=== PATIENT | female | born 1960 | race Caucasian/White ===

== ENCOUNTER 2018-06-27 22:47 | Emergency (ER) | payer MEDICAID, SELFPAY ==
[2018-06-27 22:48] VITALS: BP 151/90; PULSE 85; RESP 16; TEMP 36.3; O2SAT 98; BMI 17.4
--- NOTE | 2018-06-27 23:02 | ED.VISSUMM ---
- ER Visit Summary Date of Service: 06/27/18 Chief Complaint: [] Foot injury History of Present Illness: The patient is a 57 F patient stated she injured her left foot just prior to arrival tonight when she accidentally kicked a Bookholder in the dark. She is having tenderness in her second and third toes. No home treatment. Want to make sure she did not fracture it. She alee tape the toes together. Hurts to walk on it. 4 days ago she kicked the same object with her right oleary while walking in the dark. She just has a mild scabbed area with slight soreness. Physical Examination: [] Vital signs reviewed General: Well-nourished well-developed Head: Normocephalic atraumatic Eyes: Pupils equal round and reactive to light extraocular movements intact ENT: TMs clear no hemotympanum no trauma Neck: Nontender full range of motion Cardiovascular: Regular rate rhythm no murmurs normal S1-S2 Respiratory: No distress clear to auscultation bilaterally chest nontender Abdomen: Soft nontender nondistended normal bowel sounds no masses Back: Nontender no CVA tenderness Extremities: Right oleary exam has a 3 x 3 cm scab to her right anterior oleary over the lateral portion of the anterior tibialis muscle mid shaft. No bony tenderness. No swelling deformity or contusion. Left foot has tenderness in the second and third toes. Very small contusion at the base of these toes. No significant swelling Neuro alert oriented cranial nerves II through XII intact normal strength sensation reflexes Test Results: [] Emergency Department Course and Treatment: [] At this time I do not feel the patient fractured her right tibia. She has bruised it. It happened 4 days ago. I do not think she needs x-rays of this area. She is in agreement. I offered them to her if she would want them to ease her thoughts but she does not think she needs them as well. She mainly came in for her left foot. She does not want anything for discomfort. X-ray was obtained of her left foot where there is a fracture to her third toe proximal phalanx. She is placed in a postop shoe. She will alee tape. She declined crutches. She will follow-up with orthopedics Treatment Plan: [] Disposition: [] Impression: [] Left third toe fracture This note was generated with [employer] dictation software. It may contain incorrect words, spelling, and punctuation that were not noted in review of the chart prior to signing ED Disposition - Plan for ED Patient: Chief Complaint: Lower Extremity Injury Referrals: Jocelynn Shaw MD [Primary Care Provider] -
--- NOTE | 2018-06-27 23:06 | RAD_ITS ---
STUDY: X-RAY - LEFT FOOT CLINICAL: Female, 57 years old. Trauma TECHNIQUE: 3 view(s) of the foot. COMPARISON: None. FINDINGS: Normal talus, calcaneus, and tarsal bones. Normal visualized subtalar, talonavicular, calcaneocuboid, tarsal and tarsometatarsal articulations. Normal metatarsi. Normal metatarsophalangeal joint of the great toe. Normal tibial and fibular sesamoid bones. Normal interphalangeal joint of the great toe. Normal phalanges of the great toe. Normal second through fifth metatarsophalangeal joints. Normal interphalangeal joints. There is an acute spiral fracture through the midshaft of the proximal phalanx of the third toe without significant separation or angulation of fracture fragments The soft tissue structures are unremarkable. RAD/Foot min 3 Views IMPRESSION: Acute fracture of the proximal phalanx of the third toe Electronically Signed: Margarito Ruiz MD at 23:44 EST , Service support ,
--- NOTE | 2018-06-27 23:59 | ED.DEP ---
ED Disposition - Plan for ED Patient: Disposition: Home or Assisted Living Chief Complaint: Lower Extremity Injury Instructions: ED Fx Toe Closed Referrals: Jocelynn Shaw MD [Primary Care Provider] - David Ventura MD [STAFF PHYSICIAN] -
[2018-06-28 00:29] VITALS: RESP 16
--- NOTE | 2018-06-28 00:29 | ED.RN ---
REVIEWED D/C INSTRUCTIONS, FOLLOW UP CARE, AND S/S THAT WOULD WARRANT A RETURN TO THE ED WITH PT. PT VERBALIZED AN UNDERSTANDING AND DENIES FURTHER QUESTIONS FOR THIS RN. PT SKIN P/W/D, RESP EVEN AND UNLABORED, PT A&O X 3, NO DISTRESS NOTED. PT AMBULATED OUT OF ED, GAIT STEADY.
--- OUTSIDE RECORDS SUMMARY | 2018-08-13 15:51 | XMS RPT_ITS ---
:1960 Author Organization [facility] Care Team Providers Name Role Phone GRACIE MARIE (PT) Attending Unavailable STARDONNA Referring Unavailable GRACIE MARIE (PT) Attending Unavailable STAR, DNONA Referring Unavailable GRACIE MARIE (PT) Attending Unavailable STAR, DONNA Referring Unavailable GRACIE MARIE (PT) Attending Unavailable STAR, DONNA Referring Unavailable GRACIE MARIE (PT) Attending Unavailable STAR, DONNA Referring Unavailable DANIEL KEENE Attending Unavailable NIKO HERSIMREN Referring Unavailable GRACIE MARIE (PT) Attending Unavailable STAR, DONNA Referring Unavailable OLGA ANDERSON (DAMAGE INSIDE ADJUSTER) Referring Unavailable GANTA, JOCELYNN Attending Unavailable GANTA, JOCELYNN Referring Unavailable GANTA, JOCELYNN Referring Unavailable ROBYN HEMPHILL (PA) Referring Unavailable ROBYN HEMPHILL (PA) Attending Unavailable GANTA, JOCELYNN Referring Unavailable ALYCIA HEMPHILLHLEEN (PA) Referring Unavailable JOBY, ROBYN (PA) Attending Unavailable GANTA, JOCELYNN Referring Unavailable Primay Care Physicia, No Primary Care Unavailable Charan Cohen Attending Unavailable PROBLEMS PROBLEMS DATE TYPE CONDITION / CODE ATTENDING STATUS SOURCE 07/18/2018 Active Nondisplaced NA Active [facility] fracture of Main Fine proximal phalanx Repository of left lesser toe(s), initial encounter for closed fracture / S92.515A(ICD-10) 07/02/2018 Active Pain in left foot NA Active [facility] / M79.672(ICD-10) Main Fine Repository 06/19/2018 Active Encounter for NA Active [facility] other screening Main Fine for malignant Repository neoplasm of breast / Z12.39(ICD-10) 06/12/2018 Active Elevated NA Active [facility] blood-pressure Main Fine reading, without Repository diagnosis of hypertension / R03.0(ICD-10) 06/12/2018 Active Vitamin D NA Active [facility] deficiency, Main Fine unspecified / Repository E55.9(ICD-10) 08/08/2017 Active Unknown / CYNTHIA GRACIE Active [facility] UNK(Unknown) (PT) Main Fine Repository PROCEDURES PROCEDURES No Procedure Records FoundRESULTS RESULTS PROGRESS Observed: 07/23/2018 Status: COMPLETED Source: [place] 12:02 PM [facility] REPOSITORY HNO ID: [id number] Author: Robyn Hemphill (Pa) Service: (none) Author Type: Physician Claim Professional Type: Progress Notes Filed: 07/23/2018 2:12 PM Note Text: JOCELYNN SALDIVAR MD [address] [facility] [id number] Specialty Problems Ortho Problems Myalgia and myositis, unspecified Shoulder stiffness Radiculopathy, cervical region Primary osteoarthritis of first carpometacarpal joint of left hand Cubital tunnel syndrome on left Lateral epicondylitis of left elbow Chronic left shoulder pain Pain in left wrist Numbness and tingling in left upper extremity Pain in left elbow CC: Left toe fracture ? Injury/Surgery Date:06/27/2018 Procedure: N/A ? HPI: This is a 57 year old female who is here for evaluation of left 3rd toe injury when she hit it on the coffee table. She went to ED later that day and she had a 3rd prox phalanx fracture. She is here for 3 weeks f/u and xrays. She is doing well. She still wearing a postop shoe. She has had improvement but still complains of swelling in the toe. PAIN EVALUATION 07/23/2018 Pain Score: 3 Pain Location: Toe Description: Aching Duration Units: Weeks Frequency: Continuous Intervention: Medication;Reposition ASSESSMENT: (S92.515D) Closed nondisplaced fracture of proximal phalanx of lesser toe of left foot with routine healing, subsequent encounter (primary encounter diagnosis) PLAN: 1) Discussed options with the patient and recommended continuing with alee tape and postop shoe for the next 3 weeks. I'll see her back at that time for repeat clinical evaluation and radiographs, anytime sooner she has any problems. PHYSICAL FINDINGS: [facility] 02/11/2006 General appearance: healthy, alert, well hydrated, pleasant, no distress. Cardiovascular: no signs of upper or lower extremity edema Respiratory: no respiratory distress, no audible wheezing, no labored breathing Psychiatric: mood and affect are appropriate The Pt walks with antalgic gait favoring the left foot Musculoskeletal: Inspection: Mild soft tissue swelling of the left third digit Palpation: Tenderness to palpation left third digit and forefoot ROM: FROM Bilateral Lower Extremities Strength: 5/5 Bilateral Lower Extremities Special Tests: Calves supple and nontender Skin: no abrasions or open wounds. Neurologic: Alert and oriented x 3 and Normal speech. NVI distally. 2+ DP pulses RADIOGRAPHS:I personally reviewed multiple views of the left foot and results show no change in Alignment and positioning of fx. Robyn Hemphill PA-C CNOV Observed: 07/23/2018 Status: COMPLETED Source: [place] 11:50 AM [facility] REPOSITORY Office Visit (ORFTMN) DAVID NATION ([id number]) 1960 F Date Time Provider Department 07/23/18 11:50 AM ROBYN HEMPHILL) ORFTMN During your visit today, we recorded the following information about you: Robyn Hemphill PA-C 07/23/2018 2:12 PM Signed JOCELYNN SALDIVAR MD [id number] [facility] [address] Specialty Problems Ortho Problems Myalgia and myositis, unspecified Shoulder stiffness Radiculopathy, cervical region Primary osteoarthritis of first carpometacarpal joint of left hand Cubital tunnel syndrome on left Lateral epicondylitis of left elbow Chronic left shoulder pain Pain in left wrist Numbness and tingling in left upper extremity Pain in left elbow CC: Left toe fracture ? Injury/Surgery Date:06/27/2018 Procedure: N/A ? HPI: This is a 57 year old female who is here for evaluation of left 3rd toe injury when she hit it on the coffee table. She went to ED later that day and she had a 3rd prox phalanx fracture. She is here for 3 weeks f/u and xrays. She is doing well. She still wearing a postop shoe. She has had improvement but still complains of swelling in the toe. PAIN EVALUATION 07/23/2018 Pain Score: 3 Pain Location: Toe Description: Aching Duration Units: Weeks Frequency: Continuous Intervention: Medication;Reposition ASSESSMENT: (S96.515D) Closed nondisplaced fracture of proximal phalanx of lesser toe of left foot with routine healing, subsequent encounter (primary encounter diagnosis) PLAN: 1) Discussed options with the patient and recommended continuing with alee tape and postop shoe for the next 3 weeks. I'll see her back at that time for repeat clinical evaluation and radiographs, anytime sooner she has any problems. PHYSICAL FINDINGS: LMP 02/11/2006 General appearance: healthy, alert, well hydrated, pleasant, no distress. Cardiovascular: no signs of upper or lower extremity edema Respiratory: no respiratory distress, no audible wheezing, no labored breathing Psychiatric: mood and affect are appropriate The Pt walks with antalgic gait favoring the left foot Musculoskeletal: Inspection: Mild soft tissue swelling of the left third digit Palpation: Tenderness to palpation left third digit and forefoot ROM: FROM Bilateral Lower Extremities Strength: 5/5 Bilateral Lower Extremities Special Tests: Calves supple and nontender Skin: no abrasions or open wounds. Neurologic: Alert and oriented x 3 and Normal speech. NVI distally. 2+ DP pulses RADIOGRAPHS:I personally reviewed multiple views of the left foot and results show no change in Alignment and positioning of fx. Robyn Hemphill PA-C Referring Provider: JOCELYNN SALDIVAR [[id number]] Allergies As of Date: 07/23/2018 Noted Allergy Reaction PENICILLINS 09/21/2005 2 - Rash PREDNISONE 09/21/2005 1 - Mental Status Change Comments: Depression Date Reviewed: 07/23/2018 Reviewed by: Robyn Hempihll (Pa) - Fully Assessed Reason for Visit: Follow Up [171] Primary Visit Diagnosis:Closed nondisplaced fracture of proximal phalanx of lesser toe of left foot with routine healing, subsequent encounter [S92.515D] Order(s):XR FOOT GENERAL 3V AP/LAT/OBL LT [[id number]] Order #: [id number] FUTURE Prescriptions as of 07/23/2018 Sig: ERGOCALCIFEROL (VITAMIN D2) 5* Take 1 capsule by mouth twice* ALBUTEROL SULFATE HFA 90 MCG/* Inhale 2 Puffs as instructed * CHOLECALCIFEROL (VITAMIN D3) * Take 1 capsule by mouth twice* ALBUTEROL SULFATE HFA 90 MCG/* Inhale 2 Puffs as instructed * ATOMOXETINE 60 MG CAPSULE Take 60 mg by mouth once juan luis* Problem List As Of Date 07/23/2018 Noted Resolved MYALGIA AND MYOSITIS NOS [[id number]] Tobacco use [Z72.0] INVALID FOR* Depression with anxiety [F41.8] INVALID FOR* More... Closed fracture of distal end of left radius [S*INVALID FOR*07/02/2018 Shoulder stiffness [M25.619] INVALID FOR* Radiculopathy, cervical region [M54.12] INVALID FOR* Reflex sympathetic dystrophy of left upper extr*INVALID FOR* Primary osteoarthritis of first carpometacarpal*INVALID FOR* Lateral epicondylitis of left elbow [M77.12] INVALID FOR* Cubital tunnel syndrome on left [G56.22] INVALID FOR* Pain in left wrist [M25.532] INVALID FOR* Chronic left shoulder pain [M25.512, G89.29] INVALID FOR* Pain in left elbow [M25.522] INVALID FOR* Numbness and tingling in left upper extremity [*INVALID FOR* Disposition: Return in about 3 weeks (around 08/13/2018). Follow-up and Disposition History Recorded Encounter Status:Closed by ROBYN HEMPHILL PA-C on 07/23/18 XR FOOT 3V AP/LAT/OBL Observed: 07/18/2018 Status: F Source: [facility] 1:01 PM [facility] REPOSITORY * * *Final Report* * * DATE OF EXAM: Jul 18 2018 1:01PM [id number] [id number] - XR FOOT 3V AP/LAT/OBL LT / PROCEDURE REASON: Closed nondisplaced fracture of proximal phalanx of lesser toe of left foot, ini * * * * Physician Interpretation * * * * HISTORY: 57-YEAR-OLD FEMALE WITH Closed nondisplaced fracture of proximal phalanx of lesser toe of left foot, initial encounter . pt states 3 week follow up for left 3rd toe fx TECHNIQUE: XR FOOT 3V AP/LAT/OBL LT Laterality: LEFT Number of different views (projections): 3 COMPARISON: 07/02/2018 RESULT: Fracture of the proximal phalanx of third digit without callus formation and slight medial displacement distal fracture fragment. Foot is otherwise unchanged. IMPRESSION: THIRD PROXIMAL PHALANGEAL FRACTURE UNCHANGED FROM PREVIOUS EXAM. Route Delivery Supervisor: ROSA Transcribe Date/Time: Jul 18 2018 4:41P Dictated by : ARMANDO US MD This examination was interpreted and the report reviewed and electronically signed by: ARMANDO US MD on Jul 18 2018 4:44PM EST [id number] PROGRESS Observed: 07/18/2018 Status: COMPLETED Source: [place] 12:53 PM [facility] REPOSITORY HNO ID: [id number] Author: Kimmy TierneyRtGarima Bass Service: (none) Author Type: Livestock Rancher Type: Progress Notes Filed: 07/18/2018 1:01 PM Note Text: Radiology Service Progress Note PATIENT NAME: David Nation DATE OF SERVICE: July 18, 2018 TIME: 12:53 PM PATIENT IDENTITY VERIFICATION COMPLETED USING TWO (2) METHODS: Patient confirmed name verbally and Date of . PATIENT GENDER DATA: Female. status: : No status: NO. PATIENT RELEVANT IMPLANT DATA REVIEWED: Not Applicable RADIOLOGY DEPARTMENT: General X-ray: Exam(s) Completed: Lower Extremity X-Ray(s): Foot, Left: PERIPHERAL IV DATA: Not applicable SIGNED BY: RT Evgeny July 18, 2018 12:53 PM PROGRESS Observed: 07/02/2018 Status: COMPLETED Source: [place] 1:15 PM [facility] REPOSITORY HNO ID: [id number] Author: oRbyn Hemphill (Pa) Service: (none) Author Type: Physician Claim Professional Type: Progress Notes Filed: 07/02/2018 3:00 PM Note Text: PROVIDER: Robyn Hemphill PA-C CC: Left toe fracture Injury/Surgery Date:06/27/2018 Procedure: N/A HPI: This is a 57 year old female who is here for evaluation of left 3rd toe injury when she hit it on the coffee table. She went to ED later that day and she had a 3rd prox phalanx fracture. She is wearing p/o shoe. PAIN EVALUATION 07/02/2018 Pain Score: 3 Pain Location: Toe Description: Aching Duration Units: Days Frequency: Intermittent Intervention: Medication;Relaxation;Reposition ASSESSMENT: (M79.672) Pain in left foot (primary encounter diagnosis) (S92.515A) Closed nondisplaced fracture of proximal phalanx of lesser toe of left foot, initial encounter PLAN: 1) Discussed options with the patient and recommended alee Taping and postop shoe x 2 weeks 2) return in 2 weeks for xrays and follow up to check alignment PHYSICAL FINDINGS: LMP 02/11/2006 General appearance: healthy, alert, well hydrated, pleasant, no distress. Cardiovascular: no signs of upper or lower extremity edema Respiratory: no respiratory distress, no audible wheezing, no labored breathing Psychiatric: mood and affect are appropriate The Pt walks with antalgic gait favoring the left foot Musculoskeletal: Inspection: Mild soft tissue swelling of the left forefoot. No rotational deformity of the third digit Palpation: Tenderness to palpation left third toe proximal phalanx ROM: FROM Bilateral Lower Extremities Strength: 5/5 Bilateral Lower Extremities Special Tests: Calves supple and nontender Skin: no abrasions or open wounds. Neurologic: Alert and oriented x 3 and Normal speech. NVI distally. 2+ DP pulses RADIOGRAPHS: I personally reviewed multiple views of the left foot and results show an oblique fracture through the third proximal phalanx, nondisplaced. ROS: the following ROS are reviewed and are negative except for mentioned above: general, skin, ent, pulmonary, cardiac, gastrointestional, gu, endo, neurologic. 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 Primary Osteoarthritis of First Carpometacarpal Joint of Left Hand Lateral Epicondylitis of Left Elbow Cubital Tunnel Syndrome On Left Pain in Left Wrist Chronic Left Shoulder Pain Pain in Left Elbow Numbness and Tingling in Left Upper Extremity PSH: PAST SURGICAL HISTORY Procedure Laterality Date - APPENDECTOMY - LIGATE FALLOPIAN TUBE Tubal ligation FAMILY HX: FAMILY HISTORY Problem Relation Age of Onset - Cancer Mother - Cancer Other Niece (sister's daughter) - Psychiatry Sister suicide - Psychiatry Son Opoid dependency - Ischemic Heart Disease Brother 60 [place], heavy smoker, Etoh SOCIAL: Social History Marital status: Spouse name: Hayder Years of education: Number of children: 1 Occupational History 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 albuterol HFA (PROVENTIL HFA, VENTOLIN HFA) 90 mcg/actuation inhaler Inhale 2 Puffs as instructed every 4 hours as needed. atomoxetine (STRATTERA) 60 mg capsule Take 60 mg by mouth once daily. cholecalciferol, Vitamin D3, (VITAMIN D3) 50,000 unit cap capsule Take 1 capsule by mouth twice a week. ergocalciferol, vitamin D2, (DRISDOL) 50,000 unit capsule Take 1 capsule by mouth twice a week. No current facility-administered medications for this visit. Robyn Hemphill PA-C CNOV Observed: 07/02/2018 Status: COMPLETED Source: [place] 1:00 PM [facility] REPOSITORY Office Visit (ORFTMN) DAVID NATION ([id number]) 1960 F Date Time Provider Department 07/02/18 1:00 PM ROBYN HEMPHILL) OR[facility]MN During your visit today, we recorded the following information about you: Robyn Hemphill PA-C 07/02/2018 3:00 PM Signed PROVIDER: Robyn Hemphill PA-C CC: Left toe fracture Injury/Surgery Date:06/27/2018 Procedure: N/A HPI: This is a 57 year old female who is here for evaluation of left 3rd toe injury when she hit it on the coffee table. She went to ED later that day and she had a 3rd prox phalanx fracture. She is wearing p/o shoe. PAIN EVALUATION 07/02/2018 Pain Score: 3 Pain Location: Toe Description: Aching Duration Units: Days Frequency: Intermittent Intervention: Medication;Relaxation;Reposition ASSESSMENT: (M79.672) Pain in left foot (primary encounter diagnosis) (S92.515A) Closed nondisplaced fracture of proximal phalanx of lesser toe of left foot, initial encounter PLAN: 1) Discussed options with the patient and recommended alee Taping and postop shoe x 2 weeks 2) return in 2 weeks for xrays and follow up to check alignment PHYSICAL FINDINGS: LMP 02/11/2006 General appearance: healthy, alert, well hydrated, pleasant, no distress. Cardiovascular: no signs of upper or lower extremity edema Respiratory: no respiratory distress, no audible wheezing, no labored breathing Psychiatric: mood and affect are appropriate The Pt walks with antalgic gait favoring the left foot Musculoskeletal: Inspection: Mild soft tissue swelling of the left forefoot. No rotational deformity of the third digit Palpation: Tenderness to palpation left third toe proximal phalanx ROM: FROM Bilateral Lower Extremities Strength: 5/5 Bilateral Lower Extremities Special Tests: Calves supple and nontender Skin: no abrasions or open wounds. Neurologic: Alert and oriented x 3 and Normal speech. NVI distally. 2+ DP pulses RADIOGRAPHS: I personally reviewed multiple views of the left foot and results show an oblique fracture through the third proximal phalanx, nondisplaced. ROS: the following ROS are reviewed and are negative except for mentioned above: general, skin, ent, pulmonary, cardiac, gastrointestional, gu, endo, neurologic. 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 Primary Osteoarthritis of First Carpometacarpal Joint of Left Hand Lateral Epicondylitis of Left Elbow Cubital Tunnel Syndrome On Left Pain in Left Wrist Chronic Left Shoulder Pain Pain in Left Elbow Numbness and Tingling in Left Upper Extremity PSH: PAST SURGICAL HISTORY Procedure Laterality Date - APPENDECTOMY - LIGATE FALLOPIAN TUBE Tubal ligation FAMILY HX: FAMILY HISTORY Problem Relation Age of Onset - Cancer Mother - Cancer Other Niece (sister's daughter) - Psychiatry Sister suicide - Psychiatry Son Opoid dependency - Ischemic Heart Disease Brother 60 [place], heavy smoker, Etoh SOCIAL: Social History Marital status: Spouse name: Hayder Years of education: Number of children: 1 Occupational History 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 albuterol HFA (PROVENTIL HFA, VENTOLIN HFA) 90 mcg/actuation inhaler Inhale 2 Puffs as instructed every 4 hours as needed. atomoxetine (STRATTERA) 60 mg capsule Take 60 mg by mouth once daily. cholecalciferol, Vitamin D3, (VITAMIN D3) 50,000 unit cap capsule Take 1 capsule by mouth twice a week. ergocalciferol, vitamin D2, (DRISDOL) 50,000 unit capsule Take 1 capsule by mouth twice a week. No current facility-administered medications for this visit. Robyn Hemphill PA-C Referring Provider: JOCELYNN SALDIVAR [[id number]] Allergies As of Date: 07/02/2018 Noted Allergy Reaction PENICILLINS 09/21/2005 2 - Rash PREDNISONE 09/21/2005 1 - Mental Status Change Comments: Depression Date Reviewed: 07/02/2018 Reviewed by: Robyn Hemphill (Pa) - Fully Assessed Reason for Visit: Toe Fracture [1222] ER F/U [41] Primary Visit Diagnosis:Pain in left foot [M79.672] Other Visit Diagnosis:Closed nondisplaced fracture of proximal phalanx of lesser toe of left foot, initial encounter [S92.515A] Order(s):XR FOOT GENERAL 3V AP/LAT/OBL LT [[id number]] Order #: [id number] FUTURE XR FOOT GENERAL 3V AP/LAT/OBL LT [[id number]] Order #: [id number] FUTURE Prescriptions as of 07/02/2018 Sig: ALBUTEROL SULFATE HFA 90 MCG/* Inhale 2 Puffs as instructed * ALBUTEROL SULFATE HFA 90 MCG/* Inhale 2 Puffs as instructed * ATOMOXETINE 60 MG CAPSULE Take 60 mg by mouth once juan luis* CHOLECALCIFEROL (VITAMIN D3) * Take 1 capsule by mouth twice* ERGOCALCIFEROL (VITAMIN D2) 5* Take 1 capsule by mouth twice* Problem List As Of Date 07/02/2018 Noted Resolved MYALGIA AND MYOSITIS NOS [[id number]] Tobacco use [Z72.0] INVALID FOR* Depression with anxiety [F41.8] INVALID FOR* More... Closed fracture of distal end of left radius [S*INVALID FOR*07/02/2018 Shoulder stiffness [M25.619] INVALID FOR* Radiculopathy, cervical region [M54.12] INVALID FOR* Reflex sympathetic dystrophy of left upper extr*INVALID FOR* Primary osteoarthritis of first carpometacarpal*INVALID FOR* Lateral epicondylitis of left elbow [M77.12] INVALID FOR* Cubital tunnel syndrome on left [G56.22] INVALID FOR* Pain in left wrist [M25.532] INVALID FOR* Chronic left shoulder pain [M25.512, G89.29] INVALID FOR* Pain in left elbow [M25.522] INVALID FOR* Numbness and tingling in left upper extremity [*INVALID FOR* Medications Discontinued During This Encounter naproxen (NAPROSYN) 375 mg tablet 60 t* 5 04/17/2017 07/02/2018 Route: ORAL Sig: Take 1 tablet by mouth twice daily with meals. Patient not taking: Reported on 06/07/2018 Disc: Reason for discontinue is not on file. pregabalin (LYRICA) 25 mg capsule 90 c* 3 03/15/2017 07/02/2018 Class: Call Rx Route: ORAL Sig: Take 1 capsule by mouth three times daily. Patient not taking: Reported on 06/07/2018 Disc: Reason for discontinue is not on file. Disposition: Return in about 2 weeks (around 07/16/2018). Follow-up and Disposition History Recorded Encounter Status:Closed by ROBYN HEMPHILL PA-C on 07/02/18 XR FOOT 3V AP/LAT/OBL Observed: 07/02/2018 Status: F Source: [facility] 12:51 PM [facility] REPOSITORY * * *Final Report* * * DATE OF EXAM: Jul 02 2018 12:51PM [id number] [id number] - XR FOOT 3V AP/LAT/OBL LT / PROCEDURE REASON: Pain in left foot * * * * Physician Interpretation * * * * EXAMINATION: XR FOOT 3V AP/LAT/OBL LT HISTORY: left foot middle toe fx follow up; stubbed toe 06/27/18 Pain in left foot . TECHNIQUE: XR FOOT 3V AP/LAT/OBL LT Laterality: LEFT Number of different views (projections): 3 M: XB_1 COMPARISON: None. RESULT: There is an oblique nondisplaced fracture of the third proximal phalanx extending to the PIP joint. There is soft tissue swelling of the third digit. Joint spaces are otherwise maintained. IMPRESSION: Nondisplaced fracture of the third proximal phalanx. Route Delivery Supervisor: PSCShlomo Transcribe Date/Time: Jul 02 2018 1:36P Dictated by : JUAN HUERTAS MD This examination was interpreted and the report reviewed and electronically signed by: JUAN ANTONIO LOVE MD on Jul 02 2018 4:18PM EST [id number] PROGRESS Observed: 07/02/2018 Status: COMPLETED Source: [place] 12:49 PM [facility] REPOSITORY HNO ID: [id number] Author: Alie Schaefer Service: (none) Author Type: (none) Type: Progress Notes Filed: 07/02/2018 12:49 PM Note Text: Radiology Service Progress Note PATIENT NAME: David Nation DATE OF SERVICE: July 02, 2018 TIME: 12:49 PM PATIENT IDENTITY VERIFICATION COMPLETED USING TWO (2) METHODS: Patient confirmed name verbally and Date of . PATIENT GENDER DATA: Female. status: : No status: NO. PATIENT RELEVANT IMPLANT DATA REVIEWED: Yes RADIOLOGY DEPARTMENT: General X-ray: Exam(s) Completed: Lower Extremity X-Ray(s): Foot, Left and Wt. Bearing: PERIPHERAL IV DATA: Not applicable SIGNED BY: Alie Schaefer July 02, 2018 12:49 PM EMERGENCY DEPARTMENT Observed: 06/28/2018 Status: F Source: [facility] SUMMARY 7:15 AM [facility] REPOSITORY [facility] Medical Records Department [address] [place] [address] Emergency Department Summary 06/27/18 2302 MR#: [id number] Acct: [id number] Name: DAVID NATION Rep #: [id number] : 1960 57 From: Charan Cohen MD PCP: Jocelynn Saldivar MD Status: DEP ER - ER Visit Summary Date of Service: 06/27/18 Chief Complaint: [] Foot injury History of Present Illness: The patient is a 57 F patient stated she injured her left foot just prior to arrival tonight when she accidentally kicked a Bookholder in the dark. She is having tenderness in her second and third toes. No home treatment. Want to make sure she did not fracture it. She alee tape the toes together. Hurts to walk on it. 4 days ago she kicked the same object with her right oleary while walking in the dark. She just has a mild scabbed area with slight soreness. Physical Examination: [] Vital signs reviewed General: Well-nourished well-developed Head: Normocephalic atraumatic Eyes: Pupils equal round and reactive to light extraocular movements intact ENT: TMs clear no hemotympanum no trauma Neck: Nontender full range of motion Cardiovascular: Regular rate rhythm no murmurs normal S1-S2 Respiratory: No distress clear to auscultation bilaterally chest nontender Abdomen: Soft nontender nondistended normal bowel sounds no masses Back: Nontender no CVA tenderness Extremities: Right oleary exam has a 3 x 3 cm scab to her right anterior oleary over the lateral portion of the anterior tibialis muscle mid shaft. No bony tenderness. No swelling deformity or contusion. Left foot has tenderness in the second and third toes. Very small contusion at the base of these toes. No significant swelling Neuro alert oriented cranial nerves II through XII intact normal strength sensation reflexes Test Results: [] Emergency Department Course and Treatment: [] At this time I do not feel the patient fractured her right tibia. She has bruised it. It happened 4 days ago. I do not think she needs x-rays of this area. She is in agreement. I offered them to her if she would want them to ease her thoughts but she does not think she needs them as well. She mainly came in for her left foot. She does not want anything for discomfort. X-ray was obtained of her left foot where there is a fracture to her third toe proximal phalanx. She is placed in a postop shoe. She will alee tape. She declined crutches. She will follow-up with orthopedics Treatment Plan: [] Disposition: [] Impression: [] Left third toe fracture This note was generated with Virtualtwo dictation software. It may contain incorrect words, spelling, and punctuation that were not noted in review of the chart prior to signing ED Disposition - Plan for ED Patient: Chief Complaint: Lower Extremity Injury Referrals: Jocelynn Saldivar MD [Primary Care Provider] - What to do if you have Problems For any increased pain, shortness of breath, bleeding, nausea or vomiting, chest pain, or any unexpected problems, contact your Primary Care Provider. Call [facility] ([phone]) or report to the closest Emergency Room. Call 911 if necessary. 06/28/18 0715 <Electronically signed by Charan Coehn MD> Date Charan Cohen MD Cosigner Signature (If Indicated): Date CC: No Primary Care Physician; Jocelynn Saldivar MD DISCHARGE INSTRUCTION Observed: 06/28/2018 Status: F Source: [place] 7:15 AM [facility] REPOSITORY [facility] Medical Records Department [address] [place] [address] Discharge Instruction 06/27/18 2359 MR#: [id number] Acct: [id number] Name: RIOSDAVID Brandy Rep #: [id number] : 1960 57 From: Charan Cohen MD PCP: Jocelynn Saldivar MD Status: [facility] ER ED Disposition - Plan for ED Patient: Disposition: Home or Assisted Living Chief Complaint: Lower Extremity Injury Instructions: ED Fx Toe Closed Referrals: Jocelynn Saldivar MD [Primary Care Provider] - David Ventura MD [STAFF PHYSICIAN] - What to do if you have Problems For any increased pain, shortness of breath, bleeding, nausea or vomiting, chest pain, or any unexpected problems, contact your Primary Care Provider. Call [facility] ([phone]) or report to the closest Emergency Room. Call 911 if necessary. 06/28/18 0715 <Electronically signed by Charan Cohen MD> Date Charan Cohen MD Cosigner Signature (If Indicated): Date CC: No Primary Care Physician; Jocelynn Saldivar MD FOOT MIN 3 VIEWS Observed: 06/27/2018 Status: F Source: [place] 11:01 PM [facility] REPOSITORY [facility] Imaging Services [address] [place] [id number] Foot min 3 Views MR#: [id number] Acct: [id number] Name: DAVID NATION Rep #: [id number] : 1960 F 57 From: Margarito Ruiz MD PCP: Jocelynn Saldivar MD Status: REG ER Study: Foot min 3 Views Date of Exam: 06/27/18 Exam# [id number] Ordering Dr: Charan Cohen MD STUDY: X-RAY - LEFT FOOT CLINICAL: Female, 57 years old. Trauma TECHNIQUE: 3 view(s) of the foot. COMPARISON: None. FINDINGS: Normal talus, calcaneus, and tarsal bones. Normal visualized subtalar, talonavicular, calcaneocuboid, tarsal and tarsometatarsal articulations. Normal metatarsi. Normal metatarsophalangeal joint of the great toe. Normal tibial and fibular sesamoid bones. Normal interphalangeal joint of the great toe. Normal phalanges of the great toe. Normal second through fifth metatarsophalangeal joints. Normal interphalangeal joints. There is an acute spiral fracture through the midshaft of the proximal phalanx of the third toe without significant separation or angulation of fracture fragments The soft tissue structures are unremarkable. RAD/Foot min 3 Views IMPRESSION: Acute fracture of the proximal phalanx of the third toe Electronically Signed: Margarito Ruiz MD at 23:44 EST , Service support , CC: Jocelynn Saldivar MD; Charan Cohen MD Route Delivery Supervisor: Signed CNCO Observed: 06/19/2018 Status: COMPLETED Source: [place] 12:10 PM [facility] REPOSITORY HNO ID: [id number] Author: Mammography Coordinator Service: (none) Author Type: Physician Type: Letter Filed: 06/20/2018 11:32 PM Note Text: June 19, 2018 PID: [id number] David Nation [address] [place] [address] Dear Ms. Nation, We are pleased to inform you that the results of your recent breast imaging exam on 06/19/2018 are normal. Your mammogram demonstrates that you have dense breast tissue, which could hide abnormalities. Dense breast tissue, in and of itself, is a relatively common condition. Therefore, this information is not provided to cause undue concern; rather, it is to raise your awareness and promote discussion with your health care provider regarding the presence of dense breast tissue in addition to other risk factors. Early detection of cancer is very important. We also understand recommendations regarding breast cancer screening are controversial. Please discuss with your primary care provider which strategy is best for you and whether a mammogram is right for you. Your imaging studies and report will be kept on file at [facility] as part of your permanent medical record and are available for your continuing care. Thank you for allowing us to help in meeting your health care needs. Sincerely, Dr. Calixto Interpreting Radiologist [facility] (Normal over 40) PROCEDURE Observed: 06/19/2018 Status: COMPLETED Source: [place] 11:15 AM [facility] [place] REPOSITORY O ID: [id number] Author: Little (Garima Quinonez Service: (none) Author Type: Livestock Rancher Type: Procedures Filed: 06/19/2018 11:15 AM Note Text: Radiology Service Progress Note PATIENT NAME: David Nation DATE OF SERVICE: June 19, 2018 TIME: 11:15 AM PATIENT IDENTITY VERIFICATION COMPLETED USING TWO (2) METHODS: Patient confirmed name verbally and Date of . PATIENT GENDER DATA: Female. status: : No status: NO. PATIENT RELEVANT IMPLANT DATA REVIEWED: Not Applicable RADIOLOGY DEPARTMENT: [facility] IV DATA: Not applicable SIGNED BY: RT Lucien June 19, 2018 11:15 AM LACHELLE SCREENING Observed: 06/19/2018 Status: F Source: [place] 11:15 AM [facility] REPOSITORY * * *Final Report* * * DATE OF EXAM: Jun 19 2018 11:15AM [facility] 0581 - [facility] SCREENING / PROCEDURE REASON: Breast cancer screening other than mammogram * * * * Physician Interpretation * * * * RESULT: #[id number] - LACHELLE SCREENING BILATERAL DIGITAL SCREENING MAMMOGRAM WITH CAD: 06/19/2018 HISTORY: Breast Cancer Screening Other Than Mammogram /priors available for comparison. RESULT: TECHNIQUE: The study was acquired using full field digital technology and interpreted from soft copy. Current study was also evaluated with a Computer Aided Detection (CAD). Comparison is made to exams dated: 03/09/2017 mammogram and 05/04/2015 mammogram - [facility]. The tissue of both breasts is heterogeneously dense. This may lower the sensitivity of mammography. No significant masses, calcifications, or other findings are seen in either breast. There has been no significant interval change. IMPRESSION: There is no mammographic evidence of malignancy. A 1 year screening mammogram is recommended. Lorena Calixto M.D., mc/penrad:06/19/2018 12:10:06 Air Twist Operator(s): RT Lucien(R)(M), [facility] letter sent: Normal over 40 Mammogram BI-RADS: 1 Negative Multiple national specialty organizations have released breast cancer screening guidelines for women at average risk for developing breast cancer - guidelines that are based on both evidence and opinion, yet differ on when to start and how often to screen for breast cancer. With representation from Breast Imaging, Internal Medicine, Women's Health, Family Medicine, and Medical/Surgical Oncology, the [facility] has carefully reviewed the data and reached the following consensus: 1) All women should engage in shared decision-making with their providers to decide when to start and how often to screen; 2) All women should have the opportunity to start screening mammography at age 40; 3) For women ages 45-55, we recommend annual screening mammograms; 4) For women ages 55 and over, we support both the transition from an annual to a biennial interval if this aligns more with patient's values and preferences, or continuation with annual screening; 5) All women should discuss with their providers when to stop screening mammograms. Route Delivery Supervisor: Princess Transcribe Date/Time: Jun 19 2018 11:15A Dictated by: LORENA SNOWDEN MD This examination was interpreted and the report reviewed and electronically signed by: LORENA SNOWDEN MD on Jun 19 2018 12:10PM EST [id number] CBC AND DIFFERENTIAL Collected: 06/12/2018 Status: F Source: [place] 11:52 AM [facility] REPOSITORY TYPE CODE TESTS RESULT OUT OF REFERENCE UNITS RANGE LAB WBC 3.70-11.00 k/uL WBC 6.24 LAB RBC 3.90-5.20 m/uL RBC 4.25 LAB HGB 11.5-15.5 g/dL Hemoglobin 13.1 LAB HCT 36.0-46.0 % Hematocrit 41.0 LAB MCV 80.0-100.0 fL MCV 96.5 LAB MCH 26.0-34.0 pG MCH 30.8 LAB MCHC 30.5-36.0 g/dL MCHC 32.0 LAB RDWCV 11.5-15.0 % RDW-CV 11.8 LAB PLTCT 150-400 k/uL Platelet Count 328 LAB MPV 9.0-12.7 fL MPV 9.5 LAB ANEUT % Neut% 58.7 LAB AANEUT 1.45-7.50 k/uL Abs Neut 3.66 LAB ALYMP % Lymph% 30.1 LAB AALYMP 1.00-4.00 k/uL Abs Lymph 1.88 LAB AMONO % [place]% 7.1 LAB AAMONO <0.87 k/uL Abs [place] 0.44 LAB AEOS % Eosin% 3.0 LAB AAEOS <0.46 k/uL Abs Eosin 0.19 LAB ABASO % Baso% 1.1 LAB AABASO <0.11 k/uL Abs Baso 0.07 LAB AUNRBC 0 /100 WBC NRBCs 0.0 LAB ABNRBC <0.01 k/uL Absolute nRBC <0.01 LAB DTYP DTYPE Auto Diff Performed By: #### CBCDIF, CMP, LIPB, VITD #### [facility] [address] [place], [place] [address] COMP METABOLIC PANEL Collected: 06/12/2018 Status: F Source: [place] 11:52 AM [facility] REPOSITORY TYPE CODE TESTS RESULT OUT OF REFERENCE UNITS RANGE LAB TP 6.3-8.0 g/dL Protein, Total 6.6 LAB ALB 3.9-4.9 g/dL Albumin 4.1 LAB CA 8.5-10.2 mg/dL Calcium, Total 9.1 LAB TBIL 0.2-1.3 mg/dL Bilirubin, Total 0.4 LAB ALKP 34-123 U/L Alkaline Phosphatase 71 LAB AST 13-35 U/L AST 21 LAB GLU 74-99 mg/dL Glucose 83 Result Comment: The [place] Diabetes Association (ADA) provides guidance for cutoff values for fasting glucose and random glucose. The ADA defines fasting as no caloric intake for at least 8 hours. Fas ting plasma glucose results between 100 to 125 mg/dL indicate increased risk for diabetes (prediabetes). Fasting plasma glucose results greater than or equal to 126 mg/dL meet the criteria for diagnosis of diabetes. In the absence of unequivocal hyperglycemia, results should be confirmed by repeat testing. In a patient with classic symptoms of hyperglycemia or hyperglycemic crisis, random plasma glucose results greater than or equal to 200 mg/dL meet the criteria for diagnosis of diabetes. Reference: Standards of Medical Care in Diabetes 2016, [place] Diabetes Association. Diabetes Care. 2016.39(Suppl 1). LAB BUN 7-21 mg/dL BUN 10 LAB CRET 0.58-0.96 mg/dL Creatinine 0.67 LAB NA 136-144 mmol/L Sodium 141 LAB K 3.7-5.1 mmol/L Potassium 4.5 LAB CL 97-105 mmol/L Chloride 105 LAB CO2 22-30 mmol/L CO2 25 LAB AGAP 9-18 mmol/L Anion Gap 11 LAB ALT 7-38 U/L ALT 11 LAB GFRAA eGFR- Amer. >60 LAB GFRNAA . eGFR-All Other Races >60 Result Comment: eGFR (Estimated GFR) Units of measure: mL/min/1.73 meters squared eGFR is derived from the reexpressed MDRD Study equation using the following parameters: serum creatinine, age, gender and race. The creatinine assay has been calibrated to be traceable to IDMS. An eGFR <60 mL/min/1.73m2 for >3 months is consistent with chronic kidney disease. Refer to KDOQI guidelines for clinical interpretation. In patients with unstable renal function, e.g. those with acute kidney injury, the eGFR may not accurately reflect actual GFR. Performed By: #### CBCDIF, CMP, LIPB, VITD #### [facility] [address] [place], [place] [address] LIPID PANEL, BASIC Collected: 06/12/2018 Status: F Source: [place] 11:52 AM [facility] REPOSITORY TYPE CODE TESTS RESULT OUT OF REFERENCE UNITS RANGE LAB CHOL <200 mg/dL Cholesterol 185 Result Comment: <200 mg/dL, Desirable 200-239 mg/dL, Borderline high >239 mg/dL, High LAB TRIGLY <150 mg/dL Triglyceride 67 Result Comment: <150 mg/dL, Normal 150-199 mg/dL, Borderline high 200-499 mg/dL, High >499 mg/dL, Very high LAB HDL >39 mg/dL HDL-Cholesterol 52 Result Comment: 40-59 mg/dL, Acceptable >59 mg/dL, High: Negative risk factor for coronary heart disease <40 mg/dL, Low: Positive risk factor for coronary heart disease LAB LDL <100 mg/dL LDL-Cholesterol High 120 Result Comment: <100 mg/dL, Optimal 100-129 mg/dL, Near optimal/above optimal 130-159 mg/dL, Borderline high 160-189 mg/dL, High >189 mg/dL, Very high Secondary prevention optimal LDL Cholesterol levels are recommended to be < 70 mg/dL LAB NONHDL <130 mg/dL Non HDL High Cholesterol 133 Result Comment: <130 mg/dL, Optimal 130-159 mg/dL, Near optimal/above optimal 160-189 mg/dL, Borderline high 190-219 mg/dL, High >219 mg/dL, Very high Secondary prevention optimal non HDL Cholesterol levels are recommended to be < 100 mg/dL LAB FT hrs Fasting Time 14 LAB VLDL <30 mg/dL VLDL Cholesterol 13 LAB TCHDL <5.10 TC:HDL Ratio 3.56 LAB LDLHDL <2.54 LDL:HDL Ratio 2.31 Result Comment: Reference: 1. National Cholesterol Education Program ATP III Guideline At-A-Glance Quick Desk Reference: National Heart, Lung, and Blood [place]. National Institutes of Health. 2001: NIH Publication No. 01-3305. 2. An International Atherosclerosis Society position paper: global recommendations for the management of dyslipidemia: executive summary, Atherosclerosis. 2014: 232(2):410-413. Performed By: #### CBCDIF, CMP, LIPB, VITD #### [facility] [address] [place] [id number] VITAMIN D 25 HYDROXY Collected: 06/12/2018 Status: F Source: [place] 11:52 AM [facility] REPOSITORY TYPE CODE TESTS RESULT OUT OF REFERENCE UNITS RANGE LAB VITD 31.0-80.0 ng/mL Low Vitamin D 25 17.3 Hydroxy Result Comment: Classification of 25 [place] Vitamin D status: Insufficiency/Moderate Deficiency: < or = 30 ng/mL Sufficiency/Optimal Levels: 31 to 80 ng/mL Toxicity: > 100 ng/mL Test performed by chemiluminescent immunoassay. Performed By: #### CBCDIF, CMP, LIPB, VITD #### [facility] [address] [place] [id number] PROGRESS Observed: 06/12/2018 Status: COMPLETED Source: [place] 10:31 AM [facility] REPOSITORY HNO ID: [id number] Author: Jocelynn Saldivar Service: (none) Author Type: Physician Type: Progress Notes Filed: 06/12/2018 1:06 PM Note Text: Reason for Visit Patient presents with: Established Patient: preventative visit- worried about BP David Nation is a 57 year old female who presents here today for CPE. Health Maintenance DTAP,TDAP,TD(1 - Tdap) HEPATITIS C SCREENING COLORECTAL CANCER SCREENING,SEE MODIFIER MAMMOGRAM INFLUENZA(1) HPI Severe vit d def , she has not followed up with me in quite a while. 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 Patient needs to have some labs She is concerned about her bp today, she knows off and on when she gets her bp checked. She did quit smoking and and did not drink her morning coffee. She is willing to but down Going to Use nicorette gums. She has been through a lot recent past 8 years, lost sister to suicide, brother of [place], and last november she broke her wrist, and last year her brother had aortic dissection. Notes she takes strattera, rx by Dr Travis. She was having problems sleeping, she took it a couple of times. She has a son who is struggling with opiate addiction. Diet is well balanced , stress is more because if her mother and son. Sleep - she sleeps well. No problem-specific Assessment AND Plan notes found for this encounter. PAST MEDICAL HISTORY Diagnosis Date - Attention deficit disorder without mention of hyperactivity Adult - Excessive or frequent menstruation - Myalgia and myositis, unspecified PAST SURGICAL HISTORY Procedure Laterality Date - APPENDECTOMY - LIGATE FALLOPIAN TUBE Tubal ligation FAMILY HISTORY Problem Relation Age of Onset - Cancer Mother - Cancer Unknown Niece (sister's daughter) - Psychiatry Sister suicide - Psychiatry Son Opoid dependency - Ischemic Heart Disease Brother 60 [place], heavy smoker, Etoh Social History Substance Use Topics - Smoking status: Former Smoker Types: Cigarettes - Smokeless tobacco: Never Used - Alcohol use No Past medical history, appointments, medications, allergies reviewed. Pertinent Lab/Diagnostic Studies are reviewed and discussed today Current Outpatient Prescriptions: - albuterol HFA (PROVENTIL HFA, VENTOLIN HFA) 90 mcg/actuation inhaler - doxycycline monohydrate (MONODOX) 100 mg capsule - atomoxetine (STRATTERA) 60 mg capsule - albuterol HFA (PROAIR HFA) 90 mcg/actuation inhaler - naproxen (NAPROSYN) 375 mg tablet - pregabalin (LYRICA) 25 mg capsule Review of Systems CONSTITUTIONAL: No fevers, chills, nightsweats, unintended weight loss HEENT: Denies frequent or severe heaches, nasal congestion/sinus symptoms, problematic allergy problems. EYES: No diplopia or blurry vision. CARDIOVASCULAR: No chest pain, dyspnea, palpitations, orthopnea, PND, ankle edema. PULM: No dyspnea, unexplained cough. GI: No dysphagia/odynophagia, problematic reflux, constipation, diarrhea, changes in stool habits, hematochezia, melena. : No new urinary complaints, including dysuria, gross hematuria or pyuria. NEURO: No new balance problems, peripheral weakness/paresthesias or numbness of concern. MUSC-SKEL: No new joint pain, swelling, or erythema. PSY: No concerns regarding depression, anxiety or panic. INTEGUMENTARY: No new skin changes (rash, new or changing mole, new growth) Physical Exam BP 124/70 (BP Site: Right Arm, BP Position: Sitting, BP Cuff Size: Regular Adult) Pulse 78 Resp 12 Ht 162.6 cm (5' 4) Wt 44.9 kg (99 lb) LMP 02/11/2006 SpO2 100% BMI 16.99 kg/m? General appearance: Well appearing, alert, in no acute distress, well-hydrated, well nourished. Skin: Skin color, texture, turgor normal, no suspicious rashes or lesions Head: Normocephalic, no masses, lesions, tenderness or abnormalities Eyes: Anicteric sclera. Pupils are equally round and reactive to light. Extraocular movements are intact. Ears: External ears normal, canals clear Nose/Sinuses: Nares normal, septum midline, mucosa normal, no drainage or sinus tenderness Oropharynx: Lips, mucosa, and tongue normal, teeth and gums normal, oropharynx normal Neck: Supple, no adenopathy; thyroid symmetric, normal size, no bruits Back: Normal exam Lungs: Lungs clear to auscultation. No wheezing, rhonchi, rales Heart: RRR without murmur, gallop, or rubs. No ectopy Abdomen: Normal abdominal exam, Abdomen soft, non-tender. Bowel sounds normal. No masses, organomegaly Extremities: No deformities, edema, skin discoloration, clubbing or cyanosis. Good capillary refill. Musculoskeletal: No joint swelling, deformity, or tenderness Peripheral pulses: Normal Neuro: Gait normal. Reflexes normal and symmetric. Sensation grossly intact. ASSESSMENT/PLAN: 1. Annual physical exam - ICD9: V70.0, ICD10: Z00.00 (primary diagnosis) - Encouraged monthly Breast Self Exam - Follow up for annual exam in one year. 2. Sinobronchitis - ICD9: 473.9, 490, ICD10: J32.9, J40 - Will begin treatment with as per antibiotic as written, see orders - ALBUTEROL SULFATE HFA 90 MCG/ACTUATION AEROSOL INHALER 3. Tobacco use - ICD9: 305.1, ICD10: Z72.0 - Cessation encouraged. - Physiologic and physical aspects of tobacco addiction as well as strategies for quitting were discussed. - Counseling was given focusing on the harmful effects of this addiction especially given the patient's medical condition(s) which will be worsened because of the chemicals in tobacco. 4. Depression with anxiety - ICD9: 300.4, ICD10: F41.8 5. Breast cancer screening other than mammogram - ICD9: V76.10, ICD10: Z12.39 - Completed pelvic and breast exam - Encouraged monthly BSE - Follow up for annual exam in one year. - LACHELLE SCREENING 6. Elevated blood pressure reading - ICD9: 796.2, ICD10: R03.0 - Encouraged dietary sodium restriction/DASH diet - Recommended regular aerobic exercise. - Recommend home blood pressure monitoring, to bring results in on next visit - Goal of BP <130/80 - LIPID PANEL BASIC - CBC + DIFF - COMP METABOLIC PANEL 7. Vitamin D deficiency - ICD9: 268.9, ICD10: E55.9 - VITAMIN D 25 HYDROXY - CHOLECALCIFEROL (VITAMIN D3) 50,000 UNIT CAPSULE 8. Colon cancer screening - ICD9: V76.51, ICD10: Z12.11 - FECAL OCCULT BLOOD TEST JOCELYNN SALDIVAR MD CNOV Observed: 06/12/2018 Status: COMPLETED Source: [place] 10:00 AM [facility] REPOSITORY Office Visit (INTMWS) DAVID NATION ([id number]) 1960 F Date Time Provider Department 06/12/18 10:00 AM JOCELYNN SALDIVAR During your visit today, we recorded the following information about you: Pulse Respiration Blood pressure Weight 78/minute 12/minute 124/70 44.9 kg Height 1.626 m JOCELYNN SALDIVAR MD 06/12/2018 1:06 PM Signed Reason for Visit Patient presents with: Established Patient: preventative visit- worried about BP David Nation is a 57 year old female who presents here today for CPE. Health Maintenance DTAP,TDAP,TD(1 - Tdap) HEPATITIS C SCREENING COLORECTAL CANCER SCREENING,SEE MODIFIER MAMMOGRAM INFLUENZA(1) HPI Severe vit d def , she has not followed up with me in quite a while. 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 Patient needs to have some labs She is concerned about her bp today, she knows off and on when she gets her bp checked. She did quit smoking and and did not drink her morning coffee. She is willing to but down Going to Use nicorette gums. She has been through a lot recent past 8 years, lost sister to suicide, brother of [place], and last november she broke her wrist, and last year her brother had aortic dissection. Notes she takes strattera, rx by Dr Travis. She was having problems sleeping, she took it a couple of times. She has a son who is struggling with opiate addiction. Diet is well balanced , stress is more because if her mother and son. Sleep - she sleeps well. No problem-specific Assessment AND Plan notes found for this encounter. PAST MEDICAL HISTORY Diagnosis Date - Attention deficit disorder without mention of hyperactivity Adult - Excessive or frequent menstruation - Myalgia and myositis, unspecified PAST SURGICAL HISTORY Procedure Laterality Date - APPENDECTOMY - LIGATE FALLOPIAN TUBE Tubal ligation FAMILY HISTORY Problem Relation Age of Onset - Cancer Mother - Cancer Unknown Niece (sister's daughter) - Psychiatry Sister suicide - Psychiatry Son Opoid dependency - Ischemic Heart Disease Brother 60 [place], heavy smoker, Etoh Social History Substance Use Topics - Smoking status: Former Smoker Types: Cigarettes - Smokeless tobacco: Never Used - Alcohol use No Past medical history, appointments, medications, allergies reviewed. Pertinent Lab/Diagnostic Studies are reviewed and discussed today Current Outpatient Prescriptions: - albuterol HFA (PROVENTIL HFA, VENTOLIN HFA) 90 mcg/actuation inhaler - doxycycline monohydrate (MONODOX) 100 mg capsule - atomoxetine (STRATTERA) 60 mg capsule - albuterol HFA (PROAIR HFA) 90 mcg/actuation inhaler - naproxen (NAPROSYN) 375 mg tablet - pregabalin (LYRICA) 25 mg capsule Review of Systems CONSTITUTIONAL: No fevers, chills, nightsweats, unintended weight loss HEENT: Denies frequent or severe heaches, nasal congestion/sinus symptoms, problematic allergy problems. EYES: No diplopia or blurry vision. CARDIOVASCULAR: No chest pain, dyspnea, palpitations, orthopnea, PND, ankle edema. PULM: No dyspnea, unexplained cough. GI: No dysphagia/odynophagia, problematic reflux, constipation, diarrhea, changes in stool habits, hematochezia, melena. : No new urinary complaints, including dysuria, gross hematuria or pyuria. NEURO: No new balance problems, peripheral weakness/paresthesias or numbness of concern. MUSC-SKEL: No new joint pain, swelling, or erythema. PSY: No concerns regarding depression, anxiety or panic. INTEGUMENTARY: No new skin changes (rash, new or changing mole, new growth) Physical Exam BP 124/70 (BP Site: Right Arm, BP Position: Sitting, BP Cuff Size: Regular Adult) Pulse 78 Resp 12 Ht 162.6 cm (5' 4) Wt 44.9 kg (99 lb) LMP 02/11/2006 SpO2 100% BMI 16.99 kg/m? General appearance: Well appearing, alert, in no acute distress, well-hydrated, well nourished. Skin: Skin color, texture, turgor normal, no suspicious rashes or lesions Head: Normocephalic, no masses, lesions, tenderness or abnormalities Eyes: Anicteric sclera. Pupils are equally round and reactive to light. Extraocular movements are intact. Ears: External ears normal, canals clear Nose/Sinuses: Nares normal, septum midline, mucosa normal, no drainage or sinus tenderness Oropharynx: Lips, mucosa, and tongue normal, teeth and gums normal, oropharynx normal Neck: Supple, no adenopathy; thyroid symmetric, normal size, no bruits Back: Normal exam Lungs: Lungs clear to auscultation. No wheezing, rhonchi, rales Heart: RRR without murmur, gallop, or rubs. No ectopy Abdomen: Normal abdominal exam, Abdomen soft, non-tender. Bowel sounds normal. No masses, organomegaly Extremities: No deformities, edema, skin discoloration, clubbing or cyanosis. Good capillary refill. Musculoskeletal: No joint swelling, deformity, or tenderness Peripheral pulses: Normal Neuro: Gait normal. Reflexes normal and symmetric. Sensation grossly intact. ASSESSMENT/PLAN: 1. Annual physical exam - ICD9: V70.0, ICD10: Z00.00 (primary diagnosis) - Encouraged monthly Breast Self Exam - Follow up for annual exam in one year. 2. Sinobronchitis - ICD9: 473.9, 490, ICD10: J32.9, J40 - Will begin treatment with as per antibiotic as written, see orders - ALBUTEROL SULFATE HFA 90 MCG/ACTUATION AEROSOL INHALER 3. Tobacco use - ICD9: 305.1, ICD10: Z72.0 - Cessation encouraged. - Physiologic and physical aspects of tobacco addiction as well as strategies for quitting were discussed. - Counseling was given focusing on the harmful effects of this addiction especially given the patient's medical condition(s) which will be worsened because of the chemicals in tobacco. 4. Depression with anxiety - ICD9: 300.4, ICD10: F41.8 5. Breast cancer screening other than mammogram - ICD9: V76.10, ICD10: Z12.39 - Completed pelvic and breast exam - Encouraged monthly BSE - Follow up for annual exam in one year. - LACHELLE SCREENING 6. Elevated blood pressure reading - ICD9: 796.2, ICD10: R03.0 - Encouraged dietary sodium restriction/DASH diet - Recommended regular aerobic exercise. - Recommend home blood pressure monitoring, to bring results in on next visit - Goal of BP <130/80 - LIPID PANEL BASIC - CBC + DIFF - COMP METABOLIC PANEL 7. Vitamin D deficiency - ICD9: 268.9, ICD10: E55.9 - VITAMIN D 25 HYDROXY - CHOLECALCIFEROL (VITAMIN D3) 50,000 UNIT CAPSULE 8. Colon cancer screening - ICD9: V76.51, ICD10: Z12.11 - FECAL OCCULT BLOOD TEST MD JOCELYNN CHAVEZ MD 06/12/2018 10:59 AM Signed SMOKING CESSATION Stopping smoking is the most important thing you can do to protect your current and future health, as well as that of your family. It is the most potent risk factor for the future development of coronary artery disease and heart attacks. Smoking is both an addiction and a learned behavior. The nicotine withdrawal takes anywhere from 2-4 weeks and results in symptoms such as irritability, fatigue, insomnia, coughing, dizziness, poor concentration, hunger and cigarette cravings. After the nicotine withdrawal period, the learned linkage between certain acts or situations and cigarette use remain. Strategies to deal with these must be developed along with new behaviors to ensure successful smoking cessation. STRATEGIES TOWARD SMOKING CESSATION - Make a list of the reasons why you want to quit, plus the benefits to be gained, and compare them to the reasons why you should continue to smoke. - Pick a specific quit date. - If you are interested in using nicotine patches or gum to assist with the nicotine withdrawal, let the staff know. - Inform friends, family, and co-workers that you are quitting and when your quit date is. Ask for their understanding and support. - Prepare your environment by removing all cigarettes prior to your quit date. - Prior to your quit date, avoid smoking in places where you spend a lot of time (such as the house, work, car). - From previous quit attempts, identify what helped you to stop smoking. - From previous quit attempts, identify what triggered relapse. How can you avoid that again? - What things (situations, emotions) do you anticipate will be most challenging, especially in the first few weeks, to your quitting effort? - What can you do to address these challenges? - Avoid (or limit) alcohol consumption during the quitting process. - If your spouse or close coworker currently smoke, consider quitting together or at the very least, develop specific plans to maintain your cigarette abstinence while in the home or at work. - Take each day, each hour, each craving, one at a time. Every step or action you take toward smoking cessation is a success. The only failure is the failure to try. - The health of you and your family, is worth the effort. STOP SMOKING CHECK LIST Preparing to Quit: ___ Make a personal pact with yourself to quit. ___ Pick a date for quitting completely. (My date to quit is ____.) ___ Write down on a card the three most important reasons for quitting. Carry the card with you from now on. Look at it several times a day. ___ Prior to quitting, eliminate smoking completely in 2 or 3 of your high risk situations. ___ Reduce consumption to one pack per day or less. ___ Change to a less desirable brand of cigarettes. ___ Discard your deckhand tuna boat. Use matches. Carry your cigarettes in a different place. ___ Spend a little time each day picturing in your mind stressful events occurring in the future and you not smoking. Actual Quitting: The First Two Weeks ___ Get rid of all cigarettes. Put away all smoking related objects such as ashtrays. Ask the people you live with not to smoke in your presence for the first two weeks. ___ Spend as much time as possible with non-smoking people. ___ Keep busy, especially on evenings and weekends. ___ Avoid high risk situations (large parties, bars, etc.). ___ Spend lots of time in places that prohibit or discourage smoking (e.g., theaters, libraries.) ___ Drink plenty of fluids. ___ Don't substitute food or sugar based products for cigarettes. Use approved substitutions. (... ice water, high bulk/low calorie foods, sugarless gum, mouthwash, brushing teeth.) ___ Begin or increase regular exercise program. ___ When experiencing withdrawal effects: 1. Remind yourself why you are quitting (from your card). 2. Remind yourself that whatever discomfort you are experiencing is only a tiny fraction of the probable discomfort associated with continued smoking. 3. Practice deep breathing or other relaxation techniques - tapes. ___ Remind yourself that you can free yourself from this unhealthy, expensive, messy habit and become a non-smoker. Maintenance of Quitting: After two weeks ___ Remind yourself that the desire to smoke is linked to a great many situations, people and emotional stress. ___ When you do have a desire to smoke, remember that it only lasts a few seconds: distract yourself and leave the situation if necessary. ___ After each desire to smoke has passed, pat yourself on the back, you have just made progress in breaking the habit forever. ___ Save the money on wasted on cigarettes in a special fund and buy yourself something nice. Maintenance of Quitting: After Two Months ___ Be particularly vigilant when unusual life events occur. (.. weddings, holidays, vacations.) ___ Be particularly vigilant when stressful life events occur (e.g., relationship problems, financial or work problems.) ___ Remind yourself regularly that not smoking is completely within your personal control. ___ Never lull yourself into thinking you are out of danger and you can safely have a cigarette or two. -- you cannot!!!!! ___ If, by chance, you do slip and have one or more cigarettes, do not conclude that all is lost. Return to complete abstinence immediately and learn from your experience. ___ If you have gained significant weight since quitting, now is the time to do something about it. ___ Each time you see a cigarettes advertisement, remind yourself of why you quit. Also remember that a [employer] spends billions of dollars each year trying to get people like yourself re-hooked. SMOKING CESSATION: Please call the Cancer Answer Line at [facility] Sunday - Sunday 8 am - 4:30 pm for assistance: [phone]. Your doctor advises you to stop smoking because of the bad effects it has on your health. Tobacco smoke has over 200 known poisons and smoking increases the risk of many medical problems including: ? Pneumonia, bronchitis, and emphysema. ? Cancers of the lung, lip, mouth, voice box, pancreas, and bladder. There are over 30 chemicals in tobacco smoke that cause cancer. ? Heart attacks, angina, stroke, and peripheral blood vessel disease. ? Stomach ulcers and internal bleeding. ? Stillbirths and smaller babies. ? Facial wrinkles, blindness, and increased risk for fractures. ? Cancer, respiratory infections, and heart disease in your spouse and children from second-hand smoke exposure and genetic damage to sperm. Even smoking lightly shortens your life expectancy by several years; a 2-pack a-day smoker loses about 8 years of his or her life. You can greatly reduce the risk of medical problems by stopping now. Within days of quitting smoking your circulation returns to normal, you lessen the risk of having a heart attack, and your lung capacity improves. It may take months to clear up your lungs. Quitting for 10 years cuts your lung cancer risk to about that of nonsmokers. It is not easy to quit smoking. Nicotine is addicting, and longtime habits are hard to change. To start with you can write down all your reasons to quit and tell your family and friends you want to quit and ask for their help. Throw your cigarettes away, chew gum or cinnamon sticks, keep your hands busy, and drink extra water or juice. Go for walks and practice deep breathing to relax. Think of all the money you are saving, from $500-1,000 a year for the average pack-a-day smoker. Nicotine gum and patches have clearly been shown to improve success at efforts to stop smoking. Zyban is an anti-depressant drug that may be prescribed to reduce nicotine withdrawal symptoms and the urge to smoke. For more information and advice on programs to stop smoking, call your doctor, the lung or heart association, or your local cancer society. You may also try the [employer] Quit Line phone number or visit them on the internet [email or web address] Referring Provider: SELF [200] Allergies As of Date: 06/12/2018 Noted Allergy Reaction PENICILLINS 09/21/2005 2 - Rash PREDNISONE 09/21/2005 1 - Mental Status Change Comments: Depression Date Reviewed: 06/12/2018 Reviewed by: Komal Olivares LPN - Fully Assessed Reason for Visit: Established Patient [175] Cmt: preventative visit- worried about BP Primary Visit Diagnosis:Annual physical exam [Z00.00] Other Visit Diagnoses:Sinobronchitis [J32.9, J40] Tobacco use [Z72.0] Depression with anxiety [F41.8] Breast cancer screening other than mammogram [Z12.39] Elevated blood pressure reading [R03.0] Vitamin D deficiency [E55.9] Colon cancer screening [Z12.11] Order(s):LACHELLE SCREENING [[id number]] Order #: [id number] FUTURE albuterol HFA (PROVENTIL HFA, VENTOLIN HFA) 90 mcg/actuation inhalerInhale 2 Puffs as instructed every 4 hours as needed.Disp: 1 InhalerRfl: 0 LIPID PANEL BASIC [SQLIPB] Order #: [id number] FUTURE CBC + DIFF [SQCBCDIF] Order #: [id number] FUTURE COMP METABOLIC PANEL [SQCMP] Order #: [id number] FUTURE VITAMIN D 25 HYDROXY [SQVITD] Order #: [id number] FUTURE cholecalciferol, Vitamin D3, (VITAMIN D3) 50,000 unit cap capsuleTake 1 capsule by mouth twice a week.Disp: 24 capsuleRfl: 2 FECAL OCCULT BLOOD TEST [SQIFOBT] Order #: [id number] FUTURE Prescriptions as of 06/12/2018 Sig: ALBUTEROL SULFATE HFA 90 MCG/* Inhale 2 Puffs as instructed * DOXYCYCLINE MONOHYDRATE 100 M* Take 1 capsule by mouth twice* ATOMOXETINE 60 MG CAPSULE Take 60 mg by mouth once juan luis* CHOLECALCIFEROL (VITAMIN D3) * Take 1 capsule by mouth twice* ALBUTEROL SULFATE HFA 90 MCG/* Inhale 2 Puffs as instructed * NAPROXEN 375 MG TABLET Take 1 tablet by mouth twice * Patient not taking: Reported on 06/07/2018 PREGABALIN 25 MG CAPSULE Take 1 capsule by mouth three* Patient not taking: Reported on 06/07/2018 Medication notes this encounter NAPROXEN 375 MG TABLET >> Komal Olivares LPN 06/12/2018 10:10 AM >> [facility]OM[facility] OLIVAR[facility] SunJun 12, 2018 10:10 AM not taking PREGABALIN 25 MG CAPSULE >> Komal Olivares BREAKER UP 06/12/2018 10:10 AM >> KOMAL OLIVARES [facility] SunJun 12, 2018 10:10 AM not taking Problem List As Of Date 06/12/2018 Noted Resolved MYALGIA AND MYOSITIS NOS [[id number]] Tobacco use [Z72.0] INVALID FOR* Depression with anxiety [F41.8] INVALID FOR* More... Closed fracture of distal end of left radius [S*INVALID FOR* Shoulder stiffness [M25.619] INVALID FOR* Radiculopathy, cervical region [M54.12] INVALID FOR* Reflex sympathetic dystrophy of left upper extr*INVALID FOR* Primary osteoarthritis of first carpometacarpal*INVALID FOR* Lateral epicondylitis of left elbow [M77.12] INVALID FOR* Cubital tunnel syndrome on left [G56.22] INVALID FOR* Pain in left wrist [M25.532] INVALID FOR* Chronic left shoulder pain [M25.512, G89.29] INVALID FOR* Pain in left elbow [M25.522] INVALID FOR* Numbness and tingling in left upper extremity [*INVALID FOR* Other instructions from your clinician: SMOKING CESSATION Stopping smoking is the most important thing you can do to protect your current and future health, as well as that of your family. It is the most potent risk factor for the future development of coronary artery disease and heart attacks. Smoking is both an addiction and a learned behavior. The nicotine withdrawal takes anywhere from 2-4 weeks and results in symptoms such as irritability, fatigue, insomnia, coughing, dizziness, poor concentration, hunger and cigarette cravings. After the nicotine withdrawal period, the learned linkage between certain acts or situations and cigarette use remain. Strategies to deal with these must be developed along with new behaviors to ensure successful smoking cessation. STRATEGIES TOWARD SMOKING CESSATION - Make a list of the reasons why you want to quit, plus the benefits to be gained, and compare them to the reasons why you should continue to smoke. - Pick a specific quit date. - If you are interested in using nicotine patches or gum to assist with the nicotine withdrawal, let the staff know. - Inform friends, family, and co-workers that you are quitting and when your quit date is. Ask for their understanding and support. - Prepare your environment by removing all cigarettes prior to your quit date. - Prior to your quit date, avoid smoking in places where you spend a lot of time (such as the house, work, car). - From previous quit attempts, identify what helped you to stop smoking. - From previous quit attempts, identify what triggered relapse. How can you avoid that again? - What things (situations, emotions) do you anticipate will be most challenging, especially in the first few weeks, to your quitting effort? - What can you do to address these challenges? - Avoid (or limit) alcohol consumption during the quitting process. - If your spouse or close coworker currently smoke, consider quitting together or at the very least, develop specific plans to maintain your cigarette abstinence while in the home or at work. - Take each day, each hour, each craving, one at a time. Every step or action you take toward smoking cessation is a success. The only failure is the failure to try. - The health of you and your family, is worth the effort. STOP SMOKING CHECK LIST Preparing to Quit: ___ Make a personal pact with yourself to quit. ___ Pick a date for quitting completely. (My date to quit is ____.) ___ Write down on a card the three most important reasons for quitting. Carry the card with you from now on. Look at it several times a day. ___ Prior to quitting, eliminate smoking completely in 2 or 3 of your high risk situations. ___ Reduce consumption to one pack per day or less. ___ Change to a less desirable brand of cigarettes. ___ Discard your deckhand tuna boat. Use matches. Carry your cigarettes in a different place. ___ Spend a little time each day picturing in your mind stressful events occurring in the future and you not smoking. Actual Quitting: The First Two Weeks ___ Get rid of all cigarettes. Put away all smoking related objects such as ashtrays. Ask the people you live with not to smoke in your presence for the first two weeks. ___ Spend as much time as possible with non-smoking people. ___ Keep busy, especially on evenings and weekends. ___ Avoid high risk situations (large parties, bars, etc.). ___ Spend lots of time in places that prohibit or discourage smoking (e.g., theaters, libraries.) ___ Drink plenty of fluids. ___ Don't substitute food or sugar based products for cigarettes. Use approved substitutions. (... ice water, high bulk/low calorie foods, sugarless gum, mouthwash, brushing teeth.) ___ Begin or increase regular exercise program. ___ When experiencing withdrawal effects: 1. Remind yourself why you are quitting (from your card). 2. Remind yourself that whatever discomfort you are experiencing is only a tiny fraction of the probable discomfort associated with continued smoking. 3. Practice deep breathing or other relaxation techniques - tapes. ___ Remind yourself that you can free yourself from this unhealthy, expensive, messy habit and become a non-smoker. Maintenance of Quitting: After two weeks ___ Remind yourself that the desire to smoke is linked to a great many situations, people and emotional stress. ___ When you do have a desire to smoke, remember that it only lasts a few seconds: distract yourself and leave the situation if necessary. ___ After each desire to smoke has passed, pat yourself on the back, you have just made progress in breaking the habit forever. ___ Save the money on wasted on cigarettes in a special fund and buy yourself something nice. Maintenance of Quitting: After Two Months ___ Be particularly vigilant when unusual life events occur. (.. weddings, holidays, vacations.) ___ Be particularly vigilant when stressful life events occur (e.g., relationship problems, financial or work problems.) ___ Remind yourself regularly that not smoking is completely within your personal control. ___ Never lull yourself into thinking you are out of danger and you can safely have a cigarette or two. -- you cannot!!!!! ___ If, by chance, you do slip and have one or more cigarettes, do not conclude that all is lost. Return to complete abstinence immediately and learn from your experience. ___ If you have gained significant weight since quitting, now is the time to do something about it. ___ Each time you see a cigarettes advertisement, remind yourself of why you quit. Also remember that a [employer] spends billions of dollars each year trying to get people like yourself re-hooked. SMOKING CESSATION: Please call the Cancer Answer Line at [facility] [place] Sunday - Sunday 8 am - 4:30 pm for assistance: [phone]. Your doctor advises you to stop smoking because of the bad effects it has on your health. Tobacco smoke has over 200 known poisons and smoking increases the risk of many medical problems including: ? Pneumonia, bronchitis, and emphysema. ? Cancers of the lung, lip, mouth, voice box, pancreas, and bladder. There are over 30 chemicals in tobacco smoke that cause cancer. ? Heart attacks, angina, stroke, and peripheral blood vessel disease. ? Stomach ulcers and internal bleeding. ? Stillbirths and smaller babies. ? Facial wrinkles, blindness, and increased risk for fractures. ? Cancer, respiratory infections, and heart disease in your spouse and children from second-hand smoke exposure and genetic damage to sperm. Even smoking lightly shortens your life expectancy by several years; a 2-pack a-day smoker loses about 8 years of his or her life. You can greatly reduce the risk of medical problems by stopping now. Within days of quitting smoking your circulation returns to normal, you lessen the risk of having a heart attack, and your lung capacity improves. It may take months to clear up your lungs. Quitting for 10 years cuts your lung cancer risk to about that of nonsmokers. It is not easy to quit smoking. Nicotine is addicting, and longtime habits are hard to change. To start with you can write down all your reasons to quit and tell your family and friends you want to quit and ask for their help. Throw your cigarettes away, chew gum or cinnamon sticks, keep your hands busy, and drink extra water or juice. Go for walks and practice deep breathing to relax. Think of all the money you are saving, from $500-1,000 a year for the average pack-a-day smoker. Nicotine gum and patches have clearly been shown to improve success at efforts to stop smoking. Zyban is an anti-depressant drug that may be prescribed to reduce nicotine withdrawal symptoms and the urge to smoke. For more information and advice on programs to stop smoking, call your doctor, the lung or heart association, or your local cancer society. You may also try the [employer] Quit Line phone number or visit them on the internet [email or web address] Prescriptions ordered this encounter Disp Refills Start End ALBUTEROL SULFATE HFA 90 MCG/ACTUATI* 1 In* 0 06/12/2018 Route: INHALATION Sig: Inhale 2 Puffs as instructed every 4 hours as needed. CHOLECALCIFEROL (VITAMIN D3) 50,000 * 24 c* 2 06/12/2018 Route: ORAL Sig: Take 1 capsule by mouth twice a week. Medications Discontinued During This Encounter albuterol HFA (PROVENTIL HFA, VENTOL* 1 In* 0 06/07/2018 06/12/2018 Route: INHALATION Sig: Inhale 2 Puffs as instructed every 4 hours as needed. Disc: Reason for discontinue is not on file. Encounter Status:Closed by JOCELYNN SALDIVAR MD on 06/12/18 PROGRESS Observed: 06/07/2018 Status: COMPLETED Source: [place] 4:23 PM [facility] [place] REPOSITORY O ID: [id number] Author: Zoey Bejarano Service: (none) Author Type: Physician Claim Professional Type: Progress Notes Filed: 06/07/2018 5:11 PM Note Text: 06/07/2018 Patient presents with: Head Congestion: chest congestion, sinus pain and pressure, chills x 5 days SUBJECTIVE: This is a 57 year old that is here today for Complaint(s) of nasal congestion and chest congestion x 5 days. + sinus pressure and pain. Overall not feeling well. Denies fever/chills, SOB, wheezing, vomiting, diarrhea. Has tried zyrtec. Used Albuterol 1 hour before visit. PAST MEDICAL HISTORY Diagnosis Date - Attention deficit disorder without mention of hyperactivity Adult - Excessive or frequent menstruation - Myalgia and myositis, unspecified ALLERGIES Penicillins; Prednisone MEDICATIONS Current Outpatient Prescriptions: albuterol HFA (PROAIR HFA) 90 mcg/actuation inhaler Inhale 2 Puffs as instructed every 4 hours as needed. atomoxetine (STRATTERA) 60 mg capsule Take 60 mg by mouth once daily. naproxen (NAPROSYN) 375 mg tablet Take 1 tablet by mouth twice daily with meals. (Patient not taking: Reported on 06/07/2018 ) pregabalin (LYRICA) 25 mg capsule Take 1 capsule by mouth three times daily. (Patient not taking: Reported on 06/07/2018 ) No current facility-administered medications for this visit. 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 OBJECTIVE: BP 146/88 Pulse 102 Temp 36.9 ?C (98.4 ?F) (Tympanic) Resp 18 Wt 44.5 kg (98 lb) LMP 02/11/2006 SpO2 99% BMI 16.82 kg/m? APPEARANCE Well appearing, alert, in no acute distress, well-hydrated, well nourished. EYES PERRLA, conjunctiva and sclera normal. EARS External ears normal, canals clear. TMs normal DEYA NOSE/SINUS Nares normal. Septum midline. Mucosa normal. No drainage. + DEYA maxillary sinus tenderness. THROAT normal, no erythema NECK Supple, no adenopathy; HEART RRR with normal S1 and S2, LUNG clear to auscultation, No wheezing, rhonchi, rales. ASSESSMENT/PLAN: 1. Sinobronchitis - ICD9: 473.9, 490, ICD10: J32.9, J40 - The patient should also be given OTC cough and cold meds as needed, warm salt water gargles, throat lozenges and/or OTC throat spray as needed and nasal saline gtts and suction prn for the first 5-7 days of treatment. - Supportive care with plenty of fluids, rest, and analgesia prn. - Follow up in 3-5 days if symptoms persist or worsen. - ALBUTEROL SULFATE HFA 90 MCG/ACTUATION AEROSOL INHALER - DOXYCYCLINE MONOHYDRATE 100 MG CAPSULE-rx printed if not improving in the next 5-7 days, sooner if worsening Recommend mayiicidin. 2. Elevated BP without diagnosis of hypertension - ICD9: 796.2, ICD10: R03.0 F/u with PCP's office in 2 weeks for recheck Zoey Bejarano PA-C CNOV Observed: 06/07/2018 Status: COMPLETED Source: [place] 4:00 PM [facility] REPOSITORY Office Visit (WSTR) DAVID NATION ([id number]) 1960 F Date Time Provider Department 06/07/18 4:00 PM ZOEY BEJARANO) WSTR During your visit today, we recorded the following information about you: Temperature Pulse Respiration Blood pressure 98.4 degrees 102/minute 18/minute 146/88 Weight 44.5 kg Zoey Bejarano PA-C 06/07/2018 5:11 PM Signed 06/07/2018 Patient presents with: Head Congestion: chest congestion, sinus pain and pressure, chills x 5 days SUBJECTIVE: This is a 57 year old that is here today for Complaint(s) of nasal congestion and chest congestion x 5 days. + sinus pressure and pain. Overall not feeling well. Denies fever/chills, SOB, wheezing, vomiting, diarrhea. Has tried zyrtec. Used Albuterol 1 hour before visit. PAST MEDICAL HISTORY Diagnosis Date - Attention deficit disorder without mention of hyperactivity Adult - Excessive or frequent menstruation - Myalgia and myositis, unspecified ALLERGIES Penicillins; Prednisone MEDICATIONS Current Outpatient Prescriptions: albuterol HFA (PROAIR HFA) 90 mcg/actuation inhaler Inhale 2 Puffs as instructed every 4 hours as needed. atomoxetine (STRATTERA) 60 mg capsule Take 60 mg by mouth once daily. naproxen (NAPROSYN) 375 mg tablet Take 1 tablet by mouth twice daily with meals. (Patient not taking: Reported on 06/07/2018 ) pregabalin (LYRICA) 25 mg capsule Take 1 capsule by mouth three times daily. (Patient not taking: Reported on 06/07/2018 ) No current facility-administered medications for this visit. 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 OBJECTIVE: BP 146/88 Pulse 102 Temp 36.9 ?C (98.4 ?F) (Tympanic) Resp 18 Wt 44.5 kg (98 lb) LMP 02/11/2006 SpO2 99% BMI 16.82 kg/m? APPEARANCE Well appearing, alert, in no acute distress, well- hydrated, well nourished. EYES PERRLA, conjunctiva and sclera normal. EARS External ears normal, canals clear. TMs normal DEYA NOSE/SINUS Nares normal. Septum midline. Mucosa normal. No drainage. + DEYA maxillary sinus tenderness. THROAT normal, no erythema NECK Supple, no adenopathy; HEART RRR with normal S1 and S2, LUNG clear to auscultation, No wheezing, rhonchi, rales. ASSESSMENT/PLAN: 1. Sinobronchitis - ICD9: 473.9, 490, ICD10: J32.9, J40 - The patient should also be given OTC cough and cold meds as needed, warm salt water gargles, throat lozenges and/or OTC throat spray as needed and nasal saline gtts and suction prn for the first 5-7 days of treatment. - Supportive care with plenty of fluids, rest, and analgesia prn. - Follow up in 3-5 days if symptoms persist or worsen. - ALBUTEROL SULFATE HFA 90 MCG/ACTUATION AEROSOL INHALER - DOXYCYCLINE MONOHYDRATE 100 MG CAPSULE-rx printed if not improving in the next 5-7 days, sooner if worsening Recommend coricidin. 2. Elevated BP without diagnosis of hypertension - ICD9: 796.2, ICD10: R03.0 F/u with PCP's office in 2 weeks for recheck Zoey Bejarano PA-C Referring Provider: SELF [[id number]] Allergies As of Date: 06/07/2018 Noted Allergy Reaction PENICILLINS 09/21/2005 2 - Rash PREDNISONE 09/21/2005 1 - Mental Status Change Comments: Depression Date Reviewed: 06/07/2018 Reviewed by: Radha Mansfield Ma - Fully Assessed Reason for Visit: Head Congestion [234] Cmt: chest congestion, sinus pain and pressure, chills x 5 days Primary Visit Diagnosis:Sinobronchitis [J32.9, J40] Other Visit Diagnosis:Elevated BP without diagnosis of hypertension [R03.0] Order(s):albuterol HFA (PROVENTIL HFA, VENTOLIN HFA) 90 mcg/actuation inhalerInhale 2 Puffs as instructed every 4 hours as needed.Disp: 1 InhalerRfl: 0 doxycycline monohydrate (MONODOX) 100 mg capsuleTake 1 capsule by mouth twice daily for 10 days.Disp: 20 capsuleRfl: 0 Prescriptions as of 06/07/2018 Sig: ALBUTEROL SULFATE HFA 90 MCG/* Inhale 2 Puffs as instructed * ATOMOXETINE 60 MG CAPSULE Take 60 mg by mouth once juan luis* ALBUTEROL SULFATE HFA 90 MCG/* Inhale 2 Puffs as instructed * DOXYCYCLINE MONOHYDRATE 100 M* Take 1 capsule by mouth twice* NAPROXEN 375 MG TABLET Take 1 tablet by mouth twice * Patient not taking: Reported on 06/07/2018 PREGABALIN 25 MG CAPSULE Take 1 capsule by mouth three* Patient not taking: Reported on 06/07/2018 Problem List As Of Date 06/07/2018 Noted Resolved MYALGIA AND MYOSITIS NOS [[id number]] Tobacco use [Z72.0] INVALID FOR* Depression with anxiety [F41.8] INVALID FOR* More... Closed fracture of distal end of left radius [S*INVALID FOR* Shoulder stiffness [M25.619] INVALID FOR* Radiculopathy, cervical region [M54.12] INVALID FOR* Reflex sympathetic dystrophy of left upper extr*INVALID FOR* Primary osteoarthritis of first carpometacarpal*INVALID FOR* Lateral epicondylitis of left elbow [M77.12] INVALID FOR* Cubital tunnel syndrome on left [G56.22] INVALID FOR* Pain in left wrist [M25.532] INVALID FOR* Chronic left shoulder pain [M25.512, G89.29] INVALID FOR* Pain in left elbow [M25.522] INVALID FOR* Numbness and tingling in left upper extremity [*INVALID FOR* Prescriptions ordered this encounter Disp Refills Start End ALBUTEROL SULFATE HFA 90 MCG/ACTUATI* 1 In* 0 06/07/2018 Route: INHALATION Sig: Inhale 2 Puffs as instructed every 4 hours as needed. DOXYCYCLINE MONOHYDRATE 100 MG CAPSU* 20 c* 0 06/07/2018 06/17/2018 Class: Print RX Route: ORAL Sig: Take 1 capsule by mouth twice daily for 10 days. Encounter Status:Closed by ZOEY BEJARANO PA-C on 06/07/18 PROGRESS Observed: 01/21/2018 Status: COMPLETED Source: [place] 3:43 PM [facility] REPOSITORY HNO ID: [id number] Author: Gracie Marie Service: (none) Author Type: Physical Therapist Type: Progress Notes Filed: 01/21/2018 3:43 PM Note Text: [facility] PHYSICAL THERAPY DISCONTINUANCE OF CARE Plan of Care Period: Start of Care Date: 02/13/17 Last Visit Date: 09/28/17 Therapy Program: The following is a summary of the interventions provided for this episode of care; Therapeutic exercise, Neuromuscular re-education, Manual therapy and Patient/Family/Caregiver Education Assessment: The following is the goal status: Goals for Episode of Care Goals updated on 09/26/17 [place] in home exercise program. Met Patient will decrease pain rating by 2 points to meet minimal clinical important difference for numeric pain rating scale. Met Patient will increase active ROM of left shoulder to equal right to allow pt to improved performance of ADLs. Met Patient will increase active ROM of left wrist to equal right to allow pt to improved performance of ADLs. Met Perform lifting 10 lbs without pain. Partially met, able to lift 6lbs over shoulders at previous session Demonstrate improvement on functional score: Patient will improve his/her score on Quick DASH by 8% to indicate a Minimal Clinical Important Difference . Met 2 point discrimination equal left and right wrists not assessed tolerate mirror therapy with active movement, 5 minutes without exacerbation of pain previously partially met Based on the most recent progress report, patient was progressing as expected toward functional goals based on home exercise program compliance, pain levels, documented subjective information on progress, documented objective information regarding ADL's, range of motion and overall function and appointment compliance. Reason for Discontinuation of Care: Patient has not returned to therapy or scheduled additional follow-up appointments. Gracie Marie, PT XR CHEST 2V FRONTAL/LAT Observed: 12/11/2017 Status: F Source: [place] 1:51 PM [facility] REPOSITORY * * *Final Report* * * DATE OF EXAM: Dec 11 2017 1:51PM WRX [id number] - XR CHEST 2V FRONTAL/LAT / PROCEDURE REASON: Cough * * * * Physician Interpretation * * * * EXAMINATION: CHEST RADIOGRAPH (2 VIEW FRONTAL and LATERAL) Clinical History: Cough MQ: [id number]_5 Comparison: Chest x-ray on 10/22/2014 RESULT: Lines, tubes, and devices: None. Lungs and pleura: No consolidation. No lung mass. No pleural effusion. Cardiomediastinal silhouette: Normal cardiomediastinal silhouette. Other: None. IMPRESSION: No acute radiographic abnormality. Route Delivery Supervisor: ROSA Transcribe Date/Time: Dec 11 2017 1:55P Dictated by : SUMMER ESTRELLA MD This examination was interpreted and the report reviewed and electronically signed by: SUMMER ESTRELLA MD on Dec 11 2017 1:55PM EST [id number] Observed: 12/11/2017 Status: COMPLETED Source: [place] 1:45 PM [facility] REPOSITORY HNO ID: [id number] Author: Garima Pineda (Rt) Service: (none) Author Type: Livestock Rancher Type: Progress Notes Filed: 12/11/2017 1:45 PM Note Text: Radiology Service Progress Note PATIENT NAME: David Nation DATE OF SERVICE: December 11, 2017 TIME: 1:45 PM PATIENT IDENTITY VERIFICATION COMPLETED USING TWO (2) METHODS: Patient confirmed name verbally and Date of . PATIENT GENDER DATA: Female. status: : No status: NO. PATIENT RELEVANT IMPLANT DATA REVIEWED: Not Applicable RADIOLOGY DEPARTMENT: General X-ray: Exam(s) Completed: Chest X-Ray PERIPHERAL IV DATA: Not applicable SIGNED BY: RT Miriam December 11, 2017 1:45 PM PROGRESS Observed: 12/09/2017 Status: COMPLETED Source: [place] 12:40 PM [facility] [place] REPOSITORY HNO ID: [id number] Author: Olga Anderson Service: (none) Author Type: Nurse Practitioner Type: Progress Notes Filed: 12/09/2017 2:16 PM Note Text: Subjective The history is provided by the patient. No speech language pathologist was used. Headache Associated symptoms include nausea. Pertinent negatives include no fever, no malaise/fatigue and no shortness of breath. HPI David Nation is a 57 year old female who presents today for CC of chest congestion This started 2 days ago She is also having sinus headache, nausea, and muscle aches Symptoms are worsened by nothing She has tried mucinex. Risk factors none noted. PMH not significant. BP 112/70 Pulse 85 Temp 36.6 ?C (97.8 ?F) (Left Tympanic) Resp 12 Wt 44 kg (97 lb) LMP 02/11/2006 SpO2 99% BMI 16.65 kg/m? 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 Primary Osteoarthritis of First Carpometacarpal Joint of Left Hand Lateral Epicondylitis of Left Elbow Cubital Tunnel Syndrome On Left Pain in Left Wrist Chronic Left Shoulder Pain Pain in Left Elbow Numbness and Tingling in Left Upper Extremity Family History Problem Relation Age of Onset - Cancer Mother - Cancer Niece (sister's daughter) - Psychiatry Sister suicide - Psychiatry Son Opoid dependency - Ischemic Heart Disease Brother 60 [place], heavy smoker, Etoh Social History Marital status: Spouse name: Hayder Years of education: Number of children: 1 Occupational History 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 Negative for chills, fever and malaise/fatigue. HENT: Positive for ear pain (ear pressure) and sinus pain. Negative for congestion and sore throat. Respiratory: Positive for cough. Negative for sputum production, shortness of breath and wheezing. Cardiovascular: Negative for chest pain. Gastrointestinal: Positive for nausea. Musculoskeletal: Negative for myalgias. Skin: Negative for rash. Neurological: Positive for headaches (sinus). Objective Physical Exam Constitutional: She is well-developed, well-nourished, and in no distress. HENT: Head: Normocephalic and atraumatic. Right Ear: Tympanic membrane, external ear and ear canal normal. Tympanic membrane is not injected, not erythematous, not retracted and not bulging. No middle ear effusion. Left Ear: Tympanic membrane, external ear and ear canal normal. Tympanic membrane is not injected, not erythematous, not retracted and not bulging. No middle ear effusion. Nose: Mucosal edema and rhinorrhea present. Right sinus exhibits maxillary sinus tenderness and frontal sinus tenderness. Left sinus exhibits maxillary sinus tenderness and frontal sinus tenderness. Mouth/Throat: Uvula is midline and mucous membranes are normal. No oropharyngeal exudate, posterior oropharyngeal edema, posterior oropharyngeal erythema or tonsillar abscesses. Clear post nasal drainage Eyes: Conjunctivae and EOM are normal. Pupils are equal, round, and reactive to light. Neck: Normal range of motion. Muscular tenderness present. No neck rigidity. No Brudzinski's sign and no Kernig's sign noted. Cardiovascular: Normal rate, regular rhythm and normal heart sounds. Pulmonary/Chest: Effort normal and breath sounds normal. No respiratory distress. She has no decreased breath sounds. She has no wheezes. She has no rhonchi. She has no rales. Lymphadenopathy: Head (right side): No submental, no submandibular, no tonsillar, no preauricular and no posterior auricular adenopathy present. Head (left side): No submental, no submandibular, no tonsillar, no preauricular and no posterior auricular adenopathy present. She has no cervical adenopathy. Right cervical: No superficial cervical and no posterior cervical adenopathy present. Left cervical: No superficial cervical and no posterior cervical adenopathy present. Right: No supraclavicular adenopathy present. Left: No supraclavicular adenopathy present. Neurological: She has normal motor skills, normal sensation, normal strength and normal reflexes. Skin: Skin is warm and dry. Psychiatric: Affect normal. Nursing note and vitals reviewed. ASSESSMENT/PLAN: 1. Sinus pain - ICD9: 478.19, ICD10: J34.89 (primary diagnosis) Cold versus allergies - Will begin treatment with: Zyrtec 10 mg By mouth daily at bedtime Flonase or Nasonex 1 spray each nostril two times a day. -Increase fluid intake. Try to drink at least 8 glasses of non caffeinated fluids daily. --Rest as much as possible. -Do the nasal saline irrigation at least 2 x day to relieve nasal mucous and congestion: brands include Abdiel Med, Simply saline, [place] nasal spray, or even the generic store brand one is ok. -Monitor for signs of worsening infection: increased temperature, pain in face, ear pain or headaches or increase in nasal congestion/mucous that is not improving. - Supportive care with plenty of fluids, rest, and tylenol and ibuprofen. - Follow up in one week if symptoms persist or worsen. 2. Cough - ICD9: 786.2, ICD10: R05 Will get XRay and call with results. If desires will send in [facility] for cough - XR CHEST 2V FRONTAL/LAT Diagnosis and treatment plan were discussed and questions were answered to the patient's satisfaction. Pt acknowledged understanding of concepts and follow up plan. Specific signs and symptoms that would indicate the need for higher level of care were discussed in detail warranting prompt ER evaluation. Olga Anderson APRN.CNP CNOV Observed: 12/09/2017 Status: COMPLETED Source: [place] 12:00 PM [facility] REPOSITORY Office Visit (WSTR) DAVID NATION ([id number]) 1960 F Date Time Provider Department 12/09/17 12:00 PM OLGA ANDERSON (SUNG) WSTR During your visit today, we recorded the following information about you: Temperature Pulse Respiration Blood pressure 97.8 degrees 85/minute 12/minute 112/70 Weight 44 kg Olga Anderson APRN.CNP 12/09/2017 2:16 PM Addendum Subjective The history is provided by the patient. No speech language pathologist was used. Headache Associated symptoms include nausea. Pertinent negatives include no fever, no malaise/fatigue and no shortness of breath. HPI David Nation is a 57 year old female who presents today for CC of chest congestion This started 2 days ago She is also having sinus headache, nausea, and muscle aches Symptoms are worsened by nothing She has tried mucinex. Risk factors none noted. PMH not significant. BP 112/70 Pulse 85 Temp 36.6 ?C (97.8 ?F) (Left Tympanic) Resp 12 Wt 44 kg (97 lb) LMP 02/11/2006 SpO2 99% BMI 16.65 kg/m? 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 Primary Osteoarthritis of First Carpometacarpal Joint of Left Hand Lateral Epicondylitis of Left Elbow Cubital Tunnel Syndrome On Left Pain in Left Wrist Chronic Left Shoulder Pain Pain in Left Elbow Numbness and Tingling in Left Upper Extremity Family History Problem Relation Age of Onset - Cancer Mother - Cancer Niece (sister's daughter) - Psychiatry Sister suicide - Psychiatry Son Opoid dependency - Ischemic Heart Disease Brother 60 [place], heavy smoker, Etoh Social History Marital status: Spouse name: Hayder Years of education: Number of children: 1 Occupational History 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 Negative for chills, fever and malaise/fatigue. HENT: Positive for ear pain (ear pressure) and sinus pain. Negative for congestion and sore throat. Respiratory: Positive for cough. Negative for sputum production, shortness of breath and wheezing. Cardiovascular: Negative for chest pain. Gastrointestinal: Positive for nausea. Musculoskeletal: Negative for myalgias. Skin: Negative for rash. Neurological: Positive for headaches (sinus). Objective Physical Exam Constitutional: She is well-developed, well-nourished, and in no distress. HENT: Head: Normocephalic and atraumatic. Right Ear: Tympanic membrane, external ear and ear canal normal. Tympanic membrane is not injected, not erythematous, not retracted and not bulging. No middle ear effusion. Left Ear: Tympanic membrane, external ear and ear canal normal. Tympanic membrane is not injected, not erythematous, not retracted and not bulging. No middle ear effusion. Nose: Mucosal edema and rhinorrhea present. Right sinus exhibits maxillary sinus tenderness and frontal sinus tenderness. Left sinus exhibits maxillary sinus tenderness and frontal sinus tenderness. Mouth/Throat: Uvula is midline and mucous membranes are normal. No oropharyngeal exudate, posterior oropharyngeal edema, posterior oropharyngeal erythema or tonsillar abscesses. Clear post nasal drainage Eyes: Conjunctivae and EOM are normal. Pupils are equal, round, and reactive to light. Neck: Normal range of motion. Muscular tenderness present. No neck rigidity. No Brudzinski's sign and no Kernig's sign noted. Cardiovascular: Normal rate, regular rhythm and normal heart sounds. Pulmonary/Chest: Effort normal and breath sounds normal. No respiratory distress. She has no decreased breath sounds. She has no wheezes. She has no rhonchi. She has no rales. Lymphadenopathy: Head (right side): No submental, no submandibular, no tonsillar, no preauricular and no posterior auricular adenopathy present. Head (left side): No submental, no submandibular, no tonsillar, no preauricular and no posterior auricular adenopathy present. She has no cervical adenopathy. Right cervical: No superficial cervical and no posterior cervical adenopathy present. Left cervical: No superficial cervical and no posterior cervical adenopathy present. Right: No supraclavicular adenopathy present. Left: No supraclavicular adenopathy present. Neurological: She has normal motor skills, normal sensation, normal strength and normal reflexes. Skin: Skin is warm and dry. Psychiatric: Affect normal. Nursing note and vitals reviewed. ASSESSMENT/PLAN: 1. Sinus pain - ICD9: 478.19, ICD10: J34.89 (primary diagnosis) Cold versus allergies - Will begin treatment with: Zyrtec 10 mg By mouth daily at bedtime Flonase or Nasonex 1 spray each nostril two times a day. -Increase fluid intake. Try to drink at least 8 glasses of non caffeinated fluids daily. --Rest as much as possible. -Do the nasal saline irrigation at least 2 x day to relieve nasal mucous and congestion: brands include Abdiel Med, Simply saline, [place] nasal spray, or even the generic store brand one is ok. -Monitor for signs of worsening infection: increased temperature, pain in face, ear pain or headaches or increase in nasal congestion/mucous that is not improving. - Supportive care with plenty of fluids, rest, and tylenol and ibuprofen. - Follow up in one week if symptoms persist or worsen. 2. Cough - ICD9: 786.2, ICD10: R05 Will get XRay and call with results. If desires will send in tesslon for cough - XR CHEST 2V FRONTAL/LAT Diagnosis and treatment plan were discussed and questions were answered to the patient's satisfaction. Pt acknowledged understanding of concepts and follow up plan. Specific signs and symptoms that would indicate the need for higher level of care were discussed in detail warranting prompt ER evaluation. OMER Goldsmith APRN.CNP 12/09/2017 12:57 PM Signed ASSESSMENT/PLAN: 1. Sinus pain - ICD9: 478.19, ICD10: J34.89 (primary diagnosis) - Will begin treatment with: Zyrtec 10 mg By mouth daily at bedtime Flonase or Nasonex 1 spray each nostril two times a day. -Increase fluid intake. Try to drink at least 8 glasses of non caffeinated fluids daily. --Rest as much as possible. -Do the nasal saline irrigation at least 2 x day to relieve nasal mucous and congestion: brands include Abdiel Med, Simply saline, [place] nasal spray, or even the generic store brand one is ok. -Monitor for signs of worsening infection: increased temperature, pain in face, ear pain or headaches or increase in nasal congestion/mucous that is not improving. - Supportive care with plenty of fluids, rest, and tylenol and ibuprofen. - Follow up in one week if symptoms persist or worsen. 2. Cough - ICD9: 786.2, ICD10: R05 Will get XRay and call with results. [facility] desires [facility] - XR CHEST 2V FRONTAL/LAT Referring Provider: SELF [[id number]] Allergies As of Date: 12/09/2017 Noted Allergy Reaction PENICILLINS 09/21/2005 2 - Rash PREDNISONE 09/21/2005 1 - Mental Status Change Comments: Depression Date Reviewed: 12/09/2017 Reviewed by: Olga Anderson - Fully Assessed Reason for Visit: Sinus Infection,frequent/recurring [1167] Headache [52] Primary Visit Diagnosis:Sinus pain [J34.89] Other Visit Diagnosis:Cough [R05] Order(s):XR CHEST 2V FRONTAL/LAT [[id number]] Order #: [id number] Prescriptions as of 12/09/2017 Sig: ATOMOXETINE 60 MG CAPSULE Take 60 mg by mouth once juan luis* ALBUTEROL SULFATE HFA 90 MCG/* Inhale 2 Puffs as instructed * DOXEPIN 10 MG CAPSULE Take 2 capsules by mouth juan luis* NAPROXEN 375 MG TABLET Take 1 tablet by mouth twice * PREGABALIN 25 MG CAPSULE Take 1 capsule by mouth three* Problem List As Of Date 12/09/2017 Noted Resolved MYALGIA AND MYOSITIS NOS [[id number]] Tobacco use [Z72.0] INVALID FOR* Depression with anxiety [F41.8] INVALID FOR* More... Closed fracture of distal end of left radius [S*INVALID FOR* Shoulder stiffness [M25.619] INVALID FOR* Radiculopathy, cervical region [M54.12] INVALID FOR* Reflex sympathetic dystrophy of left upper extr*INVALID FOR* Primary osteoarthritis of first carpometacarpal*INVALID FOR* Lateral epicondylitis of left elbow [M77.12] INVALID FOR* Cubital tunnel syndrome on left [G56.22] INVALID FOR* Pain in left wrist [M25.532] INVALID FOR* Chronic left shoulder pain [M25.512, G89.29] INVALID FOR* Pain in left elbow [M25.522] INVALID FOR* Numbness and tingling in left upper extremity [*INVALID FOR* Other instructions from your clinician: ASSESSMENT/PLAN: 1. Sinus pain - ICD9: 478.19, ICD10: J34.89 (primary diagnosis) - Will begin treatment with: Zyrtec 10 mg By mouth daily at bedtime Flonase or Nasonex 1 spray each nostril two times a day. -Increase fluid intake. Try to drink at least 8 glasses of non caffeinated fluids daily. --Rest as much as possible. -Do the nasal saline irrigation at least 2 x day to relieve nasal mucous and congestion: brands include Abdiel Med, Simply saline, [place] nasal spray, or even the generic store brand one is ok. -Monitor for signs of worsening infection: increased temperature, pain in face, ear pain or headaches or increase in nasal congestion/mucous that is not improving. - Supportive care with plenty of fluids, rest, and tylenol and ibuprofen. - Follow up in one week if symptoms persist or worsen. 2. Cough - ICD9: 786.2, ICD10: R05 Will get XRay and call with results. If desires will send in tesslon for cough - XR CHEST 2V FRONTAL/LAT Encounter Status:Closed by OLGA ANDERSON CNP on 12/09/17 PROGRESS Observed: 10/04/2017 Status: COMPLETED Source: [facility] 7:59 PM [facility] RE[facility] HNO ID: [id number] Author: Tapan Sheriff Service: (none) Author Type: Physician Type: Progress Notes Filed: 10/04/2017 8:13 PM Note Text: Patient presents with: rash on hands: x 2 weeks HPI: Rash: Location: Dorsal wrists/hands Present for at least 1 1/2 weeks Pruritis: Yes Pain: Yes Change: Started as a small spot on her left wrist Bleeding/ulceration/blister/pustule: Red patches, bumps Contacts with rash: No Exposure: Worked outside in leaves a couple weeks ago. No new soaps, detergents, fabric softeners, lotions, medications. bronchitis recently. Treatment: Lotions MEDICATIONS: albuterol HFA (PROAIR HFA) 90 mcg/actuation inhaler Inhale 2 Puffs as instructed every 4 hours as needed. atomoxetine (STRATTERA) 60 mg capsule Take 60 mg by mouth once daily. doxepin capsule 10 mg Take 2 capsules by mouth daily at bedtime. naproxen (NAPROSYN) 375 mg tablet Take 1 tablet by mouth twice daily with meals. pregabalin (LYRICA) 25 mg capsule Take 1 capsule by mouth three times daily. ALLERGIES: ALLERGIES Allergen Reactions - Penicillins Rash - Prednisone Mental Status Change Depression VITALS: BP 118/80 Pulse 84 Temp 36.1 ?C (97 ?F) (Tympanic) Resp 16 Wt 45.5 kg (100 lb 6.4 oz) LMP 02/11/2006 BMI 17.23 kg/m2 PHYSICAL EXAM: GEN: pleasant, no acute distress, alert SKIN: Erythematous patches and papules on bilateral dorsal hands between 1st and 3rd metacarpals and carpals. ASSESSMENT/PLAN: 1. Allergic contact dermatitis, unspecified trigger - ICD9: 692.9, ICD10: L23.9 Exposure most likely during yard work a couple weeks ago. - TRIAMCINOLONE ACETONIDE 0.1 % TOPICAL CREAM Tapan Sheriff MD CNOV Observed: 10/04/2017 Status: COMPLETED Source: [facility] 7:45 PM [facility] REPOSITORY Office Visit (UCWSTR) DAVID NATION ([id number]) 1960 F Date Time Provider Department 10/04/17 7:45 PM [facility] During your visit today, we recorded the following information about you: Temperature Pulse Respiration Blood pressure 97 degrees 84/minute 16/minute 118/80 Weight 45.5 kg Tapan Sheriff MD 10/04/2017 8:13 PM Signed Patient presents with: rash on hands: x 2 weeks HPI: Rash: Location: Dorsal wrists/hands Present for at least 1 1/2 weeks Pruritis: Yes Pain: Yes Change: Started as a small spot on her left wrist Bleeding/ulceration/blister/pustule: Red patches, bumps Contacts with rash: No Exposure: Worked outside in leaves a couple weeks ago. No new soaps, detergents, fabric softeners, lotions, medications. bronchitis recently. Treatment: Lotions MEDICATIONS: albuterol HFA (PROAIR HFA) 90 mcg/actuation inhaler Inhale 2 Puffs as instructed every 4 hours as needed. atomoxetine (STRATTERA) 60 mg capsule Take 60 mg by mouth once daily. doxepin capsule 10 mg Take 2 capsules by mouth daily at bedtime. naproxen (NAPROSYN) 375 mg tablet Take 1 tablet by mouth twice daily with meals. pregabalin (LYRICA) 25 mg capsule Take 1 capsule by mouth three times daily. ALLERGIES: ALLERGIES Allergen Reactions - Penicillins Rash - Prednisone Mental Status Change Depression VITALS: BP 118/80 Pulse 84 Temp 36.1 ?C (97 ?F) (Tympanic) Resp 16 Wt 45.5 kg (100 lb 6.4 oz) LMP 02/11/2006 BMI 17.23 kg/m2 PHYSICAL EXAM: GEN: pleasant, no acute distress, alert SKIN: Erythematous patches and papules on bilateral dorsal hands between 1st and 3rd metacarpals and carpals. ASSESSMENT/PLAN: 1. Allergic contact dermatitis, unspecified trigger - ICD9: 692.9, ICD10: L23.9 Exposure most likely during yard work a couple weeks ago. - TRIAMCINOLONE ACETONIDE 0.1 % TOPICAL CREAM Tapan Sheriff MD Referring Provider: SELF [200] Allergies As of Date: 10/04/2017 Noted Allergy Reaction PENICILLINS 09/21/2005 2 - Rash PREDNISONE 09/21/2005 1 - Mental Status Change Comments: Depression Date Reviewed: 10/04/2017 Reviewed by: Kathleen Scott LPN - Fully Assessed Reason for Visit: rash on hands [Other] Cmt: x 2 weeks Primary Visit Diagnosis:Allergic contact dermatitis, unspecified trigger [L23.9] Order(s):triamcinolone acetonide (KENALOG) 0.1 % creamApply 1 application to affected area twice daily for 10 days. Apply sparingly to area for rash/itching.Disp: 15 gRfl: 0 Prescriptions as of 10/04/2017 Sig: ALBUTEROL SULFATE HFA 90 MCG/* Inhale 2 Puffs as instructed * ATOMOXETINE 60 MG CAPSULE Take 60 mg by mouth once juan luis* TRIAMCINOLONE ACETONIDE 0.1 %* Apply 1 application to affect* DOXEPIN 10 MG CAPSULE Take 2 capsules by mouth juan luis* NAPROXEN 375 MG TABLET Take 1 tablet by mouth twice * PREGABALIN 25 MG CAPSULE Take 1 capsule by mouth three* Medication notes this encounter DOXEPIN 10 MG CAPSULE >> Kathleen Scott LPN 10/04/2017 7:48 PM >> KATHLEEN SCOTT LPN [facility] Oct 04, 2017 7:48 PM Not Taking Problem List As Of Date 10/04/2017 Noted Resolved MYALGIA AND MYOSITIS NOS [[id number]] Tobacco use [Z72.0] INVALID FOR* Depression with anxiety [F41.8] INVALID FOR* More... Closed fracture of distal end of left radius [S*INVALID FOR* Shoulder stiffness [M25.619] INVALID FOR* Radiculopathy, cervical region [M54.12] INVALID FOR* Reflex sympathetic dystrophy of left upper extr*INVALID FOR* Primary osteoarthritis of first carpometacarpal*INVALID FOR* Lateral epicondylitis of left elbow [M77.12] INVALID FOR* Cubital tunnel syndrome on left [G56.22] INVALID FOR* Pain in left wrist [M25.532] INVALID FOR* Chronic left shoulder pain [M25.512, G89.29] INVALID FOR* Pain in left elbow [M25.522] INVALID FOR* Numbness and tingling in left upper extremity [*INVALID FOR* Prescriptions ordered this encounter Disp Refills Start End TRIAMCINOLONE ACETONIDE 0.1 % TOPICA* 15 g 0 10/04/2017 10/14/2017 Route: TOPICAL Sig: Apply 1 application to affected area twice daily for 10 days. Apply sparingly to area for rash/itching. Encounter Status:Closed by TAPAN SHERIFF MD on 10/04/17 PROGRESS Observed: 09/26/2017 Status: COMPLETED Source: [facility] 4:19 PM [facility] REPOSITORY HNO ID: [id number] Author: Gracie (Pt) Cynthia Service: (none) Author Type: Physical Therapist Type: Progress Notes Filed: 09/28/2017 10:03 AM Note Text: Episode Visit Count: 24 Therapist That Will Oversee The Plan Of Care: Gracie Marie, PT DPT Start of Care Date: 02/13/17 Onset Date: 08/01/16 Plan of Care Certification Date: 09/26/17 Patient Identified by Name and Date of : Yes REHABILITATION AND SPORTS THERAPY PHYSICAL THERAPY PROGRESS REPORT PLAN OF CARE UPDATE: Assessment: David Nation exhibits improvements in pain levels, range of motion, tolerance for active use of left upper extremity. She can lift her body weight on both hands from a seated position. 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 She continues to be limited with higher levels of sensitivity in the left upper extremity. She is progressing as expected towards her therapy goals as demonstrated by: home exercise program compliance, pain levels, documented subjective information on progress and documented objective information regarding range of motion, overall function and patient reported outcome measures. She will benefit from continued skilled therapy requiring intermittent follow up by phone and in person in order to further improve her pain levels, range of motion, tolerance for activity. She recounted to me several stressful life events in her family, including the current hospitalization of her brother. I continue to believe that psychology services may be beneficial in the future due to the significant events that have occurred in David's life. Functional gains: Increased independence with HEP Increased ROM Increased strength Decreased intensity of pain Goals for Episode of Care Goals updated on 09/26/17 Amite in home exercise program. Met Patient will decrease pain rating by 2 points to meet minimal clinical important difference for numeric pain rating scale. Met Patient will increase active ROM of left shoulder to equal right to allow pt to improved performance of ADLs. Met Patient will increase active ROM of left wrist to equal right to allow pt to improved performance of ADLs. Met Perform lifting 10 lbs without pain. Partially met, able to lift 6lbs over shoulders at previous session Demonstrate improvement on functional score: Patient will improve his/her score on Quick DASH by 8% to indicate a Minimal Clinical Important Difference . Met 2 point discrimination equal left and right wrists not assessed tolerate mirror therapy with active movement, 5 minutes without exacerbation of pain previously partially met Planned Interventions, Frequency, and Duration: 1x/month, 8 weeks Total Number of Visits Planned: 26 Patient to be seen for Therapeutic exercise;Neuromuscular re-education;Manual therapy;Therapeutic activities;Self-intermediate management;Modalities;Patient/Family/Caregiver Education PLAN FOR NEXT VISIT: will follow up by phone, then return 1x/month as needed for STM, education, ROM, exercise SUBJECTIVE: Brother in the hospital with ruptured aorta. Recounts multiple stressful events in her family (sister's suicide, brother's , son's overdose). Feels that her pain is turning to hurt-different quality of pain. She does feel that her fingers continue to be somewhat numb and her arm feels heavy. . Pain Score: 2/10 Pain Location: Shoulder - Left;Neck;Elbow - Left;Wrist - Left Description: Burning Frequency: Continuous Post Treatment Pain Score: No Change OBJECTIVE MEASURES WITH LEVEL OF FUNCTION: Elbow Observations Comments: nodular tissue with mild swelling and tenderness present at proximal bicep and lateral epicondyle UE AROM R Shoulder Flex: 180 Degrees R Shoulder Horizontal ADduction: 180 Degrees L Shoulder Flex: 180 Degrees L Shoulder ABduction: 180 Degrees TREATMENT: Manual Therapy: 1: STM to left arm with focus on C5/C6 dermatome, left elbow, biceps, wrist Skilled Intervention: Manual skills to improve joint mobility, ROM, and decrease pain. Utilized anatomy knowledge of the therapist, and assessment of patient's response to intervention. Neuromuscular Re-Education: 1: PNE emotions and pain (no cards) 2: Recommendations for follow up--progress activity as tolerated, continue HEP, will follow up by phone and then in person as needed after starting her job Skilled Intervention: Patient education as noted. Emotions and Pain Patient educated on the relationship between emotions and pain, and the role that fear, catastrophization, nociception and threat play in persistent pain, by activating the bodies alarm system, resulting in hypersensitive nerves. Metaphors incorporated to foster deep learning and paradigm shift for patient. Homework: Patient encouraged to journal all the various stressors and life situations they have had to deal with since pain, and to conceptualize these as ?filling their cup. Billing: [facility]: Manual Therapy ([id number]): 1:1 time: 20 minutes (1 unit: 8-22 mins) Neuromuscular Re-education ([id number]): 1:1 time:30 minutes (2 units: 23-37 mins) Total time: 50 minutes Gracie Marie PT CNTHERAPY Observed: 09/26/2017 Status: COMPLETED Source: [facility] 4:15 PM [facility] REPOSITORY OT/PT/Speech Visit (PHYTMN) DAVID NATION ([id number]) 1960 F Date Time Provider Department 09/26/17 4:15 PM GRACIE MARIE (PT) PHYTMN Date Time Provider Department [place] 09/26/2017 4:15 PM [id number] MARIE (*PHYTMN [facility] [place] Reason for Visit: PT Progress Note [5646] PT Discharge [752] Reason For Visit History Recorded Primary Visit Diagnosis:Pain in left wrist [M25.532] Other Visit Diagnoses:Chronic left shoulder pain [M25.512, G89.29] Pain in left elbow [M25.522] Allergies As of Date: 09/26/2017 Noted Allergy Reaction PENICILLINS 09/21/2005 2 - Rash PREDNISONE 09/21/2005 1 - Mental Status Change Comments: Depression Date Reviewed: 09/20/2017 Reviewed by: Muna Miller LPN - Fully Assessed Prescriptions as of 09/26/2017 Sig: ALBUTEROL SULFATE HFA 90 MCG/* Inhale 2 Puffs as instructed * DOXEPIN 10 MG CAPSULE Take 2 capsules by mouth juan luis* NAPROXEN 375 MG TABLET Take 1 tablet by mouth twice * PREGABALIN 25 MG CAPSULE Take 1 capsule by mouth three* ATOMOXETINE 60 MG CAPSULE Take 60 mg by mouth once juan luis* Progress Notes: Gracie Marie PT 09/28/2017 10:03 AM Signed Episode Visit Count: 24 Therapist That Will Oversee The Plan Of Care: Gracie Marie, PT DPT Start of Care Date: 02/13/17 Onset Date: 08/01/16 Plan of Care Certification Date: 09/26/17 Patient Identified by Name and Date of : Yes REHABILITATION AND SPORTS THERAPY PHYSICAL THERAPY PROGRESS REPORT PLAN OF CARE UPDATE: Assessment: David Nation exhibits improvements in pain levels, range of motion, tolerance for active use of left upper extremity. She can lift her body weight on both hands from a seated position. 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 She continues to be limited with higher levels of sensitivity in the left upper extremity. She is progressing as expected towards her therapy goals as demonstrated by: home exercise program compliance, pain levels, documented subjective information on progress and documented objective information regarding range of motion, overall function and patient reported outcome measures. She will benefit from continued skilled therapy requiring intermittent follow up by phone and in person in order to further improve her pain levels, range of motion, tolerance for activity. She recounted to me several stressful life events in her family, including the current hospitalization of her brother. I continue to believe that psychology services may be beneficial in the future due to the significant events that have occurred in David's life. Functional gains: Increased independence with HEP Increased ROM Increased strength Decreased intensity of pain Goals for Episode of Care Goals updated on 09/26/17 Amite in home exercise program. Met Patient will decrease pain rating by 2 points to meet minimal clinical important difference for numeric pain rating scale. Met Patient will increase active ROM of left shoulder to equal right to allow pt to improved performance of ADLs. Met Patient will increase active ROM of left wrist to equal right to allow pt to improved performance of ADLs. Met Perform lifting 10 lbs without pain. Partially met, able to lift 6lbs over shoulders at previous session Demonstrate improvement on functional score: Patient will improve his/her score on Quick DASH by 8% to indicate a Minimal Clinical Important Difference . Met 2 point discrimination equal left and right wrists not assessed tolerate mirror therapy with active movement, 5 minutes without exacerbation of pain previously partially met Planned Interventions, Frequency, and Duration: 1x/month, 8 weeks Total Number of Visits Planned: 26 Patient to be seen for Therapeutic exercise;Neuromuscular re-education;Manual therapy;Therapeutic activities;Self-intermediate management;Modalities;Patient/Family/Caregiver Education PLAN FOR NEXT VISIT: will follow up by phone, then return 1x/month as needed for STM, education, ROM, exercise SUBJECTIVE: Brother in the hospital with ruptured aorta. Recounts multiple stressful events in her family (sister's suicide, brother's , son's overdose). Feels that her pain is turning to hurt-different quality of pain. She does feel that her fingers continue to be somewhat numb and her arm feels heavy. . Pain Score: 2/10 Pain Location: Shoulder - Left;Neck;Elbow - Left;Wrist - Left Description: Burning Frequency: Continuous Post Treatment Pain Score: No Change OBJECTIVE MEASURES WITH LEVEL OF FUNCTION: Elbow Observations Comments: nodular tissue with mild swelling and tenderness present at proximal bicep and lateral epicondyle UE AROM R Shoulder Flex: 180 Degrees R Shoulder Horizontal ADduction: 180 Degrees L Shoulder Flex: 180 Degrees L Shoulder ABduction: 180 Degrees TREATMENT: Manual Therapy: 1: STM to left arm with focus on C5/C6 dermatome, left elbow, biceps, wrist Skilled Intervention: Manual skills to improve joint mobility, ROM, and decrease pain. Utilized anatomy knowledge of the therapist, and assessment of patient's response to intervention. Neuromuscular Re-Education: 1: PNE emotions and pain (no cards) 2: Recommendations for follow up--progress activity as tolerated, continue HEP, will follow up by phone and then in person as needed after starting her job Skilled Intervention: Patient education as noted. Emotions and Pain Patient educated on the relationship between emotions and pain, and the role that fear, catastrophization, nociception and threat play in persistent pain, by activating the bodies alarm system, resulting in hypersensitive nerves. Metaphors incorporated to foster deep learning and paradigm shift for patient. Homework: Patient encouraged to journal all the various stressors and life situations they have had to deal with since pain, and to conceptualize these as ?filling their cup. Billing: [facility]: Manual Therapy ([id number]): 1:1 time: 20 minutes (1 unit: 8-22 mins) Neuromuscular Re-education ([id number]): 1:1 time:30 minutes (2 units: 23-37 mins) Total time: 50 minutes Gracie Marie, SIOBHAN Marie PT 01/21/2018 3:43 PM Signed [facility] REHABILITATION AND SPORTS THERAPY PHYSICAL THERAPY DISCONTINUANCE OF CARE Plan of Care Period: Start of Care Date: 02/13/17 Last Visit Date: 09/28/17 Therapy Program: The following is a summary of the interventions provided for this episode of care; Therapeutic exercise, Neuromuscular re-education, Manual therapy and Patient/Family/Caregiver Education Assessment: The following is the goal status: Goals for Episode of Care Goals updated on 09/26/17 Amite in home exercise program. Met Patient will decrease pain rating by 2 points to meet minimal clinical important difference for numeric pain rating scale. Met Patient will increase active ROM of left shoulder to equal right to allow pt to improved performance of ADLs. Met Patient will increase active ROM of left wrist to equal right to allow pt to improved performance of ADLs. Met Perform lifting 10 lbs without pain. Partially met, able to lift 6lbs over shoulders at previous session Demonstrate improvement on functional score: Patient will improve his/her score on Quick DASH by 8% to indicate a Minimal Clinical Important Difference . Met 2 point discrimination equal left and right wrists not assessed tolerate mirror therapy with active movement, 5 minutes without exacerbation of pain previously partially met Based on the most recent progress report, patient was progressing as expected toward functional goals based on home exercise program compliance, pain levels, documented subjective information on progress, documented objective information regarding ADL's, range of motion and overall function and appointment compliance. Reason for Discontinuation of Care: Patient has not returned to therapy or scheduled additional follow-up appointments. Gracie Marie, PT PROGRESS Observed: 09/20/2017 Status: COMPLETED Source: [place] 9:22 AM [facility] REPOSITORY HNO ID: [id number] Author: Emmanuel Moss Service: (none) Author Type: Nurse Practitioner Type: Progress Notes Filed: 09/20/2017 10:23 AM Note Text: Subjective HPI Patient is a 56 year old female here today for a 3 day history of chest congestion. States slight nasal congestion. States she is wheezing and coughing. Denies fever or muscle aches. Has no tried OTC medication. Nothing makes it better or worse. No other concerns at this time. Review of Systems Constitutional: Negative for chills, fever and malaise/fatigue. HENT: Positive for congestion. Negative for ear pain and sore throat. Respiratory: Positive for cough. Negative for sputum production, shortness of breath and wheezing. Cardiovascular: Negative. Gastrointestinal: Negative for nausea and vomiting. Musculoskeletal: Negative for myalgias. Neurological: Negative for headaches. Endo/Heme/Allergies: Negative for environmental allergies. All other systems reviewed and are negative. 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 naproxen (NAPROSYN) 375 mg tablet Take 1 tablet by mouth twice daily with meals. pregabalin (LYRICA) 25 mg capsule Take 1 capsule by mouth three times daily. atomoxetine (STRATTERA) 60 mg capsule Take 60 mg by mouth once daily. FAMILY HISTORY Problem Relation Age of Onset - Cancer Mother - Cancer Niece (sister's daughter) - Psychiatry Sister suicide - Psychiatry Son Opoid dependency - Ischemic Heart Disease Brother 60 [place], heavy smoker, Etoh Social History Substance Use Topics - Smoking status: Former Smoker Types: Cigarettes - Smokeless tobacco: Never Used - Alcohol use No BP 128/80 Pulse 85 Temp 36.8 ?C (98.2 ?F) (Tympanic) Resp 18 Wt 44 kg (97 lb) LMP 02/11/2006 SpO2 98% BMI 16.65 kg/m2 Objective Physical Exam Constitutional: She is well-developed, well-nourished, and in no distress. Vital signs are normal. Mildly ill. HENT: Head: Normocephalic and atraumatic. Right Ear: Tympanic membrane, external ear and ear canal normal. Left Ear: Tympanic membrane, external ear and ear canal normal. Nose: Mucosal edema present. No rhinorrhea. Right sinus exhibits no maxillary sinus tenderness and no frontal sinus tenderness. Left sinus exhibits no maxillary sinus tenderness and no frontal sinus tenderness. Mouth/Throat: Uvula is midline, oropharynx is clear and moist and mucous membranes are normal. No oropharyngeal exudate, posterior oropharyngeal edema or posterior oropharyngeal erythema. Neck: Neck supple. Cardiovascular: Normal rate, regular rhythm and normal heart sounds. Pulmonary/Chest: Effort normal. She has wheezes (fine bilateral). She has no rales. Lymphadenopathy: Head (right side): No submental, no submandibular and no tonsillar adenopathy present. Head (left side): No submental, no submandibular and no tonsillar adenopathy present. She has no cervical adenopathy. Submandibular fullness. Neurological: She is alert. Skin: Skin is warm and dry. Nursing note and vitals reviewed. ASSESSMENT/PLAN: 1. Viral URI with cough - ICD9: 465.9, ICD10: J06.9, B97.89 - Discussed viral etiology and rationale for treatment. - Symptomatic treatment with prn analgesia - Supportive care with fluids and rest - The patient may also use OTC cough and cold meds such as Mucinex as needed and warm salt water gargles, throat lozenges and/or OTC throat spray as needed. - Follow up in 3-5 days if symptoms persist or sooner if worsening of symptoms - ALBUTEROL SULFATE HFA 90 MCG/ACTUATION AEROSOL INHALER Prescription instructions reviewed with patient as applicable. Patient advised if symptoms do not improve or if symptoms worsen sooner, to contact their primary care physician. Potential red flag symptoms discussed with the patient. Reviewed appropriate action plan to take if red flag symptoms occur. Patient agreeable to treatment plan. Emmanuel Moss CNP CNOV Observed: 09/20/2017 Status: COMPLETED Source: [place] 9:15 AM [facility] REPOSITORY [facility] DAVID NATION ([id number]) 1960 F Date Time Provider Department 09/20/17 9:15 AM EMMANUEL MOSS ([facility]) [facility] During your visit today, we recorded the following information about you: Temperature Pulse Respiration Blood pressure 98.2 degrees 85/minute 18/minute 128/80 Weight 44 kg Emmanuel Moss CNP 09/20/2017 10:23 AM Signed Subjective HPI Patient is a 56 year old female here today for a 3 day history of chest congestion. States slight nasal congestion. States she is wheezing and coughing. Denies fever or muscle aches. Has no tried OTC medication. Nothing makes it better or worse. No other concerns at this time. Review of Systems Constitutional: Negative for chills, fever and malaise/fatigue. HENT: Positive for congestion. Negative for ear pain and sore throat. Respiratory: Positive for cough. Negative for sputum production, shortness of breath and wheezing. Cardiovascular: Negative. Gastrointestinal: Negative for nausea and vomiting. Musculoskeletal: Negative for myalgias. Neurological: Negative for headaches. Endo/Heme/Allergies: Negative for environmental allergies. All other systems reviewed and are negative. 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 naproxen (NAPROSYN) 375 mg tablet Take 1 tablet by mouth twice daily with meals. pregabalin (LYRICA) 25 mg capsule Take 1 capsule by mouth three times daily. atomoxetine (STRATTERA) 60 mg capsule Take 60 mg by mouth once daily. FAMILY HISTORY Problem Relation Age of Onset - Cancer Mother - Cancer Niece (sister's daughter) - Psychiatry Sister suicide - Psychiatry Son Opoid dependency - Ischemic Heart Disease Brother 60 [place], heavy smoker, Etoh Social History Substance Use Topics - Smoking status: Former Smoker Types: Cigarettes - Smokeless tobacco: Never Used - Alcohol use No BP 128/80 Pulse 85 Temp 36.8 ?C (98.2 ?F) (Tympanic) Resp 18 Wt 44 kg (97 lb) LMP 02/11/2006 SpO2 98% BMI 16.65 kg/m2 Objective Physical Exam Constitutional: She is well-developed, well-nourished, and in no distress. Vital signs are normal. Mildly ill. HENT: Head: Normocephalic and atraumatic. Right Ear: Tympanic membrane, external ear and ear canal normal. Left Ear: Tympanic membrane, external ear and ear canal normal. Nose: Mucosal edema present. No rhinorrhea. Right sinus exhibits no maxillary sinus tenderness and no frontal sinus tenderness. Left sinus exhibits no maxillary sinus tenderness and no frontal sinus tenderness. Mouth/Throat: Uvula is midline, oropharynx is clear and moist and mucous membranes are normal. No oropharyngeal exudate, posterior oropharyngeal edema or posterior oropharyngeal erythema. Neck: Neck supple. Cardiovascular: Normal rate, regular rhythm and normal heart sounds. Pulmonary/Chest: Effort normal. She has wheezes (fine bilateral). She has no rales. Lymphadenopathy: Head (right side): No submental, no submandibular and no tonsillar adenopathy present. Head (left side): No submental, no submandibular and no tonsillar adenopathy present. She has no cervical adenopathy. Submandibular fullness. Neurological: She is alert. Skin: Skin is warm and dry. Nursing note and vitals reviewed. ASSESSMENT/PLAN: 1. Viral URI with cough - ICD9: 465.9, ICD10: J06.9, B97.89 - Discussed viral etiology and rationale for treatment. - Symptomatic treatment with prn analgesia - Supportive care with fluids and rest - The patient may also use OTC cough and cold meds such as Mucinex as needed and warm salt water gargles, throat lozenges and/or OTC throat spray as needed. - Follow up in 3-5 days if symptoms persist or sooner if worsening of symptoms - ALBUTEROL SULFATE HFA 90 MCG/ACTUATION AEROSOL INHALER Prescription instructions reviewed with patient as applicable. Patient advised if symptoms do not improve or if symptoms worsen sooner, to contact their primary care physician. Potential red flag symptoms discussed with the patient. Reviewed appropriate action plan to take if red flag symptoms occur. Patient agreeable to treatment plan. Emmanuel Moss CNP Referring Provider: SELF [[id number]] Allergies As of Date: 09/20/2017 Noted Allergy Reaction PENICILLINS 09/21/2005 2 - Rash PREDNISONE 09/21/2005 1 - Mental Status Change Comments: Depression Date Reviewed: 09/20/2017 Reviewed by: Muna Miller LPN - Fully Assessed Reason for Visit: Cough [28] Cmt: with congestion x 3 day Primary Visit Diagnosis:Viral URI with cough [J06.9, B97.89] Order(s):albuterol HFA (PROAIR HFA) 90 mcg/actuation inhalerInhale 2 Puffs as instructed every 4 hours as needed.Disp: 1 InhalerRfl: 0 Prescriptions as of 09/20/2017 Sig: ALBUTEROL SULFATE HFA 90 MCG/* Inhale 2 Puffs as instructed * DOXEPIN 10 MG CAPSULE Take 2 capsules by mouth juan luis* NAPROXEN 375 MG TABLET Take 1 tablet by mouth twice * PREGABALIN 25 MG CAPSULE Take 1 capsule by mouth three* ATOMOXETINE 60 MG CAPSULE Take 60 mg by mouth once juan luis* Problem List As Of Date 09/20/2017 Noted Resolved MYALGIA AND MYOSITIS NOS [KAL1404] Tobacco use [Z72.0] INVALID FOR* Depression with anxiety [F41.8] INVALID FOR* More... Closed fracture of distal end of left radius [S*INVALID FOR* Shoulder stiffness [M25.619] INVALID FOR* Radiculopathy, cervical region [M54.12] INVALID FOR* Reflex sympathetic dystrophy of left upper extr*INVALID FOR* Primary osteoarthritis of first carpometacarpal*INVALID FOR* Lateral epicondylitis of left elbow [M77.12] INVALID FOR* Cubital tunnel syndrome on left [G56.22] INVALID FOR* Pain in left wrist [M25.532] INVALID FOR* Chronic left shoulder pain [M25.512, G89.29] INVALID FOR* Pain in left elbow [M25.522] INVALID FOR* Numbness and tingling in left upper extremity [*INVALID FOR* Prescriptions ordered this encounter Disp Refills Start End ALBUTEROL SULFATE HFA 90 MCG/ACTUATI* 1 In* 0 09/20/2017 Route: INHALATION Sig: Inhale 2 Puffs as instructed every 4 hours as needed. Encounter Status:Closed by EMMANUEL MOSS CNP on 09/20/17 CNOV Observed: 09/14/2017 Status: COMPLETED Source: [place] 1:25 PM [facility] REPOSITORY Office Visit ([facility]) DAVID NATION ([id number]) 1960 F Date Time Provider Department 09/14/17 1:25 PM DANIEL KEENE During your visit today, we recorded the following information about you: Pulse Respiration Blood pressure Weight 85/minute 16/minute 122/73 45.4 kg Height 1.626 m Daniel Keene MD 09/14/2017 3:11 PM Signed SUBJECTIVE: David Nation presents to [facility] Pain Management Department for a follow-up appointment for L shoulder and L elbow pain. Since the last visit, David Nation states the pain has been improving. Current pain intensity is 3 on a scale of 0 -10. Currently pt is only on doxepin qHS. Pt has not been taking naproxen for pain and has been off lyrica for some time now. Pt continues to participate in PT. She states she still has occasional bad days but overall is improving significantly. Pain Location: left arm Duration: 1.3 years. Pain character: stinging Exacerbating factors: movement Alleviating factors: none Pain Medications: - Opioids: denies - NSAIDs: denies - Anti-Depressants: atomoxetine 60mg daily - Anti-Convulsants: denies - Others: doxepin 10mg qHS At the last visit (04/13/17), plan was to wean use of naproxen and continue PT. Opioid agreement: No OARRS report: Reviewed Pain medications reviewed: Yes Pain Procedures: none Physical Therapy/Home Exercise: Yes REVIEW OF SYSTEMS: GENERAL: No weight loss, malaise or fevers. HEENT: Negative for frequent or significant headaches. NECK: Negative for lumps, goiter, pain and significant neck swelling. RESPIRATORY: Negative for cough, wheezing or shortness of breath. CARDIOVASCULAR: Negative for chest pain, leg swelling or palpitations. GI: Negative for abdominal discomfort, blood in stools or black stools or change in bowel habits. MUSCULOSKELETAL: See HPI SKIN: Negative for lesions, rash, and itching. PSYCH: +ADHD HEMATOLOGY/LYMPHOLOGY: Negative for prolonged bleeding, bruising easily or swollen nodes. NEURO: No history of headaches, syncope, paralysis, seizures or tremors. All other reviewed and negative other than HPI. Past Medical History: PAST MEDICAL HISTORY Diagnosis Date - Attention deficit disorder without mention of hyperactivity Adult - Excessive or frequent menstruation - Myalgia and myositis, unspecified Past Surgical History: PAST SURGICAL HISTORY Procedure Laterality Date - APPENDECTOMY - LIGATE FALLOPIAN TUBE Tubal ligation Family History: FAMILY HISTORY Problem Relation Age of Onset - Cancer Mother - Cancer Niece (sister's daughter) - Psychiatry Sister suicide - Psychiatry Son Opoid dependency - Ischemic Heart Disease Brother 60 [place], heavy smoker, Etoh Social History: Social History Marital status: Spouse name: Hayder Years of education: Number of children: 1 Occupational History 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 PHYSICAL EXAMINATION: General appearance: Well appearing, in no acute distress, alert. Psych: Mood and affect appropriate. Skin: Skin color, texture, turgor normal, no rashes or lesions. Head/face: Atraumatic, normocephalic. Neck: No pain to palpation over the cervical paraspinous muscles. No pain with neck flexion, extension, or lateral flexion. Cor: no edema Pulm: nonlabored GI: Abdomen soft and non-tender. Back: No pain to palpation over the spine. Normal range of motion without pain reproduction. Extremities: Slight TTP in anterior and posterior L shoulder and tender to palpation to of her left lower aspect of her left upper extremity. Musculoskeletal: Bilateral upper and lower extremity strength is normal and symmetric. Neuro: Bilateral upper and lower extremity coordination are physiologic and symmetric. L arm sensation in ulnar distribution improving per pt Gait: normal. ASSESSMENT: 56 year old female with PMHx significant for cervical spondylosis and tobacco use w/traumatic fall in 07/2016 leading to diffuse L upper extremity pain presents for f/u appointment for her L shoulder and elbow pain. Patient has responded to medications and physical therapy. Currently pt is doing well and states L arm pain has improved. She is doing very well overall and is pleased with her results. She does still have some painful days for which we recommended continuing Naprosyn as needed. We discussed using this medication on her painful days which is very reasonable. She has been recently started doxepin from an outside physician which she took for months and then recently started approximately 1 week ago. We discussed this medication would also be helpful for pain control and she may benefit from doubling her dose from 10 mg to 20 mg at night. Given that we did not initially prescribed this medication we encouraged her to let her prescribing physician know that we will be sending her new increased prescription. She is continuing to overall improved in should her pain symptoms remain controlled she can follow up as needed. Should she require further care and more than happy to see her in the near future. Furthermore we briefly discussed interventional treatment options; however given that she is continuing to improve do not believe she currently would benefit from an interventional procedure which she is agreeable to. (M25.522) Pain in left elbow (primary encounter diagnosis) (G56.22) Cubital tunnel syndrome on left (M25.532) Pain in left wrist PLAN: 1) Recommended the patient to take naproxen prn pain. 2) Double doxepin to 20mg qHS and notified pt to let prescribing physician know of the change. 3) RTC prn. 4) Counseled patient regarding the importance of continuation with tobacco cessation. The above plan and management options were discussed at length with patient. Patient is in agreement with the above and verbalized understanding. Desmond Hines MD September 14, 2017 Pain Management Staff Note: I have reviewed the clinical details obtained and documented and I have participated in the cuenca components, including pertinent aspects of the history and physical examination. I have discussed the case and management of the patient's care with the trainee/PA and the patient. I essentially agree with the assessment and plan as documented above. Edits in the note were made where indicated. Daniel Keene MD Staff Physician Pain Management September 14, 2017 Referring Provider: DANIEL KEENE [[id number]] Allergies As of Date: 09/14/2017 Noted Allergy Reaction PENICILLINS 09/21/2005 2 - Rash PREDNISONE 09/21/2005 1 - Mental Status Change Comments: Depression Date Reviewed: 09/14/2017 Reviewed by: Radha Joseph LPN - Fully Assessed Reason for Visit: Follow Up [171] Medication Update [1676] Primary Visit Diagnosis:Pain in left elbow [M25.522] Other Visit Diagnoses:Cubital tunnel syndrome on left [G56.22] Pain in left wrist [M25.532] Order(s):doxepin capsule 10 mgTake 2 capsules by mouth daily at bedtime.Disp: 60 capsuleRfl: 1 Prescriptions as of 09/14/2017 Sig: ATOMOXETINE 60 MG CAPSULE Take 60 mg by mouth once juan luis* DOXEPIN 10 MG CAPSULE Take 2 capsules by mouth juan luis* NAPROXEN 375 MG TABLET Take 1 tablet by mouth twice * PREGABALIN 25 MG CAPSULE Take 1 capsule by mouth three* Medication notes this encounter NAPROXEN 375 MG TABLET >> Radha Joseph LPN 09/14/2017 12:53 PM >> RADHA JOSEPH LPN SunSep 14, 2017 12:53 PM stopped Problem List As Of Date 09/14/2017 Noted Resolved MYALGIA AND MYOSITIS NOS [[id number]] Tobacco use [Z72.0] INVALID FOR* Depression with anxiety [F41.8] INVALID FOR* More... Closed fracture of distal end of left radius [S*INVALID FOR* Shoulder stiffness [M25.619] INVALID FOR* Radiculopathy, cervical region [M54.12] INVALID FOR* Reflex sympathetic dystrophy of left upper extr*INVALID FOR* Primary osteoarthritis of first carpometacarpal*INVALID FOR* Lateral epicondylitis of left elbow [M77.12] INVALID FOR* Cubital tunnel syndrome on left [G56.22] INVALID FOR* Pain in left wrist [M25.532] INVALID FOR* Chronic left shoulder pain [M25.512, G89.29] INVALID FOR* Pain in left elbow [M25.522] INVALID FOR* Numbness and tingling in left upper extremity [*INVALID FOR* Prescriptions ordered this encounter Disp Refills Start End DOXEPIN 10 MG CAPSULE 60 c* 1 09/14/2017 12/13/2017 Route: ORAL Sig: Take 2 capsules by mouth daily at bedtime. Medications Discontinued During This Encounter doxepin capsule 10 mg 09/14/2017 Class: Historical Med Route: ORAL Sig: Take 10 mg by mouth daily at bedtime. Disc: Reason for discontinue is not on file. Disposition: Return if symptoms worsen or fail to improve. Follow-up and Disposition History Recorded Encounter Status:Closed by DANIEL KEENE MD on 09/14/17 PROGRESS Observed: 09/14/2017 Status: COMPLETED Source: [place] 1:13 PM [facility] REPOSITORY HNO ID: [id number] Author: Daniel Keene Service: (none) Author Type: Physician Type: Progress Notes Filed: 09/14/2017 3:11 PM Note Text: SUBJECTIVE: David Nation presents to [facility] Pain Management Department for a follow-up appointment for L shoulder and L elbow pain. Since the last visit, David Nation states the pain has been improving. Current pain intensity is 3 on a scale of 0 -10. Currently pt is only on doxepin qHS. Pt has not been taking naproxen for pain and has been off lyrica for some time now. Pt continues to participate in PT. She states she still has occasional bad days but overall is improving significantly. Pain Location: left arm Duration: 1.3 years. Pain character: stinging Exacerbating factors: movement Alleviating factors: none Pain Medications: - Opioids: denies - NSAIDs: denies - Anti-Depressants: atomoxetine 60mg daily - Anti-Convulsants: denies - Others: doxepin 10mg qHS At the last visit (04/13/17), plan was to wean use of naproxen and continue PT. Opioid agreement: No OARRS report: Reviewed Pain medications reviewed: Yes Pain Procedures: none Physical Therapy/Home Exercise: Yes REVIEW OF SYSTEMS: GENERAL: No weight loss, malaise or fevers. HEENT: Negative for frequent or significant headaches. NECK: Negative for lumps, goiter, pain and significant neck swelling. RESPIRATORY: Negative for cough, wheezing or shortness of breath. CARDIOVASCULAR: Negative for chest pain, leg swelling or palpitations. GI: Negative for abdominal discomfort, blood in stools or black stools or change in bowel habits. MUSCULOSKELETAL: See HPI SKIN: Negative for lesions, rash, and itching. PSYCH: +ADHD HEMATOLOGY/LYMPHOLOGY: Negative for prolonged bleeding, bruising easily or swollen nodes. NEURO: No history of headaches, syncope, paralysis, seizures or tremors. All other reviewed and negative other than HPI. Past Medical History: PAST MEDICAL HISTORY Diagnosis Date - Attention deficit disorder without mention of hyperactivity Adult - Excessive or frequent menstruation - Myalgia and myositis, unspecified Past Surgical History: PAST SURGICAL HISTORY Procedure Laterality Date - APPENDECTOMY - LIGATE FALLOPIAN TUBE Tubal ligation Family History: FAMILY HISTORY Problem Relation Age of Onset - Cancer Mother - Cancer Niece (sister's daughter) - Psychiatry Sister suicide - Psychiatry Son Opoid dependency - Ischemic Heart Disease Brother 60 [place], heavy smoker, Etoh Social History: Social History Marital status: Spouse name: Hayder Years of education: Number of children: 1 Occupational History 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 PHYSICAL EXAMINATION: General appearance: Well appearing, in no acute distress, alert. Psych: Mood and affect appropriate. Skin: Skin color, texture, turgor normal, no rashes or lesions. Head/face: Atraumatic, normocephalic. Neck: No pain to palpation over the cervical paraspinous muscles. No pain with neck flexion, extension, or lateral flexion. Cor: no edema Pulm: nonlabored GI: Abdomen soft and non-tender. Back: No pain to palpation over the spine. Normal range of motion without pain reproduction. Extremities: Slight TTP in anterior and posterior L shoulder and tender to palpation to of her left lower aspect of her left upper extremity. Musculoskeletal: Bilateral upper and lower extremity strength is normal and symmetric. Neuro: Bilateral upper and lower extremity coordination are physiologic and symmetric. L arm sensation in ulnar distribution improving per pt Gait: normal. ASSESSMENT: 56 year old female with PMHx significant for cervical spondylosis and tobacco use w/traumatic fall in 07/2016 leading to diffuse L upper extremity pain presents for f/u appointment for her L shoulder and elbow pain. Patient has responded to medications and physical therapy. Currently pt is doing well and states L arm pain has improved. She is doing very well overall and is pleased with her results. She does still have some painful days for which we recommended continuing Naprosyn as needed. We discussed using this medication on her painful days which is very reasonable. She has been recently started doxepin from an outside physician which she took for months and then recently started approximately 1 week ago. We discussed this medication would also be helpful for pain control and she may benefit from doubling her dose from 10 mg to 20 mg at night. Given that we did not initially prescribed this medication we encouraged her to let her prescribing physician know that we will be sending her new increased prescription. She is continuing to overall improved in should her pain symptoms remain controlled she can follow up as needed. Should she require further care and more than happy to see her in the near future. Furthermore we briefly discussed interventional treatment options; however given that she is continuing to improve do not believe she currently would benefit from an interventional procedure which she is agreeable to. (M25.522) Pain in left elbow (primary encounter diagnosis) (G56.22) Cubital tunnel syndrome on left (M25.532) Pain in left wrist PLAN: 1) Recommended the patient to take naproxen prn pain. 2) Double doxepin to 20mg qHS and notified pt to let prescribing physician know of the change. 3) RTC prn. 4) Counseled patient regarding the importance of continuation with tobacco cessation. The above plan and management options were discussed at length with patient. Patient is in agreement with the above and verbalized understanding. Desmond Hines MD September 14, 2017 Pain Management Staff Note: I have reviewed the clinical details obtained and documented and I have participated in the cuenca components, including pertinent aspects of the history and physical examination. I have discussed the case and management of the patient's care with the trainee/PA and the patient. I essentially agree with the assessment and plan as documented above. Edits in the note were made where indicated. Daniel Keene MD Staff Physician Pain Management September 14, 2017 PROGRESS Observed: 09/12/2017 Status: COMPLETED Source: [place] 9:10 AM [facility] [place] REPOSITORY O ID: [id number] Author: Gracie (Pt) Cynthia Service: (none) Author Type: Physical Therapist Type: Progress Notes Filed: 09/12/2017 2:14 PM Note Text: Episode Visit Count: 23 Therapist That Will Oversee The Plan Of Care: Gracie Marie, PT DPT Start of Care Date: 02/13/17 Onset Date: 08/01/16 Plan of Care Certification Date: 07/18/17 [facility]AB[facility]ITATION AND SPORTS THERAPY PHYSICAL THERAPY TREATMENT NOTE ASSESSMENT: David Nation demonstrated improvements in pain levels and overall functional status. She reports that she is significantly better and is planning to start work again in 2 weeks. Her two point discrimination has improved to be much more symmetric left to right on dorsum and palmar surface of hand and wrist. Shoulder range of motion improving as well with decreased pain. Improved tolerance for mirror therapy as well today, although still with slight increase in pain after activities performed today/ The patient will continue to benefit from continued skilled physical therapy for left upper extremity symptoms. PLAN FOR NEXT VISIT: progress note, continue STM, progress active motion as tolerated, GMI, exercise SUBJECTIVE: Feels that her elbow continues to get better. Yesterday was one of the best days she had in a while, today is also good. Left fingers are still feeling swollen. She got her job and will start in 2 weeks! Pain Score: 2/10 Pain Location: Shoulder - Left;Elbow - Left Description: Burning (stinging) Frequency: Continuous Post Treatment Pain Score: 3/10 Post Treatment Pain Description: Aching OBJECTIVE MEASURES WITH LEVEL OF FUNCTION: Sensation - Upper Extremity UE Light Touch Sensation: (2 pt discrimination 0.5-1cm bilat hand and wrist) UE AROM R Shoulder Flex: 180 Degrees R Shoulder Horizontal ADduction: 180 Degrees R Wrist Extension: 70 Degrees R Wrist Flexion: 80 Degrees L Wrist Extension: 70 Degrees L Wrist Flexion: 80 Degrees TREATMENT: Therapeutic Exercise: 1: shoulder flexion and abduction wall slides x10 each 2: median nerve glides in prayer position, progressed to increase stretch 3: scapular retraction x10 reps Skilled Intervention: Patient was educated in proper exercise technique and purpose for exercises. Skilled judgment was provided in selection of appropriate interventions. Correct performance of therapeutic exercises was facilitated with verbal and tactile cuing. Manual Therapy: 1: STM to left arm with focus on C5/C6 dermatome, left elbow, biceps Skilled Intervention: Manual skills to improve joint mobility, ROM, and decrease pain. Utilized anatomy knowledge of the therapist, and assessment of patient's response to intervention. Neuromuscular Re-Education: 1: 2 point discrimination 2: mirror therapy: progressing from unilateral motion to bilateral as tolerated 3: fist 4: thumb abduction 5: finger abduction 6: pronation/supination 7: ulnar deviation 8: elbow flexion/extension 9: shoulder flexion Skilled Intervention: Education in proprioceptive/kinesthetic awareness during Mirror therapy. Billing: [facility]: Therapeutic Exercise ([id number]): 1:1 time: 10 minutes (1 unit: 8-22 mins) Manual Therapy ([id number]): 1:1 time: 25 minutes (2 units: 23- 37 mins) Neuromuscular Re-education ([id number]): 1:1 time:20 minutes (1 unit: 8-22 mins) Total time: 55 minutes Gracie Marie PT CNTHERAPY Observed: 09/12/2017 Status: COMPLETED Source: [place] 9:00 AM [facility] REPOSITORY OT/PT/Speech Visit (PHYTMN) DAVID NATION ([id number]) 1960 F Date Time Provider Department 09/12/17 9:00 AM GRACIE MARIE (PT) PHYTMN Date Time Provider Department Center 09/12/2017 9:00 AM [id number] MARIE (*PHYTMN Oscar Busby Reason for Visit: Physical Therapy [503] Reason For Visit History Recorded Primary Visit Diagnosis:Pain in left wrist [M25.532] Other Visit Diagnoses:Chronic left shoulder pain [M25.512, G89.29] Pain in left elbow [M25.522] Allergies As of Date: 09/12/2017 Noted Allergy Reaction PENICILLINS 09/21/2005 2 - Rash PREDNISONE 09/21/2005 1 - Mental Status Change Comments: Depression Date Reviewed: 04/25/2017 Reviewed by: Donna Walsh - Fully Assessed Prescriptions as of 09/12/2017 Sig: NAPROXEN 375 MG TABLET Take 1 tablet by mouth twice * PREGABALIN 25 MG CAPSULE Take 1 capsule by mouth three* DOXEPIN 10 MG CAPSULE Take 10 mg by mouth daily at * ATOMOXETINE 60 MG CAPSULE Take 60 mg by mouth once juan luis* Progress Notes: Gracie Marie, PT 09/12/2017 2:14 PM Signed Episode Visit Count: 23 Therapist That Will Oversee The Plan Of Care: Gracie Marei, PT DPT Start of Care Date: 02/13/17 Onset Date: 08/01/16 Plan of Care Certification Date: 07/18/17 REHABILITATION AND SPORTS THERAPY PHYSICAL THERAPY TREATMENT NOTE ASSESSMENT: David Nation demonstrated improvements in pain levels and overall functional status. She reports that she is significantly better and is planning to start work again in 2 weeks. Her two point discrimination has improved to be much more symmetric left to right on dorsum and palmar surface of hand and wrist. Shoulder range of motion improving as well with decreased pain. Improved tolerance for mirror therapy as well today, although still with slight increase in pain after activities performed today/ The patient will continue to benefit from continued skilled physical therapy for left upper extremity symptoms. PLAN FOR NEXT VISIT: progress note, continue STM, progress active motion as tolerated, GMI, exercise SUBJECTIVE: Feels that her elbow continues to get better. Yesterday was one of the best days she had in a while, today is also good. Left fingers are still feeling swollen. She got her job and will start in 2 weeks! Pain Score: 2/10 Pain Location: Shoulder - Left;Elbow - Left Description: Burning (stinging) Frequency: Continuous Post Treatment Pain Score: 3/10 Post Treatment Pain Description: Aching OBJECTIVE MEASURES WITH LEVEL OF FUNCTION: Sensation - Upper Extremity UE Light Touch Sensation: (2 pt discrimination 0.5-1cm bilat hand and wrist) UE AROM R Shoulder Flex: 180 Degrees R Shoulder Horizontal ADduction: 180 Degrees R Wrist Extension: 70 Degrees R Wrist Flexion: 80 Degrees L Wrist Extension: 70 Degrees L Wrist Flexion: 80 Degrees TREATMENT: Therapeutic Exercise: 1: shoulder flexion and abduction wall slides x10 each 2: median nerve glides in prayer position, progressed to increase stretch 3: scapular retraction x10 reps Skilled Intervention: Patient was educated in proper exercise technique and purpose for exercises. Skilled judgment was provided in selection of appropriate interventions. Correct performance of therapeutic exercises was facilitated with verbal and tactile cuing. Manual Therapy: 1: STM to left arm with focus on C5/C6 dermatome, left elbow, biceps Skilled Intervention: Manual skills to improve joint mobility, ROM, and decrease pain. Utilized anatomy knowledge of the therapist, and assessment of patient's response to intervention. Neuromuscular Re-Education: 1: 2 point discrimination 2: mirror therapy: progressing from unilateral motion to bilateral as tolerated 3: fist 4: thumb abduction 5: finger abduction 6: pronation/supination 7: ulnar deviation 8: elbow flexion/extension 9: shoulder flexion Skilled Intervention: Education in proprioceptive/kinesthetic awareness during Mirror therapy. Billing: [facility]: Therapeutic Exercise ([id number]): 1:1 time: 10 minutes (1 unit: 8-22 mins) Manual Therapy ([id number]): 1:1 time: 25 minutes (2 units: 23- 37 mins) Neuromuscular Re-education ([id number]): 1:1 time:20 minutes (1 unit: 8-22 mins) Total time: 55 minutes Gracie Marie PT PROGRESS Observed: 09/07/2017 Status: COMPLETED Source: [place] 3:24 PM [facility] REPOSITORY O ID: [id number] Author: Gracie Marie Service: (none) Author Type: Physical Therapist Type: Progress Notes Filed: 09/07/2017 3:30 PM Note Text: Episode Visit Count: 22 Therapist That Will Oversee The Plan Of Care: Gracie Marie PT DPUmm Start of Care Date: 02/13/17 Onset Date: 08/01/16 Plan of Care Certification Date: 07/18/17 REHABILITATION AND SPORTS THERAPY PHYSICAL THERAPY TREATMENT NOTE ASSESSMENT: David Nation demonstrated some swelling and granular tissue in C5/C6 dermatome pathway on left arm. Highly sensitive to touch, but decreased swelling noted with soft tissue mobilization to the affected area. Continue to recommend psychology and/or CPRP. The patient will continue to benefit from continued skilled physical therapy for graded motor imagery, progressive strengthening, soft tissue mobilization. Recommend progressive increase in activity prior to starting work. PLAN FOR NEXT VISIT: continue STM, progress active motion as tolerated, GMI, exercise SUBJECTIVE: This week is going fine. Still with achy, burning, soreness in the left arm Pain Score: 4/10 Pain Location: Shoulder - Left;Wrist - Left;Elbow - Left Description: Burning Frequency: Continuous OBJECTIVE MEASURES WITH LEVEL OF FUNCTION: Elbow Observations Comments: granular tissue with swelling and tenderness present at proximal bicep and lateral epicondyle TREATMENT: Manual Therapy: 1: STM to left UT, scapular muscles, biceps, triceps, wrist, forearm Skilled Intervention: Manual skills to improve joint mobility, ROM, and decrease pain. Utilized anatomy knowledge of the therapist, and assessment of patient's response to intervention. Neuromuscular Re-Education: 1: neurogenic inflammation with cards 2: shoulder flexion against the wall x8 reps 3: reviewed nerve glides Skilled Intervention: Education in proprioceptive/kinesthetic awareness during upper extremity positioning. Patient education as noted. Billing: [facility]: Manual Therapy ([id number]): 1:1 time: 25 minutes (2 units: 23-37 mins) Neuromuscular Re-education ([id number]): 1:1 time:20 minutes (1 unit: 8-22 mins) Total time: 45 minutes Gracie Marie PT CNTHERAPY Observed: 09/05/2017 Status: COMPLETED Source: [place] 3:30 PM [facility] REPOSITORY OT/PT/Speech Visit (PHYTMN) DAVID NATION ([id number]) 1960 F Date Time Provider Department 09/05/17 3:30 PM GRACIE MARIE (PT) PHYTMN Date Time Provider Department Center 09/05/2017 3:30 PM [id number] MARIE (*PHYTMN [facility] Reason for Visit: Physical Therapy [503] Primary Visit Diagnosis:Pain in left wrist [M25.532] Other Visit Diagnoses:Chronic left shoulder pain [M25.512, G89.29] Pain in left elbow [M25.522] Allergies As of Date: 09/05/2017 Noted Allergy Reaction PENICILLINS 09/21/2005 2 - Rash PREDNISONE 09/21/2005 1 - Mental Status Change Comments: Depression Date Reviewed: 04/25/2017 Reviewed by: Donna Walsh - Fully Assessed Prescriptions as of 09/05/2017 Sig: NAPROXEN 375 MG TABLET Take 1 tablet by mouth twice * PREGABALIN 25 MG CAPSULE Take 1 capsule by mouth three* DOXEPIN 10 MG CAPSULE Take 10 mg by mouth daily at * ATOMOXETINE 60 MG CAPSULE Take 60 mg by mouth once juan luis* Progress Notes: Gracie Marie PT 09/07/2017 3:30 PM Signed Episode Visit Count: 22 Therapist That Will Oversee The Plan Of Care: Gracie Marie PT DPT Start of Care Date: 02/13/17 Onset Date: 08/01/16 Plan of Care Certification Date: 07/18/17 REHABILITATION AND SPORTS THERAPY PHYSICAL THERAPY TREATMENT NOTE ASSESSMENT: David Nation demonstrated some swelling and granular tissue in C5/C6 dermatome pathway on left arm. Highly sensitive to touch, but decreased swelling noted with soft tissue mobilization to the affected area. Continue to recommend psychology and/or CPRP. The patient will continue to benefit from continued skilled physical therapy for graded motor imagery, progressive strengthening, soft tissue mobilization. Recommend progressive increase in activity prior to starting work. PLAN FOR NEXT VISIT: continue STM, progress active motion as tolerated, GMI, exercise SUBJECTIVE: This week is going fine. Still with achy, burning, soreness in the left arm Pain Score: 4/10 Pain Location: Shoulder - Left;Wrist - Left;Elbow - Left Description: Burning Frequency: Continuous OBJECTIVE MEASURES WITH LEVEL OF FUNCTION: Elbow Observations Comments: granular tissue with swelling and tenderness present at proximal bicep and lateral epicondyle TREATMENT: Manual Therapy: 1: STM to left UT, scapular muscles, biceps, triceps, wrist, forearm Skilled Intervention: Manual skills to improve joint mobility, ROM, and decrease pain. Utilized anatomy knowledge of the therapist, and assessment of patient's response to intervention. Neuromuscular Re-Education: 1: neurogenic inflammation with cards 2: shoulder flexion against the wall x8 reps 3: reviewed nerve glides Skilled Intervention: Education in proprioceptive/kinesthetic awareness during upper extremity positioning. Patient education as noted. Billing: [facility]: Manual Therapy ([id number]): 1:1 time: 25 minutes (2 units: 23-37 mins) Neuromuscular Re-education ([id number]): 1:1 time:20 minutes (1 unit: 8-22 mins) Total time: 45 minutes Gracie Marie PT PROGRESS Observed: 08/29/2017 Status: COMPLETED Source: [place] 3:49 PM [facility] [place] REPOSITORY HNO ID: [id number] Author: Gracie (Siobhan) Cynthia Service: (none) Author Type: Physical Therapist Type: Progress Notes Filed: 08/29/2017 3:54 PM Note Text: Episode Visit Count: 21 Therapist That Will Oversee The Plan Of Care: Gracie Marie PT DPT Start of Care Date: 02/13/17 Onset Date: 08/01/16 Plan of Care Certification Date: 07/18/17 Patient Identified by Name and Date of : Yes REHABILITATION AND SPORTS THERAPY PHYSICAL THERAPY PROGRESS REPORT PLAN OF CARE UPDATE: Assessment: David Nation exhibits improvements in self management of symptoms, pain levels, sensitivity to touch. She is ready to begin working again and has been taking steps to begin employment. QuickDASH scores are improving steadily. She continues to be limited with lifting overhead, heavy lifting, sleeping. She is progressing as expected towards her therapy goals as demonstrated by: home exercise program compliance, pain levels, documented subjective information on progress and documented objective information regarding overall function. She will benefit from continued skilled therapy requiring manual therapy, education, exercise, graded motor imagery in order to further improve quality of life and overall function. I continue to recommend input from pain psychology, either in individual sessions or an interdisciplinary pain program, but patient is reluctant at this time. Functional gains: Improved quality of movement Increased independence with HEP Goals for Episode of Care Goals updated on 08/29/2017. Amite in home exercise program. Met to date Patient will decrease pain rating by 2 points to meet minimal clinical important difference for numeric pain rating scale. Partially met Patient will increase active ROM of left shoulder to equal right to allow pt to improved performance of ADLs. Met Patient will increase active ROM of left wrist to equal right to allow pt to improved performance of ADLs. Met but painful Perform lifting 10 lbs without pain. Partially met, able to lift 6lbs over shoulders at previous session Demonstrate improvement on functional score: Patient will improve his/her score on Quick DASH by 8% to indicate a Minimal Clinical Important Difference . Met 2 point discrimination equal left and right wrists not assessed New goal: tolerate mirror therapy with active movement, 5 minutes without exacerbation of pain Not assessed today Planned Interventions, Frequency, and Duration: 1x/week, 8 weeks Total Number of Visits Planned: 25 Patient to be seen for Therapeutic exercise;Neuromuscular re-education;Manual therapy;Therapeutic activities;Self-intermediate management;Modalities;Patient/Family/Caregiver Education PLAN FOR NEXT VISIT: continue STM, progress active motion as tolerated, GMI, exercise SUBJECTIVE: Continues to make progress. Has been looking for employment and has a prospect she may start soon. Still sometimes feels that the arm is not her own. . Pain Score: 2/10 Pain Location: Wrist - Left;Shoulder - Left Description: Burning Frequency: Continuous Post Treatment Pain Score: No Change OBJECTIVE MEASURES WITH LEVEL OF FUNCTION: Sensation - Cervical Spine Cervical Spine Sensation - Comments: hyperalgesia throughout entire left arm Special Tests - Cervical Median Nerve: Left Positive TREATMENT: Manual Therapy: 1: STM to left UT, scapular muscles, biceps, triceps, wrist, forearm Skilled Intervention: Manual skills to improve joint mobility, ROM, and decrease pain. Utilized anatomy knowledge of the therapist, and assessment of patient's response to intervention. Neuromuscular Re-Education: 1: [email or web address] sleep hygiene 2: discussed DIMS and BARROS and importance of thought patterns 3: continue to recommend pain psychology consult 4: median nerve prayer glides 5: thumb tendon glide sequence bilaterally x6 reps Skilled Intervention: Education in proprioceptive/kinesthetic awareness during nerve and tendon gliding activites Patient education as noted. Sleep hygiene: -discussed standard bed time, cool dark room, avoiding alcohol or caffeine at night, regular exercise, park ideas, water intake schedule, avoiding TV or computer in bedroom, relaxation strategies Billing: [facility]: Manual Therapy ([id number]): 1:1 time: 35 minutes (2 units: 23-37 mins) Neuromuscular Re-education ([id number]): 1:1 time:25 minutes (2 units: 23-37 mins) Total time: 60 minutes Gracie Marie PT CNTHERAPY Observed: 08/29/2017 Status: COMPLETED Source: [place] 1:00 PM [facility] REPOSITORY OT/PT/Speech Visit (PHYTMN) DAVID NATION ([id number]) 1960 F Date Time Provider Department 08/29/17 1:00 PM GRACIE MARIE (PT) PHYTMN Date Time Provider Department Center 08/29/2017 1:00 PM [id number] MARIE (*PHYTMN [facility] Reason for Visit: PT Progress Note [1596] Primary Visit Diagnosis:Pain in left wrist [M25.532] Other Visit Diagnosis:Chronic left shoulder pain [M25.512, G89.29] Allergies As of Date: 08/29/2017 Noted Allergy Reaction PENICILLINS 09/21/2005 2 - Rash PREDNISONE 09/21/2005 1 - Mental Status Change Comments: Depression Date Reviewed: 04/25/2017 Reviewed by: Donna Walsh - Fully Assessed Prescriptions as of 08/29/2017 Sig: NAPROXEN 375 MG TABLET Take 1 tablet by mouth twice * PREGABALIN 25 MG CAPSULE Take 1 capsule by mouth three* DOXEPIN 10 MG CAPSULE Take 10 mg by mouth daily at * ATOMOXETINE 60 MG CAPSULE Take 60 mg by mouth once juan luis* Progress Notes: Gracie Marie PT 08/29/2017 3:54 PM Signed Episode Visit Count: 21 Therapist That Will Oversee The Plan Of Care: Gracie Marie PT DPT Start of Care Date: 02/13/17 Onset Date: 08/01/16 Plan of Care Certification Date: 07/18/17 Patient Identified by Name and Date of : Yes REHABILITATION AND SPORTS THERAPY PHYSICAL THERAPY PROGRESS REPORT PLAN OF CARE UPDATE: Assessment: David Nation exhibits improvements in self management of symptoms, pain levels, sensitivity to touch. She is ready to begin working again and has been taking steps to begin employment. QuickDASH scores are improving steadily. She continues to be limited with lifting overhead, heavy lifting, sleeping. She is progressing as expected towards her therapy goals as demonstrated by: home exercise program compliance, pain levels, documented subjective information on progress and documented objective information regarding overall function. She will benefit from continued skilled therapy requiring manual therapy, education, exercise, graded motor imagery in order to further improve quality of life and overall function. I continue to recommend input from pain psychology, either in individual sessions or an interdisciplinary pain program, but patient is reluctant at this time. Functional gains: Improved quality of movement Increased independence with HEP Goals for Episode of Care Goals updated on 08/29/2017. Amite in home exercise program. Met to date Patient will decrease pain rating by 2 points to meet minimal clinical important difference for numeric pain rating scale. Partially met Patient will increase active ROM of left shoulder to equal right to allow pt to improved performance of ADLs. Met Patient will increase active ROM of left wrist to equal right to allow pt to improved performance of ADLs. Met but painful Perform lifting 10 lbs without pain. Partially met, able to lift 6lbs over shoulders at previous session Demonstrate improvement on functional score: Patient will improve his/her score on Quick DASH by 8% to indicate a Minimal Clinical Important Difference . Met 2 point discrimination equal left and right wrists not assessed New goal: tolerate mirror therapy with active movement, 5 minutes without exacerbation of pain Not assessed today Planned Interventions, Frequency, and Duration: 1x/week, 8 weeks Total Number of Visits Planned: 25 Patient to be seen for Therapeutic exercise;Neuromuscular re-education;Manual therapy;Therapeutic activities;Self-intermediate management;Modalities;Patient/Family/Caregiver Education PLAN FOR NEXT VISIT: continue STM, progress active motion as tolerated, GMI, exercise SUBJECTIVE: Continues to make progress. Has been looking for employment and has a prospect she may start soon. Still sometimes feels that the arm is not her own. . Pain Score: 2/10 Pain Location: Wrist - Left;Shoulder - Left Description: Burning Frequency: Continuous Post Treatment Pain Score: No Change OBJECTIVE MEASURES WITH LEVEL OF FUNCTION: Sensation - Cervical Spine Cervical Spine Sensation - Comments: hyperalgesia throughout entire left arm Special Tests - Cervical Median Nerve: Left Positive TREATMENT: Manual Therapy: 1: STM to left UT, scapular muscles, biceps, triceps, wrist, forearm Skilled Intervention: Manual skills to improve joint mobility, ROM, and decrease pain. Utilized anatomy knowledge of the therapist, and assessment of patient's response to intervention. Neuromuscular Re-Education: 1: [email or web address] sleep hygiene 2: discussed DIMS and BARROS and importance of thought patterns 3: continue to recommend pain psychology consult 4: median nerve prayer glides 5: thumb tendon glide sequence bilaterally x6 reps Skilled Intervention: Education in proprioceptive/kinesthetic awareness during nerve and tendon gliding activites Patient education as noted. Sleep hygiene: -discussed standard bed time, cool dark room, avoiding alcohol or caffeine at night, regular exercise, park ideas, water intake schedule, avoiding TV or computer in bedroom, relaxation strategies Billing: [facility]: Manual Therapy ([id number]): 1:1 time: 35 minutes (2 units: 23-37 mins) Neuromuscular Re-education (38041): 1:1 time:25 minutes (2 units: 23-37 mins) Total time: 60 minutes Gracie Marie PT PROGRESS Observed: 08/15/2017 Status: COMPLETED Source: [place] 1:40 PM [facility] REPOSITORY HNO ID: [id number] Author: Gracie (Siobhan) Cynthia Service: (none) Author Type: Physical Therapist Type: Progress Notes Filed: 08/17/2017 2:43 PM Note Text: Episode Visit Count: 20 Therapist That Will Oversee The Plan Of Care: Gracie Marie PT DPT Start of Care Date: 02/13/17 Onset Date: 08/01/16 Plan of Care Certification Date: 07/18/17 [facility]ER[facility] PHYSICAL THERAPY TREATMENT NOTE ASSESSMENT: David K Rios demonstrated improved pain levels this week. She responded well to graded motor imagery and relaxation concepts today. Reiterated importance of scheduling with pain psychology, as I strongly believe that David will benefit from their skilled treatment. The patient will continue to benefit from continued skilled physical therapy for slow progression of graded movement, strength, nerve gliding. PLAN FOR NEXT VISIT: progress nerve glides, cervical and scapular strength as tolerated SUBJECTIVE: Doing better than she was last week, but not as good as she was a month ago. Made an appointment with pain management, not with CPRP, not yet with pain psych Pain Score: 4/10 Pain Location: Shoulder - Left;Wrist - Left Post Treatment Pain Score: No Change OBJECTIVE MEASURES WITH LEVEL OF FUNCTION: Cervical Spine AROM Cervical Retraction: Moderate limitation Special Tests - Cervical Median Nerve: Left Positive Ulnar Nerve: Left Positive Radial Nerve: Left Positive TREATMENT: Therapeutic Exercise: 2: standing cervical retraction (partial range) against the wall 3: seated scapular retraction 2x10 Skilled Intervention: Patient was educated in proper exercise technique and purpose for exercises. Skilled judgment was provided in selection of appropriate interventions. Correct performance of therapeutic exercises was facilitated with verbal and tactile cuing. Manual Therapy: 1: STM to left UT, scapular muscles, biceps, triceps Skilled Intervention: Manual skills to improve joint mobility, ROM, and decrease pain. Utilized anatomy knowledge of the therapist, and assessment of patient's response to intervention. Neuromuscular Re-Education: 1: imagined movements: sit to stand, reaching for refrigerator door 2: diaphragmatic breathing 3: gentle ulnar nerve glides (partial raise the roof) 4: median nerve prayer glides Skilled Intervention: Correct performance of movements was facilitated with verbal and tactile cueing. Patient education as noted. Billing: [facility]: Therapeutic Exercise ([id number]): 1:1 time: 10 minutes (1 unit: 8-22 mins) Manual Therapy ([id number]): 1:1 time: 25 minutes (2 units: 23- 37 mins) Neuromuscular Re-education (64913): 1:1 time:20 minutes (1 unit: 8-22 mins) Total time: 55 minutes Gracie Marie PT CNTHERAPY Observed: 08/15/2017 Status: COMPLETED Source: [place] 1:00 PM [facility] REPOSITORY OT/PT/Speech Visit (PHYTMN) DAVID NATION ([id number]) 1960 F Date Time Provider Department 08/15/17 1:00 PM GRACIE MARIE (PT) PHYTMN Date Time Provider Department Center 08/15/2017 1:00 PM [id number] MARIE (*PHYTMN [facility] Reason for Visit: Physical Therapy [503] Primary Visit Diagnosis:Pain in left wrist [M25.532] Other Visit Diagnosis:Chronic left shoulder pain [M25.512, G89.29] Allergies As of Date: 08/15/2017 Noted Allergy Reaction PENICILLINS 09/21/2005 2 - Rash PREDNISONE 09/21/2005 1 - Mental Status Change Comments: Depression Date Reviewed: 04/25/2017 Reviewed by: Donna Walsh - Fully Assessed Prescriptions as of 08/15/2017 Sig: NAPROXEN 375 MG TABLET Take 1 tablet by mouth twice * PREGABALIN 25 MG CAPSULE Take 1 capsule by mouth three* DOXEPIN 10 MG CAPSULE Take 10 mg by mouth daily at * ATOMOXETINE 60 MG CAPSULE Take 60 mg by mouth once juan luis* Progress Notes: Gracie Marie PT 08/17/2017 2:43 PM Signed Episode Visit Count: 20 Therapist That Will Oversee The Plan Of Care: Gracie Marie PT DPT Start of Care Date: 02/13/17 Onset Date: 08/01/16 Plan of Care Certification Date: 07/18/17 REHABILITATION AND SPORTS THERAPY PHYSICAL THERAPY TREATMENT NOTE ASSESSMENT: David Nation demonstrated improved pain levels this week. She responded well to graded motor imagery and relaxation concepts today. Reiterated importance of scheduling with pain psychology, as I strongly believe that David will benefit from their skilled treatment. The patient will continue to benefit from continued skilled physical therapy for slow progression of graded movement, strength, nerve gliding. PLAN FOR NEXT VISIT: progress nerve glides, cervical and scapular strength as tolerated SUBJECTIVE: Doing better than she was last week, but not as good as she was a month ago. Made an appointment with pain management, not with CPRP, not yet with pain psych Pain Score: 4/10 Pain Location: Shoulder - Left;Wrist - Left Post Treatment Pain Score: No Change OBJECTIVE MEASURES WITH LEVEL OF FUNCTION: Cervical Spine AROM Cervical Retraction: Moderate limitation Special Tests - Cervical Median Nerve: Left Positive Ulnar Nerve: Left Positive Radial Nerve: Left Positive TREATMENT: Therapeutic Exercise: 2: standing cervical retraction (partial range) against the wall 3: seated scapular retraction 2x10 Skilled Intervention: Patient was educated in proper exercise technique and purpose for exercises. Skilled judgment was provided in selection of appropriate interventions. Correct performance of therapeutic exercises was facilitated with verbal and tactile cuing. Manual Therapy: 1: STM to left UT, scapular muscles, biceps, triceps Skilled Intervention: Manual skills to improve joint mobility, ROM, and decrease pain. Utilized anatomy knowledge of the therapist, and assessment of patient's response to intervention. Neuromuscular Re-Education: 1: imagined movements: sit to stand, reaching for refrigerator door 2: diaphragmatic breathing 3: gentle ulnar nerve glides (partial raise the roof) 4: median nerve prayer glides Skilled Intervention: Correct performance of movements was facilitated with verbal and tactile cueing. Patient education as noted. Billing: [facility]: Therapeutic Exercise ([id number]): 1:1 time: 10 minutes (1 unit: 8-22 mins) Manual Therapy ([id number]): 1:1 time: 25 minutes (2 units: 23- 37 mins) Neuromuscular Re-education (59601): 1:1 time:20 minutes (1 unit: 8-22 mins) Total time: 55 minutes Gracie Marie PT PROGRESS Observed: 08/08/2017 Status: COMPLETED Source: [place] 1:20 PM [facility] [place] REPOSITORY HNO ID: [id number] Author: Gracie Marie Service: (none) Author Type: Physical Therapist Type: Progress Notes Filed: 08/10/2017 7:25 AM Note Text: Episode Visit Count: 19 Therapist That Will Oversee The Plan Of Care: Gracie Marie PT DPT Start of Care Date: 02/13/17 Onset Date: 08/01/16 Plan of Care Certification Date: 07/18/17 REHABILITATION AND SPORTS THERAPY PHYSICAL THERAPY TREATMENT NOTE ASSESSMENT: David Nation demonstrated increased pain throughout the left upper extremity, along with altered sensation, cool temperature of the left fingers, increased self reported depressive symptoms. She has been unable to schedule an appointment with pain psychology due to difficulties with the scheduling center. Recommended return visit to pain management physicians, consider pain psychology and perhaps CPRP--anticipate multidisciplinary care will be most beneficial for full recovery. At this point, decreased active exercise to tolerable level and recommend revisiting earlier steps of graded motor imagery. The patient will continue to benefit from continued skilled physical therapy for education, sensory retraining, graded motor imagery, exercise, manual therapy. PLAN FOR NEXT VISIT: revisit imagined movements, sensory training, exercise and stretching as tolerated SUBJECTIVE: Feels that her pain is the worst in has been in several months. Feeling more heaviness in the arm, more clumsiness in the left hand, for about a week. Has been doing nerve glides, cervical retraction, wall pushups, upper extremity elevation overhead Somewhat distressed and depressed regarding increase in symptoms. She does understand that the depression can affect the pain. Reports some negative thoughts (if I was I wouldn't care). Denies active suicidal ideation, denies any plan for self harm. Pain Score: 5/10 Pain Location: Shoulder - Left;Elbow - Left;Neck Post Treatment Pain Score: No Change OBJECTIVE MEASURES WITH LEVEL OF FUNCTION: Sensation - Upper Extremity UE Light Touch Sensation: Impaired Sensation - Cervical Spine Cervical Spine Sensation - Comments: left fingers feel cooler to touch vs right. Unable to distinguish between 1-2 finger light touch on left 5th and 3rd digit TREATMENT: Therapeutic Exercise: 2: supine head press 2x4 reps Skilled Intervention: Patient was educated in proper exercise technique and purpose for exercises. Skilled judgment was provided in selection of appropriate interventions. Manual Therapy: 2: ice massage to left UT, left shoulder, biceps, wrist extensors Skilled Intervention: Manual skills to improve joint mobility, ROM, and decrease pain. Utilized anatomy knowledge of the therapist, and assessment of patient's response to intervention. Neuromuscular Re-Education: 1: diaphragmatic breathing 2 sets x12 breaths 2: left/right discrimination with shoulder cards 3: left/right discrimination with hand cards 4: body scan mindfulness 5: education re: expected progress, options for follow up including pain psychology, return to pain management, CPRP Skilled Intervention: Desensitization training with side discrimination as noted. Skilled judgement for selection of appropriate interventions, guiding through breathing and visualization exercises as noted. Patient education as noted. Billing: [facility]: Therapeutic Exercise ([id number]): 1:1 time: 5 minutes (no charge) Manual Therapy ([id number]): 1:1 time: 15 minutes (1 unit: 8-22 mins) Neuromuscular Re-education (69596): 1:1 time:40 minutes (3 units: 38-52 mins) Total time: 60 minutes Gracie Marie PT CNTHERAPY Observed: 08/08/2017 Status: COMPLETED Source: [place] 1:00 PM [facility] REPOSITORY OT/PT/Speech Visit (PHYTMN) DAVID NATION ([id number]) 1960 F Date Time Provider Department 08/08/17 1:00 PM GRACIE MAREI (PT) PHYTMN Date Time Provider Department Center 08/08/2017 1:00 PM [id number] MARIE (*PHYTMN [facility] Reason for Visit: Physical Therapy [503] Primary Visit Diagnosis:Pain in left wrist [M25.532] Other Visit Diagnosis:Chronic left shoulder pain [M25.512, G89.29] Allergies As of Date: 08/08/2017 Noted Allergy Reaction PENICILLINS 09/21/2005 2 - Rash PREDNISONE 09/21/2005 1 - Mental Status Change Comments: Depression Date Reviewed: 04/25/2017 Reviewed by: Donna Walsh - Fully Assessed Prescriptions as of 08/08/2017 Sig: NAPROXEN 375 MG TABLET Take 1 tablet by mouth twice * PREGABALIN 25 MG CAPSULE Take 1 capsule by mouth three* DOXEPIN 10 MG CAPSULE Take 10 mg by mouth daily at * ATOMOXETINE 60 MG CAPSULE Take 60 mg by mouth once juan luis* Progress Notes: Gracie Marie, SIOBHAN 08/10/2017 7:25 AM Signed Episode Visit Count: 19 Therapist That Will Oversee The Plan Of Care: Gracie Marie, SIOBHAN DPT Start of Care Date: 02/13/17 Onset Date: 08/01/16 Plan of Care Certification Date: 07/18/17 REHABILITATION AND SPORTS THERAPY PHYSICAL THERAPY TREATMENT NOTE ASSESSMENT: David Nation demonstrated increased pain throughout the left upper extremity, along with altered sensation, cool temperature of the left fingers, increased self reported depressive symptoms. She has been unable to schedule an appointment with pain psychology due to difficulties with the scheduling center. Recommended return visit to pain management physicians, consider pain psychology and perhaps CPRP--anticipate multidisciplinary care will be most beneficial for full recovery. At this point, decreased active exercise to tolerable level and recommend revisiting earlier steps of graded motor imagery. The patient will continue to benefit from continued skilled physical therapy for education, sensory retraining, graded motor imagery, exercise, manual therapy. PLAN FOR NEXT VISIT: revisit imagined movements, sensory training, exercise and stretching as tolerated SUBJECTIVE: Feels that her pain is the worst in has been in several months. Feeling more heaviness in the arm, more clumsiness in the left hand, for about a week. Has been doing nerve glides, cervical retraction, wall pushups, upper extremity elevation overhead Somewhat distressed and depressed regarding increase in symptoms. She does understand that the depression can affect the pain. Reports some negative thoughts (if I was I wouldn't care). Denies active suicidal ideation, denies any plan for self harm. Pain Score: 5/10 Pain Location: Shoulder - Left;Elbow - Left;Neck Post Treatment Pain Score: No Change OBJECTIVE MEASURES WITH LEVEL OF FUNCTION: Sensation - Upper Extremity UE Light Touch Sensation: Impaired Sensation - Cervical Spine Cervical Spine Sensation - Comments: left fingers feel cooler to touch vs right. Unable to distinguish between 1-2 finger light touch on left 5th and 3rd digit TREATMENT: Therapeutic Exercise: 2: supine head press 2x4 reps Skilled Intervention: Patient was educated in proper exercise technique and purpose for exercises. Skilled judgment was provided in selection of appropriate interventions. Manual Therapy: 2: ice massage to left UT, left shoulder, biceps, wrist extensors Skilled Intervention: Manual skills to improve joint mobility, ROM, and decrease pain. Utilized anatomy knowledge of the therapist, and assessment of patient's response to intervention. Neuromuscular Re-Education: 1: diaphragmatic breathing 2 sets x12 breaths 2: left/right discrimination with shoulder cards 3: left/right discrimination with hand cards 4: body scan mindfulness 5: education re: expected progress, options for follow up including pain psychology, return to pain management, CPRP Skilled Intervention: Desensitization training with side discrimination as noted. Skilled judgement for selection of appropriate interventions, guiding through breathing and visualization exercises as noted. Patient education as noted. Billing: [facility]: Therapeutic Exercise ([id number]): 1:1 time: 5 minutes (no charge) Manual Therapy (71175): 1:1 time: 15 minutes (1 unit: 8-22 mins) Neuromuscular Re-education (98478): 1:1 time:40 minutes (3 units: 38-52 mins) Total time: 60 minutes Gracie Marie PT ALLERGIES ALLERGIES DATE TYPE / CODE NAME / CODE REACTION SEVERITY SOURCE 06/27/2018 Drug Penicillins/[id number] Hives Unknown [place] Allergy/416 0476(RXNORM) [facility] 346649([facility] ED CT) Repository 06/27/2018 Drug prednisone/[id number] Unknown Unknown [place] Allergy/416 164(RXNORM) Formerly [facility] 113557([facility] ED CT) Repository 09/21/2005 Drug PENICILLINS RASH [facility] Class/58862 Main Fine 1003(SNOMED Repository CT) 09/21/2005 DRUG PREDNISONE Mental Chg [facility] INGREDI/419 Main Fine 597101([facility] Repository ED CT) ENCOUNTERS ENCOUNTERS ADMIT/DISCHARGE ACCOUNT ADMITTING ENCOUNTER LOCATION SOURCE NUMBER CLASS 07/23/2018/07/24/19 [id number] Ambulatory [address] Repository 07/18/2018/07/18/19 [id number] Ambulatory [address] Repository 07/02/2018/12/18 [id number] [facility] [address] Repository 07/02/2018/07/03/20 [id number] [facility] [address] [place] Repository 06/27/2018/06/28/20 [id number] Emergency Wanda Muñoz [address] [place] [address] ing:ED Repository 06/19/2018/06/19/20 [id number] [facility] [address] [place] Repository 06/12/2018/06/12/20 [id number] [facility] [address] [place] Repository 06/12/2018/06/13/20 [id number] [facility] [address] [place] Repository 06/07/2018/06/10/20 [id number] [facility] [address] [place] Repository 12/11/2017/12/12/19 [id number] [facility] [address] [place] Repository 12/09/2017/12/12/19 [id number] [facility] [address] [place] Repository 10/04/2017/10/05/19 [id number] [facility] [address] [place] Repository 09/26/2017/09/27/19 [id number] [facility] [address] [place] Repository 09/20/2017/09/21/19 [id number] [facility] [address] [place] Repository 09/14/2017/09/15/19 [id number] [facility] [address] [place] Repository 09/12/2017/09/12/19 [id number] [facility] [address] [place] Repository 09/05/2017/09/05/19 [id number] [facility] [address] [place] Repository 08/29/2017/08/29/19 [id number] [facility] [address] [place] Repository 08/15/2017/08/15/19 [id number] [facility] [address] [place] Repository 08/08/2017/08/08/19 [id number] [facility] [address] [place] Repository PAYERS PAYERS ENCOUNTER GUARANTOR PAYER SUBSCRIBER SOURCE 06/27/2018 David Nava Primary Insurance:[facility] David Nation1138 [facility] PLANPolicy [facility]: [facility] [place]: [id number] [id number] Repository 266[address]Kyg: (330) Date:[id number] [phone] () [address], [place] [address]OG: 06/27/2018 Secondary NOT GIVENUNK Wanda Insurance:SELF PAY [facility]: Effective Repository Date:2018-06-27
== END 2018-06-28 00:31 | disposition home or self-care (01) ==
PROVIDERS: Emergency Provider Emergency Medicine; PCP Internal Medicine
DX: S92.512A Displaced fracture of proximal phalanx of left lesser toe(s), initial encounter for closed fracture (principal); S80.11XA Contusion of right lower leg, initial encounter; W22.03XA Walked into furniture, initial encounter; Y93.9 Activity, unspecified; Y92.9 Unspecified place or not applicable; Y99.9 Unspecified external cause status; Z72.0 Tobacco use; Z79.899 Other long term (current) drug therapy
CPT/HCPCS: 73630; 99283

== ENCOUNTER 2018-08-19 17:30 | Emergency (ER) | payer MEDICAID, SELFPAY ==
[2018-08-19 17:31] VITALS: BP 140/72; PULSE 82; RESP 20; TEMP 36.8; O2SAT 97; BMI 17.0
--- NOTE | 2018-08-19 17:35 | RAD_ITS ---
STUDY: X-RAY - UNILATERAL RIBS ( LEFT ) WITH CHEST REASON FOR EXAM: Female, 57 years old. Left rib pain. TECHNIQUE - RIBS: 2 view(s) of the ribs. TECHNIQUE - CHEST: Single PA view of the chest. COMPARISON: None. FINDINGS - RIBS: Normal visualized ribs without a demonstrated fracture. FINDINGS - CHEST: The lungs are clear and expanded. There is no demonstrated pleural abnormality. Normal size heart. Normal mediastinum and vick. Normal visualized pulmonary arteries. Normal visualized aortic arch and descending thoracic aorta. Normal visualized thoracic spine. Normal visualized ribs, clavicles, and shoulders. There is no demonstrated abnormality of the visualized soft tissue structures of the upper abdomen. RAD/Ribs Uni Min 3V w/PA Chest IMPRESSION: RIBS: Normal x-ray examination of the ribs. CHEST: Normal x-ray examination of the chest. Electronically Signed: Ritu Fontenot MD at 18:37 EST Tel , Service support ,
--- NOTE | 2018-08-19 19:54 | ED.RN ---
CALLED PT TO TAKE HER TO A ROOM. NO RESPONSE
== END 2018-08-19 19:54 | disposition left against medical advice (07) ==
LOC: ED 20:24
PROVIDERS: Emergency Provider Emergency Medicine; Family Provider Internal Medicine; PCP Internal Medicine
DX: R07.81 Pleurodynia (principal)
CPT/HCPCS: 71101

== ENCOUNTER 2019-10-06 10:20 | Emergency (ER) | payer MEDICAID, SELFPAY ==
[2019-10-06 10:21] VITALS: BP 136/91; PULSE 97; RESP 19; TEMP 36.6; O2SAT 98; BMI 16.9
--- NOTE | 2019-10-06 10:50 | ED.VIS.GEN ---
History of Present Illness Chief Complaint: Shortness of Breath Informant: Patient Onset: Weeks - 2 Narrative: Patient reports 2 weeks of cough. States with breathing feels some tightness around her chest. Initial symptoms end of last month with feeling some congestion in her chest. She discussed with her PCP office 4 days ago called in for [email or web address] day 4 for 5 an outpatient chest x-ray reports it was negative. She states not helping yesterday noting some more shortness of breath. Tobacco history. Denies asthma or COPD. Waxing waning fevers over the past few days. No urinary symptoms. States antibiotics has caused some soft loose stools. No flu vaccination this year. Denies sick contacts. Called PCP office today was referred to the ED. I did discuss over the phone with nurse who called and reported patient symptoms. Patient does not take any daily medicines. Prior similar symptoms: No Past Medical History - Allergies and Home Meds Allergies/Adverse Reactions: Allergies Penicillins [PCN] Allergy (Verified 10/06/19 10:20) Hives prednisone Allergy (Verified 10/06/19 10:20) Unknown Primary Care Physician: Jocelynn Shaw MD [Primary Care Provider] - Past Medical History: None Smoking Status: Current every day smoker Review of Systems General: Reports: Fever. Denies: Chills, Sweats Eyes: Denies: Visual changes - bilaterally, Diplopia ENT: Denies: Rhinorrhea, Sore throat Cardiovascular: Denies: Chest pain, Palpitations Respiratory: Reports: Cough. Denies: Dyspnea, Dyspnea on exertion Gastrointestinal: Denies: Abdominal pain, Nausea, Vomiting, Diarrhea, Melena, Hematochezia Genitourinary: Denies: Dysuria, Hematuria, Frequency Musculoskeletal: Denies: Back pain, Extremity Pain Skin: Denies: Rash, Wounds Neurological: Denies: Headache, Weakness, Numbness Physical Exam Vital Signs/Narrative: Vital Signs Temp Pulse Resp BP Pulse Ox 10/06/19 10:21 97.9 F 97 19 H 136/91 H 98 Inital Vital Signs reviewed: Yes General: Well nourished, Well developed, No Acute Distress Head: Normocephalic, Atraumatic Eyes: Perrl, EOMI ENT: - - Patient wearing surgical mask for protection. Neck: Supple, Nontender Cardiovascular: Regular rate, Regular rhythm, No murmurs Respiratory: No distress, CTA bilaterally, Chest nontender Abdomen: Soft, Nontender, Nondistended, Normal bowel sounds Back: Nontender, Normal Inspection Extremities: Nontender, No edema Skin: Normal color, No rash Neurological: Alert, Oriented x3, Cranial nerves II-XII grossly intact, Normal Strength, Normal Sensation Psychological: Normal affect, Normal Mood Diagnostic/Tx/Re-eval Clinical Impression(s) from Imaging Studies Chest X-Ray 10/06/19 11:00 IMPRESSION: Hyperinflation. Electronically Signed: Derik Shine, at 11:18 EDT , Service support , - Medical Decision Making Patient vital signs stable, nontoxic. RSV influenza negative. Chest x-ray negative. Patient over 2 weeks out of symptoms, outside the window for significant concerns however she is given Covid instructions and return precautions due to pandemic. Inhaler MDI provided did provides some symptomatic relief. She will continue this. Signs and symptom discussed return. All questions were answered. ED Disposition - Plan for ED Patient: Disposition: Psychiatric Hospital or Unit Diagnosis: Viral illness Instructions: BRONCHITIS, Antiobiotic Treatment (Adult) Prescriptions: Benzonatate [Tessalon Perle] 200 mg PO TID PRN PRN #20 cap PRN Reason: Cough Transmission Status: Pending to [facility] Referrals: Jocelynn Shaw MD [Primary Care Provider] - 5-7 Days Additional Instructions: finish your antibiotic.
--- NOTE | 2019-10-06 11:00 | RAD_ITS ---
STUDY: X-RAY CHEST REASON FOR EXAM: Female, 58 years old. Cough for several weeks, chest tightness, SOB TECHNIQUE: Single AP portable view of the chest. COMPARISON: Comparison is made with prior examination dated August 19, 2018. FINDINGS: Hyperinflation. There is no demonstrated pleural abnormality. Normal size heart. Normal mediastinum and vick. Normal visualized pulmonary arteries. Normal visualized aortic arch and descending thoracic aorta. Normal visualized thoracic spine. Normal visualized ribs, clavicles, and shoulders. There is no demonstrated abnormality of the visualized soft tissue structures of the upper abdomen. RAD/Chest 1 View (Portable) IMPRESSION: Hyperinflation. Electronically Signed: Derik Shine, at 11:18 EDT , Service support ,
[2019-10-06 12:29] VITALS: PULSE 76; RESP 18; O2SAT 97
== END 2019-10-06 12:33 | disposition home or self-care (01) ==
PROVIDERS: Emergency Provider Emergency Medicine; PCP Internal Medicine
DX: B34.9 Viral infection, unspecified (principal); R07.89 Other chest pain; F17.200 Nicotine dependence, unspecified, uncomplicated; Z79.899 Other long term (current) drug therapy; Z88.0 Allergy status to penicillin
CPT/HCPCS: 71045; 87804; 87807; 94640; 99283

== ENCOUNTER → 2019-11-27 12:20 | Outpatient (CLI) | payer MEDICAID, SELFPAY ==
[2019-12-02 04:38] LABS: SAR-COV-2 IGA ANTIBODY Negative (Negative); SAR-COV-2 IGG ANTIBODY Negative (Negative); SAR-COV-2 IGM ANTIBODY Negative (Negative)
== END ==
PROVIDERS: PCP Internal Medicine; Referring Provider Psychiatry & Neurology Psychiatry; Visit Provider Psychiatry & Neurology Psychiatry
DX: Z03.818 Encounter for observation for suspected exposure to other biological agents ruled out (principal); J06.9 Acute upper respiratory infection, unspecified
CPT/HCPCS: 86769; G2023

== ENCOUNTER 2023-11-14 16:33 | Emergency (ER) | payer MEDICAID, SELFPAY ==
[2023-11-14 16:35] VITALS: BP 132/83; PULSE 65; RESP 18; TEMP 36.6; O2SAT 100; BMI 18.3
--- NOTE | 2023-11-14 16:37 | RAD_ITS ---
STUDY: X-RAY - RIGHT SHOULDER REASON FOR EXAM: Female, 63 years old. INJURY TECHNIQUE: 4 view(s) of the shoulder. COMPARISON: None. FINDINGS: Narrowed glenohumeral articulation. Narrowed acromioclavicular joint. Normal acromion. Normal humeral head and visualized proximal humerus. The soft tissue structures are unremarkable. Normal visualized pulmonary apex. RAD/Shoulder min 2 Views IMPRESSION: Degenerative change. No acute fracture or dislocation. Electronically Signed: Margarito Ruiz MD at 17:16 EDT ,
[2023-11-14 20:00] VITALS: BP 120/74; PULSE 81; RESP 16; TEMP 36.6; O2SAT 99
--- NOTE | 2023-11-14 23:32 | EDS_ITS ---
HPI History of Present Illness Chief Complaint: Upper Extremity Injury Narrative Narrative: With 63-year-old female presenting with right shoulder pain. She states she saw somebody that she had not seen in a very long time and he was very tall and when she reached up to hug him she felt a sharp pain in the back of her right shoulder. She states that every time she lifts her arm and flexes her shoulder she gets a sharp pain that radiates down the back of her arm into her hand. When she is not doing this she does not have any pain. She states that a long time ago she was doing some heavy lifting and noted that she had pain and then that was similar. That resolved on its own. Patient states she does not like to take medicine but she did take Tylenol today which is out of the normal for her. She states she just went back to work after a long layoff due to having long COVID. She states she does not do heavy lifting at work. [facility] Medical History Physical exam, pre-employment Home Medications atomoxetine 40 mg capsule (Strattera) 60 mg PO DAILY 07/31/16 [History Last Taken 07/31/16 08:00] albuterol sulfate 90 mcg/actuation aerosol inhaler 2 puff IH Q4H PRN PRN Sob &/Or Wheezing 10/06/19 [History Last Taken Unknown] benzonatate 100 mg capsule 100 mg PO TID PRN PRN Cough 10/06/19 [History Last Taken Unknown] benzonatate 100 mg capsule 200 mg (2 x 100 mg) PO TID PRN PRN Cough #20 caps 10/06/19 [Rx Last Taken Unknown] lidocaine 5 % topical patch (Lidoderm) 2 patch topical DAILY #15 ea 11/14/23 [Rx Last Taken Unknown] Allergy/AdvReac Type Severity Reaction Status Date / Time Penicillins [PCN] Allergy Hives Verified 10/06/19 10:20 prednisone Allergy Unknown Verified 10/06/19 10:20 Social History Smoking Status: Current every day smoker tobacco type: cigarettes ROS ROS ED Constitutional Constitutional ED: Denies chills, fever(s) or sweats Eyes Eyes: Denies blurry vision or change in vision ENT ENT ED: Denies ear pain or sore throat Cardiovascular Cardiovascular: Denies chest pain, palpitations or racing heartbeat Respiratory/Chest Respiratory/Chest: Denies cough, dyspnea or sputum Gastrointestinal Gastrointestinal: Denies abdominal pain, constipation, diarrhea, nausea or vomiting Genitourinary Genitourinary ED: Denies dysuria, hematuria or urinary frequency Musculoskeletal Musculoskeletal: Reports other Details: Right shoulder pain ; Denies arthralgias, myalgias or neck pain Integumentary Denies abscess, Abrasions or rash Neurologic Neurologic: Denies headache(s), paresthesias or weakness Psychiatric Psychiatric: Denies anxiety, depression, suicidal ideation or suicidal thoughts Endocrine Endocrinology: Denies polydipsia or polyuria EXAM Physical Exam Const Vital Signs: 11/14/23 16:35 11/14/23 20:00 Temperature 97.8 F 98 F Temperature Source Temporal Pulse Rate 65 81 Respiratory Rate 18 16 Blood Pressure 132/83 H 120/74 Blood Pressure Mean 99 89 Pulse Ox 100 99 Oxygen Delivery Method Room Air Positive well nourished General Appearance ED: NAD HEENT Reports moist mucous membranes normocephalic Eyes PERRL Chest Wall inspection of chest normal Resp normal respiratory effort Cardio regular rate and regular rhythm Extremity Extremity Narrative: There is tenderness to palpation over the posterior aspect of the right shoulder and trapezius. This area does reproduce her pain. When she extends her shoulder and abduct her shoulder it is not as tender but when she flexes it she does reduce the pain and has a radiation pain. Neurovascular intact brisk cap refill. Neuro oriented x3 and CN's II-XII intact bilaterally Sensorium / Orientation: alert Psych mental status grossly normal MDM MDM MDM Narrative Medical decision making narrative: Patient presenting with right shoulder pain. She stated acutely started hurting when she was trying to hug somebody that was taller than her. She did not feel a pop but felt sharp pain. On examination she has a focal area of tenderness at the distal aspect of the right trapezius at the scapular insertion. There is no redness or swelling, bruising. X-rays of the right shoulder showed no acute fracture or subluxation on my interpretation. Counseled patient this is likely something musculoskeletal she lives strained a muscle or possibly torn something I recommended follow-up with orthopedics. She was amenable to this. She does not want any medications for home because she does not like to take pills. I did give her some Lidoderm patches to see if that would help her. She was given orthopedic follow-up and return precautions discussed. Impression: 1. Right shoulder strain Radiography Diagnostic Testing: Clinical Impression(s) from Imaging Studies Shoulder X-Ray 11/14/23 16:37 IMPRESSION: Degenerative change. No acute fracture or dislocation. Electronically Signed: Margarito Ruiz MD at 17:16 EDT , Discharge Plan Triage Chief Complaint: Upper Extremity Injury ED Provider: Richard Ceja Dx/Rx/DC Orders Instructions: ED Muscle Strain, Extremity Prescriptions: New lidocaine [Lidoderm] 5 % adhesive patch,medicated 2 patch topical DAILY Qty: 15 0RF Rx Instructions: leave on most painful area for up to 12 hrs No Action atomoxetine [Strattera] 40 MG capsule 60 mg PO DAILY Patient Comments: ADHD benzonatate 100 MG capsule 100 mg PO TID PRN PRN (Reason: Cough) albuterol sulfate 8.5 GM HFA aerosol inhaler 2 puff IH Q4H PRN PRN (Reason: Sob &/Or Wheezing) benzonatate 100 MG capsule 200 mg PO TID PRN PRN (Reason: Cough) Qty: 20 0RF Stand Alone Forms: ED Work / School Excuse Primary Care Provider: Care Physician,No Primary Referrals: Juliano Alatorre MD [Med Staff - Active Staff] - As soon as possible Care Physician,No Primary [Primary Care Provider] - Disposition Disposition: Home, Self Care Discharge Date/Time: 11/14/23 20:05
== END 2023-11-14 20:05 | disposition home or self-care (01) ==
PROVIDERS: Emergency Provider Student in an Organized Health Care Education/Training Program; Visit Provider Student in an Organized Health Care Education/Training Program
DX: S46.911A Strain of unspecified muscle, fascia and tendon at shoulder and upper arm level, right arm, initial encounter (principal); X58.XXXA Exposure to other specified factors, initial encounter; F17.210 Nicotine dependence, cigarettes, uncomplicated
CPT/HCPCS: 73030; 99283

== ENCOUNTER 2024-10-23 13:00 | Outpatient (RCR) | payer MEDICARE, OTHER, SELFPAY ==
--- NOTE | 2024-09-11 15:52 | HP.PTEVAL ---
Patient's Visit Information Visit Information Visit Information: GIOVANNA LITTLE is a 63 year old F referred to Physical Therapy by CARLOTTA ARCHER with a diagnosis of Myalgias. Date of Evaluation: 09/11/24 Physical Therapist: Armando Miranda, ARIANAT, OCS, CSCS Visit Plan Frequency: 2x /Week Duration: 4-6 Weeks Plan: 2x/week fro 4-6 weeks. IE HEP: fis 15x 3x/day and montior effects on tingling/pain in lower legs Treat with: MH, rollout and stretching to B gastroc and HS, teach stretches for HEP, May do some LB STM paraspinals also. LB ROM progression flexion and rotation bias to HEP core stab and strengthening starting mat and to HEP general ex when feeling better Pt may get massage on her own Subjective Subjective: 16 months ago in April got a horrible [place] that lasted long time. January last year had MRI of neck and head. 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 Therapist did dry needling upper neck and they were painful. Since then has felt like whole body has been clenched. Also started feeling pain R LE and into feet into toes. It was scary and frightening. Now on muscle relaxer as she is tense all over. Stomach felt like spasms at night. Is on muscle relaxer now for three weeks which is helping. Went to ER due to leg pain last year and had CATSCAN of spine finding stenosis in lumbar area. Symptom is total tightness in whole body through LE especially. It is always there. It is constant and unchanging. Nothing really makes her worse she says at first but then says walking is limited to a mile at most and used to do 3 miles. That is leg pain that gets worse. it is B knees and feet and toes. She has ADHD. stopped that medication recently. Other than walking, feels the same most of time. Sleep is not great, At [facility] b/c of [place] and now due to tension adn leg pain. Sleeps 2 hrs then wakes up due to leg pain. 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 Retired Last year. Hobbies: Landscaping but not lately. Is planning to move so gathering stuff at home to get rid of stuff. Pain Pain legs: Pain Intensity (Out of 10): 7 Pain Intensity Range: 3 and 10 Objective Objective: Walks into PT I, trasnfers I, no gait deviations. Posture is flat lordosis and slightly FW head. Looks tense. She is highly anxious and slightly emotional with her tingling pain today. States history of anxiety but has not seen counselor lately and I recommended that she should. LB AROM ext max limited and pain centrally, flexion mod deficits and no pain but tight, sB min deficits, no pain. cervical aROM WFL and without discomfort. max tender L subocciptial area. LE AROM WFL, Mod tightness is HS B -30 90/90 test and gastroc to -2 AROM DF. rflexes 2/3 in patella and achilles B. Sensation LE WNL to gross light touch although claims tingling posteriorly below knees into feet. strength is 3+ in hips abd and flexion with core isntability, xt 3 B. kne flexion and ext 3+ B ankles 4- without pain. Good balance but highly anxious and emotional about this pain and tension nad needing to get rid of it. Min tender in gastroc and HS B. Balance/Special Test Scores Oswestry Low Back Score: 19 Goals Goal 1:: Sleep 6 hours without waking due to pain Goal Time Frame: 4-6 Weeks Goal 2:: Pain in lower legs and tingling 75% better and 2/10 at worst Goal Time Frame: 4-6 Weeks Goal 3:: I approrpiate HEP to limit future problems Goal Time Frame: 4-6 Weeks Goal 4:: lumbar and pelvic ROM without pain or hesitation Goal Time Frame: 4-6 Weeks Rehabilitation Potential Physical Therapy Diagnosis: Tingling and pain in lower legs limiting comfortable funcitona dn causing anxiety. Rehabilitation Potential: Questionable Anticipated Interventions Patient/Client Instruction: Educate patient on: Condition and Plan of Care For the Purpose of:: To decrease pain, To increase ROM, To improve nutrient delivery to tissue, To improve muscle performance and motor function and To increase tolerance to activity/condition/position Therapeutic Exercise to Include: Strength training, Postural training, Flexibilty training, Passive ROM, Active ROM and Dynamic Lumbar Stabilization For the Purpose of:: To decrease pain, To increase ROM, To improve nutrient delivery to tissue, To improve muscle performance and motor function, To increase tolerance to activity/condition/position and To improve performance and independence with ADL's Manual Therapy Techniques to Include: Mobilization, Passive ROM and Soft tissue mobilization For the Purpose of:: To decrease pain, To increase ROM, To improve nutrient delivery to tissue, To increase tolerance to activity/condition/position and To improve ability of physical actions for home/community/work/leisure Thermo therapy (hot pack): Yes For the Purpose of:: To decrease pain and To improve nutrient delivery to tissue Text: Thank you for the opportunity to evaluate your patient. For Medicare and Medicare HMO plans, please review the plan of care and approve it. It will need to be FAXED BACK to us at [phone] for Medicare purposes. For Medicare only, by signing this I certify the plan of care. Please let me know if there are questions or concerns regarding this plan of care. Physician Signature: Date:
--- NOTE | 2024-10-23 13:56 | HP.PTDCSUM_ITS ---
Discharge Summary D/C summary: It has been my pleasure to treat GIOVANNA LITTLE referred by CARLOTTA ARCHER, with the diagnosis of Myalgias for a total of 13 visit(s). Discharge Date: 10/23/24 Please see the following information for a summary of their discharge status. Subjective Subjective: I thought I was getting better. Work on next last session brought back some tightness in legs. Overall felt better about 40% and arms feel weak and legs feel tight and tired. Will see Dr. Hollingsworth next week. He will look at neck. Strength is better but weird bizarre feeling is back in legs. [facility]. Pain Pain legs: Pain Intensity (Out of 10): 7 bilat SI: Pain Intensity (Out of 10): 0 neck: Pain Intensity (Out of 10): 7 bilat UE: Pain Intensity (Out of 10): 7 Overall Improvement % Improvement: 60 Objective Objective/Function: Odd symptoms with paitent having difficulty putting them into words just saying bizarre feeling in legs and sometimes tightness. Focussed on the start of this which wasz with dry needling to her neck at another clinic. Was doing better but manual therapy with release to neck has brought back some of the goofy feeling throughout body. Muscle of LE are not overly tight. Lumbar area moving well with only minimal limitations in ROM ext and flexion adn SB looking good and painfree today. No myotomal abnormalites in legs today. Walking normal. Goals Goal 1:: Sleep 6 hours without waking due to pain Goal Progress: doxepam, 8 hrs Goal 2:: Pain in lower legs and tingling 75% better and 2/10 at worst Goal Progress: Not Progressing Goal 3:: I approrpiate HEP to limit future problems Goal Progress: Goal Met Goal 4:: lumbar and pelvic ROM without pain or hesitation Goal Progress: Goal Met Plan Plan: d/c due to lack of improvement, pt to get back to doctor and continue HEP and gym ex. D/C Information Discharge Comments: Pt not making consistent improvement in subjective complaints and will see sales administration specialist next week. d/c sentence: If there are questions or concerns regarding this patient's physical therapy, please feel free to call me at [phone]. Thank you for the referral of this patient. Sincerely, Armando Miranda, DPT, OCS, CSCS Balance/Gait/Functional tests Balance/Special Test Scores Oswestry Low Back Score: 20 Improvement % Improvement: 60
== END 2024-10-23 19:00 | disposition home or self-care (01) ==
LOC: PT 13:00
DX: M79.10 Myalgia, unspecified site (principal)
CPT/HCPCS: 97110; 97140; 97162; 97164; 97530

== ENCOUNTER → 2024-11-25 | Outpatient (CLI) | payer MEDICARE, SELFPAY ==
[2024-11-25 18:37] LABS: Thyroid Stim Hormone (TSH) 0.998 uIU/mL (0.300-4.200)
== END | disposition home or self-care (01) ==
PROVIDERS: Referring Provider Internal Medicine Gastroenterology; Visit Provider Internal Medicine Gastroenterology
DX: R10.9 Unspecified abdominal pain (principal); R19.4 Change in bowel habit; I10 Essential (primary) hypertension
CPT/HCPCS: 36415; 84436; 84443

== ENCOUNTER 2024-11-28 10:00 | Outpatient (RCR) | payer MEDICARE, MEDICAID, SELFPAY ==
--- NOTE | 2024-11-05 11:00 | HP.PTEVAL ---
Patient's Visit Information Visit Information Visit Information: GIOVANNA LITTLE is a 63 year old F referred to Physical Therapy by Dr. Derrell Hollingsworth MD with a diagnosis of neck pain. Date of Evaluation: 11/05/24 Physical Therapist: Armando Miranda, ARIANAT, OCS, CSCS Visit Plan Frequency: 2-3x /Week Duration: 4-6 Weeks Plan: 2-3x/week for 3-6 for 1. MH and STM to B neck L >R into scm and include ear pull, manual traction, PROM R rotation and ext and mobs for the same.UT stretch , lev scap stretch, SCM stretch to HEP 2. when motion better, progress to neck strength and stretching via HEP Pt to painm management in meantime Dr. Glen Araujo LBP started last week and improving.Limited motion comfort. Much education today on activity mdoifcation and R rot with OP and c/s ret/ext with OP both 10x 3x/day at [facility] Subjective Subjective: GIOVANNA LITTLE is a 63 year old F here today for neck pain. Hx fall and wrist fx ~07/2016, cervical pinched nerve. 04/2023 neck pain worsened. Hx covid19. Hx adverse reaction for RSV vaccination with headache and neck pain. 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 Episode of RLE numbness. Recent intermittent upper extremity numbness, most noted during night. Occasional B/L upper extremity weakness. Frequent tingling B/L upper and lower extremities. Dry needling at [facility] exacerbated pain. Denies hx of chiropractic treatments, physical therapy or injections. Adverse reactions to steroids. Verified this info from ortho doctor chart. Pt recently had therapy and is doing LE strength and back movements. Had to stop for a little bit due to back pain and needed lidocaine patches. Not sure what caused that. That pain persists and is more in lumbar area. Frustrated her as she felt like she was getting better It also hurts her legs. She has had this pain before a time or two. 4-/10 lately in neck. Arm symptoms feel weak and get intermittent clawing of hands and numb, tingly feeling. Sleepy feeling happens intermittently, alot at night. Activities: walking makes LB worse, sometimes neck is worsee with walking. basic ADLs all I. Retired. 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 Now that would really hurt her. Gardening is very limited last year and this year. Pain neck pain: Pain Intensity (Out of 10): 6 Pain Intensity Range: 4 and 6 Comment: L >R, neck to ear Objective Objective: 70 L rotation and 63 R with pain on L side with R rotation, 35 ext with L sided pain, retraction is limited but not painful. Posture is forward head and protracted scap and elevated scap. Tender to touch maximally in L salenes, SCM, UT and parspinals of neck, slightly on R, not in other scap mm. UE AROM WFL, reflexes 2/3 bi and tri Sensation WNL to gross light touch today. Strength is symmetrical in UE and 4-/5 throughout except B triceps 3+. No pain with these tests - c/s compression today. repeated ret/ext seems to improve R rotation with PDM today. - [facility] today Balance/Special Test Scores Oswestry Neck Score: 23 Goals Goal 1:: 55 R rotation adn 50 ext to limit future problems Goal Time Frame: 4-6 Weeks Goal 2:: Pt feel pain is 75% better at 1/10 at worst in neck and manageable Goal Time Frame: 4-6 Weeks Goal 3:: I appropriate HEP to limit future pain in neck and maximize motion and strength Goal Time Frame: 4-6 Weeks Goal 4:: oswestry score 5 or better Goal Time Frame: 4-6 Weeks Rehabilitation Potential Physical Therapy Diagnosis: neck pain discal vs joint limiting comfortable funciton Rehabilitation Potential: Fair Anticipated Interventions Patient/Client Instruction: Educate patient on: Condition and Plan of Care For the Purpose of:: To decrease pain, To increase ROM, To improve nutrient delivery to tissue and To increase tolerance to activity/condition/position Therapeutic Exercise to Include: Strength training, Flexibilty training, Passive ROM and Active ROM For the Purpose of:: To decrease pain, To increase ROM, To improve nutrient delivery to tissue, To improve muscle performance and motor function and To increase tolerance to activity/condition/position Manual Therapy Techniques to Include: Mobilization, Passive ROM and Soft tissue mobilization For the Purpose of:: To decrease pain, To increase ROM, To improve nutrient delivery to tissue, To increase tolerance to activity/condition/position and To increase flexibility/ROM Thermo therapy (hot pack): Yes For the Purpose of:: To decrease pain and To improve nutrient delivery to tissue Text: Thank you for the opportunity to evaluate your patient. For Medicare and Medicare HMO plans, please review the plan of care and approve it. It will need to be FAXED BACK to us at [phone] for Medicare purposes. For Medicare only, by signing this I certify the plan of care. Please let me know if there are questions or concerns regarding this plan of care. Physician Signature: Date:
--- NOTE | 2024-11-28 10:59 | HP.PTREVAL_ITS ---
Re-Evaluation Intro: Dr. Derrell Hollingsworth MD, It has been my pleasure to treat GIOVANNA LITTLE over the last 10 visits for neck pain. Please see the progress note below for an update on the physical therapy plan of care! Subjective Subjective: Had visit with pain management who offered injection, pt thinking about it. We are getting someewhere slowly. Last night was a bad night with arm leg goofy feeling symptoms and does not know why. That is gone for days and then might comee back for a day. Did nothing out of the ordinary yesterday. Drove to [place]. Neck pain over the last week 01/22. It is better with ROM. Pain is less frequent, more days without much pain. Sleep is OK most nights but last night was worse. Objective Objective/Function: 68 L rotation and 72 R rotation adn 52 extension, slight pain.Improved. Pt with improved pain but hard time telling me how much. Moving well adn full of anxiety about other treatments today. strength in UE 4- without myotomal problems. Persistent intermittent neck pain and feeling of weeakness in arms and legs are frustrating for patient, recommended pain doctor treatment and then f/u for ROM check and ex progression or manual afteer that if needed, pt to call. Plan Plan Plan: recommended pain doctor treatment and then f/u for ROM check and ex progression or manual afteer that if needed, pt to call. Balance/Gait/Functional tests Balance/Special Test Scores Oswestry Neck Score: 28 Goals Goals Goal 1:: 55 R rotation adn 50 ext to limit future problems Goal Time Frame: 4-6 Weeks Goal Progress: Goal Met Goal 2:: Pt feel pain is 75% better at 1/10 at worst in neck and manageable Goal Time Frame: 4-6 Weeks Goal Progress: Progressing Goal 3:: I appropriate HEP to limit future pain in neck and maximize motion and strength Goal Time Frame: 4-6 Weeks Goal Progress: Goal Met Goal 4:: oswestry score 5 or better Goal Time Frame: 4-6 Weeks Goal Progress: Not Progressing Anticipated Interventions Anticipated Interventions Patient/Client Instruction: Educate patient on: Condition and Plan of Care For the Purpose of:: To decrease pain, To increase ROM, To improve nutrient delivery to tissue and To increase tolerance to activity/condition/position Therapeutic Exercise to Include: Strength training, Flexibilty training, Passive ROM and Active ROM For the Purpose of:: To decrease pain, To increase ROM, To improve nutrient delivery to tissue, To improve muscle performance and motor function and To increase tolerance to activity/condition/position Manual Therapy Techniques to Include: Mobilization, Passive ROM and Soft tissue mobilization For the Purpose of:: To decrease pain, To increase ROM, To improve nutrient delivery to tissue, To increase tolerance to activity/condition/position and To increase flexibility/ROM Thermo therapy (hot pack): Yes For the Purpose of:: To decrease pain and To improve nutrient delivery to tissue Re-Evaluation Ending Re-evaluation ending: Please do not hesitate to contact me at [phone] by phone or if you have questions or concerns regarding this new plan of care! Sincerely, Armando Miranda, DPT, OCS, CSCS
--- NOTE | 2025-01-22 13:26 | HP.PT.NRP ---
Patient Information Patient Information: GIOVANNA LITTLE was seen in my office for initial evaluation on 11/05/24. The following Plan of Care was established for this patient: POC Established Initial Frequency: 2-3x /Week Initial Duration: 4-6 Weeks Anticipated Interventions Patient/Client Instruction: Educate patient on: Condition and Plan of Care For the Purpose of:: To decrease pain, To increase ROM, To improve nutrient delivery to tissue and To increase tolerance to activity/condition/position Therapeutic Exercise to Include: Strength training, Flexibilty training, Passive ROM and Active ROM For the Purpose of:: To decrease pain, To increase ROM, To improve nutrient delivery to tissue, To improve muscle performance and motor function and To increase tolerance to activity/condition/position Manual Therapy Techniques to Include: Mobilization, Passive ROM and Soft tissue mobilization For the Purpose of:: To decrease pain, To increase ROM, To improve nutrient delivery to tissue, To increase tolerance to activity/condition/position and To increase flexibility/ROM Thermo therapy (hot pack): Yes For the Purpose of:: To decrease pain and To improve nutrient delivery to tissue Last Seen Last Seen: This patient was last seen in our office 11/28/24. Pertinent comments regarding their Physical therapy will appear below: Pt seen 10 visits of POC and was 50% better. The plan was for her to f/u with pain management to see what they had to offer and then call to come back to PT if needed. It has been over a month at this point and I will discontinue since she has not returned. happy to see again in future if found appropriate by pain management. At this point I will be discontinuing this patient from physical therapy. I would be happy to see this patient again in the future if found appropriate by the physician. Thank you! Armando Miranda, DPT, OCS, CSCS Balance/Gait/Functional tests Balance/Special Test Scores Oswestry Neck Score: 28
== END 2024-11-28 19:00 | disposition home or self-care (01) ==
LOC: PT 10:00
PROVIDERS: Referring Provider Orthopaedic Surgery Orthopaedic Surgery of the Spine; Visit Provider Orthopaedic Surgery Orthopaedic Surgery of the Spine
DX: M54.2 Cervicalgia (principal)
CPT/HCPCS: 97110; 97140; 97161; 97530

== ENCOUNTER 2024-12-08 06:51 | Emergency (ER) | payer MEDICARE, SELFPAY ==
[2024-12-08 06:51] VITALS: BP 148/81; PULSE 66; RESP 14; TEMP 36.5; O2SAT 100; BMI 18.6
--- NOTE | 2024-12-08 07:13 | ED.VIS.LOWEX ---
HPI History of Present Illness Chief Complaint: Lower Extremity Injury Detail of Chief Complaint: Atraumatic pain left inguinal area/left gluteal area radiating distally to Informant: patient Occured/Mechanism Comment: Atraumatic pain left lower extremity and hip region Onset/Context/Timing Onset: Days (Patient stated she noted some pain Sunday. Was worse yesterday. ) Context: Sudden Onset Timing: Continuous Quality of Pain: Aching Location: Left inguinal area, gluteal area and thigh Current Severity: Mild Maximum Severity: Severe Worsened by: Weightbearing Relieved by: Nothing Associated Symptoms Associated Symptoms: Positive for - (Difficulty ambulating); Negative for Parasthesia, Weakness or Loss of Funtion Narrative Narrative: Patient is 64-year-old woman. She has history of hypertension on losartan. She also has history of ADHD. She stopped her medication in July. She has had slight weight gain. She denies weight loss. Denies night sweats. She denies prior injury to the hip or problems with the hip. She cannot recall any direct or indirect trauma. She denies symptoms of claudication. She has no history of autoimmune disorder. She has not noted a rash. She has not noted swelling of her hip or knee region. She denies abdominal pain. She denies nausea, vomiting diarrhea. Denies constipation. Denies change in color, caliber or consistency of her stool. She has no urologic symptoms. Prior similar symptoms: No Recent Illness/Hospitalization: No [facility] Medical History Post-menopausal Hypertension Impingement of right shoulder Right shoulder pain Physical exam, pre-employment Home Medications ?Medication ?Instructions ?Recorded ?Last Taken ?Type lidocaine 5 % topical patch 2 patch topical DAILY #15 ea 11/14/23 Unknown Rx (Lidoderm) losartan 50 mg-hydrochlorothiazide 1 tab PO DAILY 11/16/23 Unknown History 12.5 mg tablet Lactobacillus acidophilus 5,000 mmu cells PO QDAY 10/31/24 Unknown History (Acidophilus capsule) aspirin 81 mg chewable tablet 40.5 mg PO QDAY 10/31/24 Unknown History cholecalciferol (vitamin D3) 25 50 mcg PO QDAY 10/31/24 Unknown History mcg (1,000 unit) tablet cyanocobalamin (vitamin B-12) 25 50 mcg PO DAILY 10/31/24 Unknown History mcg tablet doxepin 10 mg capsule 10 mg PO QHS 10/31/24 Unknown History magnesium citrate 70 mg-potassium 1 cap PO QDAY 10/31/24 Unknown History citrate 99 mg capsule hydrocodone-acetaminophen 5-325mg 1 tab PO Q6H PRN PRN Pain 3 days 12/08/24 Unknown Rx 5mg-325mg #10 TABLETS Allergy/AdvReac Type Severity Reaction Status Date / Time Penicillins (PCN) Allergy Hives Verified 12/08/24 06:52 prednisone Allergy Unknown Verified 12/08/24 06:52 fluticasone (From Flovent AdvReac Mental Verified 12/08/24 06:52 HFA) status change Family History Mother Hypertension CVA (cerebral vascular accident) Surgical History Hx of appendectomy Social History household members: none Smoking Status: Former smoker alcohol intake: never substance use type: does not use what type of physical activity do you participate in: walking frequency: 3-4 times per week do you feel safe at home: Yes ROS ROS ED Constitutional Constitutional ED: Denies chills, fever(s), subjective, sweats or weight loss Cardiovascular Cardiovascular: Denies chest pain or palpitations Respiratory/Chest Respiratory/Chest: Denies cough, dyspnea or dyspnea on exertion Gastrointestinal Gastrointestinal: Denies abdominal pain, constipation, diarrhea, nausea or vomiting Genitourinary Genitourinary ED: Reports other Details: Patient is postmenopausal. No history of vaginal bleed ; Denies dysuria, hematuria or urinary frequency Musculoskeletal Musculoskeletal: Reports other Details: Pain left inguinal area, buttocks and thigh ; Denies arthralgias, back pain, myalgias or neck pain Integumentary Denies abscess, Abrasions or rash Neurologic Neurologic: Denies headache(s), paresthesias or weakness Hematologic/Lymphatic Hematologic/Lymphatic: Denies easy bleeding or easy bruising EXAM Physical Exam Const Vital Signs: 12/08/24 06:51 Temperature 97.7 F L Temperature Source Oral Pulse Rate 66 Respiratory Rate 14 Blood Pressure 148/81 H Blood Pressure Mean 103 Pulse Ox 100 Oxygen Delivery Method Room Air Positive well nourished and well developed General Appearance ED: well developed and NAD HEENT Reports moist mucous membranes normocephalic and atraumatic Eyes PERRL Eyes Narrative: Extract muscles intact. Sclera is anicteric. Neck full ROM and supple Resp normal respiratory effort and no retractions Cardio regular rate and regular rhythm GI non-tender, non-distended and no masses Inspection: Negative for abdominal distention Auscultation: normoactive bowel sounds Palpation: soft Narrative: Patient has no pain to palpation left inguinal area. Femoral pulses palpable. There is no inguinal lymphadenopathy or mass. There are no dermatologic lesions noted. Back/Spine no CVA tenderness Thoracic Spine / Upper Back: thoracic spinal tenderness Lumbar Spine / Lower Back: lumbar spinal tenderness Extremity normal to inspection and full ROM Extremity Narrative: There is no asymmetry, swelling, discoloration, leg vein distention, palpable cords or tenderness along the distribution of the deep venous system. Jonathan Jodi 4 test causes discomfort in the inguinal area. When I went to straighten out the leg patient began to scream and complain of severe pain in the inguinal area. Observed patient gait. She does have a limp. She is reluctant to bear weight left lower extremity. She is able to with difficulty walk on her heels and toes. She is not dragging her foot. Neuro oriented x3, CN's II-XII intact bilaterally, moves all extremities and no sensory deficits noted Neuro Narrative: EHLs intact. Patella and ankle reflex are symmetric. There is no clonus Babinski sign noted on the left. Sensorium / Orientation: alert Motor Exam: strength 5/5 throughout Psych mental status grossly normal Skin no wounds Lesions: no lesions Rashes: no rashes MDM MDM MDM Narrative Medical decision making narrative: Suspect this is muscle skeletal. Since patient having difficulty ambulating will obtain x-ray to determine if there is any bony abnormality. Of note patient states she has never been on steroids. This would make avascular necrosis of the femoral heads very unlikely. This may represent osteo arthritis as well. With history of no trauma fracture is unlikely unless it is a pathologic. Workup included x-ray, blood work to assess for anemia, hypo or hypercalcemia elevated alkaline phosphatase that would indicate that there is a bony abnormality. Inflammatory markers were obtained as well. Doubt this to be crystal induced or pyogenic arthritis. History & Record Review Additional record(s) reviewed:: Prior outpatient record (Patient had x-rays and MRI of her spine at [facility]. Reports that were scanned October 17, 2024 were reviewed. Lumbar spondylosis noted. There is foraminal narrowing greatest on the left at L4 and 5. And may contribute to radiculopathy. No high-grade spinal stenosis was noted. There is mi) and Prior ED visit (Patient seen November 2023 for upper extremity injury. Note was authored by Dr. Rcihard Ceja. Patient was treated with Lidoderm patch.) Lab Data Attestation: I reviewed the patient's lab results. Lab results narrative: CBC is unremarkable. Comprehensive metabolic panel is normal including calcium and alkaline phosphatase. ESR is 5, which is normal. Labs: Laboratory Results - last 24 hr 12/08/24 07:12 WBC 4.6 RBC 4.09 L Hgb 12.7 Hct 37.9 MCV 92.7 MCH 31.1 MCHC 33.5 RDW Std Deviation 38.1 RDW Coeff of Baudilio 11.4 L Plt Count 294 MPV 9.0 Immature Gran % (Auto) 0.400 Neut % (Auto) 45.1 L Lymph % (Auto) 35.9 [place] % (Auto) 12.7 H Eos % (Auto) 4.8 Baso % (Auto) 1.1 H Absolute Neuts (auto) 2.1 Absolute Lymphs (auto) 1.64 Nucleated RBC % 0 ESR 5 Sodium 143 Potassium 3.4 Chloride 106 Carbon Dioxide 27.7 Anion Gap 9 BUN 10 Creatinine 0.65 L Estim Creat Clear Calc 52.79 Est GFR (MDRD) Non-Af 98 BUN/Creatinine Ratio 14.7 Glucose 95 Calcium 9.1 Total Bilirubin 0.33 AST 30 ALT 20 Alkaline Phosphatase 67 Total Protein 6.4 Albumin 3.9 Globulin 2.6 Albumin/Globulin Ratio 1.5 Radiography Chest X-Ray - ED: Read by ED Physician (Three-view x-ray of the left hip was independent reviewed interpreted by me at 0746. Patient has minimal arthritic changes. There is no asymmetry of the left hip joint compared to the right. There is no evidence of fracture, subluxation or dislocation. There is no lytic lesions noted.) Diagnostic Testing: Clinical Impression(s) from Imaging Studies Hip/Pelvis X-Ray 12/08/24 07:30 IMPRESSION: No fracture or dislocation. 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 P.o. Tylenol was ordered. Since patient has exquisite pain with certain types of movement suspect this is musculoskeletal. Patient apparently took muscle relaxer and she was prescribed by her doctor. She states that did not help. Patient was prescribed open analgesia and instructed to take ibuprofen as well. She was discharged to home in stable condition. She also received crutches because she cannot bear weight. In my opinion this is all musculoskeletal. Discharge Plan Triage Chief Complaint: Lower Extremity Injury ED Provider: Sheng Ward Dx/Rx/DC Orders Clinical Impression: Muscle strain of left gluteal region, Muscle strain of left lower extremity, Difficulty in walking, Elevated blood pressure reading with diagnosis of hypertension Instructions: ED Muscle Strain, Extremity Prescriptions: New hydrocodone-acetaminophen 5-325 mg tablet 1 tab PO Q6H PRN PRN (Reason: Pain) 3 Days Qty: 10 0RF No Action losartan-hydrochlorothiazide 50-12.5 mg tablet 1 tab PO DAILY cyanocobalamin (vitamin B-12) 25 mcg tablet 50 mcg PO DAILY doxepin 10 mg capsule 10 mg PO QHS aspirin 81 mg tablet,chewable 40.5 mg PO QDAY cholecalciferol (vitamin D3) 25 mcg (1,000 unit) tablet 50 mcg PO QDAY mag citrate-potassium citrate 70-99 mg capsule 1 cap PO QDAY Acidophilus Capsule 5,000 mmu cells PO QDAY lidocaine [Lidoderm] 5 % adhesive patch,medicated 2 patch topical DAILY Qty: 15 0RF Rx Instructions: leave on most painful area for up to 12 hrs Primary Care Provider: Christina Boykin Referrals: Christina Boykin MD [Primary Care Provider] - Activity Restrictions/Additional Instructions: 1. Apply ice to your left groin and buttocks area 6-8 times a day 2. You may take half of a tablet initially since you are reluctant to take pain medicine and determine how this affects you. 3. Recommend repeat ibuprofen tablets every 8 hours or 2 Aleve tablets every 12 hours for the next 3 to 5 days. 4. Bear weight as tolerated Print Language: Dominican Disposition Disposition: Home, Self Care
[2024-12-08 07:28] LABS: Absolute Lymphocyte Count 1.64 X10^3/uL (0.83-4.51); Absolute Neutrophil Count 2.1 X10^3/uL (2.0-7.7); Basophil# 0.05 X10^3/uL; Basophil% 1.1 % (0-1); Eosinophil# 0.22 X10^3/uL; Eosinophils% 4.8 % (0-5); Hematocrit 37.9 % (37-47); Hemoglobin 12.7 g/dL (12.0-15.0); Lymphocyte # 1.64 X10^3/ul (0.83-4.51); Lymphocyte % 35.9 % (19-41); Mean Corp Hgb Conc 33.5 g/dL (32-36); Mean Corpuscular Hgb 31.1 pg (27.0-32.0); Mean Corpuscular Volume 92.7 fL (81-99); Monocyte# 0.58 X10^3/uL; Monocyte% 12.7 % (0-10); NRBC Flagged by Analyzer 0 % (0-5); Neutrophil # 2.06 X10^3/uL (2.7-7.7); Neutrophil % 45.1 % (47-70); Platelet Count 294 K/mm3 (150-450); RBC Distribution Width CV 11.4 % (11.6-14.6); RBC Distribution Width SD 38.1 fl (35.1-43.9); Red Blood Count 4.09 M/mm3 (4.2-5.4); White Blood Count 4.6 K/mm3 (4.4-11.0)
--- NOTE | 2024-12-08 07:30 | RAD_ITS ---
PROCEDURE: HIP, UNI W/ PELVIS 2-3 VIEWS 12/08/2024 REASON FOR EXAM: INJURY/PAIN TECHNIQUE: AP pelvis two views left hip, 3 total images COMPARISON: None available FINDINGS: No fracture or dislocation. Symmetric appearing SI joints and pubic symphysis appear within limits. The joint spaces appear within limits. Bilateral tubal ligation clips noted. RAD/HIP, UNI W/ Pelvis 2-3 Views IMPRESSION: No fracture or dislocation. Reading Location: [id number]
[2024-12-08 07:34] LABS: ALB/GLOB Ratio 1.5 RATIO (0.9-2.4); AST(SGOT) 30 U/L (<=31); Alanine Aminotransfer ALT/SGPT 20 U/L (<=34); Albumin, Serum 3.9 g/dL (3.4-4.8); Alkaline Phosphatase 67 U/L (35-104); Anion Gap 9 (5-15); BUN 10 mg/dL (4-19); BUN/Creat Ratio 14.7 RATIO (10-20); Calcium,Total 9.1 mg/dL (7.6-11.0); Carbon Dioxide 27.7 mmol/L (21.0-32.0); Chloride 106 mmol/L (98-108); Creatinine, Serum 0.65 mg/dL (0.70-1.20); EST Glomerular Filtration Rate 98 (>60); Estimated Creatinine Clearance 52.79 ml/min (50-250); Globulin 2.6 g/dL (2.2-4.2); Glucose 95 mg/dL (70-99); Potassium 3.4 mmol/L (3.3-5.1); Protein, Total 6.4 g/dL (5.9-8.4); Sodium Level 143 mmol/L (133-145); Total Bilirubin 0.33 mg/dL (0.00-1.30)
[2024-12-08] MEDS: Acetaminophen 325 MG Tablet 650 MG PO (07:55)
[2024-12-08 09:20] LABS: Erythrocyte Sedimentation Rate 5 mm/hr (0-30)
[2024-12-08 10:00] VITALS: BP 141/78; PULSE 77; RESP 19; TEMP 36.6; O2SAT 97
--- NOTE | 2024-12-08 10:26 | ED.RN ---
PT REQUESTING TO TALK TO DR. FINCH UPDATED AND IN ROOM
== END 2024-12-08 10:59 | disposition home or self-care (01) ==
PROVIDERS: Emergency Provider Emergency Medicine; PCP Family Medicine Sports Medicine; Visit Provider Emergency Medicine
DX: S76.012A Strain of muscle, fascia and tendon of left hip, initial encounter (principal); S86.912A Strain of unspecified muscle(s) and tendon(s) at lower leg level, left leg, initial encounter; M48.061 Spinal stenosis, lumbar region without neurogenic claudication; M47.816 Spondylosis without myelopathy or radiculopathy, lumbar region; I10 Essential (primary) hypertension; R26.2 Difficulty in walking, not elsewhere classified; X58.XXXA Exposure to other specified factors, initial encounter; Z87.891 Personal history of nicotine dependence
CPT/HCPCS: 73502; 80053; 85025; 85652; 96374; 96375; 99285; A4216; J2405

== ENCOUNTER → 2025-03-05 | Outpatient (CLI) | payer MEDICARE, SELFPAY ==
[2025-03-05 15:16] LABS: Hematocrit 40.9 % (37-47); Hemoglobin 13.8 g/dL (12.0-15.0); Immature Granulocytes Count 0.010 X10^3/uL (0.0-0.0); Mean Corp Hgb Conc 33.7 g/dL (32-36); Mean Corpuscular Volume 91.3 fL (81-99); Mean Platelet Vol. 10.7 fl (6.2-12.0); NRBC Flagged by Analyzer 0 % (0-5); Platelet Count 237 K/mm3 (150-450); RBC Distribution Width CV 11.7 % (11.6-14.6); RBC Distribution Width SD 38.7 fl (35.1-43.9); Red Blood Count 4.48 M/mm3 (4.2-5.4); White Blood Count 6.7 K/mm3 (4.4-11.0)
== END | disposition home or self-care (01) ==
LOC: MTLAB 11:41
PROVIDERS: PCP Family Medicine Sports Medicine; Referring Provider Ophthalmology; Visit Provider Ophthalmology
DX: R23.3 Spontaneous ecchymoses (principal)
CPT/HCPCS: 36415; 85025

== ENCOUNTER → 2025-03-18 | Outpatient (CLI) | payer MEDICARE, SELFPAY ==
--- NOTE | 2025-03-18 13:50 | MRI_ITS ---
PROCEDURE: LOWER EXT JOINT ONLY (ROUTINE) 03/18/2025 REASON FOR EXAM: PAIN, MEDIAL SIDE ? MM TEAR, MILD OA TECHNIQUE: Procedure Code: MRILEJ Modality: MR Procedure: LOWER EXT JOINT ONLY (ROUTINE) Multiplanar and multisequence images were obtained without IV contrast administration. COMPARISON: COMPARISON : None FINDINGS: Femorotibial: There is genu recurvatum. There is no positive MR drawer sign. Proximal tibiofibular congruency is maintained. Small knee joint effusion with fluid decompressing into the suprapatellar bursa. No hemarthrosis or lipohemarthrosis seen. Patellofemoral: Patellar height is slight Aisha. Axial patellofemoral alignment is anatomic. The femoral trochlea is well formed without dysplasia. The patellar retinacula are intact. No thickened medial parapatellar plica. Bone marrow: Bone marrow is unremarkable for the patient's age. No evidence of red marrow reconversion. No suspicious bone lesion is seen. No bone marrow edema to suggest an acute osseous injury. Hyaline cartilage: Articular cartilage at the femorotibial joints is preserved. There is no visible full-thickness articular cartilage loss or significant chondromalacia seen. Patellofemoral cartilage appears preserved without evidence of full-thickness articular cartilage loss seen. Extensor mechanism: The extensor mechanism is intact. Fat pad: There is mild edema along the free edge of Hoffa's fat pad. No cyclops lesion. Bursa: No prepatellar bursitis. No superficial or significant deep infrapatellar bursitis. No pes anserinus bursitis. Soft tissues: There is a partially decompressed 7 cm Brumfield's cyst in the popliteal fossa with fluid extending inferior to the level of imaging along the posteromedial calf. Mild soft tissue edema is seen within the popliteal fossa. No other fluid collection is seen around the knee. Muscle: Muscle quality is preserved. There is no asymmetric atrophy. No appearance of acute muscle strain. Cruciate ligaments: The anterior cruciate ligament is intact, however there is fluid signal between fibers of the posterior proximal anterior cruciate ligament over a length of 2.1 cm consistent with partial ganglion transformation. The posterior cruciate ligament is intact. Collateral ligaments: The medial collateral ligament is intact. The lateral collateral ligament, popliteus tendon origin, biceps femoris attachment and iliotibial bands are intact. Lateral meniscus: The lateral meniscus is not discoid. There is no lateral meniscal tear. Lateral meniscal roots are intact. Lateral meniscal fascicular attachments are maintained. Medial meniscus: The medial meniscus is morphologically within normal limits. No medial meniscal tear is seen. Medial meniscal roots are intact. No MR evidence of medial meniscal capsular separation. MRI/Lower Ext Joint Only (Routine) IMPRESSION: Partially ruptured 7 cm Brumfield's cyst in the popliteal fossa. - The knee is held in genu recurvatum. - Mild fluid signal within the posterior proximal ACL fibers consistent with part ial ACL ganglion formation. - There is no meniscal tear. - Other findings discussed above in detail. Reading Location: [facility]
--- NOTE | 2025-03-18 13:50 | MRI_ITS ---
PROCEDURE: UPPER EXT JOINT ONLY(ROUTINE) 03/18/2025 REASON FOR EXAM: PAIN, FAILED PT, ONGOIGN PAIN. TECHNIQUE: Procedure Code: MRIUEJ Modality: MR Procedure: UPPER EXT JOINT ONLY(ROUTINE) Multiplanar and multisequence images were obtained without IV contrast administration. COMPARISON: none FINDINGS: The supraspinatus tendon shows intrasubstance high signal abutting its articular surface. No evidence of complete fibers interruption. Thickening and intrasubstance high signal of the subscapularis tendon. No evidence of complete fibers interruption. The teres minor and infraspinatus tendons appear intact. High signal of the intra-articular segment of the long head of biceps tendon. High signal of the bicipital labral anchor, possibly degenerative. No obvious glenoid labral tears. Degenerative arthropathic changes of the acromioclavicular joint evident by marginal osteophytic lipping, cortical irregularities, pseudocystic changes and subcortical marrow edema of its opposing articular surfaces with hypertrophied edematous joint capsule inducing subacromial impingement. Intact glenohumeral joint. Mild glenohumeral joint effusion Minimal fluid signal distending the subcoracoid and subacromial/subdeltoid bursa. Focal cortical irregularities and subcortical pseudocysts humeral head/greater tuberosity. No marrow infiltrative lesions. The neurovascular bundles appear unremarkable. 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 Supraspinatus tendonitis with partial thickness tear. Subscapularis tendonitis. Tendonitis of the long head of biceps tendon. Mild glenohumeral joint effusion with subcoracoid and subacromial/subdeltoid bu rsitis. Reading Location: [facility]
--- OUTSIDE RECORDS SUMMARY | 2025-03-18 23:46 | XMS RPT_ITS | CCD ---
Author Organization [facility] Care Team Providers Care Medical Examiner Name Role Phone Hortencia Love DO Primary Care Provider Ebonie FRAZIER, Michael Primary Care Provider Jewell Ruiz MD Unavailable Unavailable Hortencia Love DO Primary Care Provider [phone] Colin FRAZIER, Jocelynn Primary Care Provider Ashutosh FRAZIER, Leonarda Primary Care Provider FLYNN, MICHAEL Referring Unavailable FLYNN, MICHAEL Primary Care Unavailable DISTEL, LEONARDA Referring Unavailable DISTEL, LEONARDA Primary Care Unavailable DISTEL, LEONARDA Referring Unavailable FLYNN, MICHAEL Primary Care Unavailable FLYNN, MICHAEL Primary Care Unavailable JANIS LOPEZ Admitting Unavailable ALCH, ZOROASTRIANISM Attending Unavailable FLYNN, MICHAEL Primary Care Unavailable JUAN PATHAK Attending Unavailable Khushi Dawkins PA-C Unavailable DISTEL, LEONARDA Primary Care Unavailable DISTEL, LEONARDA Referring Unavailable FLYNN, MICHAEL Primary Care Unavailable ALCH, ZOROASTRIANISM Referring Unavailable CARLOTTA ARCHER Attending Unavailable DISTEL, LEONARDA Referring Unavailable FLYNN, MICHAEL Primary Care Unavailable DISTEL, LEONARDA Attending Unavailable FLYNN, MICHAEL Primary Care Unavailable SELF Referring Unavailable AWILDA DARBY Referring Unavailable FLYNN, MICHAEL Primary Care Unavailable PIERRE MONTGOMERY Attending Unavailable RAJEEV HODGE Referring Unavailable FLNYN, MICHAEL Primary Care Unavailable PIERRE MONTGOMERY Attending Unavailable RAJEEV HODGE Referring Unavailable FLYNN, MICHAEL Primary Care Unavailable VALENTINAPIERRE Attending Unavailable DISTEL, LEONARDA Primary Care Unavailable DISTEL, LEONARDA Attending Unavailable DISTEL, LEONARDA Primary Care Unavailable DISTEL, LEONARDA Attending Unavailable DISTEL, LEONARDA Attending Unavailable SELF Referring Unavailable FLYNN, MICHAEL Primary Care Unavailable FLYNN, MICHAEL Attending Unavailable SELF Referring Unavailable FLYNN, MICHAEL Primary Care Unavailable FLYNN, MICHAEL Primary Care Unavailable STARR HAINES Attending Unavailable FLYNN, MICHAEL Primary Care Unavailable GIANNI, CARLOTTA Y Attending Unavailable FLYNN, MICHAEL Primary Care Unavailable STARR HAINES R Attending Unavailable FLYNN, MICHAEL Primary Care Unavailable SELF Referring Unavailable FLYNN, MICHAEL Primary Care Unavailable SELF Referring Unavailable STARR HAINES Attending Unavailable RAJEEV HODGE Attending Unavailable THI MOSS Referring Unavailable FLYNN, MICHAEL Primary Care Unavailable DISTEL, LEONARDA Attending Unavailable FLYNN, MICHAEL Referring Unavailable FLYNN, MICHAEL Primary Care Unavailable DISTEL, LEONARDA Primary Care Unavailable GIANNI, CARLOTTA Y Attending Unavailable RAJEEV HODGE C Referring Unavailable FLYNN, MICHAEL Primary Care Unavailable PIERRE MONTGOMERY Attending Unavailable AYESHA, RAJEEV C Referring Unavailable FLYNN, MICHAEL Primary Care Unavailable PIERRE MONTGOMERY Attending Unavailable AWILDA DARBY Referring Unavailable FLYNN, MICHAEL Primary Care Unavailable PIERRE MONTGOMERY Attending Unavailable DISTEL, LEONARDA Primary Care Unavailable FLYNN, MICHAEL Referring Unavailable FLYNN, MICHAEL Primary Care Unavailable FLYNN, MICHAEL Primary Care Unavailable GIANNI, CARLOTTA Y Referring Unavailable DISTEL, LEONARDA Primary Care Unavailable SHI MONTENEGRO Attending Unavailable DISTEL, LEONARDA Primary Care Unavailable FLYNN, MICHAEL Referring Unavailable DONNA MCNEIL Attending Unavailable DISTEL, LEONARDA Primary Care Unavailable DISTEL, LEONARDA Attending Unavailable SELF Referring Unavailable Generic Provider MD, No Assigned Pcp Primary Car e Provider Unavailable GENERIC PROVIDER, NO ASSIGNED PCP Primary Care Unavailable Distel, Leonarda Primary Care Unavailable Juliano Alatorre Attending Unavailable Juliano Alatorre Referring Unavailable Distel, Leonarda Primary Care Unavailable Ward, Sheng Attending Unavailable Ronda German Attending Unavailable Ronda German Referring Unavailable Distel, Leonarda Primary Care Unavailable Juliano Alatorre Consulting Unavailable Distel, Leonarda Primary Care Unavailable Ilan Alcaraz Attending Unavailable Ilan Alcaraz Referring Unavailable Arpit Alvarez Attending Unavailable Care Physician, No Primary Primary Care Unava ilable Distel, Leonarda Primary Care Unavailable Distel, Leonarda Referring Unavailable Juliano Alatorre Attending Unavailable Ronda German Attending Unavailable Distel, Leonarda Primary Care Unavailable Distel, Leonarda Referring Unavailable Care Physician, No Primary Primary Care Unava ilable Derrell Hollingsworth Attending Unavailable Distel, Leonarda Referring Unavailable Distel, Leonarda Primary Care Unavailable Juliano Alatorre Attending Unavailable Arpit Alvarez Attending Unavailable Distel, Leonarda Primary Care Unavailable Care Physician, No Primary Primary Care Unava ilable Care Physician, No Primary Referring Unava ilable Derrell Hollingsworth Attending Unavailable DANYELL LEBRON Referring Unavailable DANYELL LEBRON Attending Unavailable Care Physician, No Primary Primary Care Unava ilable Care Physician, No Primary Primary Care Unava ilable Derrell Hollingsworth Attending Unavailable Derrell Hollingsworth Referring Unavailable Davidson Mack Attending Unavailable Davidson Mack Referring Unavailable Care Physician, No Primary Primary Care Unava ilable Allergies Allergy Classification Reported Allergen(s) Allergy Type Date of Onset Reaction(s) Facility Corticosteroids (4 sources) fluticasone Drug Allergy 6 Other: See Comments, Mental Status Change [facility] Penicillins (antibiotic) (2 sources) Penicillins Drug Allergy 6 Rash [facility] (20 sources) fluticasone; Translations: [FLUTICASONE PROPIONATE] Drug Allergy 0 Other: See Comments, Other [facility] (9 sources) Penicillins; Translations: [PENICILLINS] Drug Allergy 6 Rash [facility] (20 sources) predniSONE; Translations: [PREDNISONE] Drug Allergy 6 Mental Status Change, Other [facility] (20 sources) Penicillins Drug Allergy 6 Rash [facility] (7 sources) Penicillins Drug Allergy 6 Rash, Unknown [facility] (1 source) fluticasone Drug Allergy 5 [facility] (1 source) Penicillins Drug allergy (disorder) 5 [facility] (1 source) predniSONE Drug Allergy 5 [facility] Medications Current Medications Medication Drug Class(es) Dates Sig (Normalized) Sig (Original) aspirin 81 mg delayed release oral tablet (12 sources) Platelet Aggregation Inhibitor, Nonsteroidal Anti-inflammatory Drug aspirin 81 mg EC tablet Take 40.5 mg by mouth once daily. Active take 0.5 tablet by mouth once da benito aspirin, enteric coated (ASPIRIN, ENTERIC COATED) 81 mg EC tablet Take 81 mg by mouth once daily. 1/2 tablet daily Active baclofen 5 mg oral tablet (20 sources) gamma-Aminobutyric Acid-ergic Agonist Start: 02-18-2024 End: 08-25-2024 take 1 tablet by mouth every twelve hours as needed baclofen 5 mg tablet Take 1 tablet by mouth two times a day as needed (headache/neck pain). 60 tablet 1 02/18/2024 04/18/2024 Active Start: 01-15-2024 End: 01-29-2024 take 1 tablet by mouth every eight hours as needed baclofen 5 mg tablet Take 1 tablet by mouth three times a day as needed (headache/neck pain) for up to 14 days. 42 tablet 0 01/15/2024 01/29/2024 Active benoxinate hydrochloride 4 mg/ml / fluorescein sodium 3 mg/ml ophthalmic solution (2 sources) Diagnostic Dye Start: 02-27-2024 End: 02-27-2024 fluorescein-benoxinate 0.3-0.4 % 1 Drop (FLURESS) cholecalciferol, vitamin D3, (VITAMIN D3 50 MCG, 2,000 UNIT, GUMMIES) (12 sources) cholecalciferol, vitamin D3, (VITAMIN D3 50 MCG, 2,000 UNIT, GUMMIES) Active cyanocobalamin, vitamin B-12, (VITAMIN B-12 ORAL) (8 sources) cyanocobalamin, vitamin B-12, (VITAMIN B-12 ORAL) Take by mouth. Gummie Active doxepin hydrochloride 10 mg oral capsule (14 sources) Tricyclic Antidepressant Start: 09-17-2024 doxepin (SINEquan) 10 mg capsule Take 1 capsule (10 mg) by mouth as needed at bedtime. 09/17/2024 Active Start: 05-09-2022 End: 01-08-2023 take 1 capsule by mouth every twenty-four hours as needed doxepin capsule 10 mg Take 10 mg by mouth at bedtime as needed. 0 05/09/2022 01/08/2023 Discontinued (Course of therapy completed) Comment on above: Take 10 mg by mouth at bedtime as needed. doxycycline hyclate 100 mg oral tablet (3 sources) Tetracycline-class Drug Start : 09-09 End: 09-16 take 1 tablet by mouth twice daily doxycycline (VIBRA-TABS) 100 mg tablet Indications: Acute otitis media, left , Bacterial sinusitis Take 1 tablet by mouth two times a day for 7 days. 14 tablet 09/09/2024 09/16/2024 Active fluorometholone 1 mg/ml ophthalmic suspension (2 sources) Corticosteroid Start : 04-23 End: 05-07 fluorometholone (FML LIQUID FILM) 0.1 % ophthalmic suspension Use 1 Drop in both eyes two times a day for 14 days. 5 mL 04/23/2024 05/07/2024 Active hydroCHLOROthiazide 12.5 mg / losartan potassium 50 mg oral tablet (20 sources) Thiazide Diuretic, Angiotensin 2 Receptor Alli Start : 05-08 End: 02-10 take 1 tablet by mouth once daily losartan-hydrochlor othiazide (Hyzaar) 50-12.5 mg tablet Take 1 tablet by mouth once daily. 02/10/2025 02/10/2026 Active Comment on above: Take 1 tablet by ramona th once daily. iv contrast (will be provided with radiology test) (1 source) Start : 12-16 End: 12-17 inject 1 dose intravenously once iv contrast (will be provided with radiology test) MRI Brain Inject, intravenously, once for 1 dose.No IV access, insert saline lock prior to beginning of sedation, infusion, injection of imaging exam.Discontinue saline lock post exam. If Pt. has a central line or IVAD, may access for administration according to line specific nursing protocol.Once exam is complete flush line and de-access according to line specific nursing protocol in the MR contrast administration guidelines link 1 Each 0 12/17/2023 12/18/2023 Active Lactobacillus plantarum 5 billion cell capsule (1 source) Lactobacillus plantarum 5 billion cell capsule Take 1-2 capsules by mouth once daily. Active magnesium citrate / potassium citrate (1 source) take 1 capsule by mouth once daily mag citrate-potassium citrate 70-99 mg capsule Take 1 capsule by mouth once daily. Active MECOBALAMIN, VITAMIN B12, ORAL (1 source) MECOBALAMIN, VITAMIN B12, ORAL Take 1-2 Doses by mouth once daily. (Pt takes gummies) Active meloxicam 7.5 mg oral tablet (5 sources) Nonsteroidal Anti-inflammatory Drug Start : 12-17 take 1 tablet by mouth once daily meloxicam (MOBIC) 7.5 mg tablet Take 7.5 mg by mouth once daily. 12/17/2024 Active methocarbamol 500 mg oral tablet (11 sources) Muscle Relaxant Start : 10-03 End: 01-01 take 1 tablet by mouth twice daily as needed methocarbamol (ROBAXIN) 500 mg tablet Indications: Myalgias Take 1 tablet by mouth two times a day as needed. 60 tablet 2 10/03/2024 01/01/2025 Active Start: 08-25-2024 End: 09-18-2024 take 1 tablet by mouth three times daily methocarbamol (ROBAXIN) 500 mg tablet Indications: Myalgias Take 1 tablet by mouth three times a day for 14 days. 42 tablet 09/04/2024 09/18/2024 Active nystatin 408474 unt/ml oral suspension (3 sources) Polyene Antifungal Start: 09-09-2024 End: 09-16-2024 nystatin (MYCOSTATIN) 100,000 unit/mL suspension Indications: Oral thrush Take 5 mL by mouth four times daily for 7 days. 1tsp swish in mouth for several minutes, then swallow (or expectorate) 4 times daily until gone. 140 mL 09/09/2024 09/16/2024 Active proparacaine hydrochloride 5 mg/ml ophthalmic solution (2 sources) Local Anesthetic Start: 02-27-2024 End: 02-27-2024 proparacaine 0.5 % 1 Drop (ALCAINE) Completed/Discontinued Medications Medication Drug Class(es) Dates Sig (Normalized) Sig (Original) amLODIPine 5 mg oral tablet (3 sources) Dihydropyridine Calcium Channel Alli Start: 07-15-2024 End: 07-15-2025 take 1 tablet by mouth once daily amLODIPine (NORVASC) 5 mg tablet Indications: Primary hypertension , Raynaud's disease without gangrene Take 1 tablet by mouth once daily. 90 tablet 3 07/15/2024 07/28/2024 Discontinued aspirin 81 mg / omeprazole 40 mg delayed release oral tablet (5 sources) Proton Pump Inhibitor, Platelet Aggregation Inhibitor, Nonsteroidal Anti-inflammatory Drug End: 09-24-2024 take 0.5 tablet by mouth once daily aspirin-omeprazole 81-40 mg TbID Take 81 mg by mouth once daily. Half tab daily 09/24/2024 Discontinued atomoxetine 25 mg oral capsule (20 sources) Norepinephrine Reuptake Inhibitor Start: 11-15-2023 End: 08-09-2024 take 1 capsule by mouth once daily in the morning atomoxetine (STRATTERA) 25 mg capsule Take 25 mg by mouth every morning. 11/15/2023 08/09/2024 Discontinued Start: 07-31-2016 End: 07-18-2023 atomoxetine (STRATTERA) 40 m g capsule Take by mouth. 07/31/2016 07/18/2023 Discontinued Comment on above: Take by mouth. cholecalciferol 0.05 mg oral capsule (20 sources) Vitamin D Start: End: take 1 capsule by mouth once daily Cholecalciferol, Vitamin D3, 50 mcg (2,000 unit) cap Indications: Vitamin D deficiency Take 1 capsule by mouth once daily. 01/31/2021 07/07/2024 Discontinued take 50 ug by mouth once daily c holecalciferol, vitamin D3, 25 mcg (1,000 unit) chewable gummy Take 1-2 each (25-50 mcg) by mouth once daily. Active Comment on above: Take [address] [facility] once daily. cyanocobalamin/thiamin e HCl (WESLEY-B-12 ORAL) (6 sources) End: 10-03-2024 cyanocobalamin/thiamine HCl (WESLEY-B-12 ORAL) Take by mouth. 10/03/2024 Discontinued cyanocobalamin/t hiamine HCl (WESLEY-B-12 ORAL) Take by mouth. Active DULoxetine 30 mg delayed release oral capsule (3 sources) Serotonin and Norepinephrine Reuptake Inhibitor Start: 12-23-2024 End: 03-23-2025 take 1 capsule by mouth once daily DULoxetine (CYMBALTA) 30 mg capsule Indications: Cervical stenosis of spinal canal , Lumbar spondylolysis Take 1 capsule by mouth once daily. 30 capsule 2 12/23/2024 02/04/2025 Discontinued erythromycin 0.005 mg/mg ophthalmic ointment (13 sources) Macrolide, Macrolide Antimicrobial Start: 02-27-2024 End: 07-07-2024 erythromycin (ROMYCIN) 5 mg/gram (0.5 %) ophthalmic ointment Use 1 application in both eyes daily at bedtime. 3.5 g 2 02/27/2024 07/07/2024 Discontinued FLOWFLEX COVID-19 AG HOME TEST kit (10 sources) Start: 2022 FLOWFLEX COVID-19 AG HOME TEST kit gabapentin 100 mg oral capsule (20 sources) Anti-epileptic Agent Start: 06-05-2024 End: 03-03-2025 take 1 capsule by mouth four times daily gabapentin (NEURONTIN) 100 mg capsule Take 1 capsule by mouth four times daily for 180 days. 360 capsule 1 09/04/2024 10/03/2024 Discontinued Start: 04-10-2024 End: 04-05-2025 take 1 capsule by mouth three times daily gabapentin (NEURONTIN) 100 mg capsule Take 1 capsule by mouth three times a day for 360 days. 270 capsule 3 04/10/2024 06/05/2024 Discontinued Start: 01-15-2024 End: 04-04-2024 take 1 capsule by mouth three times daily gabapentin (NEURONTIN) 100 mg capsule Take 1 capsule by mouth three times a day for 30 days. 90 capsule 03/05/2024 04/04/2024 Active inulin/cholecalciferol, D3, (FIBER GUMMIES WITH VITAMIN D3 ORAL) (2 sources) End: 10-03-2024 inulin/cholecalciferol, D3, (FIBER GUMMIES WITH VITAMIN D3 ORAL) Take by mouth. 10/03/2024 Discontinued inulin/cholecalc iferol, D3, (FIBER GUMMIES WITH VITAMIN D3 ORAL) Take by mouth. Active ketoconazole 20 mg/ml topical cream (3 sources) Azole Antifungal Start: 02-18-2021 End: 02-18-2022 ketoconazole (NIZORAL) 2 % cream Indications: Seborrheic dermatitis Apply a thin layer to affected area twice daily for 2 weeks, then once weekly for maintenance. 30 g 2 02/18/2021 02/18/2022 Comment on above: Apply a thin layer t o affected area twice daily for 2 weeks, then once weekly for maintenance. lidocaine 0.05 mg/mg medicated patch (20 sources) Antiarrhythmic, Amide Local Anesthetic Start: 11-15-2023 End: 07-07-2024 lidocaine (LIDODERM) 5 % 11/15/2023 07/07/2024 Discontinued Start: 11-15-2023 lidocaine (LID ODERM) 5 % apply 2 patches TO THE AFFECTED AREA DAILY. LEAVE ON FOR 12 HOURS AND THEN OFF FOR 12 HOURS. 0 11/15/2023 Active losartan potassium 50 mg oral tablet (3 sources) Angiotensin 2 Receptor Alli Start: 07-15-2024 End: 07-15-2025 take 1 tablet by mouth once daily losartan (COZAAR) 50 mg tablet Indications: Primary hypertension Take 1 tablet by mouth once daily. 90 tablet 3 07/15/2024 07/28/2024 Discontinued lotilaner (XDEMVY) 0.25 % ophthalmic solution (13 sources) Start: 02-27-2024 End: 07-07-2024 take 1 drop(s) into the eye(s) twice daily lotilaner (XDEMVY) 0.25 % ophthalmic solution Use 1 Drop in both eyes two times a day. 10 mL 1 02/27/2024 07/07/2024 Discontinued Start: 02-27-2024 take 1 drop(s) into the eye(s) twice daily lotilaner (XDEMVY) 0.25 % ophthalmic solution Use 1 Drop in both eyes two times a day. 10 mL 1 02/27/2024 Active mecobalamin (20 sources) End: 07-07-2024 mecobalamin (B12 ACTIVE ORAL ) Take by mouth. 07/07/2024 Discontinued mecobalamin (B12 ACTIVE ORAL) Take by mouth. Active mecobalamin (B12 ACTIVE ORAL) Take by mouth. 0 Active Comment on above: Take by mouth. multivit-min/ferrous fumarate (MULTI VITAMIN ORAL) (20 sources) End: 10-03-2024 multivit-min/ferrous fumarate (MULTI VITAMIN ORAL) Take by mouth. 10/03/2024 Discontinued multivit-min/sandra brad fumarate (MULTI VITAMIN ORAL) Take by mouth. Active multivit-min/sandra brad fumarate (MULTI VITAMIN ORAL) Take by mouth. 0 Active NIFEdipine 30 mg osmotic 24 hr extended release oral tablet (13 sources) Dihydropyridine Calcium Channel Alli Start: 08-08-2024 End: 11-06-2024 take 1 tablet by mouth once daily NIFEdipine ER (PROCARDIA XL) 30 mg 24 hr tablet Indications: Raynaud's disease without gangrene , Primary hypertension , Pain in both feet Take 1 tablet by mouth once daily. 30 tablet 1 08/08/2024 10/03/2024 Discontinued olmesartan medoxomil 20 mg oral tablet (1 source) Angiotensin 2 Receptor Alli Start: 05-07-2023 End: 05-08-2023 take 1 tablet by mouth once daily olmesartan (BENICAR) 20 mg tablet Take 1 tablet by mouth once daily. 90 tablet 0 05/07/2023 05/08/2023 Discontinued Comment on above: Take 1 tablet by ramona th once daily. OTC NUTRITIONAL SUPPLEMENT (11 sources) End: 01-08-2023 OTC NUTRITIONAL SUPPLEMENT Garden of Life, once daily womens Copper 2 mg daily Fish Oil : Super Fisol, [address] 01/08/2023 Discontinued (Course of therapy completed) End: 01-08-2023 OTC NUTRITIONAL SUPPLEMENT G cris of Life, once daily womens Copper 2 mg daily Fish Oil : Super Fisol, [address] 0 01/08/2023 Discontinued (Course of therapy completed) OTC NUTRITIONAL SUPPLEMENT Garden [employer] Life, once daily womens Copper 2 mg daily Fish Oil : Super Fisol, [address] 0 Active Comment on above: Garden of Life, once daily womens Copper 2 mg daily Fish Oil : Super Fisol, [address] perflutren lipid microspheres 1.3 mL in NaCl (PF) 0.9% 10 mL injection (DEFINITY) (5 sources) Start: 01-26-2021 End: 04-27-2022 perflutren lipid microspheres 1.3 mL in NaCl (PF) 0.9% 10 mL injection (DEFINITY) 125 ml sodium chloride 9 mg/ml prefilled syringe (5 sources) Start: 01-26-2021 End: 04-27-2022 sodium chloride 0.9 % (flush) 10 mL (BD POSIFLUSH) tretinoin 0.25 mg/ml topical cream (4 sources) Retinoid Start: 10-09-2022 End: 01-08-2023 tretinoin (RETIN-A) 0.025 % topical cream Indications: Lentigines Apply pea-sized amount to entire face once nightly. Begin 3 times weekly and and gradually increase frequency to nightly as tolerated. 45 g 4 10/09/2022 01/08/2023 Discontinued (Course of therapy completed) Comment on above: Apply pea-sized amou nt to entire face once nightly. Begin 3 times weekly and and gradually increase frequency to nightly as tolerated. triamcinolone acetonide 1 mg/ml topical cream (20 sources) Corticosteroid Start: 11-23-2023 End: 07-07-2024 triamcinolone acetonide (KENALOG) 0.1 % cream Apply twice daily to pink papules on lower legs as needed 28.4 g 2 11/23/2023 07/07/2024 Discontinued Problems Active Problems Problem Classification Problem Date Documented Da te Episodic/Chronic Attention-deficit, conduct, and disruptive behavior disorders (20 sources) Attention deficit hyperactivity disorder; Translations: [Attention-deficit hyperactivity disorder, unspecified type] Onset: 12-30-2023 Chronic Coagulation and hemorrhagic disorders (1 source) Spontaneous ecchymoses; Translations: [Spontaneous ecchymoses] Onset: 03-11-2025 Episodic Conditions associated with dizziness or vertigo (3 sources) Dizziness and giddiness; Translations: [Vertigo] Onset: 02-04-2025 02-04-2025 Episodic Essential hypertension (20 sources) Essential hypertension; Translations: [Essential (primary) hypertension] Onset: 12-30-2023 05-08-2023 Chronic Gastrointestinal hemorrhage (2 sources) Black feces; Translations: [Melena] 11-18-2024 Episodic Headache; including migraine (20 sources) New daily persistent headache; Translations: [New daily persistent headache (NDPH)] Onset: 12-28-2023 12-28-2023 Chronic Headache; including migraine (2 sources) Headache; including migraine; Translations: [Chronic intractable headache, unspecified headache type] Onset: 01-14-2024 Immunizations and screening for infectious disease (4 sources) Vaccination needed; Translations: [Encounter for immunization] Episodic Miscellaneous mental health disorders (1 source) Anxiety about body function or health; Translations: [Other symptoms and signs involving emotional state] 09-24-2024 Episodic Mood disorders (20 sources) Severe recurrent major depression; Translations: [Major depressive disorder, recurrent severe without psychotic features] Onset: 05-07-2021 05-10-2021 Chronic Mycoses (1 source) Candidiasis of mouth; Translations: [Candidal stomatitis] 09-09-2024 Episodic Neoplasms of unspecified nature or uncertain behavior (1 source) Neoplastic disease; Translations: [Neoplasm of unspecified behavior of bone, soft tissue, and skin] Episodic Nutritional deficiencies (20 sources) Vitamin D deficiency; Translations: [Vitamin D deficiency, unspecified] Onset: 01-07-2020 01-07-2020 Chronic Osteoarthritis (20 sources) Osteoarthrosis of the carpometacarpal joint of the thumb; Translations: [Unilateral primary osteoarthritis of first carpometacarpal joint, left hand] Onset: 02-07-2017 02-07-2017 Chronic Other acquired deformities (2 sources) Spondylolysis; Translations: [Spondylolysis, lumbar region] 10-03-2024 Episodic Other acquired deformities (1 source) Spondylolysis, lumbar region; Translations: [Lumbar spondylolysis] Onset: 12-23-2024 Episodic Other and unspecified benign neoplasm (2 sources) Multiple benign melanocytic nevi ; Translations: [Melanocytic nevi, unspecified] Episodic Other and unspecified benign neoplasm (1 source) Senile angioma; Translations: [Hemangioma of skin and subcutaneous tissue] 11-23-2023 Episodic Other circulatory disease (20 sources) Raynaud's disease; Translations: [Raynaud's syndrome without gangrene] Onset: 08-08-2024 07-07-2024 Chronic Other circulatory disease (2 sources) Raynaud's syndrome without gangrene; Translations: [Raynaud's disease without gangrene] Onset: 07-07-2024 Chronic Other circulatory disease (1 source) Elevated blood-pressure reading without diagnosis of hypertension; Translations: [Elevated blood-pressure reading, without diagnosis of hypertension] Episodic Other congenital anomalies (1 source) Porokeratosis; Translations: [Other specified congenital malformations of skin] 09-16-2024 Chronic Other connective tissue disease (20 sources) Muscle pain; Translations: [Myalgia and myositis, unspecified] 09-21-2005 Episodic Other connective tissue disease (1 source) Myofascial pain syndrome of neck; Translations: [Myalgia, other site] 02-18-2024 Episodic Other connective tissue disease (1 source) Spasm of cervical paraspinous muscle; Translations: [Other muscle spasm] 02-18-2024 Episodic Other connective tissue disease (1 source) Pain in both feet; Translations: [Pain in right foot] 08-08-2024 Episodic Other connective tissue disease (1 source) Myalgia, unspecified site; Translations: [Myalgias] Onset: 08-25-2024 Episodic Other connective tissue disease (1 source) Disorder of tendon; Translations: [Unspecified disorder of synovium and tendon, right thigh] 02-04-2025 Episodic Other diseases of veins and lymphatics (1 source) Disorder of vein; Translations: [Other specified disorders of veins] 10-03-2024 Episodic Other ear and sense organ disorders (1 source) Bilateral earache; Translations: [Otalgia, bilateral] 12-28-2023 Episodic Other eye disorders (4 sources) Pain of left eye; Translations: [Ocular pain, left eye] 12-17-2023 Episodic Other eye disorders (3 sources) Disorder of lacrimal gland; Translations: [Dry eye syndrome of bilateral lacrimal glands] 02-27-2024 Episodic Other eye disorders (3 sources) Meibomian gland dysfunction of bilateral eyes; Translations: [Meibomian gland dysfunction right eye, upper and lower eyelids] 02-27-2024 Episodic Other injuries and conditions due to external causes (1 source) Chilblains; Translations: [Chilblains, initial encounter] 07-05-2024 Episodic Other lower respiratory disease (2 sources) Cough; Translations: [Acute cough] 05-27-2023 Episodic Other nervous system disorders (20 sources) Complex regional pain syndrome type I of left upper limb; Translations: [Complex regional pain syndrome I of left upper limb] Onset: 01-10-2017 01-10-2017 Chronic Other nervous system disorders (20 sources) Lesion of ulnar nerve, left upper limb; Translations: [Lesion of ulnar nerve] Onset: 03-07-2017 03-07-2017 Chronic Other nervous system disorders (1 source) Other specified polyneuropathies; Translations: [Other polyneuropathy] Onset: 08-20-2024 Chronic Other nervous system disorders (1 source) Other chronic pain; Translations: [Chronic intractable headache, unspecified headache type] Onset: 01-14-2024 Chronic Other nervous system disorders (1 source) Disease of spinal cord, unspecified; Translations: [Disease of spinal cord, unspecified] Onset: 12-12-2024 Chronic Other nervous system disorders (3 sources) Facial paresthesia; Translations: [Paresthesia of skin] 10-15-2023 Episodic Other nervous system disorders (1 source) Dysesthesia of scalp; Translations: [Other disturbances of skin sensation] 11-23-2023 Episodic Other nervous system disorders (1 source) Facial neuralgia; Translations: [Other disorders of facial nerve] 12-17-2023 Episodic Other nervous system disorders (1 source) Paresthesia; Translations: [Paresthesia of skin] 09-24-2024 Episodic Other non-traumatic joint disorders (2 sources) Pain in wrist; Translations: [Pain in right wrist] Episodic Other non-traumatic joint disorders (1 source) Acute ankle pain; Translations: [Pain in right ankle and joints of right foot] Episodic Other non-traumatic joint disorders (2 sources) Disorder of shoulder; Translations: [Other specified joint disorders, right shoulder] 11-20-2023 Episodic Other non-traumatic joint disorders (20 sources) Pain in right shoulder; Translations: [Pain in joint, shoulder region] Onset: 11-20-2023 11-20-2023 Episodic Other non-traumatic joint disorders (4 sources) Hip pain; Translations: [Pain in left hip] 12-23-2024 Episodic Other non-traumatic joint disorders (1 source) Pain in right hip; Translations: [Right hip pain] Onset: 02-04-2025 Episodic Other non-traumatic joint disorders (2 sources) Pain in left hip; Translations: [Left hip pain] Onset: 12-17-2024 Episodic Other non-traumatic joint disorders (2 sources) Pain in left knee; Translations: [Pain in left knee] Onset: 03-03-2025 Episodic Other nutritional; endocrine; and metabolic disorders (3 sources) Weight loss; Translations: [Abnormal weight loss] 05-27-2023 Episodic Other screening for suspected conditions (not mental disorders or infectious disease) (8 sources) Patient encounter status; Translations: [Encounter for screening mammogram for malignant neoplasm of breast] Episodic Other skin disorders (3 sources) Skin lesion; Translations: [Disorder of the skin and subcutaneous tissue, unspecified] Episodic Other skin disorders (1 source) Finding of color of skin; Translations: [Other skin changes] Episodic Other skin disorders (2 sources) Seborrheic keratosis; Translations: [Other seborrheic keratosis] Episodic Other skin disorders (2 sources) Lentiginosis; Translations: [Other melanin hyperpigmentation] Episodic Other skin disorders (1 source) Disorder of scalp; Translations: [Other skin changes] 05-27-2023 Episodic Other skin disorders (1 source) Eruption; Translations: [Rash and other nonspecific skin eruption] 11-24-2023 Episodic Other skin disorders (1 source) Multiple actinic keratoses; Translations: [Actinic keratosis] 11-24-2023 Episodic Other upper respiratory infections (1 source) Bacterial sinusitis; Translations: [Chronic sinusitis, unspecified] 09-09-2024 Chronic Other upper respiratory infections (1 source) Sore throat symptom; Translations: [Acute pharyngitis, unspecified] 12-28-2023 Episodic Otitis media and related conditions (1 source) Acute left otitis media; Translations: [Otitis media, unspecified, left ear] 09-09-2024 Episodic Residual codes; unclassified (1 source) Intolerant of cold; Translations: [Other general symptoms and signs] 08-25-2024 Episodic Residual codes; unclassified (1 source) Other general symptoms and signs; Translations: [Cold intolerance] Onset: 08-25-2024 Episodic Spondylosis; intervertebral disc disorders; other back problems (20 sources) Cervical radiculopathy; Translations: [Radiculopathy, cervical region] Onset: 01-08-2017 01-08-2017 Episodic Sprains and strains (1 source) Strain of muscle, fascia and tendon of left hip, initial encounter; Translations: [Strain of muscle, fascia and tendon of left hip, initial encounter] Onset: 12-17-2024 Episodic Substance-related disorders (20 sources) Tobacco dependence in remission; Translations: [Nicotine dependence, unspecified, in remission] Onset: 01-07-2020 01-07-2020 Chronic Superficial injury; contusion (3 sources) Contusion of right eyelid and periocular area, initial encounter; Translations: [Contusion of eyelids and periocular area] Onset: 03-05-2025 03-05-2025 Episodic Unclassified (1 source) Periorbital ecchymosis of right eye, initial encounter 03-05-2025 Unclassified (1 source) Low back pain, unspecified; Translations: [Low back pain, unspecified] Onset: 01-09-2025 Past or Other Problems Problem Classification Problem Date Documented Date Episodic/Chronic Abdominal pain (1 source) Unspecified abdominal pain; Translations: [Unspecified abdominal pain] Onset: 12-01-2024 Episodic Anxiety disorders (20 sources) Mixed anxiety and depressive disorder; Translations: [Other specified anxiety disorders] Onset: 11-19-2015 Resolved: 03-17-2021 07-11-2021 Chronic Blindness and vision defects (1 source) Visual discomfort, unspecified; Translations: [Photophobia] Onset: 01-14-2024 Episodic Fluid and electrolyte disorders (4 sources) Hyperkalemia; Translations: [Hyperkalemia] Onset: 01-14-2024 05-08-2023 Episodic Fracture of upper limb (20 sources) Closed fracture of distal end of left radius; Translations: [Unspecified fracture of the lower end of left radius, initial encounter for closed fracture] Onset: 08-21-2016 Resolved: 07-02-2018 07-02-2018 Episodic Headache; including migraine (20 sources) Headache; Translations: [New onset of headaches after age 50] Onset: 01-14-2024 12-17-2023 Episodic Nutritional deficiencies (20 sources) Cobalamin deficiency; Translations: [Deficiency of other specified B group vitamins] Onset: 01-07-2020 01-07-2020 Episodic Other connective tissue disease (20 sources) Lateral epicondylitis of left humerus; Translations: [Lateral epicondylitis, left elbow] Onset: 03-07-2017 03-07-2017 Episodic Other connective tissue disease (1 source) Pain in right foot; Translations: [Pain in both feet] Onset: 08-25-2024 Episodic Other connective tissue disease (1 source) Pain in left foot; Translations: [Pain in both feet] Onset: 08-25-2024 Episodic Other nervous system disorders (20 sources) Paresthesia of upper limb; Translations: [Anesthesia of skin] Onset: 05-30-2017 05-30-2017 Episodic Other nervous system disorders (20 sources) Numbness of face; Translations: [Anesthesia of skin] Onset: 12-30-2023 12-30-2023 Episodic Other nervous system disorders (1 source) Anesthesia of skin; Translations: [Left facial numbness] Onset: 01-14-2024 Episodic Other non-traumatic joint disorders (20 sources) Shoulder stiff; Translations: [Stiffness of unspecified shoulder, not elsewhere classified] Onset: 11-16-2016 11-16-2016 Episodic Other non-traumatic joint disorders (20 sources) Pain of left wrist; Translations: [Pain in left wrist] Onset: 05-16-2017 05-16-2017 Episodic Other non-traumatic joint disorders (20 sources) Chronic pain of left upper limb; Translations: [Pain in left shoulder] Onset: 05-16-2017 05-16-2017 Episodic Other non-traumatic joint disorders (20 sources) Pain in elbow; Translations: [Pain in left elbow] Onset: 05-30-2017 05-30-2017 Episodic Residual codes; unclassified (20 sources) Tobacco use and exposure - finding; Translations: [Tobacco use] Onset: 10-20-2013 Resolved: 01-07-2020 01-07-2020 Episodic Results Test Name Value Interpretation Reference Range Facil ity Basic metabolic 2000 panelon 03-05-2025 Anion gap [Moles/Vol] 7 mmol/L Low 10 - 20 mmol/L [facility] Calcium [Mass/Vol] 9.3 mg/dL 8.6 - 10. 3 mg/dL [facility] Chloride [Moles/Vol] 104 mmol/L 98 - 107 mmol/L [facility] CO2 [Moles/Vol] 32 mmol/L 21 - 32 mmol/L [facility] Creatinine [Mass/Vol] 0.63 mg/dL 0.50 - 1.05 mg/dL [facility] eGFR - PINF [facility] Comment on above: Calculations of luis mated GFR are performed using the 2020 CKD-EPI Study Refit equation without the race variable for the IDMS-Traceable creatinine methods. https://jasn.asnjournals.org/content//ASN.435532314 8 Glucose [Mass/Vol] 98 mg/dL 74 - 99 mg/dL [facility] Interpretation and review of laboratory results Abnormal [facility] Potassium [Moles/Vol] 3.4 mmol/L Low 3.5 - 5.3 mmol/L [facility] Sodium [Moles/Vol] 140 mmol/L 136 - 145 mmol/L [facility] Urea nitrogen [Mass/Vol] 15 mg/dL 6 - 23 mg/dL [facility] Anion gap [Moles/Vol] 7 mmol/L Low 10-20 [facility] Comment on above: Performed By: #### 2 4321-2 #### JANESSA ORNELAS ([id number]) [facility] ([facility]) [facility] [place] [address] Calcium [Mass/Vol] 9.3 mg/dL Normal 8.6-10.3 [facility] Comment on above: Performed By: #### 2 4321-2 #### JANESSA ORNELAS ([id number]) [facility] ([facility]) [address] [place] [address] Chloride [Moles/Vol] 104 mmol/L Normal 98-107 [facility] Comment on above: Performed By: #### 2 4321-2 #### JANESSA ORNELAS ([id number]) [facility] ([facility]) [address] [place] [address] 12402 CO2 [Moles/Vol] 32 mmol/L Normal 21-32 [facility] Comment on above: Performed By: #### 2 4321-2 #### JANESSA ORNELAS ([id number]) [facility] ([facility]) [address] [place] [address] 94100 Creatinine [Mass/Vol] 0.63 mg/dL Normal 0.50-1.05 [facility] Comment on above: Performed By: #### 2 4321-2 #### JANESSA ORNELAS ([id number]) [facility] ([facility]) [address] [place] [address] 11176 Glomerular filtration rate >90 Normal >60 [facility] Comment on above: Result Comment: Calc ulations of estimated GFR are performed using the 2020 CKD-EPI Study Refit equation without the race variable for the IDMS-Traceable creatinine methods. https://jasn.asnjournals.org/content///ASN.395026079 8 Performed By: #### 2 4321-2 #### JANESSA ORNELAS ([id number]) [facility] ([facility]) [address] [place] [address] 34908 Glucose [Mass/Vol] 98 mg/dL Normal 74-99 [facility] Comment on above: Performed By: #### 2 4321-2 #### JANESSA ORNELAS ([id number]) [facility] ([facility]) [address] [place], [place] [id number] Potassium [Moles/Vol] 3.4 mmol/L Low 3.5-5.3 [facility] Comment on above: Performed By: #### 2 4321-2 #### JANESSA ORNELAS ([id number]) [facility] ([facility]) [address] [place], [place] [address] Sodium [Moles/Vol] 140 mmol/L Normal 136-145 [facility] Comment on above: Performed By: #### 2 4321-2 #### JANESSA ORNELAS ([id number]) [facility] ([facility]) [address] [place] [address] Urea nitrogen [Mass/Vol] 15 mg/dL Normal 6-23 [facility] Comment on above: Performed By: #### 2 4321-2 #### JANESSA ORNELAS ([id number]) [facility] ([facility]) [address] [place], [place] [id number] CBC W Auto Differential pane l (Bld)on 03-05-2025 Basophils (Bld) [#/Vol] 0.04 10*3/uL [facility] Basophils/100 WBC (Bld) 0.7 % 0.0 - 2.0 % [facility] Eosinophils (Bld) [#/Vol] 0.08 10*3/uL [facility] Eosinophils/100 WBC (Bld) 1.4 % 0.0 - 6.0 % [facility] Erythrocyte distribution width (RBC) [Ratio] 11.8 % 11.5 - 14.5 % [facility] Hematocrit (Bld) [Volume fraction] 37.7 % 36.0 - 46.0 % [facility] Hemoglobin (Bld) [Mass/Vol] 12.8 g/dL 12.0 - 16.0 g/dL [facility] Immature granulocytes (Bld) [#/Vol] 0.01 10*3/uL [facility] Immature granulocytes/100 WBC (Bld) 0.2 % 0.0 - 0.9 % [facility] Comment on above: Immature Granulocyte Count (IG) includes promyelocytes, myelocytes and metamyelocytes but does not include bands. Percent differential counts (%) should be interpreted in the context of the absolute cell counts (cells/UL). Lymphocytes (Bld) [#/Vol] 1.95 10*3/uL [facility] Lymphocytes/100 WBC (Bld) 34.1 % 13.0 - 44.0 % [facility] MCH (RBC) [Entitic mass] 30.9 pg 26.0 - 34.0 pg [facility] MCHC (RBC) [Mass/Vol] 34.0 g/dL 32.0 - 36.0 g/dL [facility] MCV (RBC) [Entitic vol] 91 fL 80 - 100 fL [facility] Monocytes (Bld) [#/Vol] 0.52 10*3/uL [facility] Monocytes/100 WBC (Bld) 9.1 % 2.0 - 10.0 % [facility] Neutrophils (Bld) [#/Vol] 3.12 10*3/uL [facility] Comment on above: Percent differential counts (%) should be interpreted in the context of the absolute cell counts (cells/uL). Neutrophils/100 WBC (Bld) 54.5 % 40.0 - 80.0 % [facility] Nucleated RBC/100 WBC (Bld) [Ratio] 0.0 % [facility] Platelets (Bld) [#/Vol] 228 10*3/uL [facility] RBC (Bld) [#/Vol] 4.14 10*6/uL [facility] WBC (Bld) [#/Vol] 5.7 10*3/uL [facility] Basophils (Bld) [#/Vol] 0.04 x10*3/uL Normal 0.00-0.10 [facility] Comment on above: Performed By: #### 5 7021-8 #### RIDDLE CECI ([id number]) [facility] ([facility]) [address] [place] [address] Basophils/100 WBC (Bld) 0.7 % Normal 0.0-2.0 [facility] Comment on above: Performed By: #### 5 7021-8 #### JANESSA ORNELAS ([id number]) [facility] ([facility]) [address] [place] [address] 99662 Eosinophils (Bld) [#/Vol] 0.08 x10*3/uL Normal 0.00-0.70 [facility] Comment on above: Performed By: #### 5 7021-8 #### JANESSA ORNELAS ([id number]) [facility] ([facility]) [address] [place] [address] 25243 Eosinophils/100 WBC (Bld) 1.4 % Normal 0.0-6.0 [facility] Comment on above: Performed By: #### 5 7021-8 #### JANESSA ORNELAS ([id number]) [facility] ([facility]) [address] [place] [address] 31825 Erythrocyte distribution width (RBC) [Ratio] 11.8 % Normal 11.5-14.5 [facility] Comment on above: Performed By: #### 5 7021-8 #### JANESSA ORNELAS ([id number]) [facility] ([facility]) [address] [place] [address] 34345 Hematocrit (Bld) [Volume fraction] 37.7 % Normal 36.0-46.0 [facility] Comment on above: Performed By: #### 5 7021-8 #### JANESSA ORNELAS ([id number]) [facility] ([facility]) [address] [place] [address] 33166 Hemoglobin (Bld) [Mass/Vol] 12.8 g/dL Normal 12.0-16.0 [facility] Comment on above: Performed By: #### 5 7021-8 #### JANESSA ORNELAS ([id number]) [facility] ([facility]) [address] [place] [address]0916 Immature granulocytes (Bld) [#/Vol] 0.01 x10*3/uL Normal 0.00-0.70 [facility] Comment on above: Performed By: #### 5 7021-8 #### JANESSA ORNELAS ([id number]) [facility] ([facility]) [address] [place] [address] 25622 Immature granulocytes/100 WBC (Bld) 0.2 % Normal 0.0-0.9 [facility] Comment on above: Result Comment: Arlene ture Granulocyte Count (IG) includes promyelocytes, myelocytes and metamyelocytes but does not include bands. Percent differential counts (%) should be interpreted in the context of the absolute cell counts (cells/UL). Performed By: #### 5 7021-8 #### JANESSA ORNELAS ([id number]) [facility] ([facility]) [address] [place] [address] 43533 Lymphocytes (Bld) [#/Vol] 1.95 x10*3/uL Normal 1.20-4.80 [facility] Comment on above: Performed By: #### 5 7021-8 #### JANESSA ORNELAS ([id number]) [facility] ([facility]) [address] [place] [address] 98041 Lymphocytes/100 WBC (Bld) 34.1 % Normal 13.0-44.0 [facility] Comment on above: Performed By: #### 5 7021-8 #### JANESSA ORNELAS ([id number]) [facility] ([facility]) [address] [place] [address] 52812 MCH (RBC) [Entitic mass] 30.9 pg Normal 26.0-34.0 [facility] Comment on above: Performed By: #### 5 7021-8 #### JANESSA ORNELAS ([id number]) [facility] ([facility]) [address] [place] [address] 80179 MCHC (RBC) [Mass/Vol] 34.0 g/dL Normal 32.0-36.0 [facility] Comment on above: Performed By: #### 5 7021-8 #### JANESSA ORNELAS ([id number]) [facility] ([facility]) [address] [place] [address] 49432 MCV (RBC) [Entitic vol] 91 fL Normal 80-100 [facility] Comment on above: Performed By: #### 5 7021-8 #### JANESSA ORNELAS ([id number]) [facility] ([facility]) [address] [place] [address] 00315 Monocytes (Bld) [#/Vol] 0.52 x10*3/uL Normal 0.10-1.00 [facility] Comment on above: Performed By: #### 5 7021-8 #### JANESSA ORNELAS ([id number]) [facility] ([facility]) [address] [place] [address] 28299 Monocytes/100 WBC (Bld) 9.1 % Normal 2.0-10.0 [facility] Comment on above: Performed By: #### 5 7021-8 #### JANESSA ORNELAS ([id number]) [facility] ([facility]) [address] [place] [address] 70332 Neutrophils (Bld) [#/Vol] 3.12 x10*3/uL Normal 1.20-7.70 [facility] Comment on above: Result Comment: Perc ent differential counts (%) should be interpreted in the context of the absolute cell counts (cells/uL). Performed By: #### 5 7021-8 #### JANESSA ORNELAS ([id number]) [facility] ([facility]) [address] [place] [address] 21883 Neutrophils/100 WBC (Bld) 54.5 % Normal 40.0-80.0 [facility] Comment on above: Performed By: #### 5 7021-8 #### JANESSA ORNELAS ([id number]) [facility] ([facility]) [address] [place] [address] 77109 Nucleated RBC/100 WBC (Bld) [Ratio] 0.0 /100 WBCs Normal 0.0-0.0 [facility] Comment on above: Performed By: #### 5 7021-8 #### JANESSA ORNELAS ([id number]) [facility] ([facility]) [address] [place] [address] 62139 Platelets (Bld) [#/Vol] 228 x10*3/uL Normal 150-450 [facility] Comment on above: Performed By: #### 5 7021-8 #### JANESSA ORNELAS ([id number]) [facility] ([facility]) [address] [place] [address] 82353 RBC (Bld) [#/Vol] 4.14 x10*6/uL Normal 4.00-5.20 [facility] Comment on above: Performed By: #### 5 7021-8 #### JANESSA ORNELAS ([id number]) [facility] ([facility]) [address] [place] [address] 83371 WBC (Bld) [#/Vol] 5.7 x10*3/uL Normal 4.4-11.3 [facility] Comment on above: Performed By: #### 5 7021-8 #### JANESSA ORNELAS ([id number]) [facility] ([facility]) [address] [place] [address] 59805 CBC W/Diff, Automatedon 02-14 Absolute Lymph 1.94 X10 3/uL Normal 0.83-4.51 [facility] Comment on above: Performed By: #### L 100.0100 #### [facility] [address] [facility] [place], [address] Absolute Neut 3.9 X10 3/uL Normal 2.0-7.7 [facility] Comment on above: Performed By: #### L 100.0100 #### [facility] [address] [facility] [place], [address] Basophils/100 WBC (Bld) 0.6 % Normal 0-1 [facility] Comment on above: Performed By: #### L 100.0100 #### [facility] [address] [facility] [place], [address] Eosinophils/100 WBC (Bld) 1.7 % Normal 0-5 [facility] Comment on above: Performed By: #### L 100.0100 #### [facility] [address] [place], [address] Erythrocyte distribution width (RBC) [Ratio] 11.7 % Normal 11.6-14.6 [facility] Comment on above: Performed By: #### L 100.0100 #### [facility] [address] [place], [address] Hematocrit (Bld) [Volume fraction] 40.9 % Normal 37-47 [facility] Comment on above: Performed By: #### L 100.0100 #### [facility] [address] [place], [address] Hemoglobin (Bld) [Mass/Vol] 13.8 g/dL Normal 12.0-15.0 [facility] Comment on above: Performed By: #### L 100.0100 #### [facility] [address] [place], [address] IG% 0.200 Normal 0.0-0.9 [facility] Comment on above: Result Comment: IG% - Immature Granulocytes (promyelocytes, myelocytes and metamyelocytes) > 1% indicates that a LEFT SHIFT is Present. Performed By: #### L 100.0100 #### [facility] [address] [place], [address] Lymphocytes/100 WBC (Bld) 29.2 % Normal 19-41 [facility] Comment on above: Performed By: #### L 100.0100 #### [facility] [address] [place], [address] MCH (RBC) [Entitic mass] 30.8 pg Normal 27.0-32.0 [facility] Comment on above: Performed By: #### L 100.0100 #### [facility] [address] [place], [address] MCHC (RBC) [Mass/Vol] 33.7 g/dL Normal 32-36 [facility] Comment on above: Performed By: #### L 100.0100 #### [facility] [address] [place], [address] MCV (RBC) [Entitic vol] 91.3 fL Normal 81-99 [facility] Comment on above: Performed By: #### L 100.0100 #### [facility] [address] [place], [address] Monocytes/100 WBC (Bld) 9.3 % Normal 0-10 [facility] Comment on above: Performed By: #### L 100.0100 #### [facility] [address] [place], [address] Neutrophils/100 WBC (Bld) 59.0 % Normal 47-70 [facility] Comment on above: Performed By: #### L 100.0100 #### [facility] [address] [place], [address] Nucleated RBC (Bld) [#/Vol] 0 10*3/uL Normal 0-5 [facility] Comment on above: Performed By: #### L 100.0100 #### [facility] [address] [place], [address] Platelet mean volume (Bld) [Entitic vol] 10.7 fL Normal 6.2-12.0 [facility] Comment on above: Performed By: #### L 100.0100 #### [facility] [address] [place], [address] Platelets (Bld) [#/Vol] 237 10*3/uL Normal 150-450 [facility] Comment on above: Performed By: #### L 100.0100 #### [facility] [address] [place], [address] RBC (Bld) [#/Vol] 4.48 10*6/uL Normal 4.2-5.4 [facility] Comment on above: Performed By: #### L 100.0100 #### [facility] [address] [place], [place], [id number] RDW SD 38.7 fl Normal 35.1-43.9 [facility] Comment on above: Performed By: #### L 100.0100 #### [facility] [address] [place], [place], [id number] WBC (Bld) [#/Vol] 6.7 10*3/uL Normal 4.4-11.0 [facility] Comment on above: Performed By: #### L 100.0100 #### [facility] [address] [place], [place], [id number] Coagulation surface inducedo n 03-05-2025 aPTT Coag (PPP) [Time] 28 s Normal 26-36 [facility] Comment on above: Order Comment: The A PTT is no longer used for monitoring Unfractionated Heparin Therapy. For monitoring Heparin Therapy, use the Heparin Assay. Performed By: #### 1 4979-9 #### JANESSA ORNELAS ([id number]) [facility] ([facility]) [address] [place], [place] [id number] Coagulation tissue factor in ducedon 03-05-2025 PT Coag (PPP) [Time] 11.2 s Normal 9.8-12.4 [facility] Comment on above: Performed By: #### 5 902-2 #### JANESSA ORNELAS ([id number]) [facility] ([facility]) [address] [place] [address] No Panel Informationon 03-05 Interpretation and review of laboratory results Normal [facility] PT Coag (PPP) [Time]on 03-05 INR Coag (PPP) [Relative time] 1.0 {INR} 0.9 - 1.1 [facility] INR Coag (PPP) [Relative time] 1.0 Normal 0.9-1.1 [facility] Comment on above: Performed By: #### 5 902-2 #### JANESSA ORNELAS ([id number]) [facility] ([facility]) [address] [place] [address] Protime-INRon 03-05-2025 PT Coag (PPP) [Time] 11.2 s [facility] aPTTon 03-05-2025 aPTT Coag (PPP) [Time] 28 s [facility] aPTT Coag (PPP) [Time]on The APTT is no longe r used for monitoring Unfractionated Heparin Therapy. For monitoring Heparin Therapy, use the Heparin Assay. [facility] Knee 4 or More Viewson 03-03 Knee 4 or More Views [facility] [address] [place] [address] Knee 4 or More Views MR#: [id number] Acct: [id number] Name: GIOVANNA NATION Rep #: [id number] : 1960 F 64 From: Shi Hernandez MD PCP: Dr. Leonarda Boykin MD Status: DEP AMB Study: Knee 4 or More Views Date of Exam: 03/03/25 Exam# [id number] Ordering Dr: Juliano Alatorre MD PROCEDURE: KNEE 4 OR MORE VIEWS 03/03/2025 REASON FOR EXAM: PAIN AFTER TAKING A WALK TECHNIQUE: KNEE 4 OR MORE VIEWS Laterality: FINDINGS: No evidence of acute fracture or dislocation. The joint spaces are maintained. No knee joint effusion. RAD/Knee 4 or More Views IMPRESSION: No acute osseous abnormality. Reading Location: [id number] CC: Dr. Leonarda Boykin MD; Dr. Juliano Alatorre MD Unix Consultant: Signed Normal [facility] Orthopedic Visit Reporton Orthopedic Visit Report [facility] [address] [place] [address] [address] [place] [address] OFFICE VISIT Date of Service: 03/03/25 MR#: [id number] Acct: [id number] Name: GIOVANNA NATION Rep #: [id number] : 1960 Provider: Dr. Juliano herrera MD Age/Sex: 64/F Location: [facility] Status: Signed Intake Vital Signs 02/23/25 11:21 03/02/25 09:36 Height 5 ft 3 in 5 ft 3 in Weight: 104 lb BMI 18.4 Intake Visit Reasons: LEFT KNEE Chief Complaint: pain, popping and swelling Accompanied by: Self Is patient in pain?: Yes Allergies Penicillins (PCN) Allergy (Verified 03/03/25 10:26) Hives prednisone Allergy (Verified 03/03/25 10:26) Unknown fluticasone (From Flovent HFA) Adverse Reaction (Verified 03/03/25 10:26) Mental status change Medications ???Medication ???Instructions ???Recorded ???Confirmed ???Type losartan 50 mg-hydrochlorothiazide 1 tab PO DAILY 11/16/23 03/03/25 History 12.5 mg tablet Lactobacillus acidophilus 5,000 mmu cells PO QDAY 10/31/24 0 03/03/25 History (Acidophilus capsule) aspirin 81 mg chewable tablet 40.5 mg PO QDAY 10/31/24 03/03/25 History cholecalciferol (vitamin D3) 25 50 mcg PO QDAY 10/31/24 03/03/25 H istory mcg (1,000 unit) tablet cyanocobalamin (vitamin B-12) 25 50 mcg PO DAILY 10/31/24 03/03/25 History mcg tablet doxepin 10 mg capsule 10 mg PO QHS 10/31/24 03/03/25 His tory magnesium citrate 70 mg-potassium 1 cap PO QDAY 10/31/24 03/03/25 H istory citrate 99 mg capsule methocarbamol 500 mg tablet 500 mg PO BID PRN 12/17/24 5 History Have you fallen in the past year?: Yes (august) [facility] Medical History (Updated 03/03/25 @ 10:41 by Juliano Alatorre MD) Osteoarthritis of left knee Left knee pain Muscle strain of left hip Left hip pain Post-menopausal Hypertension Impingement of right shoulder Right shoulder pain Physical exam, pre-employment Surgical History Hx of appendectomy Family History Mother Hypertension CVA (cerebral vascular accident) Social History household members: none Smoking Status: Former smoker alcohol intake: never substance use type: does not use what type of physical activity do you participate in: walking frequency: 3-4 times per week do you feel safe at home: Yes HPI LEFT KNEE Details: This documentation accurately reflects the service provided and the decisions made by me, Dr. Juliano Alatorre MD 03/03/25 0831. Part of today???s visit was documented by [ ], acting as scribe. GIOVANNA NATION is a 64 year old F here today for L knee pain. NEED XR. medial and posterior. months. worse recently with a long walk up and down. makes some popping. no treatment yes. some mild swelling. Patient has also started some physical therapy had an initial assessment for doing upper extremity therapy related to his cervical radiculopathy but that seems to be making the shoulder worse. Supplemental Info L knee xr 4 view - mild jnt space loss medial compartment . nil acute. Coding Level of Care Code Off vis,est,level 4 Diagnoses Left knee pain M25.562 Osteoarthritis of left knee M17.12 Right shoulder pain M25.511 Assessment and Plan Assessment and Plan (1) Left knee pain: Status: Acute Plan: GIOVANNA NATION is a 64 year old F here today for L knee pain, mild medial OA on xr. Patient also has ongoing right shoulder pain that has not responded to conservative management including 1 visit of physical therapy. I will order MRI both the shoulder and the knee the patient is not interested in ongoing conservative management such as injections at this point so we will further investigate to see if there is signs of a meniscus tear or rotator cuff tear on the MRI and follow-up after that they understood no further questions or concerns. (2) Osteoarthritis of left knee: Status: Acute Plan: Patient counselled on diagnosis, prognosis and treatment options. Osteoarthritis (OA) occurs when the cartilage in the knee joint breaks down, causing pain and stiffness. Here are several treatment options to help manage knee pain: 1. Lifestyle Changes What it is: Losing weight, avoiding high-impact activities, and exercising with low-impact activities like swimming or walking. How it helps: Reduces strain on the knee joint, improves muscle strength, and eases pain. 2. Physical Therapy What it is: Targeted exercises to strengthen the muscles around the knee and improve flexibility. How it helps: Provides support to the knee and improves mobility, reducing pain. 3. Medications What they are: [id number]-[id number] pain relievers like ibuprofen, naproxen, or acetamin (more content not included)... Normal [facility] Inital Evaluation (1) - PTon 02-24-2025 Inital Evaluation (1) - PT [facility] [address] [place] [address] / REHAB[facility]ATION SERVICES INITIAL EVALUATION MR#: [id number] Acct: [id number] Name: GIOVANNA NATION Rep #: [id number] : 1960 64 From: Armando Miranda DPT, OCS, CSCS Referring Dr.: VENU Rios Status: REG RCR Insurance: MEDICARE PART A B SELF PAY INSURANCE Patient's Visit Information Visit Information Visit Information: GIOVANNA NATION is a 64 year old F referred to Physical Therapy by VENU Rios with a diagnosis of cervicalgia. Date of Evaluation: 02/24/25 Physical Therapist: Armando Miranda DPT, OCS, CSCS Visit Plan Frequency: 2x /Week Duration: 4-6 Weeks Plan: 2x/week for 4-6 weeks: IE HEP: cervical retraction 15x, scap circles 20x, L rotation with OP 10x all 2x/day, postural focus. Treat with MH and subocc and UT STM and manual rotationn mobs and PA mobs t/s cervical, then out to gym for more aggressive strngth of neck and scap and shoulders progressing to HEP Subjective Subjective: Neck pain she believes is muscular. Had PT in spring and it helped. [place] and which moved quickly and shook a bit and startled her. neck did not hurt immediately but got sore after that. [place] it a few days later and neck has been sore since. Slowly worsening. Shy is R and left occipital region. Keeps her up at night often, up a number of times at night. Hurts at rest minimally. activities are eefectd in that she has to be careful with outdoor duties, she gets worse to look down. Retired. Hobbies: avoids lifting. Will see Dr. Alatorre for R shoulder pain. Whole body thing that she had in the spring is improving. Exercises : was doing exercises reguarly until January . Included isometrics, UT stretches Pain neck: Pain Intensity (Out of 10): 1 Pain Intensity Range: 1 and 6 Objective Objective: L 60 degree rotation and painful L subocc, R is 72 and painfree, ext is 55 and no pain, flexion is full and tight. Posture is forward heead and protracted scap. Scap ROm is good but weeak with winging in 30 flexion testing being obvious. UE AROM WFL and without pain. reflexes 1/3 bi and tri B. Sensation UE WNL to gross light touch B. strength UE 3+ flexion, abd , 4- IR, ER B, 4 bi and triceps B. thumb extension 4 B., no myotomal problems. Tender to palpation subocc L >R adn mildly into UT B - c/s compression test. - alar ligament, - VAT Balance/Special Test Scores Oswestry Neck Score: 19 Goals Goal 1:: Full symmetrical c/s rotation without increased pain Goal Time Frame: 4-6 Weeks Goal 2:: sleep without discomfort at night in neck Goal Time Frame: 2-4 Weeks Goal 3:: I appropriate HEP strength to limit future prob lems Goal Time Frame: 4-6 Weeks Goal 4:: Pain in neck 90% better and 1/10 at worst Goal Time Frame: 4-6 Weeks Goal 5:: oswestry score 5 or better Goal Time Frame: 4-6 Weeks Rehabilitation Potential Physical Therapy Diagnosis: neck stiffness and discomfort limiting funciton Rehabilitation Potential: Good Anticipated Interventions Patient/Client Instruction: Educate patient on: Condition and Plan of Care For the Purpose of:: To decrease pain, To increase ROM, To improve nutrient delivery to tissue, To improve muscle performance and motor function, To increase tolerance to activity/condition/posi tion and To improve ability of physical actions for home/community/work/lei sure Therapeutic Exercise to Include: Strength training, Postural training, Flexibilty training, Relaxation training, Passive ROM, Active ROM and Scapular Strength/Stabilization For the Purpose of:: To decrease pain, To increase ROM, To improve nutrient delivery to tissue, To improve muscle performance and motor function, To increase tolerance to activity/condition/posi tion and To improve ability of physical actions for home/community/work/lei sure Manual Therapy Techniques to Include: Mobilization, Passive ROM and Soft tissue mobilization For the Purpose of:: To decrease pain, To increase ROM, To improve nutrient delivery to tissue and To improve muscle performance and motor function Thermo therapy (hot pack): Yes For the Purpose of:: To improve nutrient delivery to tissue Text: Thank you for the opportunity to evaluate your patient. For Medicare and Medicare HMO plans, please review the plan of care and approve it. It will need to be FAXED BACK to us at [phone] for Medicare purposes. For Medicare only, by signing this I certify the plan of care. Please let me know if there are questions or concerns regarding this plan of care. Physician Signature: Date: 02/24/25 1153 CC: VENU Rios; Dr. Leonarda Boykin MD EBG Signed Normal [facility] Orthopedic Visit Reporton Orthopedic Visit Report [facility] [address] [place], [place] [id number] OFFICE VISIT Date of Service: 02/23/25 MR#: [id number] Acct: [id number] Name: RIOSGIOVANNA HUONG Rep #: [id number] : 1960 Provider: VENU Rios Age/Sex: 64/F Location: [facility] [place] Status: Signed Intake Vital Signs 12/08/24 06:51 02/23/25 11:21 Height 5 ft 3 in 5 ft 3 in Weight: 105 lb 2.568 oz 104 lb BMI 18.6 18.4 BP 148/81 H Respiration 14 Pulse 66 Temp 97.7 F L Temp Source Oral Pulse Oximetry (%) 100 Intake Visit Reasons: CERVICAL SPINE Chief Complaint: Cervical spine pain Accompanied by: Self Is patient in pain?: Yes Pain scale (1-10): 6 Allergies Penicillins (PCN) Allergy (Verified 02/23/25 11:28) Hives prednisone Allergy (Verified 02/23/25 11:28) Unknown fluticasone (From Flovent HFA) Adverse Reaction (Verified 02/23/25 11:28) Mental status change Medications ???Medication ???Instructions ???Recorded ???Confirmed ???Type losartan 50 mg-hydrochlorothiazide 1 tab PO DAILY 11/16/23 02/23/25 History 12.5 mg tablet Lactobacillus acidophilus 5,000 mmu cells PO QDAY 10/31/24 0 02/23/25 History (Acidophilus capsule) aspirin 81 mg chewable tablet 40.5 mg PO QDAY 10/31/24 02/23/25 History cholecalciferol (vitamin D3) 25 50 mcg PO QDAY 10/31/24 02/23/25 H istory mcg (1,000 unit) tablet cyanocobalamin (vitamin B-12) 25 50 mcg PO DAILY 10/31/24 02/23/25 History mcg tablet doxepin 10 mg capsule 10 mg PO QHS 10/31/24 02/23/25 His tory magnesium citrate 70 mg-potassium 1 cap PO QDAY 10/31/24 02/23/25 H istory citrate 99 mg capsule methocarbamol 500 mg tablet 500 mg PO BID PRN 12/17/24 5 History Have you fallen in the past year?: [facility] History Muscle strain of left hip Left hip pain Post-menopausal Hypertension Impingement of right shoulder Right shoulder pain Physical exam, pre-employment Surgical History Hx of appendectomy Family History Mother Hypertension CVA (cerebral vascular accident) Social History household members: none Smoking Status: Former smoker alcohol intake: never substance use type: does not use what type of physical activity do you participate in: walking frequency: 3-4 times per week do you feel safe at home: Yes HPI CERVICAL SPINE Details: This documentation accurately reflects the service provided and the decisions made by me, VENU Rios 02/23/25 1121. Part of today???s visit was documented by Marni Linn MA, acting as scribe. GIOVANNA NATION is a 64 year old F here today for cervical spine. Patient states that her pain in the neck is a 6 today. She states that the pain is on both sides of the neck. Patient states that it feels tight, so it makes her feel like she has half a headache. She states that she can move her neck, but she still has pain when she moves her neck. Patient states that the physical therapy did help her neck. She [facility] phys[facility] at [facility]. Patient states that she did 4 weeks of physical therapy. She went from August-November for a total of approx 26 visits. Says that the PT at first was for her legs and then the last 6-8 sessions was for her neck. Says that last month she was in an elevator that started to shake and since then felt like her neck had flared up. Says that since this happened her symptoms have stayed about the same she has not noticed a worsening or an improvement. She gets pain in the base of her skull on either side of her neck. This is equal bilaterally. Says that she does continue to get a tingling sensation in her arms more so on the right but it is in both. She denies any worsening dexterity or any worsening balance. No prior neck surgeries. No injections. Ortho Exam General General: Yes no acute distress Neurologic: Yes alert and Yes oriented x3 Spine SPINE TESTING CERVICAL THORACIC LUMBAR Musculoskeletal Strength 0=absent - 5=normal Details: Examination of the neck shows midline and paraspinal tenderness throughout the cervical spine. Neurological addition of upper extremity shows 5 x 5 following motion was normal sensations in all documents. No hyperreflexia. Ashly's negative. Coding Level of Care Code Off vis,est,level 3 Diagnoses Cervical radiculopathy M54.12 Neck pain M54.2 Assessment and Plan Assessment and Plan (1) Cervical radiculopathy: (2) Neck pain: Orders: Referrals Physical Therapy Referral M54.2 - Cervicalgia Plan Reviewed x-rays and MRI of the cervical (more content not included)... Normal [facility] CNOVon 02-04-2025 CNOV Office Visit ([facility] ) GIOVANNA NATION ([id number]) 1960 F Date Time Provider Department 02/04/25 9:00 AM LEONARDA BOYKIN During your visit today, we recorded the following information about you: Temperature Pulse Blood pressure Weight 98.6 degrees 71/minute 118/79 47.2 kg Leonarda Boykin MD 02/04/2025 9:41 AM Signed 02/04/2025 Recording using Parenting[employer]former software for draft documentation of the visit was discussed with the patient/authorized car sales representative; all questions welcomed and answered. Patient/authorized car sales representative agreed to proceed HPI: Giovanna Nation is a 64-year-old female presenting for evaluation of dizziness, neck pain, and right hip pain following an elevator incident. Dizziness: - Onset after an elevator incident a few days ago. - Describes sensation as if spinning rather than the room spinning. - Aggravated by head movement, looking down, and closing eyes. - Associated with blurry vision; denies nausea. - No prior history of dizziness. Neck Pain: - Onset after elevator incident. - Describes pain and tightness in the neck. - Able to move neck; denies severe pain. - No recent physical therapy or injections for neck pain. Right Hip Pain: - Chronic pain x6 months, worsened by recent fall in August. - Pain localized deep in the joint, with occasional popping sensation. - Aggravated by stepping and weight-bearing activities. - Pain disrupts sleep. - No prior X-rays of the right hip. - History of falls in 2016 and December 2020, with previous injuries to the left side. No other concerns or complaints today. PAST MEDICAL HISTORY Diagnosis Date Attention deficit disorder without mention of hyperactivity Adult Closed fracture of distal end of left radius 08/21/2016 Excessive or frequent menstruation History of colonoscopy 12/2020 Myalgia and myositis, unspecified Primary hypertension 12/30/2023 PAST SURGICAL HISTORY Procedure Laterality Date APPENDECTOMY APPENDECTOMY HX LIG/TRNSXJ FLP TUBE ABDL/VAG APPR UNI/BI Tubal ligation FAMILY HISTORY Problem Relation Age of Onset Cancer Mother Cervical cancer- treated Psychiatry Sister suicide Ischemic Heart Disease Brother 60 [place], heavy smoker, Etoh Psychiatry Son Opoid dependency Cancer Other Niece (sister's daughter) Social History Tobacco Use Smoking status: Former Current packs/day: 0.50 Types: Cigarettes Smokeless tobacco: Never Vaping Use Vaping status: Former Substance Use Topics Alcohol use: No Drug use: Never Current Outpatient Medications on File Prior to Visit Medication Sig meloxicam (MOBIC) 7.5 mg tablet Take 7.5 mg by mouth once daily. doxepin capsule 10 mg Take 10 mg by mouth daily at bedtime. cyanocobalamin, vitamin B-12, (VITAMIN B-12 ORAL) Take by mouth. Gummie aspirin, enteric coated (ASPIRIN, ENTERIC COATED) 81 mg EC tablet Take 81 mg by mouth once daily. 1/2 tablet daily cholecalciferol, vitamin D3, (VITAMIN D3 50 MCG, 2,000 UNIT, GUMMIES) losartan-hydroCHLOROthi azide (HYZAAR) 50-12.5 mg per tablet Take 1 tablet by mouth once daily. DULoxetine (CYMBALTA) 30 mg capsule Take 1 capsule by mouth once daily. (Patient not taking: Reported on 02/04/2025) No current facility-administered medications on file prior to visit. Review of Systems: Head: (+) headache, (+) head pressure Eyes: (+) blurred vision Ears/Nose/Mouth/Throat: (-) sinus pressure Neck: (+) neck pain, (+) neck stiffness Musculoskeletal: (+) right hip pain, (+) right hip popping Neurological: (+) dizziness Physical Exam: BP 118/79 Pulse 71 Temp 37 ?C (98.6 ?F) Wt 47.2 kg (104 lb 0.9 oz) LMP 02/11/2006 SpO2 100% BMI 18.44 kg/m? GENERAL: NAD, alert and oriented. SKIN: Unremarkable, no rash or skin lesions. HEAD: Normocephalic. NECK: Supple, no lymphadenopathy, normal thyroid, no carotid bruits. LUNGS: Clear to auscultation bilaterally, no wheezes/rhonchi/rales. HEART: Regular rate and rhythm, no murmurs. No ectopy. Right hip Mild pain with straight leg raise, IR 5/5 strength EXTREMITIES: Normal, no deformities, no skin discoloration, no edema. NEURO: Awake, alert and oriented x3, cranial nerves II-XII grossly intact, normal gait, no involuntary motions. Normal finger to nose. Diagnostics reviewed: Assessment/Plan: 1. Right hip pain (M25.551) 2. Tendinopathy of right gluteus medius (M67.951) - Right hip pain with popping sensation and discomfort in the joint area, persisting for several months. - Good range of motion on examination; suspect tendinopathy of the right gluteus medius and possible arthritis. - Ordered X-ray of the right hip to evaluate joint and bony structures. - Recommended gluteus medius strengthening exercises. 3. Vertigo (R42) - Onset of vertigo following an incident in an elevator; described as a spinning sensation, exacerbated by head mo (more content not included)... Normal [facility] XR HIP 3V PELV+ AP/LAT RTon 02-04-2025 XR HIP 3V PELV+ AP/LAT RT * * *Final Report* * * DATE OF EXAM: Feb 04 2025 12:23PM [id number] [id number] - XR HIP 3V PELV+ AP/LAT RT / PROCEDURE REASON: Right hip pain * * * * Physician Interpretation * * * * PROCEDURE: Pelvis and right hip INDICATION: Right hip pain .PT STATES RIGHT HIP PAIN TECHNIQUE: XR HIP 3V PELV+ AP/LAT RT COMPARISON: 07/02/2019 FINDINGS: No fractures or dislocations are seen. The hip and sacroiliac joints are maintained. No soft tissue abnormality is evident. Bilateral tubal ligatures. No interval change. IMPRESSION: Negative. Unix Consultant: ROSA Transcribe Date/Time: Feb 07 2025 1:50P Dictated by : STEVE ALONZO MD This examination was interpreted and the report reviewed and electronically signed by: STEVE ALONZO MD on Feb 07 2025 1:50PM EST [id number] Normal [facility] GIOVANNA NATION ([id number]) 1960 F Date Time Provider Department 12/29/24 LEONARDA BOYKIN During your visit today, we recorded the following information about you: Vivian Renee 12/29/2024 3:25 PM Signed Diana with [facility] is calling Leonarda Boykin MD today to note they received a cover page with a name and MRN requesting reports and the information in not clear on what is exactly needed. Please call to discuss what is needed for this patient from this facility Call back Diana/ Geochemist. [phone] Person calling: Diana Call patient at: on cell [phone] (home) [phone] (cell) Was an appointment scheduled: No Closing statement: Results or non-symptom based questions: Thank you for calling [facility], your call will be returned within the next business day. Vivian Flanagan [facility] La Nena Mack LPN 12/30/2024 9:22 AM Signed Spoke with Diana, we just need the last office notes. She did fax that over to us. La Nena Mack LPN Allergies As of Date: 12/29/2024 Noted Allergy Reaction FLOVENT (FLUTICASONE PROPIONATE) 10/17/2019 14 - Other: See Comments Comments: took breath away PENICILLINS 09/21/2005 2 - Rash PREDNISONE 09/21/2005 1 - Mental Status Change Comments: Depression Date Reviewed: 12/23/2024 Reviewed by: La Nena Mack LPN - Fully Assessed Reason for Visit: Question [7517] Prescriptions as of 12/30/2024 - meloxicam (MOBIC) 7.5 mg tablet Take 7.5 mg by mouth once daily. - DULoxetine (CYMBALTA) 30 mg capsule Take 1 capsule by mouth once daily. - doxepin capsule 10 mg Take 10 mg by mouth daily at bedtime. - methocarbamol (ROBAXIN) 500 mg tablet Take 1 tablet by mouth two times a day as needed. - cyanocobalamin, vitamin B-12, (VITAMIN B-12 ORAL) Take by mouth. Gummie - aspirin, enteric coated (ASPIRIN, ENTERIC COATED) 81 mg EC tablet Take 81 mg by mouth once daily. 1/2 tablet daily - cholecalciferol, vitamin D3, (VITAMIN D3 50 MCG, 2,000 UNIT, GUMMIES) - losartan-hydroCHLOROthi azide (HYZAAR) 50-12.5 mg per tablet Take 1 tablet by mouth once daily. Problem List As Of Date 12/29/2024 Noted Resolved MYALGIA AND MYOSITIS NOS [XBD2563] Tobacco use [Z72.0] 10/20/2013 01/07/2020 Depression with anxiety [F41.8] 11/19/2015 03/17/2021 Closed fracture of distal end of left radius [S*08/21/2016 07/02/2018 Shoulder stiffness [M25.619] 11/16/2016 Radiculopathy, cervical region [M54.12] 01/08/2017 Reflex sympathetic dystrophy of left upper extr*01/10/2017 Primary osteoarthritis of first carpometacarpal* 017 Lateral epicondylitis of left elbow [M77.12] 03/07/2017 Cubital tunnel syndrome on left [G56.22] 03/07/2017 Pain in left wrist [M25.532] 05/16/2017 Chronic left shoulder pain [M25.512, G89.29] 05/16/2017 Pain in left elbow [M25.522] 05/30/2017 Numbness and tingling in left upper extremity [*05/30/2017 Tobacco abuse, 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] 01/07/2020 Vitamin D deficiency [E55.9] 01/07/2020 Vitamin B12 deficiency [E53.8] 01/07/2020 MDD (major depressive disorder), recurrent epis*05/07/2021 Acute pain of right shoulder [M25.511] 11/20/2023 New daily persistent headache [G44.52] 12/28/2023 ADHD [F90.9] 12/30/2023 Primary hypertension [I10] 12/30/2023 Left facial numbness [R20.0] 12/30/2023 Headache [R51.9] 01/14/2024 Raynaud's disease without gangrene [I73.00] 08/08/2024 Encounter Status:Closed by LA NENA MACK on 12/30/24 Normal [facility] CNOVon 12-23-2024 CNOV Office Visit (FAMDNA ) GIOVANNA NATION ([id number]) 1960 F Date Time Provider Department 12/23/24 11:40 AM LEONARDA BOYKIN During your visit today, we recorded the following information about you: Temperature Pulse Blood pressure Weight 99.1 degrees 91/minute 120/72 47.9 kg Height 1.6 m Leonarda Boykin MD 12/23/2024 1:20 PM Signed 12/23/2024 Recording using [employer] software for draft documentation of the visit was discussed with the patient/authorized car sales representative; all questions welcomed and answered. Patient/authorized car sales representative agreed to proceed HPI: Giovanna Nation is a 64-year-old female with a history of degenerative disc disease, presenting for evaluation of left hip pain and ongoing neurological symptoms. Left Hip Pain: - Onset approximately two weeks ago, following vigorous exercise on a machine with a slanted back and pedals at a community center. - Pain began two days post-exercise, initially mild, then rapidly worsening to the point of being unable to bear weight on the left leg. - Describes pain as deep within the joint, with a C shape distribution from the back to the front of the hip. - Aggravated by standing up and straightening the back; no pain when leaning forward. - Avoided lying on the affected side initially, but later tried it without worsening the pain. - Pain persists but has not worsened; able to stand and walk with some discomfort. - ER visit at [facility] on ; X-rays showed no fractures, minimal arthritis. - Follow-up with Dr. Juliano Alatorre, supervisory investigative specialist, who prescribed Meloxicam 7.5 mg BID for 5 days; Giovanna has 9 tablets remaining. - Using ice therapy and Methocarbamol as needed for muscle relaxation. - Physical therapy recommended by Dr. Alatorre and to follow up if not improving. Neurological Symptoms: - Persistent numbness in the tongue and around the mouth, described as similar to post-dental procedure numbness. - Symptoms began in April 2023, with initial presentation of inability to open the eye and numbness around the mouth. - Numbness now extends to the face, arms, and legs, though less severe in the limbs. - Recent MRI of the neck reviewed by Dr. Ríos, aviation medicine specialist, who did not recommend surgery but referred to pain management. - Seen by Dr. Castillo, painter hand, who suggested a steroid injection; Giovanna hesitant about steroid use. - Previous treatment with Gabapentin by a neurologist; Giovanna unwilling to resume. - Currently taking Doxepin for sleep, started during a period of chronic headaches lasting a year. - Recent CT of the lower back showed some narrowing, but not severe. - Vascular evaluation for toe symptoms deemed non-vascular by the specialist. - Giovanna reports less stress now than in the past, but symptoms are causing concern and affecting quality of life. No other concerns or complaints today. PAST MEDICAL HISTORY Diagnosis Date Attention deficit disorder without mention of hyperactivity Adult Closed fracture of distal end of left radius 08/21/2016 Excessive or frequent menstruation History of colonoscopy 12/2020 Myalgia and myositis, unspecified Primary hypertension 12/30/2023 PAST SURGICAL HISTORY Procedure Laterality Date APPENDECTOMY APPENDECTOMY HX LIG/TRNSXJ FLP TUBE ABDL/VAG APPR UNI/BI Tubal ligation FAMILY HISTORY Problem Relation Age of Onset Cancer Mother Cervical cancer- treated Psychiatry Sister suicide Ischemic Heart Disease Brother 60 [place], heavy smoker, Etoh Psychiatry Son Opoid dependency Cancer Other Niece (sister's daughter) Social History Tobacco Use Smoking status: Former Current packs/day: 0.50 Types: Cigarettes Smokeless tobacco: Never Vaping Use Vaping status: Former Substance Use Topics Alcohol use: No Drug use: Never Current Outpatient Medications on File Prior to Visit Medication Sig meloxicam (MOBIC) 7.5 mg tablet Take 7.5 mg by mouth once daily. (Patient taking differently: Take 7.5 mg by mouth once daily. 1 tablet twice daily) doxepin capsule 10 mg Take 10 mg by mouth daily at bedtime. methocarbamol (ROBAXIN) 500 mg tablet Take 1 tablet by mouth two times a day as needed. cyanocobalamin, vitamin B-12, (VITAMIN B-12 ORAL) Take by mouth. Gummie aspirin, enteric coated (ASPIRIN, ENTERIC COATED) 81 mg EC tablet Take 81 mg by mouth once daily. 1/2 tablet daily cholecalciferol, vitamin D3, (VITAMIN D3 50 MCG, 2,000 UNIT, GUMMIES) losartan-hydroCHLOROthi azide (HYZAAR) 50-12.5 mg per tablet Take 1 tablet by mouth once daily. No current facility-administered medications on file prior to visit. Review of Systems: Musculoskeletal: (+) left hip pain, (+) left groin pain, (-) radiating posterior leg pain Neurological: (+) tongue numbness, (+) perioral numbness, (+) limb nu (more content not included)... Normal [facility] Orthopedic Visit Reporton Orthopedic Visit Report [facility] [address] [place] [address] OFFICE VISIT Date of Service: 12/17/24 MR#: [id number] Acct: [id number] Name: GIOVANNA NATION Rep #: [id number] : 1960 Provider: Dr. Juliano herrera MD Age/Sex: 64/F Location: [facility] [place] Status: Signed Intake Vital Signs 12/08/24 06:51 Height 5 ft 3 in Intake Visit Reasons: LEFT GROIN Chief Complaint: left hip/groin Accompanied by: Friend Is patient in pain?: Yes Pain scale (1-10): 6 Allergies Penicillins (PCN) Allergy (Verified 12/17/24 13:24) Hives prednisone Allergy (Verified 12/17/24 13:24) Unknown fluticasone (From Flovent HFA) Adverse Reaction (Verified 12/17/24 13:24) Mental status change Medications ???Medication ???Instructions ???Recorded ???Confirmed ???Type losartan 50 mg-hydrochlorothiazide 1 tab PO DAILY 11/16/23 12/17/24 History 12.5 mg tablet Lactobacillus acidophilus 5,000 mmu cells PO QDAY 10/31/24 0 12/17/24 History (Acidophilus capsule) aspirin 81 mg chewable tablet 40.5 mg PO QDAY 10/31/24 12/17/24 History cholecalciferol (vitamin D3) 25 50 mcg PO QDAY 10/31/24 12/17/24 H istory mcg (1,000 unit) tablet cyanocobalamin (vitamin B-12) 25 50 mcg PO DAILY 10/31/24 12/17/24 History mcg tablet doxepin 10 mg capsule 10 mg PO QHS 10/31/24 12/17/24 His tory magnesium citrate 70 mg-potassium 1 cap PO QDAY 10/31/24 12/17/24 H istory citrate 99 mg capsule meloxicam 7.5 mg tablet 7.5 mg PO BID PRN pain 5 days #20 12/17/24 12/17/24 Rx tabs methocarbamol 500 mg tablet 500 mg PO BID PRN 12/17/24 5 History Have you fallen in the past year?: No PFSH Medical History Left hip pain Post-menopausal Hypertension Impingement of right shoulder Right shoulder pain Physical exam, pre-employment Surgical History Hx of appendectomy Family History Mother Hypertension CVA (cerebral vascular accident) Social History household members: none Smoking Status: Former smoker alcohol intake: never substance use type: does not use what type of physical activity do you participate in: walking frequency: 3-4 times per week do you feel safe at home: Yes HPI LEFT GROIN Details: This documentation accurately reflects the service provided and the decisions made by me, Dr. Juliano Alatorre MD 12/17/24 5004. Part of today???s visit was documented by [ ], acting as scribe. GIOVANNA NATION is a 64 year old F here today for 2 wks FU L groin pain. Was in ED. xrays show min OA. was previously seeing a spine provider. last week, sunday evening. here with her good friend Mango. anterior groin pain, spontaneous. feeling a bit better. active in the [employer]. worse to stand up and put weight. ok to forward flex. just with standing up straight then makes it worse. no narcotic use. somewhat thigh pain but no numbness or tingling or weakness. no loss of control bowel or bladder. Supplemental Info [facility] Imaging Services [address] [place], [place] [address] HIP, UNI W/ Pelvis 2-3 Views MR#: [id number] Acct: [id number] Name: GIOVANNA NATION Rep #: [id number] : 1960 F 64 From: Luis Alberto Ruth MD PCP: Dr. Leonarda Boykin MD Status: REG ER Study: HIP, UNI W/ Pelvis 2-3 Views Date of Exam: 12/08/24 Exam# [id number] Ordering Dr: Sheng Ward MD PROCEDURE: HIP, UNI W/ PELVIS 2-3 VIEWS 12/08/2024 REASON FOR EXAM: INJURY/PAIN TECHNIQUE: AP pelvis two views left hip, 3 total images COMPARISON: None available FINDINGS: No fracture or dislocation. Symmetric appearing SI joints and pubic symphysis appear within limits. The joint spaces appear within limits. Bilateral tubal ligation clips noted. RAD/HIP, UNI W/ Pelvis 2-3 Views IMPRESSION: No fracture or dislocation. Reading Location: [facility] I independently reviewed the imaging. Concur with radiologist report. Coding Level of Care Code Off vis,est,level 4 Diagnoses Left hip pain M25.552 Muscle strain of left hip S76.012A Assessment and Plan Assessment and Plan (1) Left hip pain: Status: Acute Plan: 64-year-old female with 10 days of left anterior hip pain and muscle pain the seems like muscular strain. She was doing an exercise equipment and really seem to overdo it. No red flag symptoms x- rays are negative. Recommend rest ice anti-inflam (more content not included)... Normal [facility] CBC W/Diff, Automatedon 11-14 Absolute Lymph 1.64 X10 3/uL Normal 0.83-4.51 [facility] Comment on above: Performed By: #### L 101.9900, L500.4050, L100.0100 #### [facility] [address] [place], [address] Absolute Neut 2.1 X10 3/uL Normal 2.0-7.7 [facility] Comment on above: Performed By: #### L 101.9900, L500.4050, L100.0100 #### [facility] [address] [place], [address] Basophils/100 WBC (Bld) 1.1 % High 0-1 [facility] Comment on above: Performed By: #### L 101.9900, L500.4050, L100.0100 #### [facility] [address] [place], [address] Eosinophils/100 WBC (Bld) 4.8 % Normal 0-5 [facility] Comment on above: Performed By: #### L 101.9900, L500.4050, L100.0100 #### [facility] [address] [place], [address] Erythrocyte distribution width (RBC) [Ratio] 11.4 % Low 11.6-14.6 [facility] Comment on above: Performed By: #### L 101.9900, L500.4050, L100.0100 #### [facility] [address] [place], [address] Hematocrit (Bld) [Volume fraction] 37.9 % Normal 37-47 [facility] Comment on above: Performed By: #### L 101.9900, L500.4050, L100.0100 #### [facility] [address] [place], [address] Hemoglobin (Bld) [Mass/Vol] 12.7 g/dL Normal 12.0-15.0 [facility] Comment on above: Performed By: #### L 101.9900, L500.4050, L100.0100 #### [facility] [address] [place], [address] IG% 0.400 Normal 0.0-0.9 [facility] Comment on above: Result Comment: IG% - Immature Granulocytes (promyelocytes, myelocytes and metamyelocytes) > 1% indicates that a LEFT SHIFT is Present. Performed By: #### L 101.9900, L500.4050, L100.0100 #### [facility] [address] [place], [address] Lymphocytes/100 WBC (Bld) 35.9 % Normal 19-41 [facility] Comment on above: Performed By: #### L 101.9900, L500.4050, L100.0100 #### [facility] [address] [place], [address] MCH (RBC) [Entitic mass] 31.1 pg Normal 27.0-32.0 [facility] Comment on above: Performed By: #### L 101.9900, L500.4050, L100.0100 #### [facility] [address] [place], [address] MCHC (RBC) [Mass/Vol] 33.5 g/dL Normal 32-36 [facility] Comment on above: Performed By: #### L 101.9900, L500.4050, L100.0100 #### [facility] [address] [place], [address] MCV (RBC) [Entitic vol] 92.7 fL Normal 81-99 [facility] Comment on above: Performed By: #### L 101.9900, L500.4050, L100.0100 #### [facility] [address] [place], [address] Monocytes/100 WBC (Bld) 12.7 % High 0-10 [facility] Comment on above: Performed By: #### L 101.9900, L500.4050, L100.0100 #### [facility] [address] [place], [address] Neutrophils/100 WBC (Bld) 45.1 % Low 47-70 [facility] Comment on above: Performed By: #### L 101.9900, L500.4050, L100.0100 #### [facility] [address] [place], [address] Nucleated RBC (Bld) [#/Vol] 0 10*3/uL Normal 0-5 [facility] Comment on above: Performed By: #### L 101.9900, L500.4050, L100.0100 #### [facility] [address] [place], [address] Platelet mean volume (Bld) [Entitic vol] 9.0 fL Normal 6.2-12.0 [facility] Comment on above: Performed By: #### L 101.9900, L500.4050, L100.0100 #### [facility] [address] [place], [address] Platelets (Bld) [#/Vol] 294 10*3/uL Normal 150-450 [facility] Comment on above: Performed By: #### L 101.9900, L500.4050, L100.0100 #### [facility] [address] [place], [address] RBC (Bld) [#/Vol] 4.09 10*6/uL Low 4.2-5.4 [facility] Comment on above: Performed By: #### L 101.9900, L500.4050, L100.0100 #### [facility] [address] [place], [address] RDW SD 38.1 fl Normal 35.1-43.9 [facility] Comment on above: Performed By: #### L 101.9900, L500.4050, L100.0100 #### [facility] [address] [place], [address] WBC (Bld) [#/Vol] 4.6 10*3/uL Normal 4.4-11.0 [facility] Comment on above: Performed By: #### L 101.9900, L500.4050, L100.0100 #### [facility] [address] [place], [address] Comprehensive Metabolic [facility] 12-08-2024 Albumin [Mass/Vol] 3.9 g/dL Normal 3.4-4.8 [facility] Comment on above: Performed By: #### L 101.9900, L500.4050, L100.0100 #### [facility] [address] [place], [address] Albumin/Globulin [Mass ratio] 1.5 {ratio} Normal 0.9-2.4 [facility] Comment on above: Performed By: #### L 101.9900, L500.4050, L100.0100 #### [facility] [address] [place], [address] ALK PHOS 67 U/L Normal 35-104 [facility] Comment on above: Performed By: #### L 101.9900, L500.4050, L100.0100 #### [facility] [address] [place], [address] ALT [Catalytic activity/Vol] 20 U/L Normal <=34 [facility] Comment on above: Performed By: #### L 101.9900, L500.4050, L100.0100 #### [facility] [address] [place], [address] AST [Catalytic activity/Vol] 30 U/L Normal <=31 [facility] Comment on above: Performed By: #### L 101.9900, L500.4050, L100.0100 #### [facility] [address] [place], [address] Bilirubin [Mass/Vol] 0.33 mg/dL Normal 0.00-1.30 [facility] Comment on above: Performed By: #### L 101.9900, L500.4050, L100.0100 #### [facility] [address] [place], [address] BUN/CRE 14.7 RATIO Normal 10-20 [facility] Comment on above: Performed By: #### L 101.9900, L500.4050, L100.0100 #### [facility] [address] [place], [address] Calcium [Mass/Vol] 9.1 mg/dL Normal 7.6-11.0 [facility] Comment on above: Performed By: #### L 101.9900, L500.4050, L100.0100 #### [facility] [address] [place], [address] Chloride [Moles/Vol] 106 mmol/L Normal 98-108 [facility] Comment on above: Performed By: #### L 101.9900, L500.4050, L100.0100 #### [facility] [address] [place], [address] CO2 [Moles/Vol] 27.7 mmol/L Normal 21.0-32.0 [facility] Comment on above: Performed By: #### L 101.9900, L500.4050, L100.0100 #### [facility] [address] [place], [address] Creatinine [Mass/Vol] 0.65 mg/dL Low 0.70-1.20 [facility] Comment on above: Performed By: #### L 101.9900, L500.4050, L100.0100 #### [facility] [address] [place], [address] ECRCL 52.79 ml/min Normal 50-250 [facility] Comment on above: Performed By: #### L 101.9900, L500.4050, L100.0100 #### [facility] [address] [place], [address] GAP 9 Normal 5-15 [facility] Comment on above: Performed By: #### L 101.9900, L500.4050, L100.0100 #### [facility] [address] [place], [address] GFR/1.73 sq M.predicted among non-blacks MDRD (S/P/Bld) [Vol rate/Area] 98 mL/min/{1.73_m2} Normal >60 [facility] Comment on above: Result Comment: mL/m in/1.73m2 CKD-EPI Creatinine Equation (2020) Performed By: #### L 101.9900, L500.4050, L100.0100 #### [facility] [address] [place], [address] Globulin (S) [Mass/Vol] 2.6 g/dL Normal 2.2-4.2 [facility] Comment on above: Performed By: #### L 101.9900, L500.4050, L100.0100 #### [facility] [address] [place], [address] Glucose [Mass/Vol] 95 mg/dL Normal 70-99 [facility] Comment on above: Performed By: #### L 101.9900, L500.4050, L100.0100 #### [facility] [address] [place], [address] Potassium [Moles/Vol] 3.4 mmol/L Normal 3.3-5.1 [facility] Comment on above: Performed By: #### L 101.9900, L500.4050, L100.0100 #### [facility] [address] [place], [address] Sodium [Moles/Vol] 143 mmol/L Normal 133-145 [facility] Comment on above: Performed By: #### L 101.9900, L500.4050, L100.0100 #### [facility] [address] [place], [address] T PROT 6.4 g/dL Normal 5.9-8.4 [facility] Comment on above: Performed By: #### L 101.9900, L500.4050, L100.0100 #### [facility] [address] [place], [address] Urea nitrogen [Mass/Vol] 10 mg/dL Normal 4-19 [facility] Comment on above: Performed By: #### L 101.9900, L500.4050, L100.0100 #### [facility] [address] [place], [address] Emergency Department Summary on 12-08-2024 Emergency Department Summary [facility] Medical Records Department [address] [place] [address] Emergency Department Summary 12/08/24 MR#: [id number] Acct: [id number] Name: GIOVANNA NATION Rep #: [id number] : 1960 64 From: Sheng Ward MD PCP: Dr. Leonarda Boykin MD Status:REG ER Location: ED HPI History of Present Illness Chief Complaint: Lower Extremity Injury Detail of Chief Complaint: Atraumatic pain left inguinal area/left gluteal area radiating distally to Informant: patient Occured/Mechanism Comment: Atraumatic pain left lower extremity and hip region Onset/Context/Timing Onset: Days (Patient stated she noted some pain Sunday. Was worse yesterday. ) Context: Sudden Onset Timing: Continuous Quality of Pain: Aching Location: Left inguinal area, gluteal area and thigh Current Severity: Mild Maximum Severity: Severe Worsened by: Weightbearing Relieved by: Nothing Associated Symptoms Associated Symptoms: Positive for - (Difficulty ambulating); Negative for Parasthesia, Weakness or Loss of Funtion Narrative Narrative: Patient is 64-year-old woman. She has history of hypertension on losartan. She also has history of ADHD. She stopped her medication in July. She has had slight weight gain. She denies weight loss. Denies night sweats. She denies prior injury to the hip or problems with the hip. She cannot recall any direct or indirect trauma. She denies symptoms of claudication. She has no history of autoimmune disorder. She has not noted a rash. She has not noted swelling of her hip or knee region. She denies abdominal pain. She denies nausea, vomiting diarrhea. Denies constipation. Denies change in color, caliber or consistency of her stool. She has no urologic symptoms. Prior similar symptoms: No Recent Illness/Hospitalization : No [facility] Medical History Post-menopausal Hypertension Impingement of right shoulder Right shoulder pain Physical exam, pre-employment Home Medications ???Medication ???Instructions ???Recorded ???Last Taken ???Type lidocaine 5 % topical patch 2 patch topical DAILY #15 ea 11/13 Unknown Rx (Lidoderm) losartan 50 mg-hydrochlorothiazide 1 tab PO DAILY 11/16/23 Unknown History 12.5 mg tablet Lactobacillus acidophilus 5,000 mmu cells PO QDAY 10/31/24 U nknown History (Acidophilus capsule) aspirin 81 mg chewable tablet 40.5 mg PO QDAY 10/31/24 Unknown H istory cholecalciferol (vitamin D3) 25 50 mcg PO QDAY 10/31/24 Unknown Hi story mcg (1,000 unit) tablet cyanocobalamin (vitamin B-12) 25 50 mcg PO DAILY 10/31/24 Unknown H istory mcg tablet doxepin 10 mg capsule 10 mg PO QHS 10/31/24 Unknown Hist ory magnesium citrate 70 mg-potassium 1 cap PO QDAY 10/31/24 Unknown Hi story citrate 99 mg capsule hydrocodone-acetaminoph en 5-325mg 1 tab PO Q6H PRN PRN Pain 3 days 12/08/24 Unknown Rx 5mg-325mg #10 TABLETS Allergy/AdvReac Type Severity Reaction Status Date / Time Penicillins (PCN) Allergy Hives Verified 12/08/24 06:52 prednisone Allergy Unknown Verified 12/08/24 06:52 fluticasone (From Flovent AdvReac Mental Verified 12/08/24 06:52 HFA) status change Family History Mother Hypertension CVA (cerebral vascular accident) Surgical History Hx of appendectomy Social History household members: none Smoking Status: Former smoker alcohol intake: never substance use type: does not use what type of physical activity do you participate in: walking frequency: 3-4 times per week do you feel safe at home: Yes ROS ROS ED Constitutional Constitutional ED: Denies chills, fever(s), subjective, sweats or weight loss Cardiovascular Cardiovascular: Denies chest pain or palpitations Respiratory/Chest Respiratory/Chest: Denies cough, dyspnea or dyspnea on exertion Gastrointestinal Gastrointestinal: Denies abdominal pain, constipation, diarrhea, nausea or vomiting Genitourinary Genitourinary ED: Reports other Details: Patient is postmenopausal. No history of vaginal bleed ; Denies dysuria, hematuria or urinary frequency Musculoskeletal Musculoskeletal: Reports other Details: Pain left inguinal area, buttocks and thigh ; Denies arthralgias, back pain, myalgias or neck pain Integumentary Denies abscess, Abrasions or rash Neurologic Neurologic: Denies headache(s), paresthesias or weakness Hematologic/Lymphatic Hematologic/Lymphatic: Denies easy bleeding or easy bruising EXAM Physical Exam Const Vital Signs: 12/08/24 06:51 Temperature 97.7 F L Temperature Source Oral Pulse Rate 66 Respiratory Rate 14 Blood Pressure 148/81 H (more content not included)... Normal [facility] Erythrocyte Sed Rateon 12-08 SED RATE 5 mm/hr Normal 0-30 [facility] Comment on above: Performed By: #### L 101.9900, L500.4050, L100.0100 #### [facility] [address] [place], [address] HIP, UNI W/ Pelvis 2-3 Views on 12-08-2024 HIP, UNI W/ Pelvis 2-3 Views [facility] Imaging Services [address] [place] [address] HIP, UNI W/ Pelvis 2-3 Views MR#: [id number] Acct: [id number] Name: GIOVANNA NATION Rep #: [id number] : 1960 F 64 From: Luis Alberto Ruth MD PCP: Dr. Leonarda Boykin MD Status: REG ER Study: HIP, UNI W/ Pelvis 2-3 Views Date of Exam: Exam# [id number] Ordering Dr: Sheng Ward MD PROCEDURE: HIP, UNI W/ PELVIS 2-3 VIEWS 12/08/2024 REASON FOR EXAM: INJURY/PAIN TECHNIQUE: AP pelvis two views left hip, 3 total images COMPARISON: None available FINDINGS: No fracture or dislocation. Symmetric appearing SI joints and pubic symphysis appear within limits. The joint spaces appear within limits. Bilateral tubal ligation clips noted. RAD/HIP, UNI W/ Pelvis 2-3 Views IMPRESSION: No fracture or dislocation. Reading Location: [facility] CC: Dr. Leonarda Boykin MD; Dr. Sheng Ward MD Unix Consultant: Signed Normal [facility] Re-Evaluation - PT (1)on Re-Evaluation - PT (1) [facility] [place] [address] / REEVALUATION / MEDICARE RECERTIFICATION PHYSICAL THERAPY MR#: [id number] Acct: [id number] Name: GIOVANNA NATION Rep #: [id number] : 1960 64 From: Armando Miranda DPT, OCS, CSCS Referring Dr.: Dr. Derrell Hollingsworth MD Status:REG RCR Insurance: MEDICARE PART A B SELF PAY INSURANCE Re-Evaluation Intro: Dr. Derrell Hollingsworth MD, It has been my pleasure to treat GIOVANNA NATION over the last 10 visits for neck pain. Please see the progress note below for an update on the physical therapy plan of care! Subjective Subjective: Had visit with pain management who offered injection, pt thinking about it. We are getting someewhere slowly. Last night was a bad night with arm leg goofy feeling symptoms and does not know why. That is gone for days and then might comee back for a day. Did nothing out of the ordinary yesterday. Drove to [place]. Neck pain over the last week 01/22. It is better with ROM. Pain is less frequent, more days without much pain. Sleep is OK most nights but last night was worse. Objective Objective/Function: 68 L rotation and 72 R rotation adn 52 extension, slight pain.Improved. Pt with improved pain but hard time telling me how much. Moving well adn full of anxiety about other treatments today. strength in UE 4- without myotomal problems. Persistent intermittent neck pain and feeling of weeakness in arms and legs are frustrating for patient, recommended pain doctor treatment and then f/u for ROM check and ex progression or manual afteer that if needed, pt to call. Plan Plan Plan: recommended pain doctor treatment and then f/u for ROM check and ex progression or manual afteer that if needed, pt to call. Balance/Gait/Functional tests Balance/Special Test Scores Oswestry Neck Score: 28 Goals Goals Goal 1:: 55 R rotation adn 50 ext to limit future problems Goal Time Frame: 4-6 Weeks Goal Progress: Goal Met Goal 2:: Pt feel pain is 75% better at 1/10 at worst in neck and manageable Goal Time Frame: 4-6 Weeks Goal Progress: Progressing Goal 3:: I appropriate HEP to limit future pain in neck and maximize motion and strength Goal Time Frame: 4-6 Weeks Goal Progress: Goal Met Goal 4:: oswestry score 5 or better Goal Time Frame: 4-6 Weeks Goal Progress: Not Progressing Anticipated Interventions Anticipated Interventions Patient/Client Instruction: Educate patient on: Condition and Plan of Care For the Purpose of:: To decrease pain, To increase ROM, To improve nutrient delivery to tissue and To increase tolerance to activity/condition/posi tion Therapeutic Exercise to Include: Strength training, Flexibilty training, Passive ROM and Active ROM For the Purpose of:: To decrease pain, To increase ROM, To improve nutrient delivery to tissue, To improve muscle performance and motor function and To increase tolerance to activity/condition/posi tion Manual Therapy Techniques to Include: Mobilization, Passive ROM and Soft tissue mobilization For the Purpose of:: To decrease pain, To increase ROM, To improve nutrient delivery to tissue, To increase tolerance to activity/condition/posi tion and To increase flexibility/ROM Thermo therapy (hot pack): Yes For the Purpose of:: To decrease pain and To improve nutrient delivery to tissue Re-Evaluation Ending Re-evaluation ending: Please do not hesitate to contact me at [phone] by phone or if you have questions or concerns regarding this new plan of care! Sincerely, Armando Miranda, DPT, OCS, CSCS 11/28/24 1059 CC: Dr. Derrell Hollingsworth MD; No Primary Care Physician EBG Signed For Medicare only, by signing this I certify the plan of care. Physicians Signature Date Normal [facility] T4 Total, Thyroxinon 025 T4 [Mass/Vol] 6.0 ug/dL Normal 4.8-13.9 [facility] Comment on above: Performed By: #### L 501.9310, L501.2720 #### [facility] [address], [place], [id number] Thyroid Stim Hormone (TSH)on 11-25-2024 TSH 0.998 uIU/mL Normal 0.300-4.200 [facility] Comment on above: Performed By: #### L 501.9310, L501.6920 #### [facility] [address] [place], [place], [id number] CNPNon 11-17-2024 CNPN Telephone ([facility]) GIOVANNA NAITON ([id number]) 1960 F Date Time Provider Department 11/17/24 LEONARDA BOYKIN During your visit today, we recorded the following information about you: Margaret Mehta 11/17/2024 1:26 PM Signed Patient is calling to request a referral to a Gastro provider, and asked if the referral once placed can be faxed to his office. To: Dr. Davidson Mack Phone number - [phone] Fax number - [phone] [facility] 11/17/2024 2:08 PM Signed Please advise patient when this order has been faxed, she can be reached at [phone] Leonarad Boykin MD 11/18/2024 12:16 PM Signed No problem but need to know what the referral is for? Why does she need to see a gastro doc? La Nena Mack LPN 11/18/2024 12:37 PM Signed LM for patient to call the office to let us know why she is needs the referral. La Nena Mack LPN [facility] 11/18/2024 1:20 PM Signed Patient calling back to explain she suffer from constipation and unable to completely empty her bowel and has black stool Transferred to nurse triage Essence Hoover RN 11/18/2024 2:04 PM Signed Called and spoke with pt to triage black stools States she has had GI issues for over a year Reports she had a c scope a couple years ago that was not successful, she was told d/t improper prep which she says is incorrect because she did the prep as she was supposed to and the prep 'did something to her mentally' Pt repeatedly brought up ER visit in Aug, states she was very unhappy with that visit. Was told she was wasting resources Attempted several times to redirect pt back to discuss black stool concern She thinks this has been ongoing for a couple weeks She is not able to have normal BM. Thinks she has been full of stool for months. Passing some small pieces of stool with straining Certain they are black and not dark brown. Denies tarry stool When asking pt if she is experiencing dizziness, lightheadedness, pallor, etc, pt would say she is not sure what is wrong with her, if its neurologic or not, but something is wrong Discussed with pt that we are needing to know this information to determine if ER visit is indicated as black stool is concerning Pt states these are not new symptoms and needs to see GI Pt requesting consult placed and notified once placed. She will schedule with the GI near her in [place] Agreeable to PCP OV if recommended Khushi Dawkins PA-C 11/18/2024 2:44 PM Signed Referral placed but should be seen sooner if not seeing GI for awhile. Khushi Dawkins PA-C Covering for Sosa Handy 11/18/2024 3:36 PM Signed Order is faxed, patient is informed. Lala Whitman 11/19/2024 11:11 AM Signed Patient calling today and states that GI did not receive the referral. Patient is asking to have the referral faxed again or emailed to [email or web address] (this is the GI department. Staci Galo MA 11/19/2024 11:37 AM Signed Faxed again and patient is aware Vivian Renee 11/19/2024 2:35 PM Signed Spoke with Juliane at [facility] office and they will need the demographic /face sheet and the order to please be refaxed as they are noting they only received a blank page with no order and black lines Please fax to : Dr. Mack La Nena Mack LPN 11/20/2024 8:44 AM Signed Order and face sheet re-faxed and received confirmation. La Nena Mack LPN Allergies As of Date: 11/17/2024 Noted Allergy Reaction FLOVENT (FLUTICASONE PROPIONATE) 10/17/2019 14 - Other: See Comments Comments: took breath away PENICILLINS 09/21/2005 2 - Rash PREDNISONE 09/21/2005 1 - Mental Status Change Comments: Depression Date Reviewed: 10/03/2024 Reviewed by: Harini Mendez MA - Fully Assessed Reason for Visit: Orders [681] Consult [502] Cmt: Gastro provider Primary Visit Diagnosis:Black stools [K92.1] Order(s):CONSULT TO GASTROENTEROLOGY [9010] Order #: [id number]: 1 FUTURE Prescriptions as of 11/20/2024 - doxepin capsule 10 mg Take 10 mg by mouth daily at bedtime. - methocarbamol (ROBAXIN) 500 mg tablet Take 1 tablet by mouth two times a day as needed. - cyanocobalamin, vitamin B-12, (VITAMIN B-12 ORAL) Take by mouth. Gummie - aspirin, enteric coated (ASPIRIN, ENTERIC COATED) 81 mg EC tablet Take 81 mg by mouth once daily. 1/2 tablet daily - cholecalciferol, vitamin D3, (VITAMIN D3 50 MCG, 2,000 UNIT, GUMMIES) - losartan-hydroCHLOROthi azide (HYZAAR) 50-12.5 mg per tablet Take 1 tablet by mouth once daily. Problem List As Of Date 11/17/2024 Noted Resolved MYALGIA AND MYOSITIS NOS [IEI7089] Tobacco use [Z72.0] 10/20/2013 01/07/2020 Depression with anxiety [F41.8] 11/19/2015 03/17/2021 Closed fracture of distal end of left radius [S*08/21/2016 07/02/2018 Shoulder stiffness [M25.619] 11/16/2016 Radiculopathy, cervical region [M54.12] 01/08 (more content not included)... Normal [facility] Inital Evaluation (1) - PTon 11-05-2024 Inital Evaluation (1) - PT [facility] [address] [place] [address]. [address] [place] [address] / REHABILITATION SERVICES INITIAL EVALUATION MR#: [id number] Acct: [id number] Name: GIOVANNA NATION Rep #: [id number] : 1960 63 From: Armando Miranda DPT, OCS, CSCS Referring Dr.: Dr. Derrell Hollingsworth MD Status: REG RCR Insurance: MEDICARE PART A B SELF PAY INSURANCE Patient's Visit Information Visit Information Visit Information: GIOVANNA NATION is a 63 year old F referred to Physical Therapy by Dr. Derrell Hollingsworth MD with a diagnosis of neck pain. Date of Evaluation: 11/05/24 Physical Therapist: Armando Miranda, DPT, OCS, CSCS Visit Plan Frequency: 2-3x /Week Duration: 4-6 Weeks Plan: 2-3x/week for 3-6 for 1. MH and STM to B neck L >R into scm and include ear pull, manual traction, PROM R rotation and ext and mobs for the same.UT stretch , lev scap stretch, SCM stretch to HEP 2. when motion better, progress to neck strength and stretching via HEP Pt to painm management in meantime Dr. Glen Araujo LBP started last week and improving.Limited motion comfort. Much education today on activity mdoifcation and R rot with OP and c/s ret/ext with OP both 10x 3x/day at [facility] Subjective Subjective: GIOVANNA NATION is a 63 year old F here today for neck pain. Hx fall and wrist fx 07/2016, cervical pinched nerve. 04/2023 neck pain worsened. Hx covid19. Hx adverse reaction for RSV vaccination with headache and neck pain. 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 Episode of RLE numbness. Recent intermittent upper extremity numbness, most noted during night. Occasional B/L upper extremity weakness. Frequent tingling B/L upper and lower extremities. Dry needling at [facility] exacerbated pain. Denies hx of chiropractic treatments, physical therapy or injections. Adverse reactions to steroids. Verified this info from ortho doctor chart. Pt recently had therapy and is doing LE strength and back movements. Had to stop for a little bit due to back pain and needed lidocaine patches. Not sure what caused that. That pain persists and is more in lumbar area. Frustrated her as she felt like she was getting better It also hurts her legs. She has had this pain before a time or two. -12/23 lately in neck. Arm symptoms feel weak and get intermittent clawing of hands and numb, tingly feeling. Sleepy feeling happens intermittently, alot at night. Activities: walking makes LB worse, sometimes neck is worsee with walking. basic ADLs all I. Retired. 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 Now that would really hurt her. Gardening is very limited last year and this year. Pain neck pain: Pain Intensity (Out of 10): 6 Pain Intensity Range: 4 and 6 Comment: L >R, neck to ear Objective Objective: 70 L rotation and 63 R with pain on L side with R rotation, 35 ext with L sided pain, retraction is limited but not painful. Posture is forward head and protracted scap and elevated scap. Tender to touch maximally in L salenes, SCM, UT and parspinals of neck, slightly on R, not in other scap mm. UE AROM WFL, reflexes 2/3 bi and tri Sensation WNL to gross light touch today. Strength is symmetrical in UE and 4-/5 throughout except B triceps 3+. No pain with these tests - c/s compression today. repeated ret/ext seems to improve R rotation with PDM today. - hoffmans today Balance/Special Test Scores Oswestry Neck Score: 23 Goals Goal 1:: 55 R rotation adn 50 ext to limit future problems Goal Time Frame: 4-6 Weeks Goal 2:: Pt feel pain is 75% better at 1/10 at worst in neck and manageable Goal Time Frame: 4-6 Weeks Goal 3:: I appropriate HEP to limit future pain in neck and maximize motion and strength Goal Time Frame: 4-6 Weeks Goal 4:: oswestry score 5 or better Goal Time Frame: 4-6 Weeks Rehabilitation Potential Physical Therapy Diagnosis: neck pain discal vs joint limiting comfortable funciton Rehabilitation Potential: Fair Anticipated Interventions Patient/Client Instruction: Educate patient on: Condition and Plan of Care For the Purpose of:: To decrease pain, To increase ROM, To improve nutrient delivery to tissue and To increase tolerance to activity/condition/posi tion Therapeutic Exercise to Include: Strength training, Flexibilty training, Passive ROM and Active ROM For the Purpose of:: To decrease pain, To increase ROM, To improve nutrient delivery to tissue, To improve muscle performance and motor function and To increase tolerance to ac tivity/condition/positi on Manual Therapy Techniques to Include: Mobilization, Passive ROM and Soft tissue mobilization For the Purpose of:: To decrease pain, To increase ROM, To improve nutrient delivery to tissue, To increase tolerance to activity/condition/posi tion and To increase flexibility/ROM Thermo therapy (hot pack): (more content not included)... Normal [facility] Cerv Spine 4 or 5 Viewson Cerv Spine 4 or 5 Views [facility] [address] [place] [address] Cerv Spine 4 or 5 Views MR#: [id number] Acct: [id number] Name: GIOVANNA NATION Rep #: [id number] : 1960 F 63 From: Luis Alberto Ruth MD PCP: Care Physician,No Primary Status: DEP AMB Study: Cerv Spine 4 or 5 Views Date of Exam: 10/31/24 Exam# [id number] Ordering Dr: Ronda German PROCEDURE: CERV SPINE 4 OR 5 VIEWS 10/31/2024 REASON FOR EXAM: CHRONIC PAIN TECHNIQUE: 4 views of the cervical spine. AP, lateral and flexion-extension COMPARISON: None available FINDINGS: Cervical spine is visualized on the lateral view from the skull base to the top of T1. No fracture or malalignment. No prevertebral soft tissue swelling. C4-5 moderate disc space narrowing C5-6 mild disc space narrowing C6-7: Vvoi-gu-ctaosvhx narrowing Not much degree of positional change from neutral to flexion or extension. No instability identified. Visualized apices appear clear. RAD/Cerv Spine 4 or 5 Views IMPRESSION: Multilevel spondylosis/discogenic change as above. Reading Location: [facility] CC: VENU Rios; No Primary Care Physician [employer] Consultant: Signed Normal [facility] Orthopedic Visit Reporton Orthopedic Visit Report [facility] [place], [place] [address] OFFICE VISIT Date of Service: 10/31/24 MR#: [id number] Acct: [id number] Name: GIOVANNA NATION Rep #: [id number] : 1960 Provider: Dr. Derrell Hollingsworth MD Age/Sex: 63/F Location: [facility] [place] Status: Signed Intake Vital Signs 11/14/23 16:35 10/31/24 14:30 Height 5 ft 3 in 5 ft 3 in Weight: 106 lb BMI 18.8 Intake Visit Reasons: CERVICAL SPINE [employer] Required: No Accompanied by: Self Is patient in pain?: Yes (neck) Pain scale (1-10): 4 Allergies Penicillins (PCN) Allergy (Verified 10/31/24 14:31) Hives prednisone Allergy (Verified 10/31/24 14:31) Unknown fluticasone (From Flovent HFA) Adverse Reaction (Verified 10/31/24 14:32) Mental status change Medications ???Medication ???Instructions ???Recorded ???Confirmed ???Type lidocaine 5 % topical patch 2 patch topical DAILY #15 ea 11/13 Rx (Lidoderm) losartan 50 mg-hydrochlorothiazide 1 tab PO DAILY 11/16/23 10/31/24 History 12.5 mg tablet Lactobacillus acidophilus 5,000 mmu cells PO QDAY 10/31/24 0 10/31/24 History (Acidophilus capsule) aspirin 81 mg chewable tablet 40.5 mg PO QDAY 10/31/24 10/31/24 History cholecalciferol (vitamin D3) 25 50 mcg PO QDAY 10/31/24 10/31/24 H istory mcg (1,000 unit) tablet cyanocobalamin (vitamin B-12) 25 50 mcg PO DAILY 10/31/24 10/31/24 History mcg tablet doxepin 10 mg capsule 10 mg PO QHS 10/31/24 10/31/24 His tory magnesium citrate 70 mg-potassium 1 cap PO QDAY 10/31/24 10/31/24 H istory citrate 99 mg capsule PFSH Medical History (Updated 11/03/24 @ 09:[address] Derrell Hollingsworth MD) Post-menopausal Hypertension Impingement of right shoulder Right shoulder pain Physical exam, pre-employment Surgical History (Updated 10/31/24 @ 14:36 by Juliane Don) Hx of appendectomy Family History (Updated 10/31/24 @ 14:58 by Juliane Don) Mother Hypertension CVA (cerebral vascular accident) Social History (Updated 10/31/24 @ 15:00 by Juliane Don) household members: none Smoking Status: Former smoker alcohol intake: never substance use type: does not use what type of physical activity do you participate in: walking frequency: 3-4 times per week do you feel safe at home: Yes HPI CERVICAL SPINE Details: This documentation accurately reflects the service provided and the decisions made by me, Dr. Derrell Hollingsworth MD 10/31/24 3001. Part of today???s visit was documented by [ ], acting as scribe. GIOVANNA NATION is a 63 year old F here today for neck pain. Hx fall and wrist fx 07/2016, cervical pinched nerve. 04/2023 neck pain worsened. Hx covid19. Hx adverse reaction for RSV vaccination with headache and neck pain. 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 Episode of RLE numbness. Recent intermittent upper extremity numbness, most noted during night. Occasional B/L upper extremity weakness. Frequent tingling B/L upper and lower extremities. Dry needling at [facility] exacerbated pain. Denies hx of chiropractic treatments, physical therapy or injections. Adverse reactions to steroids. ROS Const Denies chills, Denies fatigue, Denies fever(s), Denies frequent falls, Reports headache(s) and Denies weakness ENT Reports headache(s) Card Denies chest pain and Denies dyspnea Resp Denies dyspnea GI Denies abdominal pain, Reports constipation, Denies diarrhea, Denies fecal incontinence, Denies nausea and Denies vomiting Denies urinary incontinence Musc Denies arthralgias, Denies joint swelling, Reports numbness, Denies stiffness and Reports tingling Skin/Breast Denies rash Neuro No convulsions, No frequent falls, Yes headache(s), Yes numbness, Yes tingling and No weakness Endo Denies fatigue Ortho Exam General General: Yes no acute distress Neurologic: Yes alert and Yes oriented x3 Spine SPINE TESTING CERVICAL THORACIC LUMBAR Musculoskeletal Strength 0=absent - 5=normal Details: Examination of the neck shows midline and paraspinal tenderness throughout the cervical spine. Neurological addition of upper extremity shows 5 x 5 following motion was normal sensations in all documents. Ashly's is positive on the left. Romberg's is positive. Tandem gait shows mild imbalance. Left knee reflexes brisk. Coding Level of Care Code Off vis,new,level 4 Diagnoses Cervical myelopathy with cervical radiculopathy G95.9; M54.12 Time Spent (min) 45 Assessment and Plan Assessment and Plan (1) Cervical myelopathy with cervical radiculopathy: Status: Acute Orders: Orders Cerv Spine 4 or 5 Views 10/31/24 VENU Rios M54.2 - Cervicalgia Referrals Physical Therapy Referral Dr. Derrell Hollingsworth MD M54.2 - Cervicalgia Plan (more content not included)... Normal [facility] PT D/C Summary (1)on 025 PT D/C Summary (1) [facility] [address] [place] [address] / REHABILITATION SERVICES DISCHARGE SUMMARY MR#: [id number] Acct: [id number] Name: GIOVANNA NATION Rep #: [id number] : 1960 63 From: Armando Miranda DPT, OCS, CSCS Referring Dr.: OUT OF TOWN DOCTOR Status: REG R CR Insurance: MEDICARE PART A B SELF PAY INSURANCE Discharge Summary D/C summary: It has been my pleasure to treat GIOVANNA NATION referred by CARLOTTA ARCHER, with the diagnosis of Myalgias for a total of 13 visit(s). Discharge Date: 10/23/24 Please see the following information for a summary of their discharge status. Subjective Subjective: I thought I was getting better. Work on next last session brought back some tightness in legs. Overall felt better about 40% and arms feel weak and legs feel tight and tired. Will see Dr. Hollingsworth next week. He will look at neck. Strength is better but weird bizarre feeling is back in legs. [facility]. Pain Pain legs: Pain Intensity (Out of 10): 7 bilat SI: Pain Intensity (Out of 10): 0 neck: Pain Intensity (Out of 10): 7 bilat UE: Pain Intensity (Out of 10): 7 Overall Improvement % Improvement: 60 Objective Objective/Function: Odd symptoms with anamika having difficulty putting them into words just saying bizarre feeling in legs and sometimes tightness. Focussed on the start of this which wasz with dry needling to her neck at another clinic. Was doing better but manual therapy with release to neck has brought back some of the goofy feeling throughout body. Muscle of LE are not overly tight. Lumbar area moving well with only minimal limitations in ROM ext and flexion adn SB looking good and painfree today. No myotomal abnormalites in legs today. Walking normal. Goals Goal 1:: Sleep 6 hours without waking due to pain Goal Progress: doxepam, 8 hrs Goal 2:: Pain in lower legs and tingling 75% better and 2/10 at worst Goal Progress: Not Progressing Goal 3:: I approrpiate HEP to limit future problems Goal Progress: Goal Met Goal 4:: lumbar and pelvic ROM without pain or hesitation Goal Progress: Goal Met Plan Plan: d/c due to lack of improvement, pt to get back to doctor and continue HEP and gym ex. D/C Information Discharge Comments: Pt not making consistent improvement in subjective complaints and will see aviation medicine specialist next week. d/c sentence: If there are questions or concerns regarding this patient's physical therapy, please feel free to call me at [phone]. Thank you for the referral of this patient. Sincerely, Armando Miranda, DPT, OCS, CSCS Balance/Gait/Functional tests Balance/Special Test Scores Oswestry Low Back Score: 20 Improvement % Improvement: 60 10/23/24 1356 CC: CARLOTTA ARCHER; No Primary Care Physician EBG Signed Normal [facility] 10-03-2024 [facility] Office Visit ([facility] ) GIOVANNA NATION ([id number]) 1960 F Date Time Provider Department 10/03/24 4:00 PM LEONARDA BOYKINDNA During your visit today, we recorded the following information about you: Temperature Pulse Respiration Blood pressure 97.5 degrees 86/minute 16/minute 105/67 Weight 46.5 kg Harini Mendez MA 10/03/2024 4:46 PM Signed Shingrix Vaccine(1 of 2) Never done Pneumococcal Vaccine: 50+(2 of 2 - PCV) due on 03/05/2018 Mammogram Screening due on 03/03/2022 Influenza Vaccine(1) Never done Covid-19 Vaccine(2023- season) due on 03/16/2024 Leonarda Boykin MD 10/03/2024 4:46 PM Signed Patient presents with: Follow Up HPI: Giovanna Nation is a 63 year old female who presents to the office today for follow up. Follow up blue toes Saw vascular who felt like this wasn't anything vascular, thought more related to venous stasis. Hx of adhd - sees psychiatrist ot [facility] in [place] - she wanted to stop strattera and resume doxepin. Has helped her anxiety, insomnia - doing better so far. HTN Losartan/hctz Bps well controlled Hasn't felt well since she had covid, then had RSV vaccine in 04/2023 - got sic the next day and had cramps, eventually went away until 06/2024 when she went to urgent care Diffuse muscle cramps mostly at night, feels like something is pressing on her body. Labs all normal last visit Tried muscle relaxer which helped a lot - methacarbamol helped a lot. C/o pain in her bilateral inguinal region, R>L, maybe for years. Bilateral lower extremity pain and tingling, wakes up with her arms tingling Had MRI c spine in 01/2024 - mild developmental c spine stenosis Doing PT at [facility] for her low back - seems to be helping. Ct lumbar spine 08/2024 - foraminal narrowing to the left on L4-L5 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 mention of hyperactivity Adult Closed fracture of distal end of left radius 08/21/2016 Excessive or frequent menstruation History of colonoscopy 12/2020 Myalgia and myositis, unspecified Primary hypertension 12/30/2023 PAST SURGICAL HISTORY Procedure Laterality Date APPENDECTOMY APPENDECTOMY HX LIG/TRNSXJ FLP TUBE ABDL/VAG APPR UNI/BI Tubal ligation FAMILY HISTORY Problem Relation Age of Onset Cancer Mother Cervical cancer- treated Psychiatry Sister suicide Ischemic Heart Disease Brother 60 [place], heavy smoker, Etoh Psychiatry Son Opoid dependency Cancer Other Niece (sister's daughter) Social History Tobacco Use Smoking status: Former Current packs/day: 0.50 Types: Cigarettes Smokeless tobacco: Never Vaping Use Vaping status: Former Substance Use Topics Alcohol use: No Drug use: Never ACTIVE PROBLEM LIST Myalgia and Myositis, Unspecified Shoulder Stiffness Radiculopathy, Cervical Region 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 Primary Osteoarthritis of First Carpometacarpal Joint of Left Hand Lateral Epicondylitis of Left Elbow Cubital Tunnel Syndrome On Left Pain in Left Wrist Chronic Left Shoulder Pain Pain in Left Elbow Numbness and Tingling in Left Upper Extremity Tobacco Abuse, in Remission Vitamin D Deficiency Vitamin B12 Deficiency Mdd (Major Depressive Disorder), Recurrent Episode, Severe (Hcc) Acute Pain of Right Shoulder New Daily Persistent Headache Adhd Primary Hypertension Left Facial Numbness Headache Raynaud's Disease Without Gangrene ALLERGIES Allergen Reactions Flovent [Fluticason* Other: See Comments took breath away Penicillins Rash Prednisone Mental Status Change Depression MEDICATIONS: doxepin capsule 10 mg Take 10 mg by mouth daily at bedtime. cyanocobalamin, vitamin B-12, (VITAMIN B-12 ORAL) Take by mouth. Gummie aspirin, enteric coated (ASPIRIN, ENTERIC COATED) 81 mg EC tablet Take 81 mg by mouth once daily. 1/2 tablet daily cholecalciferol, vitamin D3, (VITAMIN D3 50 MCG, 2,000 UNIT, GUMMIES) losartan-hydroCHLOROthi azide (HYZAAR) (more content not included)... Normal [facility] CNOVon 09-24-2024 CNOV Office Visit (PERVMN ) GIOVANNA NATION ([id number]) 1960 F Date Time Provider Department 09/24/24 9:00 AM DONNA MCNEIL During your visit today, we recorded the following information about you: Pulse Blood pressure Weight 75/minute 126/76 45.8 kg Donna Mcneil DO 09/24/2024 10:54 AM Signed [facility] [place] Shahriar Stringer Department of Cardiovascular Medicine SECTION OF VASCULAR MEDICINE OUTPATIENT VISIT DATE September 24, 2024 OUTPATIENT VISIT TYPE CONSULTATION Consult regarding: Tingling and numbness sensation involving upper and lower extremities. Consult requested by: Michael Flynn My final recommendations will be communicated back to the requesting physician by way of the shared medical record or by letter. Primary care physician: Leonarda Boykin MD History of present illness: The patient is a 63-year-old female with a medical history significant for essential hypertension, former tobacco use, and major depressive disorder. She presents today with a chief complaint of generalized pain affecting the shoulders, upper extremities, lower extremities, and back, accompanied by tingling and numbness in the same distribution. These symptoms have been present for approximately 1 year and 5 months and have progressively worsened over this time. The patient also reports bilateral upper extremity weakness, particularly when lying flat in bed. She denies any swelling, ulcerations, or wounds in the extremities. The patient had a normal PVR on 08/25/2024. Additionally, extensive imaging studies, including a CTA of the abdomen, pelvis, and lower extremities with IV contrast, were unremarkable for vascular pathology. The patient acknowledges experiencing anxiety related to her symptoms, as well as insomnia, which has required medication. Allergies: is allergic to flovent [fluticasone propionate], penicillins, and prednisone. Medications: aspirin, enteric coated (ASPIRIN, ENTERIC COATED) 81 mg EC tablet Take 81 mg by mouth once daily. 1/2 tablet daily aspirin-omeprazole 81-40 mg TbID Take 81 mg by mouth once daily. Half tab daily (Patient not taking: Reported on 09/09/2024) cholecalciferol, vitamin D3, (VITAMIN D3 50 MCG, 2,000 UNIT, GUMMIES) cyanocobalamin/thiamine HCl (WESLEY-B-12 ORAL) Take by mouth. gabapentin (NEURONTIN) 100 mg capsule Take 1 capsule by mouth four times daily for 180 days.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 results found for: [facility] [place] Results Component Value Date CHOL 165 06/13/2022 CHOL 175 05/08/2021 CHOL 185 06/12/2018 Lab Resul (more content not included)... Normal [facility] CNPRosaura 09-03-2024 CNPN Telephone (FAMDNA) GIOVANNA NATION ([id number]) 1960 F Date Time Provider Department 09/03/24 LEONARDA BOYKIN During your visit today, we recorded the following information about you: Vicentegloria TadeoMichael 09/03/2024 9:27 AM Signed Giovanna is calling Leonarda Boykin MD today with concern regarding Results/ Labs Patient is calling in today for lab results. Patient has been identified by name and birthdate. Duration of symptoms: N/A Person calling: self Call patient at: at home [phone] (home) [phone] (cell) Was an appointment scheduled: No Closing statement: Results or non-symptom based questions: Thank you for calling [facility], your call will be returned within the next business day. Michael Leonarda Rowland MD 09/05/2024 10:36 AM Signed Blood work all normal. Vitamin b12 a little high, but not concerning. Recommend keeping appointment with vascular doctor for next steps. La Nena Mack LPN 09/05/2024 11:39 AM Signed Patient aware, verbalized understanding. La Nena Mack LPN Allergies As of Date: 09/03/2024 Noted Allergy Reaction FLOVENT (FLUTICASONE PROPIONATE) 10/17/2019 14 - Other: See Comments Comments: took breath away PENICILLINS 09/21/2005 2 - Rash PREDNISONE 09/21/2005 1 - Mental Status Change Comments: Depression Date Reviewed: 08/25/2024 Reviewed by: La Nena Mack LPN - Fully Assessed Reason for Visit: Results [95] Prescriptions as of 09/05/2024 - aspirin-omeprazole 81-40 mg TbID Take 81 mg by mouth once daily. Half tab daily - cholecalciferol, vitamin D3, (VITAMIN D3 50 MCG, 2,000 UNIT, GUMMIES) - cyanocobalamin/thiamine HCl (WESLEY-B-12 ORAL) Take by mouth. - gabapentin (NEURONTIN) 100 mg capsule Take 1 capsule by mouth four times daily for 180 days. - methocarbamol (ROBAXIN) 500 mg tablet Take 1 tablet by mouth three times a day for 14 days. - NIFEdipine ER (PROCARDIA XL) 30 mg 24 hr tablet Take 1 tablet by mouth once daily. - losartan-hydroCHLOROthi azide (HYZAAR) 50-12.5 mg per tablet Take 1 tablet by mouth once daily. - multivit-min/ferrous fumarate (MULTI VITAMIN ORAL) Take by mouth. Problem List As Of Date 09/03/2024 Noted Resolved MYALGIA AND MYOSITIS NOS [[id number]] Tobacco use [Z72.0] 10/20/2013 01/07/2020 Depression with anxiety [F41.8] 11/19/2015 03/17/2021 Closed fracture of distal end of left radius [S*08/21/2016 07/02/2018 Shoulder stiffness [M25.619] 11/16/2016 Radiculopathy, cervical region [M54.12] 01/08/2017 Reflex sympathetic dystrophy of left upper extr*01/10/2017 Primary osteoarthritis of first carpometacarpal* 017 Lateral epicondylitis of left elbow [M77.12] 03/07/2017 Cubital tunnel syndrome on left [G56.22] 03/07/2017 Pain in left wrist [M25.532] 05/16/2017 Chronic left shoulder pain [M25.512, G89.29] 05/16/2017 Pain in left elbow [M25.522] 05/30/2017 Numbness and tingling in left upper extremity [*05/30/2017 Tobacco abuse, 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] 01/07/2020 Vitamin D deficiency [E55.9] 01/07/2020 Vitamin B12 deficiency [E53.8] 01/07/2020 MDD (major depressive disorder), recurrent epis*05/07/2021 Acute pain of right shoulder [M25.511] 11/20/2023 New daily persistent headache [G44.52] 12/28/2023 ADHD [F90.9] 12/30/2023 Primary hypertension [I10] 12/30/2023 Left facial numbness [R20.0] 12/30/2023 Headache [R51.9] 01/14/2024 Raynaud's disease without gangrene [I73.00] 08/08/2024 Encounter Status:Closed by LA NENA MACK on 09/05/24 Normal [facility] C-REACTIVE PROTEINon 025 CRP [Mass/Vol] mg/dL NINF - 0.9 mg/dL [facility] CK SerPl-cCncon 08-25-2024 CK [Catalytic activity/Vol] 74 U/L Normal 42-196 [facility] Comment on above: Order Comment: Speci men Type: BLOOD SPECIMENOrdering Facility: [facility] Address: [address], [place] [address] Performed By: #### 3 016-3, 2157-6, 1987-11 ####[facility] [id number] [place] [id number] [facility] CNOVon 08-25-2024 CNOV Office Visit (FAMDNA ) GIOVANNA NATION ([id number]) 1960 F Date Time Provider Department 08/25/24 1:00 PM LEONARDA BOYKIN During your visit today, we recorded the following information about you: Temperature Pulse Blood pressure Weight 98.6 degrees 86/minute 136/78 45.9 kg Height 1.6 m Leonarda Boykin MD 08/25/2024 2:18 PM Signed Patient presents with: ER F/U: Multiple issues HPI: Giovanna Nation is a 63 year old female who presents to the office today for er follow up. C/o feeling like her whole body is in spasm. Started back in May in her abdomen, a tightening sensation. Now its all over. C/o weakness in her shoulders, pain in her shoulders. When she lays down at night, feels like her body is constricting or theres pressure on her body, like her veins and organs tighten up. Occurs in the daytime but not as bad. Has noticed some light red bumps on her arms, sternum for a few days. Feels cold. Arms tingling. Had covid in 2019, then in 05/2021 had severe depression - admitted to [facility]. Did get better Rsv vaccine in 04/2023 - had lunch with her brother and got sick that day, cough, sob. Had lunch with her brother again in April and may in 2023 Had cbc, cmp, cta abd/pelvis, ct lumbar spine Was taking gabapentin for headaches, but stopped it. 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 mention of hyperactivity Adult Closed fracture of distal end of left radius 08/21/2016 Excessive or frequent menstruation History of colonoscopy 12/2020 Myalgia and myositis, unspecified Primary hypertension 12/30/2023 PAST SURGICAL HISTORY Procedure Laterality Date APPENDECTOMY APPENDECTOMY HX LIG/TRNSXJ FLP TUBE ABDL/VAG APPR UNI/BI Tubal ligation FAMILY HISTORY Problem Relation Age of Onset Cancer Mother Cervical cancer- treated Psychiatry Sister suicide Ischemic Heart Disease Brother 60 [place], heavy smoker, Etoh Psychiatry Son Opoid dependency Cancer Other Niece (sister's daughter) Social History Tobacco Use Smoking status: Former Current packs/day: 0.50 Types: Cigarettes Smokeless tobacco: Never Vaping Use Vaping status: Former Substance Use Topics Alcohol use: No Drug use: Never ACTIVE PROBLEM LIST Myalgia and Myositis, Unspecified Shoulder Stiffness Radiculopathy, Cervical Region 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 Primary Osteoarthritis of First Carpometacarpal Joint of Left Hand Lateral Epicondylitis of Left Elbow Cubital Tunnel Syndrome On Left Pain in Left Wrist Chronic Left Shoulder Pain Pain in Left Elbow Numbness and Tingling in Left Upper Extremity Tobacco Abuse, in Remission Vitamin D Deficiency Vitamin B12 Deficiency Mdd (Major Depressive Disorder), Recurrent Episode, Severe (Hcc) Acute Pain of Right Shoulder New Daily Persistent Headache Adhd Primary Hypertension Left Facial Numbness Headache Raynaud's Disease Without Gangrene ALLERGIES Allergen Reactions Flovent [Fluticason* Other: See Comments took breath away Penicillins Rash Prednisone Mental Status Change Depression MEDICATIONS: NIFEdipine ER (PROCARDIA XL) 30 mg 24 hr tablet Take 1 tablet by mouth once daily. losartan-hydroCHLOROthi azide (HYZAAR) 50-12.5 mg per tablet Take 1 tablet by mouth once daily. gabapentin (NEURONTIN) 100 mg capsule Take 1 capsule by mouth four times daily for 180 days. methocarbamol (ROBAXIN) 500 mg tablet Take 1 tablet by mouth three times a day for 14 days. multivit-min/ferrous fumarate (MULTI VITAMIN ORAL) Take by mouth. (Patient not taking: Reported on 08/25/2024) EXAM:BP 136/78 Pulse 86 Temp 37 ?C (98.6 ?F) (Temporal) Ht 160 cm (5' 2.99) Wt 45.9 kg (101 lb 3.1 oz) LMP 02/11/2006 SpO2 100% BMI 17.93 kg/m? Last Wt 08/25/24 : 45.9 kg (101 lb 3.1 oz) 08/20/24 : 45.4 kg (100 lb) 08/08/24 : 45.6 kg (100 lb 8.5 oz) 07/28/24 : 45 kg (99 lb 3.3 oz) PHYSICAL EXAM: General Appearance: Well appearing, aler (more content not included)... Normal [facility] CREATINE KINASE/CKon 025 CK [Catalytic activity/Vol] 74 U/L 42 - 196 U/L [facility] CRP SerPl-mCncon 08-25-2024 CRP [Mass/Vol] mg/L Normal <0.9 [facility] Comment on above: Order Comment: Speci men Type: BLOOD SPECIMENOrdering Facility: [facility] Address: [address] [place] [address] Performed By: #### 3 016-3, 2157-6, 1987-11 ####[facility]ORYCLIA [id number] [place] [address] [place] Cobalamin (Vitamin B12) [Mas s/Vol]on 08-25-2024 Interpretation and review of laboratory results Abnormal [facility] ESR Westergren method (Bld) [Velocity]on 08-25-2024 ESR (Bld) [Velocity] 2 mm/h Normal 0-20 [facility] Comment on above: Order Comment: Speci men Type: BLOOD SPECIMEN Ordering Facility: [facility] Address: [address] [place] [address] Performed By: #### 4 537-7 #### [facility] CLIA [id number] [address] [place] [address] [id number] [place] [address] [place] No Panel Informationon 08-25 Interpretation and review of laboratory results Normal [facility] PVR LEG DEYA VAS LABon 2024 PVR LEG [facility] Non-Invasive Vascular Laboratory [facility] Lower Extremity Arterial Physiology Study Bilateral/Complete Date of service/time: 08/25/2024 9:12:43 AM Name: MS. GIVOANNA NATION Date of : 1960 Age: 63 years Gender: F Clinical Indication Pain in leg. TECHNIQUE -------- An arterial physiological examination was performed, including measurement of blood pressures using continuous wave Doppler and recording of plethysmographic with or without Doppler waveforms at the below-mentioned limb segments. FINDINGS -------- RIGHT SIDE AT REST Right Doppler Waveforms Dorsalis pedis: Multiphasic. Post tibial: Multiphasic. Right Pressures Brachial: 116 mmHg Ankle dorsalis pedis: 122 mmHg KEVIN: 1.05 Ankle posterior tibial: 124 mmHg KEVIN: 1.07 Digit: 88 mmHg Right PVR Waveforms High thigh: Normal. Low thigh: Normal. Calf: Normal. Ankle: Normal. Transmetatarsal: Normal. Digit: Normal. LEFT SIDE AT REST Left Doppler Waveforms Dorsalis pedis: Multiphasic. Post tibial: Multiphasic. Left Pressures Brachial: 115 mmHg Ankle dorsalis pedis: 131 mmHg KEVIN: 1.13 Ankle posterior tibial: 129 mmHg KEVIN: 1.11 Digit: 81 mmHg Left PVR Waveforms High thigh: Normal. Low thigh: Normal. Calf: Normal. Ankle: Normal. Transmetatarsal: Normal. Digit: Normal. IMPRESSION RIGHT SIDE Resting right ankle brachial index: 1.07 Right toe brachial index: 0.76 Normal ankle brachial index at rest in the right leg. Normal toe brachial index at rest in the right leg. Right ankle: Normal at rest. LEFT SIDE Resting left ankle brachial index: 1.13 Left toe brachial index: 0.70 Normal ankle brachial index at rest in the left leg. Normal toe brachial index at rest in the left leg. Left ankle: Normal at rest. Technologist: Madai Harris RVT, RDMS Ordering physician: MICHAEL FLYNN Interpreting physician: AWAIS Loza MD Final CC Proton Therapy Medical Image : [id number] ISUID See Link below for Image Normal [facility] Reagin and Treponema pallidu m IgG and IgM [Interp]on 08-25-2024 T. pallidum IgG+IgM IA Ql (S) Non-Reactive Normal Nonreactive [facility] Comment on above: Order Comment: Speci men Type: BLOOD SPECIMENOrdering Facility: [facility] Address: [address] [place] [address] Performed By: #### 7 3752-8 ####[facility] LABCLIA [id number] [place] [address] [place] Reagin+T pallidum IgG+IgM Se [facility]-Impon 08-25-2024 Reagin and Treponema pallidum IgG and IgM [Interp] Cannot exclude recent Treponemal infection if specimen collected within 7-10 days after appearance of suspect lesions or 2-3 weeks after an exposure. Clinical correlation is required. Normal [facility] Comment on above: Order Comment: Speci men Type: BLOOD SPECIMENOrdering Facility: [facility] Address: [address] [place] [address] Performed By: #### 7 3752-8 ####[facility] LABCLIA [id number] [facility] [id number] [place], [place] [id number] [place] Rheumatoid fact SerPl-aCncon 08-25-2024 Rheumatoid factor Qn [IU]/mL Normal <16 [facility] Comment on above: Order Comment: Speci men Type: BLOOD SPECIMEN Ordering Facility: [facility] Address: [address] [place] [address] Performed By: #### 5 7021-8 #### [facility] CLIA [id number] [address] [place] [address] [place] T4 Free SerPl-mCncon 025 Free T4 [Mass/Vol] 1.0 ng/dL Normal 0.9-1.7 [facility] Comment on above: Order Comment: Speci men Type: BLOOD SPECIMEN Ordering Facility: [facility] Address: [address] [place] [address] Performed By: #### 5 7021-8 #### [facility] CLIA [id number] [address] [place] [address] [place] THYROID STIMULATING HORMONEo n 08-25-2024 TSH Qn 1.15 m[IU]/L [facility] TSH Qnon 08-25-2024 Interpretation and review of laboratory results Normal [facility] TSH SerPl-aCncon 08-25-2024 TSH Qn 1.150 m[IU]/L Normal 0.270-4.200 [facility] Comment on above: Order Comment: Speci men Type: BLOOD SPECIMENOrdering Facility: [facility] Address: [address] [place] [address] Performed By: #### 3 016-3, 2157-6, 1987-11 ####[facility]ORYCLIA [id number] [place] [address] [place] VITAMIN B12on 08-25-2024 Cobalamin (Vitamin B12) [Mass/Vol] 1385 pg/mL High 232 - 1245 pg/mL [facility] Vit B12 SerPl-mCncon 025 Cobalamin (Vitamin B12) [Mass/Vol] 1385 pg/mL High 232-1245 [facility] Comment on above: Order Comment: Speci men Type: BLOOD SPECIMENOrdering Facility: [facility] Address: [address] [place] [address] Performed By: #### 2 132-9 ####[facility]ATORYCLIA [id number] [place] [address] [facility] ALLIED HEALTHon 08-20-2024 [facility] HNO ID: [id number] Author: JELANI AVELAR RT(Clem) Service: Radiology Author Type: Technologist Type: Allied Health Filed: 08/20/2024 14:38 Note Text: Radiology Service Progress Note PATIENT NAME: Giovanna Nation DATE OF SERVICE: August 20, 2024 TIME: 2:38 PM PATIENT IDENTITY VERIFICATION COMPLETED USING TWO (2) IDENTIFIERS: Name and Date of confirmed by patient verbally and Name and Date of confirmed by identification band. FALL SCREENING: Has the patient had 2 falls in the last year or 1 fall with injury or currently using an Ambulatory Assistive Device (Walker, Cane, Wheelchair, Crutches, etc.)? No PATIENT GENDER DATA: Assigned female at . status: : No status: NO. PATIENT RELEVANT IMPLANT DATA REVIEWED: Not Applicable PATIENT PRESENTS WITH AN IMPLANTABLE OR ATTACHED JAVA LEAD ENGINEER: No RADIOLOGY DEPARTMENT: CT; Exam(s) Completed: CTA Aorta/leg runoff PERIPHERAL IV DATA: Site assessment: Clean,Dry and Intact, Site disposition Left in for next appointment SIGNED BY: RT Hemant(Clem) August 20, 2024 2:38 PM [facility] HNO ID: [id number] Author: MIMI RODRIGUEZ RT(Clem) Service: Radiology Author Type: Technologist Type: Allied Health Filed: 08/20/2024 12:50 Note Text: Radiology Service Progress Note PATIENT NAME: Giovanna Nation DATE OF SERVICE: August 20, 2024 TIME: 12:50 PM PATIENT IDENTITY VERIFICATION COMPLETED USING TWO (2) IDENTIFIERS: Name and Date of confirmed by patient verbally. FALL SCREENING: Has the patient had 2 falls in the last year or 1 fall with injury or currently using an Ambulatory Assistive Device (Walker, Cane, Wheelchair, Crutches, etc.)? No PATIENT GENDER DATA: Assigned female at . status: : No status: N/A PATIENT RELEVANT IMPLANT DATA REVIEWED: Not Applicable PATIENT PRESENTS WITH AN IMPLANTABLE OR ATTACHED JAVA LEAD ENGINEER: No RADIOLOGY DEPARTMENT: General X-ray: Exam(s) Completed: Spine X-Ray(s): Lumbar AP / LAT / L5-S1 PERIPHERAL IV DATA: Not applicable SIGNED BY: RT Kory(R) August 20, 2024 12:50 PM Normal [facility] CBC W Auto Differential pane l (Bld)on 08-20-2024 Basophils (Bld) [#/Vol] 0.03 10*3/uL Normal <0.11 [facility] Comment on above: Order Comment: Speci men Type: BLOOD SPECIMEN Ordering Facility: [facility] Address: [address] [place] [address] Performed By: #### 5 7021-8 #### [facility] CLIA [id number] [address] Basophils/100 WBC (Bld) 0.5 % Normal [facility] Comment on above: Order Comment: Speci men Type: BLOOD SPECIMEN Ordering Facility: [facility] Address: [address] [place] [address] Performed By: #### 5 7021-8 #### [facility] CLIA [id number] [address] Differential cell count method Nom (Bld) Auto Normal [facility] Comment on above: Order Comment: Speci men Type: BLOOD SPECIMEN Ordering Facility: [facility] Address: [address] [place] [address] Performed By: #### 5 7021-8 #### [facility] CLIA [id number] [address] [place] [address] [place] Eosinophils (Bld) [#/Vol] 0.05 10*3/uL Normal <0.46 [facility] Comment on above: Order Comment: Speci men Type: BLOOD SPECIMEN Ordering Facility: [facility] Address: [address] [place] [address] Performed By: #### 5 7021-8 #### [facility] CLIA [id number] 1000 [place] [address] [place] Eosinophils/100 WBC (Bld) 0.8 % Normal [facility] Comment on above: Order Comment: Speci men Type: BLOOD SPECIMEN Ordering Facility: [facility] Address: [address] [place] [address] Performed By: #### 5 7021-8 #### [facility] CLIA [id number] [address] [place] Erythrocyte distribution width (RBC) [Ratio] 11.9 % Normal 11.5-15.0 [facility] Comment on above: Order Comment: Speci men Type: BLOOD SPECIMEN Ordering Facility: [facility] Address: [address] [place] [address] Performed By: #### 5 7021-8 #### [facility] CLIA [id number] [address] [place] Hematocrit (Bld) [Volume fraction] 40.1 % Normal 36.0-46.0 [facility] Comment on above: Order Comment: Speci men Type: BLOOD SPECIMEN Ordering Facility: [facility] Address: [address] [place] [address] Performed By: #### 5 7021-8 #### [facility] CLIA [id number] 1000 [place] [address] [place] Hemoglobin (Bld) [Mass/Vol] 13.3 g/dL Normal 11.5-15.5 [facility] Comment on above: Order Comment: Speci men Type: BLOOD SPECIMEN Ordering Facility: [facility] Address: [address] [place] [address] Performed By: #### 5 7021-8 #### [facility] CLIA [id number] [address] [place] Immature granulocytes (Bld) [#/Vol] 10*3/uL Normal <0.10 [facility] Comment on above: Order Comment: Speci men Type: BLOOD SPECIMEN Ordering Facility: [facility] Address: [address] [place] [address] Performed By: #### 5 7021-8 #### [facility] CLIA [id number] [address] [place] Immature granulocytes/100 WBC (Bld) 0.3 % Normal [facility] Comment on above: Order Comment: Speci men Type: BLOOD SPECIMEN Ordering Facility: [facility] Address: [address] [place] [address] Performed By: #### 5 7021-8 #### [facility] CLIA [id number] [address] [place] Lymphocytes (Bld) [#/Vol] 1.65 10*3/uL Normal 1.00-4.00 [facility] Comment on above: Order Comment: Speci men Type: BLOOD SPECIMEN Ordering Facility: [facility] Address: [address] [place] [address] Performed By: #### 5 7021-8 #### [facility] CLIA [id number] [address] Lymphocytes/100 WBC (Bld) 26.5 % Normal [facility] Comment on above: Order Comment: Speci men Type: BLOOD SPECIMEN Ordering Facility: [facility] Address: [address] [place] [address] Performed By: #### 5 7021-8 #### [facility] CLIA [id number] [address] MCH (RBC) [Entitic mass] 31.4 pg Normal 26.0-34.0 [facility] Comment on above: Order Comment: Speci men Type: BLOOD SPECIMEN Ordering Facility: [facility] Address: [address] [place] [address] Performed By: #### 5 7021-8 #### [facility] CLIA [id number] [address] MCHC (RBC) [Mass/Vol] 33.2 g/dL Normal 30.5-36.0 [facility] Comment on above: Order Comment: Speci men Type: BLOOD SPECIMEN Ordering Facility: [facility] Address: [address] [place] [address] Performed By: #### 5 7021-8 #### [facility] CLIA [id number] [address] [place] [address] [place] MCV (RBC) [Entitic vol] 94.8 fL Normal 80.0-100.0 [facility] Comment on above: Order Comment: Speci men Type: BLOOD SPECIMEN Ordering Facility: [facility] Address: [facility] [place] [address] Performed By: #### 5 7021-8 #### [facility] CLIA [id number] 1000 [place] [address] [place] Monocytes (Bld) [#/Vol] 0.47 10*3/uL Normal <0.87 [facility] Comment on above: Order Comment: Speci men Type: BLOOD SPECIMEN Ordering Facility: [facility] Address: [address] [place] [address] Performed By: #### 5 7021-8 #### [facility] CLIA [id number] [address] Monocytes/100 WBC (Bld) 7.6 % Normal [facility] Comment on above: Order Comment: Speci men Type: BLOOD SPECIMEN Ordering Facility: [facility] Address: [address] [place] [address] Performed By: #### 5 7021-8 #### [facility] CLIA [id number] 1000 [place] [address] [place] Neutrophils (Bld) [#/Vol] 4.00 10*3/uL Normal 1.45-7.50 [facility] Comment on above: Order Comment: Speci men Type: BLOOD SPECIMEN Ordering Facility: [facility] Address: [address] [place] [address] Performed By: #### 5 7021-8 #### [facility] CLIA [id number] 1000 [place] [address] [place] Neutrophils/100 WBC (Bld) 64.3 % Normal [facility] Comment on above: Order Comment: Speci men Type: BLOOD SPECIMEN Ordering Facility: [facility] Address: [address] [place] [address] Performed By: #### 5 7021-8 #### [facility] CLIA [id number] 1000 [place] [address] [place] Nucleated RBC (Bld) [#/Vol] 10*3/uL Normal <0.01 [facility] Comment on above: Order Comment: Speci men Type: BLOOD SPECIMEN Ordering Facility: [facility] Address: [address] [place] [address] Performed By: #### 5 7021-8 #### [facility] CLIA [id number] 1000 [place] [address] [place] Nucleated RBC/100 WBC (Bld) [Ratio] 0.0 /100 WBC Normal [facility] Comment on above: Order Comment: Speci men Type: BLOOD SPECIMEN Ordering Facility: [facility] Address: [address] [place] [address] Performed By: #### 5 7021-8 #### [facility] CLIA [id number] 1000 [place] [address] [place] Platelet mean volume (Bld) [Entitic vol] 9.0 fL Normal 9.0-12.7 [facility] Comment on above: Order Comment: Speci men Type: BLOOD SPECIMEN Ordering Facility: [facility] Address: [address] [place] [address] Performed By: #### 5 7021-8 #### [facility] CLIA [id number] 1000 [place] [address] [place] Platelets (Bld) [#/Vol] 278 10*3/uL Normal 150-400 [facility] Comment on above: Order Comment: Speci men Type: BLOOD SPECIMEN Ordering Facility: [facility] Address: [address] [place] [address] Performed By: #### 5 7021-8 #### [facility] CLIA [id number] 1000 [place] [address] [place] RBC (Bld) [#/Vol] 4.23 10*6/uL Normal 3.90-5.20 [facility] Comment on above: Order Comment: Speci men Type: BLOOD SPECIMEN Ordering Facility: [facility] Address: [address] [place] [address] Performed By: #### 5 7021-8 #### [facility] CLIA [id number] [address] [place] [address] [place] WBC (Bld) [#/Vol] 6.22 10*3/uL Normal 3.70-11.00 [facility] Comment on above: Order Comment: Speci men Type: BLOOD SPECIMEN Ordering Facility: [facility] Address: [address] [place] [address] Performed By: #### 5 7021-8 #### [facility] CLIA [id number] [address] [place] [address] [place] LUMBAR SPINE W RECON DATA -NBon 08-20-2024 CT LUMBAR SPINE W RECON DATA -NB * * *Final Report* * * DATE OF EXAM: Aug 20 2024 2:44PM [facility] [place] LUMBAR [place] W RECON DATA -NB / PROCEDURE REASON: BLE numbness * * * * Physician Interpretation * * * * EXAMINATION: CT LUMBAR SPINE W RECON DATA -NB NOTE: TIME STAMP ON THE IMAGING IS 14:43. THESE IMAGES ARE PRESENTED FOR REVIEW AT APPROXIMATELY 17:00. CLINICAL HISTORY: BLE numbness. TECHNIQUE: Images of the spine are reconstructed from the respective and already completed abdomen/pelvis exams. Ronof-bl-ayka is optimized for assessment of the spine and visceral findings from the original studies will not be reiterated. Focus of this data manipulation is presence or absence of acute spinal injury. MQ: [id number] No DLP. This is a recon exam. Lumbar plain films 08/20/2024. COMPARISON: None. RESULT: Counting reference: Lumbosacral junction. For the purposes of this report, L4-5 is considered the level of the iliac crest and assume there are 5 lumbar-type vertebrae. Anatomic variant: None. Executive Coordinator (topogram) images: No additional findings. Alignment: In the sagittal plane, there is slightly kyphotic angulation at the thoracolumbar junction related to minimal old anterior wedging of T12. No evidence for acute fracture. 1-2 mm retrolisthesis of L1 over L2 and 2 mm retrolisthesis of L2 over L3. Minimal curvature convex left at the thoracolumbar junction. Bone marrow /fracture: No evidence of a lytic or blastic process in the visualized spine. No evidence of acute or chronic fracture. There is mild loss of disc height and multilevel vacuum disc degenerative change T8-T9 through the T12-L1 level. Paraspinal soft tissues: The paraspinal soft tissues planes are maintained. Lower thoracic spine: Loss of disc height at lower thoracic levels contributes to severe foraminal narrowing at T9-T10 and T10-T11 (608:85; 608:109). This may contribute to radiculopathy. L1-L2: Slight retrolisthesis and minimal loss of disc height. Canal is normally patent. Neural foramina are patent. L2-L3: Slight retrolisthesis, minimal disc bulging, and mild loss of disc height. Spinal canal remains patent. Neural foramina are patent. L3-L4: Minor disc bulging. Canal remains patent. Lateral margins of the annulus and facet degenerative change contribute to mild-moderate foraminal narrowing. L4-L5: Disc bulging, mild redundancy of the ligamentum flavum, and mild facet degenerative change. Slight indentation of dorsal-lateral margins of the thecal sac and overall mild canal narrowing. There may be lateral recess narrowing which could impinge on the descending L5 nerve roots, but the canal is otherwise patent. Loss of disc height and facet degenerative change contributes to moderate right and moderate to severe left foraminal narrowing. L5-S1: Minor disc bulging, below the interspace, note is made of subtle incomplete fusion of the posterior lamina of S1. (304:220). Central thecal sac is normally patent at the level of L5-S1 and there is no gross compression of either descending S1 nerve root sleeve. Foramina remain grossly patent. A thin rim of fat is visible surrounding the exiting L5 nerve roots. Sacrum and iliac wings: No evidence for fracture. Minimal vacuum change at the SI joints. Some fatty replacement in the sacral ala and iliac wings. IMPRESSION: Lumbar spondylosis as discussed. Foraminal narrowing is greatest on the left at L4-L5 and may contribute to radiculopathy. No high-grade spinal stenosis. There is mild bilateral lateral recess narrowing at L4-L5 which may impinge on the descending L5 nerve roots and contribute to radiculopathy. Bones appear osteopenic. Minimal old anterior wedging of T12. No gross vertebral body collapse or bony retropulsion. Anatomic Lumbar Variant: None. L4-5 is considered the level of the iliac crest and assume there are 5 lumbar-type vertebrae. Unix Consultant: ROSA Transcribe Date/Time: Aug 20 2024 4:59P Dictated by : SONY COOPER MD This examination was interpreted and the report reviewed and electronically signed by: SONY COOPER MD on Aug 20 2024 5:10PM EST [id number] [facility] CTA ABD/PEL/LOWER EXT W IVCO Non 08-20-2024 CTA ABD/PEL/LOWER EXT W IVCON * * *Final Report* * * DATE OF EXAM: Aug 20 2024 2:44PM [facility] [place] ABD/PEL/LOWER EXT W IVCON / PROCEDURE REASON: abd pain, lower, rlq pain, BLE cold, numb, toes discolored per patient * * * * Physician Interpretation * * * * EXAM: CTA of the abdomen, pelvis, and bilateral lower extremities with contrast. HISTORY: abd pain, lower, rlq pain, BLE cold, numb, toes discolored per patient TECHNIQUE: CT angiogram of the abdomen, pelvis, and bilateral lower extremities was performed with axial imaging during and after the intravenous administration of contrast. Multiplanar reconstruction (MPR) and 3-D Maximum Intensity Projection (MIP) images were created on the modality imaging workstation and stored on PACS. CT Dose-Length Product (DLP): 611 mGy*cm CT Dose Reduction Employed: Not provided CONTRAST: Intravenous: 100 mL Omnipaque 350 COMPARISON: None FINDINGS: Lung Bases: Emphysematous changes in the lower lungs. CTA ABDOMEN AND PELVIS: Vasculature: Arteriovascular calcifications present. No aneurysmal dilatation of the abdominal aorta. No evidence of abdominal aortic dissection. The celiac artery, superior mesenteric artery, bilateral renal arteries, and inferior mesenteric artery are patent. The bilateral common iliac, external iliac, and internal iliac arteries are patent. Liver: No mass. Biliary: No bile duct dilation. Gallbladder is unremarkable. Spleen: No mass. No splenomegaly. Pancreas: No mass or duct dilation. Adrenals: No mass. Kidneys: No mass, calculus or hydronephrosis. GI tract: No dilation or wall thickening. Lymph nodes: No abdominal or pelvic lymphadenopathy identified. Mesentery/Peritoneum: No ascites. No free air. Pelvis: No mass, ascites or fluid collection. The urinary bladder is unremarkable. Bones: No acute bony abnormality. RIGHT LOWER EXTREMITY: The common femoral artery, superficial femoral artery, profunda femoral artery, and popliteal artery are patent. At the calf the anterior tibial artery, posterior tibial artery, peroneal artery are patent. There is three-vessel runoff to the ankle. LEFT LOWER EXTREMITY: The common femoral artery, superficial femoral artery, profunda femoral artery, and popliteal artery are patent. At the calf the anterior tibial artery, posterior tibial artery, peroneal artery are patent. There is three-vessel runoff to the ankle. IMPRESSION: 1. Patent bilateral three-vessel runoff to the lower leg. 2. Multifocal arteriovascular calcifications, without large vessel significant stenoses. Unix Consultant: PSCB Transcribe Date/Time: Aug 20 2024 4:57P Dictated by : WEI MORRISON MD This examination was interpreted and the report reviewed and electronically signed by: WEI MORRISON MD on Aug 20 2024 5:08PM EST [id number] Normal [facility] Comprehensive metabolic 2000 panelon 08-20-2024 Albumin [Mass/Vol] 4.4 g/dL Normal 3.9-4.9 [facility] Comment on above: Order Comment: Speci men Type: BLOOD SPECIMENOrdering Facility: [facility] Address: [address] [place] [address] Performed By: #### 2 8, ####[facility] [id number] [place] [address] [place] ALP [Catalytic activity/Vol] 83 U/L Normal 34-123 [facility] Comment on above: Order Comment: Speci men Type: BLOOD SPECIMENOrdering Facility: [facility] Address: [address] [place] [address] Performed By: #### 2 4328, ####[facility] [id number] [place] [id number] [place] ALT [Catalytic activity/Vol] 29 U/L Normal 7-38 [facility] Comment on above: Order Comment: Speci men Type: BLOOD SPECIMENOrdering Facility: [facility] Address: [address] [place] [place] [id number] Performed By: #### 2 4323-02, ####[facility] [id number] [place] [address] [place] Anion gap [Moles/Vol] 8 mmol/L Normal 8-15 [facility] Comment on above: Order Comment: Speci men Type: BLOOD SPECIMENOrdering Facility: [facility] Address: [address] [place] [place] [id number] Performed By: #### 2 4323-8, ####[facility] [id number] [place] [address] [place] AST [Catalytic activity/Vol] 28 U/L Normal 13-35 [facility] Comment on above: Order Comment: Speci men Type: BLOOD SPECIMENOrdering Facility: [facility] Address: [address] [place] [address] Performed By: #### 2 4323-8, ####[facility] [id number] [place] [address] [place] Bilirubin [Mass/Vol] 0.4 mg/dL Normal 0.2-1.3 [facility] Comment on above: Order Comment: Speci men Type: BLOOD SPECIMENOrdering Facility: [facility] Address: [address] [place] [address] Performed By: #### 2 4323-8, ####[facility] [id number] [place] [address] [place] Calcium [Mass/Vol] 9.7 mg/dL Normal 8.5-10.2 [facility] Comment on above: Order Comment: Speci men Type: BLOOD SPECIMENOrdering Facility: [facility] Address: [address] [place] [place] [id number] Performed By: #### 2 4323-8, ####[facility] [id number] [place] [address] [place] Chloride [Moles/Vol] 104 mmol/L Normal 98-107 [facility] Comment on above: Order Comment: Speci men Type: BLOOD SPECIMENOrdering Facility: [facility] Address: [address] [place] [place] [id number] Performed By: #### 2 4323-8, ####[facility] [id number] [place] [address] [place] CO2 [Moles/Vol] 29 mmol/L Normal 22-30 [facility] Comment on above: Order Comment: Speci men Type: BLOOD SPECIMENOrdering Facility: [facility] Address: [address] [place] [address] Performed By: #### 2 432-8, ####[facility] [id number] [address] [place] Creatinine [Mass/Vol] 0.61 mg/dL Normal 0.58-0.96 [facility] Comment on above: Order Comment: Speci men Type: BLOOD SPECIMENOrdering Facility: [facility] Address: [address] [place] [address] Performed By: #### 2 4328, ####[facility] [id number] [address] Creatinine and Glomerular filtration rate.predicted panel (S/P/Bld) 100 mL/min/1.73m??? Normal >=60 [facility] Comment on above: Order Comment: Speci men Type: BLOOD SPECIMENOrdering Facility: [facility] Address: [address] [place] [address] Result Comment: Luis mated Glomerular Filtration Rate (eGFR) is calculated using the 2020 CKD-EPI creatinine equation. This equation utilizes serum creatinine, sex, and age as parameters. The creatinine assay has traceable calibration to isotope dilution-mass spectrometry. Refer to KDIGO guidelines for clinical interpretation. In patients with unstable renal function, e.g. those with acute kidney injury, the eGFR may not accurately reflect actual GFR. Performed By: #### 2 4323-8, ####[facility] [id number] [address] Glucose [Mass/Vol] 98 mg/dL Normal 74-99 [facility] Comment on above: Order Comment: Speci men Type: BLOOD SPECIMENOrdering Facility: [facility] Address: [address] [place] [address] Result Comment: The [place] [employer] Association (ADA) provides guidance for cutoff values for fasting glucose and random glucose. The ADA defines fasting as no caloric intake for at least 8 hours. Fasting plasma glucose results between 100 to 125 [...] Standards of Medical Care in Diabetes 2016, [place] [employer]. Diabetes Care. 2016.39(Suppl 1). Performed By: #### 2 43209-20, ####[facility] [id number] [place] [address] [place] Potassium [Moles/Vol] 3.6 mmol/L Low 3.7-5.1 [facility] Comment on above: Order Comment: Collin whittaker Type: BLOOD SPECIMENOrdering Facility: [facility] Address: [address] [place] [address] Performed By: #### 2 4323-02, ####[facility] [id number] [place] [address] [place] Protein [Mass/Vol] 7.0 g/dL Normal 6.3-8.0 [facility] Comment on above: Order Comment: Collin whittaker Type: BLOOD SPECIMENOrdering Facility: [facility] Address: [address] [place] [address] Performed By: #### 2 4323-02, ####[facility] [id number] [place] [address] [place] Sodium [Moles/Vol] 141 mmol/L Normal 136-144 [facility] Comment on above: Order Comment: Collin whittaker Type: BLOOD SPECIMENOrdering Facility: [facility] Address: [address] [place] [place] [id number] Performed By: #### 2 4323-02, ####[facility] [id number] [address] [place] Urea nitrogen [Mass/Vol] 13 mg/dL Normal 7-21 [facility] Comment on above: Order Comment: Speci men Type: BLOOD SPECIMENOrdering Facility: [facility] Address: [address] [place] [id number] Performed By: #### 2 4323-8, 71202-0 ####[facility] [id number] [place] [id number] [facility] [place] ED NOTEon 08-20-2024 ED NOTE HNO ID: [id number] Author: ANNA COBB RN Service: Nursing Author Type: Registered Nurse Type: ED Notes Filed: 08/20/2024 17:47 Note Text: Discharge instructions d/w pt at bedside. Stated understanding with no further questions for this nurse. Encouraged f/u with PCP and referring doctors given. Stated understanding. Prescription(S) were given X0. Normal [facility] ED NOTE HNO ID: [id number] Author: MARJORIE SINGH RN Service: Nursing Author Type: Registered Nurse Type: ED Notes Filed: 08/20/2024 13:51 Note Text: NATALIYA Henry rounds on patient Normal [facility] ED PROV NOTEon 08-20-2024 ED PROV NOTE HNO ID: [id number] Author: JUAN PATHAK DO Service: Emergency Medicine Author Type: Physician Type: ED Provider Notes Filed: 08/20/2024 17:38 Note Text: ED Provider Note Patient Name: Giovanna Nation : 1960 SERVICE DATE: 08/20/24 History Patient presents with: Leg Pain: Bilateral leg pain, numbness and tingling to bilateral legs, worsening over the last two days. Associated chills. Patient is a 63-year-old female with a past medical history of ADHD, hypertension, presenting to the ED with complaints of bilateral lower extremity numbness, discoloration. Patient states this started back in May, she has followed up with her primary care team, requesting for her to complete a PVR. This is scheduled for Sunday. Patient denies any injury or trauma. Patient states despite following up with her primary care physicians, she feels like this is worsening. It initially started with sensation changes in her mid legs, calves. However this has progressed, she is now feeling in both legs, up to her lower pelvis area. Patient also mentions abdominal pain, right lower quadrant, pelvic, she is unable to tell me how long this has been going on. Unable to describe what it feels like and intensity. She denies any loss of bowel or bladder. Patient states no fever, chills. No cough, shortness of breath or chest pain no nausea, vomiting or diarrhea. She denies any urinary symptoms. History provided by: Patient and medical records seismic interpreter used: No PAST MEDICAL HISTORY Diagnosis Date Attention deficit disorder without mention of hyperactivity Adult Closed fracture of distal end of left radius 08/21/2016 Excessive or frequent menstruation History of colonoscopy 12/2020 Myalgia and myositis, unspecified Primary hypertension 12/30/2023 PAST SURGICAL HISTORY Procedure Laterality Date APPENDECTOMY APPENDECTOMY HX LIG/TRNSXJ FLP TUBE ABDL/VAG APPR UNI/BI Tubal ligation FAMILY HISTORY Problem Relation Age of Onset Cancer Mother Cervical cancer- treated Psychiatry Sister suicide Ischemic Heart Disease Brother 60 [place], heavy smoker, Etoh Psychiatry Son Opoid dependency Cancer Other Niece (sister's daughter) Social History Tobacco Use Smoking status: Former Current packs/day: 0.50 Types: Cigarettes Smokeless tobacco: Never Vaping Use Vaping status: Former Substance and Sexual Activity Alcohol use: No Drug use: Never Sexual activity: Not Currently Partners: Male ALLERGIES Allergen Reactions Flovent [Fluticason* Other: See Comments took breath away Penicillins Rash Prednisone Mental Status Change Depression Review of Systems Constitutional: Negative for activity change, appetite change, chills, fatigue and fever. HENT: Negative for congestion, rhinorrhea, sinus pain, sore throat and trouble swallowing. Eyes: Negative for photophobia, redness and visual disturbance. Respiratory: Negative for cough, shortness of breath and wheezing. Cardiovascular: Negative for chest pain and leg swelling. Gastrointestinal: Positive for abdominal pain. Negative for abdominal distention, diarrhea, nausea and vomiting. Endocrine: Negative for polydipsia, polyphagia and polyuria. Genitourinary: Negative for decreased urine volume, flank pain and frequency. Musculoskeletal: Negative for arthralgias, back pain and myalgias. Skin: Negative for color change and pallor. Neurological: Positive for weakness and numbness. Negative for dizziness, facial asymmetry, light-headedness and headaches. Psychiatric/Behavioral: Negative for confusion and sleep disturbance. Physical Exam Vitals [08/20/24 1219] BP Pulse Temp Temp src Resp SpO2 Weight Height 152/90 77 36.7 ?C (98.1 ?F) Oral 16 96 % 45.4 kg (100 lb) -- Physical Exam Vitals and nursing note reviewed. Constitutional: General: She is not in acute distress. Appearance: She is not ill-appearing or diaphoretic. HENT: Head: Normocephalic and atraumatic. Eyes: Extraocular Movements: Extraocular movements intact. Pupils: Pupils are equal, round, and reactive to light. Cardiovascular: Rate and Rhythm: Normal rate and regular rhythm. Pulses: Normal pulses. Heart sounds: Normal heart sounds. Pulmonary: Effort: Pulmonary effort is normal. Breath sounds: Normal breath sounds. Abdominal: General: Bowel sounds are normal. There is no distension. Palpations: Abdomen is soft. Tenderness: There is abdominal tenderness in the right lower quadrant and suprapubic area. Musculoskeletal: General: No tenderness. Normal range of motion. Cervical back: No tenderness or bony tenderness. No pain with movement. Normal range of motion. Thoracic back: No tenderness or bony tenderness. Normal range of motion. Lumbar back: No tenderness or bony tenderness. Normal range of motion. Skin: General: Skin is warm and dry. Capillary Refill: Capillary refill takes less th (more content not included)... Normal [facility] ED Triage Noteon 08-20-2024 ED Triage Note HNO ID: [id number] Author: RADHA RANKIN DO Service: Emergency Medicine Author Type: Physician Type: ED Triage Notes Filed: 08/20/2024 12:26 Note Text: ED INTAKE NOTE Patient Name: Giovanna Nation Service Date: 08/20/24 BRIEF HPI: This is a 63 year old female who presents to the ED with: hx of numbness and tingling in legs, pain in both legs now for the past week. Pt applied lidocaine patch, groin and leg hurts. BRIEF EXAM: NAD Awake and Alert Non labored breathing NFD INITIAL WORKUP AND DECISION MAKING: Orders Placed This Encounter XR LUMBAR GENERAL 3V AP/LAT/L5-S1 Provider examination performed via virtual platform with assistance from bedside clinician. SIGNATURE: Radha Rankin, DO Normal [facility] Magnesium SerPl-Janis 08-20 Magnesium [Mass/Vol] 2.2 mg/dL Normal 1.7-2.3 [facility] Comment on above: Order Comment: Speci men Type: BLOOD SPECIMENOrdering Facility: [facility] Address: [address] [place] [address] Performed By: #### 2 4323-8, 54324-2 ####FRE[facility] LABORATORYCLIA [id number] [address] Urinalysis complete panel (U )on 08-20-2024 Bilirubin Ql (U) Negative Normal Negative [facility] Comment on above: Order Comment: Speci men Type: URINE SPECIMENOrdering Facility: [facility] Address: [address] [place] [address] Performed By: #### 2 4356-8 ####FREY LABORATORYCLIA [id number] [place] [address] [place] Clarity (Unsp spec) Clear Normal Clear [facility] Comment on above: Order Comment: Speci men Type: URINE SPECIMENOrdering Facility: [facility] Address: [address] [place] [address] Performed By: #### 2 4356-8 ####FREY LABORATORYCLIA [id number] [address] [place] Color (U) Yellow Normal Yellow [facility] Comment on above: Order Comment: Speci men Type: URINE SPECIMENOrdering Facility: [facility] Address: [address] [place] [address] Performed By: #### 2 4356-8 ####FREY LABORATORYCLIA [id number] [address] [place] Epithelial cells LM.HPF (Urine sed) [#/Area] Few Normal [facility] Comment on above: Order Comment: Speci men Type: URINE SPECIMENOrdering Facility: [facility] Address: [address] [place] [address] Performed By: #### 2 4356-8 ####FREY LABORATORYCLIA [id number] [address] [place] Glucose Test strip (U) [Mass/Vol] Negative Normal Negative [facility] Comment on above: Order Comment: Speci men Type: URINE SPECIMENOrdering Facility: [facility] Address: [address] [place] [address] Performed By: #### 2 4356-8 ####FREY LABORATORYCLIA [id number] [place] [address] [place] Hemoglobin Ql (U) Negative Normal Negative [facility] Comment on above: Order Comment: Speci men Type: URINE SPECIMENOrdering Facility: [facility] Address: [address] [place] [address] Performed By: #### 2 4356-8 ####FREY LABORATORYCLIA [id number] [place] [address] [place] Ketones Ql (U) Negative Normal Negative [facility] Comment on above: Order Comment: Speci men Type: URINE SPECIMENOrdering Facility: [facility] Address: [address] [place] [address] Performed By: #### 2 4356-8 ####FREY LABORATORYCLIA [id number] [address] [place] Leukocyte esterase Test strip Ql (U) Negative Normal Negative [facility] Comment on above: Order Comment: Speci men Type: URINE SPECIMENOrdering Facility: [facility] Address: [address] [place] [address] Performed By: #### 2 4356-8 ####FREY LABORATORYCLIA [id number] [place] [address] [place] Nitrite Ql (U) Negative Normal Negative [facility] Comment on above: Order Comment: Speci men Type: URINE SPECIMENOrdering Facility: [facility] Address: [address] [place] [address] Performed By: #### 2 4356-8 ####FREY LABORATORYCLIA [id number] [place] [address] [place] pH (U) 7.5 [pH] Normal 5.0-8.0 [facility] Comment on above: Order Comment: Speci men Type: URINE SPECIMENOrdering Facility: [facility] Address: [address] [place] [address] Performed By: #### 2 4356-8 ####FREY LABORATORYCLIA [id number] [address] Protein (U) [Mass/Vol] Negative Normal Negative [facility] Comment on above: Order Comment: Speci men Type: URINE SPECIMENOrdering Facility: [facility] Address: [address] [place] [address] Performed By: #### 2 4356-8 ####FREY LABORATORYCLIA [id number] [address] STATES [facility] RBC LM.HPF (Urine sed) [#/Area] 0-3 /HPF Normal 0-3 /HPF [facility] Comment on above: Order Comment: Speci men Type: URINE SPECIMENOrdering Facility: [facility] Address: [address] [place] [address] Performed By: #### 2 4356-8 ####FREY LABORATORYCLIA [id number] [address] Specific gravity (U) [Rel density] 1.010 Normal 1.005-1.030 [facility] Comment on above: Order Comment: Speci men Type: URINE SPECIMENOrdering Facility: [facility] Address: [address] [place] [address] Performed By: #### 2 4356-8 ####FREY LABORATORYCLIA [id number] [address] Urobilinogen Ql (U) 0.2 EU/dL Normal 0.2-1.0 EU/dL [facility] Comment on above: Order Comment: Speci men Type: URINE SPECIMENOrdering Facility: [facility] Address: [address] [place] [address] Performed By: #### 2 4356-8 ####FREY LABORATORYCLIA [id number] [address] [place] WBC LM.HPF (Urine sed) [#/Area] 0-5 /HPF Normal 0-5 /HPF [facility] Comment on above: Order Comment: Speci men Type: URINE SPECIMENOrdering Facility: [facility] Address: [address] [place] [id number] Performed By: #### 2 4356-8 ####[facility] LABORATORYCLIA [id number] [place] [address] [place] XR LUMBAR 3V AP/LAT/L5-S1on 08-20-2024 XR LUMBAR 3V AP/LAT/L5-S1 * * *Final Report* * * DATE OF EXAM: Aug 20 2024 12:49PM MDX 5228 - XR LUMBAR 3V AP/LAT/L5-S1 / PROCEDURE REASON: Back pain * * * * Physician Interpretation * * * * EXAMINATION: XR LUMBAR 3V AP/LAT/L5-S1 PATIENT/TECHNOLOGIST PROVIDED HISTORY: NUMBNESS AND TINGLING IN LOWER BACK AND LEGS CLINICAL INFORMATION: 63 years old Female with Back pain TECHNIQUE: XR LUMBAR 3V AP/LAT/L5-S1 Laterality: NOT APPLICABLE Number of different views (projections): 3 COMPARISON: Lumbar spine radiographs 07/02/2019 RESULT: Lumbar spine: Counting reference: Lumbosacral junction. For the purposes of this report, L4-5 is considered the level of the iliac crest and there are 5 lumbar-type vertebrae. Anatomic Variants: None. Post-op assessment: N/A Alignment: Minimal retrolisthesis L2 on L3 is unchanged. Alignment is otherwise satisfactory. Vertebral bodies: Vertebral body heights are maintained. Spine articulations: Disc spaces are maintained with scattered endplate osteophytes. Other: Sacroiliac joints and hip joint spaces are maintained. Tubal ligation clips in the pelvis. IMPRESSION: Mild endplate degenerative changes in the thoracic spine. Unix Consultant: ROSA Transcribe Date/Time: Aug 20 2024 1:00P Dictated by : JASMYNE HE DO This examination was interpreted and the report reviewed and electronically signed by: JASMYNE HE DO on Aug 20 2024 1:05PM EST [id number] [facility] Germaine 08-11-2024 EVGENY Telephone [facility] GIOVANNA NATION ([id number]) 1960 F Date Time Provider Department 08/11/24 MICHAEL FLYNN During your visit today, we recorded the following information about you: Lety Eugene, GLEN 08/11/2024 3:59 PM Signed Patient returning Alba's call from Dr. Flynn's office. She states she was taking 1/2 of one baby aspirin daily- but does not want to even take that. She thought that she was started on Nifedipine to thin her blood Asking if it is really necessary to take both aspirin and Nifedipine? Lety Eugene, Michael Mariano MD 08/11/2024 5:03 PM Signed Nifedipine helps with vasospasm. Yes take both. Essence Hoover RN 08/12/2024 9:43 AM Signed Spoke with pt Pt very anxious about adding on more medications She does not know why she was started on baby aspirin She finds this all very 'alarming' and used this phrase several times She feels with her worsening hypertension and new Raynaud's, this is a vascular issue States she knows her body and feels something is wrong Asking if she can see a vascular doctor- requesting consult Aware she needs to schedule PVR, transferred to scheduling Michael Flynn MD 08/16/2024 8:37 AM Signed Consult placed Bienvenido Smith RN 08/16/2024 9:55 AM Signed Attempted to reach patient. Left message with new order by PCP left on identified VM. Advised to call back to schedule. Allergies As of Date: 08/11/2024 Noted Allergy Reaction FLOVENT (FLUTICASONE PROPIONATE) 10/17/2019 14 - Other: See Comments Comments: took breath away PENICILLINS 09/21/2005 2 - Rash PREDNISONE 09/21/2005 1 - Mental Status Change Comments: Depression Date Reviewed: 08/08/2024 Reviewed by: Alba Schmidt MA - Fully Assessed Reason for Visit: Returning Patient's Call [408] Prescriptions as of 08/16/2024 - NIFEdipine ER (PROCARDIA XL) 30 mg 24 hr tablet Take 1 tablet by mouth once daily. - losartan-hydroCHLOROthi azide (HYZAAR) 50-12.5 mg per tablet Take 1 tablet by mouth once daily. - BACLOFEN ORAL Take 5 mg by mouth two times a day. - gabapentin (NEURONTIN) 100 mg capsule Take 1 capsule by mouth four times daily for 180 days. - multivit-min/ferrous fumarate (MULTI VITAMIN ORAL) Take by mouth. Problem List As Of Date 08/11/2024 Noted Resolved MYALGIA AND MYOSITIS NOS [SHH6613] Tobacco use [Z72.0] 10/20/2013 01/07/2020 Depression with anxiety [F41.8] 11/19/2015 03/17/2021 Closed fracture of distal end of left radius [S*08/21/2016 07/02/2018 Shoulder stiffness [M25.619] 11/16/2016 Radiculopathy, cervical region [M54.12] 01/08/2017 Reflex sympathetic dystrophy of left upper extr*01/10/2017 Primary osteoarthritis of first carpometacarpal* 017 Lateral epicondylitis of left elbow [M77.12] 03/07/2017 Cubital tunnel syndrome on left [G56.22] 03/07/2017 Pain in left wrist [M25.532] 05/16/2017 Chronic left shoulder pain [M25.512, G89.29] 05/16/2017 Pain in left elbow [M25.522] 05/30/2017 Numbness and tingling in left upper extremity [*05/30/2017 Tobacco abuse, 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] 01/07/2020 Vitamin D deficiency [E55.9] 01/07/2020 Vitamin B12 deficiency [E53.8] 01/07/2020 MDD (major depressive disorder), recurrent epis*05/07/2021 Acute pain of right shoulder [M25.511] 11/20/2023 New daily persistent headache [G44.52] 12/28/2023 ADHD [F90.9] 12/30/2023 Primary hypertension [I10] 12/30/2023 Left facial numbness [R20.0] 12/30/2023 Headache [R51.9] 01/14/2024 Raynaud's disease without gangrene [I73.00] 08/08/2024 Encounter Status:Closed by BIENVENIDO SMITH on 08/16/24 [facility] CNOVon 08-08-2024 CNOV Office Visit (IM[facility] ) GIOVANNA NATION ([id number]) 1960 F Date Time Provider Department 08/08/24 4:20 PM MICHAEL FLYNN IM[facility] During your visit today, we recorded the following information about you: Temperature Pulse Respiration Blood pressure 97.4 degrees 74/minute 16/minute 145/83 Weight Height 45.6 kg 1.6 m Michael Flynn MD 08/09/2024 1:52 PM Signed ESTABLISHED PATIENT Giovanna Nation is a 63 year old female presenting for Follow Up (Feet/toes tingly,burning, calves,ankles). HISTORY OF PRESENT ILLNESS 63 year old female here for an acute appointment for feet/ toe pain She first recalls 3 months ago she noted weakness/discomfort of lateral right lower leg > left lower leg. She took an [employer] board sanding down her feet quite a bit for calluses beginning of May. Afterwards noted felt somewhat swollen at underside of her toes at the base. She questions some discoloration of distal toes purple red She stepped on a wrought iron bench then pine bench and wounded right 4th toe Denies ulcerations of toes Feels as if something is wrapped around her ankles and calves at times Former smoker but does use nicotine lozenges. She saw Dr Boykin 07/28/24 for same issue. Prescribed amlodipine but could not tolerate it After 1 dose amlodipine - legs cramped so she discontinued it Taking aspirin 1/2 pill per day HISTORIES FAMILY HISTORY Problem Relation Age of Onset Cancer Mother Cervical cancer- treated Psychiatry Sister suicide Ischemic Heart Disease Brother 60 [place], heavy smoker, Etoh Psychiatry Son Opoid dependency Cancer Other Niece (sister's daughter) PAST MEDICAL HISTORY Diagnosis Date Attention deficit disorder without mention of hyperactivity Adult Closed fracture of distal end of left radius 08/21/2016 Excessive or frequent menstruation History of colonoscopy 12/2020 Myalgia and myositis, unspecified Primary hypertension 12/30/2023 PAST SURGICAL HISTORY Procedure Laterality Date APPENDECTOMY APPENDECTOMY HX LIG/TRNSXJ FLP TUBE ABDL/VAG APPR UNI/BI Tubal ligation Social History Tobacco Use Smoking status: Former Current packs/day: 0.50 Types: Cigarettes Smokeless tobacco: Never Vaping Use Vaping status: Former Substance Use Topics Alcohol use: No Drug use: Never Allergies: ALLERGIES Allergen Reactions Flovent [Fluticason* Other: See Comments took breath away Penicillins Rash Prednisone Mental Status Change Depression Medications: losartan-hydroCHLOROthi azide (HYZAAR) 50-12.5 mg per tablet Take 1 tablet by mouth once daily. BACLOFEN ORAL Take 5 mg by mouth two times a day. gabapentin (NEURONTIN) 100 mg capsule Take 1 capsule by mouth four times daily for 180 days. multivit-min/ferrous fumarate (MULTI VITAMIN ORAL) Take by mouth. atomoxetine (STRATTERA) 25 mg capsule Take 25 mg by mouth every morning. (Patient not taking: Reported on 07/28/2024) REVIEW OF SYSTEMS GENERAL: No weight loss, malaise or fevers. RESPIRATORY: Negative for cough, hemoptysis, wheezing or shortness of breath. CARDIOVASCULAR: Negative for chest pain, leg swelling or palpitations. All other systems reviewed and negative other than HPI. PHYSICAL EXAM BP 145/83 Pulse 74 Temp 36.3 ?C (97.4 ?F) Resp 16 Ht 160 cm (5' 2.99) Wt 45.6 kg (100 lb 8.5 oz) LMP 02/11/2006 SpO2 100% BMI 17.81 kg/m? General Appearance: Well appearing, alert, in no acute distress, well-hydrated, well nourished. +anxious. Lungs: Lungs clear to auscultation. No wheezing, rhonchi, rales.. Heart: RRR without murmur, gallop, or rubs. No ectopy. Extremities: No deformities, edema Good capillary refill. , Pulses: 2+ DP bilaterally no toe ulcerations but chintan red toes bilaterally No cords. Enzo's sign negative.. ASSESSMENT: ASSESSMENT/PLAN: 1. Raynaud's disease without gangrene - ICD9: 443.0, ICD10: I73.00 (primary diagnosis) - Discussed elimination of all nicotine products - Warmth measures - patient reports unable to tolerate amlodipine after 1 dose thus will change to nifedipine - NIFEDIPINE ER 30 MG TABLET,EXTENDED RELEASE 24 HR 2. Primary hypertension - ICD9: 401.9, ICD10: I10 - Uncontrolled - Continue current medications - losartan/HCTZ - Start nifedipine ER - Recommend home blood pressure monitoring, to bring results to next visit - Encouraged sodium restriction, DASH or Mediterranean diet - Recommend regular aerobic exercise - NIFEDIPINE ER 30 MG TABLET,EXTENDED RELEASE 24 HR 3. Pain in both feet - ICD9: 729.5, ICD10: M79.671, M79.672 - question due to Raynauds but will check KEVIN to evaluate for PAD - PVR ANK PRESS [facility] - NIFEDIPINE ER 30 MG TABLET,EXTENDED RELEASE 24 HR Michael Flynn MD Referring Provider: SELF [200] Allergies As of Date: 08/08/2024 Noted Allergy Reaction FLOVENT (FLUTICASONE PROPIONATE) 10/17/2019 1 (more content not included)... Normal [facility] CNOVon 07-28-2024 CNOV Office Visit ([facility] ) GIOVANNA NATION ([id number]) 1960 F Date Time Provider Department 07/28/24 7:40 PM LEONARDA BOYKIN During your visit today, we recorded the following information about you: Temperature Pulse Blood pressure Weight 98.1 degrees 86/minute 132/84 45 kg Height 1.6 m Leonarda Boykin MD 08/18/2024 11:25 AM Signed Patient presents with: Follow Up: toes HPI: Giovanna Nation is a 63 year old female who presents to the office today for follow up. HTN Was on losartan/hctz, had episode of toe pain concerning for raynauds, switched to losartan and added amlodipine - took 1 dose and felt leg cramping. Resumed her losartan/hctz Since then feeling good Toes are still dusky, denies pain, cold intolerance. former smoker x 25 years, quit 5 years ago. 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 mention of hyperactivity Adult Closed fracture of distal end of left radius 08/21/2016 Excessive or frequent menstruation History of colonoscopy 12/2020 Myalgia and myositis, unspecified Primary hypertension 12/30/2023 PAST SURGICAL HISTORY Procedure Laterality Date APPENDECTOMY APPENDECTOMY HX LIG/TRNSXJ FLP TUBE ABDL/VAG APPR UNI/BI Tubal ligation FAMILY HISTORY Problem Relation Age of Onset Cancer Mother Cervical cancer- treated Psychiatry Sister suicide Ischemic Heart Disease Brother 60 [place], heavy smoker, Etoh Psychiatry Son Opoid dependency Cancer Other Niece (sister's daughter) Social History Tobacco Use Smoking status: Former Current packs/day: 0.50 Types: Cigarettes Smokeless tobacco: Never Vaping Use Vaping status: Former Substance Use Topics Alcohol use: No Drug use: Never ACTIVE PROBLEM LIST Myalgia and Myositis, Unspecified Shoulder Stiffness Radiculopathy, Cervical Region 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 Primary Osteoarthritis of First Carpometacarpal Joint of Left Hand Lateral Epicondylitis of Left Elbow Cubital Tunnel Syndrome On Left Pain in Left Wrist Chronic Left Shoulder Pain Pain in Left Elbow Numbness and Tingling in Left Upper Extremity Tobacco Abuse, in Remission Vitamin D Deficiency Vitamin B12 Deficiency Mdd (Major Depressive Disorder), Recurrent Episode, Severe (Hcc) Acute Pain of Right Shoulder New Daily Persistent Headache Adhd Primary Hypertension Left Facial Numbness Headache Raynaud's Disease Without Gangrene ALLERGIES Allergen Reactions Flovent [Fluticason* Other: See Comments took breath away Penicillins Rash Prednisone Mental Status Change Depression MEDICATIONS: BACLOFEN ORAL Take 5 mg by mouth two times a day. gabapentin (NEURONTIN) 100 mg capsule Take 1 capsule by mouth four times daily for 180 days. multivit-min/ferrous fumarate (MULTI VITAMIN ORAL) Take by mouth. NIFEdipine ER (PROCARDIA XL) 30 mg 24 hr tablet Take 1 tablet by mouth once daily. losartan-hydroCHLOROthi azide (HYZAAR) 50-12.5 mg per tablet Take 1 tablet by mouth once daily. EXAM:BP 132/84 Pulse 86 Temp 36.7 ?C (98.1 ?F) (Temporal) Ht 160 cm (5' 2.99) Wt 45 kg (99 lb 3.3 oz) LMP 02/11/2006 SpO2 100% BMI 17.58 kg/m? Last Wt 08/08/24 : 45.6 kg (100 lb 8.5 oz) 07/28/24 : 45 kg (99 lb 3.3 oz) 07/07/24 : 44.3 kg (97 lb 10.6 oz) 07/05/24 : 45.2 kg (99 lb 10.4 oz) PHYSICAL EXAM: General Appearance: Well appearing, alert, in no acute distress, well-hydrated, well nourished.. Skin: Skin color, texture, turgor normal, no suspicious rashes or lesions. Extremities: dusky toes but good cap refill, warm to touch. Peripheral Pulses: Normal. Neurologic: Gait normal. ASSESSMENT/PLAN: 1. Primary hypertension - ICD9: 401.9, ICD10: I10 (primary diagnosis) - Controlled - Continue current medications - Stop amlodipine - Recommend home blood pressure monitoring, to bring results to next visit - Encouraged sodium restriction, DASH or Mediterranean diet - Recommend regular aerobic exercise - LOSARTAN 50 MG-HYDROCHLORO (more content not included)... Normal [facility] Germaine 07-15-2024 EVGENY Telephone ([facility]) GIOVANNA NATION ([id number]) 1960 F Date Time Provider Department 07/15/24 FLYNNMICHAELLEATHA During your visit today, we recorded the following information about you: La Nena Mack LPN 07/15/2024 10:15 AM Signed ----- Message from Leonarda Boykin MD sent at 07/08/2024 9:45 AM EST ----- Labs normal so far. One autoimmune test still pending but so far no signs of anything concerning. La Nena Rodney LPN 07/15/2024 10:16 AM Signed Spoke with patient and relayed message below, she verbalized understanding. La Nena Mack LPN Allergies As of Date: 07/15/2024 Noted Allergy Reaction FLOVENT (FLUTICASONE PROPIONATE) 10/17/2019 14 - Other: See Comments Comments: took breath away PENICILLINS 09/21/2005 2 - Rash PREDNISONE 09/21/2005 1 - Mental Status Change Comments: Depression Date Reviewed: 07/07/2024 Reviewed by: La Nena Mack LPN - Fully Assessed Reason for Visit: Results [95] Prescriptions as of 07/15/2024 - amLODIPine (NORVASC) 5 mg tablet Take 1 tablet by mouth once daily. - losartan (COZAAR) 50 mg tablet Take 1 tablet by mouth once daily. - BACLOFEN ORAL Take 5 mg by mouth two times a day. - gabapentin (NEURONTIN) 100 mg capsule Take 1 capsule by mouth four times daily for 180 days. - multivit-min/ferrous fumarate (MULTI VITAMIN ORAL) Take by mouth. - atomoxetine (STRATTERA) 25 mg capsule Take 25 mg by mouth every morning. Problem List As Of Date 07/15/2024 Noted Resolved MYALGIA AND MYOSITIS NOS [HDP0041] Tobacco use [Z72.0] 10/20/2013 01/07/2020 Depression with anxiety [F41.8] 11/19/2015 03/17/2021 Closed fracture of distal end of left radius [S*08/21/2016 07/02/2018 Shoulder stiffness [M25.619] 11/16/2016 Radiculopathy, cervical region [M54.12] 01/08/2017 Reflex sympathetic dystrophy of left upper extr*01/10/2017 Primary osteoarthritis of first carpometacarpal* 017 Lateral epicondylitis of left elbow [M77.12] 03/07/2017 Cubital tunnel syndrome on left [G56.22] 03/07/2017 Pain in left wrist [M25.532] 05/16/2017 Chronic left shoulder pain [M25.512, G89.29] 05/16/2017 Pain in left elbow [M25.522] 05/30/2017 Numbness and tingling in left upper extremity [*05/30/2017 Tobacco abuse, 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] 01/07/2020 Vitamin D deficiency [E55.9] 01/07/2020 Vitamin B12 deficiency [E53.8] 01/07/2020 MDD (major depressive disorder), recurrent epis*05/07/2021 Acute pain of right shoulder [M25.511] 11/20/2023 New daily persistent headache [G44.52] 12/28/2023 ADHD [F90.9] 12/30/2023 Primary hypertension [I10] 12/30/2023 Left facial numbness [R20.0] 12/30/2023 Headache [R51.9] 01/14/2024 Encounter Status:Closed by LA NENA MACK [facility]15/[facility] GIOVANNA NATION ([id number]) 1960 F Date Time Provider Department 07/10/24 MICHAEL FLYNN During your visit today, we recorded the following information about you: Michael Johnson RN 07/10/2024 4:17 PM Signed Seen by Dr. Boykin on 07/07/2024, advised there could be a medication change, patient declined at that time. Calling today, would like to have a rx for the Amlodipine and a rx for the Losartan without the HCTZ as in the note below. ASSESSMENT/PLAN: 1. Raynaud disease without gangrene - ICD9: 443.0, ICD10: I73.00 (primary diagnosis) - repeat labs, discussed starting amlodipine in place of HCTZ to help with symptoms. - SEDIMENTATION RATE, WESTERGREN - C-REACTIVE PROTEIN - ANTI NEUTRO CYTO AB Would like it addressed by PCP if Dr. Boykin not available. Please review and address. Essence Hoover RN 07/11/2024 3:43 PM Signed Pt called again, asking to have this question addressed Leonarda Boykin MD 07/15/2024 8:22 AM Signed Rx sent. Allergies As of Date: 07/10/2024 Noted Allergy Reaction FLOVENT (FLUTICASONE PROPIONATE) 10/17/2019 14 - Other: See Comments Comments: took breath away PENICILLINS 09/21/2005 2 - Rash PREDNISONE 09/21/2005 1 - Mental Status Change Comments: Depression Date Reviewed: 07/07/2024 Reviewed by: La Nena Mack LPN - Fully Assessed Reason for Visit: Patient Question [6826] Primary Visit Diagnosis:Primary hypertension [I10] Other Visit Diagnosis:Raynaud's disease without gangrene [I73.00] Order(s):amLODIPine (NORVASC) 5 mg tabletTake 1 tablet by mouth once daily.Disp: 90 tabletRfl: 3 losartan (COZAAR) 50 mg tabletTake 1 tablet by mouth once daily.Disp: 90 tabletRfl: 3 Prescriptions as of 07/22/2024 - amLODIPine (NORVASC) 5 mg tablet Take 1 tablet by mouth once daily. - losartan (COZAAR) 50 mg tablet Take 1 tablet by mouth once daily. - BACLOFEN ORAL Take 5 mg by mouth two times a day. - gabapentin (NEURONTIN) 100 mg capsule Take 1 capsule by mouth four times daily for 180 days. - multivit-min/ferrous fumarate (MULTI VITAMIN ORAL) Take by mouth. - atomoxetine (STRATTERA) 25 mg capsule Take 25 mg by mouth every morning. Problem List As Of Date 07/10/2024 Noted Resolved MYALGIA AND MYOSITIS NOS [[id number]] Tobacco use [Z72.0] 10/20/2013 01/07/2020 Depression with anxiety [F41.8] 11/19/2015 03/17/2021 Closed fracture of distal end of left radius [S*08/21/2016 07/02/2018 Shoulder stiffness [M25.619] 11/16/2016 Radiculopathy, cervical region [M54.12] 01/08/2017 Reflex sympathetic dystrophy of left upper extr*01/10/2017 Primary osteoarthritis of first carpometacarpal* 017 Lateral epicondylitis of left elbow [M77.12] 03/07/2017 Cubital tunnel syndrome on left [G56.22] 03/07/2017 Pain in left wrist [M25.532] 05/16/2017 Chronic left shoulder pain [M25.512, G89.29] 05/16/2017 Pain in left elbow [M25.522] 05/30/2017 Numbness and tingling in left upper extremity [*05/30/2017 Tobacco abuse, 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 LOSARTAN 50 MG TABLET 90 t* 3 07/15/2024 07/15/2025 Route: ORAL Sig: Take 1 tablet by mouth once daily. Medications Discontinued During This Encounter Prescriptions - losartan-hydroCHLOROthi azide (HYZAAR) 50-12.5 mg per tablet (Discontinued) Take 1 tablet by mouth once daily. Encounter Status:Closed by MICHAEL JOHNSON on 07/22/24 Normal [facility] ANTI NEUTRO CYTO ABon 2023 INTERPRETATION (ANCA) Normal [facility] Comment on above: Order Comment: Speci men Type: BLOOD SPECIMENOrdering Facility: [facility] Address: [address] [place] [address] Result Comment: Nega tive for C-ANCA and P-ANCA by indirect immunofluorescence. A negative result cannot reliably rule out ANCA-associated vaculitides especially when in remission. Clinical correlation is required. Performed By: #### A NCA ####[facility] LABIA [id number] [place] [address] [place] Neutrophil cytoplasmic Ab.classic IF Ql (S) Negative Normal Negative [facility] Comment on above: Order Comment: Speci men Type: BLOOD SPECIMENOrdering Facility: [facility] Address: [address] [place] [address] Performed By: #### A NCA ####[facility] LABIA [id number] [place] [address] [place] Neutrophil cytoplasmic Ab.perinuclear IF Ql (S) Negative Normal Negative [facility] Comment on above: Order Comment: Speci men Type: BLOOD SPECIMENOrdering Facility: [facility] Address: [address] [place] [address] Performed By: #### A NCA ####[facility] LABCLIA [id number] [place] [address] [place] STAFF REVIEW (ANCA) No review performed. Normal [facility] Comment on above: Order Comment: Speci men Type: BLOOD SPECIMENOrdering Facility: [facility] Address: [address] [place] [address] Performed By: #### A NCA ####[facility] LABIA [id number] [place] [address] [place] Basic metabolic 2000 panelOr dered By: Thi Story on 07-07-2024 Anion gap [Moles/Vol] 9 mmol/L 8 - 15 mmol/L [facility] Calcium [Mass/Vol] 9.9 mg/dL 8.5 - 10. 2 mg/dL [facility] Chloride [Moles/Vol] 104 mmol/L 98 - 107 mmol/L [facility] CO2 [Moles/Vol] 28 mmol/L 22 - 30 mmol/L [facility] Creatinine [Mass/Vol] 0.68 mg/dL 0.58 - 0.96 mg/dL [facility] GFR/1.73 sq M.predicted among non-blacks MDRD (S/P/Bld) [Vol rate/Area] 97 mL/min/{1.73_m2} - PINF [facility] Comment on above: Estimated Glomerular Filtration Rate (eGFR) is calculated using the 2020 CKD-EPI creatinine equation. This equation utilizes serum creatinine, sex, and age as parameters. The creatinine assay has traceable calibration to isotope dilution-mass spectrometry. Refer to KDIGO guidelines for clinical interpretation. In patients with unstable renal function, e.g. those with acute kidney injury, the eGFR may not accurately reflect actual GFR. Glucose [Mass/Vol] 93 mg/dL 74 - 99 mg/dL [facility] Comment on above: The [place] Diabete s Association (ADA) provides guidance for cutoff values for fasting glucose and random glucose. The ADA defines fasting as no caloric intake for at least 8 hours. Fasting plasma glucose results between 100 to 125 [...] Standards of Medical Care in Diabetes 2016, [place] Diabetes Association. Diabetes Care. 2016.39(Suppl 1). Interpretation and review of laboratory results Normal [facility] Potassium [Moles/Vol] 4.7 mmol/L 3.7 - 5.1 mmol/L [facility] Sodium [Moles/Vol] 141 mmol/L 136 - 144 mmol/L [facility] Urea nitrogen [Mass/Vol] 12 mg/dL 7 - 21 mg/dL [facility] Basic metabolic 2000 panelon 07-07-2024 Anion gap [Moles/Vol] 9 mmol/L Normal 8-15 [facility] Comment on above: Order Comment: Speci men Type: BLOOD SPECIMENOrdering Facility: [facility] Address: [address] [place] [address] Performed By: #### 2 4321-2 ####[facility] [place] MILLTOWNCLIA [id number] [place] [address] [place] Calcium [Mass/Vol] 9.9 mg/dL Normal 8.5-10.2 [facility] Comment on above: Order Comment: Speci men Type: BLOOD SPECIMENOrdering Facility: [facility] Address: [address] [place] [address] Performed By: #### 2 4321-2 ####[facility] MILLTOWNCLIA [id number] [place] [address] [place] Chloride [Moles/Vol] 104 mmol/L Normal 98-107 [facility] Comment on above: Order Comment: Speci men Type: BLOOD SPECIMENOrdering Facility: [facility] Address: [address] [place] [address] Performed By: #### 2 4321-2 ####[facility] [place] MILLTOWNCLIA [id number] [place] [address] [place] CO2 [Moles/Vol] 28 mmol/L Normal 22-30 [facility] Comment on above: Order Comment: Speci men Type: BLOOD SPECIMENOrdering Facility: [facility] Address: [address] [place] [address] Performed By: #### 2 4321-2 ####[facility] [place] MILLTOWNCLIA [id number] [place] [address] [place] Creatinine [Mass/Vol] 0.68 mg/dL Normal 0.58-0.96 [facility] Comment on above: Order Comment: Collin whittaker Type: BLOOD SPECIMENOrdering Facility: [facility] Address: [address] [place] [address] Performed By: #### 2 4321-2 ####[facility] [id number] [place] [address] [place] Creatinine and Glomerular filtration rate.predicted panel (S/P/Bld) 97 mL/min/1.73m??? Normal >=60 [facility] Comment on above: Order Comment: Collin whittaker Type: BLOOD SPECIMENOrdering Facility: [facility] Address: [address] [place] [address] Result Comment: Luis mated Glomerular Filtration Rate (eGFR) is calculated using the 2020 CKD-EPI creatinine equation. This equation utilizes serum creatinine, sex, and age as parameters. The creatinine assay has traceable calibration to isotope dilution-mass spectrometry. Refer to KDIGO guidelines for clinical interpretation. In patients with unstable renal function, e.g. those with acute kidney injury, the eGFR may not accurately reflect actual GFR. Performed By: #### 2 4321-2 ####[facility] [id number] [place] [address] [place] Glucose [Mass/Vol] 93 mg/dL Normal 74-99 [facility] Comment on above: Order Comment: Collin whittaker Type: BLOOD SPECIMENOrdering Facility: [facility] Address: [address] [place] [address] Result Comment: The [place] Diabetes Association (ADA) provides guidance for cutoff values for fasting glucose and random glucose. The ADA defines fasting as no caloric intake for at least 8 hours. Fasting plasma glucose results between 100 to 125 [...] Standards of Medical Care in Diabetes 2016, [place] Diabetes Association. Diabetes Care. 2016.39(Suppl 1). Performed By: #### 2 4321-2 ####[facility] [place] [id number] [place] [address] [place] Potassium [Moles/Vol] 4.7 mmol/L Normal 3.7-5.1 [facility] Comment on above: Order Comment: Collin whittaker Type: BLOOD SPECIMENOrdering Facility: [facility] Address: [address] [place] [address] Performed By: #### 2 4321-2 ####[facility]ITAL[facility]CL[facility] [id number] [place] [address] [place] Sodium [Moles/Vol] 141 mmol/L Normal 136-144 [facility] Comment on above: Order Comment: Collin whittaker Type: BLOOD SPECIMENOrdering Facility: [facility] Address: [address] [place] [address] Performed By: #### 2 4321-2 ####[facility] [id number] [place] [address] [place] Urea nitrogen [Mass/Vol] 12 mg/dL Normal 7-21 [facility] Comment on above: Order Comment: Collin whittaker Type: BLOOD SPECIMENOrdering Facility: [facility] Address: [address] [place] [address] Performed By: #### 2 4321-2 ####[facility]ITAL[facility]CLIA [id number] [address] [place] CNOVon 07-07-2024 CNOV [facility] GIOVANNA NATION ([id number]) 1960 F Date Time Provider Department 07/07/24 10:40 AM LEONARDA BOYKIN During your visit today, we recorded the following information about you: Temperature Pulse Blood pressure Weight 97.1 degrees 95/minute 116/68 44.3 kg Height 1.6 m Leonarda Boykin MD 07/07/2024 4:33 PM Signed Patient presents with: Follow Up HPI: Giovanna Nation is a 63 year old female who presents to the office today for follow up. Was using an emery board in her feet a month ago to buff down some corns, also wore a pair of tight shoes all day, started to apply some moisturizer to help with skin care. The next day of wearing tight shoes, developed pain in her both big toes, right is worse. Toes were bluish looking, went to express care. - thought maybe chillblains. No rash or skin lesions. Had positive SHELBIE in the past, on 05/21/2023, had sed rate 78, crp 4.6 - ordered by previous pcp - repeat sed rate, crp normal. 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 mention of hyperactivity Adult Closed fracture of distal end of left radius 08/21/2016 Excessive or frequent menstruation History of colonoscopy 12/2020 Myalgia and myositis, unspecified Primary hypertension 12/30/2023 PAST SURGICAL HISTORY Procedure Laterality Date APPENDECTOMY APPENDECTOMY HX LIG/TRNSXJ FLP TUBE ABDL/VAG APPR UNI/BI Tubal ligation FAMILY HISTORY Problem Relation Age of Onset Cancer Mother Cervical cancer- treated Psychiatry Sister suicide Ischemic Heart Disease Brother 60 [place], heavy smoker, Etoh Psychiatry Son Opoid dependency Cancer Other Niece (sister's daughter) Social History Tobacco Use Smoking status: Former Current packs/day: 0.50 Types: Cigarettes Smokeless tobacco: Never Vaping Use Vaping status: Former Substance Use Topics Alcohol use: No Drug use: Never ACTIVE PROBLEM LIST Myalgia and Myositis, Unspecified Shoulder Stiffness Radiculopathy, Cervical Region 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 Primary Osteoarthritis of First Carpometacarpal Joint of Left Hand Lateral Epicondylitis of Left Elbow Cubital Tunnel Syndrome On Left Pain in Left Wrist Chronic Left Shoulder Pain Pain in Left Elbow Numbness and Tingling in Left Upper Extremity Tobacco Abuse, in Remission Vitamin D Deficiency Vitamin B12 Deficiency Mdd (Major Depressive Disorder), Recurrent Episode, Severe (Hcc) Acute Pain of Right Shoulder New Daily Persistent Headache Adhd Primary Hypertension Left Facial Numbness Headache ALLERGIES Allergen Reactions Flovent [Fluticason* Other: See Comments took breath away Penicillins Rash Prednisone Mental Status Change Depression MEDICATIONS: BACLOFEN ORAL Take 5 mg by mouth two times a day. gabapentin (NEURONTIN) 100 mg capsule Take 1 capsule by mouth four times daily for 180 days. multivit-min/ferrous fumarate (MULTI VITAMIN ORAL) Take by mouth. atomoxetine (STRATTERA) 25 mg capsule Take 25 mg by mouth every morning. losartan-hydroCHLOROthi azide (HYZAAR) 50-12.5 mg per tablet Take 1 tablet by mouth once daily. lotilaner (XDEMVY) 0.25 % ophthalmic solution Use 1 Drop in both eyes two times a day. (Patient not taking: Reported on 03/05/2024) erythromycin (ROMYCIN) 5 mg/gram (0.5 %) ophthalmic ointment Use 1 application in both eyes daily at bedtime. (Patient not taking: Reported on 06/25/2024) triamcinolone acetonide (KENALOG) 0.1 % cream Apply twice daily to pink papules on lower legs as needed (Patient not taking: Reported on 01/22/2024) lidocaine (LIDODERM) 5 % (Patient not taking: Reported on 01/22/2024) mecobalamin (B12 ACTIVE ORAL) Take by mouth. (Patient not taking: Reported on 01/22/2024) Cholecalciferol, Vitamin D3, 50 mcg (2,000 unit) cap Take 1 capsule by mouth once daily. (Patient not taking: Reported on 01/22/2024) (more content not included)... Normal [facility] CRP SerPl-mCncon 07-07-2024 CRP [Mass/Vol] mg/L Normal <0.9 [facility] Comment on above: Order Comment: Collin whittaker Type: BLOOD SPECIMENOrdering Facility: [facility] Address: [address] [place] [address] Performed By: #### 1 988-5 ####[facility] LABCLIA [id number] [place] [address] [place] ESR Westergren method (Bld) [Velocity]on 07-07-2024 ESR (Bld) [Velocity] 10 mm/h [facility] Interpretation and review of laboratory results Normal [facility] ESR (Bld) [Velocity] 10 mm/h Normal 0-20 [facility] Comment on above: Order Comment: Collin whittaker Type: BLOOD SPECIMENOrdering Facility: [facility] Address: [address] [place] [address] Performed By: #### 4 537-7 ####[facility] LABCLIA [id number] [address] [place] CNOVon 07-05-2024 CNOV Office Visit ([facility] ) GIOVANNA NATION ([id number]) 1960 F Date Time Provider Department 07/05/24 10:30 AM TAPAN MERCHANT [facility] During your visit today, we recorded the following information about you: Temperature Pulse Respiration Blood pressure 97.7 degrees 82/minute 20/minute 120/82 Weight 45.2 kg Tapan Merchant MD 07/05/2024 11:14 AM Signed Patient presents with: Feet issues: DEYA feet feel like they are haji bitten, stinging x 3 weeks Pt has not been outside to get haji bite HPI: Foot pain: Duration: 3 weeks, not worsening or improving. Location: toes on both feet Character: stinging, like burn or haji bite. Radiation: bottoms of feet might be numb. No back, hip, or leg pain. Aggravating/Relieving: none. Pain relievers: none. Uses baclofen occasionally Associated: discolored toes Pertinent negatives: Denies fever, headache (year long headache is resolved), backache, leg pain, injury, significant outdoor cold exposure. MEDICATIONS: BACLOFEN ORAL Take 5 mg by mouth two times a day. gabapentin (NEURONTIN) 100 mg capsule Take 1 capsule by mouth four times daily for 180 days. multivit-min/ferrous fumarate (MULTI VITAMIN ORAL) Take by mouth. atomoxetine (STRATTERA) 25 mg capsule Take 25 mg by mouth every morning. losartan-hydroCHLOROthi azide (HYZAAR) 50-12.5 mg per tablet Take 1 tablet by mouth once daily. lotilaner (XDEMVY) 0.25 % ophthalmic solution Use 1 Drop in both eyes two times a day. (Patient not taking: Reported on 03/05/2024) erythromycin (ROMYCIN) 5 mg/gram (0.5 %) ophthalmic ointment Use 1 application in both eyes daily at bedtime. (Patient not taking: Reported on 06/25/2024) triamcinolone acetonide (KENALOG) 0.1 % cream Apply twice daily to pink papules on lower legs as needed (Patient not taking: Reported on 01/22/2024) lidocaine (LIDODERM) 5 % (Patient not taking: Reported on 01/22/2024) mecobalamin (B12 ACTIVE ORAL) Take by mouth. (Patient not taking: Reported on 01/22/2024) Cholecalciferol, Vitamin D3, 50 mcg (2,000 unit) cap Take 1 capsule by mouth once daily. (Patient not taking: Reported on 01/22/2024) ALLERGIES: ALLERGIES Allergen Reactions Flovent [Fluticason* Other: See Comments took breath away Penicillins Rash Prednisone Mental Status Change Depression VITALS: BP 120/82 Pulse 82 Temp 36.5 ?C (97.7 ?F) Resp 20 Wt 45.2 kg (99 lb 10.4 oz) LMP 02/11/2006 SpO2 99% BMI 17.65 kg/m? PHYSICAL EXAM: GEN: pleasant, no acute distress, alert HEENT: PERRL, EOMI, MMM NECK: supple, HEART: regular rate, regular rhythm, no murmurs LUNGS: clear to auscultation, no wheezes or crackles, no increased WOB EXT: no clubbing, no edema FEET: bilateral toes have varying levels of violaceous discoloration. Toes are tender to palpation. Capillary refill <5 seconds. Dorsalis pedis pulses 1+/4 and posterior tibial pulses are 2+/4. bilaterally. Normal coloration of soles and dorsal feet. ASSESSMENT/PLAN: 1. Chilblains, initial encounter - ICD9: 991.5, ICD10: T69.1XXA Low suspicion for embolization or bilateral multiple digit vascular occlusion. Hx of positive SHELBIE and elevated ESR with other rheumatologic markers negative 1 year ago when she had itching/tingling/color change in her toes. Treat likely chilblains with warming therapy (without temps high enough to risk of burning) and avoid cold. Schedule follow up with PCP or rheumatology. Tapan Merchant MD Referring Provider: SELF [200] Allergies As of Date: 07/05/2024 Noted Allergy Reaction FLOVENT (FLUTICASONE PROPIONATE) 10/17/2019 14 - Other: See Comments Comments: took breath away PENICILLINS 09/21/2005 2 - Rash PREDNISONE 09/21/2005 1 - Mental Status Change Comments: Depression Date Reviewed: 07/05/2024 Reviewed by: Winter Pennington MA - Fully Assessed Reason for Visit: Feet issues [Other] Cmt: DEYA feet feel like they are haji bitten, stinging x 3 weeks Pt has not been outside to get haji bite Primary Visit Diagnosis:Chilblains, initial encounter [T69.1XXA] Prescriptions as of 07/05/2024 - BACLOFEN ORAL Take 5 mg by mouth two times a day. - gabapentin (NEURONTIN) 100 mg capsule Take 1 capsule by mouth four times daily for 180 days. - lotilaner (XDEMVY) 0.25 % ophthalmic solution Use 1 Drop in both eyes two times a day. - erythromycin (ROMYCIN) 5 mg/gram (0.5 %) ophthalmic ointment Use 1 application in both eyes daily at bedtime. - multivit-min/ferrous fumarate (MULTI VITAMIN ORAL) Take by mouth. - triamcinolone acetonide (KENALOG) 0.1 % cream Apply twice daily to pink papules on lower legs as needed - atomoxetine (STRATTERA) 25 mg capsule Take 25 mg by mouth every morning. - lidocaine (LIDODERM) 5 % - losartan-hydroCHLOROthi azide (HYZAAR) 50-12.5 mg per tablet Take 1 tablet by mouth once daily. - mecobalamin (B12 ACTIVE ORAL) Take by mouth. - Ch (more content not included)... Normal [facility] CNOVon 06-05-2024 CNOV Office Visit (NEURMM ) GIOVANNA NATION ([id number]) 1960 F Date Time Provider Department 06/05/24 10:00 AM CARLOTTA ARCHER NEURMM During your visit today, we recorded the following information about you: Pulse Respiration Blood pressure 88/minute 16/minute 113/78 Carlotta Archer MD 06/05/2024 11:45 AM [facility] [place] Patient presents with: Follow Up: headaches Accompanied by Self. Interval history Pleasant 63 years old woman ,who is here for follow up For headache and tinnitus ,as reaction to the vaccine . She would like to get rid of tinnitus Headache is intermittent since May 12 Gone until may 10 came back but then gone quickly. 2 days ago had mild headache Feeling skull is tender with the headache Not sleeping well at night ,only few hours Plan To increase gabapentin to 1//2 At night ,each is 100 mg capsule New prescription written Reaction to vaccine . HISTORY AND PHYSICAL Ms. Nation is a 63 year old female, being seen today for headache for 8 months . She was admitted to the hospital and had extensive work up MRI MRV with no acute lesion. Headache is left temporal parietal ,started severe throbbing ,now is mild dull aching Constant,daily but doesn't interfere with any of her daily activities. Left facial numbness with the onset of headache All these problems happened only after RSV vaccine ,never had these symptoms before the vaccine No previous history of migriane , Allergic to steroids ,affected her mentally She also has Neck pain intermittently and currently getting physical therapy for her neck as well as dry needling for the muscles With good relief Past Medical History PAST MEDICAL HISTORY Diagnosis Date Attention deficit disorder without mention of hyperactivity Adult Closed fracture of distal end of left radius 08/21/2016 Excessive or frequent menstruation History of colonoscopy 12/2020 Myalgia and myositis, unspecified Primary hypertension 12/30/2023 Current Medications Current Outpatient Medications Medication Sig Dispense Refill BACLOFEN ORAL Take 5 mg by mouth two times a day. erythromycin (ROMYCIN) 5 mg/gram (0.5 %) ophthalmic ointment Use 1 application in both eyes daily at bedtime. 3.5 g 2 multivit-min/ferrous fumarate (MULTI VITAMIN ORAL) Take by mouth. atomoxetine (STRATTERA) 25 mg capsule Take 25 mg by mouth every morning. losartan-hydroCHLOROthi azide (HYZAAR) 50-12.5 mg per tablet Take 1 tablet by mouth once daily. 90 tablet 3 gabapentin (NEURONTIN) 100 mg capsule Take 1 capsule by mouth four times daily for 180 days. 360 capsule 1 lotilaner (XDEMVY) 0.25 % ophthalmic solution Use 1 Drop in both eyes two times a day. (Patient not taking: Reported on 03/05/2024) 10 mL 1 triamcinolone acetonide (KENALOG) 0.1 % cream Apply twice daily to pink papules on lower legs as needed (Patient not taking: Reported on 01/22/2024) 28.4 g 2 lidocaine (LIDODERM) 5 % (Patient not taking: Reported on 01/22/2024) mecobalamin (B12 ACTIVE ORAL) Take by mouth. (Patient not taking: Reported on 01/22/2024) Cholecalciferol, Vitamin D3, 50 mcg (2,000 unit) cap Take 1 capsule by mouth once daily. (Patient not taking: Reported on 01/22/2024) No current facility-administered medications for this visit. Review of Systems: As shown in history All other systems reviewed and are negative. Objective Physical Exam BP 113/78 (BP Site: Right Leg, BP Position: Sitting, BP Cuff Size: Regular Adult) Pulse 88 Resp 16 LMP 02/11/2006 SpO2 100% Neurological Exam MENTAL STATUS: Alert, oriented to person, place and time and Follows commands CRANIAL NERVES: Visual godinez intact to confrontation, Face symmetric, Hearing intact to finger rub bilaterally, No dysarthria, Palate elevates symmetrically, Tongue protrudes midline, and Shoulder shrug intact and symmetric MOTOR: No drift and Normal tone MOTOR STRENGTH: Upper and lower extremity 5/5 bilaterally REFLEXES: UE and LE reflexes are equal and reactive SENSATION: Intact light touch COORDINATION: Finger-to- nose-finger intact bilaterally GAIT: Normal-based TANDEM good Data Diagnostic tests reviewed for today's visit: LABS: Lab Results Component Value Date PLT 284 01/14/2024 HB 13.9 01/14/2024 HCT 41.1 01/14/2024 ALB 4.1 01/14/2024 CA 9.3 01/14/2024 TBILI 0.4 01/14/2024 ALKPHOS 70 01/14/2024 AST 17 01/14/2024 GLUC 97 01/14/2024 BUN 16 01/14/2024 NA 136 01/14/2024 K 3.3 (L) 01/14/2024 CHLOR 100 01/14/2024 CO2 29 01/14/2024 ANION 7 (L) 01/14/2024 ALT 10 01/14/2024 Lab Results Component Value Date WSR 26 (H) 06/08/2023 CRP <0.3 01/14/2024 No results found for: USCRP Lab Results Component Value Date CHOL 165 06/13/2022 CHOL 175 05/08/2021 CHOL 185 06/12/2018 Lab Results Component Value Date LDL 100 (H) 06/13/2022 (more content not included)... Normal [facility] CNCOon 05-29-2024 CNCO Letter Text Normal [facility] CNTHERAPYon 04-11-2024 CNTHERAPY OT/PT/Speech Visit (PTWS) GIOVANNA NATION ([id number]) 1960 F Date Time Provider Department 04/11/24 2:15 PM PIERRE MONTGOMERY PTWS Date Time Provider Department Center 04/11/2024 2:15 PM [id number], [facility] PTWS Duarte Rojas Reason for Visit: PT Discharge [752] Primary Visit Diagnosis:Pain in left wrist [M25.532] Other Visit Diagnosis:Chronic left shoulder pain [M25.512, G89.29] Allergies As of Date: 04/11/2024 Noted Allergy Reaction FLOVENT (FLUTICASONE PROPIONATE) 10/17/2019 14 - Other: See Comments Comments: took breath away PENICILLINS 09/21/2005 2 - Rash PREDNISONE 09/21/2005 1 - Mental Status Change Comments: Depression Date Reviewed: 03/05/2024 Reviewed by: Santa Tomlinson MA - Fully Assessed Prescriptions as of 04/11/2024 - gabapentin (NEURONTIN) 100 mg capsule Take 1 capsule by mouth three times a day for 360 days. - lotilaner (XDEMVY) 0.25 % ophthalmic solution Use 1 Drop in both eyes two times a day. - erythromycin (ROMYCIN) 5 mg/gram (0.5 %) ophthalmic ointment Use 1 application in both eyes daily at bedtime. - baclofen 5 mg tablet Take 1 tablet by mouth two times a day as needed (headache/neck pain). - multivit-min/ferrous fumarate (MULTI VITAMIN ORAL) Take by mouth. - triamcinolone acetonide (KENALOG) 0.1 % cream Apply twice daily to pink papules on lower legs as needed - atomoxetine (STRATTERA) 25 mg capsule Take 25 mg by mouth every morning. - lidocaine (LIDODERM) 5 % - losartan-hydroCHLOROthi azide (HYZAAR) 50-12.5 mg per tablet Take 1 tablet by mouth once daily. - mecobalamin (B12 ACTIVE ORAL) Take by mouth. - Cholecalciferol, Vitamin D3, 50 mcg (2,000 unit) cap Take 1 capsule by mouth once daily. Normal [facility] CNTHERAPYon 03-25-2024 CNTHERAPY OT/PT/Speech Visit (PTWS) GIOVANNA NATION ([id number]) 1960 F Date Time Provider Department 03/25/24 3:00 PM PIERRE MONTGOMERY PTWS Date Time Provider Department Center 03/25/2024 3:00 PM [id number], CORE[facility] PTWS Duarte Rojas Reason for Visit: Physical Therapy [503] Primary Visit Diagnosis:Pain in left wrist [M25.532] Other Visit Diagnosis:Chronic left shoulder pain [M25.512, G89.29] Allergies As of Date: 03/25/2024 Noted Allergy Reaction FLOVENT (FLUTICASONE PROPIONATE) 10/17/2019 14 - Other: See Comments Comments: took breath away PENICILLINS 09/21/2005 2 - Rash PREDNISONE 09/21/2005 1 - Mental Status Change Comments: Depression Date Reviewed: 03/05/2024 Reviewed by: Santa Tomlinson MA - Fully Assessed Prescriptions as of 03/25/2024 - gabapentin (NEURONTIN) 100 mg capsule Take 1 capsule by mouth three times a day for 30 days. - lotilaner (XDEMVY) 0.25 % ophthalmic solution Use 1 Drop in both eyes two times a day. - erythromycin (ROMYCIN) 5 mg/gram (0.5 %) ophthalmic ointment Use 1 application in both eyes daily at bedtime. - baclofen 5 mg tablet Take 1 tablet by mouth two times a day as needed (headache/neck pain). - multivit-min/ferrous fumarate (MULTI VITAMIN ORAL) Take by mouth. - triamcinolone acetonide (KENALOG) 0.1 % cream Apply twice daily to pink papules on lower legs as needed - atomoxetine (STRATTERA) 25 mg capsule Take 25 mg by mouth every morning. - lidocaine (LIDODERM) 5 % - losartan-hydroCHLOROthi azide (HYZAAR) 50-12.5 mg per tablet Take 1 tablet by mouth once daily. - mecobalamin (B12 ACTIVE ORAL) Take by mouth. - Cholecalciferol, Vitamin D3, 50 mcg (2,000 unit) cap Take 1 capsule by mouth once daily. Normal [facility] CNTHERAPYon 03-18-2024 CNTHERAPY OT/PT/Speech Visit (PTWS) GIOVANNA NATION ([id number]) 1960 F Date Time Provider Department 03/18/24 3:00 PM PIERRE MONTGOMERY PTWS Date Time Provider Department Center 03/18/2024 3:00 PM [id number], COREY PTWS Duarte Rojas Reason for Visit: Physical Therapy [503] Primary Visit Diagnosis:Pain in left wrist [M25.532] Other Visit Diagnosis:Chronic left shoulder pain [M25.512, G89.29] Allergies As of Date: 03/18/2024 Noted Allergy Reaction FLOVENT (FLUTICASONE PROPIONATE) 10/17/2019 14 - Other: See Comments Comments: took breath away PENICILLINS 09/21/2005 2 - Rash PREDNISONE 09/21/2005 1 - Mental Status Change Comments: Depression Date Reviewed: 03/05/2024 Reviewed by: Santa Tomlinson MA - Fully Assessed Prescriptions as of 03/18/2024 - gabapentin (NEURONTIN) 100 mg capsule Take 1 capsule by mouth three times a day for 30 days. - lotilaner (XDEMVY) 0.25 % ophthalmic solution Use 1 Drop in both eyes two times a day. - erythromycin (ROMYCIN) 5 mg/gram (0.5 %) ophthalmic ointment Use 1 application in both eyes daily at bedtime. - baclofen 5 mg tablet Take 1 tablet by mouth two times a day as needed (headache/neck pain). - multivit-min/ferrous fumarate (MULTI VITAMIN ORAL) Take by mouth. - triamcinolone acetonide (KENALOG) 0.1 % cream Apply twice daily to pink papules on lower legs as needed - atomoxetine (STRATTERA) 25 mg capsule Take 25 mg by mouth every morning. - lidocaine (LIDODERM) 5 % - losartan-hydroCHLOROthi azide (HYZAAR) 50-12.5 mg per tablet Take 1 tablet by mouth once daily. - mecobalamin (B12 ACTIVE ORAL) Take by mouth. - Cholecalciferol, Vitamin D3, 50 mcg (2,000 unit) cap Take 1 capsule by mouth once daily. Normal [facility] CNTHERAPYon 03-11-2024 CNTHERAPY OT/PT/Speech Visit (PTWS) GIOVANNA NATION ([id number]) 1960 F Date Time Provider Department 03/11/24 3:45 PM PIERRE MONTGOMERY PTWS Date Time Provider Department [place] 03/11/2024 3:45 PM [id number], COREY PTWS Duarte Rojas Reason for Visit: Physical Therapy [503] Primary Visit Diagnosis:Pain in left wrist [M25.532] Other Visit Diagnosis:Chronic left shoulder pain [M25.512, G89.29] Allergies As of Date: 03/11/2024 Noted Allergy Reaction FLOVENT (FLUTICASONE PROPIONATE) 10/17/2019 14 - Other: See Comments Comments: took breath away PENICILLINS 09/21/2005 2 - Rash PREDNISONE 09/21/2005 1 - Mental Status Change Comments: Depression Date Reviewed: 03/05/2024 Reviewed by: Santa Tomlinson MA - Fully Assessed Prescriptions as of 03/11/2024 - gabapentin (NEURONTIN) 100 mg capsule Take 1 capsule by mouth three times a day for 30 days. - lotilaner (XDEMVY) 0.25 % ophthalmic solution Use 1 Drop in both eyes two times a day. - erythromycin (ROMYCIN) 5 mg/gram (0.5 %) ophthalmic ointment Use 1 application in both eyes daily at bedtime. - baclofen 5 mg tablet Take 1 tablet by mouth two times a day as needed (headache/neck pain). - multivit-min/ferrous fumarate (MULTI VITAMIN ORAL) Take by mouth. - triamcinolone acetonide (KENALOG) 0.1 % cream Apply twice daily to pink papules on lower legs as needed - atomoxetine (STRATTERA) 25 mg capsule Take 25 mg by mouth every morning. - lidocaine (LIDODERM) 5 % - losartan-hydroCHLOROthi azide (HYZAAR) 50-12.5 mg per tablet Take 1 tablet by mouth once daily. - mecobalamin (B12 ACTIVE ORAL) Take by mouth. - Cholecalciferol, Vitamin D3, 50 mcg (2,000 unit) cap Take 1 capsule by mouth once daily. Normal [facility] Methylmalonate SerPl-sCncon 03-10-2024 Methylmalonate [Moles/Vol] 0.18 umol/L Normal <=0.40 [facility] Comment on above: Order Comment: Speci men Type: BLOOD SPECIMENOrdering Facility: [facility] Address: [address] [place] [address] Result Comment: This test was developed and its performance characteristics determined by [facility]'s [facility] [place] ([facility]). It has not been cleared or approved by the FDA. -[facility] is regulated under CLIA as qualified to perform high-complexity testing. This test is used for clinical purposes. It should not be regarded as investigational or for research. Performed By: #### 1 3964-2 ####[facility] LABCLIA [id number] [place] [address] [place] CNOVon 03-05-2024 CNOV Office Visit (NEURMM ) GIOVANNA NATION ([id number]) 1960 F Date Time Provider Department 03/05/24 8:00 AM CARLOTTA ARCHER NEURMM During your visit today, we recorded the following information about you: Pulse Respiration Blood pressure Weight 82/minute 16/minute 107/74 45.1 kg Carlotta Archer MD 03/05/2024 8:59 PM Signed Neurological [place] March 05, 2024 Consultation My final recommendations will be communicated back to the requesting physician by way of shared medical record or letter via [place] mail. Referring physician:Emily Scanlon [place] [phone] Patient presents with: Consult: headache Accompanied by Self. Referred by Emily Solis [address] [place] [id number]. HISTORY AND PHYSICAL Ms. Nation is a 63 year old female, being seen today for headache for 8 months . She was admitted to the hospital and had extensive work up MRI MRV with no acute lesion. Headache is left temporal parietal ,started severe throbbing ,now is mild dull aching Constant,daily but doesn't interfere with any of her daily activities. 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 3.5 g 2 baclofen 5 mg tablet Take 1 tablet by mouth two times a day as needed (headache/neck pain). 60 tablet 1 multivit-min/ferrous fumarate (MULTI VITAMIN ORAL) Take by mouth. atomoxetine (STRATTERA) 25 mg capsule Take 25 mg by mouth every morning. losartan-hydroCHLOROthi azide (HYZAAR) 50-12.5 mg per tablet Take 1 tablet by mouth once daily. 90 tablet 3 gabapentin (NEURONTIN) 100 mg capsule Take 1 capsule by mouth three times a day for 30 days. 90 capsule 0 lotilaner (XDEMVY) 0.25 % ophthalmic solution Use 1 Drop in both eyes two times a day. (Patient not taking: Reported on 03/05/2024) 10 mL 1 triamcinolone acetonide (KENALOG) 0.1 % cream Apply twice daily to pink papules on lower legs as needed (Patient not taking: Reported on 01/22/2024) 28.4 g 2 lidocaine (LIDODERM) 5 % (Patient not taking: Reported on 01/22/2024) mecobalamin (B12 ACTIVE ORAL) Take by mouth. (Patient not taking: Reported on 01/22/2024) Cholecalciferol, Vitamin D3, 50 mcg (2,000 unit) cap Take 1 capsule by mouth once daily. (Patient not taking: Reported on 01/22/2024) No current facility-administered medications for this visit. Review of Systems: As shown in history All other systems reviewed and are negative. Review of Systems Constitutional: Negative Eyes Positive for Change in vison not corrected by glasses Hent Positive for Difficulty Swallowing Cardiovascular: Negative Respiratory: Negative GI Positive for Constipation and Heartburn : Negative Endocrine: Negative Musculoskeletal Positive for Muscle Pain Integumentary: Negative Heme/Lymph: Negative Allergy/Immunologic: Negative Neurologic Positive for Headache, Numbness/Tingling and Trouble Swallowing Psychiatric: Negative Patient's Review of Systems has been reviewed with the patient and updated as appropriate. Objective Physical Exam BP 107/74 (BP Site: Left Arm, BP Position: Sitting, BP Cuff Size: Regular Adult) Pulse 82 Resp 16 Wt 45.1 kg (99 lb 6.8 oz) LMP 02/11/2006 SpO2 99% BMI 17.61 kg/m? Neurological Exam MENTAL STATUS: Alert, oriented to person, place and time and Follows commands CRANIAL NERVES: Visual godinez intact to confrontation, Face symmetric, Hearing intact to finger rub bilaterally, No dysarthria, Palate elevates symmetrically, Tongue protrudes midline, and Shoulder shrug intact and symmetric MOTOR: No drift and Normal tone MOTOR STRENGTH: Upper and lower extremity 5/5 bilaterally REFLEXES: UE and LE reflexes are equal and reactive SENSATION: Intact light touch COORDINATION: Finger-to- nose-finger intact bilaterally GAIT: Normal-based TANDEM good Data Diagnostic tests reviewed for today's visit: LABS: Lab Results Component Value Date PLT 284 01/14/2024 HB 13.9 01/14/2024 HCT 41.1 01/14/2024 ALB 4.1 01/14/2024 CA 9.3 01/14/2024 (more content not included)... Normal [facility] [id number] 03-04-2024 [id number] HNO ID: [id number] Author: PIERRE MONTGOMERY PT Service: ? Author Type: Physical Therapist Type: [id number] Filed: 03/04/2024 07:55 Note Text: [facility] Therapy Physical Therapy Plan of Care Certification Patient Name: Giovanna Nation : 1960 [facility] #: [id number] Date: 02/19/2024 To: Juliane Denise PA-C From Therapist: Pierre Montgomery PT RE: Patient Certification/ Recertification Your review, approval and electronic signature are required in order to comply with Payor: [facility] MEDICAID / Plan: [facility] COMMUNITY PLAN MEDICAID [facility] / Product Type: Medicaid / regulations. The identified Physical Therapy PLAN OF CARE for the patient is as follows: M25.532 Pain in left wrist (primary encounter diagnosis) M25.512, G89.29 Chronic left shoulder pain PLAN OF CARE UPDATE: Assessment: Giovanna Nation demonstrates difficulty with sleep and turning the head and improvements in overall pain intensity. She has progressed toward goals. Patient continues to present with impairments in ADL's, independence in exercise, overall function, and range of motion that interfere with lifting, physical activities, sleeping, reaching behind back, reaching overhead, use hand with arm at shoulder level, cooking, dressing, cleaning, grooming, carrying . Current prognosis is Good due to: current objective clinical presentation . She will benefit from continued skilled therapy services to meet the updated goals for this plan of care as noted below. Decrease neck pain to 2/10 or less in 10 weeks - Some progression Return B upper traps to WNL flexibility to decrease neck pain - Progressing Decrease [place] frequency within 10 weeks - MET Improve fllexibility of the sub-occipitals to WNL for decreased neck pain - Not met Patient Goals: to get this pain gone Planned Interventions, Frequency, and Duration: 1x/week, 4 weeks Total Number of Visits Planned: 4 Patient to be seen for Therapeutic exercise (50276), Neuromuscular re-education (11498), Manual therapy (55074), Therapeutic activities (23559), Self-retirement management (99858), Patient/Family/Caregive r Education For further details regarding this patient refer to the Physical Therapy electronically documented visit dated 02/19/2024. Provider Attestation I have reviewed the treatment plan for Giovanna Nation, [facility]# [id number] for the period of 02/19/24 -- 03/25/24, established on 02/19/2024. Signature certifies the need for therapy services. Normal [facility] 03-03-2024 [facility] Telephone (OPHTSK) GIOVANNA NATION ([id number]) 1960 F Date Time Provider Department 03/03/24 STARR HAINES OPHPIPO During your visit today, we recorded the following information about you: Heidi Hardin 03/03/2024 1:34 PM Signed Submitted request for prior authorization for Xdemvy via Cover my meds. Denial received because there is no documentation indicating patient has tried and failed existing FDA approved and/or clinical therapies. Please advise Heidi Hardin March 03, 2024 1:33 PM Allergies As of Date: 03/03/2024 Noted Allergy Reaction FLOVENT (FLUTICASONE PROPIONATE) 10/17/2019 14 - Other: See Comments Comments: took breath away PENICILLINS 09/21/2005 2 - Rash PREDNISONE 09/21/2005 1 - Mental Status Change Comments: Depression Date Reviewed: 02/27/2024 Reviewed by: Starr Haines MD - Fully Assessed Reason for Visit: Insurance Authorization [[id number]] Cmt: Xdemvy Prescriptions as of 03/28/2024 - gabapentin (NEURONTIN) 100 mg capsule Take 1 capsule by mouth three times a day for 30 days. - lotilaner (XDEMVY) 0.25 % ophthalmic solution Use 1 Drop in both eyes two times a day. - erythromycin (ROMYCIN) 5 mg/gram (0.5 %) ophthalmic ointment Use 1 application in both eyes daily at bedtime. - baclofen 5 mg tablet Take 1 tablet by mouth two times a day as needed (headache/neck pain). - multivit-min/ferrous fumarate (MULTI VITAMIN ORAL) Take by mouth. - triamcinolone acetonide (KENALOG) 0.1 % cream Apply twice daily to pink papules on lower legs as needed - atomoxetine (STRATTERA) 25 mg capsule Take 25 mg by mouth every morning. - lidocaine (LIDODERM) 5 % - losartan-hydroCHLOROthi azide (HYZAAR) 50-12.5 mg per tablet Take 1 tablet by mouth once daily. - mecobalamin (B12 ACTIVE ORAL) Take by mouth. - Cholecalciferol, Vitamin D3, 50 mcg (2,000 unit) cap Take 1 capsule by mouth once daily. Problem List As Of Date 03/03/2024 Noted Resolved MYALGIA AND MYOSITIS NOS [[id number]] Tobacco use [Z72.0] 10/20/2013 01/07/2020 Depression with anxiety [F41.8] 11/19/2015 03/17/2021 Closed fracture of distal end of left radius [S*08/21/2016 07/02/2018 Shoulder stiffness [M25.619] 11/16/2016 Radiculopathy, cervical region [M54.12] 01/08/2017 Reflex sympathetic dystrophy of left upper extr*01/10/2017 Primary osteoarthritis of first carpometacarpal* 017 Lateral epicondylitis of left elbow [M77.12] 03/07/2017 Cubital tunnel syndrome on left [G56.22] 03/07/2017 Pain in left wrist [M25.532] 05/16/2017 Chronic left shoulder pain [M25.512, G89.29] 05/16/2017 Pain in left elbow [M25.522] 05/30/2017 Numbness and tingling in left upper extremity [*05/30/2017 Tobacco abuse, 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] 01/07/2020 Vitamin D deficiency [E55.9] 01/07/2020 Vitamin B12 deficiency [E53.8] 01/07/2020 MDD (major depressive disorder), recurrent epis*05/07/2021 Acute pain of right shoulder [M25.511] 11/20/2023 New daily persistent headache [G44.52] 12/28/2023 ADHD [F90.9] 12/30/2023 Primary hypertension [I10] 12/30/2023 Left facial numbness [R20.0] 12/30/2023 Headache [R51.9] 01/14/2024 Encounter Status:Closed by HEIDI HARDIN on 03/28/24 [facility] CNTHERAPYon 02-19-2024 CNTHERAPY OT/PT/Speech Visit (PTWS) GIOVANNA NATION ([id number]) 1960 F Date Time Provider Department 02/19/24 9:30 AM PIERRE MONTGOMERY PTWS Date Time Provider Department Center 02/19/2024 9:30 AM [id number], COREY PTWS Duarte Rojas Reason for Visit: PT Progress Note [1596] Primary Visit Diagnosis:Pain in left wrist [M25.532] Other Visit Diagnosis:Chronic left shoulder pain [M25.512, G89.29] Allergies As of Date: 02/19/2024 Noted Allergy Reaction FLOVENT (FLUTICASONE PROPIONATE) 10/17/2019 14 - Other: See Comments Comments: took breath away PENICILLINS 09/21/2005 2 - Rash PREDNISONE 09/21/2005 1 - Mental Status Change Comments: Depression Date Reviewed: 01/22/2024 Reviewed by: Michael Flynn MD - Fully Assessed Prescriptions as of 03/04/2024 - lotilaner (XDEMVY) 0.25 % ophthalmic solution Use 1 Drop in both eyes two times a day. - erythromycin (ROMYCIN) 5 mg/gram (0.5 %) ophthalmic ointment Use 1 application in both eyes daily at bedtime. - baclofen 5 mg tablet Take 1 tablet by mouth two times a day as needed (headache/neck pain). - gabapentin (NEURONTIN) 100 mg capsule Take 1 capsule by mouth three times a day for 30 days. - multivit-min/ferrous fumarate (MULTI VITAMIN ORAL) Take by mouth. - triamcinolone acetonide (KENALOG) 0.1 % cream Apply twice daily to pink papules on lower legs as needed - atomoxetine (STRATTERA) 25 mg capsule Take 25 mg by mouth every morning. - lidocaine (LIDODERM) 5 % - losartan-hydroCHLOROthi azide (HYZAAR) 50-12.5 mg per tablet Take 1 tablet by mouth once daily. - mecobalamin (B12 ACTIVE ORAL) Take by mouth. - Cholecalciferol, Vitamin D3, 50 mcg (2,000 unit) cap Take 1 capsule by mouth once daily. Normal [facility] CNOVon 02-18-2024 CNOV Office Visit (PNMDNA ) GIOVANNA NATION ([id number]) 1960 F Date Time Provider Department 02/18/24 11:30 AM RAJEEV HODGE PNNA During your visit today, we recorded the following information about you: Rajeev Hodge MD 02/18/2024 12:36 PM Signed [facility] Date: February 18, 2024 - 11:13 AM Giovanna Nation is seen in consultation requested by Thi Moss for an opinion regarding chronic neck pain. My final recommendations will be communicated back to the requesting physician by way of shared medical record or via US mail. Chief Complaint: neck pain SUBJECTIVE: Giovanna Nation, is a 63 year old female who presents with neck pain. The pain started 9+ months ago, with no known injury or trauma. The pain onset was gradual. The patient states that the current pain is persistent. Her pain is located in the bilateral posterior cervical region and does not radiate.. // The pain is described as aching. The pain intensity is rated 5. The pain is exacerbated by no known factors and relieved by no known factors. Symptoms interfere with sleeping. Litigation: No. Worker's Compensation: No. Prior pain treatment has included: Medication(s): Gabapentin, baclofen ALLERGIES Allergen Reactions Flovent [Fluticason* Other: See Comments took breath away Penicillins Rash Prednisone Mental Status Change Depression Current Medications: Pain medications reviewed and reconciled in the medication list: Yes. Current Outpatient Medications Medication Sig baclofen 5 mg tablet Take 1 tablet by mouth two times a day as needed (headache/neck pain). gabapentin (NEURONTIN) 100 mg capsule Take 1 capsule by mouth three times a day for 30 days. multivit-min/ferrous fumarate (MULTI VITAMIN ORAL) Take by mouth. triamcinolone acetonide (KENALOG) 0.1 % cream Apply twice daily to pink papules on lower legs as needed (Patient not taking: Reported on 01/22/2024) atomoxetine (STRATTERA) 25 mg capsule Take 25 mg by mouth every morning. lidocaine (LIDODERM) 5 % (Patient not taking: Reported on 01/22/2024) losartan-hydroCHLOROthi azide (HYZAAR) 50-12.5 mg per tablet Take 1 tablet by mouth once daily. mecobalamin (B12 ACTIVE ORAL) Take by mouth. (Patient not taking: Reported on 01/22/2024) Cholecalciferol, Vitamin D3, 50 mcg (2,000 unit) cap Take 1 capsule by mouth once daily. (Patient not taking: Reported on 01/22/2024) No current facility-administered medications for this visit. PAST MEDICAL HISTORY No date: Attention deficit disorder without mention of hyperactivity Comment: Adult 08/21/2016: Closed fracture of distal end of left radius No date: Excessive or frequent menstruation 12/2020: History of colonoscopy No date: Myalgia and myositis, unspecified 12/30/2023: Primary hypertension PAST SURGICAL HISTORY No date: APPENDECTOMY No date: APPENDECTOMY HX No date: LIG/TRNSXJ FLP TUBE ABDL/VAG APPR UNI/BI Comment: Tubal ligation FAMILY HISTORY Problem Relation Age of Onset Cancer Mother Cervical cancer- treated Psychiatry Sister suicide Ischemic Heart Disease Brother 60 [place], heavy smoker, Etoh Psychiatry Son Opoid dependency Cancer Other Niece (sister's daughter) Social History: Alcohol Use: No Tobacco Use: 0.5 packs/day Types: Cigarettes Drug Use: Never Employer And Job Title: No employer specified (Student) Years Of Education Completed: Not specified Marital Status: with 1 child REVIEW OF SYSTEMS: Constitutional: (-) Fever (-) Night Sweats (-) Weight Gain (-) Weight Loss (-) Fatigue Cardiovascular: (-) Chest Pain (-) Palpitations (-) Lightheadedness (-) Swelling of Ankles (-) Hx Heart Surgery Respiratory: (-) Shortness of Breath (-) Cough (-) Wheezing (-) Snoring Gastrointestinal: (-) Incontinence (-) Abdominal Pain (-) Diarrhea (-) Constipation (-) Nausea/Vomiting (-) Heart Burn Endocrine: (-) Thyroid Disorder (-) Diabetes Hematologic: (-) Prolonged Bleeding (-) Easy Bruising Genitourinary: (-) Incontinence (-) Frequency (-) Urinary Urgency Skin: (-) Rashes (-) Itching (-) Other Lesions Neurologic: (+) Headache (-) Double Vision (-) Confusion (-) Paralysis (-) Vertigo (-) Syncope Psychiatric: (-) Depression (-) Anxiety (-) Delusions (-) Hallucinations (-) Suicidal Thoughts OARRS Report reviewed: Yes Narcotic Agreement reviewed and signed?: N/A Baseline Urine Toxicology obtained: N/A Urine Panel: No results found for: UQCANN, UQBNZL, GHB0GLF, UQAMPH, UQMAMP, UQBUPRE, UQNORBUP, UQMTHD, UQEDDP, UQTRAM, UQDTRM, UQFNTL, UQNFTL, UQCODE, UQMORP, UQDCDN, UQHCOD, UQOXYC, UQHMOR, UQOXYM, UQCREA, UQPH, UQSPGR, UQOXID, UQSPQ The pain panel was N/A OBJECTIVE: Performed in conjunction with observation. The patient was alert and oriente (more content not included)... Normal [facility] CNTHERAPYon 02-12-2024 CNTHERAPY OT/PT/Speech Visit (PTWS) GIOVANNA NATION ([id number]) 1960 F Date Time Provider Department 02/12/24 8:30 AM PIER[facility]TGOM[facility] PTWS Date Time Provider Department Center 02/12/2024 8:30 AM [id number] Duarte Rojas Reason for Visit: Physical Therapy [503] Primary Visit Diagnosis:Acute pain of right shoulder [M25.511] Allergies As of Date: 02/12/2024 Noted Allergy Reaction FLOVENT (FLUTICASONE PROPIONATE) 10/17/2019 14 - Other: See Comments Comments: took breath away PENICILLINS 09/21/2005 2 - Rash PREDNISONE 09/21/2005 1 - Mental Status Change Comments: Depression Date Reviewed: 01/22/2024 Reviewed by: Michael Flynn MD - Fully Assessed Prescriptions as of 02/12/2024 - gabapentin (NEURONTIN) 100 mg capsule Take 1 capsule by mouth three times a day for 30 days. - multivit-min/ferrous fumarate (MULTI VITAMIN ORAL) Take by mouth. - triamcinolone acetonide (KENALOG) 0.1 % cream Apply twice daily to pink papules on lower legs as needed - atomoxetine (STRATTERA) 25 mg capsule Take 25 mg by mouth every morning. - lidocaine (LIDODERM) 5 % - losartan-hydroCHLOROthi azide (HYZAAR) 50-12.5 mg per tablet Take 1 tablet by mouth once daily. - mecobalamin (B12 ACTIVE ORAL) Take by mouth. - Cholecalciferol, Vitamin D3, 50 mcg (2,000 unit) cap Take 1 capsule by mouth once daily. Normal [facility] CASE MANAGEMon 01-15-2024 CASE MANAGEM HNO ID: [id number] Author: KATHE HERNANDEZ RN Service: ? Author Type: Registered Nurse Type: Care Mgt Progress Note Filed: 01/15/2024 11:30 Note Text: CARE MANAGEMENT DISCHARGE NOTE SERVICE DATE: January 15, 2024 SERVICE TIME: 11:28 AM Discharge order written for today. Discharge: Home Discharge Transportation: Self Nurse: Evelia Suarez LPN updated on discharge. Admission Date: 01/14/2024 LOS: 0 days Discharge Arrangement Discharge Arrangement: Home with Self Care Caregiver Assessment Caregiver is ready, willing and able to meet the patient's needs as recommended by the inter-professional team: No Caregiver needed Transportation Arrangements Transportation Arrangements: Car Date of Trip: 01/15/24 Destination: Home Handoff Communication: Handoff to: Primary Care Physician Primary Care Physician Name/Phone: PCP: Michael Flynn MD - Additional Information: Discharge Information Row Name ED to Hosp-Admission (Current) from 01/14/[address] [facility] Follow-Up Appointment Provider Name PCP: Mcihael Flynn MD - SIGNATURE: Kathe Hernandez RN PATIENT NAME: Giovanna Nation DATE: January 15, 2024 TIME: 11:28 AM CONTACT #: [phone] [facility] CASE MGT INIT [place] 2023 CASE MGT INIT [facility] HNO ID: [id number] Author: KATHE HERNANDEZ RN Service: ? Author Type: Registered Nurse Type: Care Mgt Initial Assessment Filed: 01/15/2024 11:26 Note Text: CARE MANAGEMENT: ASSESSMENT AND DISCHARGE PLAN SERVICE DATE: January 15, 2024 SERVICE TIME: 11:24 AM test facility engineer spoke with patient at bedside to complete Care Management Assessment. Introduction made and role of Care Management explained. PCP: Michael Flynn MD - patient confirmed Primary Contact: None Noted Admission Status: Observation Insurance Provider: [facility] [employer] MEDICAID OF [place] Discharge Planning requested by: Per Department Practice Potential Transition Plans Home Advance Directives Current Advance Directive: None Current Living Arrangements and Support Lives with: Alone Type of Residence: Private Residence (House) (House: 1 story with basement and 3 entry steps at front and back) Does the patient have to climb stairs at home?: stairs outside the home;stairs within the home;Yes Support: How do you manage to accomplish the following: Independent: Ambulation;Transportati on to appointments/community; Bathe/Shower;Dress;Meal s/Meal Prep;Going to the bathroom;Medication Management Current Services/Equipment Current Post-Acute Service(s): None Discharge Planning Patient Goal(s): Be able to go home [place] of Choice Explained: [place] of Choice Given: No Reason Not Given: No placements necessary Are you interested in bedside delivery of your medications? No Discharge Planning Participant(s): Patient Caregiver Assessment: Caregiver is ready, willing and able to meet the patient's needs as recommended by the inter-professional team: No Caregiver needed Transport at Discharge: Transportation Arrangements: Car Date of Trip: 01/15/24 Destination: Home Needs Prior to Discharge: Needs Prior to Discharge: Ready for Discharge Post-Acute Discharge Plan: From home. Lives alone. Independent. No Active Services. No DME. Retired. Drives. Discharge Plan: Home Discharge Transportation: Self. SIGNATURE: Kathe Hernandez RN PATIENT NAME: Giovanna Nation DATE: January 15, 2024 TIME: 11:24 AM CONTACT #: [phone] [facility] 01-15-2024 [facility] HNO ID: [id number] Author: EMILY TATUM MD Service: Hospital Medicine Author Type: Physician Type: Discharge Summary Filed: 01/15/2024 12:59 Note Text: DISCHARGE SUMMARY PATIENT NAME: Giovanna Nation ADMISSION DATE: 01/14/2024 DISCHARGE DATE: 01/15/2024 ATTENDING PHYSICIAN: No att. providers found Code Status: DNR-CCA Highest Readmission Risk Score: 10 The 30 day readmissions risk score is derived from an internally validated risk model which evaluates patient level characteristics, utilization history, medication orders and lab results up until the day of discharge. Patients with a score of 40 or above are considered highest risk for readmission. Specific patient level drivers will be listed at the bottom of the summary. CONSULTING TEAMS DURING HOSPITALIZATION: Neurology: Dr. Sunshine REASON FOR HOSPITALIZATION: Headache DIAGNOSIS: Primary Diagnosis: Cervicogenic Headache OPERATIONS DURING HOSPITALIZATION: None PROCEDURES DURING HOSPITALIZATION: No procedures performed HOSPITAL COURSE: Ms. Nation is a 63 y/o F presenting with eight months of progressive headaches; she reports the pain typically gets worse with laying flat, associated with pain on the left side of her head and numbness to the left side of her face. She has had similar symptoms in the past, and recently saw her primary care who recommended an MRI brain. She reports her headaches were progressing to the point that she proceeded to the Emergency Room for evaluation. She was seen by Neurology who felt her headache was likely cervicogenic; she responded well to gabapentin and had an unremarkable MRI brain. MRI cervical spine with degeneraytive changes causing slight impingement of the cord. Her headache resolved completely during her stay in the hospital, and she will be discharged home with follow up with Neuro and spine. Baclofen prn and gabapentin ordered atd/c. Transitions of Care Critical Issues: SPECIALIST FOLLOW-UP: Neuro, Spine LABS AND PROCEDURES PENDING AT DISCHARGE: No pending results. PATIENT CONDITION AT DISCHARGE: Stable DISCHARGE DISPOSITION: Home with Self Assisted with Self Care GENERAL: Alert, no distress, cooperative SKIN: Skin color, texture, turgor normal. No rashes or lesions. HEAD/SINUSES: No significant findings EYES: EOMI BACK: Back symmetric, Normal curvature, ROM normal LUNGS: Lungs clear to auscultation, Good diaphragmatic excursion CARDIAC: Normal S1 and S2; no rubs, murmurs, or gallops ABDOMEN: Abdomen soft, non-tender, BS normal, No masses or organomegaly EXTREMITIES: Normal exam of the extremities, occasional areas of hyperpigmentation, small and resolving per patient NEURO: Grossly normal cognition, motor function, and cranial nerves III-XII. DIET: Resume pre-hospital diet ACTIVITY: Resume pre-hospital activity ALLERGIES Allergen Reactions Flovent [Fluticason* Other: See Comments took breath away Penicillins Rash Prednisone Mental Status Change Depression DISCHARGE MEDICATION: Medication List START taking these medications baclofen 5 mg tablet Take 1 tablet by mouth three times a day as needed (headache/neck pain) for up to 14 days. gabapentin 100 mg capsule Commonly known as: NEURONTIN Take 1 capsule by mouth three times a day for 30 days. CONTINUE taking these medications atomoxetine 25 mg capsule Commonly known as: STRATTERA B12 ACTIVE ORAL Cholecalciferol (Vitamin D3) 50 mcg (2,000 unit) Cap Take 1 capsule by mouth once daily. lidocaine 5 % Commonly known as: LIDODERM losartan-hydroCHLOROthi azide 50-12.5 mg per tablet Commonly known as: HYZAAR Take 1 tablet by mouth once daily. triamcinolone acetonide 0.1 % cream Commonly known as: KeNALog Apply twice daily to pink papules on lower legs as needed Where to Get Your Medications These medications were sent to [facility] [id number] [place] [address] - [address] [facility] - [phone] [id number] [facility] [address] baclofen 5 mg tablet gabapentin 100 mg capsule FUTURE APPOINTMENTS: Follow Up with PCP: Michael Flynn MD Follow Up with Neurology, Spine Discharge Information Row Name ED to Hosp-Admission (Discharged) from 01/14/2024 in [facility] Medical Follow-Up Appointment Provider Name PCP: Michael Flynn MD - The patient's risk for 30-day readmission is determined using the following contributing factors: Pt variables contributing to increased readmission risk: 16 Most Recent BUN Result 10 Active Medication Orders 9.3 First Resulted Calcium During Admission 1 Previous ED Visit (6 mos.)? 1 Number of Previous ED Visits (6 mos.) 1 Insurance - Medicaid 1 Discharge Disposition - Home Plan of care discussed with Provider, RN, Patient I have performed the [id number] and relevant services for a total of < 30 minutes. SIGNATURE: Emily Tatum MD (more content not included)... Normal [facility] CONSULT PROGon 01-15-2024 CONSULT PROG HNO ID: [id number] Author: JONG HEAD MD Service: Neurology General Author Type: Physician Type: Consult Progress Note Filed: 01/15/2024 10:32 Note Text: The Teleneurologist or ALBERTO is available from 8 am to 5 pm on weekdays. On weekends, at [facility] and [facility], the Teleneurologist or ALBERTO is available from 8 am to 5 pm, [facility] 8 am to 12 pm, [facility] 1 pm to 5 pm, [facility] 8 am to 12 pm, [place] 1 pm to 5 pm. Statutory holidays do not have teleneuro coverage. [facility]: During Off hours for Teleneurology please page (not call) [place] [facility] [id number] medical office professional instructor for concerns. [facility]: During Off hours for Teleneurology please page (not call) [place] [facility] [id number] medical office professional instructor for concerns. [facility]: There is no off-hours coverage for Teleneurology. CC And HPI This is a patient with severe headache. Her headaches are much better. She is practically symptom-free today. 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 She denies any significant new neurological symptoms. Neurologic examination: BP 124/85 Pulse 74 Temp 36.6 ?C (97.9 ?F) (Oral) Resp 18 Ht 160 cm (5' 3) Wt 46.6 kg (102 lb 11.8 oz) LMP 02/11/2006 SpO2 98% BMI 18.20 kg/m? She is awake alert and oriented. Speech and language are normal. Limited cranial nerve examination is normal reflexes done remotely appear to be unremarkable. Her gait is normal. Her balance is normal. Review of Data and Images Normal MRI brain. No acute intracranial abnormality. Normal intracranial MRV. No evidence of intracranial venous thrombosis or focal significant stenosis. Developmental cervical canal stenosis with mild superimposed degenerative changes causing slight impingement of the cord and multilevel bony foraminal narrowing as detailed above. Cervical Anatomic Variant: None. Assume 7 cervical vertebrae with counting from the craniocervical junction. Common Neurology Labs: Last 3 sets of ESR, CRP, CK, Vitamin B12, MMA, Folate, Vitamin D, Copper Latest Ref Rng AND Units 06/08/2023 05/21/2023 06/13/2022 ESR, WSR WSR 0 - 20 mm/hr 26 78 5 Latest Ref Rng AND Units 01/14/2024 06/08/2023 05/21/2023 CRP CRP <0.9 mg/dL <0.3 <0.3 4.6 Latest Ref Rng AND Units 05/06/2021 05/06/2021 CK CK 42 - 196 U/L 260 303 Latest Ref Rng AND Units 12/28/2023 05/09/2021 01/26/2021 Vitamin B12 Vitamin B12 232 - 1,245 pg/mL >2,000 >2,000 932 No data to display No data to display Latest Ref Rng AND Units 06/08/2023 06/13/2022 05/09/2021 Vitamin D Vitamin D 25 Hydroxy 31.0 - 80.0 ng/mL 36.0 44.8 44.8 Latest Ref Rng AND Units 01/26/2021 Copper Copper 85 - 155 ug/dL 76 CRP is normal. Assessment and Recommendations Cervicogenic headache. She is better. She needs to follow-up with neurology and spine. Teleneurology will not follow this patient. Please call for additional assistance. Jong Head MD Neurology Attending Physician Neurological [facility] Neurology [place] January 15, 2024 Patient was seen using telemedicine services on this date. Examination was completed by Teleneurology video (Ch[employer] system) assisted by Teleneurology nurse at bedside. I spent a total of approximately 25 minutes on the date of service that included preparing to see the patient, video evaluation including examination by Teleneurology nurse, completing clinical documentation, obtaining and/or reviewing separately obtained history, counseling and educating the patient/family/caregive r, ordering medications, tests, or procedures, communicating with other HCP's (not separately reported), independently interpreting results (not separately reported), communicating results of the studies, and care coordination not separately reported. Current Facility-Administered Medications: NaCl 0.9% iv flush bag cholecalciferol 2,000 Units tab(s) (VITAMIN D3) keTORolac 30 mg injection (Toradol) acetaminophen 650 mg tab(s) (TYLENOL) ibuprofen 400 mg tab(s) (MOTRIN) losartan 50 mg tab(s) (COZAAR) AND hydroCHLOROthiazide 12.5 mg tab(s) [COMPLETED] MRV BRAIN WO/W IVCON AND iv contrast (radiology procedure) pantoprazole DR 20 mg tab(s) (PROTONIX) gabapentin 100 mg cap(s) (NEURONTIN) [facility] HNO ID: [id number] Author: RADHA MENESES RT(R) Service: Radiology Author Type: Technologist Type: [facility] Filed: 01/14/2024 14:07 Note Text: Radiology Service Progress Note DATE OF SERVICE: January 14, 2024 TIME: 2:06 PM PATIENT IDENTITY VERIFICATION COMPLETED USING TWO (2) STANDARD IDENTIFIERS: Name and Date of confirmed by patient verbally and Name and Date of confirmed by identification band. FALL SCREENING: Has the patient had 2 falls in the last year or 1 fall with injury or currently using an Ambulatory Assistive Device (Walker, Cane, Wheelchair, Crutches, etc.)? Inpatient: Screened on floor PATIENT GENDER DATA: Female. status: : No status: NO. PATIENT RELEVANT IMPLANT DATA REVIEWED: Yes PATIENT PRESENTS WITH AN IMPLANTABLE OR ATTACHED JAVA LEAD ENGINEER: No ALLERGIES: Reviewed and unchanged CONTRAST ALLERGY: NO. EXAM: MRI - CONTRAST TYPE: GROUP II PERIPHERAL IV DATA: Inpatient - refer to LDA documentation RADIOLOGY DEPARTMENT: MR; Exam(s) Completed: Head: Routine Brain Sagittal Sinus MRV Spine: Cervical spine SIGNATURE: Radha Meneses, MRI/ RAMIRO Spencer PATIENT NAME: Giovanna Nation DATE: January 14, 2024 TIME: 2:06 PM [facility] HNO ID: [id number] Author: RHONA AUSTIN RT(R) Service: Radiology Author Type: Technologist Type: [facility] Filed: 01/14/2024 05:32 Note Text: Radiology Service Progress Note PATIENT NAME: Giovanna Nation DATE OF SERVICE: January 14, 2024 TIME: 5:20 AM PATIENT IDENTITY VERIFICATION COMPLETED USING TWO (2) IDENTIFIERS: Name and Date of confirmed by patient verbally and Name and Date of confirmed by identification band. FALL SCREENING: Has the patient had 2 falls in the last year or 1 fall with injury or currently using an Ambulatory Assistive Device (Walker, Cane, Wheelchair, Crutches, etc.)? Emergency Room Patient: Screened in ED PATIENT GENDER DATA: Female. status: : No status: NO. PATIENT RELEVANT IMPLANT DATA REVIEWED: Not Applicable PATIENT PRESENTS WITH AN IMPLANTABLE OR ATTACHED JAVA LEAD ENGINEER: No RADIOLOGY DEPARTMENT: CT; Exam(s) Completed: Brain PERIPHERAL IV DATA: Inpatient: see LDA documentation SIGNED BY: RT Uriel(R) January 14, 2024 5:20 AM [facility] CBC W Auto Differential pane l (Bld)on 01-14-2024 Basophils (Bld) [#/Vol] 0.05 10*3/uL Normal <0.11 [facility] Comment on above: Order Comment: Speci men Type: BLOOD SPECIMEN Ordering Facility: [facility] Address: [address] [place] [address] Performed By: #### 5 7021-8 #### [facility] CLIA [id number] [address] [place] Basophils/100 WBC (Bld) 0.8 % [facility] Comment on above: Order Comment: Speci men Type: BLOOD SPECIMEN Ordering Facility: [facility] Address: [address] [place] [address] Performed By: #### 5 7021-8 #### [facility] CLIA [id number] [address] [place] [address] [place] Differential cell count method Nom (Bld) Auto [facility] Comment on above: Order Comment: Speci men Type: BLOOD SPECIMEN Ordering Facility: [facility] Address: [address] [place] [address] Performed By: #### 5 7021-8 #### [facility] CLIA [id number] [address] [place] [address] [place] Eosinophils (Bld) [#/Vol] 0.12 10*3/uL Normal <0.46 [facility] Comment on above: Order Comment: Speci men Type: BLOOD SPECIMEN Ordering Facility: [facility] Address: [address] [place] [address] Performed By: #### 5 7021-8 #### [facility] CLIA [id number] [address] [place] [address] [place] Eosinophils/100 WBC (Bld) 2.0 % [facility] Comment on above: Order Comment: Speci men Type: BLOOD SPECIMEN Ordering Facility: [facility] Address: [address] [place] [address] Performed By: #### 5 7021-8 #### [facility] CLIA [id number] [address] [place] [address] [place] Erythrocyte distribution width (RBC) [Ratio] 11.9 % Normal 11.5-15.0 [facility] Comment on above: Order Comment: Speci men Type: BLOOD SPECIMEN Ordering Facility: [facility] Address: [address] [place] [address] Performed By: #### 5 7021-8 #### [facility] CLIA [id number] [address] [place] [address] [place] Hematocrit (Bld) [Volume fraction] 41.1 % Normal 36.0-46.0 [facility] Comment on above: Order Comment: Speci men Type: BLOOD SPECIMEN Ordering Facility: [facility] Address: [address] [place] [address] Performed By: #### 5 7021-8 #### [facility] CLIA [id number] [address] [place] [address] [place] Hemoglobin (Bld) [Mass/Vol] 13.9 g/dL Normal 11.5-15.5 [facility] Comment on above: Order Comment: Speci men Type: BLOOD SPECIMEN Ordering Facility: [facility] Address: [address] [place] [address] Performed By: #### 5 7021-8 #### [facility] CLIA [id number] [address] [place] [address] [place] Immature granulocytes (Bld) [#/Vol] 10*3/uL Normal <0.10 [facility] Comment on above: Order Comment: Speci men Type: BLOOD SPECIMEN Ordering Facility: [facility] Address: [address] [place] [address] Performed By: #### 5 7021-8 #### [facility] CLIA [id number] [address] [place] Immature granulocytes/100 WBC (Bld) 0.3 % Normal [facility] Comment on above: Order Comment: Speci men Type: BLOOD SPECIMEN Ordering Facility: [facility] Address: [address] [place] [address] Performed By: #### 5 7021-8 #### [facility] CLIA [id number] [address] [place] Lymphocytes (Bld) [#/Vol] 2.59 10*3/uL Normal 1.00-4.00 [facility] Comment on above: Order Comment: Speci men Type: BLOOD SPECIMEN Ordering Facility: [facility] Address: [address] [place] [address] Performed By: #### 5 7021-8 #### [facility] CLIA [id number] [address] Lymphocytes/100 WBC (Bld) 43.0 % Normal [facility] Comment on above: Order Comment: Speci men Type: BLOOD SPECIMEN Ordering Facility: [facility] Address: [address] [place] [address] Performed By: #### 5 7021-8 #### [facility] CLIA [id number] [address] STATES [facility] MCH (RBC) [Entitic mass] 30.4 pg Normal 26.0-34.0 [facility] Comment on above: Order Comment: Speci men Type: BLOOD SPECIMEN Ordering Facility: [facility] Address: [address] [place] [address] Performed By: #### 5 7021-8 #### [facility] CLIA [id number] [address] [place] MCHC (RBC) [Mass/Vol] 33.8 g/dL Normal 30.5-36.0 [facility] Comment on above: Order Comment: Speci men Type: BLOOD SPECIMEN Ordering Facility: [facility] Address: [address] [place] [address] Performed By: #### 5 7021-8 #### [facility] CLIA [id number] [address] OF [facility] MCV (RBC) [Entitic vol] 89.9 fL Normal 80.0-100.0 [facility] Comment on above: Order Comment: Speci men Type: BLOOD SPECIMEN Ordering Facility: [facility] Address: [address] [place] [address] Performed By: #### 5 7021-8 #### [facility] CLIA [id number] 1000 [place] [address] [place] Monocytes (Bld) [#/Vol] 0.49 10*3/uL Normal <0.87 [facility] Comment on above: Order Comment: Speci men Type: BLOOD SPECIMEN Ordering Facility: [facility] Address: [address] [place] [address] Performed By: #### 5 7021-8 #### [facility] CLIA [id number] [address] [place] Monocytes/100 WBC (Bld) 8.1 % Normal [facility] Comment on above: Order Comment: Speci men Type: BLOOD SPECIMEN Ordering Facility: [facility] Address: [address] [place] [address] Performed By: #### 5 7021-8 #### [facility] CLIA [id number] 1000 [place] [address] [place] Neutrophils (Bld) [#/Vol] 2.76 10*3/uL Normal 1.45-7.50 [facility] Comment on above: Order Comment: Speci men Type: BLOOD SPECIMEN Ordering Facility: [facility] Address: [address] [place] [address] Performed By: #### 5 7021-8 #### [facility] CLIA [id number] 1000 [place] [address] [place] Neutrophils/100 WBC (Bld) 45.8 % Normal [facility] Comment on above: Order Comment: Speci men Type: BLOOD SPECIMEN Ordering Facility: [facility] Address: [address] [place] [address] Performed By: #### 5 7021-8 #### [facility] CLIA [id number] [address] [place] [address] [place] Nucleated RBC (Bld) [#/Vol] 10*3/uL Normal <0.01 [facility] Comment on above: Order Comment: Speci men Type: BLOOD SPECIMEN Ordering Facility: [facility] Address: [address] [place] [address] Performed By: #### 5 7021-8 #### [facility] CLIA [id number] [address] [place] [address] [place] Nucleated RBC/100 WBC (Bld) [Ratio] 0.0 /100 WBC Normal [facility] Comment on above: Order Comment: Speci men Type: BLOOD SPECIMEN Ordering Facility: [facility] Address: [address] [place] [address] Performed By: #### 5 7021-8 #### [facility] CLIA [id number] 1000 [place] [address] [place] Platelet mean volume (Bld) [Entitic vol] 9.2 fL Normal 9.0-12.7 [facility] Comment on above: Order Comment: Speci men Type: BLOOD SPECIMEN Ordering Facility: [facility] Address: [address] [place] [address] Performed By: #### 5 7021-8 #### [facility] CLIA [id number] [address] [place] [address] [place] Platelets (Bld) [#/Vol] 284 10*3/uL Normal 150-400 [facility] Comment on above: Order Comment: Speci men Type: BLOOD SPECIMEN Ordering Facility: [facility] Address: [address] [place] [address] Performed By: #### 5 7021-8 #### [facility] CLIA [id number] [address] [place] [address] [place] RBC (Bld) [#/Vol] 4.57 10*6/uL Normal 3.90-5.20 [facility] Comment on above: Order Comment: Speci men Type: BLOOD SPECIMEN Ordering Facility: [facility] Address: [address] [place] [address] Performed By: #### 5 7021-8 #### [facility] CLIA [id number] [address] [place] [address] [place] WBC (Bld) [#/Vol] 6.03 10*3/uL Normal 3.70-11.00 [facility] Comment on above: Order Comment: Speci men Type: BLOOD SPECIMEN Ordering Facility: [facility] Address: [address] [place] [address] Performed By: #### 5 7021-8 #### [facility] CLIA [id number] [address] [place] [address] [place] CONSULTon 01-14-2024 CONSULT HNO ID: [id number] Author: THI MOSS PA-C Service: Neurology General Author Type: Physician Drywall Mechanic Type: Consults Filed: 01/14/2024 10:50 Note Text: TELENEUROLOGY VISIT - NEW CONSULTATION Name and :Giovanna Nation 1960 Patient consented to teleneurology visit on order for consult. New Patient: I'm Thi Moss PA-C , I'm a licensed in the [facility]. I want to confirm your location in [place]. Virtual visits are a convenient way for us to meet for the first time, but there are some situations in which an in-person evaluation may be required at a later time. I want to check in to confirm your consent to be seen virtually today. The Teleneurologist or ALBERTO is available from 8 am to 5 pm on weekdays. On weekends, at [place] and [place], the Teleneurologist or [facility]ERTO is available from 8 am to 5 pm, [facility] 8 am to 12 pm, [facility] 1 pm to 5 pm, [facility] 8 am to 12 pm, [place] 1 pm to 5 pm. Statutory holidays do not have teleneuro coverage. [place]: During Off hours for Teleneurology please page (not call) [facility] [address] medical office professional instructor for concerns. [place]: During Off hours for Teleneurology please page (not call) [place] [facility] [phone] medical office professional instructor for concerns. [facility]: There is no off-hours coverage for Teleneurology. Name: Giovanna Nation Age: [age] year old Gender: female Chief Complaint:Headache (Been going on for 8 months, already has MRI scheduled, pain increased this morning) Admission Date: 01/14/2024 Consult Requested By: , recommendations will be communicated by shared medical record. HPI: Per admitting note: Patient presenting for evaluation secondary to a headache. Patient reports that over the course of the last 8 months she has been dealing with a consistent headache. Patient states initially she thought it was associated with maybe a sinus infection. Patient states that it is a day and night headache that seems to be get worse when she lays flat. Patient states that its recently been associated with some worsening of pain on the left side of her head. She states that she has a fullness feeling in her left vertex that is worse with palpation. She also endorses some mild numbness of the left side of the face and now she states that she has pain in her left paraspinal neck and left anterior neck. Was not associated with any sort of injuries. No MVAs or chiropractic manipulations. Patient states that she has been taking Tylenol for it this week it has not really been alleviating the symptoms she does not really like taking any other medications so she has not. Patient reports she has an MRI scheduled in 2 weeks or so, but states that the pain was getting bad enough that she is presenting for emergent evaluation. Patient does also states that in that time. She received an RSV vaccination which she had an adverse side effect to where she became very ill and developed a chronic cough. Following that vaccination she reports that she had a unintended weight loss. Last March had something similar. [place] like she had a sinus infection. Head and neck hurt. Nothing was done at that time. Continued since that time but has gotten worse over the past couple of weeks. In April of 2023, got RSV vaccine and had horrible cough and was very sick afterwards. Seems like since , her headaches have gotten worse and worse. Feels headache constantly, but worse when lying down. Also has a really sore neck. Hurts throughout whole head but seems more centralized by the top of the head on the left. Not worse with head movement. There is pain radiating into arms but that has improved. Lifted a 30 pound iron umbrella stand that her hurt her eye further. Has trouble opening left eye in the morning. Numb sensation in left V2 branch. No vision changes. Also had dental work in April, wondering if that was playing a role. Coughing, sneezing, and baring down makes it worse. Laying down, pain is a 10/10. Right now 7/10. Top of the head is a stabbing pain. Has tried tylenol and has not helped. Pain with eye movement in the left eye when looking to the right. Has had very bad reaction to steroids. Review of Systems Review of systems as indicated in HPI. All other systems negative. 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 Normal [facility] CRP SerPl-ncon 01-14-2024 CRP [Mass/Vol] mg/L Normal <0.9 [facility] Comment on above: Order Comment: Speci men Type: BLOOD SPECIMENOrdering Facility: [facility] Address: [address] [place] [address] Performed By: #### 1 9123-9, 73713-5, 1987-11 ####[facility] [id number] [address] OF [facility] CT BRAIN WO IVCONon 01-14-[address] BRAIN WO IVCON * * *Final Report* * * DATE OF EXAM: Jan 14 2024 5:36AM [facility] [place]IN [place] / PROCEDURE REASON: Headache, chronic, new features or increased frequency * * * * Physician Interpretation * * * * EXAMINATION: CT BRAIN WO IVCON CLINICAL HISTORY: Headache x8 months. TECHNIQUE: Serial axial images without IV contrast were obtained from the vertex to the foramen magnum. MQ: CTBWO_3 CT Radiation dose: Integrated Dose-Length Product (DLP) for this visit = 748 mGy*cm CT Dose Reduction Employed: Automated exposure control(AEC) and iterative recon COMPARISON: CT brain 12/25/2020. RESULT: Post-operative change: None. Acute change: No evidence of an acute infarct or other acute parenchymal process. Hemorrhage: No evidence of acute intracranial hemorrhage. ECASS hemorrhagic transformation score: Not Applicable Mass Lesion / Mass Effect: There is no evidence of an intracranial mass or extraaxial fluid collection. No significant mass effect. Chronic change: None apparent. Parenchyma: There is no significant volume loss. The brain parenchyma is otherwise within normal limits for age. Ventricles: The ventricles are within normal limits of size and configuration for age. Paranasal sinuses and skull base: The visualized paranasal sinuses are grossly clear. The skull base and imaged soft tissues are unremarkable. Localizer images: No significant findings. IMPRESSION: Unix Consultant: ROSA Transcribe Date/Time: Jan 14 2024 6:04A Dictated by : SHI JOSHI MD This examination was interpreted and the report reviewed and electronically signed by: SHI JOSHI MD on Jan 14 2024 6:12AM EST [id number] Normal [facility] Comprehensive metabolic 2000 panelon 01-14-2024 Albumin [Mass/Vol] 4.1 g/dL Normal 3.9-4.9 [facility] Comment on above: Order Comment: Collin whittaker Type: BLOOD SPECIMENOrdering Facility: [facility] Address: [address] [place] [address] Performed By: #### 1 239, , 1987-11 ####[facility] [id number] [place] [address] [place] ALP [Catalytic activity/Vol] 70 U/L Normal 34-123 [facility] Comment on above: Order Comment: Collin whittaker Type: BLOOD SPECIMENOrdering Facility: [facility] Address: [address] [place] [address] Performed By: #### 1 239, , 1987-11 ####[facility] [id number] [address] [place] ALT [Catalytic activity/Vol] 10 U/L Normal 7-38 [facility] Comment on above: Order Comment: Collin whittaker Type: BLOOD SPECIMENOrdering Facility: [facility] Address: [address] [place] [address] Performed By: #### 1 239, 91459-41987-11 ####[facility] [id number] [place] [address] [place] Anion gap [Moles/Vol] 7 mmol/L Low 8-15 [facility] Comment on above: Order Comment: Speci men Type: BLOOD SPECIMENOrdering Facility: [facility] Address: [address] [place] [address] Performed By: #### 1 23-9, , 1987-11 ####[facility] [id number] [place] [address] [place] AST [Catalytic activity/Vol] 17 U/L Normal 13-35 [facility] Comment on above: Order Comment: Speci men Type: BLOOD SPECIMENOrdering Facility: [facility] Address: [address] [place] [address] Performed By: #### 1 9, , 1987-11 ####[facility] [id number] [place] [address] [place] Bilirubin [Mass/Vol] 0.4 mg/dL Normal 0.2-1.3 [facility] Comment on above: Order Comment: Speci men Type: BLOOD SPECIMENOrdering Facility: [facility] Address: [address] [place] [address] Performed By: #### 1 9, , 1987-11 ####[facility] [id number] [place] [address] [place] Calcium [Mass/Vol] 9.3 mg/dL Normal 8.5-10.2 [facility] Comment on above: Order Comment: Speci men Type: BLOOD SPECIMENOrdering Facility: [facility] Address: [address] [place] [address] Performed By: #### 1 239, , 1987-11 ####[facility] [id number] [place] [address] [place] Chloride [Moles/Vol] 100 mmol/L Normal 98-107 [facility] Comment on above: Order Comment: Speci men Type: BLOOD SPECIMENOrdering Facility: [facility] Address: [address] [place] [id number] Performed By: #### 1 9, , 1987-11 ####[facility] [id number] [place] [address] [place] CO2 [Moles/Vol] 29 mmol/L Normal 22-30 [facility] Comment on above: Order Comment: Speci men Type: BLOOD SPECIMENOrdering Facility: [facility] Address: [address] [place] [address] Performed By: #### 1 9, , 1987-11 ####[facility] [id number] [place] [address] [place] Creatinine [Mass/Vol] 0.65 mg/dL Normal 0.58-0.96 [facility] Comment on above: Order Comment: Speci men Type: BLOOD SPECIMENOrdering Facility: [facility] Address: [address] [place] [address] [place] [address] Performed By: #### 1 9, , 1987-11 ####[facility] [id number] [place] [id number] [place] Creatinine and Glomerular filtration rate.predicted panel (S/P/Bld) 98 mL/min/1.73m??? Normal >=60 [facility] Comment on above: Order Comment: Speci men Type: BLOOD SPECIMENOrdering Facility: [facility] Address: [address] [place] [address] Result Comment: Luis mated Glomerular Filtration Rate (eGFR) is calculated using the 2020 CKD-EPI creatinine equation. This equation utilizes serum creatinine, sex, and age as parameters. The creatinine assay has traceable calibration to isotope dilution-mass spectrometry. Refer to KDIGO guidelines for clinical interpretation. In patients with unstable renal function, e.g. those with acute kidney injury, the eGFR may not accurately reflect actual GFR. Performed By: #### 1 239, , 1987-11 ####[facility] [id number] [place] [id number] [place] Glucose [Mass/Vol] 97 mg/dL Normal 74-99 [facility] Comment on above: Order Comment: Collin whittaker Type: BLOOD SPECIMENOrdering Facility: [facility] Address: [address] [place], [place] [id number] Result Comment: The [place] Diabetes Association (ADA) provides guidance for cutoff values for fasting glucose and random glucose. The ADA defines fasting as no caloric intake for at least 8 hours. Fasting plasma glucose results between 100 to 125 [...] Standards of Medical Care in Diabetes 2016, [place] Diabetes Association. Diabetes Care. 2016.39(Suppl 1). Performed By: #### 1 9123-9, , 1987-11 ####[facility] [id number] [place] [address] [place] Potassium [Moles/Vol] 3.3 mmol/L Low 3.7-5.1 [facility] Comment on above: Order Comment: Collin whittaker Type: BLOOD SPECIMENOrdering Facility: [facility] Address: [address] [place] [address] Performed By: #### 1 239, , 1987-11 ####[facility] [id number] [place] [address] [place] Protein [Mass/Vol] 6.6 g/dL Normal 6.3-8.0 [facility] Comment on above: Order Comment: Collin whittaker Type: BLOOD SPECIMENOrdering Facility: [facility] Address: [address] [place], [place] [address] Performed By: #### 1 239, , 1987-11 ####[facility] [id number] [place] [address] [place] Sodium [Moles/Vol] 136 mmol/L Normal 136-144 [facility] Comment on above: Order Comment: Collin men Type: BLOOD SPECIMENOrdering Facility: [facility] Address: [address] [place] [address] Performed By: #### 1 9123-9, , 1987-11 ####[facility] [id number] [place] [address] [facility] Urea nitrogen [Mass/Vol] 16 mg/dL Normal 7- [facility] Comment on above: Order Comment: Speci men Type: BLOOD SPECIMENOrdering Facility: [facility] Address: [address] [place] [address] Performed By: #### 1 9123-9, , 1987-11 ####[facility] [id number] [place] [address] [facility] ED NOTEon 01-14-2024 ED NOTE HNO ID: [id number] Author: MARIA DE JESUS MORGAN RN Service: ? Author Type: Registered Nurse Type: ED Notes Filed: 01/14/2024 07:34 Note Text: Assumed patient care. Provided with warm blanket. Denies any other needs at this time. Normal [facility] ED PROV NOTEon 01-14-2024 ED PROV NOTE HNO ID: [id number] Author: DONNA OWENS MD Service: ? Author Type: Physician Type: ED Provider Notes Filed: 01/14/2024 06:27 Note Text: ED Provider Note Patient Name: Giovanna Nation : 1960 SERVICE DATE: 01/14/24 History Patient presents with: Headache: Been going on for 8 months, already has MRI scheduled, pain increased this morning Patient presenting for evaluation secondary to a headache. Patient reports that over the course of the last 8 months she has been dealing with a consistent headache. Patient states initially she thought it was associated with maybe a sinus infection. Patient states that it is a day and night headache that seems to be get worse when she lays flat. Patient states that its recently been associated with some worsening of pain on the left side of her head. She states that she has a fullness feeling in her left vertex that is worse with palpation. She also endorses some mild numbness of the left side of the face and now she states that she has pain in her left paraspinal neck and left anterior neck. Was not associated with any sort of injuries. No MVAs or chiropractic manipulations. Patient states that she has been taking Tylenol for it this week it has not really been alleviating the symptoms she does not really like taking any other medications so she has not. Patient reports she has an MRI scheduled in 2 weeks or so, but states that the pain was getting bad enough that she is presenting for emergent evaluation. Patient does also states that in that time. She received an RSV vaccination which she had an adverse side effect to where she became very ill and developed a chronic cough. Following that vaccination she reports that she had a unintended weight loss. PAST MEDICAL HISTORY Diagnosis Date Attention deficit disorder without mention of hyperactivity Adult Closed fracture of distal end of left radius 08/21/2016 Excessive or frequent menstruation History of colonoscopy 12/2020 Myalgia and myositis, unspecified Primary hypertension 12/30/2023 PAST SURGICAL HISTORY Procedure Laterality Date APPENDECTOMY APPENDECTOMY HX LIG/TRNSXJ FLP TUBE ABDL/VAG APPR UNI/BI Tubal ligation FAMILY HISTORY Problem Relation Age of Onset Cancer Mother Cervical cancer- treated Psychiatry Sister suicide Ischemic Heart Disease Brother 60 [place], heavy smoker, Etoh Psychiatry Son Opoid dependency Cancer Other Niece (sister's daughter) Social History Tobacco Use Smoking status: Former Packs/day: .5 Types: Cigarettes Smokeless tobacco: Never Vaping Use Vaping Use: Former Substance and Sexual Activity Alcohol use: No Drug use: Never Sexual activity: Not Currently Partners: Male ALLERGIES Allergen Reactions Flovent [Fluticason* Other: See Comments took breath away Penicillins Rash Prednisone Mental Status Change Depression Review of Systems Constitutional: Positive for unexpected weight change. Negative for activity change and fever. HENT: Negative for rhinorrhea and sore throat. Respiratory: Negative for cough and shortness of breath. Cardiovascular: Negative for chest pain. Gastrointestinal: Negative for abdominal pain, diarrhea, nausea and vomiting. Genitourinary: Negative for dysuria. Musculoskeletal: Negative for myalgias. Skin: Negative for rash. Neurological: Positive for headaches. Negative for weakness and numbness. Psychiatric/Behavioral: Negative for self-injury. Physical Exam Vitals [01/14/24 0453] BP Pulse Temp Temp src Resp SpO2 Weight Height 131/84 76 36.7 ?C (98.1 ?F) Oral 18 100 % 47.6 kg (105 lb) 1.6 m (5' 3) Physical Exam Vitals and nursing note reviewed. Constitutional: General: She is not in acute distress. Appearance: She is well-developed and underweight. Comments: Patient is underweight with some temporal wasting HENT: Head: Normocephalic and atraumatic. Comments: Patient complains of pain on palpation of the left side of the scalp and face. As well as the left anterior neck. No evidence of vesicular rash. No focal tenderness over the temporal artery is noted. Nose: Nose normal. Mouth/Throat: Mouth: Mucous membranes are moist. Eyes: Conjunctiva/sclera: Conjunctivae normal. Pupils: Pupils are equal, round, and reactive to light. Funduscopic exam: Right eye: No hemorrhage or papilledema. Left eye: No hemorrhage or papilledema. Neck: Meningeal: Brudzinski's sign and Kernig's sign absent. Comments: Negative Jolt Negative Heel Strike Cardiovascular: Rate and Rhythm: Normal rate and regular rhythm. Pulses: Normal pulses. Radial pulses are 2+ on the right side and 2+ on the left side. Heart sounds: Normal heart sounds. Pulmonary: Effort: Pulmonary effort is normal. No respiratory distress. Breath sounds: Normal breath sounds. Abdominal: General: There is no distension. Palpations: Abdomen is soft. Musculoskeletal: (more content not included)... Normal [facility] HISTORY PHYSICALon HISTORY PHYSICAL HNO ID: [id number] Author: EMILY TATUM MD Service: Hospital Medicine Author Type: Physician Type: H&P Filed: 01/14/2024 12:52 Note Text: DEPARTMENT OF HOSPITAL MEDICINE HISTORY AND PHYSICAL EXAM SERVICE DATE: 01/14/2024 SERVICE TIME: 12:38 PM Primary Care Physician: Michael Flynn MD NIGHT AND WEEKEND COVERAGE: [facility] COVERAGE: Days: [phone], please page attending physician. Nights: [phone], please page [facility] Night coverage pager [phone]. Subjective CHIEF COMPLAINT: Headache HPI: Ms. Giovanna Nation is a 63 y/o F presenting with consistent headaches x8 months; she reports that she experienced a similar sensation in March with concerns for a sinus infection without improvement. She reports her headaches have since continued to progress, worse with lying down a sore neck. The pain is throughout the whole head, with intermittent radiation to the arms. She was evaluated by Neurology, who recommended MRI brain w/ and w/o, MRV, MRI c spine and gabapentin. She will be admitted while awaiting these tests. PAST MEDICAL HISTORY Diagnosis Date Attention deficit disorder without mention of hyperactivity Adult Closed fracture of distal end of left radius 08/21/2016 Excessive or frequent menstruation History of colonoscopy 12/2020 Myalgia and myositis, unspecified Primary hypertension 12/30/2023 PAST SURGICAL HISTORY Procedure Laterality Date APPENDECTOMY APPENDECTOMY HX LIG/TRNSXJ FLP TUBE ABDL/VAG APPR UNI/BI Tubal ligation FAMILY HISTORY Problem Relation Age of Onset Cancer Mother Cervical cancer- treated Psychiatry Sister suicide Ischemic Heart Disease Brother 60 [place], heavy smoker, Etoh Psychiatry Son Opoid dependency Cancer Other Niece (sister's daughter) Social History Tobacco Use Smoking status: Former Packs/day: .5 Types: Cigarettes Smokeless tobacco: Never Vaping Use Vaping Use: Former Substance Use Topics Alcohol use: No Drug use: Never PRIOR TO ADMISSION MEDICATIONS: atomoxetine (STRATTERA) 25 mg capsule, Take 25 mg by mouth every morning., Disp: , Rfl: , 01/13/2024 losartan-hydroCHLOROthi azide (HYZAAR) 50-12.5 mg per tablet, Take 1 tablet by mouth once daily., Disp: 90 tablet, Rfl: 3, 01/13/2024 Cholecalciferol, Vitamin D3, 50 mcg (2,000 unit) cap, Take 1 capsule by mouth once daily., Disp: , Rfl: , 01/13/2024 triamcinolone acetonide (KENALOG) 0.1 % cream, Apply twice daily to pink papules on lower legs as needed, Disp: 28.4 g, Rfl: 2 lidocaine (LIDODERM) 5 %, , Disp: , Rfl: mecobalamin (B12 ACTIVE ORAL), Take by mouth., Disp: , Rfl: ALLERGIES Allergen Reactions Flovent [Fluticason* Other: See Comments took breath away Penicillins Rash Prednisone Mental Status Change Depression REVIEW OF SYSTEM: PAIN ASSESSMENT: Negative for pain, history of chronic pain, or current treatment for a chronic pain condition. GENERAL: No weight loss, malaise or fevers HEENT: Headaches as per HPI, No changes in hearing or vision, no nose bleeds or other nasal problems NECK: +Neck Pain, subjective neck swelling RESPIRATORY: Negative for cough, hemoptysis, wheezing, COPD CARDIOVASCULAR: Negative for chest pain, SOB GI: No nausea, vomiting, or diarrhea : No history of dysuria, frequency or incontinence SKIN: Negative for lesions, rash, and itching NEURO: No history of headaches, syncope, paralysis, seizures or tremors Objective PHYSICAL EXAM: BP 138/79 Pulse 72 Temp (Src) 98.6 (Oral) Resp 20 Ht 5' 3 (1.60m) Wt 102 lb 11.8 oz (46.6kg) SpO2 98% LMP 02/11/2006 BMI 18.20 kg/(m2). O2 Therapy: Room Air Physical Exam Performed: GENERAL: Alert, no distress, cooperative SKIN: Skin color, texture, turgor normal. No rashes or lesions. HEAD/SINUSES: No significant findings EYES: EOMI BACK: Back symmetric, Normal curvature, ROM normal LUNGS: Lungs clear to auscultation, Good diaphragmatic excursion CARDIAC: Normal S1 and S2; no rubs, murmurs, or gallops ABDOMEN: Abdomen soft, non-tender, BS normal, No masses or organomegaly EXTREMITIES: Normal exam of the extremities, occasional areas of hyperpigmentation, small and resolving per patient NEURO: Grossly normal cognition, motor function, and cranial nerves III-XII. TTP of cervical spine Lines, Drains, and Airways Line Duration Peripheral 01/14/24 0530 Left Forearm 20 Gauge <1 day Reviewed lines and needs to be continued: REASONS: Intravenous fluids DATA: Diagnostic tests reviewed for today's visit: Most recent labs Most recent imaging Most recent EKG Assessment/Plan Problem List Headache (POA: Yes) Primary hypertension (POA: Yes) Left facial numbness (POA: Yes) HOSPITAL COURSE: Giovanna Nation is a 63 year old female presenting with a worsening headache over the past 6-8 months; MR imaging pending and will start low dose gabapentin to evaluate. If testing negative, plan d/c to headache clinic as outpateint. He (more content not included)... Normal [facility] MRI BRAIN WO/W IVCONon 01-13 MRI BRAIN WO/W IVCON * * *Final Report* * * DATE OF EXAM: Jan 14 2024 3:12PM [facility] 0295 - MRI BRAIN WO/W IVCON / PROCEDURE REASON: Headache, sudden, severe * * * * Physician Interpretation * * * * EXAMINATION: MRI CERVICAL SPINE WO IVCON, MRI BRAIN WO/W IVCON, MRV BRAIN WO/W IVCON CLINICAL HISTORY: Worsening headache for 6-8 months with left facial numbness. TECHNIQUE: Routine intracranial mass protocol with and without gadolinium. 2-D ffts-lg-zkhpbo intracranial MRV, and coronal gradient echo volume acquisition of the intracranial venous circulation with and without gadolinium with 2D multiplanar and 3D maximum intensity projections calculated on the imaging workstation under physician supervision. Routine cervical spine MR protocol without gadolinium. MQ: MRBWOW_2 MQ: MRCWOW_3 Contrast: 8 mL Dotarem IV COMPARISON: CT brain 01/14/2024 and MRI cervical spine 01/12/2017 RESULT: BRAIN: Acute Change: No apparent acute intracranial process. Hemorrhage: No evidence of prior parenchymal hemorrhage on SWI. Mass Lesion/ Mass Effect: No evidence of an intracranial mass or extra-axial fluid collection. No abnormal parenchymal or leptomeningeal enhancement is noted otherwise following contrast administration. No significant mass effect. Chronic Change: The white matter is within normal limits of signal intensity for age. Parenchyma: No significant volume loss for age. The brain parenchyma is otherwise within normal limits of signal intensity and morphology. Ventricles: Normal caliber and morphology. Skull Base: Hypothalamic and pituitary region are grossly normal. Craniocervical junction is normal. No significant marrow replacement process. Vasculature: Major intracranial arterial structures show typical flow void, suggesting patency by spin echo criteria. Other: The paranasal sinuses are clear. Trace left mastoid effusion. MR VENOGRAM: Superior sagittal sinus, straight sinus, vein of saul, bilateral internal cerebral veins, bilateral basal veins of arvin, bilateral transverse sinuses, bilateral sigmoid sinuses, and proximal internal jugular veins are patent and within normal limits of caliber and configuration. No evidence of intraluminal filling defect or focal significant stenosis on the 2-D xwgw-vc-iishfk and gadolinium-enhanced acquisitions. Bilateral cavernous sinuses are symmetric. CERVICAL: Counting reference: Craniocervical junction. Alignment: Alignment is anatomic. Relative narrowing of the canal and foramina given developmentally short pedicles. Craniocervical junction: Craniocervical junction is normal. Cord: The visualized cord is within normal limits of signal intensity but is compressed as outlined below. Bone marrow signal/fracture: No apparent pathologic marrow infiltration. No findings to suggest sequelae of acute or chronic fracture. Cervical soft tissues: The paraspinal soft tissues are within normal limits. C2-C3: Canal and foramina are patent. C3-C4: Mild disc height loss. Small disc osteophyte complex with slight impingement of the adjacent spinal cord in view of the developmentally small canal. Uncovertebral resulting moderate left foraminal stenosis. C4-C5: Mild disc height loss. Mild disc osteophyte complex causing slight impingement of the cord in view of the developmentally small canal. Uncinate and facet hypertrophy with moderate-severe left and moderate right foraminal stenosis. C5-C6: Mild disc height loss. Disc osteophyte complex abutting the ventral surface of the cord without significant cord compression. Facet and uncinate process hypertrophy causes moderate left and mild right foraminal stenosis. C6-C7: Mild disc height loss. Disc osteophyte complex which is eccentric to the left of midline and also abuts the ventral surface of the cord without significant cord compression.. Uncovertebral joint hypertrophy with mild-moderate left and mild right foraminal stenosis C7-T1: Canal and foramina are patent. IMPRESSION: Normal MRI brain. No acute intracranial abnormality. Normal intracranial MRV. No evidence of intracranial venous thrombosis or focal significant stenosis. Developmental cervical canal stenosis with mild superimposed degenerative changes causing slight impingement of the cord and multilevel bony foraminal narrowing as detailed above. Cervical Anatomic Variant: None. Assume 7 cervical vertebrae with counting from the craniocervical junction. Unix Consultant: ROSA Transcribe Date/Time: Jan 14 2024 3:29P Dictated by : RHONA BEGUM DO This examination was interpreted and the report reviewed and electronically signed by: RAJEEV JACK MD on Jan 14 2024 4:28PM EST [id number] [facility] MRI CERVICAL SPINE WO IVCONo n 01-14-2024 MRI CERVICAL SPINE WO IVCON * * *Final Report* * * DATE OF EXAM: Jan 14 2024 3:12PM [facility] 0297 - MRI CERVICAL SPINE WO IVCON / PROCEDURE REASON: Cervical radiculopathy, no red flags * * * * Physician Interpretation * * * * EXAMINATION: MRI CERVICAL SPINE WO IVCON, MRI BRAIN WO/W IVCON, MRV BRAIN WO/W IVCON CLINICAL HISTORY: Worsening headache for 6-8 months with left facial numbness. TECHNIQUE: Routine intracranial mass protocol with and without gadolinium. 2-D lkos-xr-kddlxx intracranial MRV, and coronal gradient echo volume acquisition of the intracranial venous circulation with and without gadolinium with 2D multiplanar and 3D maximum intensity projections calculated on the imaging workstation under physician supervision. Routine cervical spine MR protocol without gadolinium. MQ: MRBWOW_2 MQ: MRCWOW_3 Contrast: 8 mL Dotarem IV COMPARISON: CT brain 01/14/2024 and MRI cervical spine 01/12/2017 RESULT: BRAIN: Acute Change: No apparent acute intracranial process. Hemorrhage: No evidence of prior parenchymal hemorrhage on SWI. Mass Lesion/ Mass Effect: No evidence of an intracranial mass or extra-axial fluid collection. No abnormal parenchymal or leptomeningeal enhancement is noted otherwise following contrast administration. No significant mass effect. Chronic Change: The white matter is within normal limits of signal intensity for age. Parenchyma: No significant volume loss for age. The brain parenchyma is otherwise within normal limits of signal intensity and morphology. Ventricles: Normal caliber and morphology. Skull Base: Hypothalamic and pituitary region are grossly normal. Craniocervical junction is normal. No significant marrow replacement process. Vasculature: Major intracranial arterial structures show typical flow void, suggesting patency by spin echo criteria. Other: The paranasal sinuses are clear. Trace left mastoid effusion. MR VENOGRAM: Superior sagittal sinus, straight sinus, vein of saul, bilateral internal cerebral veins, bilateral basal veins of arvin, bilateral transverse sinuses, bilateral sigmoid sinuses, and proximal internal jugular veins are patent and within normal limits of caliber and configuration. No evidence of intraluminal filling defect or focal significant stenosis on the 2-D hmzc-jx-gshoot and gadolinium-enhanced acquisitions. Bilateral cavernous sinuses are symmetric. CERVICAL: Counting reference: Craniocervical junction. Alignment: Alignment is anatomic. Relative narrowing of the canal and foramina given developmentally short pedicles. Craniocervical junction: Craniocervical junction is normal. Cord: The visualized cord is within normal limits of signal intensity but is compressed as outlined below. Bone marrow signal/fracture: No apparent pathologic marrow infiltration. No findings to suggest sequelae of acute or chronic fracture. Cervical soft tissues: The paraspinal soft tissues are within normal limits. C2-C3: Canal and foramina are patent. C3-C4: Mild disc height loss. Small disc osteophyte complex with slight impingement of the adjacent spinal cord in view of the developmentally small canal. Uncovertebral resulting moderate left foraminal stenosis. C4-C5: Mild disc height loss. Mild disc osteophyte complex causing slight impingement of the cord in view of the developmentally small canal. Uncinate and facet hypertrophy with moderate-severe left and moderate right foraminal stenosis. C5-C6: Mild disc height loss. Disc osteophyte complex abutting the ventral surface of the cord without significant cord compression. Facet and uncinate process hypertrophy causes moderate left and mild right foraminal stenosis. C6-C7: Mild disc height loss. Disc osteophyte complex which is eccentric to the left of midline and also abuts the ventral surface of the cord without significant cord compression.. Uncovertebral joint hypertrophy with mild-moderate left and mild right foraminal stenosis C7-T1: Canal and foramina are patent. IMPRESSION: Normal MRI brain. No acute intracranial abnormality. Normal intracranial MRV. No evidence of intracranial venous thrombosis or focal significant stenosis. Developmental cervical canal stenosis with mild superimposed degenerative changes causing slight impingement of the cord and multilevel bony foraminal narrowing as detailed above. Cervical Anatomic Variant: None. Assume 7 cervical vertebrae with counting from the craniocervical junction. Unix Consultant: ROSA Transcribe Date/Time: Jan 14 2024 3:29P Dictated by : RHONA BEGUM, This examination was interpreted and the report reviewed and electronically signed by: RAJEEV JACK MD on Jan 14 2024 4:28PM EST [id number] [facility] MRV BRAIN WO/W IVCONon 01-13 MRV BRAIN WO/W IVCON * * *Final Report* * * DATE OF EXAM: Jan 14 2024 3:12PM [facility] 0336 - MRV BRAIN WO/W IVCON / PROCEDURE REASON: Dural venous sinus thrombosis suspected * * * * Physician Interpretation * * * * EXAMINATION: MRI CERVICAL SPINE WO IVCON, MRI BRAIN WO/W IVCON, MRV BRAIN WO/W IVCON CLINICAL HISTORY: Worsening headache for 6-8 months with left facial numbness. TECHNIQUE: Routine intracranial mass protocol with and without gadolinium. 2-D swaa-if-mbbgnp intracranial MRV, and coronal gradient echo volume acquisition of the intracranial venous circulation with and without gadolinium with 2D multiplanar and 3D maximum intensity projections calculated on the imaging workstation under physician supervision. Routine cervical spine MR protocol without gadolinium. MQ: MRBWOW_2 MQ: MRCWOW_3 Contrast: 8 mL Dotarem IV COMPARISON: CT brain 01/14/2024 and MRI cervical spine 01/12/2017 RESULT: BRAIN: Acute Change: No apparent acute intracranial process. Hemorrhage: No evidence of prior parenchymal hemorrhage on SWI. Mass Lesion/ Mass Effect: No evidence of an intracranial mass or extra-axial fluid collection. No abnormal parenchymal or leptomeningeal enhancement is noted otherwise following contrast administration. No significant mass effect. Chronic Change: The white matter is within normal limits of signal intensity for age. Parenchyma: No significant volume loss for age. The brain parenchyma is otherwise within normal limits of signal intensity and morphology. Ventricles: Normal caliber and morphology. Skull Base: Hypothalamic and pituitary region are grossly normal. Craniocervical junction is normal. No significant marrow replacement process. Vasculature: Major intracranial arterial structures show typical flow void, suggesting patency by spin echo criteria. Other: The paranasal sinuses are clear. Trace left mastoid effusion. MR VENOGRAM: Superior sagittal sinus, straight sinus, vein of saul, bilateral internal cerebral veins, bilateral basal veins of arvin, bilateral transverse sinuses, bilateral sigmoid sinuses, and proximal internal jugular veins are patent and within normal limits of caliber and configuration. No evidence of intraluminal filling defect or focal significant stenosis on the 2-D mtlf-px-xegsvl and gadolinium-enhanced acquisitions. Bilateral cavernous sinuses are symmetric. CERVICAL: Counting reference: Craniocervical junction. Alignment: Alignment is anatomic. Relative narrowing of the canal and foramina given developmentally short pedicles. Craniocervical junction: Craniocervical junction is normal. Cord: The visualized cord is within normal limits of signal intensity but is compressed as outlined below. Bone marrow signal/fracture: No apparent pathologic marrow infiltration. No findings to suggest sequelae of acute or chronic fracture. Cervical soft tissues: The paraspinal soft tissues are within normal limits. C2-C3: Canal and foramina are patent. C3-C4: Mild disc height loss. Small disc osteophyte complex with slight impingement of the adjacent spinal cord in view of the developmentally small canal. Uncovertebral resulting moderate left foraminal stenosis. C4-C5: Mild disc height loss. Mild disc osteophyte complex causing slight impingement of the cord in view of the developmentally small canal. Uncinate and facet hypertrophy with moderate-severe left and moderate right foraminal stenosis. C5-C6: Mild disc height loss. Disc osteophyte complex abutting the ventral surface of the cord without significant cord compression. Facet and uncinate process hypertrophy causes moderate left and mild right foraminal stenosis. C6-C7: Mild disc height loss. Disc osteophyte complex which is eccentric to the left of midline and also abuts the ventral surface of the cord without significant cord compression.. Uncovertebral joint hypertrophy with mild-moderate left and mild right foraminal stenosis C7-T1: Canal and foramina are patent. IMPRESSION: Normal MRI brain. No acute intracranial abnormality. Normal intracranial MRV. No evidence of intracranial venous thrombosis or focal significant stenosis. Developmental cervical canal stenosis with mild superimposed degenerative changes causing slight impingement of the cord and multilevel bony foraminal narrowing as detailed above. Cervical Anatomic Variant: None. Assume 7 cervical vertebrae with counting from the craniocervical junction. Unix Consultant: ROSA Transcribe Date/Time: Jan 14 2024 3:29P Dictated by : RHONA BEGUM DO This examination was interpreted and the report reviewed and electronically signed by: RAJEEV JACK MD on Jan 14 2024 4:28PM EST [id number] Normal [facility] Magnesium SerPl-mCncon 01-13 Magnesium [Mass/Vol] 1.9 mg/dL Normal 1.7-2.3 [facility] Comment on above: Order Comment: Collin whittaker Type: BLOOD SPECIMENOrdering Facility: [facility] Address: [address] [place] [address] Performed By: #### 1 9123-9, 17572-2, 1987-11 ####[facility]ORY[facility]IA [id number] [place] [address] [place] Cobalamin (Vitamin B12) [Mas s/Vol]on 12-28-2023 Interpretation and review of laboratory results Abnormal [facility] HEAVY METALS SCRN BLon 12-27 ARSENIC, BLOOD <10.0 Normal <=12.0 [facility] Comment on above: Order Comment: Collin whittaker Type: BLOOD SPECIMEN Ordering Facility: [facility] Address: [address] [place] [address] Result Comment: INTE RPRETIVE INFORMATION: Arsenic, Blood Elevated results may be due to skin or collection-related contamination, including the use of a noncertified metal-free collection/transport tube. If contamination concerns exist due to elevated levels of blood arsenic, confirmation with a second specimen collected in a certified metal-free tube is recommended. Potentially toxic ranges for blood arsenic: Greater than or equal to 600 ug/L. Blood arsenic is for the detection of recent exposure poisoning only. Blood arsenic levels in healthy subjects vary considerably with exposure to arsenic in the diet and the environment. A 24-hour urine arsenic is useful for the detection of chronic exposure. This test was developed and its performance characteristics determined by [facility]. It has not been cleared or approved by the [place] Food and Drug Administration. This test was performed in a CLIA certified laboratory and is intended for clinical purposes. Performed By: #### 5 7021-8 #### [facility] CLIA [id number] [address] [place] [address] [place] LEAD <2.0 Normal <=4.9 [facility] Comment on above: Order Comment: Speci remedios Type: BLOOD SPECIMEN Ordering Facility: [facility] Address: [address] [place], [place] [id number] Result Comment: INTE RPRETIVE INFORMATION: Lead, Blood (Venous) Analysis performed by Inductively Coupled Plasma-Mass Spectrometry (ICP-MS). Elevated results may be due to skin or collection-related contamination, including the use of a noncertified lead-free tube. If contamination concerns exist due to elevated levels of blood lead, confirmation with a second specimen collected in a certified lead-free tube is recommended. Information sources for blood lead reference intervals and interpretive comments include the CDC's Childhood Lead Poisoning Prevention: Recommended Actions Based on Blood Lead Level and the Adult Blood Lead Epidemiology and Surveillance: Reference Blood Lead Levels (BLLs) for Adults in the [place] Thresholds and time intervals for retesting, medical evaluation, and response vary by state and regulatory body. Contact your State Department of Health and/or applicable regulatory agency for specific guidance on medical management recommendations. This test was developed and its performance characteristics determined by [facility]. It has not been cleared or approved by the U.S. Food and Drug Administration. This test was performed in a CLIA-certified laboratory and is intended for clinical purposes. Group Concentration Comment Children 3.5-19.9 ug/dL Children under the age of 6 years are the most vulnerable to the harmful effects of lead exposure. Environmental investigation and exposure history to identify potential sources of lead. Biological and nutritional monitoring are recommended. Follow-up blood lead monitoring is recommended. 20-44.9 ug/dL Lead hazard reduction and prompt medical evaluation are recommended. Contact a Pediatric Environmental Health Specialty Unit or poison control center for guidance. Greater than Critical. Immediate medical 44.9 ug/dL evaluation, including detailed neurological exam is recommended. Consider chelation therapy when symptoms of lead toxicity are present. Contact a Pediatric Environmental Health Specialty Unit or poison control center for assistance. Adult 5-19.9 ug/dL Medical removal is recommended for women or those who are trying or may become . Adverse health effects are possible. Reduced lead exposure and increased blood lead monitoring are recommended. 20-69.9 ug/dL Adverse health effects are indicated. Medical removal from lead exposure is required by OSHA if blood lead level exceeds 50 ug/dL. Prompt medical evaluation is recommended. Greater than Critical. Immediate medical 69.9 ug/dL evaluation is recommended. Consider chelation therapy when symptoms of lead toxicity are present. Performed By: #### 5 7021-8 #### [facility] CLIA [id number] [address] [place] [address] [place] MERCURY <2.5 Normal <=10.0 [facility] Comment on above: Order Comment: Speci remedios Type: BLOOD SPECIMEN Ordering Facility: [facility] Address: [address] [place] [id number] Result Comment: INTE RPRETIVE INFORMATION: Mercury, Blood Elevated results may be due to skin or collection-related contamination, including the use of a noncertified metal-free collection/transport tube. If contamination concerns exist due to elevated levels of blood mercury, confirmation with a second specimen collected in a certified metal-free tube is recommended. Blood mercury levels predominantly reflect recent exposure and are most useful in the diagnosis of acute poisoning as blood mercury concentrations rise sharply and fall quickly over several days after ingestion. Blood concentrations in unexposed individuals rarely exceed 20 ug/L. The provided reference interval relates to inorganic mercury concentrations. Dietary and non-occupational exposure to organic mercury forms may contribute to an elevated total mercury result. Clinical presentation after toxic exposure to organic mercury may include dysarthria, ataxia and constricted vision godinez with mercury blood concentrations from 20 to 50 ug/L. This test was developed and its performance characteristics determined by [facility]. It has not been cleared or approved by the [place] Food and Drug Administration. This test was performed in a CLIA certified laboratory and is intended for clinical purposes. Performed By: [facility] [address] [place] [id number] [employer] Resort: Daniel Cortés MD, PhD CLIA Number: [id number] Performed By: #### 5 7021-8 #### [facility] CLIA [id number] [address] [place] VITAMIN B12on 12-28-2023 Cobalamin (Vitamin B12) [Mass/Vol] pg/mL High 232 - 1245 pg/mL [facility] Vit B12 SerPl-mCncon 024 Cobalamin (Vitamin B12) [Mass/Vol] pg/mL High 232-1245 [facility] Comment on above: Order Comment: Speci men Type: BLOOD SPECIMEN Ordering Facility: [facility] Address: [address] [place] [address] Performed By: #### 5 7021-8 #### [facility] CLIA [id number] [address] [place] [address] [place] XR CHEST 2V FRONTAL/LATon [facility] COVID NAAT, UPPER RESPIRATOR Y, ROUTINEon 05-22-2023 SARS-CoV-2 (COVID-19) RNA BELINDA+probe Ql (Resp) Not detected See comment [facility] ROUTINE FLU A/B + RSVon FLUAV RNA BELINDA+probe Ql (Unsp spec) Not detected Not Detected [facility] FLUBV RNA BELINDA+probe Ql (Unsp spec) Not detected Not Detected [facility] RSV A RNA BELINDA+probe Ql (Unsp spec) Not detected Not Detected [facility] C-REACTIVE PROTEIN (CRP)on 07-21-2022 CRP [Mass/Vol] 4.6 mg/dL High <0.9 mg/dL [facility] CBC W Auto Differential pane l (Bld)on 05-21-2023 Basophils (Bld) [#/Vol] 0.05 10*3/uL <0.11 k/uL [facility] Basophils/100 WBC (Bld) 0.5 % [facility] Differential cell count method Nom (Bld) Auto [facility] Eosinophils (Bld) [#/Vol] 0.12 10*3/uL <0.46 k/uL [facility] Eosinophils/100 WBC (Bld) 1.2 % [facility] Erythrocyte distribution width (RBC) [Ratio] 10.7 % Low 11.5 - 15.0 % [facility] Hematocrit (Bld) [Volume fraction] 39.0 % 36.0 - 46.0 % [facility] Hemoglobin (Bld) [Mass/Vol] 13.2 g/dL 11.5 - 15.5 g/dL [facility] Immature granulocytes (Bld) [#/Vol] 0.06 10*3/uL <0.10 k/uL [facility] Immature granulocytes/100 WBC (Bld) 0.6 % [facility] Lymphocytes (Bld) [#/Vol] 2.38 10*3/uL 1.00 - 4.00 k/uL [facility] Lymphocytes/100 WBC (Bld) 24.7 % [facility] MCH (RBC) [Entitic mass] 30.5 pg 26.0 - 34.0 pg [facility] MCHC (RBC) [Mass/Vol] 33.8 g/dL 30.5 - 36.0 g/dL [facility] MCV (RBC) [Entitic vol] 90.1 fL 80.0 - 100.0 fL [facility] Monocytes (Bld) [#/Vol] 0.85 10*3/uL <0.87 k/uL [facility] Monocytes/100 WBC (Bld) 8.8 % [facility] Neutrophils (Bld) [#/Vol] 6.16 10*3/uL 1.45 - 7.50 k/uL [facility] Neutrophils/100 WBC (Bld) 64.2 % [facility] Nucleated RBC (Bld) [#/Vol] <0.01 k/uL [facility] Nucleated RBC/100 WBC (Bld) [Ratio] 0.0 /100 WBC [facility] Platelet mean volume (Bld) [Entitic vol] 9.2 fL 9.0 - 12.7 fL [facility] Platelets (Bld) [#/Vol] 462 10*3/uL High 150 - 400 k/uL [facility] RBC (Bld) [#/Vol] 4.33 10*6/uL 3.90 - 5.2 0 m/uL [facility] WBC (Bld) [#/Vol] 9.62 10*3/uL 3.70 - 11. 00 k/uL [facility] Comprehensive metabolic 2000 panelon 05-21-2023 Albumin [Mass/Vol] 3.8 g/dL Low 3.9 - 4.9 g/dL [facility] ALP [Catalytic activity/Vol] 84 U/L 34 - 123 U/L [facility] ALT [Catalytic activity/Vol] 16 U/L 7 - 38 U/L [facility] Anion gap [Moles/Vol] 14 mmol/L 9 - 18 mmol/L [facility] AST [Catalytic activity/Vol] 23 U/L 13 - 35 U/L [facility] Bilirubin [Mass/Vol] 0.3 mg/dL 0.2 - 1.3 mg/dL [facility] Calcium [Mass/Vol] 9.5 mg/dL 8.5 - 10. 2 mg/dL [facility] Chloride [Moles/Vol] 97 mmol/L 97 - 105 mmol/L [facility] CO2 [Moles/Vol] 27 mmol/L 22 - 30 mmol/L [facility] Creatinine [Mass/Vol] 0.68 mg/dL 0.58 - 0.96 mg/dL [facility] Estimated Glomerular Filtration Rate 98 mL/min/1.73m >=60 mL/min/1.73m [facility] Glucose [Mass/Vol] 87 mg/dL 74 - 99 mg/dL [facility] Potassium [Moles/Vol] 3.9 mmol/L 3.7 - 5.1 mmol/L [facility] Protein [Mass/Vol] 7.3 g/dL 6.3 - 8.0 g/dL [facility] Sodium [Moles/Vol] 138 mmol/L 136 - 144 mmol/L [facility] Urea nitrogen [Mass/Vol] 9 mg/dL 7 - 21 mg/dL [facility] ESR Westergren method (Bld) [Velocity]on 05-21-2023 ESR (Bld) [Velocity] 78 mm/h High 0 - 20 mm/hr [facility] Renal function 2000 panelon 05-07-2023 Albumin [Mass/Vol] 4.4 g/dL 3.9 - 4.9 g/dL [facility] Anion gap [Moles/Vol] 13 mmol/L 9 - 18 mmol/L [facility] Calcium [Mass/Vol] 9.6 mg/dL 8.5 - 10. 2 mg/dL [facility] Chloride [Moles/Vol] 101 mmol/L 97 - 105 mmol/L [facility] CO2 [Moles/Vol] 24 mmol/L 22 - 30 mmol/L [facility] Creatinine [Mass/Vol] 0.69 mg/dL 0.58 - 0.96 mg/dL [facility] Estimated Glomerular Filtration Rate 98 mL/min/1.73m >=60 mL/min/1.73m [facility] Glucose [Mass/Vol] 94 mg/dL 74 - 99 mg/dL [facility] Phosphate [Mass/Vol] 3.3 mg/dL 2.7 - 4.8 mg/dL [facility] Potassium [Moles/Vol] 5.3 mmol/L High 3.7 - 5.1 mmol/L [facility] Sodium [Moles/Vol] 138 mmol/L 136 - 144 mmol/L [facility] Urea nitrogen [Mass/Vol] 9 mg/dL 7 - 21 mg/dL [facility] TSH BLDon 05-07-2023 TSH Qn 1.280 m[IU]/L 0.270 - 4.200 mIU/L [facility] C-REACTIVE PROTEIN (CRP)on 08-13-2021 CRP [Mass/Vol] <0.9 mg/dL [facility] CBC W Auto Differential pane l (Bld)on 06-13-2022 Basophils (Bld) [#/Vol] 0.04 10*3/uL <0.11 k/uL [facility] Basophils/100 WBC (Bld) 0.8 % [facility] Differential cell count method Nom (Bld) Auto [facility] Eosinophils (Bld) [#/Vol] 0.07 10*3/uL <0.46 k/uL [facility] Eosinophils/100 WBC (Bld) 1.3 % [facility] Erythrocyte distribution width (RBC) [Ratio] 11.6 % 11.5 - 15.0 % [facility] Hematocrit (Bld) [Volume fraction] 41.9 % 36.0 - 46.0 % [facility] Hemoglobin (Bld) [Mass/Vol] 13.6 g/dL 11.5 - 15.5 g/dL [facility] Immature granulocytes (Bld) [#/Vol] <0.10 k/uL [facility] Immature granulocytes/100 WBC (Bld) 0.2 % [facility] Lymphocytes (Bld) [#/Vol] 1.78 10*3/uL 1.00 - 4.00 k/uL [facility] Lymphocytes/100 WBC (Bld) 33.6 % [facility] MCH (RBC) [Entitic mass] 30.3 pg 26.0 - 34.0 pg [facility] MCHC (RBC) [Mass/Vol] 32.5 g/dL 30.5 - 36.0 g/dL [facility] MCV (RBC) [Entitic vol] 93.3 fL 80.0 - 100.0 fL [facility] Monocytes (Bld) [#/Vol] 0.46 10*3/uL <0.87 k/uL [facility] Monocytes/100 WBC (Bld) 8.7 % [facility] Neutrophils (Bld) [#/Vol] 2.94 10*3/uL 1.45 - 7.50 k/uL [facility] Neutrophils/100 WBC (Bld) 55.4 % [facility] Nucleated RBC (Bld) [#/Vol] <0.01 k/uL [facility] Nucleated RBC/100 WBC (Bld) [Ratio] 0.0 /100 WBC [facility] Platelet mean volume (Bld) [Entitic vol] 9.8 fL 9.0 - 12.7 fL [facility] Platelets (Bld) [#/Vol] 282 10*3/uL 150 - 400 k/uL [facility] RBC (Bld) [#/Vol] 4.49 10*6/uL 3.90 - 5.2 0 m/uL [facility] WBC (Bld) [#/Vol] 5.30 10*3/uL 3.70 - 11. 00 k/uL [facility] Comprehensive metabolic 2000 panelon 06-13-2022 Albumin [Mass/Vol] 4.3 g/dL 3.9 - 4.9 g/dL [facility] ALP [Catalytic activity/Vol] 76 U/L 34 - 123 U/L [facility] ALT [Catalytic activity/Vol] 15 U/L 7 - 38 U/L [facility] Anion gap [Moles/Vol] 11 mmol/L 9 - 18 mmol/L [facility] AST [Catalytic activity/Vol] 25 U/L 13 - 35 U/L [facility] Bilirubin [Mass/Vol] 0.4 mg/dL 0.2 - 1.3 mg/dL [facility] Calcium [Mass/Vol] 9.8 mg/dL 8.5 - 10. 2 mg/dL [facility] Chloride [Moles/Vol] 106 mmol/L High 97 - 105 mmol/L [facility] CO2 [Moles/Vol] 25 mmol/L 22 - 30 mmol/L [facility] Creatinine [Mass/Vol] 0.67 mg/dL 0.58 - 0.96 mg/dL [facility] Estimated Glomerular Filtration Rate 99 mL/min/1.73m >=60 mL/min/1.73m [facility] Glucose [Mass/Vol] 88 mg/dL 74 - 99 mg/dL [facility] Potassium [Moles/Vol] 5.4 mmol/L High 3.7 - 5.1 mmol/L [facility] Protein [Mass/Vol] 6.6 g/dL 6.3 - 8.0 g/dL [facility] Sodium [Moles/Vol] 142 mmol/L 136 - 144 mmol/L [facility] Urea nitrogen [Mass/Vol] 13 mg/dL 7 - 21 mg/dL [facility] ESR Westergren method (Bld) [Velocity]on 06-13-2022 ESR (Bld) [Velocity] 5 mm/h 0 - 20 mm/hr [facility] Lipid 1996 panelon 2 Cholesterol [Mass/Vol] 165 mg/dL <200 mg/dL [facility] Cholesterol in HDL [Mass/Vol] 51 mg/dL >39 mg/dL [facility] Cholesterol in LDL [Mass/Vol] 100 mg/dL High <100 mg/dL [facility] Cholesterol in LDL/Cholesterol in HDL [Mass ratio] 1.96 {ratio} <2.54 [facility] Cholesterol in VLDL [Mass/Vol] 14 mg/dL <30 mg/dL [facility] Cholesterol non HDL [Mass/Vol] 114 mg/dL <130 mg/dL [facility] Cholesterol.total/ Cholesterol in HDL [Mass ratio] 3.24 {ratio} <5.10 [facility] Fasting Time 12 hrs [facility] Triglyceride [Mass/Vol] 69 mg/dL <150 mg/dL [facility] VITAMIN D 25 HYDROXYon 06-13 25-hydroxyvitamin D3 [Mass/Vol] 44.8 ng/mL 31.0 - 80.0 ng/mL [facility] XR WRIST INJURY 4V PA/LAT/OB L/SCAPH RIGHTon 01-11-2022 [facility] XR Wrist - right 4 Viewson 0 01-11-2022 IMPRESSION: Findings are suggestive of degenerative changes in the first carpometacarpal joint. No acute fractures demonstrated. Unix Consultant: PSCB Transcribe Date/Time: Jan 11 2022 10:47A Dictated by : SUMMER ESTRELLA MD This examination was interpreted and the report reviewed and electronically signed by: SUMMER ESTRELLA MD on Jan 11 2022 10:53AM EST ZZZ_DO_NOT_USE _DIVISION OF RADIOLOGY * * *Final Report* * * DATE OF EXAM: Jan 11 2022 10:44AM WOX [id number] - XR WRIST 4V PA/LAT/OBL/SCAPH RT / PROCEDURE REASON: Acute wrist pain, right * * * * Physician Interpretation * * * * EXAM TITLE: XR WRIST 4V PA/LAT/OBL/SCAPH RT EXAM DATE/TIME: 01/11/2022 10:44 AM COMPARISON: None. CLINICAL INDICATION/HISTORY: Fall. TECHNIQUE: PA, lateral, oblique and scaphoid views of right wrist are presented. FINDINGS: No acute fractures or subluxations are noted. There is mild first carpometacarpal joint space narrowing, with associated osteophyte formation and subchondral bony sclerosis. Tiny cystic components seen in a few carpal bones, nonspecific. The mineralization of the bones is normal. There is no significant soft tissue swelling. ZZZ_DO_NOT_USE _DIVISION OF RADIOLOGY Provider, Ana Frank Torres - 01/11/2022 * * *Final Report* * * DATE OF EXAM: Jan 11 2022 10:44AM WOX [id number] - XR WRIST 4V PA/LAT/OBL/SCAPH RT / PROCEDURE REASON: Acute wrist pain, right * * * * Physician Interpretation * * * * EXAM TITLE: XR WRIST 4V PA/LAT/OBL/SCAPH RT EXAM DATE/TIME: 01/11/2022 10:44 AM COMPARISON: None. CLINICAL INDICATION/HISTORY: Fall. TECHNIQUE: PA, lateral, oblique and scaphoid views of right wrist are presented. FINDINGS: No acute fractures or subluxations are noted. There is mild first carpometacarpal joint space narrowing, with associated osteophyte formation and subchondral bony sclerosis. Tiny cystic components seen in a few carpal bones, nonspecific. The mineralization of the bones is normal. There is no significant soft tissue swelling. IMPRESSION IMPRESSION: Findings are suggestive of degenerative changes in the first carpometacarpal joint. No acute fractures demonstrated. Unix Consultant: PSCB Transcribe Date/Time: Jan 11 2022 10:47A Dictated by : SUMMER ESTRELLA MD This examination was interpreted and the report reviewed and electronically signed by: SUMMER ESTRELLA MD on Jan 11 2022 10:53AM EST [facility] Radiology Study observation (narrative) [facility] XR Wrist - right 4 ViewsOrde red By: Ccf Provider on 01-11-2022 [facility] CASE MANAGEMon 05-10-2021 CASE MANAGEM HNO ID: [id number] Author: BILL Arevalo Service: ? Author Type: Youth Court Judge Type: Care Mgt Progress Note Filed: 05/10/2021 1:33 PM Note Text: BEHAVIORAL HEALTH SOCIAL WORK DISCHARGE NOTE SERVICE DATE: 05/10/2021 SERVICE TIME: 1:31 PM Discharge Information Row Name Admission (Current) from 05/07/[address] Psychiatry Follow-Up Appointment Provider Name Dr. Travis Address [address], [facility], [place] [address] Appointment Date ? Requested to coordinate on own Appointment Time Requested to coordinate on own Counselor Follow-Up Appointment Counselor Name La Nena Quiroz [facility] Address / Phone # [phone], [place] [address] / Appointment Date 05/25/21 Appointment Time 12:30 pm Additional Instructions This will be a virtual appointment via [employer] Discharge Disposition Discharge Disposition Home with Family/Friend Additional Discharge Information Additional Discharge Resources In a mental health emergency please call Crisis: [phone] Additional Discharge Follow Up Information For additional support go to [email or web address] AND go to [email or web address] 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 Yes. A list of appropriate referrals presented to/discussed with Patient on 05/10/21 at 1:31 pm [facility]-owned/affiliated facilities and agencies have been identified Patient/Recreation Engineer Given/Explained Medicare Discharge Notice (IM letter): Not Applicable TRANSPORTATION ARRANGEMENTS: Taxi Cab Voucher, pt parked car at [facility] Main [place] PRESCRIPTIONS FILLED PRIOR TO DISCHARGE: Yes, faxed to outside pharmacy: [facility] in [facility] ADDITIONAL NOTES: Per treating provider pt to be discharged home today. SW engaged with pt individually in consult room. Pt was discharged focused during engagement. Pt continues to deny wanting this worker to contact her outpatient psychiatrist. SW reviewed pt's continuation of care, pt in agreement with plan as outlined above. Pt provided crisis line and peer support resources. SW to continue to follow and assist with further needs. SIGNATURE: BILL Arevalo PATIENT NAME: Giovanna Nation DATE: May 10, 2021 TIME: 1:[address] [id number] Author: Landon Villatoro MD Service: Psychiatry Author Type: Physician Type: Discharge Summary Filed: 07/05/2021 3:55 PM Note Text: DISCHARGE SUMMARY BEHAVIORAL HEALTH PATIENT NAME: Giovanna Nation ADMISSION DATE: 05/07/2021 DISCHARGE DATE: 05/10/2021 ATTENDING PHYSICIAN: Tianna Sherwood APRN.DEVELOPMENT CONSULTANT Code Status: Not on file Highest Readmission Risk Score: 9 The 30 day readmissions risk score is derived from an internally validated risk model which evaluates patient level characteristics, utilization history, medication orders and lab results up until the day of discharge. Patients with a score of 40 or above are considered highest risk for readmission. Specific patient level drivers will be listed at the bottom of the summary. REASON FOR HOSPITALIZATION: Inability to care for self DISCHARGE DIAGNOSIS: 1) MDD OPERATIONS DURING HOSPITALIZATION: None PROCEDURES DURING HOSPITALIZATION: No procedures performed HOSPITAL COURSE: Patient admitted to the hospital for reported suicidal ideation. However, it was determined that there was no genuine suicidal ideation, and the patient improved apace with minimal doxepin (which was all the patient was willing to take). She was discharged on 05/10/21 in stable condition. CONSULTING TEAMS DURING HOSPITALIZATION: Internal Medicine: - Treatment Team: Attending Provider: Tianna Sherwood APRN.CNP PATIENT CONDITION AT DISCHARGE: Stable DISCHARGE DISPOSITION: Home with Self Care COMPLICATIONS: None At this time the patient has maximized her benefit from hospitalization.. The patient denies suicidal or homicidal ideation, intent or plan and is safe for discharge. The patient voices a readiness to transition back to her home setting and has agreed to our follow-up recommendations including medication compliance. SUBJECTIVE: Seen in the exam room with team. She is clear and cogent. She says she is feeling better overall and reports today that she never had any genuine suicidal ideation - I just said I couldn't live this way. I wouldn't hurt myself. Denies any SI, HI, intent or plan. No AVH, delusions or paranoia. Tolerating the very low dose Doxepin very well. OBJECTIVE: Transitions of Care Critical Issues: none LABS AND PROCEDURES PENDING AT DISCHARGE: No pending results. New problems on the unit since the last encounter: No Any new medication reactions since the last encounter: No BP 112/68 Pulse 74 Temp (Src) 97.2 (Oral) Resp 16 Ht 5' 3 (1.60m) Wt 99 lb (44.9kg) SpO2 100% LMP 02/11/2006 BMI 17.54 kg/(m2). MENTAL STATUS EXAM AT DISCHARGE: Appearance: Well dressed, well groomed Behavior: Appropriate Orientation: Person, Place, Time and Situation Speech/Language: The patient demonstrates appropriate tone, prosody, emma, phonetics, and syntax Mood/Affect: Anxious Thought/Form: Coherent Thought Content: Coherent Suicidal Ideations: No suicidal ideation, intent or plan. Homicidal Ideations: No homicidal ideation, intent or plan. Insight: Fair Judgment: Appropriate Memory/Cognition: Intact Psychomotor: Psychomotor activity was normal LABORATORY DATA: The laboratory/imaging results have been reviewed. Pertinent findings since the last assessment: No TREATMENT PLAN: 1. Biological Management: Continue current 2. Psychological Management Recommendations: Encourage group, milieu and individual therapy. 3. Social Intervention Recommendations: per INFORMED CONSENT: Yes, completed with the Patient. Discussed the risks, benefits and alternatives to the medication(s) recommended. Consent was given. ALLERGIES Allergen Reactions - Flovent [Fluticason* Other: See Comments took breath away - Penicillins Rash - Prednisone Mental Status Change Depression DISCHARGE MEDICATION: Discharge Medication List as of 05/10/2021 2:01 PM CONTINUE these medications which have CHANGED doxepin capsule 10 mg Take 1 capsule by mouth daily at bedtime. Normal, Disp-30 capsule, R-0 CONTINUE these medications which have NOT CHANGED Cholecalciferol, Vitamin D3, 50 mcg (2,000 unit) cap Take 1 capsule by mouth once daily. Med Update, Long-term Dx: 1. Vitamin D deficiency OTC NUTRITIONAL SUPPLEMENT Garden of Life, once daily womens Copper 2 mg daily Fish Oil : Super Fisol, [address] Historical Med ketoconazole (NIZORAL) 2 % cream Apply a thin layer to affected area twice daily for 2 weeks, then once weekly for maintenance. Normal, Disp-30 g, R-2 Dx: 1. Seborrheic dermatitis STOP taking these medications ergocalciferol 50,000 unit capsule (VITAMIN D2, DRISDOL) Comments: Reason for Stopping: Ipratropium Coulter (ATROVENT) 21 mcg (0.03 %) nasal spray Comments: Reason for Stopping: cyanocobalamin (VITAMIN B-12) 1,000 mcg tab Comments: Reason for Stopping: Blood Pressure Monitor Comments: Reason for Stopping: Omeprazole Magnesium (PRILO (more content not included)... [facility] NURSING PROGon 05-10-2021 NURSING PROG HNO ID: [id number] Author: Yvonne Gastelum, GLEN Service: Nursing Author Type: Registered Nurse Type: Nursing Progress Note Filed: 05/10/2021 2:44 PM Note Text: Nursing Progress Note Patient Name: Giovanna Nation Patient Location: [id number]/ 53- Daily Note: Pt calm, cooperative, pleasant. Present in the day area and social with others. Some COVID paranoia lingers, such as not accepting a face mask after another staff member touched it. No complaints overall and feels hopeful for d/c today. Pt denies SI without any plans or intentions of self harm on unit. Denies HI and any hallucinations. Will continue to monitor. Pt educated on all medications and follow up appointments. No further questions or concerns. Continues to feel safe for d/c and denies any SI. All belongings returned. Left unit at 1440 with tax sisal picker. This note was completed by: Yvonne Gastelum [facility] NURSING PROG HNO ID: [id number] Author: Rhonda Sierra RN Service: Behavioral Health Author Type: Registered Nurse Type: Nursing Progress Note Filed: 05/10/2021 2:53 AM Note Text: Nursing Progress Note Patient Name: Giovanna Nation Patient Location: [id number]/[facility] Daily Note:Pt resting quietly in bed monitor for safety q 15 min This note was completed by: Rhonda Sierra [facility] NURSING PROG HNO ID: [id number] Author: Kathe Armando RN Service: ? Author Type: Registered Nurse Type: Nursing Progress Note Filed: 05/09/2021 11:04 PM Note Text: Nursing Progress Note Patient Name: Giovanna Nation Patient Location: [id number]/[facility] Daily Note: Anxious, restless, and pacing at times. States she usually walks 3-5 miles a day and is trying to work off energy. Denies and/or is very guarded about events prior to admission. Many small requests, especially early evening, but patiently waits for requests to be met. Occasional socializing with select peers. Interacted well with student nurses. Denies suicidal/homicidal ideation, hallucinations or pain. Speech tends to be rapid and pressured but mood seems stable. Gave long circuitous story of why she uses Nicotine gum, yet has not Nicotine cravings and stopped smoking over a year ago. Overall is pleasant and friendly with peers and staff. Ate less than 75% dinner, but requests extra juice and ice cream. Refused snacks. Medication compliant at 2100. Broset score = 0 This note was completed by: Kathe Armando [facility] CASE MANAGEMon 05-09-2021 CASE MANAGEM HNO ID: [id number] Author: BILL Arevalo Service: ? Author Type: Youth Court Judge Type: Care Mgt Progress Note Filed: 05/09/2021 3:58 PM Note Text: BEHAVIORAL HEALTH SOCIAL WORK PROGRESS NOTE SERVICE DATE: 05/09/2021 SERVICE TIME: 3:10pm Patient reviewed in treatment team; pt has depression and anxiety mainly around COVID and attends some groups. JENNIFER and BHAVYAI engaged with patient in the consult room. Pt appeared in casual clothes, kempt, with two masks. Pt has an anxious affect and requests to be at distance from these workers. Pt enocuraged to sit where she feels comfortable. Patient has rapid speech and coherent thoughts. Patient attributes her anxiety to possibly having COVID before many people knew about that and endorsed this as being very scary. Pt states that she was having intense leg pain the past two days and nights attributing to no sleep the past two nights. Pt reports talking with her provider about her legs and being triggered that her pain in her legs was a blood clot form COVID which, sent her into fearfulness that this will never be over. Patient reports trusting relationship with both of her providers. She also highly endorses COVID recovery through [facility]. 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 SW validated patients fearfulness of COVID and endorsed that she is not alone with these feelings. Patient refused to sign AFUA for her psychiatrist (Dr. Sexton) stating that she would rather sign the release at his office and have her discharge records come from medical records of [facility] at a later date. Patient refused SW help to schedule follow up appointments stating that she will do it. Patient also is linked with counselor La Nena Alfredo through [facility]. Patient seems discharged focused but grateful for these workers validation and has no further needs at this time. SW to continue to follow and assist pt during admission. SIGNATURE: KIKI Dela Cruz PATIENT NAME: Giovanna Nation DATE: May 09, 2021 TIME: 3:[address] Judge Attestation I have reviewed the above documentation. I agree with the findings and plan as documented. SIGNATURE: BILL Arevalo PATIENT NAME: Giovanna Nation DATE: May 09, 2021 TIME: 3:58 PM [facility] NURSING PROGon 05-09-2021 NURSING PROG HNO ID: [id number] Author: Dione Lal RN Service: Behavioral Health Author Type: Registered Nurse Type: Nursing Progress Note Filed: 05/09/2021 3:12 PM Note Text: Nursing Progress Note Patient Name: Giovanna Nation [id number] Daily Note: Visible on the unit, compliant with meds and care. Cooperative and remained in control this shift. Denies si/hi/avh. Will continue to monitor. This note was completed by: Dione Lal [facility] NURSING PROG HNO ID: [id number] Author: Nhung Ward RN Service: Nursing Author Type: Registered Nurse Type: Nursing Progress Note Filed: 05/09/2021 6:13 AM Note Text: Nursing Progress Note Patient Name: Giovanna Nation Patient Location: [id number]/[facility]5SOU-05 53-01 Daily Note: Received report and assumed care of patient at 1900. Patient seen in day area, occasionally walking around unit. Patient friendly with staff, withdrawn towards peers. Demanding at times, asks for items from staff frequently. Med complaint whole. Denies pain, SI. 0030 Patient in day area, verbalizes that roommate, who is asleep in room, is too loud. Trazodone offered, declined. 0130 Patient again verbalized to staff that she was experiencing difficulty sleeping due to roommate. Brick Setter offered patient earplugs. Patient was somewhat hesitant but accepted. Patient seen in room, sleeping, 1 hour later. 0600 Patient verbalized favorable results with ear plug uses. Asked for Tylenol for headache, given. Patient slept 8 hrs, Broset-0. This note was completed by: Nhung Ward Normal [facility] TSHon 05-09-2021 TSH Qn 0.535 m[IU]/L Normal 0.270-4.200 [facility] Comment on above: Performed By: #### T SH ####[facility] [facility]., [place] [phone] Vitamin B12on 05-09-2021 Cobalamin (Vitamin B12) [Mass/Vol] pg/mL High 232-1245 [facility] Comment on above: Performed By: #### B 12 #### [facility] [address] [facility]., [place] [id number] #### VITD #### [facility] [address] [place], [place] [address] Vitamin D 25 Hydroxyon 05-09 Vitamin D 25 Hydroxy 44.8 ng/mL Normal 31.0-80.0 [facility] Comment on above: Result Comment: Clas sification of 25 [place] Vitamin D status: Insufficiency/Moderate Deficiency: < or = 30 ng/mL Sufficiency/Optimal Levels: 31 to 80 ng/mL Toxicity: > 100 ng/mL Test performed by chemiluminescent immunoassay. Performed By: #### B 12 ####[place] [phone]#### VITD ####[phone] Hemoglobin A1con 05-08-2021 Glucose [Mass/Vol] 100 mg/dL Normal [facility] Comment on above: Result Comment: eAG: (Estimated average glucose) is a calculated value from HgbA1c and is car sales representative of the average blood glucose level in the last 2-3 month period. Performed By: #### H BA1C ####[place] [phone]#### LIPB ####[place] [phone] HbA1c (Bld) [Mass fraction] 5.1 % Normal 4.3-5.6 [facility] Comment on above: Result Comment: Amer ican Diabetes Association guidelines indicate that patients with HgbA1c in the range 5.7-6.4% are at increased risk for development of diabetes, and intervention by lifestyle modification may be beneficial. HgbA1c greater or equal to 6.5% is considered diagnostic of diabetes. Performed By: #### H BA1C ####[place] [phone]#### LIPB ####[place] [phone] Lipid Panel, [place] 021 Cholesterol [Mass/Vol] 175 mg/dL Normal <200 [facility] Comment on above: Result Comment: <200 mg/dL, Desirable 200-239 mg/dL, Borderline high >239 mg/dL, High Performed By: #### H BA1C ####[address] [phone]#### LIPB ####[address] [phone] Cholesterol in HDL [Mass/Vol] 54 mg/dL Normal >39 [facility] Comment on above: Result Comment: 40-5 9 mg/dL, Acceptable >59 mg/dL, High: Negative risk factor for coronary heart disease <40 mg/dL, Low: Positive risk factor for coronary heart disease Performed By: #### H BA1C ####[place] [phone]#### LIPB ####[place] [phone] Cholesterol in LDL [Mass/Vol] 103 mg/dL High <100 [facility] Comment on above: Result Comment: <100 mg/dL, Optimal 100-129 mg/dL, Near optimal/above optimal 130-159 mg/dL, Borderline high 160-189 mg/dL, High >189 mg/dL, Very high Secondary prevention optimal LDL Cholesterol levels are recommended to be < 70 mg/dL Performed By: #### H BA1C ####[place] [phone]#### LIPB ####[address] [phone] Fasting Time Unknown Normal [facility] Comment on above: Performed By: #### H BA1C ####[place] [phone]#### LIPB ####[place] [phone] LDL:HDL Ratio 1.91 Normal <2.54 [facility] Comment on above: Result Comment: Refe rence: 1. National Cholesterol Education Program ATP III Guideline At-A-Glance Quick Desk Reference: National Heart, Lung, and Blood [place]. National Institutes of Health. 2001: NIH Publication No. 01-3305. 2. An International Atherosclerosis Society position paper: global recommendations for the management of dyslipidemia: executive summary, Atherosclerosis. 2014: 232(2):410-413. Performed By: #### H BA1C ####[place] [phone]#### LIPB ####[address] [phone] Non HDL Cholesterol 121 mg/dL Normal <130 [facility] Comment on above: Result Comment: <130 mg/dL, Optimal 130-159 mg/dL, Near optimal/above optimal 160-189 mg/dL, Borderline high 190-219 mg/dL, High >219 mg/dL, Very high Secondary prevention optimal non HDL Cholesterol levels are recommended to be < 100 mg/dL Performed By: #### H BA1C ####[place] [phone]#### LIPB ####[address] [phone] TC:HDL Ratio 3.24 Normal <5.10 [facility] Comment on above: Performed By: #### H BA1C ####[place] [phone]#### LIPB ####[address] [phone] Triglyceride [Mass/Vol] 90 mg/dL Normal <150 [facility] Comment on above: Result Comment: <150 mg/dL, Normal 150-199 mg/dL, Borderline high 200-499 mg/dL, High >499 mg/dL, Very high Performed By: #### H BA1C ####[place] [phone]#### LIPB ####[address] [phone] VLDL Cholesterol 18 mg/dL Normal <30 [facility] Comment on above: Performed By: #### H BA1C ####[facility] [place] [place], [place] [phone]#### LIPB ####[facility] [place], [place] [phone] NURSING PROGon 05-08-2021 NURSING PROG HNO ID: [id number] Author: Yvonne Gastelum RN Service: Nursing Author Type: Registered Nurse Type: Nursing Progress Note Filed: 05/08/2021 6:06 PM Note Text: Nursing Progress Note Patient Name: Giovanna Nation Patient Location: [id number]- Daily Note: Pt appears restless, such as walking the halls and not being able to sit still. States she typically walks 3 miles a day. Does not believe she needs to be admitted since there are sicker people than me who need help. Accepting of her having a roommate, and she feels proud of herself to be in the same room as another person. However, continues to refuse groups because she wants to maintain far distance from others. Pt denies SI without any plans or intentions of self harm on unit. Denies HI and any hallucinations. Will continue to monitor. 1800- Pleasant and without issue throughout the day. Attended 1 group. Walks hallway frequently and requests PRN nicotine gum. Present in the day area throughout the day and voices no complaints. This note was completed by: Yvonne Gastelum [facility] NURSING PROG HNO ID: [id number] Author: Nhung Ward RN Service: Nursing Author Type: Registered Nurse Type: Nursing Progress Note Filed: 05/08/2021 6:22 AM Note Text: Nursing Progress Note Patient Name: Giovanna CARRASCON: [id number] Patient [facility] [id number][facility] Daily Note: Received report and assumed care of patient at 1900. Patient seen in room, occasionally walking around unit. Pleasant, somewhat demanding. Asked for nicorette gum, given. Med compliant whole with water. Denies pain, SI. 0330 Patient approached staff, verbalized headache. Tylenol given. Patient told sign writer hand that she feels uncomfortable when other patients become irritable. Brick Setter encouraged patient to let staff members know when she is feeling uncomfortable, and that interventions are taken to maintain safety on unit. 0600 Patient seen in day area, stated My roommate is snoring, sign writer hand offered earplugs, patient stated No thank you, I would like to hear what's going on around me. Patient slept 8 hrs, Broset-0. This note was completed by: Nhung Ward [facility] 05-07-2021 ALLIED HEALTH O ID: [id number] Author: ZITA Kelley Service: ? Author Type: Therapist Type: Allied Health Filed: 05/07/2021 12:58 PM Note Text: PERSONAL DE-ESCALATION PLAN BEHAVIORAL HEALTH SERVICE DATE: 05/07/2021 SERVICE TIME: 12:56 PM Personal De-Escalation Completed: Yes. PROBLEM BEHAVIORS: What type of behaviors are problems for you: Feeling Suicidal, Losing Control and pain What types of things (triggers) make you feel unsafe or upset: Being Isolated, Feeling Lonely, Feeling Pressured, Not Being Listened to and Not Having Control Please describe your warning signs, for example what other people may notice when you begin to lose control: Sleeping Less What are some things that help to calm you down or keep you safe: Going for a Walk What are some things that do NOT help you calm down or stay safe: Being Alone, Being Disrespected, Being Ignored, Having Many People Around Me, Loud Tone of Voice and Not Being Listened To STRENGTHS: What are your strengths when feeling out of control: Walks outdoors, gardening, reading, music, writing SKILLS: What skills do you have/what are you good at: Outdoor activities OTHER: Are you able to communicate to staff when you are having a hard time: Yes What kinds of incentives work for you: Relaxation, outdoors SIGNATURE: Char ZITA Patel PATIENT NAME: Giovanna Nation DATE: May 07, 2021 TIME: 12:56 PM PAGER/CONTACT #: [facility] ALLIED HEALTH HNO ID: [id number] Author: ZITA Kelley Service: ? Author Type: Therapist Type: Allied Health Filed: 05/07/2021 1:00 PM Note Text: THERAPEUTIC PROGRAMMING ASSESSMENT SERVICE DATE: 05/07/2021 SERVICE TIME: 12:58 PM RECOMMENDATIONS: Cognitive Communication Skills Lua Exercise Expressive Therapy Horticulture Leisure Skills Relaxation Self Awareness Sensory Stimulation Socialization Stress Management ACTIVITIES OF DAILY LIVING (Difficulty in the following ADL areas): Sleeping GENERAL OBSERVATIONS: Affect: Appropriate Alert Communication: Appropriate interaction Responds when approached Cooperative Minimizes problem areas Mood: Calm ASSESSMENT COMPLETED: Yes: STRESS MANAGEMENT SKILLS: Identified Stressors: per report: depression, SI, presented with leg and low back back pain. States that the pain is so bad that she no longer wants to live. Has spent the last 19 months rarely leaving her house for fear of getting sick again. Effective Coping Strategies Used: Walks outdoors, gardening, reading, music, writing Ineffective Coping Strategies Used: decreased sleep, rarely leaving her home Describe what you do on an average day: pt states she is not currently working and helps care for her mother on a daily basis. INTERESTS: Current: Gardening/Plant Care, Music, Listening, Reading, Walk Outdoors and Writing Future: same as above No Interest: Arts, Cards, Crafts, Crosswords/Word Puzzles, Games, Watching Movies and Watching TV Past Interest: same as above PATIENT'S GOALS FOR RECREATIONAL THERAPY PROGRAM: Channel energy/feelings into constructive outlets Improve coping skills Improve use of leisure time SIGNATURE: ZITA Kelley PATIENT NAME: Giovanna Nation DATE: May 07, 2021 TIME: 7:16 AM PAGER/CONTACT #: [facility] CASE MGT SANGEETHA Corley 2020 CASE MGT INJESSENIA DALTON HNO ID: [id number] Author: HAILY An Service: Social Work Author Type: Youth Court Judge Type: Care Mgt Initial Assessment Filed: 05/07/2021 1:49 PM Note Text: BEHAVIORAL HEALTH SOCIAL WORK/CARE MANAGEMENT ASSESSMENT AND DISCHARGE PLAN SERVICE DATE: 05/07/2021 SERVICE TIME: 1:11 PM Reason for Admission: Per [facility]HI: Giovanna Nation is a 60 year old female brought in to [facility] ED from Home by self for hip and back pain and suicidal ideation. ? Per Psych Consult Dr. Jus Parsons (psych resident): ? ? Consulting Service:?Psychiatry, requested by Dr. Harsha Hoff MD's team ? REASON FOR CONSULTATION:?Suicidal ideation. ? ? Subjective []?Expand by Default ? IDENTIFYING INFO:?Giovanna Nation is a 60 year old unemployed?Not female who lives alone?in [place], [place]. ?? ? History of Present Illness: Giovanna is 60 yo F with PPH remote depression, ADHD who presented to the ED for workup of her hip/back pain at the suggestion of her PCP. Psychiatry consulted for SI. ? Patient seen in he room. She is immediately defensive saying her pain is not her head.?Tells a very detailed history in which she had this leg/back cramping, numbness for 2 weeks about 19 months ago. Then became sick and thinks she had COVID (was not tested). Now is having the same numbness, pain now and is scared she has COVID. Has spent the last 19 months rarely leaving her house for fear of getting sick again. ? Has been having this leg pain for about 2 weeks now and does not think she can handle it. Is fed up. Says that yesterday it became so bad that she called and got an emergency appointment with her PCP today. Says that is the only thing that helped her make it through the night. Says you wouldn't be talking to me right now if I didn't have that appointment. When asked to elaborate, she says she wouldn't have been here because she can't handle it. Says she doesn't necessarily want to but she cannot (and will not) live with this pain. Has a plan but will not share because she says it does not change anything. Denies access to firearms. ? History of remote depression 28 years ago during which she was admitted for SI. No prior attempts. No current antidepressant medications- was on doxepin in the past. Stopped Strattera 3 months ago 2/2 tachycardia. Was not sleeping well but the past few nights found some old leftover doxepin and that has helped. Poor concentration, hopelessness. ? Patient is very close to her OP psychiatrist and says she is unsure if she feels this way because they have known each other a long time and have been through a lot or if it is because he is a man. Saw Dr. Alfredo ([facility]) for therapy last month and is interested in seeing her more often.? ? 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 No Information obtained from: Chart Patient Referred by: Medical Team and Self Living Arrangements Prior to Admission: Apartment Prior to Admission, Patient was Living with: N/A - Patient Lives Alone Marital Status: . Relationship described as unknown Children (including quality of relationship): One adult son who is nto involved Sexual Orientation: Heterosexual SOCIAL HISTORY Giovanna Nation was born and raised in [place] [facility] and Unknown by her biological parents. Her childhood is described as good. She has one brother and one sister. She has friendly relationship with mother. 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 -per chart review, pt has worked at [employer] summer 2019 Financial Resources: Family Savings Food Insecurity: Unknown ? ? Worried About Running Out of Food in the Last Year: Patient refused ? ? Ran Out of Food in the Last Year: Patient refused Financial Resource Strain: Unknown ? ? Difficulty of Paying Living Expenses: Patient refused Transportation Needs: Unknown ? ? Lack of Transportation (Medical): Patient refused ? ? 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 Sexton ([place]) - Therapist: did initial eval on 04/04 - Previous Mental Health Interventions: Medication and Hospitalization(s) - Pt jumped arou (more content not included)... [facility] CONSULTon 05-07-2021 CONSULT HNO ID: [id number] Author: Janis Saab MD Service: ? Author Type: Physician Type: Consults Filed: 05/07/2021 6:07 PM Note Text: INTERNAL MEDICINE INITIAL CONSULT SERVICE DATE: 05/07/2021 SERVICE TIME: REASON FOR CONSULT: medical management REQUESTING PHYSICIAN: PRIMARY CARE PHYSICIAN: Hortencia Love DO Subjective HISTORY OF PRESENT ILLNESS: Ms. Nation is a 60 year old female With h/o ADHD who presents With depression and suicidal ideation. PAST MEDICAL HISTORY Diagnosis Date - Attention deficit disorder without mention of hyperactivity Adult - Closed fracture of distal end of left radius 08/21/2016 - Excessive or frequent menstruation - Myalgia and myositis, unspecified PAST SURGICAL HISTORY Procedure Laterality Date - APPENDECTOMY - APPENDECTOMY HX - LIGATE FALLOPIAN TUBE Tubal ligation FAMILY HISTORY Problem Relation Age of Onset - Cancer Mother Cervical cancer- treated - Psychiatry Sister suicide - Ischemic Heart Disease Brother 60 [place], heavy smoker, Etoh - Psychiatry Son Opoid dependency - Cancer Other Niece (sister's daughter) Social History Tobacco Use - Smoking status: Former Smoker Packs/day: 0.50 Types: Cigarettes - Smokeless tobacco: Never Used Vaping Use - Vaping Use: Former Substance Use Topics - Alcohol use: No - Drug use: Never perflutren lipid microspheres 1.3 mL in NaCl (PF) 0.9% 10 mL injection (DEFINITY), , INTRAVENOUS, DIRECTED PRN, Huma Parekh, PLASTERER ROUGH.DEVELOPMENT CONSULTANT sodium chloride 0.9 % (flush) 10 mL (BD POSIFLUSH), 10 mL, INTRAVENOUS, DIRECTED PRN, Huma Parekh, PLASTERER ROUGH.DEVELOPMENT CONSULTANT Cholecalciferol, Vitamin D3, 50 mcg (2,000 unit) cap, Take 1 capsule by mouth once daily., Disp: , Rfl: , 05/06/2021 at Unknown time cyanocobalamin (VITAMIN B-12) 1,000 mcg tab, Take 1 tablet by mouth once daily., Disp: , Rfl: , 05/06/2021 at Unknown time doxepin capsule 10 mg, Take 10 mg by mouth at bedtime as needed., Disp: , Rfl: OTC NUTRITIONAL SUPPLEMENT, Unsocial of Life, once daily womens Copper 2 mg daily Fish Oil : Super Fisol, [address], Disp: , Rfl: ergocalciferol 50,000 unit capsule (VITAMIN D2, DRISDOL), Take 1 capsule by mouth one time a week., Disp: 8 capsule, Rfl: 0 ketoconazole (NIZORAL) 2 % cream, Apply a thin layer to affected area twice daily for 2 weeks, then once weekly for maintenance., Disp: 30 g, Rfl: 2 Ipratropium Coulter (ATROVENT) 21 mcg (0.03 %) nasal spray, Use 2 Sprays in the nose three times daily. (Patient not taking: Reported on 04/29/2021 ), Disp: 1 Bottle, Rfl: 0 Blood Pressure Monitor, 1 Each once daily. (Patient not taking: Reported on 04/29/2021 ), Disp: 1 Each, Rfl: 0 Omeprazole Magnesium (PRILOSEC OTC) 20 mg tablet, Take 1 tablet by mouth once daily. (Patient not taking: Reported on 05/06/2021 ), Disp: 30 tablet, Rfl: 0 Current Facility-Administered Medications Medication Dose Route Frequency - nicotine polacrilex 2 mg gum (NICORETTE) 2 mg ORAL q 2 H PRN - LORazepam 2 mg (ATIVAN) 2 mg ORAL q 4 H PRN Or - LORazepam 2 mg injection (ATIVAN) 2 mg INTRAMUSCULAR q 4 H PRN - haloperidol 5 mg tab(s) (HALDOL) 5 mg ORAL q 4 H PRN Or - haloperidol lactate 5 mg short-acting injection (HALDOL) 5 mg INTRAMUSCULAR q 4 H PRN - acetaminophen 650 mg tab(s) (TYLENOL) 650 mg ORAL q 6 H PRN - aluminum-magnesium hydroxide-simethicone 200-200-20 mg/5 mL 30 mL (MAALOX,MYLANTA,MAG-AL PLUS) 30 mL ORAL q 4 H PRN - magnesium hydroxide 400 mg/5 mL 30 mL (MOM) 30 mL ORAL DAILY PRN - doxepin 10 mg cap(s) (SINEquan) 10 mg ORAL AT BEDTIME ALLERGIES Allergen Reactions - Flovent [Fluticason* Other: See Comments took breath away - Penicillins Rash - Prednisone Mental Status Change Depression COMPLETE REVIEW OF SYSTEMS: GENERAL: No malaise or fevers. HEENT: Negative for nose bleeds or other nasal problems NECK: Negative for goiter, pain or significant neck swelling RESPIRATORY:no cough, no sob CARDIOVASCULAR: No chest pain or palpitations GI: No nausea, vomiting, or diarrhea : No history of dysuria, frequency or incontinence MUSCULOSKELETAL: Negative for joint pain or swelling, back pain or muscle pain SKIN: Negative for lesions, rash, and itching. HEMATOLOGY/LYMPHOLOGY: Negative for prolonged bleeding, bruising easily or swollen nodes. ENDOCRINE: Negative for cold or heat intolerance, polyuria or polydipsia. NEURO: No history of headaches, syncope, paralysis, seizures or tremors Objective PHYSICAL EXAM: Patient Vitals for the past 24 hrs: BP Temp Temp src Pulse Resp SpO2 Height Weight 05/07/21 0946 ? 160 cm (5' 3) 44.9 kg (99 lb) 05/07/21626 127/92 ? ? 100 ? 05/07/21 0626 114/77 36.7 ?C (98.1 ?F) Oral 84 18 99 % ? ? Body mass index is 17.54 kg/m?. GENERAL: Healthy, alert, no distress, cooperative SKIN: No rashes or lesions. OROPHARYNX: Oropharynx normal. NECK: No jugulovenous distention, No carotid bruits, Carotid pulse normal c (more content not included)... [facility] HISTORY PHYSICALon HISTORY PHYSICAL HNO ID: [id number] Author: Ilan Coronado MD Service: Psychiatry Author Type: Physician Type: HANDP Filed: 05/07/2021 11:16 AM Note Text: HISTORY AND PHYSICAL BEHAVIORAL HEALTH SERVICE DATE: 05/07/2021 SERVICE TIME: 7:43 AM IDENTIFYING INFORMATION: Giovanna Nation is a 60 year old person who identifies as female. REASON FOR ADMISSION: Depression and Suicidal ideation Subjective HPI: Giovanna presents for admission secondary to Risk of physical harm to self. Pt is a 60 yoF with no previous psych history. Patient reports that she believes that she contracted COVID 19 months earlier, since then her life has been 1 struggle after another. Patient reports that she mostly remains to herself in her apartment is rarely left her apartment. The patient reports that she has significant pain issues, that she believes came from her COVID infection. Did states that her current physician that I just cannot live like this anymore. Patient denies any current SI at this time, denies any previous suicide attempts in the past. She is currently seeing a psychiatrist and a therapist, she has major concerns about taking any types of medications. Currently she is only taking vitamins did take doxepin in the past which did help her, she is open to restarting doxepin. Per intake note: 60 yo F with PPH remote depression, ADHD who presented to the ED for workup of her hip/back pain at the suggestion of her PCP. Psychiatry consulted for SI. Patient seen in her room. She is immediately defensive saying her pain is not her head.?Tells a very detailed history in which she had this leg/back cramping, numbness for 2 weeks about 19 months ago. Then became sick and thinks she had COVID (was not tested). Now is having the same numbness, pain now and is scared she has COVID. Has spent the last 19 months rarely leaving her house for fear of getting sick again. ? STRESSORS: Chronic illness PSYCHIATRIC REVIEW OF SYMPTOMS: Depression: + Depressed mood and + Hopelessness with passive thoughts of /suicide, but no intent or plan Emma: Denies any history of hypomanic or manic episodes. Psychosis: Denies any auditory / visual hallucination or paranoid ideation. REENA: Excessive worry more than not, Difficulty controlling worry, Restless / Keyed up, Muscle tension and Sleep disturbance OCD: Denies any symptoms of OCD. PTSD: Denies any PTSD symptoms. MEDICAL REVIEW OF SYSTEMS: GENERAL: Negative for malaise, significant weight loss and fever. HEENT: No changes in hearing or vision, no nose bleeds or other nasal problems. RESPIRATORY: Negative for cough, wheezing and shortness of breath. CARDIOVASCULAR: Negative for chest pain, leg swelling and palpitations. GI: Negative for abdominal discomfort, blood in stools or black stools. : Negative for dysuria, frequency and incontinence. MUSCULOSKELETAL: Negative for joint pain or swelling, back pain, and muscle pain. SKIN: Negative for lesions, rash, and itching. HEMATOLOGY/LYMPHOLOGY Negative for prolonged bleeding, bruising easily, and swollen nodes. ENDOCRINE: Negative for cold or heat intolerance, polyuria, polydipsia and goiter. NEURO: Negative for headaches, syncope, seizures and paralysis. PSYCHIATRIC HISTORY: Diagnoses: ADHD Current Psychiatrist: Dr. Sexton ([place]) Current Therapist: Patient denies but per chart (Dr. Alfredo) Psychiatric Hospitalization(s): 1x, 28 years ago History of Suicide Attempts: None Previous Psychiatric Medication Trials: Strattera, doxepin Current Outpatient Psychiatric Medications: None PAST MEDICAL HISTORY Diagnosis Date - Attention deficit disorder without mention of hyperactivity Adult - Closed fracture of distal end of left radius 08/21/2016 - Excessive or frequent menstruation - Myalgia and myositis, unspecified HOME MEDICATIONS: No current facility-administered medications on file prior to encounter. Current Outpatient Medications on File Prior to Encounter Medication Sig - doxepin capsule 10 mg Take 10 mg by mouth at bedtime as needed. - OTC NUTRITIONAL SUPPLEMENT [facility], once daily womens Copper 2 mg daily Fish Oil : Super Fisol, [address] - ergocalciferol 50,000 unit capsule (VITAMIN D2, DRISDOL) Take 1 capsule by mouth one time a week. - ketoconazole (NIZORAL) 2 % cream Apply a thin layer to affected area twice daily for 2 weeks, then once weekly for maintenance. - Ipratropium Coulter (ATROVENT) 21 mcg (0.03 %) nasal spray Use 2 Sprays in the nose three times daily. (Patient not taking: Reported on 04/29/2021 ) - Cholecalciferol, Vitamin D3, 50 mcg (2,000 unit) cap Take 1 capsule by mouth once daily. - cyanocobalamin (VITAMIN B-12) 1,000 mcg tab Take 1 tablet by mouth once daily. - Blood Pressure Monitor 1 Each once daily. (Patient not taking: Reported on 04/29/2021 ) - Omeprazole Magnesium (PRILOSEC OTC) 20 mg tablet Take 1 tablet by mouth once daily. (more content not included)... [facility] NURSING PROGon 05-07-2021 NURSING PROG HNO ID: [id number] Author: Yvonne Gastelum RN Service: Nursing Author Type: Registered Nurse Type: Nursing Progress Note Filed: 05/07/2021 5:12 PM Note Text: Nursing Progress Note Patient Name: Giovanna Nation Patient Location: [id number]/[id number] 53- Daily Note: Pt admitted for vague SI and paranoia related to COVID. Fearful that she is going to spread COVID to others, or fearful that she will get COVID again. States she does not leave her house and is very cautious, including needing grocery curbside left on the curb so she does not interact with staff members. Refused to attend morning groups because of these fears. Ate breakfast in the corner of the day area to stay socially distanced from others. Feels anxious but appears to have some good insight that she needs help from these fears. Involuntary status and doesn't feel she needs the restricted stay of a psychiatric unit. Feels unbelief with certain unit rules. Rapid speech noted but she has been pleasant and cooperative. Pt denies SI without any plans or intentions of self harm on unit. Denies HI and any hallucinations. Will continue to monitor. 1700- Pt intermittently withdrawn to room. Walks halls frequently d/t boredom. Refused all groups because of COVID fears. Pleasant with others but mainly keeps to herself. No complaints. This note was completed by: Yvonne Gastelum [facility] NUTRITIONon 05-07-2021 NUTRITION HNO ID: [id number] Author: Rohit Sampson RD Service: Nutrition Therapy Author Type: Registered Dietitian Type: Nutrition Filed: 05/07/2021 2:41 PM Note Text: NUTRITION THERAPY SCREEN NOTE SERVICE DATE: 05/07/2021 SERVICE TIME: 1100 Care Plan: Continue current diet Supplements: Ensure Enlive Discharge Recommendations: Diet Diet: Regular Intake History: Nutrition Intake Prior to Admission: Greater than 75% estimated energy needs greater than or equal to 3 months Current Intake: Greater than 75% estimated energy needs Over: 1 day Diet Orders (From admission, onward) Start Ordered 05/07/21 1445 DIET SUPPLEMENTS START NOW Question Answer Comment Supplement 1 ENSURE ENLIVE CHOCOLATE Supplement 1 Frequency 1. BREAKFAST Supplement 2 ENSURE ENLIVE VANILLA Supplement 2 Frequency 5. DINNER 05/07/21 1438 05/07/21 0945 DIET REGULAR START NOW Question Answer Comment Tray Precautions SAFETY PLASTIC OR DISPOSABLE SERVICE ESCALERA Cultural VEGETARIAN 05/07/21 0938 Anthropometrics: Height: 160 cm (5' 3) Weight: 44.9 kg (99 lb) Usual Weight: 45.4 kg (100 lb) Weight change percentage over time: Not clinically significant; UBW 100-104lbs MNT Billing Type: Initial Assess/15 min 1 unit SIGNATURE: Rohit Sampson RD PATIENT NAME: Giovanna Nation DATE: May 07, 2021 TIME: 2:40 PM PAGER: [phone] [facility] XR Chest PA and Lateralon IMPRESSION: No acute radiographic abnormality. Unix Consultant: ROSA Transcribe Date/Time: Jan 27 2021 8:24A Dictated by : EDDIE ROWLAND MD This examination was interpreted and the report reviewed and electronically signed by: EDDIE ROWLAND MD on Jan 27 2021 8:25AM [facility] DIVISION OF RADIOLOGY * * *Final Report* * * DATE OF EXAM: Jan 26 2021 6:03PM CCX 5291 - XR CHEST 2V FRONTAL/LAT / PROCEDURE REASON: multiple diagnoses * * * * Physician Interpretation * * * * EXAMINATION: XR CHEST 2V FRONTAL/LAT Clinical History: POST COVID19 CALDERON CHEST PAIN. Suspected COVID-19 virus infection Fatigue, unspecified type CALDERON (dyspnea on exertion) Chest pain, unspecified type. MQ: XC2_5 Comparison: none available RESULT: Lines, tubes, and devices: none Lungs and pleura: No consolidation. No lung mass. No pleural effusion. Cardiomediastinal silhouette: Normal. Other: Right nipple shadow visible. - DIVISION OF RADIOLOGY Provider, [facility] - 01/27/2021 * * *Final Report* * * DATE OF EXAM: Jan 26 2021 6:03PM CCX [id number] - XR CHEST 2V FRONTAL/LAT / PROCEDURE REASON: multiple diagnoses * * * * Physician Interpretation * * * * EXAMINATION: XR CHEST 2V FRONTAL/LAT Clinical History: POST COVID19 CALDERON CHEST PAIN. Suspected COVID-19 virus infection Fatigue, unspecified type CALDERON (dyspnea on exertion) Chest pain, unspecified type. MQ: XC2_5 Comparison: none available RESULT: Lines, tubes, and devices: none Lungs and pleura: No consolidation. No lung mass. No pleural effusion. Cardiomediastinal silhouette: Normal. Other: Right nipple shadow visible. - IMPRESSION IMPRESSION: No acute radiographic abnormality. Unix Consultant: PSCB Transcribe Date/Time: Jan 27 2021 8:24A Dictated by : EDDIE ROWLAND MD This examination was interpreted and the report reviewed and electronically signed by: EDDIE ROWLAND MD on Jan 27 2021 8:25AM EST [facility] XR Chest PA and LateralOrder ed By: [facility] Provider on 01-27-2021 [facility] XR Chest PA and Lateralon Radiology Study observation (narrative) [facility] Vital Signs Date Time Vital Sign Value Performing Clinician Facility 03-05-2025 17:16-0400 Diastolic blood pressure 92 mm[Hg] No Generic Provider [facility] 03-05-2025 17:16-0400 Heart rate 74 /min No Generic Provider [facility] 03-05-2025 17:16-0400 Respiratory rate 18 /min No Generic Provider [facility] 03-05-2025 17:16-0400 SaO2% (BldA) [Mass fraction] 96 % No Generic Provider [facility] 03-05-2025 17:16-0400 Systolic blood pressure 120 mm[Hg] No Generic Provider [facility] 03-05-2025 15:31-0400 Body height 162.6 cm No Generic Provider [facility] 03-05-2025 15:31-0400 Body mass index (BMI) [Ratio] 17.85 kg/m2 No Generic Provider [facility] 03-05-2025 15:31-0400 Body temperature 98.1 [degF] No Generic Provider [facility] 03-05-2025 15:31-0400 Body weight 47.17 kg Paula Ruiz MD [facility] 02-04-2025 08:52-0400 Body mass index (BMI) [Ratio] 18.44 kg/m2 Leonarda Boykin MD Work Phone: [facility] 02-04-2025 08:52-0400 Body temperature 98.6 [degF] Leonarda Boykin MD Work Phone: [facility] 02-04-2025 08:52-0400 Body weight 47.2 kg Leonarda Boykin MD Work Phone: [facility] 02-04-2025 08:52-0400 Diastolic blood pressure 79 mm[Hg] Leonarda Boykin MD Work Phone: [facility] 02-04-2025 08:52-0400 Heart rate 71 /min Leonarda Boykin MD Work Phone: [facility] 02-04-2025 08:52-0400 SaO2% (BldA) [Mass fraction] 100 % Leonarda Boykin MD Work Phone: [facility] 02-04-2025 08:52-0400 Systolic blood pressure 118 mm[Hg] Leonarda Boykin MD Work Phone: [facility] 12-23-2024 11:40-0400 Body height 160 cm Leonarda Boykin MD Work Phone: [facility] 12-23-2024 11:40-0400 Body mass index (BMI) [Ratio] 18.71 kg/m2 Leonarda Boykin MD Work Phone: [facility] 12-23-2024 11:40-0400 Body temperature 99.1 [degF] Leonarda Boykin MD Work Phone: [facility] 12-23-2024 11:40-0400 Body weight 47.9 kg Leonarda Boykin MD Work Phone: [facility] 12-23-2024 11:40-0400 Diastolic blood pressure 72 mm[Hg] Leonarda Boykin MD Work Phone: [facility] 12-23-2024 11:40-0400 Heart rate 91 /min Leonarda Boykin MD Work Phone: [facility] 12-23-2024 11:40-0400 SaO2% (BldA) [Mass fraction] 100 % Leonarda Boykin MD Work Phone: [facility] 12-23-2024 11:40-0400 Systolic blood pressure 120 mm[Hg] Leonarda Boykin MD Work Phone: [facility] 10-03-2024 15:47-0400 Body mass index (BMI) [Ratio] 18.16 kg/m2 Leonarda Boykin MD Work Phone: [facility] 10-03-2024 15:47-0400 Body temperature 97.5 [degF] Leonarda Boykin MD Work Phone: [facility] 10-03-2024 15:47-0400 Body weight 46.5 kg Leonarda Boykin MD Work Phone: [facility] 10-03-2024 15:47-0400 Diastolic blood pressure 67 mm[Hg] Leonarda Boykin MD Work Phone: [facility] 10-03-2024 15:47-0400 Heart rate 86 /min Leonarda Boykin MD Work Phone: [facility] 10-03-2024 15:47-0400 Respiratory rate 16 /min Leonarda Boykin MD Work Phone: [facility] 10-03-2024 15:47-0400 SaO2% (BldA) [Mass fraction] 99 % Leonarda Boykin MD Work Phone: [facility] 10-03-2024 15:47-0400 Systolic blood pressure 105 mm[Hg] Leonarda Boykin MD Work Phone: [facility] 09-24-2024 09:05-0400 Body mass index (BMI) [Ratio] 17.9 kg/m2 Donna Mcneil DO Work Phone: [facility] 09-24-2024 09:05-0400 Body weight 45.81 kg Donna Mcneil DO Work Phone: [facility] 09-24-2024 09:05-0400 Diastolic blood pressure 76 mm[Hg] Donna Mcneil DO Work Phone: [facility] 09-24-2024 09:05-0400 Heart rate 75 /min Donna Mcneil DO Work Phone: [facility] 09-24-2024 09:05-0400 Systolic blood pressure 126 mm[Hg] Donna Mcneil DO Work Phone: [facility] 09-09-2024 11:53-0500 Body mass index (BMI) [Ratio] 18.01 kg/m2 Katerin Praisler-Wood PLASTERER ROUGH.DEVELOPMENT CONSULTANT Work Phone: [facility] 09-09-2024 11:53-0500 Body temperature 98.1 [degF] Katerin Praisler-Wood PLASTERER ROUGH.DEVELOPMENT CONSULTANT Work Phone: [facility] 09-09-2024 11:53-0500 Body weight 46.1 kg Katerin Praisler-Wood PLASTERER ROUGH.DEVELOPMENT CONSULTANT Work Phone: [facility] 09-09-2024 11:53-0500 Diastolic blood pressure 70 mm[Hg] Katerin Praisler-Wood PLASTERER ROUGH.DEVELOPMENT CONSULTANT Work Phone: [facility] 09-09-2024 11:53-0500 Heart rate 96 /min Katerin Praisler-Wood PLASTERER ROUGH.DEVELOPMENT CONSULTANT Work Phone: [facility] 09-09-2024 11:53-0500 Respiratory rate 18 /min Katerin Praisler-Wood PLASTERER ROUGH.DEVELOPMENT CONSULTANT Work Phone: [facility] 09-09-2024 11:53-0500 SaO2% (BldA) [Mass fraction] 98 % Katerin Praisler-Wood PLASTERER ROUGH.DEVELOPMENT CONSULTANT Work Phone: [facility] 09-09-2024 11:53-0500 Systolic blood pressure 118 mm[Hg] Katerin Praisler-Wood PLASTERER ROUGH.DEVELOPMENT CONSULTANT Work Phone: [facility] 09-04-2024 15:51-0500 Diastolic blood pressure 96 mm[Hg] Carlotta Archer MD Work Phone: [facility] 09-04-2024 15:51-0500 Heart rate 82 /min Carlotta Archer MD Work Phone: [facility] 09-04-2024 15:51-0500 Respiratory rate 16 /min Carlotta Archer MD Work Phone: [facility] 09-04-2024 15:51-0500 SaO2% (BldA) [Mass fraction] 100 % Carlotta Archer MD Work Phone: [facility] 09-04-2024 15:51-0500 Systolic blood pressure 171 mm[Hg] Carlotta Archer MD Work Phone: [facility] 08-25-2024 12:53-0500 Body height 160 cm Leonarda Boykin MD Work Phone: [facility] 08-25-2024 12:53-0500 Body mass index (BMI) [Ratio] 17.93 kg/m2 Leonarda Boykin MD Work Phone: [facility] 08-25-2024 12:53-0500 Body temperature 98.6 [degF] Leonarda Boykin MD Work Phone: [facility] 08-25-2024 12:53-0500 Body weight 45.9 kg Leonarda Boykin MD Work Phone: [facility] 08-25-2024 12:53-0500 Diastolic blood pressure 78 mm[Hg] Leonarda Boykin MD Work Phone: [facility] 08-25-2024 12:53-0500 Heart rate 86 /min Leonarda Boykin MD Work Phone: [facility] 08-25-2024 12:53-0500 SaO2% (BldA) [Mass fraction] 100 % Leonarda Boykin MD Work Phone: [facility] 08-25-2024 12:53-0500 Systolic blood pressure 136 mm[Hg] Leonarda Boykin MD Work Phone: [facility] 08-08-2024 16:46-0500 Diastolic blood pressure 83 mm[Hg] Michael Flynn MD Work Phone: [facility] 08-08-2024 16:46-0500 Heart rate 74 /min Michael Flynn MD Work Phone: [facility] 08-08-2024 16:46-0500 Systolic blood pressure 145 mm[Hg] Michael Flynn MD Work Phone: [facility] 08-08-2024 16:42-0500 Body height 160 cm Michael Flynn MD Work Phone: [facility] 08-08-2024 16:42-0500 Body mass index (BMI) [Ratio] 17.81 kg/m2 Michael Flynn MD Work Phone: [facility] 08-08-2024 16:42-0500 Body temperature 97.39 [degF] Michael Flynn MD Work Phone: [facility] 08-08-2024 16:42-0500 Body weight 45.6 kg Michael Flynn MD Work Phone: [facility] 08-08-2024 16:42-0500 Respiratory rate 16 /min Michael Flynn MD Work Phone: [facility] 08-08-2024 16:42-0500 SaO2% (BldA) [Mass fraction] 100 % Michael Flynn MD Work Phone: [facility] 07-28-2024 19:56-0500 Body height 160 cm Leonarda Boykin MD Work Phone: [facility] 07-28-2024 19:56-0500 Body mass index (BMI) [Ratio] 17.58 kg/m2 Leonarda Boykin MD Work Phone: [facility] 07-28-2024 19:56-0500 Body temperature 98.1 [degF] Leonarda Boykin MD Work Phone: [facility] 07-28-2024 19:56-0500 Body weight 45 kg Leonarda Boykin MD Work Phone: [facility] 07-28-2024 19:56-0500 Diastolic blood pressure 84 mm[Hg] Leonarda Boykin MD Work Phone: [facility] 07-28-2024 19:56-0500 Heart rate 86 /min Leonarda Boykin MD Work Phone: [facility] 07-28-2024 19:56-0500 SaO2% (BldA) [Mass fraction] 100 % Leonarda Boykin MD Work Phone: [facility] 07-28-2024 19:56-0500 Systolic blood pressure 132 mm[Hg] Leonarda Boykin MD Work Phone: [facility] 07-07-2024 10:46-0500 Body height 160 cm Leonarda Boykin MD Work Phone: [facility] 07-07-2024 10:46-0500 Body mass index (BMI) [Ratio] 17.3 kg/m2 Leonarda Boykin MD Work Phone: [facility] 07-07-2024 10:46-0500 Body temperature 97.11 [degF] Leonarda Boykin MD Work Phone: [facility] 07-07-2024 10:46-0500 Body weight 44.3 kg Leonarda Boykin MD Work Phone: [facility] 07-07-2024 10:46-0500 Diastolic blood pressure 68 mm[Hg] Leonarda Boykin MD Work Phone: [facility] 07-07-2024 10:46-0500 Heart rate 95 /min Leonarda Boykin MD Work Phone: [facility] 07-07-2024 10:46-0500 SaO2% (BldA) [Mass fraction] 100 % Leonarda Boykin MD Work Phone: [facility] 12-23-2024 10:46-0500 Systolic blood pressure 116 mm[Hg] Leonarda Boykin MD Work Phone: [facility] 07-05-2024 10:30-0500 Body mass index (BMI) [Ratio] 17.65 kg/m2 Tapan Merchant MD Work Phone: [facility] 07-05-2024 10:30-0500 Body temperature 97.7 [degF] Tapan Merchant MD Work Phone: [facility] 07-05-2024 10:30-0500 Body weight 45.2 kg Tapan Merchant MD Work Phone: [facility] 07-05-2024 10:30-0500 Diastolic blood pressure 82 mm[Hg] Tapan Merchant MD Work Phone: [facility] 07-05-2024 10:30-0500 Heart rate 82 /min Tapan Merchant MD Work Phone: [facility] 07-05-2024 10:30-0500 Respiratory rate 20 /min Tapan Merchant MD Work Phone: [facility] 07-05-2024 10:30-0500 SaO2% (BldA) [Mass fraction] 99 % Tapan Merchant MD Work Phone: [facility] 07-05-2024 10:30-0500 Systolic blood pressure 120 mm[Hg] Tapan Merchant MD Work Phone: [facility] 06-05-2024 09:55-0500 Diastolic blood pressure 78 mm[Hg] Carlotta Archer MD Work Phone: [facility] 06-05-2024 09:55-0500 Heart rate 88 /min Carlotta Archer MD Work Phone: [facility] 06-05-2024 09:55-0500 Respiratory rate 16 /min Carlotta Archer MD Work Phone: [facility] 06-05-2024 09:55-0500 SaO2% (BldA) [Mass fraction] 100 % Carlotta Archer MD Work Phone: [facility] 06-05-2024 09:55-0500 Systolic blood pressure 113 mm[Hg] Carlotta Archer MD Work Phone: [facility] 03-05-2024 08:09-0400 Body mass index (BMI) [Ratio] 17.61 kg/m2 Carlotta Archer MD Work Phone: [facility] 03-05-2024 08:09-0400 Body weight 45.1 kg Carlotta Archer MD Work Phone: [facility] 03-05-2024 08:09-0400 Diastolic blood pressure 74 mm[Hg] Carlotta Archer MD Work Phone: [facility] 03-05-2024 08:09-0400 Heart rate 82 /min Carlotta Archer MD Work Phone: [facility] 03-05-2024 08:09-0400 Respiratory rate 16 /min Carlotta Archer MD Work Phone: [facility] 03-05-2024 08:09-0400 SaO2% (BldA) [Mass fraction] 99 % Carlotta Archer MD Work Phone: [facility] 03-05-2024 08:09-0400 Systolic blood pressure 107 mm[Hg] Carlotta Archer MD Work Phone: [facility] 01-22-2024 15:42-0400 Body height 160 cm Michael Flynn MD Work Phone: [facility] 01-22-2024 15:42-0400 Body mass index (BMI) [Ratio] 17.93 kg/m2 Michael Flynn MD Work Phone: [facility] 01-22-2024 15:42-0400 Body temperature 98.1 [degF] Michael Flynn MD Work Phone: [facility] 01-22-2024 15:42-0400 Body weight 45.9 kg Michael Flynn MD Work Phone: [facility] 01-22-2024 15:42-0400 Diastolic blood pressure 77 mm[Hg] Michael Flynn MD Work Phone: [facility] 01-22-2024 15:42-0400 Heart rate 86 /min Michael Flynn MD Work Phone: [facility] 01-22-2024 15:42-0400 Respiratory rate 16 /min Michael Flynn MD Work Phone: [facility] 01-22-2024 15:42-0400 SaO2% (BldA) [Mass fraction] 99 % Michael Flynn MD Work Phone: [facility] 01-22-2024 15:42-0400 Systolic blood pressure 112 mm[Hg] Michael Flynn MD Work Phone: [facility] 12-28-2023 10:39-0400 Body height 160 cm Michael Flynn MD Work Phone: [facility] 12-28-2023 10:39-0400 Body mass index (BMI) [Ratio] 17.81 kg/m2 Micheal Flynn MD Work Phone: [facility] 12-28-2023 10:39-0400 Body temperature 98.01 [degF] Michael Flynn MD Work Phone: [facility] 12-28-2023 10:39-0400 Body weight 45.6 kg Michael Flynn MD Work Phone: [facility] 12-28-2023 10:39-0400 Diastolic blood pressure 75 mm[Hg] Michael Flynn MD Work Phone: [facility] 12-28-2023 10:39-0400 Heart rate 92 /min Michael Flynn MD Work Phone: [facility] 12-28-2023 10:39-0400 Respiratory rate 16 /min Michael Flynn MD Work Phone: [facility] 12-28-2023 10:39-0400 SaO2% (BldA) [Mass fraction] 98 % Michael Flynn MD Work Phone: [facility] 12-28-2023 10:39-0400 Systolic blood pressure 107 mm[Hg] Michael Flynn MD Work Phone: [facility] 12-17-2023 09:11-0400 Diastolic blood pressure 75 mm[Hg] Hortencia Love DO Work Phone: [facility] Comment on above: SIMONA BP 12-17-2023 09:11-0400 Systolic blood pressure 112 mm[Hg] Hortencia Ivan DO Work Phone: [facility] Comment on above: SIMONA BP 12-17-2023 09:05-0400 Body mass index (BMI) [Ratio] 17.56 kg/m2 Hortenciaoj Patricios DO Work Phone: [facility] 12-17-2023 09:05-0400 Body weight 46.4 kg Hortenciaoj Patricios DO Work Phone: [facility] 12-17-2023 09:05-0400 Heart rate 88 /min Hortenciaoj Patricios DO Work Phone: [facility] 11-20-2023 15:00-0400 Heart rate 72 /min Awilda Darby PT Work Phone: [facility] 11-13-2023 12:12-0400 Body mass index (BMI) [Ratio] 18.24 kg/m2 Daniel Whatley PLASTERER ROUGH.DEVELOPMENT CONSULTANT Work Phone: [facility] 11-13-2023 12:12-0400 Body temperature 97.9 [degF] Daniel Whatley PLASTERER ROUGH.DEVELOPMENT CONSULTANT Work Phone: [facility] 11-13-2023 12:12-0400 Body weight 48.2 kg Daniel Whatley PLASTERER ROUGH.DEVELOPMENT CONSULTANT Work Phone: [facility] 11-13-2023 12:12-0400 Diastolic blood pressure 68 mm[Hg] Daniel Whatley PLASTERER ROUGH.DEVELOPMENT CONSULTANT Work Phone: [facility] 11-13-2023 12:12-0400 Heart rate 72 /min Daniel Whatley PLASTERER ROUGH.DEVELOPMENT CONSULTANT Work Phone: [facility] 11-13-2023 12:12-0400 Respiratory rate 16 /min Daniel Whatley PLASTERER ROUGH.DEVELOPMENT CONSULTANT Work Phone: [facility] 11-13-2023 12:12-0400 Systolic blood pressure 102 mm[Hg] Daniel Whatley PLASTERER ROUGH.DEVELOPMENT CONSULTANT Work Phone: [facility] 10-15-2023 10:00-0400 Body weight 47.6 kg Nhung Mullernar PLASTERER ROUGH.DEVELOPMENT CONSULTANT Work Phone: [facility] 10-15-2023 10:00-0400 Diastolic blood pressure 67 mm[Hg] Nhung Keri PLASTERER ROUGH.DEVELOPMENT CONSULTANT Work Phone: [facility] 10-15-2023 10:00-0400 Heart rate 90 /min Nhung Mullernar PLASTERER ROUGH.DEVELOPMENT CONSULTANT Work Phone: [facility] 10-15-2023 10:00-0400 Systolic blood pressure 102 mm[Hg] Nhung Mullernar PLASTERER ROUGH.DEVELOPMENT CONSULTANT Work Phone: [facility] 05-21-2023 11:18-0500 Body weight 41.91 kg Hortencia Ivan DO Work Phone: [facility] 05-21-2023 11:18-0500 Diastolic blood pressure 73 mm[Hg] Hortencia Ivan DO Work Phone: [facility] 05-21-2023 11:18-0500 Heart rate 87 /min Hortencia Ivan DO Work Phone: [facility] 05-21-2023 11:18-0500 Systolic blood pressure 116 mm[Hg] Hortencia Ivan DO Work Phone: [facility] 05-07-2023 09:12-0400 Diastolic blood pressure 87 mm[Hg] Hortencia Ivan DO Work Phone: [facility] 05-07-2023 09:12-0400 Systolic blood pressure 147 mm[Hg] Hortencia Ivan DO Work Phone: [facility] 05-07-2023 09:06-0400 Body weight 42.91 kg Hortencia Ivan DO Work Phone: [facility] 05-07-2023 09:06-0400 Heart rate 96 /min Hortencia Ivan DO Work Phone: [facility] 01-08-2023 12:19-0400 Body weight 45.5 kg Atiya Holly MD Work Phone: [facility] 01-08-2023 12:19-0400 Diastolic blood pressure 93 mm[Hg] Atiya Holly MD Work Phone: [facility] 01-08-2023 12:19-0400 Heart rate 95 /min Atiya Holly MD Work Phone: [facility] 01-08-2023 12:19-0400 Systolic blood pressure 140 mm[Hg] Atiya Holly MD Work Phone: [facility] 06-13-2022 11:04-0500 Body weight 44.45 kg Hortencia Ivan DO Work Phone: [facility] 06-13-2022 11:04-0500 Diastolic blood pressure 82 mm[Hg] Hortencia Ivan DO Work Phone: [facility] 06-13-2022 11:04-0500 Heart rate 88 /min Hortencia Ivan DO Work Phone: [facility] 06-13-2022 11:04-0500 SaO2% (BldA) [Mass fraction] 100 % Hortencia Ivan DO Work Phone: [facility] 06-13-2022 11:04-0500 Systolic blood pressure 138 mm[Hg] Hortencia Ivan DO Work Phone: [facility] 01-11-2022 10:07-0400 Body temperature 97.9 [degF] Tapan Merchant MD Work Phone: [facility] 01-11-2022 10:07-0400 Body weight 44.86 kg Tapan Merchant MD Work Phone: [facility] 01-11-2022 10:07-0400 Diastolic blood pressure 80 mm[Hg] Tapan Merchant MD Work Phone: [facility] 01-11-2022 10:07-0400 Heart rate 87 /min Tapan Merchant MD Work Phone: [facility] 01-11-2022 10:07-0400 Respiratory rate 21 /min Tapan Merchant MD Work Phone: [facility] 01-11-2022 10:07-0400 SaO2% (BldA) [Mass fraction] 99 % Tapan Merchant MD Work Phone: [facility] 01-11-2022 10:07-0400 Systolic blood pressure 130 mm[Hg] Tapan Merchant MD Work Phone: [facility] Encounters Encounter Date Encounter Type Care Provider Facility Start: 03-05-2025 End: 03-05-2025 Emergency department patient visit NO ASSIGNED PCP GENERIC PROVIDER [facility] Comment on above: Periorbital ecchymos is of right eye, initial encounter (Primary Dx) Start: 03-05-2025 End: 03-05-2025 ambulatory [facility] Facility:[facility] Start: 03-03-2025 End: 03-03-2025 ambulatory Leonarda [facility] [place] Start: 02-27-2025 ambulatory [facility] Facility:[facility] Start: 02-23-2025 End: 02-23-2025 ambulatory [facility] Facility:[facility] Start: 02-09-2025 End: 02-10-2025 Follow-up encounter Leonarda Boykin MD Work Phone: [facility] [place] Comment on above: Results Start: 02-04-2025 ambulatory LEONARDA [facility] Facility:[facility] Start: 02-04-2025 End: 02-04-2025 Subsequent hospital visit by physician Javid [facility] Work Phone: Radiology Comment on above: Right hip pain [M25. 551] Start: 02-04-2025 End: 02-04-2025 Office outpatient visit 25 minutes Leonarda Boykin MD Work Phone: [facility] Comment on above: Right hip pain (Prim jd Dx); Vertigo; Tendinopathy of right gluteus medius Start: 02-04-2025 End: 02-04-2025 ambulatory LEONARDA BOYKIN Facility:[facility] Start: 12-29-2024 End: 12-30-2024 Telephone encounter Leonarda Boykin MD Work Phone: [facility] Comment on above: Question Start: 12-23-2024 End: 12-23-2024 Office outpatient visit 25 minutes Leonarda Boykin MD Work Phone: [facility] Comment on above: Cervical stenosis of spinal canal (Primary Dx); Lumbar spondylolysis; Left hip pain Start: 12-23-2024 End: 12-23-2024 ambulatory LEONARDA BOYKIN Facility:[facility] Start: 12-17-2024 End: 12-17-2024 ambulatory Leonarda Boykin Facility:[facility] Start: 12-08-2024 End: 12-08-2024 Emergency department patient visit Leonarda Boykin Facility:[facility] Start: 11-28-2024 End: 11-28-2024 ambulatory No Primary Care Physician Facility:[facility] Start: 11-25-2024 End: 11-25-2024 ambulatory Davidson Mack Facility:[facility] Start: 11-19-2024 ambulatory No Primary Car e Physician Facility:[facility] Start: 11-17-2024 End: 11-18-2024 Telephone encounter Leonarda Boykin MD Work Phone: [facility] Comment on above: Orders; Consult (Gas tro provider) Start: 10-31-2024 End: 10-31-2024 ambulatory No Primary Care Physician Facility:[facility] Start: 10-23-2024 End: 10-23-2024 ambulatory DANYELL LEBRON Facility:[facility] Start: 10-03-2024 End: 10-03-2024 ambulatory LEONARDA BOYKIN Facility:[facility] Start: 10-03-2024 End: 10-03-2024 Office outpatient visit 25 minutes Leonarda Boykin MD Work Phone: Family [facility] Comment on above: Lumbar spondylolysis (Primary Dx); Myalgias; Venous congestion; Cervical stenosis of spinal canal Start: 09-24-2024 End: 09-24-2024 ambulatory LEONARDA [facility] Facility:[facility] Start: 09-24-2024 End: 09-24-2024 Patient encounter procedure Donna Mcneil Work Phone: Vascular Medicine Comment on above: Tingling in extremit ies (Primary Dx); Anxiety about health Start: 09-16-2024 End: 09-16-2024 ambulatory [facility] Facility:[facility] Start: 09-16-2024 End: 09-16-2024 Patient encounter procedure Shi Montenegro Work Phone: Podiatry Comment on above: Porokeratosis (Prima ry Dx); Raynaud's disease without gangrene Start: 09-15-2024 End: 09-15-2024 Telephone encounter Carlotta Archer MD Work Phone: [facility] [place] Comment on above: Patient Update (Reha b evaluation ) Start: 09-09-2024 End: 09-09-2024 ambulatory [facility] Facility:[facility] Start: 09-09-2024 End: 09-09-2024 Office outpatient visit 15 minutes Katerin Ellis APRN.CNP Work Phone: [facility] Comment on above: Bacterial sinusitis (Primary Dx); Acute otitis media, left; Oral thrush Start: 09-04-2024 End: 09-04-2024 ambulatory [facility] Facility:[facility] Start: 09-04-2024 End: 09-04-2024 Patient encounter procedure Carlotta Archer MD Work Phone: Neurology Comment on above: Myalgias Start: 09-03-2024 End: 09-05-2024 Telephone encounter Leonarda Boykin MD Work Phone: Family [facility] Comment on above: Results Start: 08-25-2024 End: 08-25-2024 Follow-up encounter Michael Flynn MD Work Phone: [facility] Start: 08-25-2024 End: 08-25-2024 Patient encounter procedure Leonarda Boykin MD Work Phone: [facility] Comment on above: Myalgias (Primary Dx ); Cold intolerance Start: 08-25-2024 End: 08-25-2024 ambulatory Michael Flynn MD Work Phone: [facility] Comment on above: Medication Problem Start: 08-20-2024 End: 08-20-2024 Emergency department patient visit MICHAEL FLYNN Facility:[facility] Start: 08-16-2024 End: 08-16-2024 Orders Only Michael Flynn MD Work Phone: [facility] Comment on above: Raynaud's disease wi thout gangrene (Primary Dx) Start: 08-11-2024 End: 08-16-2024 Telephone encounter Michael Flynn MD Work Phone: [facility] Comment on above: Returning Patient's Call Start: 08-08-2024 End: 08-08-2024 ambulatory MICHAEL FLYNN Facility:[facility] Start: 08-08-2024 End: 08-08-2024 Office outpatient visit 25 minutes Michael Flynn MD Work Phone: [facility] Comment on above: Raynaud's disease wi thout gangrene (Primary Dx); Primary hypertension; Pain in both feet Start: 07-28-2024 End: 07-28-2024 Patient encounter procedure Leonarda Boykin MD Work Phone: [facility] Comment on above: Primary hypertension (Primary Dx); Raynaud's disease without gangrene Start: 07-28-2024 End: 07-28-2024 ambulatory LEONARDA BOYKIN Facility:[facility] Start: 07-15-2024 End: 07-15-2024 Telephone encounter Michael Flynn MD Work Phone: [facility] Comment on above: Results Start: 07-10-2024 End: 07-22-2024 Telephone encounter Michael Flynn MD Work Phone: [facility] [place] Comment on above: Patient Question Start: 07-07-2024 End: 07-07-2024 ambulatory LEONARDA BOYKIN Facility:[facility] Start: 07-07-2024 End: 07-07-2024 ambulatory LEONARDA HUMPHREYSDAIJA Facility:[facility] Start: 07-07-2024 End: 07-07-2024 Patient encounter procedure Leonarda Boykin MD Work Phone: [facility] [place] Comment on above: Raynaud disease with out gangrene (Primary Dx); Hypokalemia Start: 07-05-2024 End: 07-05-2024 ambulatory MICHAEL FLYNN Facility:[facility] Start: 07-05-2024 End: 07-05-2024 Office outpatient visit 25 minutes Tapan Merchant MD Work Phone: [facility] Comment on above: Chilblains, initial encounter (Primary Dx) Start: 06-25-2024 End: 06-25-2024 ambulatory MICHAEL FLYNN Facility:[facility] Start: 06-25-2024 End: 06-25-2024 Patient encounter procedure Starr Haines MD Work Phone: Ophthalmology Comment on above: Dry eye syndrome of bilateral lacrimal glands (Primary Dx); Meibomian gland dysfunction (MGD) of upper and lower lids of both eyes; Eye pain, left Start: 06-05-2024 End: 06-05-2024 ambulatory MICHAEL FLYNN Facility:[facility] Start: 06-05-2024 End: 06-05-2024 Office outpatient visit 25 minutes Carlotta Archer MD Work Phone: Neurology Comment on above: Chronic daily headac he (Primary Dx) Start: 04-23-2024 End: 04-28-2024 ambulatory Michael Flynn MD Work Phone: Internal Medicine [place] [id number] Start: 04-23-2024 End: 04-23-2024 Patient encounter procedure Starr Haines MD Work Phone: Ophthalmology Comment on above: Dry eye syndrome of bilateral lacrimal glands (Primary Dx); Meibomian gland dysfunction (MGD) of upper and lower lids of both eyes; Eye pain, left Start: 04-11-2024 End: 04-11-2024 ambulatory Pierre Montgomery PT Work Phone: [facility] Comment on above: Pain in left wrist ( Primary Dx); Chronic left shoulder pain Start: 03-25-2024 End: 03-25-2024 ambulatory Pierre Montgomery PT Work Phone: [facility] Comment on above: Pain in left wrist ( Primary Dx); Chronic left shoulder pain Start: 03-18-2024 End: 03-18-2024 ambulatory Pierre Montgomery PT Work Phone: [facility] Comment on above: Pain in left wrist ( Primary Dx); Chronic left shoulder pain Start: 03-11-2024 End: 03-11-2024 ambulatory Pierre Montgomery PT Work Phone: [facility] Comment on above: Pain in left wrist ( Primary Dx); Chronic left shoulder pain Start: 03-10-2024 End: 03-10-2024 [facility] MICHAEL FLYNN Facility:[facility] Start: 03-05-2024 End: [facility] Start: 03-05-2024 End: 03-05-2024 Office outpatient visit 40 minutes Carlotta Archer MD Work Phone: Neurology Comment on above: Chronic daily headac he (Primary Dx); Neck pain Start: 03-03-2024 End: 03-28-2024 Telephone encounter Starr Haines MD Work Phone: [facility] Comment on above: Insurance Authorizat ion (Xdem[employer]) Start: 02-27-2024 End: 02-27-[address] [facility] Facility:[facility] Start: 02-27-2024 End: 02-27-2024 Patient encounter procedure Starr Haines MD Work Phone: Ophthalmology Comment on above: Dry eye syndrome of bilateral lacrimal glands (Primary Dx); Meibomian gland dysfunction (MGD) of upper and lower lids of both eyes; Eye pain, left Start: 02-19-2024 End: 02-19-2024 ambulatory Pierre Montgomery PT Work Phone: [facility] Comment on above: Pain in left wrist ( Primary Dx); Chronic left shoulder pain Start: 02-18-2024 End: 02-18-2024 ambulatory RAJEEV HODGE Facility:[facility] Start: 02-18-2024 End: 02-18-2024 Patient encounter procedure Rajeev Hodge MD Work Phone: Pain Management Comment on above: Myofascial pain synd endy, cervical (Primary Dx); Spasm of cervical paraspinous muscle Start: 02-12-2024 End: 02-12-2024 ambulatory Pierre Montgomery PT Work Phone: [facility] Comment on above: Acute pain of right shoulder (Primary Dx) Start: 02-07-2024 Refill Michael Dyer Work Phone: [facility] Comment on above: Refill Request Start: 01-29-2024 End: 01-29-2024 ambulatory Pierre Montgomery PT Work Phone: [facility] Comment on above: Acute pain of right shoulder (Primary Dx) Start: 01-22-2024 End: 01-22-2024 Office outpatient visit 25 minutes Michael Flynn MD Work Phone: [facility] Comment on above: Cervicogenic headach e (Primary Dx); Left facial numbness Start: 01-14-2024 End: 01-15-2024 ambulatory MICHAEL FLYNN Facility:[facility] Start: 01-01-2024 Telephone encounter Michael Rodriguez rn, MD Work Phone: [facility] Start: 12-31-2023 End: 12-31-2023 ambulatory Pierre Montgomery PT Work Phone: [facility] Comment on above: Acute pain of right shoulder (Primary Dx) Start: 12-28-2023 End: 12-28-2023 ambulatory MICHAEL FLYNN Facility:[facility] Start: 12-28-2023 End: 12-28-2023 Office outpatient visit 25 minutes Michael Flynn MD Work Phone: [facility] [place] Comment on above: Left facial numbness (Primary Dx); New daily persistent headache; Vitamin B12 deficiency; Severe episode of recurrent major depressive disorder, without psychotic features (HCC); Attention deficit hyperactivity disorder (ADHD), unspecified ADHD type; Primary hypertension Start: 12-28-2023 End: 12-28-2023 Patient encounter procedure Shi Henderson MD Work Phone: Otolaryngology Comment on above: Otalgia, bilateral ( Primary Dx); Facial paresthesia; Headaches; Sore throat Start: 12-17-2023 End: 12-17-2023 Office outpatient visit 25 minutes Hortencia Love DO Work Phone: Internal Medicine [place] [id number] Comment on above: Facial paresthesia ( Primary Dx); New onset of headaches after age 50; Eye pain, left; Neuralgic facial pain; Severe episode of recurrent major depressive disorder, without psychotic features (HCC); Attention deficit hyperactivity disorder (ADHD), unspecified ADHD type; Primary hypertension Start: 12-13-2023 End: 12-13-2023 ambulatory Pierre Montgomery PT Work Phone: [facility] Comment on above: Acute pain of right shoulder (Primary Dx) Start: 12-03-2023 End: 12-03-2023 ambulatory Krista Boston CONCRETE SCULPTOR Work Phone: [facility] Comment on above: Acute pain of right shoulder (Primary Dx) Start: 11-23-2023 End: 11-23-2023 Patient encounter procedure Isabel Menjivar MD Work Phone: Dermatology Comment on above: Skin exam, screening for cancer (Primary Dx); Lepe angioma; Lentigines; Multiple benign nevi; Seborrheic keratoses; Dysesthesia of scalp; Rash and nonspecific skin eruption; Actinic keratoses Start: 11-20-2023 End: 11-20-2023 ambulatory Awilda Darby PT Work Phone: [facility] Comment on above: Acute pain of right shoulder (Primary Dx); Impingement of right shoulder Start: 11-20-2023 End: 11-20-2023 Office outpatient new 30 minutes Juliane Denise PA-C Work Phone: [employer] Comment on above: Impingement of right shoulder (Primary Dx) Start: 11-13-2023 End: 11-13-2023 Patient encounter procedure Daniel Whatley PLASTERER ROUGH.DEVELOPMENT CONSULTANT Work Phone: [facility] Comment on above: Skin lesion (Primary Dx) Start: 10-15-2023 End: 10-15-2023 Patient encounter procedure Nhung Saavedra PLASTERER ROUGH.DEVELOPMENT CONSULTANT Work Phone: [facility] [place] Comment on above: Facial paresthesia ( Primary Dx); Benign essential HTN Start: 06-08-2023 End: 06-08-2023 Subsequent hospital visit by physician Javid [facility] Duarte Simental Work Phone: Radiology Comment on above: Weight loss [R63.4] Start: 06-06-2023 Telephone encounter Hortencia veliz DO Work Phone: [facility] [place] Comment on above: Patient Update Start: 05-22-2023 Telephone encounter Hortencia veliz DO Work Phone: [facility] [place] Start: 05-21-2023 End: 05-21-2023 Office outpatient visit 25 minutes Hortencia Love DO Work Phone: [facility] [place] Comment on above: Acute cough (Primary Dx); Weight loss; Dry scalp Start: 05-08-2023 Telephone encounter Hortencia veliz DO Work Phone: [facility] [place] Start: 05-07-2023 End: 05-07-2023 Office outpatient visit 25 minutes Hortencia Love DO Work Phone: [facility] [place] Comment on above: Encounter for immuni zation (Primary Dx); Severe episode of recurrent major depressive disorder, without psychotic features (HCC); Unspecified essential hypertension; Therapeutic drug monitoring; Hyperkalemia Start: 04-16-2023 End: 04-16-2023 Nursing evaluation of patient and report Nurse Pod B Work Phone: [facility] [place] Comment on above: Need for vaccination (Primary Dx) Start: 04-13-2023 Telephone encounter Atiya Holly MD Work Phone: [facility] [place] Comment on above: Results Start: 03-07-2023 ambulatory Hortencia cain DO Work Phone: [facility] [place] Start: 01-08-2023 End: 01-08-2023 Patient encounter procedure Atiya Holly MD Work Phone: [facility] [place] Comment on above: Elevated BP without diagnosis of hypertension (Primary Dx); Screening for colon cancer; Attention deficit hyperactivity disorder (ADHD), unspecified ADHD type Start: 10-24-2022 Telephone encounter Patti Ocasio December.DEVELOPMENT CONSULTANT Work Phone: [facility] [place] Comment on above: Insurance Authorizat ion Start: 10-10-2022 Telephone encounter Patti Ocasio December.DEVELOPMENT CONSULTANT Work Phone: Dermatology Comment on above: Results Start: 10-09-2022 End: 10-09-2022 Patient encounter procedure Patti Ocasio December.DEVELOPMENT CONSULTANT Work Phone: Dermatology Comment on above: Multiple benign nevi (Primary Dx); Seborrheic keratosis; Neoplasm of unspecified behavior of bone, soft tissue, and skin; Lentigines; Angioma of skin Start: 06-20-2022 Telephone encounter Hortencia veliz DO Work Phone: [facility], [place] Comment on above: Results Start: 06-13-2022 End: 06-13-2022 Office outpatient visit 25 minutes Hortencia Love DO Work Phone: [facility], [place] Comment on above: Severe episode of re current major depressive disorder, without psychotic features (HCC) (Primary Dx); Skin lesion; Change of skin color; Screening cholesterol level Start: 04-11-2022 End: 04-11-2022 Nursing evaluation of patient and report Mi Nurse Work Phone: [facility] Comment on above: Need for vaccination (Primary Dx) Start: 04-05-2022 ambulatory Hortencia cain DO Work Phone: Internal Medicine [facility] [place] Start: 01-11-2022 End: 01-11-2022 Subsequent hospital visit by physician [facility] [place] Work Phone: Radiology Comment on above: Acute wrist pain, ri ght [M25.531] Start: 01-11-2022 End: 01-11-2022 Patient encounter procedure Tapan Merchant MD Work Phone: [facility] Comment on above: Acute wrist pain, ri ght (Primary Dx); Acute right ankle pain Start: 11-29-2021 End: 11-29-2021 Nursing evaluation of patient and report Mi Nurse Work Phone: Family Medicine [place] Comment on above: Need for vaccination (Primary Dx) Start: 01-26-2021 End: 01-26-2021 Subsequent hospital visit by physician [facility] [place] Work Phone: Radiology Comment on above: Suspected COVID-19 v irus infection [Z20.822] Procedures Date Procedure Procedure Detail Performing Clinician Start: 03-05-2025 Basic metabolic pane l calcium total Gracie Farfan PA-C Work Phone: Start: 06-08-2023 Radiologic exam ches t 2 views Hortencia Love DO Work Phone: Start: 05-21-2023 COVID & INFLUENZA A/ B & RSV NAAT, ROUTINE Hortencia Love DO Work Phone: Start: 05-21-2023 Iadna respiratry pro be & rev trnscr 3-5 targets Hortencia Love DO Work Phone: Start: 05-21-2023 Sars-cov-2 detection by dna/rna Hortenciaoj Love DO Work Phone: Start: 04-16-2023 [employer] COVI D-19 VACCINE ( SEASON) AGE 12+ YR Shanta White MD Work Phone: Start: 06-13-2022 Lipid 1996 panel - S mehrdad or Plasma Atiya Holly MD Work Phone: Start: 04-11-2022 [employer]ER[employer] COVI D-19 BIVALENT BOOSTER VACCINE, AGE 12+ YR Raymon Feliciano DO Work Phone: Start: 01-11-2022 Radex wrist complete minimum 3 views Tapan Merchant MD Work Phone: Start: 11-29-2021 PFIZER-BIONTECH COVI D-19 VACCINE, AGE 12+ YR (TREVIÑO TOP) Raymon Feliciano DO Work Phone: Start: 03-03-2021 Mammography Mi Nurse Work Phone: Start: 12-21-2020 Colonoscopy Mi Nurse Work Phone: Plan of Treatment Date Care Activity Detail Author Start: 05-08-2033 DTaP/Tdap/Td Vaccines (3 - Td or Tdap) DTaP/Tdap/Td Vaccines (3 - Td or Tdap) [facility] Start: 05-08-2033 Urine microalbumin profile DTaP,Tdap,Td Vaccine (3 - Td or Tdap) [facility] Start: 12-21-2030 Screening for malignant neoplasm of colon [facility] Start: 08-20-2027 Diabetes Screening Diabetes Screening [facility] Start: 07-07-2027 Diabetes Screening Diabetes Screening [facility] Start: 06-13-2027 Lipid 1996 panel - Serum or Plasma Lipid Screening [facility] Start: 06-13-2027 Lipid panel Lipid Screening [facility] Start: 06-13-2027 LIPID SCREEN LIPID SCREEN [facility] Start: 01-13-2027 Diabetes Screening Diabetes Screening [facility] Start: 06-08-2026 Diabetes Screening Diabetes Screening [facility] Start: 05-21-2026 Diabetes Screening Diabetes Screening [facility] Start: 05-08-2026 LIPID SCREEN LIPID SCREEN [facility] Start: 03-03-2026 HPV TESTING HPV TESTING [facility] Start: 03-03-2026 PAP TESTING PAP TESTING [facility] Start: 03-03-2026 Screening for malignant neoplasm of cervix [facility] Start: 02-04-2026 Annual PCP Team Chronic Disease Visit Annual PCP Team Chronic Disease Visit [facility] Start: 01-11-2026 COLOGUARD (FIT-DNA) COLOGUARD (FIT-DNA) [facility] Start: 01-11-2026 COLORECTAL CANCER SCREENING COLORECTAL CANCER SCREENING [facility] Start: 01-11-2026 Screening for malignant neoplasm of colon [facility] Start: 12-23-2025 Annual PCP Team Chronic Disease Visit Annual PCP Team Chronic Disease Visit [facility] Start: 12-23-2025 zzBP Controlled (<130/80) (Retired) zzBP Controlled (<130/80) (Retired) [facility] Start: 10-03-2025 Annual PCP Team Chronic Disease Visit Annual PCP Team Chronic Disease Visit [facility] Start: 10-03-2025 BP Controlled (<130/80) BP Controlled (<130/80) [facility] Start: 09-24-2025 BP Controlled (<130/80) BP Controlled (<130/80) [facility] Start: 09-09-2025 BP Controlled (<130/80) BP Controlled (<130/80) [facility] Start: 08-25-2025 Annual PCP Team Chronic Disease Visit Annual PCP Team Chronic Disease Visit [facility] Start: 08-08-2025 Annual PCP Team Chronic Disease Visit Annual PCP Team Chronic Disease Visit [facility] Start: 07-07-2025 Annual PCP Team Chronic Disease Visit Annual PCP Team Chronic Disease Visit [facility] Start: 07-07-2025 BP Controlled (<130/80) BP Controlled (<130/80) [facility] Start: 06-13-2025 DIABETES SCREEN DIABETES SCREEN [facility] Start: 06-13-2025 Diabetes Screening Diabetes Screening [facility] Start: 06-05-2025 BP Controlled (<130/80) BP Controlled (<130/80) [place] [facility] Start: 05-07-2025 End: 05-07-2025 Patient encounter procedure 05/07/2025 3:00 PM EDT Office Visit [facility] [place] [address] [address] Leonarda Boykin MD [address] [place] [address] Return in about 3 months (around 05/07/2025) for fu hip and vertigo - schedule with me.. [facility] [place] Comment on above: Return in about 3 months (around 025) for fu hip and vertigo - schedule with me.. Start: 03-18-2025 ambulatory Ambulatory Facility:[facility] Start: 03-16-2025 Influenza vaccination [facility] Start: 03-05-2025 BP Controlled (<130/80) BP Controlled (<130/80) [facility] Start: 02-04-2025 End: 02-04-2025 Patient encounter procedure 02/04/2025 9:00 AM EDT Office Visit [facility] [place] [address] [address] Leonarda Boykin MD [address] [place] [address] 6 week follow up-back and neck pain [facility] [place] Comment on above: 6 week follow up-back and neck pain Start: 01-21-2025 Annual PCP Team Chronic Disease Visit Annual PCP Team Chronic Disease Visit [facility] Start: 01-21-2025 BP Controlled (<130/80) BP Controlled (<130/80) [facility] Start: 01-05-2025 End: 01-05-2025 Patient encounter procedure 01/05/2025 2:00 PM EDT Office Visit Family Medicine [place] [address] [address] Leonarda Boykin MD [address] [place] [address] Return in about 3 months (around 01/03/2025) for fu low back an dneck jpain. [facility] [place] Comment on above: Return in about 3 months (around 01/04/20 25) for fu low back an dneck jpain. Start: 12-27-2024 Annual PCP Team Chronic Disease Visit Annual PCP Team Chronic Disease Visit [facility] Start: 12-27-2024 BP Controlled (<130/80) BP Controlled (<130/80) [facility] Start: 12-16-2024 Annual PCP Team Chronic Disease Visit Annual PCP Team Chronic Disease Visit [facility] Start: 12-16-2024 Anxiety Screening Anxiety Screening [facility] Start: 12-16-2024 BP Controlled (<130/80) BP Controlled (<130/80) [facility] Start: 12-10-2024 End: 12-10-2024 Patient encounter procedure 12/10/2024 11:00 AM EDT Office Visit Neurology [address] [address] Carlotta Archer MD [address] [place] [address] Return in about 3 months Neurology Comment on above: Return in about 3 months Start: 11-13-2024 Advance Directive Discussion Advance Directive Discussion [facility] Start: 11-13-2024 Screening for osteoporosis [facility] Start: 11-12-2024 BP Controlled (<130/80) BP Controlled (<130/80) [facility] Start: 10-14-2024 Annual PCP Team Chronic Disease Visit Annual PCP Team Chronic Disease Visit [facility] Start: 10-14-2024 BP Controlled (<130/80) BP Controlled (<130/80) [facility] Start: 10-14-2024 Medicare Annual Wellness Visit Medicare Annual Wellness Visit [facility] Start: 10-03-2024 End: 10-03-2024 Patient encounter procedure 10/03/2024 4:00 PM EDT Office Visit Family Medicine [place] [address] [address] Leonarda Boykin MD [address] [place] [address] 6w follow up appointment [facility] [place] Comment on above: 6w follow up appointment Start: 09-25-2024 End: 09-25-2024 Patient encounter procedure 09/25/2024 11:20 AM EDT Office Visit Internal Medicine [place] [address] [address] Michael Flynn MD [address] [place] [address] Physical [facility] [place] Comment on above: Physical Start: 09-24-2024 End: 09-24-2024 Patient encounter procedure 09/24/2024 9:00 AM EDT Office Visit Vascular Medicine [address] [place] [address] Donna Mcneil DO [address] [place] [address] Raynaud's disease without gangrene [I73.00] Vascular Medicine Comment on above: Raynaud's disease without gangrene [I73. 00] Start: 09-16-2024 End: 09-16-2024 Patient encounter procedure 09/16/2024 11:00 AM EST Office Visit Podiatry [address] [place] [address] Shi Montenegro [address] [id number] [facility] Comment on above: [facility] Start: 09-04-2024 End: 09-04-2024 Patient encounter procedure 09/04/2024 4:00 PM EST Office Visit Neurology [address] [phone] Carlotta Archer MD [address] [place], [place] [phone] Return in about 3 months (around 09/05/2024). Neurology Comment on above: Return in about 3 months (around 09/05/19). Start: 08-25-2024 End: 11-24-2024 Erythrocyte sedimentation rate [facility] Comment on above: Expected: 08/25/2024, Expires: Start: 08-25-2024 End: 11-24-2024 Rheumatoid factor [Units/volume] in Serum or Plasma [facility] Comment on above: Expected: 08/25/2024, Expires: Start: 08-25-2024 End: 11-24-2024 SYPHILIS TREPONEMAL W/REFLEX [facility] Work Phone: Comment on above: Expected: 08/25/2024, Expires: Start: 08-25-2024 End: 11-24-2024 Thyroxine (T4) free [Mass/volume] in Serum or Plasma [facility] Comment on above: Expected: 08/25/2024, Expires: Start: 08-25-2024 End: 08-25-2024 Patient encounter procedure 08/25/2024 9:00 AM EST Office Visit Vascular Surgery [address] [id number] Vascular Surgery Comment on above: [place] Start: 08-12-2024 End: 08-12-2024 Patient encounter procedure Ophthalmology Comment on above: 1 YR COMPLETE EYE EXAM / PT AWARE SHE WI LL HAVE TO PAY FOR EXAM 1 YR COMPLETE EYE EX AM / PT AWARE SHE WILL HAVE TO PAY FOR EXAM ( LVM to confirm appointment time change BP) Start: 07-28-2024 End: 07-28-2024 Patient encounter procedure 07/28/2024 7:40 PM EST Office Visit [facility] [place] [address] [address] Leonarda Boykin MD [address] [place] [address] [facility] Comment on above: Medication review Start: 07-15-2024 End: 07-15-2024 Patient encounter procedure 07/15/2024 3:00 PM EST Office Visit Internal Medicine [place] [address] [address] Michael Flynn MD [address] [place] [address] wellness [facility] [place] Comment on above: wellness Start: 07-07-2024 End: 10-06-2024 ANTI NEUTRO CYTO AB [facility] Comment on above: Expected: 07/07/2024, Expires: Start: 07-07-2024 End: 10-06-2024 C reactive protein [Mass/volume] in Serum or Plasma [facility] Work Phone: Comment on above: Expected: 07/07/2024, Expires: Start: 07-07-2024 End: 07-07-2024 Patient encounter procedure 07/07/2024 10:40 AM EST Office Visit [facility] [address] [address] Leonarda Boykin MD [address] [place], [place] [phone] f/up from [facility] Comment on above: f/up from [facility] Start: 06-25-2024 End: 06-25-2024 Patient encounter procedure 06/25/2024 9:30 AM EST Office Visit [facility] Ophthalmology [address] [place], [place] [id number] Starr Haines MD [address] [place] [address] 2 MTH F/U Ophthalmology Comment on above: 2 MTH F/U Start: 06-05-2024 End: 06-05-2024 Patient encounter procedure 06/05/2024 10:00 AM EST Office Visit Neurology [address] [phone] Carlotta Archer MD [address] [place], [place] [phone] 3 month follow up Neurology Comment on above: 3 month follow up Start: 05-08-2024 DIABETES SCREEN DIABETES SCREEN [facility] Start: 05-07-2024 Shingrix Vaccine (1 of 2) Shingrix Vaccine (1 of 2) [facility] Comment on above: Postponed from 11/13/2009 (Declined at t his time) Start: 04-23-2024 End: 04-23-2024 Patient encounter procedure 04/23/2024 1:45 PM EDT Office Visit [facility] Ophthalmology [address] [place], [place] [address] Starr Haines MD [address] [place] [address] 2 mo follow up Ophthalmology Comment on above: 2 mo follow up Start: 04-11-2024 End: 04-11-2024 ambulatory 04/11/2024 2:15 PM EDT OT/PT/Speech Visit [facility] [address] [place] [address] Pierre Montgomery, PT [address] [place] [address] Neck Pain [facility] Comment on above: Neck Pain Start: 04-01-2024 End: 04-01-2024 ambulatory 04/01/2024 3:00 PM EDT OT/PT/Speech Visit [facility] [address] [place] [address] Pierre Montgomery, PT [address] [place] [address] Pain in left wrist [M25.532] [facility] Comment on above: Pain in left wrist [M25.532] Start: 03-25-2024 End: 03-25-2024 ambulatory 03/25/2024 3:00 PM EDT OT/PT/Speech Visit [facility] [address] [place] [address] Pierre Montgomery, PT [address] [place] [address] Pain in left wrist [M25.532] [facility] Comment on above: Pain in left wrist [M25.532] Start: 03-18-2024 End: 03-18-2024 ambulatory 03/18/2024 3:00 PM EDT OT/PT/Speech Visit [facility] [address] [place] [address] Pierre Montgomery, PT [address] [place] [address] Pain in left wrist [M25.532] [facility] Comment on above: Pain in left wrist [M25.532] Start: 03-16-2024 COVID-19 Vaccine () COVID-19 Vaccine () [facility] Start: 03-16-2024 Covid-19 Vaccine () Covid-19 Vaccine () [facility] Start: 03-16-2024 Influenza vaccination [facility] Start: 03-11-2024 End: 03-11-2024 ambulatory 03/11/2024 3:45 PM EDT OT/PT/Speech Visit [facility] [address] [place], [place] [id number] Pierre Montgomery, PT [address] [place], [place] [address] Pain in left wrist [M25.532] [facility] Comment on above: Pain in left wrist [M25.532] Start: 03-05-2024 End: 06-04-2024 Methylmalonate [Moles/volume] in Serum or Plasma METHYLMALONIC ACID Lab Routine Chronic daily headache Expected: 03/05/2024, Expires: 06/04/2024 [facility] Work Phone: Comment on above: Expected: 03/05/2024, Expires: Start: 03-05-2024 End: 03-05-2024 Patient encounter procedure 03/05/2024 8:00 AM EDT Office Visit Neurology [address] [phone] Carlotta Archer MD [address] [place], [place] [phone] HEADACHES Neurology Comment on above: HEADACHES Start: 02-27-2024 End: 02-27-2024 Patient encounter procedure 02/27/2024 7:45 AM EDT Office Visit [facility] Ophthalmology [address] [place] [address] Starr Haines MD [address] [place] [address] Dry Eyes Ophthalmology Comment on above: Dry Eyes Start: 02-19-2024 End: 02-19-2024 ambulatory 02/19/2024 9:30 AM EDT OT/PT/Speech Visit [facility] [address] [place] [address] Pierre Montgomery, PT [address] [place], [place] [id number] M25.811 (ICD-10-CM) - Impingement of right shoulder [facility] Comment on above: M25.811 (ICD-10-CM) - Impingement of rig ht shoulder Start: 02-18-2024 End: 02-18-2024 Patient encounter procedure 02/18/2024 11:30 AM EDT Office Visit Pain Management [address] [address] Rajeev Hodge MD [address] [facility] [place] [address] cervical canal stenosis Pain Management Comment on above: cervical canal stenosis Start: 02-12-2024 End: 02-12-2024 ambulatory 02/12/2024 8:30 AM EDT OT/PT/Speech Visit [facility] [address] [place] [address] Pierre Montgomery, PT [address] [place], [place] [address] Shoulder Pain, Neck pain [facility] Comment on above: Shoulder Pain, Neck pain Start: 02-01-2024 End: 02-01-2024 Patient encounter procedure 02/01/2024 10:40 AM EDT Appointment Radiology [address] [place] [address] Facial paresthesia [R20.2]; New onset of headaches after age 50 [R51.9]; Eye pain, left [H57.12]; Neuralgic facial pain [G51.8] Radiology Comment on above: Facial paresthesia [R20.2]; New onset of headaches after age 50 [R51.9]; Eye pain, left [H57.12]; Neuralgic facial pain [G51.8] Start: 01-29-2024 End: 01-29-2024 ambulatory 01/29/2024 8:30 AM EDT OT/PT/Speech Visit [facility] [address] [place] [address] Pierre Montgomery, PT [address] [place] [address] M25.811 (ICD-10-CM) - Impingement of right shoulder [facility] Comment on above: M25.811 (ICD-10-CM) - Impingement of rig ht shoulder Start: 01-15-2024 End: 01-15-2024 ambulatory 01/15/2024 9:30 AM EDT OT/PT/Speech Visit [facility] [address] [place] [address] Pierre Montgomery, PT [address] [place] [address] M25.811 (ICD-10-CM) - Impingement of right shoulder [facility] Comment on above: M25.811 (ICD-10-CM) - Impingement of rig ht shoulder Start: 01-13-2024 Influenza [facility] Comment on above: Postponed from 03/16/2023 (Declined at t his time) Start: 12-31-2023 End: 12-31-2023 ambulatory 12/31/2023 8:30 AM EDT OT/PT/Speech Visit [facility] [address] [place] [address] Pierre Montgomery, PT [address] [place] [address] M25.811 (ICD-10-CM) - Impingement of right shoulder [facility] Comment on above: M25.811 (ICD-10-CM) - Impingement of rig ht shoulder Start: 12-28-2023 End: 09-13-2024 [employer] SCRN BL [facility] Work Phone: Comment on above: Expected: 12/28/2023, Expires: Start: 12-28-2023 End: 12-28-2023 Patient encounter procedure 12/28/2023 11:20 AM EDT Office Visit Internal Medicine [place] [address] [address] Michael Flynn MD [address] [place] [address] est care [facility] [place] Comment on above: est care Start: 12-28-2023 End: 12-28-2023 Patient encounter procedure 12/28/2023 9:15 AM EDT Office Visit Otolaryngology [address] [address] Shi Henderson MD [address] [address] Facial paresthesia [R20.2] Otolaryngology Comment on above: Facial paresthesia [R20.2] Start: 12-20-2023 End: 12-20-2023 ambulatory 12/20/2023 8:00 AM EDT OT/PT/Speech Visit [facility] [address] [place], [place] [phone] Krista Boston, CONCRETE SCULPTOR [address] [place], [place] [id number] M25.811 (ICD-10-CM) - Impingement of right shoulder [facility] Comment on above: M25.811 (ICD-10-CM) - Impingement of rig ht shoulder Start: 12-17-2023 End: 12-17-2023 Patient encounter procedure Internal Medicine [facility] Comment on above: Follow up Start: 12-13-2023 End: 12-13-2023 ambulatory 12/13/2023 2:00 PM EDT OT/PT/Speech Visit [facility] [address] [place] [address] Pierre Montgomery, PT [address] [place] [address] M25.811 (ICD-10-CM) - Impingement of right shoulder [facility] Comment on above: M25.811 (ICD-10-CM) - Impingement of rig ht shoulder Start: 11-23-2023 End: 11-23-2023 Patient encounter procedure 11/23/2023 8:20 AM EDT Office Visit Dermatology [address] [address] Isabel Menjivar MD [address] [place] [address] 2 spots on ankle Dermatology Comment on above: 2 spots on ankle Start: 11-16-2023 End: 11-16-2023 Patient encounter procedure 11/16/2023 10:00 AM EDT Office Visit Dermatology [address] [place] [address] Chaitanya Lewis PA-C [address] [place], [place] [phone] spot on ankle - order in review Dermatology Comment on above: spot on ankle - order in review Start: 06-13-2023 End: 06-06-2024 SHELBIE BY IFA WITH REFLEX SHELBIE BY IFA WITH REFLEX Lab Routine CRP elevated Weight loss Expected: 06/13/2023, Expires: 06/06/2024 [facility] Work Phone: Comment on above: Expected: 06/13/2023, Expires: 4 Start: 06-13-2023 End: 06-06-2024 C reactive protein [Mass/volume] in Serum or Plasma C-REACTIVE PROTEIN (CRP) Lab Routine CRP elevated Weight loss Expected: 06/13/2023, Expires: 06/06/2024 [facility] Work Phone: Comment on above: Expected: 06/13/2023, Expires: 4 Start: 06-13-2023 End: 06-06-2024 CBC W Auto Differential panel - Blood CBC + DIFF Lab Routine CRP elevated Weight loss Expected: 06/13/2023, Expires: 06/06/2024 [facility] Work Phone: Comment on above: Expected: 06/13/2023, Expires: 4 Start: 06-13-2023 End: 06-06-2024 Comprehensive metabolic 2000 panel - Serum or Plasma COMP METABOLIC PANEL Lab Routine CRP elevated Weight loss Expected: 06/13/2023, Expires: 06/06/2024 [facility] Work Phone: Comment on above: Expected: 06/13/2023, Expires: Start: 06-13-2023 End: 06-06-2024 Cyclic citrullinated peptide IgG Ab [Units/volume] in Serum or Plasma CCP ANTIBODY IGG Lab Routine CRP elevated Weight loss Expected: 06/13/2023, Expires: 06/06/2024 [facility] Work Phone: Comment on above: Expected: 06/13/2023, Expires: 4 Start: 06-13-2023 End: 06-06-2024 Erythrocyte sedimentation rate SED RATE WESTERGREN Lab Routine CRP elevated Weight loss Expected: 06/13/2023, Expires: 06/06/2024 [facility] Work Phone: Comment on above: Expected: 06/13/2023, Expires: 4 Start: 06-13-2023 End: 06-06-2024 Rheumatoid factor [Units/volume] in Serum or Plasma RHEUMATOID FACTOR BL Lab Routine CRP elevated Weight loss Expected: 06/13/2023, Expires: 06/06/2024 [facility] Work Phone: Comment on above: Expected: 06/13/2023, Expires: 4 Start: 06-06-2023 End: 09-05-2023 25-hydroxyvitamin D3 [Mass/volume] in Serum or Plasma VITAMIN D 25 HYDROXY Lab Routine CRP elevated Weight loss Vitamin D deficiency Expected: 06/06/2023, Expires: 09/05/2023 [facility] Work Phone: Comment on above: Expected: 06/06/2023, Expires: Start: 05-15-2023 End: 08-14-2023 Renal function 2000 panel - Serum or Plasma RENAL FUNCTION PANEL Lab Routine Hyperkalemia Therapeutic drug monitoring Unspecified essential hypertension Expected: 05/15/2023 (Approximate), Expires: 08/14/2023 [facility] Work Phone: Comment on above: Expected: 05/15/2023 (Approximate), Expi res: 08/14/2023 Start: 04-30-2023 Urine microalbumin profile [facility] Start: 03-16-2023 Influenza vaccination [facility] Start: 01-12-2023 Influenza vaccination INFLUENZA (#1) [facility] Comment on above: Postponed from 03/16/2022 (Declined at t his time) Start: 03-16-2022 Influenza vaccination [facility] Start: 03-03-2022 Mammography [facility] Start: 03-03-2022 Screening for malignant neoplasm of breast Mammogram Screening [facility] Start: 02-04-2022 COLORECTAL CANCER SCREENING COLORECTAL CANCER SCREENING [facility] Start: 02-04-2022 FECAL OCCULT BLOOD FECAL OCCULT BLOOD [facility] Start: 02-04-2022 Screening for malignant neoplasm of colon Fecal Occult Blood [facility] Start: 01-24-2022 COVID-19 VACCINE (5 - Booster for Pfizer series) COVID-19 VACCINE (5 - Booster for Pfizer series) [facility] Start: 12-21-2021 Colonoscopy COLONOSCOPY [facility] Start: 12-21-2021 Screening for malignant neoplasm of colon Colonoscopy [facility] Start: 2019 RSV Vaccine (1 - 1-dose 60+ series) RSV Vaccine (1 - 1-dose 60+ series) [facility] Start: 03-05-2018 Pneumococcal vaccination Pneumococcal Vaccine (2 of 2 - PCV) [facility] Start: 03-05-2018 Pneumococcal Vaccine: 50+ (2 of 2 - PCV) Pneumococcal Vaccine: 50+ (2 of 2 - PCV) [facility] Start: 11-13-2009 SHINGRIX VACCINE (1 of 2) SHINGRIX VACCINE (1 of 2) [facility] Start: 11-13-2009 Zoster Vaccines (1 of 2) Zoster Vaccines (1 of 2) [facility] Start: 11-13-2004 COLOGUARD (FIT-DNA) COLOGUARD (FIT-DNA) [facility] Start: 11-13-[address] COLONOGRAPHY [facility] Start: 11-13-2004 Screening for malignant neoplasm of colon [facility] Start: 11-13-2004 SIGMOIDOSCOPY SIGMOIDOSCOPY [facility] Start: 11-13-1980 Screening for malignant neoplasm of cervix [facility] Start: 11-13-1977 Anxiety Screening Anxiety Screening [facility] Start: 11-13-1977 BP Controlled (<130/80) BP Controlled (<130/80) [facility] in Start: 11-13-1960 MMR Vaccines (1 of 1 - Standard series) MMR Vaccines (1 of 1 - Standard series) [facility] Start: 1960 Lipid panel Lipid Panel [facility] Start: 1960 Screening for malignant neoplasm of colon [facility] COLOGUARD COLOGUARD Lab Ro utine Screening for colon cancer Ordered: 01/08/2023 [facility] Work Phone: Comment on above: Ordered: 01/08/2023 End: 05-23-2025 DBT Breast - bilateral screening LACHELLE SCREENING W ABRAHAM Radiology Routine Encounter for screening mammogram for breast cancer 1 Occurrences starting 04/23/2024 until 05/23/2025 [facility] Work Phone: Comment on above: 1 Occurrences starting 04/23/2024 until 05/23/2025 End: 04-05-2024 LACHELLE SCREENING LACHELLE SCREENING Radiology Routine Encounter for screening mammogram for breast cancer 1 Occurrences starting 03/07/2023 until 04/05/2024 [facility] Work Phone: Comment on above: 1 Occurrences starting 03/07/2023 until 04/05/2024 End: 06-19-2024 LACHELLE SCREENING LACHELLE SCREENING Radiology Routine Weight loss 1 Occurrences starting 05/21/2023 until 06/19/2024 [facility] Work Phone: Comment on above: 1 Occurrences starting 05/21/2023 until 06/19/2024 End: 01-15-2025 MR Brain WO and W contrast IV MRI BRAIN WO/W IVCON Radiology Routine Facial paresthesia New onset of headaches after age 50 Eye pain, left Neuralgic facial pain 1 Occurrences starting 12/17/2023 until 01/15/2025 [facility] Work Phone: Comment on above: 1 Occurrences starting 12/17/2023 until 01/15/2025 End: 06-25-2024 Radiologic exam chest 2 views XR CHEST 2V FRONTAL/LAT Radiology Routine Weight loss Acute cough 1 Occurrences starting 05/27/2023 until 06/25/2024 [facility] Work Phone: Comment on above: 1 Occurrences starting 05/27/2023 until 06/25/2024 End: 05-05-2023 Screening mammography bi 2-view breast inc cad LACHELLE SCREENING Radiology Routine Encounter for screening mammogram for breast cancer 1 Occurrences starting 04/05/2022 until 05/05/2023 [facility] Work Phone: Comment on above: 1 Occurrences starting 04/05/2022 until 05/05/2023 SURGICAL PATHOLOGY SURGICAL PATH OLOGY Lab Routine Neoplasm of unspecified behavior of bone, soft tissue, and skin 10/09/2022 2:43 PM EDT [facility] Work Phone: End: 08-08-2025 US.doppler Extremity arteries - bilateral for physiologic artery study PVR ANK PRESS [facility] Vascular Lab Routine Pain in both feet 1 Occurrences starting 08/08/2024 until 08/08/2025 [facility] Work Phone: Comment on above: 1 Occurrences starting 08/08/2024 until 08/08/2025 XR Pelvis and Hip - right AP and Lateral frog XR HIP GENERAL 3V PELV/AP/LAT RIGHT Radiology Routine Right hip pain 02/04/2025 12:23 PM EDT [facility] Work Phone: End: 03-06-2026 XR Pelvis and Hip - right AP and Lateral frog XR HIP GENERAL 3V PELV/AP/LAT RIGHT Radiology Routine Right hip pain 1 Occurrences starting 02/04/2025 until 03/06/2026 [facility] Work Phone: Comment on above: 1 Occurrences starting 02/04/2025 until 03/06/2026 [facility] Immunizations Immunization Date Immunization Notes Care Provider Joseline randle 05-08-2023 respiratory syncytia l virus (RSV) vaccine, bivalent (ABRYSVO) Hortencia Love DO Work Phone: [facility] 05-08-2023 tetanus toxoid, redu beth diphtheria toxoid, and acellular pertussis vaccine, adsorbed Hortencia Love DO Work Phone: [facility] 05-07-2023 diphtheria, tetanus toxoids and acellular pertussis vaccine, unspecified formulation Hortencia Love DO Work Phone: [facility] Work Phone: Comment on above: Inject 0.5 mL intram uscularly one time only for 1 dose. 05-07-2023 respiratory syncytia l virus RSV vaccine, PF, (ABRYSVO) 120 mcg/0.5 mL injection Hortencia Patricios DO Work Phone: [facility] Work Phone: Comment on above: Inject 0.5 mL intram uscularly one time only for 1 dose. 04-16-2023 COVID-19 vaccine, ag e 12+ yr, season (PFIZER-BIONTECH) Nurse B Work Phone: [facility] 04-11-2022 COVID-19 booster vac cine, age 12+ yr, bivalent (PFIZER-BIONTECH) Ga Nurse Work Phone: [facility] Work Phone: 11-29-2021 COVID-19 vaccine, ag e 12+ yr (PFIZER-BIONTECH - TREVIÑO TOP) Ga Nurse Work Phone: [facility] Work Phone: 10-06-2020 COVID-19 vaccine, ag e 12+ yr (PFIZER-BIONTECH - PURPLE TOP) Ga Nurse Work Phone: [facility] 09-15-2020 COVID-19 vaccine, ag e 12+ yr (PFIZER-BIONTECH - PURPLE TOP) Ga Nurse Work Phone: [facility] 03-05-2017 pneumococcal polysaccharide vaccine, 23 valent Ga Nurse Work Phone: [facility] 04-30-2013 tetanus toxoid, redu beth diphtheria toxoid, and acellular pertussis vaccine, adsorbed Ga Nurse Work Phone: [facility] Payers Date Payer Category Payer Medicare [id number] 2024 Medicare [id number] 2024 Self-pay 2024 Private Health Insurance AULTCAR E [id number] 2024 Unknown [employer] [place] [id number] 2024-Present [phone] [address] [place] [address] PPO [id number] 2024 Unknown [id number] 2022 Medicaid [id number] [address] [facility] MEDICAID [facility] [employer] MEDICAID [id number] 2021-Present [phone] [address] [place] [address] Medicaid [id number] 2014 Medicaid [id number] 1959 Unknown [id number] Unknown [id number] 462 Unknown [id number] 462 Unknown [id number] 462 Unknown [id number]. 462 Unknown [id number]. 462 Unknown [id number]. 462 Unknown [id number]. 462 Unknown [id number]. 462 Unknown [id number]. 462 Unknown [id number]. 462 Unknown [id number]. 462 Unknown [id number]. 462 Unknown [id number] 462 Unknown [id number] 462 Social History Date Type Detail Facility Start: 12-21-2020 End: 03-05-2024 Tobacco smoking status PAIS Ex-smoker [facility] History of tobacco use Cigarette Smoker [facility] Start: 12-21-2020 End: 07-29-2022 Cigarettes smoked current (pack per day) - Reported 0.5 [facility] Work Phone: Start: 12-21-2020 End: 03-05-2024 Tobacco use and exposure Smokeless tobacco non-user [facility] Start: 05-12-2021 End: 02-04-2025 Alcohol intake Current non-drinker of alcohol (finding) [facility] Start: 1960 Sex Assigned At Not on file [facility] Start: 12-27-2020 End: 06-13-2022 Exposure to SARS-CoV-2 (event) Not sure [facility] Work Phone: History of tobacco use Current smoker [facility] Start: 04-29-2021 End: 07-29-2022 Alcohol Use Disorder Identification Test - Consumption [AUDIT-C] [facility] Work Phone: Start: 03-05-2025 How often to you have a drink containing alcohol? Patient refused [facility] Work Phone: (I/We) worried wheth er (my/our) food would run out before (I/we) got money to buy more. DK or Refused [facility] Work Phone: Has the Companion Canine, Jovie, or wripl threatened to shut off services in your home in past 12Mo No [facility] (I/We) worried wheth er (my/our) food would run out before (I/we) got money to buy more. Never true [facility] Tobacco smoking stat us PAIS Tobacco smoking consumption unknown [facility] Work Phone: Goals Date Patient Goal Desired Activity /State Personal health goal Functional Status Date Assessment Result Facility 03-05-2025 [place] - suicide severity rating scale screener - recent [C-SSRS] [facility] Work Phone: 01-15-2024 Are you deaf, or do you have serious difficulty hearing No 01/15/2024 10:24 AM Evelia Valle LPN No [facility] 01-15-2024 Are you blind, or do you have serious difficulty seeing, even when wearing glasses No 01/15/2024 10:24 AM EDT Evelia Suarez LPN No [facility] 01-15-2024 Do you have serious difficulty walking or climbing stairs No 01/15/2024 10:24 AM EDT Evelia Suarez LPN No [facility] 01-15-2024 Do you have difficul ty dressing or bathing No 01/15/2024 10:24 AM EDT Evelia Suarez LPN No [facility] 01-15-2024 Because of a physica l, mental, or emotional condition, do you have difficulty doing errands alone such as visiting a physician's office or shopping No 01/15/2024 10:24 AM EDT Evelia Suarez LPN No [facility] Mental Status Date Assessment Result Facility 01-15-2024 Because of a physica l, mental, or emotional condition, do you have serious difficulty concentrating, remembering, or making decisions No 01/15/2024 10:24 AM EDT Evelia Suarez LPN No [facility] Clinical Notes 08-21-2016 to 02-09-2025 Telephone Encounter - Bienvenido Smith RN - 02/09/2025 7:06 PM EDTTelephone Encounter - Bienvenido Smith RN - 02/09/2025 7:06 PM EDTTelephone Encounter - La Nena Mack LPN - 02/09/2025 5:57 PM EDT Note Date & Type Note Facility 02-09-2025 Telephone encounter Note Patient advised of provider's message and verbalized understanding. Patient also requests refill of Hyzaar. Prescription was transferred to [facility] in [place]. She has enough medication to last until March 19, but will need refill sent to continue. [facility] 02-09-2025 Miscellaneous Notes Patient advised of provider's message and verbalized understanding. Patient also requests refill of Hyzaar. Prescription was transferred to [facility] in [place]. She has enough medication to last until Sanaz 4, but will need refill sent to continue. LM for patient to call the office for results. La Nena Makc LPN ----- Message from Leonarda Boykin MD sent at 02/09/2025 4:47 PM EDT ----- Xray is normal of the right hip. No significant arthritis. documented in this encounter [facility] 02-09-2025 Telephone encounter Note LM for patient to call the office for results. La Nena Mack LPN [facility] 02-09-2025 Telephone encounter Note ----- Message from Leonarda Boykin MD sent at 02/09/2025 4:47 PM EDT ----- Xray is normal of the right hip. No significant arthritis. [facility] 02-04-2025 History of Presen t illness Narrative Radiology Service Progress Note PATIENT NAME: Giovanna Nation DATE OF SERVICE: February 04, 2025 TIME: 3:46 PM PATIENT IDENTITY VERIFICATION COMPLETED USING TWO (2) IDENTIFIERS: Name and Date of confirmed by patient verbally. FALL SCREENING: Has the patient had 2 falls in the last year or 1 fall with injury or currently using an Ambulatory Assistive Device (Walker, Cane, Wheelchair, Crutches, etc.)? No PATIENT GENDER DATA: Assigned female at . status: : No status: NO. PATIENT RELEVANT IMPLANT DATA REVIEWED: Not Applicable PATIENT PRESENTS WITH AN IMPLANTABLE OR ATTACHED JAVA LEAD ENGINEER: Yes Efra Kurtis RADIOLOGY DEPARTMENT: General X-ray: Exam(s) Completed: Pelvis X-Ray: Pelvis with Hip Right PERIPHERAL IV DATA: Not applicable SIGNED BY: RT Wisam(Clem) February 04, 2025 3:46 PM documented in this encounter [facility] 02-04-2025 Note HNO ID: [id number] Author: RADHA ORTIZ RT(R) Service: ? Author Type: Technologist Type: Progress Notes Filed: 02/04/2025 15:46 Note Text: Radiology Service Progress Note PATIENT NAME: Giovanna Nation DATE OF SERVICE: February 04, 2025 TIME: 3:46 PM PATIENT IDENTITY VERIFICATION COMPLETED USING TWO (2) IDENTIFIERS: Name and Date of confirmed by patient verbally. FALL SCREENING: Has the patient had 2 falls in the last year or 1 fall with injury or currently using an Ambulatory Assistive Device (Walker, Cane, Wheelchair, Crutches, etc.)? No PATIENT GENDER DATA: Assigned female at . status: : No status: NO. PATIENT RELEVANT IMPLANT DATA REVIEWED: Not Applicable PATIENT PRESENTS WITH AN IMPLANTABLE OR ATTACHED JAVA LEAD ENGINEER: Yes Freestyle Kurtis RADIOLOGY DEPARTMENT: General X-ray: Exam(s) Completed: Pelvis X-Ray: Pelvis with Hip Right PERIPHERAL IV DATA: Not applicable SIGNED BY: RT Wisam(Clem) February 04, 2025 3:46 PM [facility] 02-04-2025 Instructions Leonarda Boykin MD - 02/04/2025 9:18 AM EDT Images from the original note were not included. Gluteus medius exercises. At [facility], your health is our top priority -- and we believe in a team-based approach to deliver the highest quality care. In our primary care practice, you'll be supported by a dedicated dyad team: a physician and an advance practice provider (ALBERTO) who work closely together to meet your health needs. This collaborative partnership ensures you receive timely, personalized care. Whether you're here for routine checkups, chronic condition management, acute illnesses or preventative care, your care team is committed to helping you stay well, every step of the way. Dr. Leonarda Boykin is partnered with Khushi Dawkins, who is a highly-trained physician assistant editor. She is certified and licensed to provide preventative and acute care, including diagnosing illness, prescribing medication and managing your treatment. As a team, Dr. Boykin and Khushi will be working together to ensure that all of your health care needs are met, including improved appointment availability. To schedule an appointment with your care team, please call [phone]. Thank you for the privilege of participating in your care. Sincerely, Leonarda Boykin MD & Khushi Dawkins PA-C documented in this encounter [facility] 02-04-2025 Note HNO ID: [id number] Author: LEONARDA BOYKIN MD Service: ? Author Type: Physician Type: Progress Notes Filed: 02/04/2025 09:41 Note Text: 02/04/2025 Recording using [employer] software for draft documentation of the visit was discussed with the patient/authorized car sales representative; all questions welcomed and answered. Patient/authorized car sales representative agreed to proceed HPI: Giovanna Nation is a 64-year-old female presenting for evaluation of dizziness, neck pain, and right hip pain following an elevator incident. Dizziness: - Onset after an elevator incident a few days ago. - Describes sensation as if spinning rather than the room spinning. - Aggravated by head movement, looking down, and closing eyes. - Associated with blurry vision; denies nausea. - No prior history of dizziness. Neck Pain: - Onset after elevator incident. - Describes pain and tightness in the neck. - Able to move neck; denies severe pain. - No recent physical therapy or injections for neck pain. Right Hip Pain: - Chronic pain x6 months, worsened by recent fall in August. - Pain localized deep in the joint, with occasional popping sensation. - Aggravated by stepping and weight-bearing activities. - Pain disrupts sleep. - No prior X-rays of the right hip. - History of falls in 2016 and December 2020, with previous injuries to the left side. No other concerns or complaints today. PAST MEDICAL HISTORY Diagnosis Date Attention deficit disorder without mention of hyperactivity Adult Closed fracture of distal end of left radius 08/21/2016 Excessive or frequent menstruation History of colonoscopy 12/2020 Myalgia and myositis, unspecified Primary hypertension 12/30/2023 PAST SURGICAL HISTORY Procedure Laterality Date APPENDECTOMY APPENDECTOMY HX LIG/TRNSXJ FLP TUBE ABDL/VAG APPR UNI/BI Tubal ligation FAMILY HISTORY Problem Relation Age of Onset Cancer Mother Cervical cancer- treated Psychiatry Sister suicide Ischemic Heart Disease Brother 60 [place], heavy smoker, Etoh Psychiatry Son Opoid dependency Cancer Other Niece (sister's daughter) Social History Tobacco Use Smoking status: Former Current packs/day: 0.50 Types: Cigarettes Smokeless tobacco: Never Vaping Use Vaping status: Former Substance Use Topics Alcohol use: No Drug use: Never Current Outpatient Medications on File Prior to Visit Medication Sig meloxicam (MOBIC) 7.5 mg tablet Take 7.5 mg by mouth once daily. doxepin capsule 10 mg Take 10 mg by mouth daily at bedtime. cyanocobalamin, vitamin B-12, (VITAMIN B-12 ORAL) Take by mouth. Gummie aspirin, enteric coated (ASPIRIN, ENTERIC COATED) 81 mg EC tablet Take 81 mg by mouth once daily. 1/2 tablet daily cholecalciferol, vitamin D3, (VITAMIN D3 50 MCG, 2,000 UNIT, GUMMIES) losartan-hydroCHLOROthiazide (HYZAAR) 50-12.5 mg per tablet Take 1 tablet by mouth once daily. DULoxetine (CYMBALTA) 30 mg capsule Take 1 capsule by mouth once daily. (Patient not taking: Reported on 02/04/2025) No current facility-administered medications on file prior to visit. Review of Systems: Head: (+) headache, (+) head pressure Eyes: (+) blurred vision Ears/Nose/Mouth/Throat: (-) sinus pressure Neck: (+) neck pain, (+) neck stiffness Musculoskeletal: (+) right hip pain, (+) right hip popping Neurological: (+) dizziness Physical Exam: BP 118/79 Pulse 71 Temp 37 ?C (98.6 ?F) Wt 47.2 kg (104 lb 0.9 oz) LMP 02/11/2006 SpO2 100% BMI 18.44 kg/m? GENERAL: NAD, alert and oriented. SKIN: Unremarkable, no rash or skin lesions. HEAD: Normocephalic. NECK: Supple, no lymphadenopathy, normal thyroid, no carotid bruits. LUNGS: Clear to auscultation bilaterally, no wheezes/rhonchi/rales. HEART: Regular rate and rhythm, no murmurs. No ectopy. Right hip Mild pain with straight leg raise, IR 5/5 strength EXTREMITIES: Normal, no deformities, no skin discoloration, no edema. NEURO: Awake, alert and oriented x3, cranial nerves II-XII grossly intact, normal gait, no involuntary motions. Normal finger to nose. Diagnostics reviewed: Assessment/Plan: 1. Right hip pain (M25.551) 2. Tendinopathy of right gluteus medius (M67.951) - Right hip pain with popping sensation and discomfort in the joint area, persisting for several months. - Good range of motion on examination; suspect tendinopathy of the right gluteus medius and possible arthritis. - Ordered X-ray of the right hip to evaluate joint and bony structures. - Recommended gluteus medius strengthening exercises. 3. Vertigo (R42) - Onset of vertigo following an incident in an elevator; described as a spinning sensation, exacerbated by head movements. - Suspect benign positional vertigo due to possible displacement of otoliths in the inner ear. - Ordered physical therapy for vestibular rehabilitation if symptoms persist. - Advised monitoring for severe headache, vomiting, or worsening vertigo; instru (more content not included)... [facility] 02-04-2025 History of Presen t illness Narrative 02/04/2025 Recording using [employer] software for draft documentation of the visit was discussed with the patient/authorized car sales representative; all questions welcomed and answered. Patient/authorized car sales representative agreed to proceed HPI: Giovanna Nation is a 64-year-old female presenting for evaluation of dizziness, neck pain, and right hip pain following an elevator incident. Dizziness: - Onset after an elevator incident a few days ago. - Describes sensation as if spinning rather than the room spinning. - Aggravated by head movement, looking down, and closing eyes. - Associated with blurry vision; denies nausea. - No prior history of dizziness. Neck Pain: - Onset after elevator incident. - Describes pain and tightness in the neck. - Able to move neck; denies severe pain. - No recent physical therapy or injections for neck pain. Right Hip Pain: - Chronic pain x6 months, worsened by recent fall in August. - Pain localized deep in the joint, with occasional popping sensation. - Aggravated by stepping and weight-bearing activities. - Pain disrupts sleep. - No prior X-rays of the right hip. - History of falls in 2016 and December 2020, with previous injuries to the left side. No other concerns or complaints today. PAST MEDICAL HISTORY Diagnosis Date Attention deficit disorder without mention of hyperactivity Adult Closed fracture of distal end of left radius 08/21/2016 Excessive or frequent menstruation History of colonoscopy 12/2020 Myalgia and myositis, unspecified Primary hypertension 12/30/2023 PAST SURGICAL HISTORY Procedure Laterality Date APPENDECTOMY APPENDECTOMY HX LIG/TRNSXJ FLP TUBE ABDL/VAG APPR UNI/BI Tubal ligation FAMILY HISTORY Problem Relation Age of Onset Cancer Mother Cervical cancer- treated Psychiatry Sister suicide Ischemic Heart Disease Brother 60 [place], heavy smoker, Etoh Psychiatry Son Opoid dependency Cancer Other Niece (sister's daughter) Social History Tobacco Use Smoking status: Former Current packs/day: 0.50 Types: Cigarettes Smokeless tobacco: Never Vaping Use Vaping status: Former Substance Use Topics Alcohol use: No Drug use: Never Current Outpatient Medications on File Prior to Visit Medication Sig meloxicam (MOBIC) 7.5 mg tablet Take 7.5 mg by mouth once daily. doxepin capsule 10 mg Take 10 mg by mouth daily at bedtime. cyanocobalamin, vitamin B-12, (VITAMIN B-12 ORAL) Take by mouth. Gummie aspirin, enteric coated (ASPIRIN, ENTERIC COATED) 81 mg EC tablet Take 81 mg by mouth once daily. 1/2 tablet daily cholecalciferol, vitamin D3, (VITAMIN D3 50 MCG, 2,000 UNIT, GUMMIES) losartan-hydroCHLOROthiazide (HYZAAR) 50-12.5 mg per tablet Take 1 tablet by mouth once daily. DULoxetine (CYMBALTA) 30 mg capsule Take 1 capsule by mouth once daily. (Patient not taking: Reported on 02/04/2025) No current facility-administered medications on file prior to visit. Review of Systems: Head: (+) headache, (+) head pressure Eyes: (+) blurred vision Ears/Nose/Mouth/Throat: (-) sinus pressure Neck: (+) neck pain, (+) neck stiffness Musculoskeletal: (+) right hip pain, (+) right hip popping Neurological: (+) dizziness Physical Exam: BP 118/79 Pulse 71 Temp 37 C (98.6 F) Wt 47.2 kg (104 lb 0.9 oz) LMP 02/11/2006 SpO2 100% BMI 18.44 kg/m GENERAL: NAD, alert and oriented. SKIN: Unremarkable, no rash or skin lesions. HEAD: Normocephalic. NECK: Supple, no lymphadenopathy, normal thyroid, no carotid bruits. LUNGS: Clear to auscultation bilaterally, no wheezes/rhonchi/rales. HEART: Regular rate and rhythm, no murmurs. No ectopy. Right hip Mild pain with straight leg raise, IR 5/5 strength EXTREMITIES: Normal, no deformities, no skin discoloration, no edema. NEURO: Awake, alert and oriented x3, cranial nerves II-XII grossly intact, normal gait, no involuntary motions. Normal finger to nose. Diagnostics reviewed: Assessment/Plan: 1. Right hip pain (M25.551) 2. Tendinopathy of right gluteus medius (M67.951) - Right hip pain with popping sensation and discomfort in the joint area, persisting for several months. - Good range of motion on examination; suspect tendinopathy of the right gluteus medius and possible arthritis. - Ordered X-ray of the right hip to evaluate joint and bony structures. - Recommended gluteus medius strengthening exercises. 3. Vertigo (R42) - Onset of vertigo following an incident in an elevator; described as a spinning sensation, exacerbated by head movements. - Suspect benign positional vertigo due to possible displacement of otoliths in the inner ear. - Ordered physical therapy for vestibular rehabilitation if symptoms persist. - Advised monitoring for severe headache, vomiting, or worsening vertigo; instructed to seek emergency care if these symptoms occur. Orders placed during this encounter: Office Visit on 02/04/25 XR HIP GENERAL 3V PELV/AP/LAT RIGHT CONSULT TO PHYSICAL THERAPY The patient indicates understanding of these issues and agrees with the plan of care. Red flag symptoms reviewed if needed. Leonarda Boykin MD documented in this encounter [facility] 12-30-2024 Telephone encounter Note Spoke with Diana, we just need the last office notes. She did fax that over to us. La Nena Mack LPN [facility] 12-30-2024 Miscellaneous Notes Spoke with Diana, we just need the last office notes. She did fax that over to us. La Nena Mack LPN Diana with [facility] is calling Leonarda Boykin MD today to note they received a cover page with a name and MRN requesting reports and the information in not clear on what is exactly needed. Please call to discuss what is needed for this patient from this facility Call back Daina/ Geochemist. [phone] Person calling: Diana Call patient at: on cell [phone] (home) [phone] (cell) Was an appointment scheduled: No Closing statement: Results or non-symptom based questions: Thank you for calling [facility], your call will be returned within the next business day. Vivian Slade documented in this encounter [facility] 12-29-2024 Telephone encounter Note Diana with [facility] is calling Leonarda Boykin MD today to note they received a cover page with a name and MRN requesting reports and the information in not clear on what is exactly needed. Please call to discuss what is needed for this patient from this facility Call back Diana/ Geochemist. [phone] Person calling: Diana Call patient at: on cell [phone] (home) [phone] (cell) Was an appointment scheduled: No Closing statement: Results or non-symptom based questions: Thank you for calling [facility], your call will be returned within the next business day. Vivian Slade [facility] 12-23-2024 Instructions Leonarda Boykin MD - 12/23/2024 12:34 PM EDT - Finish taking the Meloxicam 7.5 mg tablets as prescribed (two tablets each day) until your supply is gone. - Continue using the muscle relaxer (methocarbamol) as needed for hip muscle discomfort. - Begin physical therapy for your left hip, focusing on strengthening pelvic and gluteal muscles; aim for several weeks of sessions. - Start Duloxetine (Cymbalta) at the prescribed low dose once daily; it may take 4-6 weeks to help your nerve symptoms. Watch for dizziness or lightheadedness and let us know if you experience any concerning side effects. - You may try an alpha-lipoic acid supplement for nerve support--follow the label directions. - To support bowel regularity, take Miralax daily, eat plenty of fruits (especially prunes), drink adequate water, and consider a magnesium supplement if needed. - Keep your gastroenterology referral for a colonoscopy at [facility] in [place]. - Plan to return in about six weeks to review your hip pain and nerve symptom progress. - Contact the office sooner if your hip pain or nerve symptoms worsen, if you develop new concerns, or if you have any side effects. documented in this encounter [facility] 12-23-2024 Note HNO ID: [id number] Author: LEONARDA BOYKIN MD Service: ? Author Type: Physician Type: Progress Notes Filed: 12/23/2024 13:20 Note Text: 12/23/2024 Recording using [employer] software for draft documentation of the visit was discussed with the patient/authorized car sales representative; all questions welcomed and answered. Patient/authorized car sales representative agreed to proceed HPI: Giovanna Nation is a 64-year-old female with a history of degenerative disc disease, presenting for evaluation of left hip pain and ongoing neurological symptoms. Left Hip Pain: - Onset approximately two weeks ago, following vigorous [facility] - Pain began two days post-exercise, initially mild, then rapidly worsening to the point of being unable to bear weight on the left leg. - Describes pain as deep within the joint, with a C shape distribution from the back to the front of the hip. - Aggravated by standing up and straightening the back; no pain when leaning forward. - Avoided lying on the affected side initially, but later tried it without worsening the pain. - Pain persists but has not worsened; able to stand and walk with some discomfort. - ER visit at [facility] on ; X-rays showed no fractures, minimal arthritis. - Follow-up with Dr. Juliano Alatorre, supervisory investigative specialist, who prescribed Meloxicam 7.5 mg BID for 5 days; Giovanna has 9 tablets remaining. - Using ice therapy and Methocarbamol as needed for muscle relaxation. - Physical therapy recommended by Dr. Alatorre and to follow up if not improving. Neurological Symptoms: - Persistent numbness in the tongue and around the mouth, described as similar to post-dental procedure numbness. - Symptoms began in April 2023, with initial presentation of inability to open the eye and numbness around the mouth. - Numbness now extends to the face, arms, and legs, though less severe in the limbs. - Recent MRI of the neck reviewed by Dr. Ríos, aviation medicine specialist, who did not recommend surgery but referred to pain management. - Seen by Dr. Castillo, painter hand, who suggested a steroid injection; Giovanna hesitant about steroid use. - Previous treatment with Gabapentin by a neurologist; Giovanna unwilling to resume. - Currently taking Doxepin for sleep, started during a period of chronic headaches lasting a year. - Recent CT of the lower back showed some narrowing, but not severe. - Vascular evaluation for toe symptoms deemed non-vascular by the specialist. - Giovanna reports less stress now than in the past, but symptoms are causing concern and affecting quality of life. No other concerns or complaints today. PAST MEDICAL HISTORY Diagnosis Date Attention deficit disorder without mention of hyperactivity Adult Closed fracture of distal end of left radius 08/21/2016 Excessive or frequent menstruation History of colonoscopy 12/2020 Myalgia and myositis, unspecified Primary hypertension 12/30/2023 PAST SURGICAL HISTORY Procedure Laterality Date APPENDECTOMY APPENDECTOMY HX LIG/TRNSXJ FLP TUBE ABDL/VAG APPR UNI/BI Tubal ligation FAMILY HISTORY Problem Relation Age of Onset Cancer Mother Cervical cancer- treated Psychiatry Sister suicide Ischemic Heart Disease Brother 60 [place], heavy smoker, Etoh Psychiatry Son Opoid dependency Cancer Other Niece (sister's daughter) Social History Tobacco Use Smoking status: Former Current packs/day: 0.50 Types: Cigarettes Smokeless tobacco: Never Vaping Use Vaping status: Former Substance Use Topics Alcohol use: No Drug use: Never Current Outpatient Medications on File Prior to Visit Medication Sig meloxicam (MOBIC) 7.5 mg tablet Take 7.5 mg by mouth once daily. (Patient taking differently: Take 7.5 mg by mouth once daily. 1 tablet twice daily) doxepin capsule 10 mg Take 10 mg by mouth daily at bedtime. methocarbamol (ROBAXIN) 500 mg tablet Take 1 tablet by mouth two times a day as needed. cyanocobalamin, vitamin B-12, (VITAMIN B-12 ORAL) Take by mouth. Gummie aspirin, enteric coated (ASPIRIN, ENTERIC COATED) 81 mg EC tablet Take 81 mg by mouth once daily. 1/2 tablet daily cholecalciferol, vitamin D3, (VITAMIN D3 50 MCG, 2,000 UNIT, GUMMIES) losartan-hydroCHLOROthiazide (HYZAAR) 50-12.5 mg per tablet Take 1 tablet by mouth once daily. No current facility-administered medications on file prior to visit. Review of Systems: Musculoskeletal: (+) left hip pain, (+) left groin pain, (-) radiating posterior leg pain Neurological: (+) tongue numbness, (+) perioral numbness, (+) limb numbness Gastrointestinal: (+) constipation, (+) black stool Physical Exam: BP 120/72 Pulse 91 Temp 37.3 ?C (99.1 ?F) (Temporal) Ht 160 cm (5' 2.99) Wt 47.9 kg (105 lb 9.6 oz) LMP 02/11/2006 SpO2 100% BMI 18.71 kg/m? GENERAL: NAD, alert and oriented. SKIN: Unrema (more content not included)... [facility] 12-23-2024 History of Presen t illness Narrative 12/23/2024 Recording using [employer] software for draft documentation of the visit was discussed with the patient/authorized car sales representative; all questions welcomed and answered. Patient/authorized car sales representative agreed to proceed HPI: Giovanna Nation is a 64-year-old female with a history of degenerative disc disease, presenting for evaluation of left hip pain and ongoing neurological symptoms. Left Hip Pain: - Onset approximately two weeks ago, following vigorous exercise on a machine with [facility] - Pain began two days post-exercise, initially mild, then rapidly worsening to the point of being unable to bear weight on the left leg. - Describes pain as deep within the joint, with a C shape distribution from the back to the front of the hip. - Aggravated by standing up and straightening the back; no pain when leaning forward. - Avoided lying on the affected side initially, but later tried it without worsening the pain. - Pain persists but has not worsened; able to stand and walk with some discomfort. - ER visit at [facility] on ; X-rays showed no fractures, minimal arthritis. - Follow-up with Dr. Juliano Alatorre, supervisory investigative specialist, who prescribed Meloxicam 7.5 mg BID for 5 days; Giovanna has 9 tablets remaining. - Using ice therapy and Methocarbamol as needed for muscle relaxation. - Physical therapy recommended by Dr. Alatorre and to follow up if not improving. Neurological Symptoms: - Persistent numbness in the tongue and around the mouth, described as similar to post-dental procedure numbness. - Symptoms began in April 2023, with initial presentation of inability to open the eye and numbness around the mouth. - Numbness now extends to the face, arms, and legs, though less severe in the limbs. - Recent MRI of the neck reviewed by Dr. Ríos, aviation medicine specialist, who did not recommend surgery but referred to pain management. - Seen by Dr. Castillo, painter hand, who suggested a steroid injection; Giovanna hesitant about steroid use. - Previous treatment with Gabapentin by a neurologist; Giovanna unwilling to resume. - Currently taking Doxepin for sleep, started during a period of chronic headaches lasting a year. - Recent CT of the lower back showed some narrowing, but not severe. - Vascular evaluation for toe symptoms deemed non-vascular by the specialist. - Giovanna reports less stress now than in the past, but symptoms are causing concern and affecting quality of life. No other concerns or complaints today. PAST MEDICAL HISTORY Diagnosis Date Attention deficit disorder without mention of hyperactivity Adult Closed fracture of distal end of left radius 08/21/2016 Excessive or frequent menstruation History of colonoscopy 12/2020 Myalgia and myositis, unspecified Primary hypertension 12/30/2023 PAST SURGICAL HISTORY Procedure Laterality Date APPENDECTOMY APPENDECTOMY HX LIG/TRNSXJ FLP TUBE ABDL/VAG APPR UNI/BI Tubal ligation FAMILY HISTORY Problem Relation Age of Onset Cancer Mother Cervical cancer- treated Psychiatry Sister suicide Ischemic Heart Disease Brother 60 [place], heavy smoker, Etoh Psychiatry Son Opoid dependency Cancer Other Niece (sister's daughter) Social History Tobacco Use Smoking status: Former Current packs/day: 0.50 Types: Cigarettes Smokeless tobacco: Never Vaping Use Vaping status: Former Substance Use Topics Alcohol use: No Drug use: Never Current Outpatient Medications on File Prior to Visit Medication Sig meloxicam (MOBIC) 7.5 mg tablet Take 7.5 mg by mouth once daily. (Patient taking differently: Take 7.5 mg by mouth once daily. 1 tablet twice daily) doxepin capsule 10 mg Take 10 mg by mouth daily at bedtime. methocarbamol (ROBAXIN) 500 mg tablet Take 1 tablet by mouth two times a day as needed. cyanocobalamin, vitamin B-12, (VITAMIN B-12 ORAL) Take by mouth. Gummie aspirin, enteric coated (ASPIRIN, ENTERIC COATED) 81 mg EC tablet Take 81 mg by mouth once daily. 1/2 tablet daily cholecalciferol, vitamin D3, (VITAMIN D3 50 MCG, 2,000 UNIT, GUMMIES) losartan-hydroCHLOROthiazide (HYZAAR) 50-12.5 mg per tablet Take 1 tablet by mouth once daily. No current facility-administered medications on file prior to visit. Review of Systems: Musculoskeletal: (+) left hip pain, (+) left groin pain, (-) radiating posterior leg pain Neurological: (+) tongue numbness, (+) perioral numbness, (+) limb numbness Gastrointestinal: (+) constipation, (+) black stool Physical Exam: BP 120/72 Pulse 91 Temp 37.3 C (99.1 F) (Temporal) Ht 160 cm (5' 2.99) Wt 47.9 kg (105 lb 9.6 oz) LMP 02/11/2006 SpO2 100% BMI 18.71 kg/m GENERAL: NAD, alert and oriented. SKIN: Unremarkable, no rash or skin lesions. HEAD: Normocephalic. EXTREMITIES: Normal, no deformities, no skin discoloration, no edema. NEURO: Awake, alert and oriented x3, cranial nerves II-XII grossly intact, normal gait, no involuntary motions. Lumbar spine From Tender along upper left gluteus muscles and laterally Diagnostics reviewed: Assessment/Plan: 1. Cervical stenosis of spinal canal (M48.02) - Symptoms of numbness in the arms and perioral region; MRI from last summer shows mild spinal canal narrowing and arthritis. - Discussed potential benefits of a cervical epidural steroid injection; patient expressed hesitancy but understands it can serve as both diagnostic and therapeutic. - Prescribed Cymbalta to be taken daily; discussed potential side effects including dizziness and lightheadedness, which are typically mild and resolve within 1-2 weeks. - Follow-up in 6 weeks to assess response to treatment. 2. Lumbar spondylolysis (M43.06) - Symptoms include numbness in the legs; CT of the lower back shows some narrowing. - Discussed possibility of a lumbar epidural steroid injection if symptoms persist. - Continue current management; monitor symptoms. 3. Left hip pain (M25.552) - Onset of pain 2 days after [facility]; pain described as deep in the joint, exacerbated by standing and laying on the affected side. - X-rays from the ER showed no fractures and minimal arthritis; orthopedic evaluation by Dr. Alatorre suggested a muscular etiology. - Currently taking Meloxicam 7.5 mg BID for 10 days; advised to complete the course. - Also taking Methocarbamol as needed. - Referral to physical therapy initiated by Dr. Alatorre; advised to start PT if pain does not improve. - Discussed potential for tendinitis or labral issues; MRI may be considered if symptoms persist. Orders placed during this encounter: Office Visit on 12/23/24 meloxicam (MOBIC) 7.5 mg tablet DULoxetine (CYMBALTA) 30 mg capsule The patient indicates understanding of these issues and agrees with the plan of care. Red flag symptoms reviewed if needed. Leonarda Boykin MD documented in this encounter [facility] 11-18-2024 Telephone encounter Note Order is faxed, patient is informed. [facility] 11-18-2024 Miscellaneous Notes Order is faxed, patient is informed. Referral placed but should be seen sooner if not seeing GI for awhile. Khushi Dawkins PA-C Covering for Dr. Boykin Called and spoke with pt to triage black stools States she has had GI issues for over a year Reports she had a c scope a couple years ago that was not successful, she was told d/t improper prep which she says is incorrect because she did the prep as she was supposed to and the prep 'did something to her mentally' Pt repeatedly brought up ER visit in Aug, states she was very unhappy with that visit. Was told she was wasting resources Attempted several times to redirect pt back to discuss black stool concern She thinks this has been ongoing for a couple weeks She is not able to have normal BM. Thinks she has been full of stool for months. Passing some small pieces of stool with straining Certain they are black and not dark brown. Denies tarry stool When asking pt if she is experiencing dizziness, lightheadedness, pallor, etc, pt would say she is not sure what is wrong with her, if its neurologic or not, but something is wrong Discussed with pt that we are needing to know this information to determine if ER visit is indicated as black stool is concerning Pt states these are not new symptoms and needs to see GI Pt requesting consult placed and notified once placed. She will schedule with the GI near her in [place] Agreeable to PCP OV if recommended Patient calling back to explain she suffer from constipation and unable to completely empty her bowel and has black stool Transferred to nurse triage LM for patient to call the office to let us know why she is needs the referral. La Nena Mack LPN No problem but need to know what the referral is for? Why does she need to see a gastro doc? Please advise patient when this order has been faxed, she can be reached at [phone] Patient is calling to request a referral to a Gastro provider, and asked if the referral once placed can be faxed to his office. To: Dr. Davidson Mack Phone number - [phone] Fax number - [phone] documented in this encounter [facility] 11-18-2024 Telephone encounter Note Referral placed but should be seen sooner if not seeing GI for awhile. Khushi Dawkins PA-C Covering for Dr. Boykin [facility] 11-18-2024 Telephone encounter Note Called and spoke with pt to triage black stools States she has had GI issues for over a year Reports she had a c scope a couple years ago that was not successful, she was told d/t improper prep which she says is incorrect because she did the prep as she was supposed to and the prep 'did something to her mentally' Pt repeatedly brought up ER visit in Aug, states she was very unhappy with that visit. Was told she was wasting resources Attempted several times to redirect pt back to discuss black stool concern She thinks this has been ongoing for a couple weeks She is not able to have normal BM. Thinks she has been full of stool for months. Passing some small pieces of stool with straining Certain they are black and not dark brown. Denies tarry stool When asking pt if she is experiencing dizziness, lightheadedness, pallor, etc, pt would say she is not sure what is wrong with her, if its neurologic or not, but something is wrong Discussed with pt that we are needing to know this information to determine if ER visit is indicated as black stool is concerning Pt states these are not new symptoms and needs to see GI Pt requesting consult placed and notified once placed. She will schedule with the GI near her in [place] Agreeable to PCP OV if recommended [facility] 11-18-2024 Telephone encounter Note Patient calling back to explain she suffer from constipation and unable to completely empty her bowel and has black stool Transferred to nurse triage [facility] 11-18-2024 Telephone encounter Note LM for patient to call the office to let us know why she is needs the referral. La Nena Mack LPN [facility] 11-18-2024 Telephone encounter Note No problem but need to know what the referral is for? Why does she need to see a gastro doc? [facility] 11-17-2024 Telephone encounter Note Please advise patient when this order has been faxed, she can be reached at [phone] [facility] 11-17-2024 Telephone encounter Note Patient is calling to request a referral to a Gastro provider, and asked if the referral once placed can be faxed to his office. To: Dr. Davidson Mack Phone number - [phone] Fax number - [phone] [facility] 10-03-2024 Note HNO ID: [id number] Author: LEONARDA BOYKIN MD Service: ? Author Type: Physician Type: Progress Notes Filed: 10/03/2024 16:46 Note Text: Patient presents with: Follow Up HPI: Giovanna Nation is a 63 year old female who presents to the office today for follow up. Follow up blue toes Saw vascular who felt like this wasn't anything vascular, thought more related to venous stasis. Hx of adhd - sees psychiatrist [facility] in [place] - she wanted to stop strattera and resume doxepin. Has helped her anxiety, insomnia - doing better so far. HTN Losartan/hctz Bps well controlled Hasn't felt well since she had covid, then had RSV vaccine in 04/2023 - got sic the next day and had cramps, eventually went away until 06/2024 when she went to urgent care Diffuse muscle cramps mostly at night, feels like something is pressing on her body. Labs all normal last visit Tried muscle relaxer which helped a lot - methacarbamol helped a lot. C/o pain in her bilateral inguinal region, R>L, maybe for years. Bilateral lower extremity pain and tingling, wakes up with her arms tingling Had MRI c spine in 01/2024 - mild developmental c spine stenosis Doing PT at [facility] [facility] for her low back - seems to be helping. Ct lumbar spine 08/2024 - foraminal narrowing to the left on L4-L5 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 mention of hyperactivity Adult Closed fracture of distal end of left radius 08/21/2016 Excessive or frequent menstruation History of colonoscopy 12/2020 Myalgia and myositis, unspecified Primary hypertension 12/30/2023 PAST SURGICAL HISTORY Procedure Laterality Date APPENDECTOMY APPENDECTOMY HX LIG/TRNSXJ FLP TUBE ABDL/VAG APPR UNI/BI Tubal ligation FAMILY HISTORY Problem Relation Age of Onset Cancer Mother Cervical cancer- treated Psychiatry Sister suicide Ischemic Heart Disease Brother 60 [place], heavy smoker, Etoh Psychiatry Son Opoid dependency Cancer Other Niece (sister's daughter) Social History Tobacco Use Smoking status: Former Current packs/day: 0.50 Types: Cigarettes Smokeless tobacco: Never Vaping Use Vaping status: Former Substance Use Topics Alcohol use: No Drug use: Never ACTIVE PROBLEM LIST Myalgia and Myositis, Unspecified Shoulder Stiffness Radiculopathy, Cervical Region 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 Primary Osteoarthritis of First Carpometacarpal Joint of Left Hand Lateral Epicondylitis of Left Elbow Cubital Tunnel Syndrome On Left Pain in Left Wrist Chronic Left Shoulder Pain Pain in Left Elbow Numbness and Tingling in Left Upper Extremity Tobacco Abuse, in Remission Vitamin D Deficiency Vitamin B12 Deficiency Mdd (Major Depressive Disorder), Recurrent Episode, Severe (Hcc) Acute Pain of Right Shoulder New Daily Persistent Headache Adhd Primary Hypertension Left Facial Numbness Headache Raynaud's Disease Without Gangrene ALLERGIES Allergen Reactions Flovent [Fluticason* Other: See Comments took breath away Penicillins Rash Prednisone Mental Status Change Depression MEDICATIONS: doxepin capsule 10 mg Take 10 mg by mouth daily at bedtime. cyanocobalamin, vitamin B-12, (VITAMIN B-12 ORAL) Take by mouth. Gummie aspirin, enteric coated (ASPIRIN, ENTERIC COATED) 81 mg EC tablet Take 81 mg by mouth once daily. 1/2 tablet daily cholecalciferol, vitamin D3, (VITAMIN D3 50 MCG, 2,000 UNIT, GUMMIES) losartan-hydroCHLOROthiazide (HYZAAR) 50-12.5 mg per tablet Take 1 tablet by mouth once daily. methocarbamol (ROBAXIN) 500 mg tablet Take 1 tablet by mouth two times a day as needed. EXAM:BP 105/67 Pulse 86 Temp 36.4 ?C (97.5 ?F) (Temporal) Resp 16 Wt 46.5 kg (102 lb 8.2 oz) LMP 02/11/2006 SpO2 99% BMI 18.16 kg/m? Last Wt 10/03/24 : 46.5 kg (102 lb 8.2 oz) 09/24/24 : 45.8 kg (101 lb) 09/09/24 : 46.1 kg (101 lb 10.1 oz) 08/25/24 : 45.9 kg (101 lb 3.1 oz) PHYSICAL EXAM: General Appearance: Well appearing, alert, in no acute distress, well-hydrated, well nourished.. Sk (more content not included)... [facility] 10-03-2024 History of Presen t illness Narrative Patient presents with: Follow Up HPI: Giovanna Nation is a 63 year old female who presents to the office today for follow up. Follow up blue toes Saw vascular who felt like this wasn't anything vascular, thought more related to venous stasis. Hx of adhd - sees psychiatrist ot [facility] in [place] - she wanted to stop strattera and resume doxepin. Has helped her anxiety, insomnia - doing better so far. HTN Losartan/hctz Bps well controlled Hasn't felt well since she had covid, then had RSV vaccine in 04/2023 - got sic the next day and had cramps, eventually went away until 06/2024 when she went to urgent care Diffuse muscle cramps mostly at night, feels like something is pressing on her body. Labs all normal last visit Tried muscle relaxer which helped a lot - methacarbamol helped a lot. C/o pain in her bilateral inguinal region, R>L, maybe for years. Bilateral lower extremity pain and tingling, wakes up with her arms tingling Had MRI c spine in 01/2024 - mild developmental c spine stenosis Doing PT at [facility] [place] [facility] for her low back - seems to be helping. Ct lumbar spine 08/2024 - foraminal narrowing to the left on L4-L5 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 mention of hyperactivity Adult Closed fracture of distal end of left radius 08/21/2016 Excessive or frequent menstruation History of colonoscopy 12/2020 Myalgia and myositis, unspecified Primary hypertension 12/30/2023 PAST SURGICAL HISTORY Procedure Laterality Date APPENDECTOMY APPENDECTOMY HX LIG/TRNSXJ FLP TUBE ABDL/VAG APPR UNI/BI Tubal ligation FAMILY HISTORY Problem Relation Age of Onset Cancer Mother Cervical cancer- treated Psychiatry Sister suicide Ischemic Heart Disease Brother 60 [place], heavy smoker, Etoh Psychiatry Son Opoid dependency Cancer Other Niece (sister's daughter) Social History Tobacco Use Smoking status: Former Current packs/day: 0.50 Types: Cigarettes Smokeless tobacco: Never Vaping Use Vaping status: Former Substance Use Topics Alcohol use: No Drug use: Never ACTIVE PROBLEM LIST Myalgia and Myositis, Unspecified Shoulder Stiffness Radiculopathy, Cervical Region 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 Primary Osteoarthritis of First Carpometacarpal Joint of Left Hand Lateral Epicondylitis of Left Elbow Cubital Tunnel Syndrome On Left Pain in Left Wrist Chronic Left Shoulder Pain Pain in Left Elbow Numbness and Tingling in Left Upper Extremity Tobacco Abuse, in Remission Vitamin D Deficiency Vitamin B12 Deficiency Mdd (Major Depressive Disorder), Recurrent Episode, Severe (Hcc) Acute Pain of Right Shoulder New Daily Persistent Headache Adhd Primary Hypertension Left Facial Numbness Headache Raynaud's Disease Without Gangrene ALLERGIES Allergen Reactions Flovent [Fluticason* Other: See Comments took breath away Penicillins Rash Prednisone Mental Status Change Depression MEDICATIONS: doxepin capsule 10 mg Take 10 mg by mouth daily at bedtime. cyanocobalamin, vitamin B-12, (VITAMIN B-12 ORAL) Take by mouth. Gummie aspirin, enteric coated (ASPIRIN, ENTERIC COATED) 81 mg EC tablet Take 81 mg by mouth once daily. 1/2 tablet daily cholecalciferol, vitamin D3, (VITAMIN D3 50 MCG, 2,000 UNIT, GUMMIES) losartan-hydroCHLOROthiazide (HYZAAR) 50-12.5 mg per tablet Take 1 tablet by mouth once daily. methocarbamol (ROBAXIN) 500 mg tablet Take 1 tablet by mouth two times a day as needed. EXAM:BP 105/67 Pulse 86 Temp 36.4 C (97.5 F) (Temporal) Resp 16 Wt 46.5 kg (102 lb 8.2 oz) LMP 02/11/2006 SpO2 99% BMI 18.16 kg/m Last Wt 10/03/24 : 46.5 kg (102 lb 8.2 oz) 09/24/24 : 45.8 kg (101 lb) 09/09/24 : 46.1 kg (101 lb 10.1 oz) 08/25/24 : 45.9 kg (101 lb 3.1 oz) PHYSICAL EXAM: General Appearance: Well appearing, alert, in no acute distress, well-hydrated, well nourished.. Skin: Skin color, texture, turgor normal, no suspicious rashes or lesions. Extremities: No deformities, edema, skin discoloration, clubbing or cyanosis. Good capillary refill. Toes are dusky blue but improve with elevation. Peripheral Pulses: Normal. Neurologic: Gait normal. ASSESSMENT/PLAN: 1. Lumbar spondylolysis - ICD9: 738.4, ICD10: M43.06 (primary diagnosis) - suspect lumbar ddd is contributing to lower extremity symptoms, continue PT, start PT of c spine as well, refill methocarbamol, consider EMG if not improving. 2. Myalgias - ICD9: 729.1, ICD10: M79.10 - METHOCARBAMOL 500 MG TABLET 3. Venous congestion - ICD9: 459.89, ICD10: I87.8 - reassurance provided, continue to elevate feet as needed. 4. Cervical stenosis of spinal canal - ICD9: 723.0, ICD10: M48.02 - PT at [facility] Leonarda Boykin Shingrix Vaccine(1 of 2) Never done Pneumococcal Vaccine: 50+(2 of 2 - PCV) due on 03/05/2018 Mammogram Screening due on 03/03/2022 Influenza Vaccine(1) Never done Covid-19 Vaccine( season) due on 03/16/2024 documented in this encounter [facility] 10-03-2024 Note HNO ID: [id number] Author: HARINI MENDEZ MA Service: ? Author Type: Twister Frame Tender Type: Progress Notes Filed: 10/03/2024 16:46 Note Text: Shingrix Vaccine(1 of 2) Never done Pneumococcal Vaccine: 50+(2 of 2 - PCV) due on 03/05/2018 Mammogram Screening due on 03/03/2022 Influenza Vaccine(1) Never done Covid-19 Vaccine( season) due on 03/16/2024 [facility] 09-24-2024 Instructions Bev Mcdonald MD - 09/24/2024 9:58 AM EDT We recommend you to follow with your PCP, given we do not think you have a vascular related issue documented in this encounter [facility] 09-24-2024 History of Presen t illness Narrative [facility] [place] Shahriar Stringer Department of Cardiovascular Medicine SECTION OF VASCULAR MEDICINE OUTPATIENT VISIT DATE September 24, 2024 OUTPATIENT VISIT TYPE CONSULTATION Consult regarding: Tingling and numbness sensation involving upper and lower extremities. Consult requested by: Michael Flynn My final recommendations will be communicated back to the requesting physician by way of the shared medical record or by letter. Primary care physician: Leonarda Boykin MD History of present illness: The patient is a 63-year-old female with a medical history significant for essential hypertension, former tobacco use, and major depressive disorder. She presents today with a chief complaint of generalized pain affecting the shoulders, upper extremities, lower extremities, and back, accompanied by tingling and numbness in the same distribution. These symptoms have been present for approximately 1 year and 5 months and have progressively worsened over this time. The patient also reports bilateral upper extremity weakness, particularly when lying flat in bed. She denies any swelling, ulcerations, or wounds in the extremities.\ The patient had a normal PVR on 08/25/2024. Additionally, extensive imaging studies, including a CTA of the abdomen, pelvis, and lower extremities with IV contrast, were unremarkable for vascular pathology. The patient acknowledges experiencing anxiety related to her symptoms, as well as insomnia, which has required medication. Allergies: is allergic to flovent [fluticasone propionate], penicillins, and prednisone. Medications: aspirin, enteric coated (ASPIRIN, ENTERIC COATED) 81 mg EC tablet Take 81 mg by mouth once daily. 1/2 tablet daily aspirin-omeprazole 81-40 mg TbID Take 81 mg by mouth once daily. Half tab daily (Patient not taking: Reported on 09/09/2024) cholecalciferol, vitamin D3, (VITAMIN D3 50 MCG, 2,000 UNIT, GUMMIES) cyanocobalamin/thiamine HCl (WESLEY-B-12 ORAL) Take by mouth. gabapentin (NEURONTIN) 100 mg capsule Take 1 capsule by mouth four times daily for 180 days. NIFEdipine ER (PROCARDIA XL) 30 mg 24 hr tablet Take 1 tablet by mouth once daily. (Patient not taking: Reported on 09/04/2024) losartan-hydroCHLOROthiazide (HYZAAR) 50-12.5 mg per tablet Take 1 tablet by mouth once daily. multivit-min/ferrous fumarate (MULTI VITAMIN ORAL) Take by mouth. (Patient not taking: Reported on 09/04/2024) Past medical history: has a past medical history of Attention deficit disorder without mention of hyperactivity, Closed fracture of distal end of left radius (08/21/2016), Excessive or frequent menstruation, History of colonoscopy (12/2020), Myalgia and myositis, unspecified, and Primary hypertension (12/30/2023). She has no past medical history of COPD (chronic obstructive pulmonary disease) (HCC), Coronary artery disease, Diabetes (HCC), Sleep apnea, or Stroke (HCC). Past surgical history: has a past surgical history that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 evaluation will be sent to Dr. Archer 09/16/24 for review and signature and fax to [phone] documented in this encounter [facility] 09-09-2024 Instructions liset Joanna - 09/09/2024 12:21 PM EST Images from the original note were not included. ASSESSMENT/PLAN: 1. Bacterial sinusitis - ICD9: 473.9, 041.9, ICD10: J32.9, B96.89 (primary diagnosis) - Will begin treatment with as per antibiotic as written, see orders - Supportive care with plenty of fluids, rest, and analgesia prn. - DOXYCYCLINE HYCLATE 100 MG TABLET 2. Acute otitis media, left - ICD9: 382.9, ICD10: H66.92 - Will begin treatment with as per antibiotic as written, see orders - Supportive care with plenty of fluids, rest, and analgesia prn. - DOXYCYCLINE HYCLATE 100 MG TABLET 3. Oral thrush - ICD9: 112.0, ICD10: B37.0 - NYSTATIN 100,000 UNIT/ML ORAL SUSPENSION Adult Sinusitis Patient Education What is Sinusitis? Sinusitis [gxnk-apq-ycrz-tis] is inflammation of the sinuses or swelling of the lining of the sinus cavity or nose. During an infection the sinuses become blocked with fluid causing swelling of the lining of the sinuses. Symptoms: (viral and bacterial infections) Stuffy nose Runny nose Postnasal drip Fever Toothache Headache Tiredness Cough Sore throat Face and head pressure and or pain Common causes: 98% of sinus infections are viral caused by viruses. Risk Factors of Sinusitis Include: Allergies, air pollution, indoor humidity and outdoor temperature changes, andstructural changes in the nose may contribute to sinus pain, pressure and congestion. When to get help? Temperature greater than 100.4 F Symptoms lasting more than 10 days or worsening symptoms greater than 7-10 days. If you do not improve or worsen after a course of antibiotics, you should be re-examined. Diagnosis and Treatment: Your healthcare provider will ask a number of questions about your symptoms and how long they have occurred. If symptoms of sinusitis persist greater than 10 days, it is possible you have a bacterial sinus infection and an antibiotic is prescribed. If it is viral, antibiotics will not help. You may be instructed to take qwir-ibn-srdlmyh medications for symptoms. including fever reducers acetaminophen or ibuprofen, nasal saline spray, cough and cold preparations and decongestants as prescribed by the physician, nurse practitioner or physician assistant editor. Self-Care and Prevention: Rest Fluids for hydration Good hand washing Humidifier Avoid smoking and exposure to second hand smoke Avoid sick contacts OTITIS MEDIA GENERAL INFORMATION: Otitis media is an infection of the middle ear. The middle ear sits behind the eardrum. This infection may be caused by a virus or bacteria and often follows a cold. Otitis media is not contagious. INSTRUCTIONS: 1. An antibiotic has been prescribed. It should be taken exactly as prescribed. Do not stop the medicine even if the symptoms go away. 2. Juqu-xoe-yjitnkt pain medication may be taken or other pain medication as prescribed by the doctor. 3. Nothing should be placed in the ear unless instructed by your doctor. 4. The patient may return to school/daycare or work when the temperature is normal (98.6 F or 37 C). 5. The patient should not swim while the ear is infected. CONTACT YOUR DOCTOR IF YOU OR YOUR CHILD: 1. Does not feel better within 36 hours. 2. Develops a temperature over 102E F (39E C). 3. Starts vomiting or has diarrhea. 4. Develops drainage from the affected ear. 5. Has any new problem that may be related to the medicine prescribed. documented in this encounter [facility] 09-09-2024 Note HNO ID: [id number] Author: KATERIN ELLIS APRN.[facility] Service: ? Author Type: Nurse Practitioner Type: Progress Notes Filed: 09/09/2024 12:40 Note Text: Subjective HPI Pt is a 63 y/o female who presents with bilateral ear pain, sore throat, non-productive cough and chest congestion x 9 days. Pt reports feeling short of breath when laying flat. No reports of fever but reports body aches and chills. Pt tested herself for COVID twice and they were both negative, most recent test was this am. Pt has not tried any otc medications. Review of Systems Constitutional: Positive for chills and malaise/fatigue. HENT: Positive for congestion, ear pain, nosebleeds, sinus pain and sore throat. Negative for ear discharge. Eyes: Negative. Respiratory: Positive for cough. Cardiovascular: Positive for chest pain (chest tightness with coughing) and orthopnea. Gastrointestinal: Negative for abdominal pain, diarrhea, nausea and vomiting. Genitourinary: Negative. Musculoskeletal: Positive for myalgias. BP 118/70 Pulse 96 Temp 36.7 ?C (98.1 ?F) Resp 18 Wt 46.1 kg (101 lb 10.1 oz) LMP 02/11/2006 SpO2 98% BMI 18.01 kg/m? PAST MEDICAL HISTORY Diagnosis Date Attention deficit disorder without mention of hyperactivity Adult Closed fracture of distal end of left radius 08/21/2016 Excessive or frequent menstruation History of colonoscopy 12/2020 Myalgia and myositis, unspecified Primary hypertension 12/30/2023 PAST SURGICAL HISTORY Procedure Laterality Date APPENDECTOMY APPENDECTOMY HX LIG/TRNSXJ FLP TUBE ABDL/VAG APPR UNI/BI Tubal ligation ALLERGIES Flovent [Fluticasone Propionate], Penicillins, and Prednisone MEDICATIONS cholecalciferol, vitamin D3, (VITAMIN D3 50 MCG, 2,000 UNIT, GUMMIES) cyanocobalamin/thiamine HCl (WESLEY-B-12 ORAL) Take by mouth. gabapentin (NEURONTIN) 100 mg capsule Take 1 capsule by mouth four times daily for 180 days. methocarbamol (ROBAXIN) 500 mg tablet Take 1 tablet by mouth three times a day for 14 days. losartan-hydroCHLOROthiazide (HYZAAR) 50-12.5 mg per tablet Take 1 tablet by mouth once daily. aspirin, enteric coated (ASPIRIN, ENTERIC COATED) 81 mg EC tablet Take 81 mg by mouth once daily. 1/2 tablet daily doxycycline (VIBRA-TABS) 100 mg tablet Take 1 tablet by mouth two times a day for 7 days. nystatin (MYCOSTATIN) 100,000 unit/mL suspension Take 5 mL by mouth four times daily for 7 days. 1tsp swish in mouth for several minutes, then swallow (or expectorate) 4 times daily until gone. aspirin-omeprazole 81-40 mg TbID Take 81 mg by mouth once daily. Half tab daily (Patient not taking: Reported on 09/09/2024) NIFEdipine ER (PROCARDIA XL) 30 mg 24 hr tablet Take 1 tablet by mouth once daily. (Patient not taking: Reported on 09/04/2024) multivit-min/ferrous fumarate (MULTI VITAMIN ORAL) Take by mouth. (Patient not taking: Reported on 09/04/2024) FAMILY HISTORY Problem Relation Age of Onset Cancer Mother Cervical cancer- treated Psychiatry Sister suicide Ischemic Heart Disease Brother 60 [place], heavy smoker, Etoh Psychiatry Son Opoid dependency Cancer Other Niece (sister's daughter) Social History Tobacco Use Smoking status: Former Current packs/day: 0.50 Types: Cigarettes Smokeless tobacco: Never Vaping Use Vaping status: Former Substance Use Topics Alcohol use: No Drug use: Never Objective Physical Exam Constitutional: General: She is awake. HENT: Head: Normocephalic. Right Ear: Hearing normal. Tympanic membrane is injected. Left Ear: Hearing normal. Tympanic membrane is injected. Nose: Nasal tenderness and congestion present. Comments: Small abrasion medial portion of R nostril Mouth/Throat: Mouth: Mucous membranes are moist. Pharynx: Posterior oropharyngeal erythema (mild) present. Comments: Thin white coating on tongue Eyes: Conjunctiva/sclera: Conjunctivae normal. Cardiovascular: Rate and Rhythm: Normal rate and regular rhythm. Pulmonary: Effort: Pulmonary effort is normal. Breath sounds: Normal breath sounds. Skin: Findings: Rash present. Rash is papular. Comments: Small papular rash on L side of neck below the left ear Neurological: Mental Status: She is alert. ASSESSMENT/PLAN: 1. Bacterial sinusitis - ICD9: 473.9, 041.9, ICD10: J32.9, B96.89 (primary diagnosis) - Will begin treatment with as per antibiotic as written, see orders - Supportive care with plenty of fluids, rest, and analgesia prn. - DOXYCYCLINE HYCLATE 100 MG TABLET 2. Acute otitis media, left - ICD9: 382.9, ICD10: H66.92 - Will begin treatment with as per antibiotic as written, see orders - Supportive care with plenty of fluids, rest, and analgesia prn. - DOXYCYCLINE HYCLATE 100 MG TABLET 3. Oral thrush - ICD9: 112.0, ICD10: B37.0 - NYSTATIN 100,000 UNIT/ML ORAL SUSPENSION Joanna Carbajal TEACHING PROVIDER (Physician/PA/PLASTERER ROUGH) NOTE OF PERSONAL INVOLVEMENT IN CARE: I have person (more content not included)... [facility] 09-09-2024 History of Presen t illness Narrative Subjective HPI Pt is a 63 y/o female who presents with bilateral ear pain, sore throat, non-productive cough and chest congestion x 9 days. Pt reports feeling short of breath when laying flat. No reports of fever but reports body aches and chills. Pt tested herself for COVID twice and they were both negative, most recent test was this am. Pt has not tried any otc medications. Review of Systems Constitutional: Positive for chills and malaise/fatigue. HENT: Positive for congestion, ear pain, nosebleeds, sinus pain and sore throat. Negative for ear discharge. Eyes: Negative. Respiratory: Positive for cough. Cardiovascular: Positive for chest pain (chest tightness with coughing) and orthopnea. Gastrointestinal: Negative for abdominal pain, diarrhea, nausea and vomiting. Genitourinary: Negative. Musculoskeletal: Positive for myalgias. BP 118/70 Pulse 96 Temp 36.7 C (98.1 F) Resp 18 Wt 46.1 kg (101 lb 10.1 oz) LMP 02/11/2006 SpO2 98% BMI 18.01 kg/m PAST MEDICAL HISTORY Diagnosis Date Attention deficit disorder without mention of hyperactivity Adult Closed fracture of distal end of left radius 08/21/2016 Excessive or frequent menstruation History of colonoscopy 12/2020 Myalgia and myositis, unspecified Primary hypertension 12/30/2023 PAST SURGICAL HISTORY Procedure Laterality Date APPENDECTOMY APPENDECTOMY HX LIG/TRNSXJ FLP TUBE ABDL/VAG APPR UNI/BI Tubal ligation ALLERGIES Flovent [Fluticasone Propionate], Penicillins, and Prednisone MEDICATIONS cholecalciferol, vitamin D3, (VITAMIN D3 50 MCG, 2,000 UNIT, GUMMIES) cyanocobalamin/thiamine HCl (WESLEY-B-12 ORAL) Take by mouth. gabapentin (NEURONTIN) 100 mg capsule Take 1 capsule by mouth four times daily for 180 days. methocarbamol (ROBAXIN) 500 mg tablet Take 1 tablet by mouth three times a day for 14 days. losartan-hydroCHLOROthiazide (HYZAAR) 50-12.5 mg per tablet Take 1 tablet by mouth once daily. aspirin, enteric coated (ASPIRIN, ENTERIC COATED) 81 mg EC tablet Take 81 mg by mouth once daily. 1/2 tablet daily doxycycline (VIBRA-TABS) 100 mg tablet Take 1 tablet by mouth two times a day for 7 days. nystatin (MYCOSTATIN) 100,000 unit/mL suspension Take 5 mL by mouth four times daily for 7 days. 1tsp swish in mouth for several minutes, then swallow (or expectorate) 4 times daily until gone. aspirin-omeprazole 81-40 mg TbID Take 81 mg by mouth once daily. Half tab daily (Patient not taking: Reported on 09/09/2024) NIFEdipine ER (PROCARDIA XL) 30 mg 24 hr tablet Take 1 tablet by mouth once daily. (Patient not taking: Reported on 09/04/2024) multivit-min/ferrous fumarate (MULTI VITAMIN ORAL) Take by mouth. (Patient not taking: Reported on 09/04/2024) FAMILY HISTORY Problem Relation Age of Onset Cancer Mother Cervical cancer- treated Psychiatry Sister suicide Ischemic Heart Disease Brother 60 [place], heavy smoker, Etoh Psychiatry Son Opoid dependency Cancer Other Niece (sister's daughter) Social History Tobacco Use Smoking status: Former Current packs/day: 0.50 Types: Cigarettes Smokeless tobacco: Never Vaping Use Vaping status: Former Substance Use Topics Alcohol use: No Drug use: Never Objective Physical Exam Constitutional: General: She is awake. HENT: Head: Normocephalic. Right Ear: Hearing normal. Tympanic membrane is injected. Left Ear: Hearing normal. Tympanic membrane is injected. Nose: Nasal tenderness and congestion present. Comments: Small abrasion medial portion of R nostril Mouth/Throat: Mouth: Mucous membranes are moist. Pharynx: Posterior oropharyngeal erythema (mild) present. Comments: Thin white coating on tongue Eyes: Conjunctiva/sclera: Conjunctivae normal. Cardiovascular: Rate and Rhythm: Normal rate and regular rhythm. Pulmonary: Effort: Pulmonary effort is normal. Breath sounds: Normal breath sounds. Skin: Findings: Rash present. Rash is papular. Comments: Small papular rash on L side of neck below the left ear Neurological: Mental Status: She is alert. ASSESSMENT/PLAN: 1. Bacterial sinusitis - ICD9: 473.9, 041.9, ICD10: J32.9, B96.89 (primary diagnosis) - Will begin treatment with as per antibiotic as written, see orders - Supportive care with plenty of fluids, rest, and analgesia prn. - DOXYCYCLINE HYCLATE 100 MG TABLET 2. Acute otitis media, left - ICD9: 382.9, ICD10: H66.92 - Will begin treatment with as per antibiotic as written, see orders - Supportive care with plenty of fluids, rest, and analgesia prn. - DOXYCYCLINE HYCLATE 100 MG TABLET 3. Oral thrush - ICD9: 112.0, ICD10: B37.0 - NYSTATIN 100,000 UNIT/ML ORAL SUSPENSION Joanna Carbajal TEACHING PROVIDER (Physician/PA/PLASTERER ROUGH) NOTE OF PERSONAL INVOLVEMENT IN CARE: I have personally seen and examined the patient and performed the medical decision-making components. I have reviewed the Advanced Practice Registered Nurse (PLASTERER ROUGH) Student's documentation and verified the findings in the note as written. Any additions or changes are noted in bold/italics. Signature: Katerin Ellis Date: 09/09/2024 Time: 12:38 PM documented in this encounter [facility] 09-05-2024 Telephone encounter Note Patient aware, verbalized understanding. La Nena Mack LPN [facility] 09-05-2024 Miscellaneous Notes Patient aware, verbalized understanding. La Nena Mack LPN Blood work all normal. Vitamin b12 a little high, but not concerning. Recommend keeping appointment with vascular doctor for next steps. Giovanna is calling Leonarda Boykin MD today with concern regarding Results/ Labs Patient is calling in today for lab results. Patient has been identified by name and birthdate. Duration of symptoms: N/A Person calling: self Call patient at: at home [phone] (home) [phone] (cell) Was an appointment scheduled: No Closing statement: Results or non-symptom based questions: Thank you for calling [facility], your call will be returned within the next business day. Michael Zhang Pss documented in this encounter [facility] 09-05-2024 Telephone encounter Note Blood work all normal. Vitamin b12 a little high, but not concerning. Recommend keeping appointment with vascular doctor for next steps. [facility] 09-04-2024 Note HNO ID: [id number] Author: CARLOTTA ARCHER MD Service: ? Author Type: Physician Type: Progress Notes Filed: 09/06/2024 16:44 Note Text: [facility] [place] Patient presents with: Follow Up: Headaches/ has dry needling done in March and its still bothering her Accompanied by Self. Patient is 63 years old pleasant woman who is here for follow up for headache neck and shoulder pain . She has been to physical therapy and had dry needling for pain She didn't get relief from dry needling but felt it exacerbated her pain and was worried that a nerve can be injured We discussed restarting Gabapentin for neuropathic pain As it was helping her but she discontinued taking it Left occipital neuralgia , Robaxin and gabapentin HISTORY Pleasant 63 years old woman ,who is here for follow up For headache and tinnitus ,as reaction to the vaccine . She would like to get rid of tinnitus Headache is intermittent since May 12 Gone until third of MayMay 25 came back but then gone quickly. 2 days ago had mild headache Feeling skull is tender with the headache Not sleeping well at night ,only few hours Plan . HISTORY AND PHYSICAL Ms. Nation is a 63 year old female, being seen today for headache for 8 months . She was admitted to the hospital and had extensive work up MRI MRV with no acute lesion. Headache is left temporal parietal ,started severe throbbing ,now is mild dull aching Constant,daily but doesn't interfere with any of her daily activities. Left facial numbness with the onset of headache All these problems happened only after RSV vaccine ,never had these symptoms before the vaccine No previous history of migriane , Allergic to steroids ,affected her mentally She also has Neck pain intermittently and currently getting physical therapy for her neck as well as dry needling for the muscles With good relief Past Medical History PAST MEDICAL HISTORY Diagnosis Date Attention deficit disorder without mention of hyperactivity Adult Closed fracture of distal end of left radius 08/21/2016 Excessive or frequent menstruation History of colonoscopy 12/2020 Myalgia and myositis, unspecified Primary hypertension 12/30/2023 Current Medications Current Outpatient Medications Medication Sig Dispense Refill aspirin-omeprazole 81-40 mg TbID Take 81 mg by mouth once daily. Half tab daily cholecalciferol, vitamin D3, (VITAMIN D3 50 MCG, 2,000 UNIT, GUMMIES) cyanocobalamin/thiamine HCl (WESLEY-B-12 ORAL) Take by mouth. losartan-hydroCHLOROthiazide (HYZAAR) 50-12.5 mg per tablet Take 1 tablet by mouth once daily. 90 tablet 3 gabapentin (NEURONTIN) 100 mg capsule Take 1 capsule by mouth four times daily for 180 days. 360 capsule 1 methocarbamol (ROBAXIN) 500 mg tablet Take 1 tablet by mouth three times a day for 14 days. 42 tablet 0 NIFEdipine ER (PROCARDIA XL) 30 mg 24 hr tablet Take 1 tablet by mouth once daily. (Patient not taking: Reported on 09/04/2024) 30 tablet 1 multivit-min/ferrous fumarate (MULTI VITAMIN ORAL) Take by mouth. (Patient not taking: Reported on 09/04/2024) No current facility-administered medications for this visit. Review of Systems: As shown in history All other systems reviewed and are negative. Objective Physical Exam BP 171/96 (BP Site: Left Arm, BP Position: Sitting, BP Cuff Size: Regular Adult) Pulse 82 Resp 16 LMP 02/11/2006 SpO2 100% Neurological Exam MENTAL STATUS: Alert, oriented to person, place and time and Follows commands CRANIAL NERVES: Visual godinez intact to confrontation, Face symmetric, Hearing intact to finger rub bilaterally, No dysarthria, Palate elevates symmetrically, Tongue protrudes midline, and Shoulder shrug intact and symmetric MOTOR: No drift and Normal tone MOTOR STRENGTH: Upper and lower extremity 5/5 bilaterally REFLEXES: UE and LE reflexes are equal and reactive SENSATION: Intact light touch COORDINATION: Finger-to- nose-finger intact bilaterally GAIT: Normal-based TANDEM good Data Diagnostic tests reviewed for today's visit: LABS: Lab Results Component Value Date PLT 278 08/20/2024 HB 13.3 08/20/2024 HCT 40.1 08/20/2024 ALB 4.4 08/20/2024 CA 9.7 08/20/2024 TBILI 0.4 08/20/2024 ALKPHOS 83 08/20/2024 AST 28 08/20/2024 GLUC 98 08/20/2024 BUN 13 08/20/2024 NA 141 08/20/2024 K 3.6 (L) 08/20/2024 CHLOR 104 08/20/2024 CO2 29 08/20/2024 ANION 8 08/20/2024 ALT 29 08/20/2024 Lab Results Component Value Date WSR 2 08/25/2024 CRP <0.3 08/25/2024 No results found for: USCRP Lab Results Component Value Date CHOL 165 06/13/2022 CHOL 175 05/08/2021 CHOL 185 06/12/2018 Lab Results Component Value Date LDL 100 (H) 06/13/2022 LDL 103 (H) 05/08/2021 LDL 120 (H) 06/12/2018 Lab Results Component Value Date HDL 51 06/13/2022 HDL 54 05/08/2021 HDL 52 06/12/2018 Lab Results Component Value Date TG 69 06/13/2022 TG 90 (more content not included)... [facility] 09-04-2024 History of Presen t illness Narrative Images from the original note were not included. Neu[facility] [place] Patient presents with: Follow Up: Headaches/ has dry needling done in March and its still bothering her Accompanied by Self. Patient is 63 years old pleasant woman who is here for follow up for headache neck and shoulder pain . She has been to physical therapy and had dry needling for pain She didn't get relief from dry needling but felt it exacerbated her pain and was worried that a nerve can be injured We discussed restarting Gabapentin for neuropathic pain As it was helping her but she discontinued taking it Left occipital neuralgia , Robaxin and gabapentin HISTORY Pleasant 63 years old woman ,who is here for follow up For headache and tinnitus ,as reaction to the vaccine . She would like to get rid of tinnitus Headache is intermittent since May 12 Gone until may 10 came back but then gone quickly. 2 days ago had mild headache Feeling skull is tender with the headache Not sleeping well at night ,only few hours Plan . HISTORY AND PHYSICAL Ms. Nation is a 63 year old female, being seen today for headache for 8 months . She was admitted to the hospital and had extensive work up MRI MRV with no acute lesion. Headache is left temporal parietal ,started severe throbbing ,now is mild dull aching Constant,daily but doesn't interfere with any of her daily activities. Left facial numbness with the onset of headache All these problems happened only after RSV vaccine ,never had these symptoms before the vaccine No previous history of migriane , Allergic to steroids ,affected her mentally She also has Neck pain intermittently and currently getting physical therapy for her neck as well as dry needling for the muscles With good relief Past Medical History PAST MEDICAL HISTORY Diagnosis Date Attention deficit disorder without mention of hyperactivity Adult Closed fracture of distal end of left radius 08/21/2016 Excessive or frequent menstruation History of colonoscopy 12/2020 Myalgia and myositis, unspecified Primary hypertension 12/30/2023 Current Medications Current Outpatient Medications Medication Sig Dispense Refill aspirin-omeprazole 81-40 mg TbID Take 81 mg by mouth once daily. Half tab daily cholecalciferol, vitamin D3, (VITAMIN D3 50 MCG, 2,000 UNIT, GUMMIES) cyanocobalamin/thiamine HCl (WESLEY-B-12 ORAL) Take by mouth. losartan-hydroCHLOROthiazide (HYZAAR) 50-12.5 mg per tablet Take 1 tablet by mouth once daily. 90 tablet 3 gabapentin (NEURONTIN) 100 mg capsule Take 1 capsule by mouth four times daily for 180 days. 360 capsule 1 methocarbamol (ROBAXIN) 500 mg tablet Take 1 tablet by mouth three times a day for 14 days. 42 tablet 0 NIFEdipine ER (PROCARDIA XL) 30 mg 24 hr tablet Take 1 tablet by mouth once daily. (Patient not taking: Reported on 09/04/2024) 30 tablet 1 multivit-min/ferrous fumarate (MULTI VITAMIN ORAL) Take by mouth. (Patient not taking: Reported on 09/04/2024) No current facility-administered medications for this visit. Review of Systems: As shown in history All other systems reviewed and are negative. Objective Physical Exam BP 171/96 (BP Site: Left Arm, BP Position: Sitting, BP Cuff Size: Regular Adult) Pulse 82 Resp 16 LMP 02/11/2006 SpO2 100% Neurological Exam MENTAL STATUS: Alert, oriented to person, place and time and Follows commands CRANIAL NERVES: Visual godinez intact to confrontation, Face symmetric, Hearing intact to finger rub bilaterally, No dysarthria, Palate elevates symmetrically, Tongue protrudes midline, and Shoulder shrug intact and symmetric MOTOR: No drift and Normal tone MOTOR STRENGTH: Upper and lower extremity 5/5 bilaterally REFLEXES: UE and LE reflexes are equal and reactive SENSATION: Intact light touch COORDINATION: Finger-to- nose-finger intact bilaterally GAIT: Normal-based TANDEM good Data Diagnostic tests reviewed for today's visit: LABS: Lab Results Component Value Date PLT 278 08/20/2024 HB 13.3 08/20/2024 HCT 40.1 08/20/2024 ALB 4.4 08/20/2024 CA 9.7 08/20/2024 TBILI 0.4 08/20/2024 ALKPHOS 83 08/20/2024 AST 28 08/20/2024 GLUC 98 08/20/2024 BUN 13 08/20/2024 NA 141 08/20/2024 K 3.6 (L) 08/20/2024 CHLOR 104 08/20/2024 CO2 29 08/20/2024 ANION 8 08/20/2024 ALT 29 08/20/2024 Lab Results Component Value Date WSR 2 08/25/2024 CRP <0.3 08/25/2024 No results found for: USCRP Lab Results Component Value Date CHOL 165 06/13/2022 CHOL 175 05/08/2021 CHOL 185 06/12/2018 Lab Results Component Value Date LDL 100 (H) 06/13/2022 LDL 103 (H) 05/08/2021 LDL 120 (H) 06/12/2018 Lab Results Component Value Date HDL 51 06/13/2022 HDL 54 05/08/2021 HDL 52 06/12/2018 Lab Results Component Value Date TG 69 06/13/2022 TG 90 05/08/2021 TG 67 06/12/2018 Lab Results Component Value Date HBA1C 5.1 05/08/2021 Lab Results Component Value Date TSH 1.150 08/25/2024 TSH 1.280 05/07/2023 TSH 0.535 05/09/2021 Lab Results Component Value Date B12 1,385 (H) 08/25/2024 B12 >2,000 (H) 12/28/2023 B12 >2,000 (H) 05/09/2021 IMAGING: Last MRI Cervical Spine - Impression Only MRI CERVICAL SPINE WO IVCON Exam End: 01/14/2024 3:13 PM (Final result) Impression: IMPRESSION: Normal MRI brain. No acute intracranial abnormality. Normal intracranial MRV. No evidence of intracranial venous thrombosis or focal significant stenosis. Developmental cervical canal stenosis with mild superimposed degenerative changes causing slight impingement of the cord and multilevel bony foraminal narrowing as detailed above.... MRI Report MRV BRAIN WO/W IVCON Exam End: 01/14/2024 3:13 PM (Final result) Narrative: * * *Final Report* * * DATE OF EXAM: Jan 14 2024 3:12PM [facility] [id number] - MRV BRAIN WO/W IVCON / PROCEDURE REASON: Dural venous sinus thrombosis suspected * * * * Physician Interpretation * * * * EXAMINATION: MRI CERVICAL SPINE WO IVCON, MRI BRAIN WO/W IVCON, MRV BRAIN WO/W IVCON CLINICAL HISTORY: Worsening headache for 6-8 months with left facial numbness. TECHNIQUE: Routine intracranial mass protocol with and without gadolinium. 2-D [id number] intracranial MRV, and coronal gradient echo volume acquisition of the intracranial venous circulation with and without gadolinium with 2D multiplanar and 3D maximum intensity projections calculated on the imaging workstation under physician supervision. Routine cervical spine MR protocol without gadolinium. MQ: [id number]_2 MQ: MRCWOW_3 Contrast: 8 mL Dotarem IV COMPARISON: CT brain 01/14/2024 and MRI cervical spine 01/12/2017 RESULT: BRAIN: Acute Change: No apparent acute intracranial process. Hemorrhage: No evidence of prior parenchymal hemorrhage on SWI. Mass Lesion/ Mass Effect: No evidence of an intracranial mass or extra-axial fluid collection. No abnormal parenchymal or leptomeningeal enhancement is noted otherwise following contrast administration. No significant mass effect. Chronic Change: The white matter is within normal limits of signal intensity for age. Parenchyma: No significant volume loss for age. The brain parenchyma is otherwise within normal limits of signal intensity and morphology. Ventricles: Normal caliber and morphology. Skull Base: Hypothalamic and pituitary region are grossly normal. Craniocervical junction is normal. No significant marrow replacement process. Vasculature: Major intracranial arterial structures show typical flow void, suggesting patency by spin echo criteria. Other: The paranasal sinuses are clear. Trace left mastoid effusion. MR VENOGRAM: Superior sagittal sinus, straight sinus, vein of saul, bilateral internal cerebral veins, bilateral basal veins of arvin, bilateral transverse sinuses, bilateral sigmoid sinuses, and proximal internal jugular veins are patent and within normal limits of caliber and configuration. No evidence of intraluminal filling defect or focal significant stenosis on the 2-D somr-ug-[id number] and gadolinium-enhanced acquisitions. Bilateral cavernous sinuses are symmetric. CERVICAL: Counting reference: Craniocervical junction. Alignment: Alignment is anatomic. Relative narrowing of the canal and foramina given developmentally short pedicles. Craniocervical junction: Craniocervical junction is normal. Cord: The visualized cord is within normal limits of signal intensity but is compressed as outlined below. Bone marrow signal/fracture: No apparent pathologic marrow infiltration. No findings to suggest sequelae of acute or chronic fracture. Cervical soft tissues: The paraspinal soft tissues are within normal limits. C2-C3: Canal and foramina are patent. C3-C4: Mild disc height loss. Small disc osteophyte complex with slight impingement of the adjacent spinal cord in view of the developmentally small canal. Uncovertebral resulting moderate left foraminal stenosis. C4-C5: Mild disc height loss. Mild disc osteophyte complex causing slight impingement of the cord in view of the developmentally small canal. Uncinate and facet hypertrophy with moderate-severe left and moderate right foraminal stenosis. C5-C6: Mild disc height loss. Disc osteophyte complex abutting the ventral surface of the cord without significant cord compression. Facet and uncinate process hypertrophy causes moderate left and mild right foraminal stenosis. C6-C7: Mild disc height loss. Disc osteophyte complex which is eccentric to the left of midline and also abuts the ventral surface of the cord without significant cord compression.. Uncovertebral joint hypertrophy with mild-moderate left and mild right foraminal stenosis C7-T1: Canal and foramina are patent. Impression: IMPRESSION: Normal MRI brain. No acute intracranial abnormality. Normal intracranial MRV. No evidence of intracranial venous thrombosis or focal significant stenosis. Developmental cervical canal stenosis with mild superimposed degenerative changes causing slight impingement of the cord and multilevel bony foraminal narrowing as detailed above. Cervical Anatomic Variant: None. Assume 7 cervical vertebrae with counting from the craniocervical junction. Unix Consultant: ROSA Transcribe Date/Time: Jan 14 2024 3:29P Dictated by : RHONA BEGUM DO This examination was interpreted and the report reviewed and electronically signed by: RAJEEV JACK MD on Jan 14 2024 4:28PM EST No results found. Social Drivers of Health Tobacco Use: Medium Risk (08/08/2024) Patient History Smoking Tobacco Use: Former Smokeless Tobacco Use: Never Passive Exposure: Not on file Alcohol Use: Unknown (04/29/2021) AUDIT-C Frequency of Alcohol Consumption: Patient declined Average Number of Drinks: Patient declined Frequency of Binge Drinking: Patient declined Financial Resource Strain: Unknown (04/29/2021) Overall Financial Resource Strain (CARDIA) Difficulty of Paying Living Expenses: Patient declined Food Insecurity: No Food Insecurity (01/15/2024) Hunger Vital Sign Worried About Running Out of Food in the Last Year: Never true Ran Out of Food in the Last Year: Never true Transportation Needs: No Transportation Needs (01/15/2024) PRAPARE - Transportation Lack of Transportation (Medical): No Lack of Transportation (Non-Medical): No Physical Activity: Unknown (04/29/2021) Exercise Vital Sign Days of Exercise per Week: Patient declined Minutes of Exercise per Session: Patient declined Stress: Unknown (04/29/2021) Citizen Of [place] of Occupational Health - Occupational Stress Questionnaire Feeling of Stress : Patient declined Social Connections: Not on file Intimate Partner Violence: Not on file (01/15/2024) Depression: Not at risk (12/17/2023) PHQ-2 PHQ-2 Score: 0 Housing Stability: Unknown (01/15/2024) Housing Stability Vital Sign Unable to Pay for Housing in the Last Year: No Number of Places Lived in the Last Year: Not on file Unstable Housing in the Last Year: No Utilities: Not At Risk (01/15/2024) [facility] Utilities Threatened with loss of utilities: No Area Deprivation Index: Medium Risk (07/29/2022) Area Deprivation Index National Score (1-100), lower number is lower risk: 64 State Score (1-10), lower number is lower risk: Not on file Data from: https://www.neighborhoodatlas.[place].[facility].edu/. Last address used for calculation: [address] Diagnosis: (M79.10) Myalgias IMP/PLAN: Giovanna Nation is 63 year old female, with left occipital neuralgia neckk and shoulder pain Restarting Gabapentin and muscle relaxant Office Visit on 09/04/24 CONSULT TO PHYSICAL THERAPY Carlotta Archer MD [facility] [place] Department of Neurology Total time in minutes spent with patient, reviewing records, labs, imaging, formulating plan, and documenting 30 minutes with more than 50% of the time spent in patient education/counselling/coordinati ng care with the patient and /or family. documented in this encounter [facility] 09-03-2024 Telephone encounter Note Giovanna is calling Leonarda Boykin MD today with concern regarding Results/ Labs Patient is calling in today for lab results. Patient has been identified by name and birthdate. Duration of symptoms: N/A Person calling: self Call patient at: at home [phone] (home) [phone] (cell) Was an appointment scheduled: No Closing statement: Results or non-symptom based questions: Thank you for calling [facility], your call will be returned within the next business day. Michael Tadeo [facility] 08-25-2024 Telephone encounter Note Pt saw Dr Boykin today for f/u Scheduled with vascular 09/24 [facility] 08-25-2024 Miscellaneous Notes Pt saw Dr Boykin today for f/u Scheduled with vascular 09/24 Please let patient know PVR (vascular testing of her legs) is normal. documented in this encounter [facility] 08-25-2024 Note HNO ID: [id number] Author: LEONARDA BOYKIN MD Service: ? Author Type: Physician Type: Progress Notes Filed: 08/25/2024 14:18 Note Text: Patient presents with: ER F/U: Multiple issues HPI: Giovanna Nation is a 63 year old female who presents to the office today for er follow up. C/o feeling like her whole body is in spasm. Started back in May in her abdomen, a tightening sensation. Now its all over. C/o weakness in her shoulders, pain in her shoulders. When she lays down at night, feels like her body is constricting or theres pressure on her body, like her veins and organs tighten up. Occurs in the daytime but not as bad. Has noticed some light red bumps on her arms, sternum for a few days. Feels cold. Arms tingling. Had covid in 2019, then in 05/2021 had severe depression - admitted to [facility]. Did get better Rsv vaccine in 04/2023 - had lunch with her brother and got sick that day, cough, sob. Had lunch with her brother again in April and may in 2023 Had cbc, cmp, cta abd/pelvis, ct lumbar spine Was taking gabapentin for headaches, but stopped it. 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 mention of hyperactivity Adult Closed fracture of distal end of left radius 08/21/2016 Excessive or frequent menstruation History of colonoscopy 12/2020 Myalgia and myositis, unspecified Primary hypertension 12/30/2023 PAST SURGICAL HISTORY Procedure Laterality Date APPENDECTOMY APPENDECTOMY HX LIG/TRNSXJ FLP TUBE ABDL/VAG APPR UNI/BI Tubal ligation FAMILY HISTORY Problem Relation Age of Onset Cancer Mother Cervical cancer- treated Psychiatry Sister suicide Ischemic Heart Disease Brother 60 [place], heavy smoker, Etoh Psychiatry Son Opoid dependency Cancer Other Niece (sister's daughter) Social History Tobacco Use Smoking status: Former Current packs/day: 0.50 Types: Cigarettes Smokeless tobacco: Never Vaping Use Vaping status: Former Substance Use Topics Alcohol use: No Drug use: Never ACTIVE PROBLEM LIST Myalgia and Myositis, Unspecified Shoulder Stiffness Radiculopathy, Cervical Region 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 Primary Osteoarthritis of First Carpometacarpal Joint of Left Hand Lateral Epicondylitis of Left Elbow Cubital Tunnel Syndrome On Left Pain in Left Wrist Chronic Left Shoulder Pain Pain in Left Elbow Numbness and Tingling in Left Upper Extremity Tobacco Abuse, in Remission Vitamin D Deficiency Vitamin B12 Deficiency Mdd (Major Depressive Disorder), Recurrent Episode, Severe (Hcc) Acute Pain of Right Shoulder New Daily Persistent Headache Adhd Primary Hypertension Left Facial Numbness Headache Raynaud's Disease Without Gangrene ALLERGIES Allergen Reactions Flovent [Fluticason* Other: See Comments took breath away Penicillins Rash Prednisone Mental Status Change Depression MEDICATIONS: NIFEdipine ER (PROCARDIA XL) 30 mg 24 hr tablet Take 1 tablet by mouth once daily. losartan-hydroCHLOROthiazide (HYZAAR) 50-12.5 mg per tablet Take 1 tablet by mouth once daily. gabapentin (NEURONTIN) 100 mg capsule Take 1 capsule by mouth four times daily for 180 days. methocarbamol (ROBAXIN) 500 mg tablet Take 1 tablet by mouth three times a day for 14 days. multivit-min/ferrous fumarate (MULTI VITAMIN ORAL) Take by mouth. (Patient not taking: Reported on 08/25/2024) EXAM:BP 136/78 Pulse 86 Temp 37 ?C (98.6 ?F) (Temporal) Ht 160 cm (5' 2.99) Wt 45.9 kg (101 lb 3.1 oz) LMP 02/11/2006 SpO2 100% BMI 17.93 kg/m? Last Wt 08/25/24 : 45.9 kg (101 lb 3.1 oz) 08/20/24 : 45.4 kg (100 lb) 08/08/24 : 45.6 kg (100 lb 8.5 oz) 07/28/24 : 45 kg (99 lb 3.3 oz) PHYSICAL EXAM: General Appearance: Well appearing, alert, in no acute distress, well-hydrated, well nourished.. Skin: Skin color, texture, turgor normal, no suspicious rashes or lesions. Lymph Nodes: No cervical lymphadenopathy, No supraclavicular lymphadenopathy Head: Normocephalic, no masses, lesions, tenderness or abnormalities. (more content not included)... [facility] 08-25-2024 History of Presen t illness Narrative Patient presents with: ER F/U: Multiple issues HPI: Giovanna Nation is a 63 year old female who presents to the office today for er follow up. C/o feeling like her whole body is in spasm. Started back in May in her abdomen, a tightening sensation. Now its all over. C/o weakness in her shoulders, pain in her shoulders. When she lays down at night, feels like her body is constricting or theres pressure on her body, like her veins and organs tighten up. Occurs in the daytime but not as bad. Has noticed some light red bumps on her arms, sternum for a few days. Feels cold. Arms tingling. Had covid in 2019, then in 05/2021 had severe depression - admitted to [facility]. Did get better Rsv vaccine in 04/2023 - had lunch with her brother and got sick that day, cough, sob. Had lunch with her brother again in April and may in 2023 Had cbc, cmp, cta abd/pelvis, ct lumbar spine Was taking gabapentin for headaches, but stopped it. 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 mention of hyperactivity Adult Closed fracture of distal end of left radius 08/21/2016 Excessive or frequent menstruation History of colonoscopy 12/2020 Myalgia and myositis, unspecified Primary hypertension 12/30/2023 PAST SURGICAL HISTORY Procedure Laterality Date APPENDECTOMY APPENDECTOMY HX LIG/TRNSXJ FLP TUBE ABDL/VAG APPR UNI/BI Tubal ligation FAMILY HISTORY Problem Relation Age of Onset Cancer Mother Cervical cancer- treated Psychiatry Sister suicide Ischemic Heart Disease Brother 60 [place], heavy smoker, Etoh Psychiatry Son Opoid dependency Cancer Other Niece (sister's daughter) Social History Tobacco Use Smoking status: Former Current packs/day: 0.50 Types: Cigarettes Smokeless tobacco: Never Vaping Use Vaping status: Former Substance Use Topics Alcohol use: No Drug use: Never ACTIVE PROBLEM LIST Myalgia and Myositis, Unspecified Shoulder Stiffness Radiculopathy, Cervical Region 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 Primary Osteoarthritis of First Carpometacarpal Joint of Left Hand Lateral Epicondylitis of Left Elbow Cubital Tunnel Syndrome On Left Pain in Left Wrist Chronic Left Shoulder Pain Pain in Left Elbow Numbness and Tingling in Left Upper Extremity Tobacco Abuse, in Remission Vitamin D Deficiency Vitamin B12 Deficiency Mdd (Major Depressive Disorder), Recurrent Episode, Severe (Hcc) Acute Pain of Right Shoulder New Daily Persistent Headache Adhd Primary Hypertension Left Facial Numbness Headache Raynaud's Disease Without Gangrene ALLERGIES Allergen Reactions Flovent [Fluticason* Other: See Comments took breath away Penicillins Rash Prednisone Mental Status Change Depression MEDICATIONS: NIFEdipine ER (PROCARDIA XL) 30 mg 24 hr tablet Take 1 tablet by mouth once daily. losartan-hydroCHLOROthiazide (HYZAAR) 50-12.5 mg per tablet Take 1 tablet by mouth once daily. gabapentin (NEURONTIN) 100 mg capsule Take 1 capsule by mouth four times daily for 180 days. methocarbamol (ROBAXIN) 500 mg tablet Take 1 tablet by mouth three times a day for 14 days. multivit-min/ferrous fumarate (MULTI VITAMIN ORAL) Take by mouth. (Patient not taking: Reported on 08/25/2024) EXAM:BP 136/78 Pulse 86 Temp 37 C (98.6 F) (Temporal) Ht 160 cm (5' 2.99) Wt 45.9 kg (101 lb 3.1 oz) LMP 02/11/2006 SpO2 100% BMI 17.93 kg/m Last Wt 08/25/24 : 45.9 kg (101 lb 3.1 oz) 08/20/24 : 45.4 kg (100 lb) 08/08/24 : 45.6 kg (100 lb 8.5 oz) 07/28/24 : 45 kg (99 lb 3.3 oz) PHYSICAL EXAM: General Appearance: Well appearing, alert, in no acute distress, well-hydrated, well nourished.. Skin: Skin color, texture, turgor normal, no suspicious rashes or lesions. Lymph Nodes: No cervical lymphadenopathy, No supraclavicular lymphadenopathy Head: Normocephalic, no masses, lesions, tenderness or abnormalities. Eyes: Anicteric sclera. Pupils are equally round and reactive to light. Extraocular movements are intact. Nose/Sinuses: Nares normal, septum midline, mucosa normal, no drainage or sinus tenderness. Oropharynx: Lips, mucosa, and tongue normal, teeth and gums normal, oropharynx normal. Neck: Supple, no adenopathy; thyroid symmetric, normal size, no bruits. Lungs: Lungs clear to auscultation. No wheezing, rhonchi, rales. Heart: RRR without murmur, gallop, or rubs. No ectopy. Toes are pink, warm, brisk cap refill, right 4th digit slightly bluish relative to the others. Neurologic: Gait normal. ASSESSMENT/PLAN: 1. Myalgias - ICD9: 729.1, ICD10: M79.10 (primary diagnosis) - start methocarbamol prn, get labs, fu with vascular as scheduled. - CREATINE KINASE/CK - VITAMIN B12 - SYPHILIS TREPONEMAL W/REFLEX - SEDIMENTATION RATE, WESTERGREN - C-REACTIVE PROTEIN - RHEUMATOID FACTOR - METHOCARBAMOL 500 MG TABLET 2. Cold intolerance - ICD9: 780.99, ICD10: R68.89 - THYROID STIMULATING HORMONE - T4 FREE/FREE THYROXINE Leonarda Boykin documented in this encounter [facility] 08-25-2024 Telephone encounter Note Reason for Disposition [1] Other NON-URGENT information for PCP AND [2] does not require PCP response Protocols used: PCP Call - No [id number] [facility] 08-25-2024 Miscellaneous Notes Reason for Disposition [1] Other NON-URGENT information for PCP AND [2] does not require PCP response Protocols used: PCP Call - No [id number] Giovanna is calling Michael Flynn MD today with concern regarding Medication Problem. Her blood pressure medication is not agreeing with her. Patient has been identified by name and birthdate. Duration of symptoms: N/A Person calling: self Call patient at: at home [phone] (home) [phone] (cell) Was an appointment scheduled: Yes. Patient is seeing Dr. Boykin today at 1:00p. Will not need a call back unless RN feels it is necessary. Closing statement: Santa Tadeo documented in this encounter [facility] 08-25-2024 Telephone encounter Note Please let patient know PVR (vascular testing of her legs) is normal. [facility] 08-25-2024 Telephone encounter Note Giovanna is calling Michael Flynn MD today with concern regarding Medication Problem. Her blood pressure medication is not agreeing with her. Patient has been identified by name and birthdate. Duration of symptoms: N/A Person calling: self Call patient at: at home [phone] (home) [phone] (cell) Was an appointment scheduled: Yes. Patient is seeing Dr. Boykin today at 1:00p. Will not need a call back unless RN feels it is necessary. Closing statement: Santa Metcalf Pss [facility] Work Phone: 08-16-2024 Telephone encounter Note Attempted to reach patient. Left message with new order by PCP left on identified VM. Advised to call back to schedule. [facility] 08-16-2024 Miscellaneous Notes Attempted to reach patient. Left message with new order by PCP left on identified VM. Advised to call back to schedule. Consult placed Spoke with pt Pt very anxious about adding on more medications She does not know why she was started on baby aspirin She finds this all very 'alarming' and used this phrase several times She feels with her worsening hypertension and new Raynaud's, this is a vascular issue States she knows her body and feels something is wrong Asking if she can see a vascular doctor- requesting consult Aware she needs to schedule PVR, transferred to scheduling Nifedipine helps with vasospasm. Yes take both. Patient returning Alba's call from Dr. Flynn's office. She states she was taking 1/2 of one baby aspirin daily- but does not want to even take that. She thought that she was started on Nifedipine to thin her blood Asking if it is really necessary to take both aspirin and Nifedipine? Lety Eugene RN documented in this encounter [facility] 08-16-2024 Telephone encounter Note Consult placed [facility] 08-12-2024 Telephone encounter Note Spoke with pt Pt very anxious about adding on more medications She does not know why she was started on baby aspirin She finds this all very 'alarming' and used this phrase several times She feels with her worsening hypertension and new Raynaud's, this is a vascular issue States she knows her body and feels something is wrong Asking if she can see a vascular doctor- requesting consult Aware she needs to schedule PVR, transferred to scheduling [facility] 08-11-2024 Telephone encounter Note Nifedipine helps with vasospasm. Yes take both. [facility] 08-11-2024 Telephone encounter Note Patient returning Alba's call from Dr. Flynn's office. She states she was taking 1/2 of one baby aspirin daily- but does not want to even take that. She thought that she was started on Nifedipine to thin her blood Asking if it is really necessary to take both aspirin and Nifedipine? Lety Eugene RN [facility] 08-08-2024 Note HNO ID: [id number] Author: MICHAEL FLYNN MD Service: ? Author Type: Physician Type: Progress Notes Filed: 08/09/2024 13:52 Note Text: ESTABLISHED PATIENT Giovanna Nation is a 63 year old female presenting for Follow Up (Feet/toes tingly,burning, calves,ankles). HISTORY OF PRESENT ILLNESS 63 year old female here for an acute appointment for feet/ toe pain She first recalls 3 months ago she noted weakness/discomfort of lateral right lower leg > left lower leg. She took an [employer] board sanding down her feet quite a bit for calluses beginning of May. Afterwards noted felt somewhat swollen at underside of her toes at the base. She questions some discoloration of distal toes purple red She stepped on a wrought iron bench then pine bench and wounded right 4th toe Denies ulcerations of toes Feels as if something is wrapped around her ankles and calves at times Former smoker but does use nicotine lozenges. She saw Dr Boykin 07/28/24 for same issue. Prescribed amlodipine but could not tolerate it After 1 dose amlodipine - legs cramped so she discontinued it Taking aspirin 1/2 pill per day HISTORIES FAMILY HISTORY Problem Relation Age of Onset Cancer Mother Cervical cancer- treated Psychiatry Sister suicide Ischemic Heart Disease Brother 60 [place], heavy smoker, Etoh Psychiatry Son Opoid dependency Cancer Other Niece (sister's daughter) PAST MEDICAL HISTORY Diagnosis Date Attention deficit disorder without mention of hyperactivity Adult Closed fracture of distal end of left radius 08/21/2016 Excessive or frequent menstruation History of colonoscopy 12/2020 Myalgia and myositis, unspecified Primary hypertension 12/30/2023 PAST SURGICAL HISTORY Procedure Laterality Date APPENDECTOMY APPENDECTOMY HX LIG/TRNSXJ FLP TUBE ABDL/VAG APPR UNI/BI Tubal ligation Social History Tobacco Use Smoking status: Former Current packs/day: 0.50 Types: Cigarettes Smokeless tobacco: Never Vaping Use Vaping status: Former Substance Use Topics Alcohol use: No Drug use: Never Allergies: ALLERGIES Allergen Reactions Flovent [Fluticason* Other: See Comments took breath away Penicillins Rash Prednisone Mental Status Change Depression Medications: losartan-hydroCHLOROthiazide (HYZAAR) 50-12.5 mg per tablet Take 1 tablet by mouth once daily. BACLOFEN ORAL Take 5 mg by mouth two times a day. gabapentin (NEURONTIN) 100 mg capsule Take 1 capsule by mouth four times daily for 180 days. multivit-min/ferrous fumarate (MULTI VITAMIN ORAL) Take by mouth. atomoxetine (STRATTERA) 25 mg capsule Take 25 mg by mouth every morning. (Patient not taking: Reported on 07/28/2024) REVIEW OF SYSTEMS GENERAL: No weight loss, malaise or fevers. RESPIRATORY: Negative for cough, hemoptysis, wheezing or shortness of breath. CARDIOVASCULAR: Negative for chest pain, leg swelling or palpitations. All other systems reviewed and negative other than HPI. PHYSICAL EXAM BP 145/83 Pulse 74 Temp 36.3 ?C (97.4 ?F) Resp 16 Ht 160 cm (5' 2.99) Wt 45.6 kg (100 lb 8.5 oz) LMP 02/11/2006 SpO2 100% BMI 17.81 kg/m? General Appearance: Well appearing, alert, in no acute distress, well-hydrated, well nourished. +anxious. Lungs: Lungs clear to auscultation. No wheezing, rhonchi, rales.. Heart: RRR without murmur, gallop, or rubs. No ectopy. Extremities: No deformities, edema Good capillary refill. , Pulses: 2+ DP bilaterally no toe ulcerations but chintan red toes bilaterally No cords. Enzo's sign negative.. ASSESSMENT: ASSESSMENT/PLAN: 1. Raynaud's disease without gangrene - ICD9: 443.0, ICD10: I73.00 (primary diagnosis) - Discussed elimination of all nicotine products - Warmth measures - patient reports unable to tolerate amlodipine after 1 dose thus will change to nifedipine - NIFEDIPINE ER 30 MG TABLET,EXTENDED RELEASE 24 HR 2. Primary hypertension - ICD9: 401.9, ICD10: I10 - Uncontrolled - Continue current medications - losartan/HCTZ - Start nifedipine ER - Recommend home blood pressure monitoring, to bring results to next visit - Encouraged sodium restriction, DASH or Mediterranean diet - Recommend regular aerobic exercise - NIFEDIPINE ER 30 MG TABLET,EXTENDED RELEASE 24 HR 3. Pain in both feet - ICD9: 729.5, ICD10: M79.671, M79.672 - question due to Raynauds but will check KEVIN to evaluate for PAD - PVR ANK PRESS DEYA [facility] - NIFEDIPINE ER 30 MG TABLET,EXTENDED RELEASE 24 HR Michael Flynn MD [facility] 08-08-2024 History of Presen t illness Narrative ESTABLISHED PATIENT Giovanna Nation is a 63 year old female presenting for Follow Up (Feet/toes tingly,burning, calves,ankles). HISTORY OF PRESENT ILLNESS 63 year old female here for an acute appointment for feet/ toe pain She first recalls 3 months ago she noted weakness/discomfort of lateral right lower leg > left lower leg. She took an [employer] board sanding down her feet quite a bit for calluses beginning of May. Afterwards noted felt somewhat swollen at underside of her toes at the base. She questions some discoloration of distal toes purple red She stepped on a wrought iron bench then pine bench and wounded right 4th toe Denies ulcerations of toes Feels as if something is wrapped around her ankles and calves at times Former smoker but does use nicotine lozenges. She saw Dr Boykin 07/28/24 for same issue. Prescribed amlodipine but could not tolerate it After 1 dose amlodipine - legs cramped so she discontinued it Taking aspirin 1/2 pill per day HISTORIES FAMILY HISTORY Problem Relation Age of Onset Cancer Mother Cervical cancer- treated Psychiatry Sister suicide Ischemic Heart Disease Brother 60 [place], heavy smoker, Etoh Psychiatry Son Opoid dependency Cancer Other Niece (sister's daughter) PAST MEDICAL HISTORY Diagnosis Date Attention deficit disorder without mention of hyperactivity Adult Closed fracture of distal end of left radius 08/21/2016 Excessive or frequent menstruation History of colonoscopy 12/2020 Myalgia and myositis, unspecified Primary hypertension 12/30/2023 PAST SURGICAL HISTORY Procedure Laterality Date APPENDECTOMY APPENDECTOMY HX LIG/TRNSXJ FLP TUBE ABDL/VAG APPR UNI/BI Tubal ligation Social History Tobacco Use Smoking status: Former Current packs/day: 0.50 Types: Cigarettes Smokeless tobacco: Never Vaping Use Vaping status: Former Substance Use Topics Alcohol use: No Drug use: Never Allergies: ALLERGIES Allergen Reactions Flovent [Fluticason* Other: See Comments took breath away Penicillins Rash Prednisone Mental Status Change Depression Medications: losartan-hydroCHLOROthiazide (HYZAAR) 50-12.5 mg per tablet Take 1 tablet by mouth once daily. BACLOFEN ORAL Take 5 mg by mouth two times a day. gabapentin (NEURONTIN) 100 mg capsule Take 1 capsule by mouth four times daily for 180 days. multivit-min/ferrous fumarate (MULTI VITAMIN ORAL) Take by mouth. atomoxetine (STRATTERA) 25 mg capsule Take 25 mg by mouth every morning. (Patient not taking: Reported on 07/28/2024) REVIEW OF SYSTEMS GENERAL: No weight loss, malaise or fevers. RESPIRATORY: Negative for cough, hemoptysis, wheezing or shortness of breath. CARDIOVASCULAR: Negative for chest pain, leg swelling or palpitations. All other systems reviewed and negative other than HPI. PHYSICAL EXAM BP 145/83 Pulse 74 Temp 36.3 C (97.4 F) Resp 16 Ht 160 cm (5' 2.99) Wt 45.6 kg (100 lb 8.5 oz) LMP 02/11/2006 SpO2 100% BMI 17.81 kg/m General Appearance: Well appearing, alert, in no acute distress, well-hydrated, well nourished. +anxious. Lungs: Lungs clear to auscultation. No wheezing, rhonchi, rales.. Heart: RRR without murmur, gallop, or rubs. No ectopy. Extremities: No deformities, edema Good capillary refill. , Pulses: 2+ DP bilaterally no toe ulcerations but chintan red toes bilaterally No cords. Enzo's sign negative.. ASSESSMENT: ASSESSMENT/PLAN: 1. Raynaud's disease without gangrene - ICD9: 443.0, ICD10: I73.00 (primary diagnosis) - Discussed elimination of all nicotine products - Warmth measures - patient reports unable to tolerate amlodipine after 1 dose thus will change to nifedipine - NIFEDIPINE ER 30 MG TABLET,EXTENDED RELEASE 24 HR 2. Primary hypertension - ICD9: 401.9, ICD10: I10 - Uncontrolled - Continue current medications - losartan/HCTZ - Start nifedipine ER - Recommend home blood pressure monitoring, to bring results to next visit - Encouraged sodium restriction, DASH or Mediterranean diet - Recommend regular aerobic exercise - NIFEDIPINE ER 30 MG TABLET,EXTENDED RELEASE 24 HR 3. Pain in both feet - ICD9: 729.5, ICD10: M79.671, M79.672 - question due to Raynauds but will check KEVIN to evaluate for PAD - PVR ANK PRESS [facility] LAB - NIFEDIPINE ER 30 MG TABLET,EXTENDED RELEASE 24 HR Michael Flynn MD documented in this encounter [facility] 07-28-2024 Note HNO ID: [id number] Author: LEONARDA BOYKIN MD Service: ? Author Type: Physician Type: Progress Notes Filed: 08/18/2024 11:25 Note Text: Patient presents with: Follow Up: toes HPI: Giovanna Nation is a 63 year old female who presents to the office today for follow up. HTN Was on losartan/hctz, had episode of toe pain concerning for raynauds, switched to losartan and added amlodipine - took 1 dose and felt leg cramping. Resumed her losartan/hctz Since then feeling good Toes are still dusky, denies pain, cold intolerance. former smoker x 25 years, quit 5 years ago. 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 mention of hyperactivity Adult Closed fracture of distal end of left radius 08/21/2016 Excessive or frequent menstruation History of colonoscopy 12/2020 Myalgia and myositis, unspecified Primary hypertension 12/30/2023 PAST SURGICAL HISTORY Procedure Laterality Date APPENDECTOMY APPENDECTOMY HX LIG/TRNSXJ FLP TUBE ABDL/VAG APPR UNI/BI Tubal ligation FAMILY HISTORY Problem Relation Age of Onset Cancer Mother Cervical cancer- treated Psychiatry Sister suicide Ischemic Heart Disease Brother 60 [place], heavy smoker, Etoh Psychiatry Son Opoid dependency Cancer Other Niece (sister's daughter) Social History Tobacco Use Smoking status: Former Current packs/day: 0.50 Types: Cigarettes Smokeless tobacco: Never Vaping Use Vaping status: Former Substance Use Topics Alcohol use: No Drug use: Never ACTIVE PROBLEM LIST Myalgia and Myositis, Unspecified Shoulder Stiffness Radiculopathy, Cervical Region 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 Primary Osteoarthritis of First Carpometacarpal Joint of Left Hand Lateral Epicondylitis of Left Elbow Cubital Tunnel Syndrome On Left Pain in Left Wrist Chronic Left Shoulder Pain Pain in Left Elbow Numbness and Tingling in Left Upper Extremity Tobacco Abuse, in Remission Vitamin D Deficiency Vitamin B12 Deficiency Mdd (Major Depressive Disorder), Recurrent Episode, Severe (Hcc) Acute Pain of Right Shoulder New Daily Persistent Headache Adhd Primary Hypertension Left Facial Numbness Headache Raynaud's Disease Without Gangrene ALLERGIES Allergen Reactions Flovent [Fluticason* Other: See Comments took breath away Penicillins Rash Prednisone Mental Status Change Depression MEDICATIONS: BACLOFEN ORAL Take 5 mg by mouth two times a day. gabapentin (NEURONTIN) 100 mg capsule Take 1 capsule by mouth four times daily for 180 days. multivit-min/ferrous fumarate (MULTI VITAMIN ORAL) Take by mouth. NIFEdipine ER (PROCARDIA XL) 30 mg 24 hr tablet Take 1 tablet by mouth once daily. losartan-hydroCHLOROthiazide (HYZAAR) 50-12.5 mg per tablet Take 1 tablet by mouth once daily. EXAM:BP 132/84 Pulse 86 Temp 36.7 ?C (98.1 ?F) (Temporal) Ht 160 cm (5' 2.99) Wt 45 kg (99 lb 3.3 oz) LMP 02/11/2006 SpO2 100% BMI 17.58 kg/m? Last Wt 08/08/24 : 45.6 kg (100 lb 8.5 oz) 07/28/24 : 45 kg (99 lb 3.3 oz) 07/07/24 : 44.3 kg (97 lb 10.6 oz) 07/05/24 : 45.2 kg (99 lb 10.4 oz) PHYSICAL EXAM: General Appearance: Well appearing, alert, in no acute distress, well-hydrated, well nourished.. Skin: Skin color, texture, turgor normal, no suspicious rashes or lesions. Extremities: dusky toes but good cap refill, warm to touch. Peripheral Pulses: Normal. Neurologic: Gait normal. ASSESSMENT/PLAN: 1. Primary hypertension - ICD9: 401.9, ICD10: I10 (primary diagnosis) - Controlled - Continue current medications - Stop amlodipine - Recommend home blood pressure monitoring, to bring results to next visit - Encouraged sodium restriction, DASH or Mediterranean diet - Recommend regular aerobic exercise - LOSARTAN 50 MG-HYDROCHLOROTHIAZIDE 12.5 MG TABLET 2. Raynaud's disease without gangrene - ICD9: 443.0, ICD10: I73.00 - off amlodipine, could take baby aspirin daily if she would like but no absolute indication. Encourage daily exercise to help with circulation in general. Leonarda Boykin [facility] 07-28-2024 History of Presen t illness Narrative Patient presents with: Follow Up: toes HPI: Giovanna Nation is a 63 year old female who presents to the office today for follow up. HTN Was on losartan/hctz, had episode of toe pain concerning for raynauds, switched to losartan and added amlodipine - took 1 dose and felt leg cramping. Resumed her losartan/hctz Since then feeling good Toes are still dusky, denies pain, cold intolerance. former smoker x 25 years, quit 5 years ago. 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 mention of hyperactivity Adult Closed fracture of distal end of left radius 08/21/2016 Excessive or frequent menstruation History of colonoscopy 12/2020 Myalgia and myositis, unspecified Primary hypertension 12/30/2023 PAST SURGICAL HISTORY Procedure Laterality Date APPENDECTOMY APPENDECTOMY HX LIG/TRNSXJ FLP TUBE ABDL/VAG APPR UNI/BI Tubal ligation FAMILY HISTORY Problem Relation Age of Onset Cancer Mother Cervical cancer- treated Psychiatry Sister suicide Ischemic Heart Disease Brother 60 [place], heavy smoker, Etoh Psychiatry Son Opoid dependency Cancer Other Niece (sister's daughter) Social History Tobacco Use Smoking status: Former Current packs/day: 0.50 Types: Cigarettes Smokeless tobacco: Never Vaping Use Vaping status: Former Substance Use Topics Alcohol use: No Drug use: Never ACTIVE PROBLEM LIST Myalgia and Myositis, Unspecified Shoulder Stiffness Radiculopathy, Cervical Region 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 Primary Osteoarthritis of First Carpometacarpal Joint of Left Hand Lateral Epicondylitis of Left Elbow Cubital Tunnel Syndrome On Left Pain in Left Wrist Chronic Left Shoulder Pain Pain in Left Elbow Numbness and Tingling in Left Upper Extremity Tobacco Abuse, in Remission Vitamin D Deficiency Vitamin B12 Deficiency Mdd (Major Depressive Disorder), Recurrent Episode, Severe (Hcc) Acute Pain of Right Shoulder New Daily Persistent Headache Adhd Primary Hypertension Left Facial Numbness Headache Raynaud's Disease Without Gangrene ALLERGIES Allergen Reactions Flovent [Fluticason* Other: See Comments took breath away Penicillins Rash Prednisone Mental Status Change Depression MEDICATIONS: BACLOFEN ORAL Take 5 mg by mouth two times a day. gabapentin (NEURONTIN) 100 mg capsule Take 1 capsule by mouth four times daily for 180 days. multivit-min/ferrous fumarate (MULTI VITAMIN ORAL) Take by mouth. NIFEdipine ER (PROCARDIA XL) 30 mg 24 hr tablet Take 1 tablet by mouth once daily. losartan-hydroCHLOROthiazide (HYZAAR) 50-12.5 mg per tablet Take 1 tablet by mouth once daily. EXAM:BP 132/84 Pulse 86 Temp 36.7 C (98.1 F) (Temporal) Ht 160 cm (5' 2.99) Wt 45 kg (99 lb 3.3 oz) LMP 02/11/2006 SpO2 100% BMI 17.58 kg/m Last Wt 08/08/24 : 45.6 kg (100 lb 8.5 oz) 07/28/24 : 45 kg (99 lb 3.3 oz) 07/07/24 : 44.3 kg (97 lb 10.6 oz) 07/05/24 : 45.2 kg (99 lb 10.4 oz) PHYSICAL EXAM: General Appearance: Well appearing, alert, in no acute distress, well-hydrated, well nourished.. Skin: Skin color, texture, turgor normal, no suspicious rashes or lesions. Extremities: dusky toes but good cap refill, warm to touch. Peripheral Pulses: Normal. Neurologic: Gait normal. ASSESSMENT/PLAN: 1. Primary hypertension - ICD9: 401.9, ICD10: I10 (primary diagnosis) - Controlled - Continue current medications - Stop amlodipine - Recommend home blood pressure monitoring, to bring results to next visit - Encouraged sodium restriction, DASH or Mediterranean diet - Recommend regular aerobic exercise - LOSARTAN 50 MG-HYDROCHLOROTHIAZIDE 12.5 MG TABLET 2. Raynaud's disease without gangrene - ICD9: 443.0, ICD10: I73.00 - off amlodipine, could take baby aspirin daily if she would like but no absolute indication. Encourage daily exercise to help with circulation in general. Leonarda Boykin documented in this encounter [facility] 07-15-2024 Telephone encounter Note Spoke with patient and relayed message below, she verbalized understanding. La Nena Mack LPN [facility] 07-15-2024 Telephone encounter Note ----- Message from Leonarda Boykin MD sent at 07/08/2024 9:45 AM EST ----- Labs normal so far. One autoimmune test still pending but so far no signs of anything concerning. Dr. Boykin [facility] 07-15-2024 Miscellaneous Notes Spoke with patient and relayed message below, she verbalized understanding. La Nena Mack LPN ----- Message from Leonarda Boykin MD sent at 07/08/2024 9:45 AM EST ----- Labs normal so far. One autoimmune test still pending but so far no signs of anything concerning. Dr. Boykin documented in this encounter [facility] 07-15-2024 Telephone encounter Note Rx sent. [facility] 07-15-2024 Miscellaneous Notes Rx sent. Pt called again, asking to have this question addressed Seen by Dr. Boykin on 07/07/2024, advised there could be a medication change, patient declined at that time. Calling today, would like to have a rx for the Amlodipine and a rx for the Losartan without the HCTZ as in the note below. ASSESSMENT/PLAN: 1. Raynaud disease without gangrene - ICD9: 443.0, ICD10: I73.00 (primary diagnosis) - repeat labs, discussed starting amlodipine in place of HCTZ to help with symptoms. - SEDIMENTATION RATE, WESTERGREN - C-REACTIVE PROTEIN - ANTI NEUTRO CYTO AB Would like it addressed by PCP if Dr. Boykin not available. Please review and address. documented in this encounter [facility] 07-11-2024 Telephone encounter Note Pt called again, asking to have this question addressed [facility] 07-10-2024 Telephone encounter Note Seen by Dr. Boykin on 07/07/2024, advised there could be a medication change, patient declined at that time. Calling today, would like to have a rx for the Amlodipine and a rx for the Losartan without the HCTZ as in the note below. ASSESSMENT/PLAN: 1. Raynaud disease without gangrene - ICD9: 443.0, ICD10: I73.00 (primary diagnosis) - repeat labs, discussed starting amlodipine in place of HCTZ to help with symptoms. - SEDIMENTATION RATE, WESTERGREN - C-REACTIVE PROTEIN - ANTI NEUTRO CYTO AB Would like it addressed by PCP if Dr. Boykin not available. Please review and address. [facility] 07-07-2024 Note HNO ID: [id number] Author: LEONARDA BOYKIN MD Service: ? Author Type: Physician Type: Progress Notes Filed: 07/07/2024 16:33 Note Text: Patient presents with: Follow Up HPI: Giovanna Nation is a 63 year old female who presents to the office today for follow up. Was using an emery board in her feet a month ago to buff down some corns, also wore a pair of tight shoes all day, started to apply some moisturizer to help with skin care. The next day of wearing tight shoes, developed pain in her both big toes, right is worse. Toes were bluish looking, went to express care. - thought maybe chillblains. No rash or skin lesions. Had positive SHELBIE in the past, on 05/21/2023, had sed rate 78, crp 4.6 - ordered by previous pcp - repeat sed rate, crp normal. 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 mention of hyperactivity Adult Closed fracture of distal end of left radius 08/21/2016 Excessive or frequent menstruation History of colonoscopy 12/2020 Myalgia and myositis, unspecified Primary hypertension 12/30/2023 PAST SURGICAL HISTORY Procedure Laterality Date APPENDECTOMY APPENDECTOMY HX LIG/TRNSXJ FLP TUBE ABDL/VAG APPR UNI/BI Tubal ligation FAMILY HISTORY Problem Relation Age of Onset Cancer Mother Cervical cancer- treated Psychiatry Sister suicide Ischemic Heart Disease Brother 60 [place], heavy smoker, Etoh Psychiatry Son Opoid dependency Cancer Other Niece (sister's daughter) Social History Tobacco Use Smoking status: Former Current packs/day: 0.50 Types: Cigarettes Smokeless tobacco: Never Vaping Use Vaping status: Former Substance Use Topics Alcohol use: No Drug use: Never ACTIVE PROBLEM LIST Myalgia and Myositis, Unspecified Shoulder Stiffness Radiculopathy, Cervical Region 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 Primary Osteoarthritis of First Carpometacarpal Joint of Left Hand Lateral Epicondylitis of Left Elbow Cubital Tunnel Syndrome On Left Pain in Left Wrist Chronic Left Shoulder Pain Pain in Left Elbow Numbness and Tingling in Left Upper Extremity Tobacco Abuse, in Remission Vitamin D Deficiency Vitamin B12 Deficiency Mdd (Major Depressive Disorder), Recurrent Episode, Severe (Hcc) Acute Pain of Right Shoulder New Daily Persistent Headache Adhd Primary Hypertension Left Facial Numbness Headache ALLERGIES Allergen Reactions Flovent [Fluticason* Other: See Comments took breath away Penicillins Rash Prednisone Mental Status Change Depression MEDICATIONS: BACLOFEN ORAL Take 5 mg by mouth two times a day. gabapentin (NEURONTIN) 100 mg capsule Take 1 capsule by mouth four times daily for 180 days. multivit-min/ferrous fumarate (MULTI VITAMIN ORAL) Take by mouth. atomoxetine (STRATTERA) 25 mg capsule Take 25 mg by mouth every morning. losartan-hydroCHLOROthiazide (HYZAAR) 50-12.5 mg per tablet Take 1 tablet by mouth once daily. lotilaner (XDEMVY) 0.25 % ophthalmic solution Use 1 Drop in both eyes two times a day. (Patient not taking: Reported on 03/05/2024) erythromycin (ROMYCIN) 5 mg/gram (0.5 %) ophthalmic ointment Use 1 application in both eyes daily at bedtime. (Patient not taking: Reported on 06/25/2024) triamcinolone acetonide (KENALOG) 0.1 % cream Apply twice daily to pink papules on lower legs as needed (Patient not taking: Reported on 01/22/2024) lidocaine (LIDODERM) 5 % (Patient not taking: Reported on 01/22/2024) mecobalamin (B12 ACTIVE ORAL) Take by mouth. (Patient not taking: Reported on 01/22/2024) Cholecalciferol, Vitamin D3, 50 mcg (2,000 unit) cap Take 1 capsule by mouth once daily. (Patient not taking: Reported on 01/22/2024) EXAM:BP 116/68 Pulse 95 Temp 36.2 ?C (97.1 ?F) (Temporal) Ht 160 cm (5' 2.99) Wt 44.3 kg (97 lb 10.6 oz) LMP 02/11/2006 SpO2 100% BMI 17.30 kg/m? Last Wt 07/07/24 : 44.3 kg (97 lb 10.6 oz) 07/05/24 : 45.2 kg (99 lb 10.4 oz) 03/05/24 : 45.1 kg (99 lb 6.8 oz) (more content not included)... [facility] 07-07-2024 History of Presen t illness Narrative Patient presents with: Follow Up HPI: Giovanna Nation is a 63 year old female who presents to the office today for follow up. Was using an emery board in her feet a month ago to buff down some corns, also wore a pair of tight shoes all day, started to apply some moisturizer to help with skin care. The next day of wearing tight shoes, developed pain in her both big toes, right is worse. Toes were bluish looking, went to express care. - thought maybe chillblains. No rash or skin lesions. Had positive SHELBIE in the past, on 05/21/2023, had sed rate 78, crp 4.6 - ordered by previous pcp - repeat sed rate, crp normal. 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 mention of hyperactivity Adult Closed fracture of distal end of left radius 08/21/2016 Excessive or frequent menstruation History of colonoscopy 12/2020 Myalgia and myositis, unspecified Primary hypertension 12/30/2023 PAST SURGICAL HISTORY Procedure Laterality Date APPENDECTOMY APPENDECTOMY HX LIG/TRNSXJ FLP TUBE ABDL/VAG APPR UNI/BI Tubal ligation FAMILY HISTORY Problem Relation Age of Onset Cancer Mother Cervical cancer- treated Psychiatry Sister suicide Ischemic Heart Disease Brother 60 [place], heavy smoker, Etoh Psychiatry Son Opoid dependency Cancer Other Niece (sister's daughter) Social History Tobacco Use Smoking status: Former Current packs/day: 0.50 Types: Cigarettes Smokeless tobacco: Never Vaping Use Vaping status: Former Substance Use Topics Alcohol use: No Drug use: Never ACTIVE PROBLEM LIST Myalgia and Myositis, Unspecified Shoulder Stiffness Radiculopathy, Cervical Region 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 Primary Osteoarthritis of First Carpometacarpal Joint of Left Hand Lateral Epicondylitis of Left Elbow Cubital Tunnel Syndrome On Left Pain in Left Wrist Chronic Left Shoulder Pain Pain in Left Elbow Numbness and Tingling in Left Upper Extremity Tobacco Abuse, in Remission Vitamin D Deficiency Vitamin B12 Deficiency Mdd (Major Depressive Disorder), Recurrent Episode, Severe (Hcc) Acute Pain of Right Shoulder New Daily Persistent Headache Adhd Primary Hypertension Left Facial Numbness Headache ALLERGIES Allergen Reactions Flovent [Fluticason* Other: See Comments took breath away Penicillins Rash Prednisone Mental Status Change Depression MEDICATIONS: BACLOFEN ORAL Take 5 mg by mouth two times a day. gabapentin (NEURONTIN) 100 mg capsule Take 1 capsule by mouth four times daily for 180 days. multivit-min/ferrous fumarate (MULTI VITAMIN ORAL) Take by mouth. atomoxetine (STRATTERA) 25 mg capsule Take 25 mg by mouth every morning. losartan-hydroCHLOROthiazide (HYZAAR) 50-12.5 mg per tablet Take 1 tablet by mouth once daily. lotilaner (XDEMVY) 0.25 % ophthalmic solution Use 1 Drop in both eyes two times a day. (Patient not taking: Reported on 03/05/2024) erythromycin (ROMYCIN) 5 mg/gram (0.5 %) ophthalmic ointment Use 1 application in both eyes daily at bedtime. (Patient not taking: Reported on 06/25/2024) triamcinolone acetonide (KENALOG) 0.1 % cream Apply twice daily to pink papules on lower legs as needed (Patient not taking: Reported on 01/22/2024) lidocaine (LIDODERM) 5 % (Patient not taking: Reported on 01/22/2024) mecobalamin (B12 ACTIVE ORAL) Take by mouth. (Patient not taking: Reported on 01/22/2024) Cholecalciferol, Vitamin D3, 50 mcg (2,000 unit) cap Take 1 capsule by mouth once daily. (Patient not taking: Reported on 01/22/2024) EXAM:BP 116/68 Pulse 95 Temp 36.2 C (97.1 F) (Temporal) Ht 160 cm (5' 2.99) Wt 44.3 kg (97 lb 10.6 oz) LMP 02/11/2006 SpO2 100% BMI 17.30 kg/m Last Wt 07/07/24 : 44.3 kg (97 lb 10.6 oz) 07/05/24 : 45.2 kg (99 lb 10.4 oz) 03/05/24 : 45.1 kg (99 lb 6.8 oz) 01/22/24 : 45.9 kg (101 lb 3.1 oz) PHYSICAL EXAM: General Appearance: Well appearing, alert, in no acute distress, well-hydrated, well nourished.. Skin: Skin color, texture, turgor normal, no suspicious rashes or lesions. Extremities: No deformities, edema, clubbing or cyanosis. Dusky toes, sluggish capillary refill but warm. Peripheral Pulses: Normal. Neurologic: Gait normal. ASSESSMENT/PLAN: 1. Raynaud disease without gangrene - ICD9: 443.0, ICD10: I73.00 (primary diagnosis) - repeat labs, discussed starting amlodipine in place of HCTZ to help with symptoms. - SEDIMENTATION RATE, WESTERGREN - C-REACTIVE PROTEIN - ANTI NEUTRO CYTO AB 2. Hypokalemia - ICD9: 276.8, ICD10: E87.6 - BASIC METABOLIC PANEL Leonarda Boykin documented in this encounter [facility] 07-05-2024 Note HNO ID: [id number] Author: TAPAN MERCHANT MD Service: ? Author Type: Physician Type: Progress Notes Filed: 07/05/2024 11:14 Note Text: Patient presents with: Feet issues: DEYA feet feel like they are haji bitten, stinging x 3 weeks Pt has not been outside to get haji bite HPI: Foot pain: Duration: 3 weeks, not worsening or improving. Location: toes on both feet Character: stinging, like burn or haji bite. Radiation: bottoms of feet might be numb. No back, hip, or leg pain. Aggravating/Relieving: none. Pain relievers: none. Uses baclofen occasionally Associated: discolored toes Pertinent negatives: Denies fever, headache (year long headache is resolved), backache, leg pain, injury, significant outdoor cold exposure. MEDICATIONS: BACLOFEN ORAL Take 5 mg by mouth two times a day. gabapentin (NEURONTIN) 100 mg capsule Take 1 capsule by mouth four times daily for 180 days. multivit-min/ferrous fumarate (MULTI VITAMIN ORAL) Take by mouth. atomoxetine (STRATTERA) 25 mg capsule Take 25 mg by mouth every morning. losartan-hydroCHLOROthiazide (HYZAAR) 50-12.5 mg per tablet Take 1 tablet by mouth once daily. lotilaner (XDEMVY) 0.25 % ophthalmic solution Use 1 Drop in both eyes two times a day. (Patient not taking: Reported on 03/05/2024) erythromycin (ROMYCIN) 5 mg/gram (0.5 %) ophthalmic ointment Use 1 application in both eyes daily at bedtime. (Patient not taking: Reported on 06/25/2024) triamcinolone acetonide (KENALOG) 0.1 % cream Apply twice daily to pink papules on lower legs as needed (Patient not taking: Reported on 01/22/2024) lidocaine (LIDODERM) 5 % (Patient not taking: Reported on 01/22/2024) mecobalamin (B12 ACTIVE ORAL) Take by mouth. (Patient not taking: Reported on 01/22/2024) Cholecalciferol, Vitamin D3, 50 mcg (2,000 unit) cap Take 1 capsule by mouth once daily. (Patient not taking: Reported on 01/22/2024) ALLERGIES: ALLERGIES Allergen Reactions Flovent [Fluticason* Other: See Comments took breath away Penicillins Rash Prednisone Mental Status Change Depression VITALS: BP 120/82 Pulse 82 Temp 36.5 ?C (97.7 ?F) Resp 20 Wt 45.2 kg (99 lb 10.4 oz) LMP 02/11/2006 SpO2 99% BMI 17.65 kg/m? PHYSICAL EXAM: GEN: pleasant, no acute distress, alert HEENT: PERRL, EOMI, MMM NECK: supple, HEART: regular rate, regular rhythm, no murmurs LUNGS: clear to auscultation, no wheezes or crackles, no increased WOB EXT: no clubbing, no edema FEET: bilateral toes have varying levels of violaceous discoloration. Toes are tender to palpation. Capillary refill <5 seconds. Dorsalis pedis pulses 1+/4 and posterior tibial pulses are 2+/4. bilaterally. Normal coloration of soles and dorsal feet. ASSESSMENT/PLAN: 1. Chilblains, initial encounter - ICD9: 991.5, ICD10: T69.1XXA Low suspicion for embolization or bilateral multiple digit vascular occlusion. Hx of positive SHELBIE and elevated ESR with other rheumatologic markers negative 1 year ago when she had itching/tingling/color change in her toes. Treat likely chilblains with warming therapy (without temps high enough to risk of burning) and avoid cold. Schedule follow up with PCP or rheumatology. aTpan Merchant MD [facility] 07-05-2024 History of Presen t illness Narrative Patient presents with: Feet issues: DEYA feet feel like they are haji bitten, stinging x 3 weeks Pt has not been outside to get haji bite HPI: Foot pain: Duration: 3 weeks, not worsening or improving. Location: toes on both feet Character: stinging, like burn or haji bite. Radiation: bottoms of feet might be numb. No back, hip, or leg pain. Aggravating/Relieving: none. Pain relievers: none. Uses baclofen occasionally Associated: discolored toes Pertinent negatives: Denies fever, headache (year long headache is resolved), backache, leg pain, injury, significant outdoor cold exposure. MEDICATIONS: BACLOFEN ORAL Take 5 mg by mouth two times a day. gabapentin (NEURONTIN) 100 mg capsule Take 1 capsule by mouth four times daily for 180 days. multivit-min/ferrous fumarate (MULTI VITAMIN ORAL) Take by mouth. atomoxetine (STRATTERA) 25 mg capsule Take 25 mg by mouth every morning. losartan-hydroCHLOROthiazide (HYZAAR) 50-12.5 mg per tablet Take 1 tablet by mouth once daily. lotilaner (XDEMVY) 0.25 % ophthalmic solution Use 1 Drop in both eyes two times a day. (Patient not taking: Reported on 03/05/2024) erythromycin (ROMYCIN) 5 mg/gram (0.5 %) ophthalmic ointment Use 1 application in both eyes daily at bedtime. (Patient not taking: Reported on 06/25/2024) triamcinolone acetonide (KENALOG) 0.1 % cream Apply twice daily to pink papules on lower legs as needed (Patient not taking: Reported on 01/22/2024) lidocaine (LIDODERM) 5 % (Patient not taking: Reported on 01/22/2024) mecobalamin (B12 ACTIVE ORAL) Take by mouth. (Patient not taking: Reported on 01/22/2024) Cholecalciferol, Vitamin D3, 50 mcg (2,000 unit) cap Take 1 capsule by mouth once daily. (Patient not taking: Reported on 01/22/2024) ALLERGIES: ALLERGIES Allergen Reactions Flovent [Fluticason* Other: See Comments took breath away Penicillins Rash Prednisone Mental Status Change Depression VITALS: BP 120/82 Pulse 82 Temp 36.5 C (97.7 F) Resp 20 Wt 45.2 kg (99 lb 10.4 oz) LMP 02/11/2006 SpO2 99% BMI 17.65 kg/m PHYSICAL EXAM: GEN: pleasant, no acute distress, alert HEENT: PERRL, EOMI, MMM NECK: supple, HEART: regular rate, regular rhythm, no murmurs LUNGS: clear to auscultation, no wheezes or crackles, no increased WOB EXT: no clubbing, no edema FEET: bilateral toes have varying levels of violaceous discoloration. Toes are tender to palpation. Capillary refill <5 seconds. Dorsalis pedis pulses 1+/4 and posterior tibial pulses are 2+/4. bilaterally. Normal coloration of soles and dorsal feet. ASSESSMENT/PLAN: 1. Chilblains, initial encounter - ICD9: 991.5, ICD10: T69.1XXA Low suspicion for embolization or bilateral multiple digit vascular occlusion. Hx of positive SHELBIE and elevated ESR with other rheumatologic markers negative 1 year ago when she had itching/tingling/color change in her toes. Treat likely chilblains with warming therapy (without temps high enough to risk of burning) and avoid cold. Schedule follow up with PCP or rheumatology. Tapan Merchant MD documented in this encounter [facility] 06-25-2024 History of Presen t illness Narrative Assessment and Plan 1. Dry eye syndrome of bilateral lacrimal glands 2. Meibomian gland dysfunction (MGD) of upper and lower lids of both eyes 3. Eye pain, left -RESOLVED difficulty opening left eye in the morning, numbness in left side of face. Pain 09/22 -(+) sensitivity to light -Trigger: RSV vaccine 04/2023 -MRI brain within normal limits -Anti-nuclear antibody positive, anti-SSA/SSB within normal limits Dry Eye Treatment: Artificial tears Effective?: No Lid hygiene Effective?: No Steroid drops Effective?: Yes Demodex treatment Comments: Expensive Plan: -doing well, steroid drop helped -follow-up Dr. Muñoz for routine. Me as needed if flare=up for inflammation control (steroids vs restasis) I have confirmed and edited as necessary the relevant ophthalmic history, ROS, and the neuro exam findings as obtained by others. I have seen and examined Giovanna Nation. I have discussed the case and the management of this patient's care with the Resident/Fellow, if applicable. I also have reviewed and agree with the assessment and plan as stated above and agree with all of its relevant components. Starr Haines MD documented in this encounter [facility] 06-25-2024 Note HNO ID: [id number] Author: STARR HAINES MD Service: ? Author Type: Physician Type: Progress Notes Filed: 06/25/2024 11:09 Note Text: Assessment and Plan 1. Dry eye syndrome of bilateral lacrimal glands 2. Meibomian gland dysfunction (MGD) of upper and lower lids of both eyes 3. Eye pain, left -RESOLVED difficulty opening left eye in the morning, numbness in left side of face. Pain /10 -(+) sensitivity to light -Trigger: RSV vaccine 04/2023 -MRI brain within normal limits -Anti-nuclear antibody positive, anti-SSA/SSB within normal limits Dry Eye Treatment: Artificial tears Effective?: No Lid hygiene Effective?: No Steroid drops Effective?: Yes Demodex treatment Comments: Expensive Plan: -doing well, steroid drop helped -follow-up Dr. Muñoz for routine. Me as needed if flare=up for inflammation control (steroids vs restasis) I have confirmed and edited as necessary the relevant ophthalmic history, ROS, and the neuro exam findings as obtained by others. I have seen and examined Giovanna Nation. I have discussed the case and the management of this patient's care with the Resident/Fellow, if applicable. I also have reviewed and agree with the assessment and plan as stated above and agree with all of its relevant components. Starr Haines MD [facility] 06-05-2024 Note HNO ID: [id number] Author: CARLOTTA ARCHER MD Service: ? Author Type: Physician Type: Progress Notes Filed: 06/05/2024 11:45 Note Text: [facility] [place] Patient presents with: Follow Up: headaches Accompanied by Self. Interval history Pleasant 63 years old woman ,who is here for follow up For headache and tinnitus ,as reaction to the vaccine . She would like to get rid of tinnitus Headache is intermittent since May 12 Gone until mayMay 25 came back but then gone quickly. 2 days ago had mild headache Feeling skull is tender with the headache Not sleeping well at night ,only few hours Plan To increase gabapentin to /07/17 At night ,each is 100 mg capsule New prescription written Reaction to vaccine . HISTORY AND PHYSICAL Ms. Nation is a 63 year old female, being seen today for headache for 8 months . She was admitted to the hospital and had extensive work up MRI MRV with no acute lesion. Headache is left temporal parietal ,started severe throbbing ,now is mild dull aching Constant,daily but doesn't interfere with any of her daily activities. Left facial numbness with the onset of headache All these problems happened only after RSV vaccine ,never had these symptoms before the vaccine No previous history of migriane , Allergic to steroids ,affected her mentally She also has Neck pain intermittently and currently getting physical therapy for her neck as well as dry needling for the muscles With good relief Past Medical History PAST MEDICAL HISTORY Diagnosis Date Attention deficit disorder without mention of hyperactivity Adult Closed fracture of distal end of left radius 08/21/2016 Excessive or frequent menstruation History of colonoscopy 12/2020 Myalgia and myositis, unspecified Primary hypertension 12/30/2023 Current Medications Current Outpatient Medications Medication Sig Dispense Refill BACLOFEN ORAL Take 5 mg by mouth two times a day. erythromycin (ROMYCIN) 5 mg/gram (0.5 %) ophthalmic ointment Use 1 application in both eyes daily at bedtime. 3.5 g 2 multivit-min/ferrous fumarate (MULTI VITAMIN ORAL) Take by mouth. atomoxetine (STRATTERA) 25 mg capsule Take 25 mg by mouth every morning. losartan-hydroCHLOROthiazide (HYZAAR) 50-12.5 mg per tablet Take 1 tablet by mouth once daily. 90 tablet 3 gabapentin (NEURONTIN) 100 mg capsule Take 1 capsule by mouth four times daily for 180 days. 360 capsule 1 lotilaner (XDEMVY) 0.25 % ophthalmic solution Use 1 Drop in both eyes two times a day. (Patient not taking: Reported on 03/05/2024) 10 mL 1 triamcinolone acetonide (KENALOG) 0.1 % cream Apply twice daily to pink papules on lower legs as needed (Patient not taking: Reported on 01/22/2024) 28.4 g 2 lidocaine (LIDODERM) 5 % (Patient not taking: Reported on 01/22/2024) mecobalamin (B12 ACTIVE ORAL) Take by mouth. (Patient not taking: Reported on 01/22/2024) Cholecalciferol, Vitamin D3, 50 mcg (2,000 unit) cap Take 1 capsule by mouth once daily. (Patient not taking: Reported on 01/22/2024) No current facility-administered medications for this visit. Review of Systems: As shown in history All other systems reviewed and are negative. Objective Physical Exam BP 113/78 (BP Site: Right Leg, BP Position: Sitting, BP Cuff Size: Regular Adult) Pulse 88 Resp 16 LMP 02/11/2006 SpO2 100% Neurological Exam MENTAL STATUS: Alert, oriented to person, place and time and Follows commands CRANIAL NERVES: Visual godinez intact to confrontation, Face symmetric, Hearing intact to finger rub bilaterally, No dysarthria, Palate elevates symmetrically, Tongue protrudes midline, and Shoulder shrug intact and symmetric MOTOR: No drift and Normal tone MOTOR STRENGTH: Upper and lower extremity 5/5 bilaterally REFLEXES: UE and LE reflexes are equal and reactive SENSATION: Intact light touch COORDINATION: Finger-to- nose-finger intact bilaterally GAIT: Normal-based TANDEM good Data Diagnostic tests reviewed for today's visit: LABS: Lab Results Component Value Date PLT 284 01/14/2024 HB 13.9 01/14/2024 HCT 41.1 01/14/2024 ALB 4.1 01/14/2024 CA 9.3 01/14/2024 TBILI 0.4 01/14/2024 ALKPHOS 70 01/14/2024 AST 17 01/14/2024 GLUC 97 01/14/2024 BUN 16 01/14/2024 NA 136 01/14/2024 K 3.3 (L) 01/14/2024 CHLOR 100 01/14/2024 CO2 29 01/14/2024 ANION 7 (L) 01/14/2024 ALT 10 01/14/2024 Lab Results Component Value Date WSR 26 (H) 06/08/2023 CRP <0.3 01/14/2024 No results found for: USCRP Lab Results Component Value Date CHOL 165 06/13/2022 CHOL 175 05/08/2021 CHOL 185 06/12/2018 Lab Results Component Value Date LDL 100 (H) 06/13/2022 LDL 103 (H) 05/08/2021 LDL 120 (H) 06/12/2018 Lab Results Component Value Date HDL 51 06/13/2022 HDL 54 05/08/2021 HDL 52 06/12/2018 Lab Results Component Value Date TG 69 06/13/2022 TG 90 05/08/2021 TG 67 06/12/2018 Lab Results Component (more content not included)... [facility] 06-05-2024 History of Presen t illness Narrative Images from the original note were not included. [facility] [place] Patient presents with: Follow Up: headaches Accompanied by Self. Interval history Pleasant 63 years old woman ,who is here for follow up For headache and tinnitus ,as reaction to the vaccine . She would like to get rid of tinnitus Headache is intermittent since May 12 Gone until mayMay 25 came back but then gone quickly. 2 days ago had mild headache Feeling skull is tender with the headache Not sleeping well at night ,only few hours Plan To increase gabapentin to 1/1/2 At night ,each is 100 mg capsule New prescription written Reaction to vaccine . HISTORY AND PHYSICAL Ms. Nation is a 63 year old female, being seen today for headache for 8 months . She was admitted to the hospital and had extensive work up MRI MRV with no acute lesion. Headache is left temporal parietal ,started severe throbbing ,now is mild dull aching Constant,daily but doesn't interfere with any of her daily activities. Left facial numbness with the onset of headache All these problems happened only after RSV vaccine ,never had these symptoms before the vaccine No previous history of migriane , Allergic to steroids ,affected her mentally She also has Neck pain intermittently and currently getting physical therapy for her neck as well as dry needling for the muscles With good relief Past Medical History PAST MEDICAL HISTORY Diagnosis Date Attention deficit disorder without mention of hyperactivity Adult Closed fracture of distal end of left radius 08/21/2016 Excessive or frequent menstruation History of colonoscopy 12/2020 Myalgia and myositis, unspecified Primary hypertension 12/30/2023 Current Medications Current Outpatient Medications Medication Sig Dispense Refill BACLOFEN ORAL Take 5 mg by mouth two times a day. erythromycin (ROMYCIN) 5 mg/gram (0.5 %) ophthalmic ointment Use 1 application in both eyes daily at bedtime. 3.5 g 2 multivit-min/ferrous fumarate (MULTI VITAMIN ORAL) Take by mouth. atomoxetine (STRATTERA) 25 mg capsule Take 25 mg by mouth every morning. losartan-hydroCHLOROthiazide (HYZAAR) 50-12.5 mg per tablet Take 1 tablet by mouth once daily. 90 tablet 3 gabapentin (NEURONTIN) 100 mg capsule Take 1 capsule by mouth four times daily for 180 days. 360 capsule 1 lotilaner (XDEMVY) 0.25 % ophthalmic solution Use 1 Drop in both eyes two times a day. (Patient not taking: Reported on 03/05/2024) 10 mL 1 triamcinolone acetonide (KENALOG) 0.1 % cream Apply twice daily to pink papules on lower legs as needed (Patient not taking: Reported on 01/22/2024) 28.4 g 2 lidocaine (LIDODERM) 5 % (Patient not taking: Reported on 01/22/2024) mecobalamin (B12 ACTIVE ORAL) Take by mouth. (Patient not taking: Reported on 01/22/2024) Cholecalciferol, Vitamin D3, 50 mcg (2,000 unit) cap Take 1 capsule by mouth once daily. (Patient not taking: Reported on 01/22/2024) No current facility-administered medications for this visit. Review of Systems: As shown in history All other systems reviewed and are negative. Objective Physical Exam BP 113/78 (BP Site: Right Leg, BP Position: Sitting, BP Cuff Size: Regular Adult) Pulse 88 Resp 16 LMP 02/11/2006 SpO2 100% Neurological Exam MENTAL STATUS: Alert, oriented to person, place and time and Follows commands CRANIAL NERVES: Visual godinez intact to confrontation, Face symmetric, Hearing intact to finger rub bilaterally, No dysarthria, Palate elevates symmetrically, Tongue protrudes midline, and Shoulder shrug intact and symmetric MOTOR: No drift and Normal tone MOTOR STRENGTH: Upper and lower extremity 5/5 bilaterally REFLEXES: UE and LE reflexes are equal and reactive SENSATION: Intact light touch COORDINATION: Finger-to- nose-finger intact bilaterally GAIT: Normal-based TANDEM good Data Diagnostic tests reviewed for today's visit: LABS: Lab Results Component Value Date PLT 284 01/14/2024 HB 13.9 01/14/2024 HCT 41.1 01/14/2024 ALB 4.1 01/14/2024 CA 9.3 01/14/2024 TBILI 0.4 01/14/2024 ALKPHOS 70 01/14/2024 AST 17 01/14/2024 GLUC 97 01/14/2024 BUN 16 01/14/2024 NA 136 01/14/2024 K 3.3 (L) 01/14/2024 CHLOR 100 01/14/2024 CO2 29 01/14/2024 ANION 7 (L) 01/14/2024 ALT 10 01/14/2024 Lab Results Component Value Date WSR 26 (H) 06/08/2023 CRP <0.3 01/14/2024 No results found for: USCRP Lab Results Component Value Date CHOL 165 06/13/2022 CHOL 175 05/08/2021 CHOL 185 06/12/2018 Lab Results Component Value Date LDL 100 (H) 06/13/2022 LDL 103 (H) 05/08/2021 LDL 120 (H) 06/12/2018 Lab Results Component Value Date HDL 51 06/13/2022 HDL 54 05/08/2021 HDL 52 06/12/2018 Lab Results Component Value Date TG 69 06/13/2022 TG 90 05/08/2021 TG 67 06/12/2018 Lab Results Component Value Date HBA1C 5.1 05/08/2021 Lab Results Component Value Date TSH 1.280 05/07/2023 TSH 0.535 05/09/2021 TSH 0.536 01/24/2021 Lab Results Component Value Date B12 >2,000 (H) 12/28/2023 B12 >2,000 (H) 05/09/2021 B12 932 01/26/2021 IMAGING: Last MRI Cervical Spine - Impression Only MRI CERVICAL SPINE WO IVCON Exam End: 01/14/2024 3:13 PM (Final result) Impression: IMPRESSION: Normal MRI brain. No acute intracranial abnormality. Normal intracranial MRV. No evidence of intracranial venous thrombosis or focal significant stenosis. Developmental cervical canal stenosis with mild superimposed degenerative changes causing slight impingement of the cord and multilevel bony foraminal narrowing as detailed above.... MRI Report MRV BRAIN WO/W IVCON Exam End: 01/14/2024 3:13 PM (Final result) Narrative: * * *Final Report* * * DATE OF EXAM: Jan 14 2024 3:12PM [facility] [id number] - MRV BRAIN WO/W IVCON / PROCEDURE REASON: Dural venous sinus thrombosis suspected * * * * Physician Interpretation * * * * EXAMINATION: MRI CERVICAL SPINE WO IVCON, MRI BRAIN WO/W IVCON, MRV BRAIN WO/W IVCON CLINICAL HISTORY: Worsening headache for 6-8 months with left facial numbness. TECHNIQUE: Routine intracranial mass protocol with and without gadolinium. 2-D alrq-bg-[id number] intracranial MRV, and coronal gradient echo volume acquisition of the intracranial venous circulation with and without gadolinium with 2D multiplanar and 3D maximum intensity projections calculated on the imaging workstation under physician supervision. Routine cervical spine MR protocol without gadolinium. MQ: MRBWOW_2 MQ: MRCWOW_3 Contrast: 8 mL Dotarem IV COMPARISON: CT brain 01/14/2024 and MRI cervical spine 01/12/2017 RESULT: BRAIN: Acute Change: No apparent acute intracranial process. Hemorrhage: No evidence of prior parenchymal hemorrhage on SWI. Mass Lesion/ Mass Effect: No evidence of an intracranial mass or extra-axial fluid collection. No abnormal parenchymal or leptomeningeal enhancement is noted otherwise following contrast administration. No significant mass effect. Chronic Change: The white matter is within normal limits of signal intensity for age. Parenchyma: No significant volume loss for age. The brain parenchyma is otherwise within normal limits of signal intensity and morphology. Ventricles: Normal caliber and morphology. Skull Base: Hypothalamic and pituitary region are grossly normal. Craniocervical junction is normal. No significant marrow replacement process. Vasculature: Major intracranial arterial structures show typical flow void, suggesting patency by spin echo criteria. Other: The paranasal sinuses are clear. Trace left mastoid effusion. MR VENOGRAM: Superior sagittal sinus, straight sinus, vein of saul, bilateral internal cerebral veins, bilateral basal veins of arvin, bilateral transverse sinuses, bilateral sigmoid sinuses, and proximal internal jugular veins are patent and within normal limits of caliber and configuration. No evidence of intraluminal filling defect or focal significant stenosis on the 2-D zicg-cr-lzrmhu and gadolinium-enhanced acquisitions. Bilateral cavernous sinuses are symmetric. CERVICAL: Counting reference: Craniocervical junction. Alignment: Alignment is anatomic. Relative narrowing of the canal and foramina given developmentally short pedicles. Craniocervical junction: Craniocervical junction is normal. Cord: The visualized cord is within normal limits of signal intensity but is compressed as outlined below. Bone marrow signal/fracture: No apparent pathologic marrow infiltration. No findings to suggest sequelae of acute or chronic fracture. Cervical soft tissues: The paraspinal soft tissues are within normal limits. C2-C3: Canal and foramina are patent. C3-C4: Mild disc height loss. Small disc osteophyte complex with slight impingement of the adjacent spinal cord in view of the developmentally small canal. Uncovertebral resulting moderate left foraminal stenosis. C4-C5: Mild disc height loss. Mild disc osteophyte complex causing slight impingement of the cord in view of the developmentally small canal. Uncinate and facet hypertrophy with moderate-severe left and moderate right foraminal stenosis. C5-C6: Mild disc height loss. Disc osteophyte complex abutting the ventral surface of the cord without significant cord compression. Facet and uncinate process hypertrophy causes moderate left and mild right foraminal stenosis. C6-C7: Mild disc height loss. Disc osteophyte complex which is eccentric to the left of midline and also abuts the ventral surface of the cord without significant cord compression.. Uncovertebral joint hypertrophy with mild-moderate left and mild right foraminal stenosis C7-T1: Canal and foramina are patent. Impression: IMPRESSION: Normal MRI brain. No acute intracranial abnormality. Normal intracranial MRV. No evidence of intracranial venous thrombosis or focal significant stenosis. Developmental cervical canal stenosis with mild superimposed degenerative changes causing slight impingement of the cord and multilevel bony foraminal narrowing as detailed above. Cervical Anatomic Variant: None. Assume 7 cervical vertebrae with counting from the craniocervical junction. Unix Consultant: ROSA Transcribe Date/Time: Jan 14 2024 3:29P Dictated by : RHONA BEGUM, DO This examination was interpreted and the report reviewed and electronically signed by: RAJEEV JACK MD on Jan 14 2024 4:28PM EST No results found. Social Determinants of Health Tobacco Use: Medium Risk (06/05/2024) Patient History Smoking Tobacco Use: Former Smokeless Tobacco Use: Never Passive Exposure: Not on file Alcohol Use: Unknown (04/29/2021) AUDIT-C Frequency of Alcohol Consumption: Patient declined Average Number of Drinks: Patient declined Frequency of Binge Drinking: Patient declined Financial Resource Strain: Unknown (04/29/2021) Overall Financial Resource Strain (CARDIA) Difficulty of Paying Living Expenses: Patient declined Food Insecurity: No Food Insecurity (01/15/2024) Hunger Vital Sign Worried About Running Out of Food in the Last Year: Never true Ran Out of Food in the Last Year: Never true Transportation Needs: No Transportation Needs (01/15/2024) PRAPARE - Transportation Lack of Transportation (Medical): No Lack of Transportation (Non-Medical): No Physical Activity: Unknown (04/29/2021) Exercise Vital Sign Days of Exercise per Week: Patient declined Minutes of Exercise per Session: Patient declined Stress: Unknown (04/29/2021) Citizen Of [place] of Occupational Health - Occupational Stress Questionnaire Feeling of Stress : Patient declined Social Connections: Not on file Intimate Partner Violence: Not At Risk (01/15/2024) Safe at Home? Fear of Current or Ex-Partner: Not on file Emotionally Abused: Not on file Physically Abused: Not on file Sexually Abused: Not on file Safe at Home?: Yes Depression: Not at risk (12/17/2023) PHQ-2 PHQ-2 Score: 0 Housing Stability: Unknown (01/15/2024) Housing Stability Vital Sign Unable to Pay for Housing in the Last Year: No Number of Places Lived in the Last Year: Not on file Unstable Housing in the Last Year: No Utilities: Not At Risk (01/15/2024) [facility] Utilities Threatened with loss of utilities: No Area Deprivation Index: Medium Risk (07/29/2022) Area Deprivation Index National Score (1-100), lower number is lower risk: 64 State Score (1-10), lower number is lower risk: Not on file Data from: https://www.neighborhoodatlas.ut [facility].[facility].edu/. Last address used for calculation: [address] [place] [address] Diagnosis: No diagnosis found. IMP/PLAN: Giovanna Nation is 63 year old female, here today for follow up after hospitalization for her headache Which improved and now is dull aching mild headache Increase Gabapentin to 4/day ,including 2 at night that will help her sleep better No orders found for this visit on 06/05/24. TSH BMP Carlotta Archer MD [facility] [place] Department of Neurology Total time in minutes spent with patient, reviewing records, labs, imaging, formulating plan, and documenting 30 minutes with more than 50% of the time spent in patient education/counselling/coordinati ng care with the patient and /or family. documented in this encounter [facility] 04-23-2024 Note HNO ID: [id number] Author: STARR HAINES MD Service: ? Author Type: Physician Type: Progress Notes Filed: 04/23/2024 14:45 Note Text: Assessment and Plan 1. Dry eye syndrome of bilateral lacrimal glands 2. Meibomian gland dysfunction (MGD) of upper and lower lids of both eyes 3. Eye pain, left -main complaint is difficulty opening left eye in the morning, numbness in left side of face. Pain 09/22 -(+) sensitivity to light -Trigger: RSV vaccine 04/2023 -MRI brain within normal limits -Anti-nuclear antibody positive, anti-SSA/SSB within normal limits Dry Eye Treatment: Artificial tears Effective?: No Lid hygiene Effective?: No Demodex treatment Comments: Expensive Plan: -FML twice a day both eyes x 2 weeks then sotp -erythromycin ointment at bedtime both eyes -follow-up 2 months / sooner as needed. To consider inflammation control if FML works (restasis/protopic?) vs Miebo for oil replenishing I have confirmed and edited as necessary the relevant ophthalmic history, ROS, and the neuro exam findings as obtained by others. I have seen and examined Giovanna Nation. I have discussed the case and the management of this patient's care with the Resident/Fellow, if applicable. I also have reviewed and agree with the assessment and plan as stated above and agree with all of its relevant components. Starr Haines MD [facility] 04-23-2024 History of Presen t illness Narrative Assessment and Plan 1. Dry eye syndrome of bilateral lacrimal glands 2. Meibomian gland dysfunction (MGD) of upper and lower lids of both eyes 3. Eye pain, left -main complaint is difficulty opening left eye in the morning, numbness in left side of face. Pain 09/22 -(+) sensitivity to light -Trigger: RSV vaccine 04/2023 -MRI brain within normal limits -Anti-nuclear antibody positive, anti-SSA/SSB within normal limits Dry Eye Treatment: Artificial tears Effective?: No Lid hygiene Effective?: No Demodex treatment Comments: Expensive Plan: -FML twice a day both eyes x 2 weeks then sotp -erythromycin ointment at bedtime both eyes -follow-up 2 months / sooner as needed. To consider inflammation control if FML works (restasis/protopic?) vs Miebo for oil replenishing I have confirmed and edited as necessary the relevant ophthalmic history, ROS, and the neuro exam findings as obtained by others. I have seen and examined Giovanna Nation. I have discussed the case and the management of this patient's care with the Resident/Fellow, if applicable. I also have reviewed and agree with the assessment and plan as stated above and agree with all of its relevant components. Starr Haines MD documented in this encounter [facility] 04-23-2024 Note Patient Outreach (IN [facility]) GIOVANNA NATION ([id number]) 1960 F Date Time Provider Department 04/23/24 MICHAEL FLYNN During your visit today, we recorded the following information about you: Allergies As of Date: 04/23/2024 Noted Allergy Reaction FLOVENT (FLUTICASONE PROPIONATE) 10/17/2019 14 - Other: See Comments Comments: took breath away PENICILLINS 09/21/2005 2 - Rash PREDNISONE 09/21/2005 1 - Mental Status Change Comments: Depression Date Reviewed: 04/23/2024 Reviewed by: Oralia Brewer COA - Fully Assessed Visit Diagnosis:Encounter for screening mammogram for breast cancer [Z12.31] Order(s):LACHELLE SCREENING W ABRAHAM [[id number]] Order #: [id number] FUTURE Prescriptions as of 04/28/2024 - fluorometholone (FML LIQUID FILM) 0.1 % ophthalmic suspension Use 1 Drop in both eyes two times a day for 14 days. - gabapentin (NEURONTIN) 100 mg capsule Take 1 capsule by mouth three times a day for 360 days. - lotilaner (XDEMVY) 0.25 % ophthalmic solution Use 1 Drop in both eyes two times a day. - erythromycin (ROMYCIN) 5 mg/gram (0.5 %) ophthalmic ointment Use 1 application in both eyes daily at bedtime. - multivit-min/ferrous fumarate (MULTI VITAMIN ORAL) Take by mouth. - triamcinolone acetonide (KENALOG) 0.1 % cream Apply twice daily to pink papules on lower legs as needed - atomoxetine (STRATTERA) 25 mg capsule Take 25 mg by mouth every morning. - lidocaine (LIDODERM) 5 % - losartan-hydroCHLOROthiazide (HYZAAR) 50-12.5 mg per tablet Take 1 tablet by mouth once daily. - mecobalamin (B12 ACTIVE ORAL) Take by mouth. - Cholecalciferol, Vitamin D3, 50 mcg (2,000 unit) cap Take 1 capsule by mouth once daily. Problem List As Of Date 04/23/2024 Noted Resolved MYALGIA AND MYOSITIS NOS [[id number]] Tobacco use [Z72.0] 10/20/2013 01/07/2020 Depression with anxiety [F41.8] 11/19/2015 03/17/2021 Closed fracture of distal end of left radius [S*08/21/2016 07/02/2018 Shoulder stiffness [M25.619] 11/16/2016 Radiculopathy, cervical region [M54.12] 01/08/2017 Reflex sympathetic dystrophy of left upper extr*01/10/2017 Primary osteoarthritis of first carpometacarpal*02/07/2017 Lateral epicondylitis of left elbow [M77.12] 03/07/2017 Cubital tunnel syndrome on left [G56.22] 03/07/2017 Pain in left wrist [M25.532] 05/16/2017 Chronic left shoulder pain [M25.512, G89.29] 05/16/2017 Pain in left elbow [M25.522] 05/30/2017 Numbness and tingling in left upper extremity [*05/30/2017 Tobacco abuse, 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 Author Type: Physical Therapist Type: Progress Notes Filed: 04/11/2024 14:56 Note Text: Episode Visit Count: 29 Therapist That Will Accept/Oversee The Plan Of Care: Pierre Montgomery Start of Care Date: 11/20/23 Onset Date: 07/16/23 Plan of Care Certification Date: 02/19/24 Next Certification Due Date: 03/25/24 Patient Identified by Name and Date of : Yes RE[facility]ABIL[facility]ATION AND [facility]ORTS THERAPY PHYSICAL THERAPY DISCONTINUANCE OF CARE PLAN OF CARE UPDATE: Assessment: Giovanna Nation is discontinued from Physical Therapy services due to Patient/Clinician mutual decision to discontinue current plan of care.. Patient was seen for 29 visits from Start of Care Date: 11/20/23 to 04/11/2024 and treatment included: Therapeutic exercise, Manual therapy, and Patient/Family/Caregiver Education. Decrease neck pain to 2/10 or less in 10 weeks - Some progression Return B upper traps to WNL flexibility to decrease neck pain - Progressing Decrease [place] frequency within 10 weeks - MET Improve fllexibility of the sub-occipitals to WNL for decreased neck pain - Not met SUBJECTIVE: Feeling like the neck and head are still sore at times. Feels 70% improved overall. Patient Goals: to get this pain gone Functional Limitations: sleeping Prior Level of Function: Independent without limitations Pain: PROMIS Scales 03/11/2024 02/12/2024 12/03/2023 Higher is Better Phys Func - Score 43 (mild dysfunction) 48 (within normal limits) 41 (mild dysfunction) Phys Func - Percentile 24 42 18 Self-Eff Symptom - Score 52 (Average) 60 (High) 47 (Average) Self-Eff Symptom - Percentile 58 84 38 T-scores: mean of general population = 50. 5 points is clinically meaningfully difference Percentiles provide an indication of how the patient's score ranks in relation to the general population. Higher percentile rankings indicate better function/quality of life. 50th percentile is the average of the general population and indicates half of respondents had a worse score. OBJECTIVE MEASURES WITH LEVEL OF FUNCTION: Shoulder AROM WNL bilaterally Cervical AROM WNL Shoulder strength 5/5 Posture: Good TREATMENT: Therapeutic Exercise: 1: Chin tuck supine x 20 sec 2: Chin tuck with shoulder flexion BTB x 10 3: Chin tuck with shoulder abd BTB x 10 4: Chin tuck with curl BTB x 10 Skilled Intervention: Patient was educated in proper exercise technique and purpose for exercises. Correct performance of therapeutic exercises was facilitated with verbal and visual cuing. Billing Therapeutic Exercise Treatment Minutes: 34 Skilled Treatment Time Minutes (timed and untimed codes): 34 Total Session Time (minutes): 34 Session Start Time : 1421 Session Stop Time : 1455 Pierre Montgomery PT [facility] 04-11-2024 History of Presen t illness Narrative Images from the original note were not included. Episode Visit Count: 29 Therapist That Will Accept/Oversee The Plan Of Care: Pierre Montgomery Start of Care Date: 11/20/23 Onset Date: 07/16/23 Plan of Care Certification Date: 02/19/24 Next Certification Due Date: 03/25/24 Patient Identified by Name and Date of : Yes REHABILITATION AND SPORTS THERAPY PHYSICAL THERAPY DISCONTINUANCE OF CARE PLAN OF CARE UPDATE: Assessment: Giovanna Nation is discontinued from Physical Therapy services due to Patient/Clinician mutual decision to discontinue current plan of care.. Patient was seen for 29 visits from Start of Care Date: 11/20/23 to 04/11/2024 and treatment included: Therapeutic exercise, Manual therapy, and Patient/Family/Caregiver Education. Decrease neck pain to 2/10 or less in 10 weeks - Some progression Return B upper traps to WNL flexibility to decrease neck pain - Progressing Decrease [place] frequency within 10 weeks - MET Improve fllexibility of the sub-occipitals to WNL for decreased neck pain - Not met SUBJECTIVE: Feeling like the neck and head are still sore at times. Feels 70% improved overall. Patient Goals: to get this pain gone Functional Limitations: sleeping Prior Level of Function: Independent without limitations Pain: PROMIS Scales 03/11/2024 02/12/2024 12/03/2023 Higher is Better Phys Func - Score 43 (mild dysfunction) 48 (within normal limits) 41 (mild dysfunction) Phys Func - Percentile 24 42 18 Self-Eff Symptom - Score 52 (Average) 60 (High) 47 (Average) Self-Eff Symptom - Percentile 58 84 38 T-scores: mean of general population = 50. 5 points is clinically meaningfully difference Percentiles provide an indication of how the patient's score ranks in relation to the general population. Higher percentile rankings indicate better function/quality of life. 50th percentile is the average of the general population and indicates half of respondents had a worse score. OBJECTIVE MEASURES WITH LEVEL OF FUNCTION: Shoulder AROM WNL bilaterally Cervical AROM WNL Shoulder strength 5/5 Posture: Good TREATMENT: Therapeutic Exercise: 1: Chin tuck supine x 20 sec 2: Chin tuck with shoulder flexion BTB x 10 3: Chin tuck with shoulder abd BTB x 10 4: Chin tuck with curl BTB x 10 Skilled Intervention: Patient was educated in proper exercise technique and purpose for exercises. Correct performance of therapeutic exercises was facilitated with verbal and visual cuing. Billing Therapeutic Exercise Treatment Minutes: 34 Skilled Treatment Time Minutes (timed and untimed codes): 34 Total Session Time (minutes): 34 Session Start Time : 1421 Session Stop Time : 145 Pierre Montgomery PT documented in this encounter [facility] 03-25-2024 Note HNO ID: [id number] Author: PIERRE MONTGOMERY PT Service: ? Author Type: Physical Therapist Type: Progress Notes Filed: 03/25/2024 15:45 Note Text: Episode Visit Count: 28 Therapist That Will Accept/Oversee The Plan Of Care: Pierre Montgomery Start of Care Date: 11/20/23 Onset Date: 07/16/23 Plan of Care Certification Date: 02/19/24 Next Certification Due Date: 03/25/24 Patient Identified by Name and Date of : Yes REHABILITATION AND SPORTS THERAPY PHYSICAL THERAPY TREATMENT NOTE ASSESSMENT: Giovanna Nation tolerated the session with good tolerance. She demonstrated improvements in decreased tightness in the sub occipitals observed through palpation. The patient will continue to benefit from ongoing skilled physical therapy to progress toward set goals. PLAN FOR NEXT VISIT: PN SUBJECTIVE: Pt notes that DDN to the L suboccipitals feels like her [place] pain is being addressed Pain: Pain Pain Level: (Not rated) Pain Location: Neck OBJECTIVE MEASURES WITH LEVEL OF FUNCTION: Palpating L sub-occipitals causes familiar pain behind the L ear No adverse events to DDN TREATMENT: Therapeutic Exercise: 2: Cervical retraction x 5 3: Prone scapular retraction x 10 Skilled Intervention: Patient was educated in proper exercise technique and purpose for exercises. Provided written instruction for home exercise program to facilitate proper performance and compliance. Correct performance of therapeutic exercises was facilitated with verbal cuing. Manual Therapy: 1: STM along suboccipitals 2: DDN Skilled Intervention: Manual skills to improve joint mobility, ROM, and decrease pain. Utilized anatomy knowledge of the therapist, and assessment of patient's response to intervention. Billing Therapeutic Exercise Treatment Minutes: 10 Manual TherapyTreatment Minutes: 30 Skilled Treatment Time Minutes (timed and untimed codes): 40 Total Session Time (minutes): 40 Session Start Time : 1501 Session Stop Time : 1541 Pierre Montgomery PT [facility] 03-25-2024 History of Presen t illness Narrative Episode Visit Count: 28 Therapist That Will Accept/Oversee The Plan Of Care: Pierre Montgomery Start of Care Date: 11/20/23 Onset Date: 07/16/23 Plan of Care Certification Date: 02/19/24 Next Certification Due Date: 03/25/24 Patient Identified by Name and Date of : Yes REHABILITATION AND SPORTS THERAPY PHYSICAL THERAPY TREATMENT NOTE ASSESSMENT: Giovanna Nation tolerated the session with good tolerance. She demonstrated improvements in decreased tightness in the sub occipitals observed through palpation. The patient will continue to benefit from ongoing skilled physical therapy to progress toward set goals. PLAN FOR NEXT VISIT: PN SUBJECTIVE: Pt notes that DDN to the L suboccipitals feels like her [place] pain is being addressed Pain: Pain Pain Level: (Not rated) Pain Location: Neck OBJECTIVE MEASURES WITH LEVEL OF FUNCTION: Palpating L sub-occipitals causes familiar pain behind the L ear No adverse events to DDN TREATMENT: Therapeutic Exercise: 2: Cervical retraction x 5 3: Prone scapular retraction x 10 Skilled Intervention: Patient was educated in proper exercise technique and purpose for exercises. Provided written instruction for home exercise program to facilitate proper performance and compliance. Correct performance of therapeutic exercises was facilitated with verbal cuing. Manual Therapy: 1: STM along suboccipitals 2: DDN Skilled Intervention: Manual skills to improve joint mobility, ROM, and decrease pain. Utilized anatomy knowledge of the therapist, and assessment of patient's response to intervention. Billing Therapeutic Exercise Treatment Minutes: 10 Manual TherapyTreatment Minutes: 30 Skilled Treatment Time Minutes (timed and untimed codes): 40 Total Session Time (minutes): 40 Session Start Time : 1501 Session Stop Time : 1541 Pierre Montgomery PT documented in this encounter [facility] 03-18-2024 Note HNO ID: [id number] Author: PIERRE MONTGOMERY PT Service: ? Author Type: Physical Therapist Type: Progress Notes Filed: 03/18/2024 15:52 Note Text: Episode Visit Count: 27 Therapist That Will Accept/Oversee The Plan Of Care: Pierre Montgomery Start of Care Date: 11/20/23 Onset Date: 07/16/23 Plan of Care Certification Date: 02/19/24 Next Certification Due Date: 03/25/24 Patient Identified by Name and Date of : Yes REHABILITATION AND SPORTS THERAPY PHYSICAL THERAPY TREATMENT NOTE ASSESSMENT: Giovanna Nation tolerated the session with no issues. She demonstrated multiple twitches during DDN. The patient will continue to benefit from ongoing skilled physical therapy to progress toward set goals. PLAN FOR NEXT VISIT: DDN PRN. DNF SUBJECTIVE: [place] are getting better. Pain: Pain Pain Level: (Not rated) Pain Location: Neck OBJECTIVE MEASURES WITH LEVEL OF FUNCTION: Very tender to the L splenius cervicis TREATMENT: Therapeutic Exercise: 1: Supine DNF 2 x 10 holding 3 sec each 2: Resisted SB iso GTB x 2 3: Prone scapular retraction x 10 4: Resisted Cervical rotation GTB x 10 each Skilled Intervention: Patient was educated in proper exercise technique and purpose for exercises. Manual Therapy: 1: STM L upper trap and splenius cervicis 2: DDN (See note for details) Dry needling to following Trigger points: splenius cervicis and upper trap Needle length: 50mm 2.0 in . [place] used 3, needles removed 3. Dry needling technique used: Coning, Pistoning, and Fanning. Patient education on purpose, precautions, safety, risks, and other treatment options regarding dry needling. Verbal consent received. Skilled Intervention: Manual skills to improve joint mobility, ROM, and decrease pain. Utilized anatomy knowledge of the therapist, and assessment of patient's response to intervention. Billing Therapeutic Exercise Treatment Minutes: 25 Manual TherapyTreatment Minutes: 25 Skilled Treatment Time Minutes (timed and untimed codes): 50 Total Session Time (minutes): 50 Session Start Time : 1459 Session Stop Time : 1549 Pierre Montgomery PT [facility] 03-18-2024 History of Presen t illness Narrative Episode Visit Count: 27 Therapist That Will Accept/Oversee The Plan Of Care: Pierre Montgomery Start of Care Date: 11/20/23 Onset Date: 07/16/23 Plan of Care Certification Date: 02/19/24 Next Certification Due Date: 03/25/24 Patient Identified by Name and Date of : Yes REHABILITATION AND SPORTS THERAPY PHYSICAL THERAPY TREATMENT NOTE ASSESSMENT: Giovanna Nava Rios tolerated the session with no issues. She demonstrated multiple twitches during DDN. The patient will continue to benefit from ongoing skilled physical therapy to progress toward set goals. PLAN FOR NEXT VISIT: DDN PRN. DNF SUBJECTIVE: [place] are getting better. Pain: Pain Pain Level: (Not rated) Pain Location: Neck OBJECTIVE MEASURES WITH LEVEL OF FUNCTION: Very tender to the L splenius cervicis TREATMENT: Therapeutic Exercise: 1: Supine DNF 2 x 10 holding 3 sec each 2: Resisted SB iso GTB x 2 3: Prone scapular retraction x 10 4: Resisted Cervical rotation GTB x 10 each Skilled Intervention: Patient was educated in proper exercise technique and purpose for exercises. Manual Therapy: 1: STM L upper trap and splenius cervicis 2: DDN (See note for details) Dry needling to following Trigger points: splenius cervicis and upper trap Needle length: 50mm 2.0 in . [place] used 3, needles removed 3. Dry needling technique used: Coning, Pistoning, and Fanning. Patient education on purpose, precautions, safety, risks, and other treatment options regarding dry needling. Verbal consent received. Skilled Intervention: Manual skills to improve joint mobility, ROM, and decrease pain. Utilized anatomy knowledge of the therapist, and assessment of patient's response to intervention. Billing Therapeutic Exercise Treatment Minutes: 25 Manual TherapyTreatment Minutes: 25 Skilled Treatment Time Minutes (timed and untimed codes): 50 Total Session Time (minutes): 50 Session Start Time : 1459 Session Stop Time : 154 Pierre Montgomery PT documented in this encounter [facility] 03-11-2024 Note HNO ID: [id number] Author: PIERRE MONTGOMERY PT Service: ? Author Type: Physical Therapist Type: Progress Notes Filed: 03/11/2024 17:30 Note Text: Episode Visit Count: 26 Therapist That Will Accept/Oversee The Plan Of Care: Pierre Montgomery Start of Care Date: 11/20/23 Onset Date: 07/16/23 Plan of Care Certification Date: 02/19/24 Next Certification Due Date: 03/25/24 Patient Identified by Name and Date of : Yes REHABILITATION AND SPORTS THERAPY PHYSICAL THERAPY TREATMENT NOTE ASSESSMENT: Giovanna Nation tolerated the session with expected muscle soreness. She demonstrated good tolerance to DDN of the neck. The patient will continue to benefit from ongoing skilled physical therapy to progress toward set goals. PLAN FOR NEXT VISIT: DDN as needed. Cervical DNF SUBJECTIVE: Still getting pain in the head at night. Wakes up after 90 min of sleeping Pain: Pain Pain Level: (Not rated) Pain Location: Neck OBJECTIVE MEASURES WITH LEVEL OF FUNCTION: DNF hold score 2 sec Tender along R upper trap and splenius cervicis TREATMENT: Therapeutic Exercise: 1: Supine DNF 2 x 10 Skilled Intervention: Patient was educated in proper exercise technique and purpose for exercises. Correct performance of therapeutic exercises was facilitated with verbal and visual cuing. Manual Therapy: Dry needling to following Trigger points: R upper trap and splenius cervicis Needle length: 30mm 1.2 in and 50mm 2.0 in . [place] used 2, needles removed 2. Dry needling technique used: Coning and Pistoning. Patient education on purpose, precautions, safety, risks, and other treatment options regarding dry needling. Verbal consent received. 1: DDN R upper trap and splenius cervicis 2: STM upper traps Skilled Intervention: Manual skills to improve joint mobility, ROM, and decrease pain. Utilized anatomy knowledge of the therapist, and assessment of patient's response to intervention. Self-Assisted Management: 1: Discussed sleeping with a towel roll under the neck without a pillow to see if this decreases pain at night when laying down Skilled Intervention: Skilled judgment in the selection of proper modification for activity of daily living/home management based on clinical presentation, deficits, and needs. Billing Therapeutic Exercise Treatment Minutes: 12 Manual TherapyTreatment Minutes: 25 Self-Care/Home Management Treatment Minutes: 5 Total Session Time (minutes): 42 Session Start Time : 1548 Session Stop Time : 1630 Pierre Montgomery PT [facility] 03-11-2024 History of Presen t illness Narrative Episode Visit Count: 26 Therapist That Will Accept/Oversee The Plan Of Care: Pierre Montgomery Start of Care Date: 11/20/23 Onset Date: 07/16/23 Plan of Care Certification Date: 02/19/24 Next Certification Due Date: 03/25/24 Patient Identified by Name and Date of : Yes REHABILITATION AND SPORTS THERAPY PHYSICAL THERAPY TREATMENT NOTE ASSESSMENT: Giovanna Nation tolerated the session with expected muscle soreness. She demonstrated good tolerance to DDN of the neck. The patient will continue to benefit from ongoing skilled physical therapy to progress toward set goals. PLAN FOR NEXT VISIT: DDN as needed. Cervical DNF SUBJECTIVE: Still getting pain in the head at night. Wakes up after 90 min of sleeping Pain: Pain Pain Level: (Not rated) Pain Location: Neck OBJECTIVE MEASURES WITH LEVEL OF FUNCTION: DNF hold score 2 sec Tender along R upper trap and splenius cervicis TREATMENT: Therapeutic Exercise: 1: Supine DNF 2 x 10 Skilled Intervention: Patient was educated in proper exercise technique and purpose for exercises. Correct performance of therapeutic exercises was facilitated with verbal and visual cuing. Manual Therapy: Dry needling to following Trigger points: R upper trap and splenius cervicis Needle length: 30mm 1.2 in and 50mm 2.0 in . [place] used 2, needles removed 2. Dry needling technique used: Coning and Pistoning. Patient education on purpose, precautions, safety, risks, and other treatment options regarding dry needling. Verbal consent received. 1: DDN R upper trap and splenius cervicis 2: STM upper traps Skilled Intervention: Manual skills to improve joint mobility, ROM, and decrease pain. Utilized anatomy knowledge of the therapist, and assessment of patient's response to intervention. Self-Assisted Management: 1: Discussed sleeping with a towel roll under the neck without a pillow to see if this decreases pain at night when laying down Skilled Intervention: Skilled judgment in the selection of proper modification for activity of daily living/home management based on clinical presentation, deficits, and needs. Billing Therapeutic Exercise Treatment Minutes: 12 Manual TherapyTreatment Minutes: 25 Self-Care/Home Management Treatment Minutes: 5 Total Session Time (minutes): 42 Session Start Time : 1548 Session Stop Time : 1630 Pierre Montgomery PT documented in this encounter [facility] 03-05-2024 Note HNO ID: [id number] Author: CARLOTTA ARCHER MD Service: ? Author Type: Physician Type: Progress Notes Filed: 03/05/2024 20:59 Note Text: Neurological [place] March 05, 2024 Consultation My final recommendations will be communicated back to the requesting physician by way of shared medical record or letter via [place] mail. Referring physician:Emily Scanlon [place] [id number] Patient presents with: Consult: headache Accompanied by Self. Referred by Emily Tejada colton [facility] [id number]. HISTORY AND PHYSICAL Ms. Nation is a 63 year old female, being seen today for headache for 8 months . She was admitted to the hospital and had extensive work up MRI MRV with no acute lesion. Headache is left temporal parietal ,started severe throbbing ,now is mild dull aching Constant,daily but doesn't interfere with any of her daily activities. 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 3.5 g 2 baclofen 5 mg tablet Take 1 tablet by mouth two times a day as needed (headache/neck pain). 60 tablet 1 multivit-min/ferrous fumarate (MULTI VITAMIN ORAL) Take by mouth. atomoxetine (STRATTERA) 25 mg capsule Take 25 mg by mouth every morning. losartan-hydroCHLOROthiazide (HYZAAR) 50-12.5 mg per tablet Take 1 tablet by mouth once daily. 90 tablet 3 gabapentin (NEURONTIN) 100 mg capsule Take 1 capsule by mouth three times a day for 30 days. 90 capsule 0 lotilaner (XDEMVY) 0.25 % ophthalmic solution Use 1 Drop in both eyes two times a day. (Patient not taking: Reported on 03/05/2024) 10 mL 1 triamcinolone acetonide (KENALOG) 0.1 % cream Apply twice daily to pink papules on lower legs as needed (Patient not taking: Reported on 01/22/2024) 28.4 g 2 lidocaine (LIDODERM) 5 % (Patient not taking: Reported on 01/22/2024) mecobalamin (B12 ACTIVE ORAL) Take by mouth. (Patient not taking: Reported on 01/22/2024) Cholecalciferol, Vitamin D3, 50 mcg (2,000 unit) cap Take 1 capsule by mouth once daily. (Patient not taking: Reported on 01/22/2024) No current facility-administered medications for this visit. Review of Systems: As shown in history All other systems reviewed and are negative. Review of Systems Constitutional: Negative Eyes Positive for Change in vison not corrected by glasses Hent Positive for Difficulty Swallowing Cardiovascular: Negative Respiratory: Negative GI Positive for Constipation and Heartburn : Negative Endocrine: Negative Musculoskeletal Positive for Muscle Pain Integumentary: Negative Heme/Lymph: Negative Allergy/Immunologic: Negative Neurologic Positive for Headache, Numbness/Tingling and Trouble Swallowing Psychiatric: Negative Patient's Review of Systems has been reviewed with the patient and updated as appropriate. Objective Physical Exam BP 107/74 (BP Site: Left Arm, BP Position: Sitting, BP Cuff Size: Regular Adult) Pulse 82 Resp 16 Wt 45.1 kg (99 lb 6.8 oz) LMP 02/11/2006 SpO2 99% BMI 17.61 kg/m? Neurological Exam MENTAL STATUS: Alert, oriented to person, place and time and Follows commands CRANIAL NERVES: Visual godinez intact to confrontation, Face symmetric, Hearing intact to finger rub bilaterally, No dysarthria, Palate elevates symmetrically, Tongue protrudes midline, and Shoulder shrug intact and symmetric MOTOR: No drift and Normal tone MOTOR STRENGTH: Upper and lower extremity 5/5 bilaterally REFLEXES: UE and LE reflexes are equal and reactive SENSATION: Intact light touch COORDINATION: Finger-to- nose-finger intact bilaterally GAIT: Normal-based TANDEM good Data Diagnostic tests reviewed for today's visit: LABS: Lab Results Component Value Date PLT 284 01/14/2024 HB 13.9 01/14/2024 HCT 41.1 01/14/2024 ALB 4.1 01/14/2024 CA 9.3 01/14/2024 TBILI 0.4 01/14/2024 ALKPHOS 70 01/14/2024 AST 17 01/14/2024 GLUC 97 01/14/2024 BUN 16 01/14/2024 NA 136 01/14/2024 K 3.3 (L) 01/14/2024 CHLOR 100 01/14/2024 CO2 29 01/14/2024 ANION 7 (L) 01/14/2024 ALT 10 01/14/2024 Lab Results Component Value Date W (more content not included)... [facility] 03-05-2024 History of Presen t illness Narrative Images from the original note were not included. [facility] [place] March 05, 2024 Consultation My final recommendations will be communicated back to the requesting physician by way of shared medical record or letter via [place] mail. Referring physician:Emily Scanlon [facility] [id number] Patient presents with: Consult: headache Accompanied by Self. Referred by Emily Scanlon [facility] [id number]. HISTORY AND PHYSICAL Ms. Nation is a 63 year old female, being seen today for headache for 8 months . She was admitted to the hospital and had extensive work up MRI MRV with no acute lesion. Headache is left temporal parietal ,started severe throbbing ,now is mild dull aching Constant,daily but doesn't interfere with any of her daily activities. 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 3.5 g 2 baclofen 5 mg tablet Take 1 tablet by mouth two times a day as needed (headache/neck pain). 60 tablet 1 multivit-min/ferrous fumarate (MULTI VITAMIN ORAL) Take by mouth. atomoxetine (STRATTERA) 25 mg capsule Take 25 mg by mouth every morning. losartan-hydroCHLOROthiazide (HYZAAR) 50-12.5 mg per tablet Take 1 tablet by mouth once daily. 90 tablet 3 gabapentin (NEURONTIN) 100 mg capsule Take 1 capsule by mouth three times a day for 30 days. 90 capsule 0 lotilaner (XDEMVY) 0.25 % ophthalmic solution Use 1 Drop in both eyes two times a day. (Patient not taking: Reported on 03/05/2024) 10 mL 1 triamcinolone acetonide (KENALOG) 0.1 % cream Apply twice daily to pink papules on lower legs as needed (Patient not taking: Reported on 01/22/2024) 28.4 g 2 lidocaine (LIDODERM) 5 % (Patient not taking: Reported on 01/22/2024) mecobalamin (B12 ACTIVE ORAL) Take by mouth. (Patient not taking: Reported on 01/22/2024) Cholecalciferol, Vitamin D3, 50 mcg (2,000 unit) cap Take 1 capsule by mouth once daily. (Patient not taking: Reported on 01/22/2024) No current facility-administered medications for this visit. Review of Systems: As shown in history All other systems reviewed and are negative. Review of Systems Constitutional: Negative Eyes Positive for Change in vison not corrected by glasses Hent Positive for Difficulty Swallowing Cardiovascular: Negative Respiratory: Negative GI Positive for Constipation and Heartburn : Negative Endocrine: Negative Musculoskeletal Positive for Muscle Pain Integumentary: Negative Heme/Lymph: Negative Allergy/Immunologic: Negative Neurologic Positive for Headache, Numbness/Tingling and Trouble Swallowing Psychiatric: Negative Patient's Review of Systems has been reviewed with the patient and updated as appropriate. Objective Physical Exam BP 107/74 (BP Site: Left Arm, BP Position: Sitting, BP Cuff Size: Regular Adult) Pulse 82 Resp 16 Wt 45.1 kg (99 lb 6.8 oz) LMP 02/11/2006 SpO2 99% BMI 17.61 kg/m Neurological Exam MENTAL STATUS: Alert, oriented to person, place and time and Follows commands CRANIAL NERVES: Visual godinez intact to confrontation, Face symmetric, Hearing intact to finger rub bilaterally, No dysarthria, Palate elevates symmetrically, Tongue protrudes midline, and Shoulder shrug intact and symmetric MOTOR: No drift and Normal tone MOTOR STRENGTH: Upper and lower extremity 5/5 bilaterally REFLEXES: UE and LE reflexes are equal and reactive SENSATION: Intact light touch COORDINATION: Finger-to- nose-finger intact bilaterally GAIT: Normal-based TANDEM good Data Diagnostic tests reviewed for today's visit: LABS: Lab Results Component Value Date PLT 284 01/14/2024 HB 13.9 01/14/2024 HCT 41.1 01/14/2024 ALB 4.1 01/14/2024 CA 9.3 01/14/2024 TBILI 0.4 01/14/2024 ALKPHOS 70 01/14/2024 AST 17 01/14/2024 GLUC 97 01/14/2024 BUN 16 01/14/2024 NA 136 01/14/2024 K 3.3 (L) 01/14/2024 CHLOR 100 01/14/2024 CO2 29 01/14/2024 ANION 7 (L) 01/14/2024 ALT 10 01/14/2024 Lab Results Component Value Date WSR 26 (H) 06/08/2023 CRP <0.3 01/14/2024 No results found for: USCRP Lab Results Component Value Date CHOL 165 06/13/2022 CHOL 175 05/08/2021 CHOL 185 06/12/2018 Lab Results Component Value Date LDL 100 (H) 06/13/2022 LDL 103 (H) 05/08/2021 LDL 120 (H) 06/12/2018 Lab Results Component Value Date HDL 51 06/13/2022 HDL 54 05/08/2021 HDL 52 06/12/2018 Lab Results Component Value Date TG 69 06/13/2022 TG 90 05/08/2021 TG 67 06/12/2018 Lab Results Component Value Date HBA1C 5.1 05/08/2021 Lab Results Component Value Date TSH 1.280 05/07/2023 TSH 0.535 05/09/2021 TSH 0.536 01/24/2021 Lab Results Component Value Date B12 >2,000 (H) 12/28/2023 B12 >2,000 (H) 05/09/2021 B12 932 01/26/2021 IMAGING: Last MRI Cervical Spine - Impression Only MRI CERVICAL SPINE WO IVCON Exam End: 01/14/2024 3:13 PM (Final result) Impression: IMPRESSION: Normal MRI brain. No acute intracranial abnormality. Normal intracranial MRV. No evidence of intracranial venous thrombosis or focal significant stenosis. Developmental cervical canal stenosis with mild superimposed degenerative changes causing slight impingement of the cord and multilevel bony foraminal narrowing as detailed above.... MRI Report MRV BRAIN WO/W IVCON Exam End: 01/14/2024 3:13 PM (Final result) Narrative: * * *Final Report* * * DATE OF EXAM: Jan 14 2024 3:12PM [facility] [id number] - MRV BRAIN WO/W IVCON / PROCEDURE REASON: Dural venous sinus thrombosis suspected * * * * Physician Interpretation * * * * EXAMINATION: MRI CERVICAL SPINE WO IVCON, MRI BRAIN WO/W IVCON, MRV BRAIN WO/W IVCON CLINICAL HISTORY: Worsening headache for 6-8 months with left facial numbness. TECHNIQUE: Routine intracranial mass protocol with and without gadolinium. 2-D dvug-[id number] intracranial MRV, and coronal gradient echo volume acquisition of the intracranial venous circulation with and without gadolinium with 2D multiplanar and 3D maximum intensity projections calculated on the imaging workstation under physician supervision. Routine cervical spine MR protocol without gadolinium. MQ: MRBWOW_2 MQ: MRCWOW_3 Contrast: 8 mL Dotarem IV COMPARISON: CT brain 01/14/2024 and MRI cervical spine 01/12/2017 RESULT: BRAIN: Acute Change: No apparent acute intracranial process. Hemorrhage: No evidence of prior parenchymal hemorrhage on SWI. Mass Lesion/ Mass Effect: No evidence of an intracranial mass or extra-axial fluid collection. No abnormal parenchymal or leptomeningeal enhancement is noted otherwise following contrast administration. No significant mass effect. Chronic Change: The white matter is within normal limits of signal intensity for age. Parenchyma: No significant volume loss for age. The brain parenchyma is otherwise within normal limits of signal intensity and morphology. Ventricles: Normal caliber and morphology. Skull Base: Hypothalamic and pituitary region are grossly normal. Craniocervical junction is normal. No significant marrow replacement process. Vasculature: Major intracranial arterial structures show typical flow void, suggesting patency by spin echo criteria. Other: The paranasal sinuses are clear. Trace left mastoid effusion. MR VENOGRAM: Superior sagittal sinus, straight sinus, vein of saul, bilateral internal cerebral veins, bilateral basal veins of arvin, bilateral transverse sinuses, bilateral sigmoid sinuses, and proximal internal jugular veins are patent and within normal limits of caliber and configuration. No evidence of intraluminal filling defect or focal significant stenosis on the 2-D qffu-wt-ijfvui and gadolinium-enhanced acquisitions. Bilateral cavernous sinuses are symmetric. CERVICAL: Counting reference: Craniocervical junction. Alignment: Alignment is anatomic. Relative narrowing of the canal and foramina given developmentally short pedicles. Craniocervical junction: Craniocervical junction is normal. Cord: The visualized cord is within normal limits of signal intensity but is compressed as outlined below. Bone marrow signal/fracture: No apparent pathologic marrow infiltration. No findings to suggest sequelae of acute or chronic fracture. Cervical soft tissues: The paraspinal soft tissues are within normal limits. C2-C3: Canal and foramina are patent. C3-C4: Mild disc height loss. Small disc osteophyte complex with slight impingement of the adjacent spinal cord in view of the developmentally small canal. Uncovertebral resulting moderate left foraminal stenosis. C4-C5: Mild disc height loss. Mild disc osteophyte complex causing slight impingement of the cord in view of the developmentally small canal. Uncinate and facet hypertrophy with moderate-severe left and moderate right foraminal stenosis. C5-C6: Mild disc height loss. Disc osteophyte complex abutting the ventral surface of the cord without significant cord compression. Facet and uncinate process hypertrophy causes moderate left and mild right foraminal stenosis. C6-C7: Mild disc height loss. Disc osteophyte complex which is eccentric to the left of midline and also abuts the ventral surface of the cord without significant cord compression.. Uncovertebral joint hypertrophy with mild-moderate left and mild right foraminal stenosis C7-T1: Canal and foramina are patent. Impression: IMPRESSION: Normal MRI brain. No acute intracranial abnormality. Normal intracranial MRV. No evidence of intracranial venous thrombosis or focal significant stenosis. Developmental cervical canal stenosis with mild superimposed degenerative changes causing slight impingement of the cord and multilevel bony foraminal narrowing as detailed above. Cervical Anatomic Variant: None. Assume 7 cervical vertebrae with counting from the craniocervical junction. Unix Consultant: ROSA Transcribe Date/Time: Jan 14 2024 3:29P Dictated by : RHONA BEGUM, This examination was interpreted and the report reviewed and electronically signed by: RAJEEV JACK MD on Jan 14 2024 4:28PM EST No results found. Social Determinants of Health Tobacco Use: Medium Risk (03/05/2024) Patient History Smoking Tobacco Use: Former Smokeless Tobacco Use: Never Passive Exposure: Not on file Alcohol Use: Unknown (04/29/2021) AUDIT-C Frequency of Alcohol Consumption: Patient declined Average Number of Drinks: Patient declined Frequency of Binge Drinking: Patient declined Financial Resource Strain: Unknown (04/29/2021) Overall Financial Resource Strain (CARDIA) Difficulty of Paying Living Expenses: Patient declined Food Insecurity: No Food Insecurity (01/15/2024) Hunger Vital Sign Worried About Running Out of Food in the Last Year: Never true Ran Out of Food in the Last Year: Never true Transportation Needs: No Transportation Needs (01/15/2024) PRAPARE - Transportation Lack of Transportation (Medical): No Lack of Transportation (Non-Medical): No Physical Activity: Unknown (04/29/2021) Exercise Vital Sign Days of Exercise per Week: Patient declined Minutes of Exercise per Session: Patient declined Stress: Unknown (04/29/2021) Citizen Of [place] of Occupational Health - Occupational Stress Questionnaire Feeling of Stress : Patient declined Social Connections: Not on file Intimate Partner Violence: Not At Risk (01/15/2024) Safe at Home? Fear of Current or Ex-Partner: Not on file Emotionally Abused: Not on file Physically Abused: Not on file Sexually Abused: Not on file Safe at Home?: Yes Depression: Not at risk (12/17/2023) PHQ-2 PHQ-2 Score: 0 Housing Stability: Unknown (01/15/2024) Housing Stability Vital Sign Unable to Pay for Housing in the Last Year: No Number of Places Lived in the Last Year: Not on file Unstable Housing in the Last Year: No Utilities: Not At Risk (01/15/2024) [facility] Utilities Threatened with loss of utilities: No Area Deprivation Index: Medium Risk (07/29/2022) Area Deprivation Index National Score (1-100), lower number is lower risk: 64 State Score (1-10), lower number is lower risk: Not on file Data from: https://www.neighborhoodatlas.[email or web address]/. Last address used for calculation: [address] [place] [address] Diagnosis: (R51.9) Chronic daily headache (primary encounter diagnosis) (M54.2) Neck pain IMP/PLAN: Giovanna Nation is 63 year old female, here today for follow up after hospitalization for her headache Which improved and now is dull aching mild headache Office Visit on 03/05/24 METHYLMALONIC ACID CONSULT TO PHYSICAL THERAPY TSH BMP Carlotta Archer MD [facility] Neurological [place] Department of Neurology Total time in minutes spent with patient, reviewing records, labs, imaging, formulating plan, and documentin minutes with more than 50% of the time spent in patient education/counselling/coordinati ng care with the patient and /or family. documented in this encounter [facility] 03-03-2024 Telephone encounter Note Submitted request for prior authorization for Xdemvy via Cover my meds. Denial received because there is no documentation indicating patient has tried and failed existing FDA approved and/or clinical therapies. Please advise Heidi Hardin March 03, 2024 1:33 PM [facility] 03-03-2024 Miscellaneous Notes Submitted request for prior authorization for Xdemvy via Cover my meds. Denial received because there is no documentation indicating patient has tried and failed existing FDA approved and/or clinical therapies. Please advise Heidi Hardin March 03, 2024 1:33 PM documented in this encounter [facility] 02-27-2024 Instructions Starr Haines MD - 02/27/2024 8:40 AM EDT -xdemvy twice a day both eyes -erythromycin ointment at bedtime both eyes documented in this encounter [facility] 02-27-2024 History of Presen t illness Narrative Assessment and Plan 1. Dry eye syndrome of bilateral lacrimal glands 2. Meibomian gland dysfunction (MGD) of upper and lower lids of both eyes 3. Eye pain, left -main complaint is difficulty opening left eye in the morning, numbness in left side of face. Pain 09/22 -Trigger: RSV vaccine 04/2023 -MRI brain within normal limits -Anti-nuclear antibody positive, anti-SSA/SSB within normal limits Dry Eye Treatment: Artificial tears Effective?: No Lid hygiene Effective?: No Plan: -xdemvy twice a day both eyes -erythromycin ointment at bedtime both eyes -follow-up 2 months / sooner as needed. To consider inflammation control (restasis/protopic?) I have confirmed and edited as necessary the relevant ophthalmic history, ROS, and the neuro exam findings as obtained by others. I have seen and examined Giovanna Nation. I have discussed the case and the management of this patient's care with the Resident/Fellow, if applicable. I also have reviewed and agree with the assessment and plan as stated above and agree with all of its relevant components. Starr Haines MD February 27, 2024 8:21 AM documented in this encounter [facility] 02-27-2024 Note HNO ID: [id number] Author: STARR HAINES MD Service: ? Author Type: Physician Type: Progress Notes Filed: 02/27/2024 08:42 Note Text: Assessment and Plan 1. Dry eye syndrome of bilateral lacrimal glands 2. Meibomian gland dysfunction (MGD) of upper and lower lids of both eyes 3. Eye pain, left -main complaint is difficulty opening left eye in the morning, numbness in left side of face. Pain 09/22 -Trigger: RSV vaccine 04/2023 -MRI brain within normal limits -Anti-nuclear antibody positive, anti-SSA/SSB within normal limits Dry Eye Treatment: Artificial tears Effective?: No Lid hygiene Effective?: No Plan: -xdemvy twice a day both eyes -erythromycin ointment at bedtime both eyes -follow-up 2 months / sooner as needed. To consider inflammation control (restasis/protopic?) I have confirmed and edited as necessary the relevant ophthalmic history, ROS, and the neuro exam findings as obtained by others. I have seen and examined Giovanna Nation. I have discussed the case and the management of this patient's care with the Resident/Fellow, if applicable. I also have reviewed and agree with the assessment and plan as stated above and agree with all of its relevant components. Starr Haines MD February 27, 2024 8:21 AM [facility] 02-19-2024 Note HNO ID: [id number] Author: PIERRE MONTGOMERY PT Service: ? Author Type: Physical Therapist Type: Progress Notes Filed: 02/19/2024 12:02 Note Text: Episode Visit Count: 25 Therapist That Will Accept/Oversee The Plan Of Care: Pierre Montgomery Start of Care Date: 11/20/23 Onset Date: 07/16/23 Plan of Care Certification Date: 02/19/24 Next Certification Due Date: 03/25/24 Patient Identified by Name and Date of : Yes REHABILITATION AND SPORTS THERAPY PHYSICAL THERAPY PROGRESS REPORT PLAN OF CARE UPDATE: Assessment: Giovanna Nation demonstrates difficulty with sleep and turning the head and improvements in overall pain intensity. She has progressed toward goals. Patient continues to present with impairments in ADL's, independence in exercise, overall function, and range of motion that interfere with lifting, physical activities, sleeping, reaching behind back, reaching overhead, use hand with arm at shoulder level, cooking, dressing, cleaning, grooming, carrying . Current prognosis is Good due to: current objective clinical presentation . She will benefit from continued skilled therapy services to meet the updated goals for this plan of care as noted below. Decrease neck pain to 2/10 or less in 10 weeks - Some progression Return B upper traps to WNL flexibility to decrease neck pain - Progressing Decrease I[place] frequency within 10 weeks - MET Improve fllexibility of the sub-occipitals to WNL for decreased neck pain - Not met Patient Goals: to get this pain gone Planned Interventions, Frequency, and Duration: 1x/week, 4 weeks Total Number of Visits Planned: 4 Patient to be seen for Therapeutic exercise (88673), Neuromuscular re-education (23603), Manual therapy (98552), Therapeutic activities (77386), Self-retirement management ([id number]), Patient/Family/Caregiver Education SUBJECTIVE: Was told by pain management that her pain is myofascial and to continue with PT. Feels the neck is so tight it feels she cannot swallow. Feels she has made some progress. Feels about 65% improved overall. Patient Goals: to get this pain gone Functional Limitations: lifting, physical activities, sleeping, reaching behind back, reaching overhead, use hand with arm at shoulder level, cooking, dressing, cleaning, grooming, carrying Prior Level of Function: Independent without limitations Intake Information: Prescription present Spine History Symptoms Location at Onset: Neck Pain: Pain Pain Level: 7 Pain Location: Neck PROMIS Scales 02/12/2024 12/03/2023 Higher is Better Phys Func - Score 48 (within normal limits) 41 (mild dysfunction) Phys Func - Percentile 42 18 Self-Eff Symptom - Score 60 (High) 47 (Average) Self-Eff Symptom - Percentile 84 38 T-scores: mean of general population = 50. 5 points is clinically meaningfully difference Percentiles provide an indication of how the patient's score ranks in relation to the general population. Higher percentile rankings indicate better function/quality of life. 50th percentile is the average of the general population and indicates half of respondents had a worse score. OBJECTIVE MEASURES WITH LEVEL OF FUNCTION: Posture / Alignment Posture: Good Cervical Spine ROM Cervical Flexion AROM: Normal (stretching on L side of neck) Cervical Extension AROM: Normal Cervical Side-Bend Right AROM: Normal Cervical Side-Bend Left AROM: Normal Cervical Rotation Right AROM: Normal, Increased pain Cervical Rotation Left AROM: Normal, Increased pain UE AROM R Shoulder Flex: 180 Degrees L Shoulder Flex: 180 Degrees UE Flexibility R Upper Trapezius Flexibilty Comments: WNL L Upper Trapezius Flexibility Comments: Min tightness Sub-occipitals are tight L>R TREATMENT: Therapeutic Exercise: 1: SO stretch supine x 30 sec head tilted to the R 2: Posterior scalene stretch 2 x 60 sec Skilled Intervention: Patient was educated in proper exercise technique and purpose for exercises. Provided written instruction for home exercise program to facilitate proper performance and compliance. Correct performance of therapeutic exercises was facilitated with verbal and visual cuing. Manual Therapy: 1: All objective measures taken 2: Manual posterior scalene stretch with firm gliding of thumb over scalene muscle belly 3: SO release x 3 min Skilled Intervention: Manual skills to improve joint mobility, ROM, and decrease pain. Utilized anatomy knowledge of the therapist, and assessment of patient's response to intervention. Billing Therapeutic Exercise Treatment Minutes: 5 Manual TherapyTreatment Minutes: 42 Skilled Treatment Time Minutes (timed and untimed codes): 47 Total Session Time (minutes): 47 Session Start Time : 925 Session Stop Time : 1012 Pierre Montgomery PT [facility] 02-19-2024 History of Presen t illness Narrative Episode Visit Count: 25 Therapist That Will Accept/Oversee The Plan Of Care: Pierre Montgomery Start of Care Date: 11/20/23 Onset Date: 07/16/23 Plan of Care Certification Date: 02/19/24 Next Certification Due Date: 03/25/24 Patient Identified by Name and Date of : Yes REHABILITATION AND SPORTS THERAPY PHYSICAL THERAPY PROGRESS REPORT PLAN OF CARE UPDATE: Assessment: Giovanna Nation demonstrates difficulty with sleep and turning the head and improvements in overall pain intensity. She has progressed toward goals. Patient continues to present with impairments in ADL's, independence in exercise, overall function, and range of motion that interfere with lifting, physical activities, sleeping, reaching behind back, reaching overhead, use hand with arm at shoulder level, cooking, dressing, cleaning, grooming, carrying . Current prognosis is Good due to: current objective clinical presentation . She will benefit from continued skilled therapy services to meet the updated goals for this plan of care as noted below. Decrease neck pain to 2/10 or less in 10 weeks - Some progression Return B upper traps to WNL flexibility to decrease neck pain - Progressing Decrease [place] frequency within 10 weeks - MET Improve fllexibility of the sub-occipitals to WNL for decreased neck pain - Not met Patient Goals: to get this pain gone Planned Interventions, Frequency, and Duration: 1x/week, 4 weeks Total Number of Visits Planned: 4 Patient to be seen for Therapeutic exercise (11981), Neuromuscular re-education (85590), Manual therapy (04894), Therapeutic activities (03865), Self-retirement management ([id number]), Patient/Family/Caregiver Education SUBJECTIVE: Was told by pain management that her pain is myofascial and to continue with PT. Feels the neck is so tight it feels she cannot swallow. Feels she has made some progress. Feels about 65% improved overall. Patient Goals: to get this pain gone Functional Limitations: lifting, physical activities, sleeping, reaching behind back, reaching overhead, use hand with arm at shoulder level, cooking, dressing, cleaning, grooming, carrying Prior Level of Function: Independent without limitations Intake Information: Prescription present Spine History Symptoms Location at Onset: Neck Pain: Pain Pain Level: 7 Pain Location: Neck PROMIS Scales 02/12/2024 12/03/2023 Higher is Better Phys Func - Score 48 (within normal limits) 41 (mild dysfunction) Phys Func - Percentile 42 18 Self-Eff Symptom - Score 60 (High) 47 (Average) Self-Eff Symptom - Percentile 84 38 T-scores: mean of general population = 50. 5 points is clinically meaningfully difference Percentiles provide an indication of how the patient's score ranks in relation to the general population. Higher percentile rankings indicate better function/quality of life. 50th percentile is the average of the general population and indicates half of respondents had a worse score. OBJECTIVE MEASURES WITH LEVEL OF FUNCTION: Posture / Alignment Posture: Good Cervical Spine ROM Cervical Flexion AROM: Normal (stretching on L side of neck) Cervical Extension AROM: Normal Cervical Side-Bend Right AROM: Normal Cervical Side-Bend Left AROM: Normal Cervical Rotation Right AROM: Normal, Increased pain Cervical Rotation Left AROM: Normal, Increased pain UE AROM R Shoulder Flex: 180 Degrees L Shoulder Flex: 180 Degrees UE Flexibility R Upper Trapezius Flexibilty Comments: WNL L Upper Trapezius Flexibility Comments: Min tightness Sub-occipitals are tight L>R TREATMENT: Therapeutic Exercise: 1: SO stretch supine x 30 sec head tilted to the R 2: Posterior scalene stretch 2 x 60 sec Skilled Intervention: Patient was educated in proper exercise technique and purpose for exercises. Provided written instruction for home exercise program to facilitate proper performance and compliance. Correct performance of therapeutic exercises was facilitated with verbal and visual cuing. Manual Therapy: 1: All objective measures taken 2: Manual posterior scalene stretch with firm gliding of thumb over scalene muscle belly 3: SO release x 3 min Skilled Intervention: Manual skills to improve joint mobility, ROM, and decrease pain. Utilized anatomy knowledge of the therapist, and assessment of patient's response to intervention. Billing Therapeutic Exercise Treatment Minutes: 5 Manual TherapyTreatment Minutes: 42 Skilled Treatment Time Minutes (timed and untimed codes): 47 Total Session Time (minutes): 47 Session Start Time : 925 Session Stop Time : 1012 Pierre Montgomery PT documented in this encounter [facility] 02-18-2024 Note HNO ID: [id number] Author: RAJEEV HODGE MD Service: ? Author Type: Physician Type: Progress Notes Filed: 02/18/2024 12:36 Note Text: [facility] Date: February 18, 2024 - 11:13 AM Giovanna Nation is seen in consultation requested by Thi Moss for an opinion regarding chronic neck pain. My final recommendations will be communicated back to the requesting physician by way of shared medical record or via US mail. Chief Complaint: neck pain SUBJECTIVE: Giovanna Nation, is a 63 year old female who presents with neck pain. The pain started 9+ months ago, with no known injury or trauma. The pain onset was gradual. The patient states that the current pain is persistent. Her pain is located in the bilateral posterior cervical region and does not radiate.. // The pain is described as aching. The pain intensity is rated 5. The pain is exacerbated by no known factors and relieved by no known factors. Symptoms interfere with sleeping. Litigation: No. Worker's Compensation: No. Prior pain treatment has included: Medication(s): Gabapentin, baclofen ALLERGIES Allergen Reactions Flovent [Fluticason* Other: See Comments took breath away Penicillins Rash Prednisone Mental Status Change Depression Current Medications: Pain medications reviewed and reconciled in the medication list: Yes. Current Outpatient Medications Medication Sig baclofen 5 mg tablet Take 1 tablet by mouth two times a day as needed (headache/neck pain). gabapentin (NEURONTIN) 100 mg capsule Take 1 capsule by mouth three times a day for 30 days. multivit-min/ferrous fumarate (MULTI VITAMIN ORAL) Take by mouth. triamcinolone acetonide (KENALOG) 0.1 % cream Apply twice daily to pink papules on lower legs as needed (Patient not taking: Reported on 01/22/2024) atomoxetine (STRATTERA) 25 mg capsule Take 25 mg by mouth every morning. lidocaine (LIDODERM) 5 % (Patient not taking: Reported on 01/22/2024) losartan-hydroCHLOROthiazide (HYZAAR) 50-12.5 mg per tablet Take 1 tablet by mouth once daily. mecobalamin (B12 ACTIVE ORAL) Take by mouth. (Patient not taking: Reported on 01/22/2024) Cholecalciferol, Vitamin D3, 50 mcg (2,000 unit) cap Take 1 capsule by mouth once daily. (Patient not taking: Reported on 01/22/2024) No current facility-administered medications for this visit. PAST MEDICAL HISTORY No date: Attention deficit disorder without mention of hyperactivity Comment: Adult 08/21/2016: Closed fracture of distal end of left radius No date: Excessive or frequent menstruation 12/2020: History of colonoscopy No date: Myalgia and myositis, unspecified 12/30/2023: Primary hypertension PAST SURGICAL HISTORY No date: APPENDECTOMY No date: APPENDECTOMY HX No date: LIG/TRNSXJ FLP TUBE ABDL/VAG APPR UNI/BI Comment: Tubal ligation FAMILY HISTORY Problem Relation Age of Onset Cancer Mother Cervical cancer- treated Psychiatry Sister suicide Ischemic Heart Disease Brother 60 [place], heavy smoker, Etoh Psychiatry Son Opoid dependency Cancer Other Niece (sister's daughter) Social History: Alcohol Use: No Tobacco Use: 0.5 packs/day Types: Cigarettes Drug Use: Never Employer And Job Title: No employer specified (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) Years Of Education Completed: Not specified Marital Status: with 1 child REVIEW OF SYSTEMS: Constitutional: (-) Fever (-) Night Sweats (-) Weight Gain (-) Weight Loss (-) Fatigue Cardiovascular: (-) Chest Pain (-) Palpitations (-) Lightheadedness (-) Swelling of Ankles (-) Hx Heart Surgery Respiratory: (-) Shortness of Breath (-) Cough (-) Wheezing (-) Snoring Gastrointestinal: (-) Incontinence (-) Abdominal Pain (-) Diarrhea (-) Constipation (-) Nausea/Vomiting (-) Heart Burn Endocrine: (-) Thyroid Disorder (-) Diabetes Hematologic: (-) Prolonged Bleeding (-) Easy Bruising Genitourinary: (-) Incontinence (-) Frequency (-) Urinary Urgency Skin: (-) Rashes (-) Itching (-) Other Lesions Neurologic: (+) Headache (-) Double Vision (-) Confusion (-) Paralysis (-) Vertigo (-) Syncope Psychiatric: (-) Depression (-) Anxiety (-) Delusions (-) Hallucinations (-) Suicidal Thoughts OARRS Report reviewed: Yes Narcotic Agreement reviewed and signed?: N/A Baseline Urine Toxicology obtained: N/A Urine Panel: No results found for: UQCANN, UQBNZL, IBA9OZY, UQAMPH, UQMAMP, UQBUPRE, UQNORBUP, UQMTHD, UQEDDP, UQTRAM, UQDTRM, UQFNTL, UQNFTL, UQCODE, UQMORP, UQDCDN, UQHCOD, UQOXYC, UQHMOR, UQOXYM, UQCREA, UQPH, UQSPGR, UQOXID, UQSPQ The pain panel was N/A OBJECTIVE: Performed in conjunction with observation. The patient was alert and oriented x3. The patient was in no acute distress. Lungs: Clear, negative for dyspnea or distress. CVR: Negative for SOB or peripheral edema. Neck: Supple. The range of motion was intact. Bi (more content not included)... [facility] 02-18-2024 History of Presen t illness Narrative [facility] Date: February 18, 2024 - 11:13 AM Giovanna Nation is seen in consultation requested by Thi Moss for an opinion regarding chronic neck pain. My final recommendations will be communicated back to the requesting physician by way of shared medical record or via US mail. Chief Complaint: neck pain SUBJECTIVE: Giovanna Nation, is a 63 year old female who presents with neck pain. The pain started 9+ months ago, with no known injury or trauma. The pain onset was gradual. The patient states that the current pain is persistent. Her pain is located in the bilateral posterior cervical region and does not radiate.. // The pain is described as aching. The pain intensity is rated 5. The pain is exacerbated by no known factors and relieved by no known factors. Symptoms interfere with sleeping. Litigation: No. Worker's Compensation: No. Prior pain treatment has included: Medication(s): Gabapentin, baclofen ALLERGIES Allergen Reactions Flovent [Fluticason* Other: See Comments took breath away Penicillins Rash Prednisone Mental Status Change Depression Current Medications: Pain medications reviewed and reconciled in the medication list: Yes. Current Outpatient Medications Medication Sig baclofen 5 mg tablet Take 1 tablet by mouth two times a day as needed (headache/neck pain). gabapentin (NEURONTIN) 100 mg capsule Take 1 capsule by mouth three times a day for 30 days. multivit-min/ferrous fumarate (MULTI VITAMIN ORAL) Take by mouth. triamcinolone acetonide (KENALOG) 0.1 % cream Apply twice daily to pink papules on lower legs as needed (Patient not taking: Reported on 01/22/2024) atomoxetine (STRATTERA) 25 mg capsule Take 25 mg by mouth every morning. lidocaine (LIDODERM) 5 % (Patient not taking: Reported on 01/22/2024) losartan-hydroCHLOROthiazide (HYZAAR) 50-12.5 mg per tablet Take 1 tablet by mouth once daily. mecobalamin (B12 ACTIVE ORAL) Take by mouth. (Patient not taking: Reported on 01/22/2024) Cholecalciferol, Vitamin D3, 50 mcg (2,000 unit) cap Take 1 capsule by mouth once daily. (Patient not taking: Reported on 01/22/2024) No current facility-administered medications for this visit. PAST MEDICAL HISTORY No date: Attention deficit disorder without mention of hyperactivity Comment: Adult 08/21/2016: Closed fracture of distal end of left radius No date: Excessive or frequent menstruation 12/2020: History of colonoscopy No date: Myalgia and myositis, unspecified 12/30/2023: Primary hypertension PAST SURGICAL HISTORY No date: APPENDECTOMY No date: APPENDECTOMY HX No date: LIG/TRNSXJ FLP TUBE ABDL/VAG APPR UNI/BI Comment: Tubal ligation FAMILY HISTORY Problem Relation Age of Onset Cancer Mother Cervical cancer- treated Psychiatry Sister suicide Ischemic Heart Disease Brother 60 [place], heavy smoker, Etoh Psychiatry Son Opoid dependency Cancer Other Niece (sister's daughter) Social History: Alcohol Use: No Tobacco Use: 0.5 packs/day Types: Cigarettes Drug Use: Never Employer And Job Title: No employer specified (Student) Years Of Education Completed: Not specified Marital Status: with 1 child REVIEW OF SYSTEMS: Constitutional: (-) Fever (-) Night Sweats (-) Weight Gain (-) Weight Loss (-) Fatigue Cardiovascular: (-) Chest Pain (-) Palpitations (-) Lightheadedness (-) Swelling of Ankles (-) Hx Heart Surgery Respiratory: (-) Shortness of Breath (-) Cough (-) Wheezing (-) Snoring Gastrointestinal: (-) Incontinence (-) Abdominal Pain (-) Diarrhea (-) Constipation (-) Nausea/Vomiting (-) Heart Burn Endocrine: (-) Thyroid Disorder (-) Diabetes Hematologic: (-) Prolonged Bleeding (-) Easy Bruising Genitourinary: (-) Incontinence (-) Frequency (-) Urinary Urgency Skin: (-) Rashes (-) Itching (-) Other Lesions Neurologic: (+) Headache (-) Double Vision (-) Confusion (-) Paralysis (-) Vertigo (-) Syncope Psychiatric: (-) Depression (-) Anxiety (-) Delusions (-) Hallucinations (-) Suicidal Thoughts OARRS Report reviewed: Yes Narcotic Agreement reviewed and signed?: N/A Baseline Urine Toxicology obtained: N/A Urine Panel: No results found for: UQCANN, UQBNZL, OQM9YZK, UQAMPH, UQMAMP, UQBUPRE, UQNORBUP, UQMTHD, UQEDDP, UQTRAM, UQDTRM, UQFNTL, UQNFTL, UQCODE, UQMORP, UQDCDN, UQHCOD, UQOXYC, UQHMOR, UQOXYM, UQCREA, UQPH, UQSPGR, UQOXID, UQSPQ The pain panel was N/A OBJECTIVE: Performed in conjunction with observation. The patient was alert and oriented x3. The patient was in no acute distress. Lungs: Clear, negative for dyspnea or distress. CVR: Negative for SOB or peripheral edema. Neck: Supple. The range of motion was intact. Bilateral paracervical tenderness Cervical facet loading: Negative Spurling's: Negative Back: Range of motion of the trunk was intact. Negative focal tenderness. Extremities: no reported edema or erythema. Motor: Negative focal deficits Sensory: Intact light touch throughout the upper extremities bilaterally. Gait: Within normal limits Medical record and diagnostic tests reviewed for today's visit: The [facility] EMR was reviewed during the visit IMAGING STUDIES: No new imaging studies were reviewed during this office visit. ASSESSMENT: (M79.18) Myofascial pain syndrome, cervical (primary encounter diagnosis) (M62.838) Spasm of cervical paraspinous muscle Discussion: A discussion was entertained regarding multicomponent pain source. Discussed conservative options and focus on improvement of function and the concerns of ongoing or developing chronic pain. Discussed the rationale behind interventional approach and how it can facilitate improvement of pain but also diagnostic information that procedures provide. ocean transportation intermediary use of any opioid pain medication is discouraged in chronic benign pain. PLAN: 1. MRI of the cervical spine was reviewed with the patient. Findings were discussed. Discussed multicomponent pain source with significant myofascial pain component. Recommend continue with physical therapy. 2. No interventional procedures indicated 3. She may continue with baclofen 5 mg 1 p.o. 3 times daily as needed. 4. Counseled patient regarding the importance of activity modification and exercise. 5. Follow up: As needed basis The above plan and management options were discussed with patient. The patient is in agreement with the above and verbalized understanding. I have discussed and confirmed the above treatment plan with the patient and I have reviewed the nurses notes and I am aware of the family/social history. I have confirmed ROS findings. Rajeev Hodge MD 1. This document has been created with the use of voice recognition technology. It may contain inaccuracies: (e.g. misspellings, inaccurate syntax or word sense) that have escaped review. 2. The nurse practitioner, nursing staff and medical assistants are a major part of YOUR TREATMENT TEAM and will be handling your phone calls and inquiries, if any. Unless explicitly told otherwise at the time of your office visit, your study results and ensuing treatment plans will be discussed during your follow-up appointment. If you do not have a follow-up appointment and wish to discuss any issues, please set up an appointment. 3. It is my practice to not fill disability or any other insurance-related forms/documentation. All of the office notes, study results, and other pertinent documentation generated as part of your evaluation will be available to you and to your Primary Care Physician (PCP). Use of this material to complete such forms will be at the discretion of your PCP/referring physician. February 18, 2024 cc: Thi Moss [facility] [place] [phone] Results of consultation to be transmitted via electronic medical record for those providers who practice within [facility] or with access to Hello[employer]ax via MD Connect, or via letter. documented in this encounter [facility] 02-12-2024 Note HNO ID: [id number] Author: AWILDA DARBY PT Service: ? Author Type: Physical Therapist Type: Progress Notes Filed: 02/12/2024 11:01 Note Text: 02/12/2024 [facility] REHABILITATION AND SPORTS THERAPY PHYSICAL THERAPY DISCONTINUANCE OF CARE Plan of Care Period: Start of Care Date: 11/20/23 Last Visit Date: 11/20/2023 Therapy Program: Patient did not return for follow up care as planned. Please refer to last visit note for interventions provided for this episode of care. Assessment: Unable to formally assess goal achievement. Reason for Discontinuation of Care: Patient has not returned to therapy or scheduled additional follow-up appointments. Awilda Darby, PT [facility] 02-12-2024 Note HNO ID: [id number] Author: PIERRE MONTGOMERY PT Service: ? Author Type: Physical Therapist Type: Progress Notes Filed: 02/12/2024 09:23 Note Text: Episode Visit Count: 6 Therapist That Will Accept/Oversee The Plan Of Care: Pierre Montgomery Start of Care Date: 11/20/23 Onset Date: 07/16/23 Plan of Care Certification Date: 12/31/23 Next Certification Due Date: 02/04/24 Patient Identified by Name and Date of : Yes REHABILITATION AND SPORTS THERAPY PHYSICAL THERAPY TREATMENT NOTE ASSESSMENT: Giovanna Nation tolerated the session with expected muscle soreness. She demonstrated good tolerance to DDN without bleeding. The patient will continue to benefit from ongoing skilled physical therapy to progress toward set goals. PLAN FOR NEXT VISIT: PN and DDN SUBJECTIVE: The [place] is definitely better. The medication is working. Wants to go through with the needling. Pain: Pain Additional Pain Information : Location 2 Pain Location 2: Neck Post Treatment Pain Post Treatment Pain Location: Neck - Left Post Treatment Pain Description: Sore OBJECTIVE MEASURES WITH LEVEL OF FUNCTION: Tender to palpation of the L upper trap and splenius cervicis TREATMENT: Manual Therapy: 1: DDN (see note for details) 2: STM over the L upper trap and splenius cervicis Skilled Intervention: Manual skills to improve joint mobility, ROM, and decrease pain. Utilized anatomy knowledge of the therapist, and assessment of patient's response to intervention. Dry needling to following Trigger points: L upper trapezius and splenius cervicis Needle length: 25mm 1.0 in and 50mm 2.0 in . [place] used 4, needles removed 4. Dry needling technique used: Pistoning, Fanning, and Deep needling. Patient education on purpose, precautions, safety, risks, and other treatment options regarding dry needling. Verbal consent received. Therapeutic Exercise: 1: Upper trap stretch 3 x 30 sec Skilled Intervention: Patient was educated in proper exercise technique and purpose for exercises. Billing Therapeutic Exercise Treatment Minutes: 2 Manual TherapyTreatment Minutes: 41 Skilled Treatment Time Minutes (timed and untimed codes): 43 Total Session Time (minutes): 43 Session Start Time : 828 Session Stop Time : 911 Pierre Montgomery PT [facility] 02-12-2024 History of Presen t illness Narrative Episode Visit Count: 6 Therapist That Will Accept/Oversee The Plan Of Care: Pierre Montgomery Start of Care Date: 11/20/23 Onset Date: 07/16/23 Plan of Care Certification Date: 12/31/23 Next Certification Due Date: 02/04/24 Patient Identified by Name and Date of : Yes REHABILITATION AND SPORTS THERAPY PHYSICAL THERAPY TREATMENT NOTE ASSESSMENT: Giovanna Nation tolerated the session with expected muscle soreness. She demonstrated good tolerance to DDN without bleeding. The patient will continue to benefit from ongoing skilled physical therapy to progress toward set goals. PLAN FOR NEXT VISIT: PN and DDN SUBJECTIVE: The [place] is definitely better. The medication is working. Wants to go through with the needling. Pain: Pain Additional Pain Information : Location 2 Pain Location 2: Neck Post Treatment Pain Post Treatment Pain Location: Neck - Left Post Treatment Pain Description: Sore OBJECTIVE MEASURES WITH LEVEL OF FUNCTION: Tender to palpation of the L upper trap and splenius cervicis TREATMENT: Manual Therapy: 1: DDN (see note for details) 2: STM over the L upper trap and splenius cervicis Skilled Intervention: Manual skills to improve joint mobility, ROM, and decrease pain. Utilized anatomy knowledge of the therapist, and assessment of patient's response to intervention. Dry needling to following Trigger points: L upper trapezius and splenius cervicis Needle length: 25mm 1.0 in and 50mm 2.0 in . [place] used 4, needles removed 4. Dry needling technique used: Pistoning, Fanning, and Deep needling. Patient education on purpose, precautions, safety, risks, and other treatment options regarding dry needling. Verbal consent received. Therapeutic Exercise: 1: Upper trap stretch 3 x 30 sec Skilled Intervention: Patient was educated in proper exercise technique and purpose for exercises. Billing Therapeutic Exercise Treatment Minutes: 2 Manual TherapyTreatment Minutes: 41 Skilled Treatment Time Minutes (timed and untimed codes): 43 Total Session Time (minutes): 43 Session Start Time : 828 Session Stop Time : 911 Pierre Montgomery PT documented in this encounter [facility] 02-07-2024 Telephone encounter Note Prescription Refill Information The patient has been identified by name and date of : Yes Caregiver verified no other encounters exist for this prescription request: Yes Caregiver confirmed with patient/requestor that no other refills are due, in the near future, with this provider at this time: Yes The last office visit in the department: 01-22-24 Does the patient have a future office visit with this provider/department: Yes Requested Prescriptions Pending Prescriptions Disp Refills gabapentin (NEURONTIN) 100 mg capsule 90 capsule 0 Sig: Take 1 capsule by mouth three times a day for 30 days. Michael Tadeo February 07, 2024 12:08 PM [facility] 02-07-2024 Miscellaneous Notes Prescription Refill Information The patient has been identified by name and date of : Yes Caregiver verified no other encounters exist for this prescription request: Yes Caregiver confirmed with patient/requestor that no other refills are due, in the near future, with this provider at this time: Yes The last office visit in the department: 01-22-24 Does the patient have a future office visit with this provider/department: Yes Requested Prescriptions Pending Prescriptions Disp Refills gabapentin (NEURONTIN) 100 mg capsule 90 capsule 0 Sig: Take 1 capsule by mouth three times a day for 30 days. Michael Tadeo February 07, 2024 12:08 PM documented in this encounter [facility] 01-29-2024 History of Presen t illness Narrative Episode Visit Count: 5 Therapist That Will Accept/Oversee The Plan Of Care: Pierre Montgomery Start of Care Date: 11/20/23 Onset Date: 07/16/23 Plan of Care Certification Date: 12/31/23 Next Certification Due Date: 02/04/24 Patient Identified by Name and Date of : Yes REHABILITATION AND SPORTS THERAPY PHYSICAL THERAPY TREATMENT NOTE ASSESSMENT: Giovanna Nation tolerated the session with expected muscle soreness. She demonstrated difficulty with continued pain. The patient will continue to benefit from ongoing skilled physical therapy to progress toward set goals. PLAN FOR NEXT VISIT: PN and DDN to L upper trap SUBJECTIVE: Went to the hospital because of pain. She was admitted. Had MRI of her neck and brain. Pain: Pain Additional Pain Information : Location 2 Pain Level 2: (Not rated) Pain Location 2: Neck OBJECTIVE MEASURES WITH LEVEL OF FUNCTION: Neck extension feels pain L upper neck R rotation causes pain and stretching on the L side of the neck L rotation of cervical spine is WNL without pain STM over the L upper trap refers pain to the head which is her familiar symptoms TREATMENT: Manual Therapy: 1: STM over the L upper trap Skilled Intervention: Manual skills to improve joint mobility, ROM, and decrease pain. Utilized anatomy knowledge of the therapist, and assessment of patient's response to intervention. Self-Assisted Management: 1: Discussed reading Why do I hurt book to better understand PNE concepts. Discussed self meditation for a period of time with clearing the mind and trying to avoid invasive thoughts. Discussed what central sensitivity is, and ways to reduce the sensitivity. Skilled Intervention: Skilled judgment in the selection of proper modification for activity of daily living/home management based on clinical presentation, deficits, and needs. Billing Manual TherapyTreatment Minutes: 14 Self-Care/Home Management Treatment Minutes: 33 Skilled Treatment Time Minutes (timed and untimed codes): 47 Total Session Time (minutes): 47 Session Start Time : 831 Session Stop Time : 918 Pierre Montgomery PT documented in this encounter [facility] 01-22-2024 History of Presen t illness Narrative .This note was created using Webflowriter. Subjective Giovanna Nation is a 63 year old female. Patient is being seen today for hospital follow up She was admitted to [facility] 01/14/2024 - 01/15/2024 for headache She reports progressive headache over the last 8 months, worse with lying flat. Headache left-sided associated with left-sided facial numbness. Neurology consulted and felt headache was likely cervicogenic. MRI of the brain unremarkable MRI cervical spine-degenerative changes with slight impingement of the cord Responded well to gabapentin. Discharged on gabapentin and baclofen as needed and advised to follow-up with neurology/spine center. Today, She reports taking gabapentin 3 times per day and in the last 2 nights took baclofen at night. She notes when she did not take the baclofen she woke up 2 nights with the left sided headache. She reports arm tingling has resolved but before she started the medication Review of Systems Constitutional: Negative for activity change, appetite change, chills, fever and unexpected weight change. Eyes: Negative for visual disturbance. Respiratory: Negative for cough, chest tightness and shortness of breath. Cardiovascular: Negative for chest pain, palpitations and leg swelling. Neurological: Positive for headaches. Negative for seizures, speech difficulty and weakness. Past Medical History: PAST MEDICAL HISTORY Diagnosis Date Attention deficit disorder without mention of hyperactivity Adult Closed fracture of distal end of left radius 08/21/2016 Excessive or frequent menstruation History of colonoscopy 12/2020 Myalgia and myositis, unspecified Primary hypertension 12/30/2023 Past Surgical History: PAST SURGICAL HISTORY Procedure Laterality Date APPENDECTOMY APPENDECTOMY HX LIG/TRNSXJ FLP TUBE ABDL/VAG APPR UNI/BI Tubal ligation Family History: FAMILY HISTORY Problem Relation Age of Onset Cancer Mother Cervical cancer- treated Psychiatry Sister suicide Ischemic Heart Disease Brother 60 [place], heavy smoker, Etoh Psychiatry Son Opoid dependency Cancer Other Niece (sister's daughter) Social History: Social History Tobacco Use Smoking status: Former Packs/day: .5 Types: Cigarettes Smokeless tobacco: Never Vaping Use Vaping Use: Former Substance Use Topics Alcohol use: No Drug use: Never Current Medications: multivit-min/ferrous fumarate (MULTI VITAMIN ORAL), Take by mouth., Disp: , Rfl: baclofen 5 mg tablet, Take 1 tablet by mouth three times a day as needed (headache/neck pain) for up to 14 days. (Patient taking differently: Take 5 mg by mouth once daily.), Disp: 42 tablet, Rfl: 0 gabapentin (NEURONTIN) 100 mg capsule, Take 1 capsule by mouth three times a day for 30 days., Disp: 90 capsule, Rfl: 0 atomoxetine (STRATTERA) 25 mg capsule, Take 25 mg by mouth every morning., Disp: , Rfl: losartan-hydroCHLOROthiazide (HYZAAR) 50-12.5 mg per tablet, Take 1 tablet by mouth once daily., Disp: 90 tablet, Rfl: 3 triamcinolone acetonide (KENALOG) 0.1 % cream, Apply twice daily to pink papules on lower legs as needed (Patient not taking: Reported on 01/22/2024), Disp: 28.4 g, Rfl: 2 lidocaine (LIDODERM) 5 %, , Disp: , Rfl: mecobalamin (B12 ACTIVE ORAL), Take by mouth. (Patient not taking: Reported on 01/22/2024), Disp: , Rfl: Cholecalciferol, Vitamin D3, 50 mcg (2,000 unit) cap, Take 1 capsule by mouth once daily. (Patient not taking: Reported on 01/22/2024), Disp: , Rfl: No facility-administered encounter medications on file as of 01/22/2024. Allergies: ALLERGIES Allergen Reactions Flovent [Fluticason* Other: See Comments took breath away Penicillins Rash Prednisone Mental Status Change Depression Objective BP 112/77 Pulse 86 Temp 36.7 C (98.1 F) Resp 16 Ht 160 cm (5' 3) Wt 45.9 kg (101 lb 3.1 oz) LMP 02/11/2006 SpO2 99% BMI 17.93 kg/m Physical Exam Constitutional: Appearance: Normal appearance. She is normal weight. HENT: Head: Normocephalic and atraumatic. Musculoskeletal: Cervical back: Normal range of motion. Tenderness (cervical spine/ bilateral paraspinal tenderness/ muscle spasm) present. Neurological: General: No focal deficit present. Mental Status: She is alert and oriented to person, place, and time. Mental status is at baseline. Cranial Nerves: No cranial nerve deficit. Motor: No weakness. Gait: Gait normal. Deep Tendon Reflexes: Reflexes normal. Comments: 11/17 motor bilateral UE ASSESSMENT/PLAN: 1. Cervicogenic headache - ICD9: 784.0, ICD10: G44.86 (primary diagnosis) 2. Left facial numbness - ICD9: 782.0, ICD10: R20.0 - MRI brain revealed no acute abnormalities - MRI cervical spine 01/14/2024: Developmental cervical canal stenosis with mild superimposed degenerative changes causing slight impingement of the cord and multilevel bony foraminal narrowing -Much improved with regimen of gabapentin and baclofen -Patient to follow-up with spine center as well as neurology Schedule CPE Michael Flynn MD documented in this encounter [facility] 01-01-2024 Telephone encounter Note Notified patient-she agrees to plan. Patient verbalizes understanding and has no other questions or concerns at this time. Lety Eugene RN [facility] 01-01-2024 Miscellaneous Notes Notified patient-she agrees to plan. Patient verbalizes understanding and has no other questions or concerns at this time. Lety Eugene RN Called patient regarding message below, no answer. Left message to call office back. Lety Eugene RN BW reveals heavy metal screening normal B12 is actually elevated - you can cut your B12 supplement in 1/2 and recheck with next BW documented in this encounter [facility] 01-01-2024 Telephone encounter Note Called patient regarding message below, no answer. Left message to call office back. Lety Eugene RN [facility] 01-01-2024 Telephone encounter Note BW reveals heavy metal screening normal B12 is actually elevated - you can cut your B12 supplement in 1/2 and recheck with next BW [facility] 12-31-2023 History of Presen t illness Narrative Program_ID:[id number] Access Code: [email or web address] URL: [email or web address] Date: 12-31-2023 Prepared By: Awilda Darby Program Notes Exercises - Supine Shoulder Flexion AAROM - 1 x daily - 7 x weekly - 2 sets - 10 reps - Supine Shoulder External Rotation with Dowel - 1 x daily - 7 x weekly - 2 sets - 10 reps - Standing Shoulder Extension with Dowel - 1 x daily - 7 x weekly - 2 sets - 10 reps - Standing Bilateral Shoulder Internal Rotation AAROM with Dowel - 1 x daily - 7 x weekly - 2 sets - 10 reps - Standing Shoulder Abduction ROM with Dowel - 1 x daily - 7 x weekly - 2 sets - 10 reps - Seated Shoulder Flexion Towel Slide at Table Top - 1 x daily - 7 x weekly - 2 sets - 10 reps - Seated Gentle Upper Trapezius Stretch - 1 x daily - 7 x weekly - 1 sets - 3 reps - Gentle Levator Scapulae Stretch - 1 x daily - 7 x weekly - 1 sets - 3 reps - Seated Passive Cervical Retraction - 1 x daily - 7 x weekly - 3 sets - 1 reps - Seated Upper Trapezius Stretch - 1 x daily - 7 x weekly - 3 sets - 1 reps Images from the original note were not included. Episode Visit Count: 4 Therapist That Will Accept/Oversee The Plan Of Care: Pierre Montgomery Start of Care Date: 11/20/23 Onset Date: 07/16/23 Plan of Care Certification Date: 12/31/23 Next Certification Due Date: 02/04/24 Patient Identified by Name and Date of : Yes REHABILITATION AND SPORTS THERAPY PHYSICAL THERAPY PROGRESS REPORT PLAN OF CARE UPDATE: Assessment: Giovanna Nation demonstrates difficulty with decrease upper trap flexibility pain in the head and neck and shoulder and lifting and improvements in shoulder ROM and level of independence with the HEP. She has progressed toward goals. Patient continues to present with impairments in independence in exercise, overall function, and strength that interfere with lifting, physical activities, sleeping, reaching behind back, reaching overhead, use hand with arm at shoulder level, cooking, dressing, cleaning, grooming, carrying . Current prognosis is Good due to: current objective clinical presentation, good overall health status . She will benefit from continued skilled therapy services to meet the updated goals for this plan of care as noted below. Goals updated 12/31/23 Goals for Episode of Care: created on 11/20/23 through 01/19/24 Ware in home exercise program. - MET Patient will increase active ROM of R shoulder flexion and abduction to 120-140 degrees to allow pt to to improve performance of ADLs. - MET Patient will demonstrate increase in R shoulder strength to >=4/5 during manual muscle testing in order to improve function for prior functional tasks. - Progressing, will continue Perform functional tasks and ADL's without pain or limitation to improve her quality of life. - PRogressing Patient Goals: to get this pain gone Patient Goals: to get this pain gone Planned Interventions, Frequency, and Duration: 1x every other week, 4 weeks Total Number of Visits Planned: 2 Patient to be seen for Therapeutic exercise ([id number]), Neuromuscular re-education (89129), Manual therapy (04685), Therapeutic activities (52355), Self-retirement management (32978), Patient/Family/Caregiver Education PLAN FOR NEXT VISIT: (STM cervical muscles. Loading supraspinatus.) SUBJECTIVE: Has not done the shoulder exercise as much because she needs to focus on her neck and head symptoms. Has an MRI for her brain January 31 Patient Goals: to get this pain gone Functional Limitations: lifting, physical activities, sleeping, reaching behind back, reaching overhead, use hand with arm at shoulder level, cooking, dressing, cleaning, grooming, carrying Prior Level of Function: Independent without limitations Intake Information: Prescription present Pain: Pain Pain Level: (Pt states It all just blends together.) Pain Location: Shoulder - Right Additional Pain Information : Location 2 Pain Level 2: 7 Pain Location 2: Neck PROMIS Scales 12/03/2023 Higher is Better Phys Func - Score 41 (mild dysfunction) Phys Func - Percentile 18 Self-Eff Symptom - Score 47 (Average) Self-Eff Symptom - Percentile 38 T-scores: mean of general population = 50. 5 points is clinically meaningfully difference Percentiles provide an indication of how the patient's score ranks in relation to the general population. Higher percentile rankings indicate better function/quality of life. 50th percentile is the average of the general population and indicates half of respondents had a worse score. OBJECTIVE MEASURES WITH LEVEL OF FUNCTION: Posture / Alignment Posture: Good Cervical Spine ROM Cervical Flexion AROM: Normal Cervical Extension AROM: Normal Cervical Side-Bend Right AROM: Normal Cervical Side-Bend Left AROM: Normal Cervical Rotation Right AROM: Normal Cervical Rotation Left AROM: Normal UE AROM R Shoulder Flex: 170 Degrees R Shoulder ABduction: 170 Degrees R Shoulder External Rotation: 75 Degrees UE Flexibility Flexibility: Upper Trapezius R Upper Trapezius Flexibilty Comments: Tight L Upper Trapezius Flexibility Comments: Tight UE and Cervical Strength R Shoulder Flexion: 3+/5 R Shoulder Abduction (C5): 3+/5 TREATMENT: Therapeutic Exercise: 1: Upper trap stretch x 30 2: Sub-occipital stretch 2 x 30 sec 3: All objective measures taken this session Skilled Intervention: Patient was educated in proper exercise technique and purpose for exercises. Provided written instruction for home exercise program to facilitate proper performance and compliance. Correct performance of therapeutic exercises was facilitated with verbal and visual cuing. Manual Therapy: 1: STM push to tolerance over SO and upper traps and cervical paraspinals 2: SO release x 4 min Skilled Intervention: Manual skills to improve joint mobility, ROM, and decrease pain. Utilized anatomy knowledge of the therapist, and assessment of patient's response to intervention. Billing Therapeutic Exercise Treatment Minutes: 26 Manual TherapyTreatment Minutes: 15 Skilled Treatment Time Minutes (timed and untimed codes): 41 Total Session Time (minutes): 41 Session Start Time : 826 Session Stop Time : 907 Pierre Montgomery PT documented in this encounter [facility] 12-28-2023 History of Presen t illness Narrative ESTABLISHED PATIENT Giovanna Nation is a 63 year old female presenting for No chief complaint on file.. HISTORY OF PRESENT ILLNESS Here to establish. Former PCP Dr Hortencia Love [facility] She saw her PCP Dr Love 12/17/23 reporting multiple issues - facial tingling and neuralgic facial pain, headaches, worsening left eye vision changes, right shoulder pain MRI brain ordered and advised to keep appointment with ophthalmology Today she reports starting last March with facial pressure. She thought it was sinus related. She also had headaches of entire head at that time. [place] centralized to left top of head - constant but changed from [place] pain to pressure. Every morning her left eye does not open - no drainage. She has at times manually open it. Now she just squeeze then opens. Fine all day long then. No visual loss She also reports She had RSV vaccine end of April. She believes after that the eye issue and then noted left facial numbness - she believes did not involve her forehead. She feels this has lessened significantly. She has pain behind both ears - constant All symptoms worsened when she lies down at night She saw ENT Dr Henderson earlier today - agrees with MRI Retired - has not worked since ~2019 - Varied jobs / longest - worked at [employer] Former smoker quit 2019 PMH HTN ADHD MDD Vit B12 deficiency Vit D deficiency HISTORIES FAMILY HISTORY Problem Relation Age of Onset Cancer Mother Cervical cancer- treated Psychiatry Sister suicide Ischemic Heart Disease Brother 60 [place], heavy smoker, Etoh Psychiatry Son Opoid dependency Cancer Other Niece (sister's daughter) PAST MEDICAL HISTORY Diagnosis Date Attention deficit disorder without mention of hyperactivity Adult Closed fracture of distal end of left radius 08/21/2016 Excessive or frequent menstruation History of colonoscopy 12/2020 Myalgia and myositis, unspecified PAST SURGICAL HISTORY Procedure Laterality Date APPENDECTOMY APPENDECTOMY HX LIG/TRNSXJ FLP TUBE ABDL/VAG APPR UNI/BI Tubal ligation Social History Tobacco Use Smoking status: Former Packs/day: .5 Types: Cigarettes Smokeless tobacco: Never Vaping Use Vaping Use: Former Substance Use Topics Alcohol use: No Drug use: Never Allergies: ALLERGIES Allergen Reactions Flovent [Fluticason* Other: See Comments took breath away Penicillins Rash Prednisone Mental Status Change Depression Medications: triamcinolone acetonide (KENALOG) 0.1 % cream Apply twice daily to pink papules on lower legs as needed atomoxetine (STRATTERA) 25 mg capsule Take 25 mg by mouth every morning. lidocaine (LIDODERM) 5 % losartan-hydroCHLOROthiazide (HYZAAR) 50-12.5 mg per tablet Take 1 tablet by mouth once daily. mecobalamin (B12 ACTIVE ORAL) Take by mouth. Cholecalciferol, Vitamin D3, 50 mcg (2,000 unit) cap Take 1 capsule by mouth once daily. REVIEW OF SYSTEMS GENERAL: No weight loss, malaise or fevers. RESPIRATORY: Negative for cough, hemoptysis, wheezing or shortness of breath. CARDIOVASCULAR: Negative for chest pain, leg swelling or palpitations. All other systems reviewed and negative other than HPI. PHYSICAL EXAM BP 107/75 Pulse 92 Temp 36.7 C (98 F) Resp 16 Ht 160 cm (5' 3) Wt 45.6 kg (100 lb 8.5 oz) LMP 02/11/2006 SpO2 98% BMI 17.81 kg/m General Appearance: Well appearing, alert, in no acute distress, well-hydrated, well nourished.. Skin: Skin color, texture, turgor normal, no suspicious rashes or lesions. Head: Normocephalic, no masses, lesions, tenderness or abnormalities, Negative findings: No sinus tenderness. Eyes: Anicteric sclera. Ears: External ears normal, canals clear, Negative findings: Left tympanic membrane normal. Right tympanic membrane normal. Oropharynx: Lips, mucosa, and tongue normal, teeth and gums normal, oropharynx normal. Neck: Supple, no adenopathy; thyroid symmetric, normal size, no bruits. Lungs: Lungs clear to auscultation. No wheezing, rhonchi, rales.. Heart: RRR without murmur, gallop, or rubs. No ectopy. Abdomen: Normal abdominal exam, Abdomen soft, non-tender. Bowel sounds normal. No masses, organomegaly. Extremities: No deformities, edema, skin discoloration, clubbing or cyanosis. Good capillary refill. . Peripheral Pulses: Normal. Neurologic: Gait normal. Reflexes normal and symmetric. Sensation grossly intact., Negative findings: speech normal, mental status intact, No facial weakness ASSESSMENT: ASSESSMENT/PLAN: 1. Left facial numbness - ICD9: 782.0, ICD10: R20.0 (primary diagnosis) 2. 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 Vitamin B12 deficiency - ICD9: 266.2, ICD10: E53.8 - VITAMIN B12 4. Severe episode of recurrent major depressive disorder, without psychotic features (HCC) - ICD9: 296.33, ICD10: F33.2 5. Attention deficit hyperactivity disorder (ADHD), unspecified ADHD type - ICD9: 314.01, ICD10: F90.9 - On Strattera - Follows with psychiatry 6. Primary hypertension - ICD9: 401.9, ICD10: I10 - Controlled - Continue current medications - Recommend home blood pressure monitoring, to bring results to next visit - Encouraged sodium restriction, DASH or Mediterranean diet - Recommend regular aerobic exercise Michael Flynn MD documented in this encounter [facility] 12-28-2023 History of Presen t illness Narrative HPI Giovanna Nation is a 63 year old female who presents with sinus issues. Patient is seen in consultation from Nhung Saavedra CNP. Patient complains of numbness in the left face patient also states she is having pain behind the ears bilaterally and a blocked feeling patient notes when she wakes up her left eyes closed. Patient complains of soreness in the throat and a raw feeling. ROS General Weight loss: No Fatigue: No Night sweats:No Cardiac Chest pain:No Fast heart rate:No Swelling in the feet:No Respiratory Short of breath:No Cough:No Wheezing:No Gastrointestinal Nausea:No Vomiting:No Indigestion:No Past medical history, family history, and social history reviewed. PE LMP 02/11/2006 General: Patient is awake, alert, NAD. Voice is normal. Skin: normal Eyes: Extraocular motion and Gaze is normal. Ears: Right external auditory canal is normal. TMJ: normal. Right tympanic membranes normal. Left external auditory canal is normal. Left tympanic membrane normal. Nose: Septum is normal. Turbinates are normal. Nasopharynx:normal Oral Cavity/Oropharynx: Lips normal Dentition normal Tongue normal. Tonsils normal. Palate and uvula normal. Pharynx posterior normal Hypopharynx: Base of tongue normal Pyriform sinus normal. Larynx: Vocal cords normal. Epiglottis normal. Post cricoid normal. Salivary glands: Parotid normal. Submandibular and sublingual normal. Thyroid: normal. Lymphatic/Neck: Lymph nodes normal. Neurologic: Facial nerve normal. ASSESSMENT/PLAN: 1. Otalgia, bilateral - ICD9: 388.70, ICD10: H92.03 (primary diagnosis) 2. Facial paresthesia - ICD9: 782.0, ICD10: R20.2 3. Headaches - ICD9: 784.0, ICD10: R51.9 4. Sore throat - ICD9: 462, ICD10: J02.9 Agree with MRI will call with results Shi Henderson MD Findings will be communicated to the referring physician via mail or electronic medical record. documented in this encounter [facility] 12-17-2023 Instructions Hortencia Love DO - 12/17/2023 9:57 AM EDT Please schedule your MRI of your brain See your new PCP for continued follow up Hortencia Love DO documented in this encounter [facility] 12-17-2023 History of Presen t illness Narrative Images from the original note were not included. Medicine [place] Department of General Internal Medicine [facility] CC: follow up HPI: ELI in 10/2023 with Nhung Saavedra for facial paresthesias- ref to ENT BP- had lower BP recently and was advised to monitor at home Other health visits: Dermatology for skin exam Sports med/PT for shoulder pain R Seeing her psychiatry provider and on strattera Worsening visual changes in left eye Headaches- sensation in the back of the L skull/fullness Facial tingling/numbness is always present- worse earlier in the morning, does not go away Scheduled with ophthalmology Weight has been stable History notable for: PAST MEDICAL HISTORY Diagnosis Date Attention deficit disorder without mention of hyperactivity Adult Closed fracture of distal end of left radius 08/21/2016 Excessive or frequent menstruation History of colonoscopy 12/2020 Myalgia and myositis, unspecified Medications reviewed EXAM: BP 112/75 Pulse 88 Wt 46.4 kg (102 lb 4.7 oz) LMP 02/11/2006 BMI 17.56 kg/m Gen: NAD, pleasant CVS: RRR, S1-S2 audible, no murmur Lungs: CTA bilaterally Extremities: negative for pedal edema ASSESSMENT/PLAN: Giovanna Nation is a 63 year old year old female who presents today for follow up. ASSESSMENT/PLAN: 1. Facial paresthesia - ICD9: 782.0, ICD10: R20.2 (primary diagnosis) 2. New onset of headaches after age 50 - ICD9: 784.0, ICD10: R51.9 4. Neuralgic facial pain - ICD9: 351.8, ICD10: G51.8 Patient with 6 months of facial pain and paresthesia on Left side Intermittent vision change- scheduled with ophthalmology Onset of headaches as well after age 49 which have been persistent Proceed with MRI due to red flag symptoms - MRI BRAIN WO/W IVCON 3. Eye pain, left - ICD9: 379.91, ICD10: H57.12 Scheduled with ophthalmology for visual examination - MRI BRAIN WO/W IVCON 5. Severe episode of recurrent major depressive disorder, without psychotic features (HCC) - ICD9: 296.33, ICD10: F33.2 6. Attention deficit hyperactivity disorder (ADHD), unspecified ADHD type - ICD9: 314.01, ICD10: F90.9 Following with psychiatry Back on [facility] 7. Primary hypertension - ICD9: 401.9, ICD10: I10 - Controlled - Continue current medications - Recommend home blood pressure monitoring, to bring results to next visit - Encouraged sodium restriction, DASH or Mediterranean diet - Recommend regular aerobic exercise Discussed with patient the importance of continuity of care. I encouraged patient to schedule next appointment as noted in after visit summary. I spent 30 minutes in the visit, with more than 50% of the total [id number] time of the visit in counseling / coordination of care. SIGNATURE: Hortencia Love DO Associate Staff General Internal Medicine PAGER: [phone] DATE of SERVICE: 12/17/23 TIME of SERVICE: 7:22 AM Behavioral Health Screening PHQ-2 Score: 0 (Lower risk for depression) Recommendation: continuing current treatment plan documented in this encounter [facility] 12-13-2023 History of Presen t illness Narrative Episode Visit Count: 3 Therapist That Will Accept/Oversee The Plan Of Care: Pierre Montgomery Start of Care Date: 11/20/23 Onset Date: 07/16/23 Plan of Care Certification Date: 11/20/23 Next Certification Due Date: 01/19/24 Patient Identified by Name and Date of : Yes REHABILITATION AND SPORTS THERAPY PHYSICAL THERAPY TREATMENT NOTE ASSESSMENT: Giovanna Nation tolerated the session with expected muscle soreness. She demonstrated good form with newly added therapeutic exercises. The patient will continue to benefit from ongoing skilled physical therapy to progress toward set goals. PLAN FOR NEXT VISIT: Possibly assess the cervical spine SUBJECTIVE: When she lifted a heavy object she noticed pain down the arm into the hand. Feels the R shoulder is healing. Pain: Pain Pain Level: 3 Pain Location: Shoulder - Right OBJECTIVE MEASURES WITH LEVEL OF FUNCTION: Neck flexion WNL Neck extension WNL with worsening symptoms down the R arm Exquisitely tender along SP of cervical spine throughout with no change to arm symptoms Positive empty can test of RUE Multiple Tp's present in upper traps (R worse than L) TREATMENT: Therapeutic Exercise: 1: Standing scaption 3 x 10 3# 2: Shoulder AROM x 10 flexion Skilled Intervention: Patient was educated in proper exercise technique and purpose for exercises. Correct performance of therapeutic exercises was facilitated with verbal and visual cuing. Manual Therapy: 1: Cervical traction x 5 min (Difficulty identifying if this changed N/T in RUE) 2: STM over upper traps using thumbs moderate pressure 3: Discussed seeking out a massage therapist would be safe to do but to mention current neck pain and to have them manage their pressure as tolerated Skilled Intervention: Manual skills to improve joint mobility, ROM, and decrease pain. Utilized anatomy knowledge of the therapist, and assessment of patient's response to intervention. Self-Assisted Management: 1: Discussed central sensitivity symptoms and causes. Expressed possibility of meditation and or breathing techniques that can help calm the WOOD PILER. Skilled Intervention: Skilled judgment in the selection of proper modification for activity of daily living/home management based on clinical presentation, deficits, and needs. Billing Therapeutic Exercise Treatment Minutes: 20 Manual TherapyTreatment Minutes: 32 Self-Care/Home Management Treatment Minutes: 16 Skilled Treatment Time Minutes (timed and untimed codes): 68 Total Session Time (minutes): 68 Session Start Time : 1352 Session Stop Time : 1500 Pierre Montgomery PT documented in this encounter [facility] 12-03-2023 History of Presen t illness Narrative Program_ID:[id number] Access Code: [email or web address] URL: [email or web address] Date: 12-03-2023 Prepared By: Awilda Darby Program Notes Exercises - Supine Shoulder Flexion AAROM - 1 x daily - 7 x weekly - 2 sets - 10 reps - Supine Shoulder External Rotation with Dowel - 1 x daily - 7 x weekly - 2 sets - 10 reps - Standing Shoulder Extension with Dowel - 1 x daily - 7 x weekly - 2 sets - 10 reps - Standing Bilateral Shoulder Internal Rotation AAROM with Dowel - 1 x daily - 7 x weekly - 2 sets - 10 reps - Standing Shoulder Abduction ROM with Dowel - 1 x daily - 7 x weekly - 2 sets - 10 reps - Seated Shoulder Flexion Towel Slide at Table Top - 1 x daily - 7 x weekly - 2 sets - 10 reps - Seated Gentle Upper Trapezius Stretch - 1 x daily - 7 x weekly - 1 sets - 3 reps - Gentle Levator Scapulae Stretch - 1 x daily - 7 x weekly - 1 sets - 3 reps Episode Visit Count: 2 Therapist That Will Accept/Oversee The Plan Of Care: Pierre Montgomery Start of Care Date: 11/20/23 Onset Date: 07/16/23 Plan of Care Certification Date: 11/20/23 Next Certification Due Date: 01/19/24 Patient Identified by Name and Date of : Yes REHABILITATION AND SPORTS THERAPY PHYSICAL THERAPY TREATMENT NOTE ASSESSMENT: Giovanna Nation tolerated the session with fatigue and expected muscle soreness. She demonstrated improvements in AAROM against gravity. The patient will continue to benefit from ongoing skilled physical therapy to progress toward set goals. Goals read over and deemed still appropriate for patient by this Pierre Montgomery PT. Transfer of care accepted by this PT. PLAN FOR NEXT VISIT: Continue with AAROM, consider isometrics if time allows SUBJECTIVE: Pt reports that she is able to lay on her R shoulder for a little while, but htne numbness comes back Pain: Pain Pain Level: 4 Pain Location: Shoulder - Right OBJECTIVE MEASURES WITH LEVEL OF FUNCTION: Tightness noted in R UT. TREATMENT: Therapeutic Exercise: 1: *Seated UT stretch 3x30 seconds R 2: *Seated levator scap stretch 3x30 seconds R 3: Stand wall flexion AAROM x 10 (slight discomfort with continued reps) 4: Standing wand abduction AAROM x10 Skilled Intervention: Patient was educated in proper exercise technique and purpose for exercises. Reviewed and educated patient on additions/changes for home exercise program as above (*). Skilled judgment was used in selection of appropriate interventions. Provided written instruction for home exercise program to facilitate proper performance and compliance. Billing Therapeutic Exercise Treatment Minutes: 46 Skilled Treatment Time Minutes (timed and untimed codes): 46 Total Session Time (minutes): 46 Session Start Time : 1100 Session Stop Time : 1146 MICHELLE Lehman PT documented in this encounter [facility] 11-23-2023 Instructions Isabel Menjivar MD - 11/23/2023 8:50 AM EDT Return in 3 months for follow up of rash and actinic keratoses Return in 1 year for skin check Rash -Start triamcinolone -Notify us if not responding within 1 month or if worsening/progressing -Plan to revisit in 3 months SKIN CARE AFTER CRYOSURGERY The skin's response to cryosurgery (freezing) can be mild to severe, depending on the depth of the freeze and location of the area treated. You may have minimal redness and swelling with little discomfort or significant discoloration and blistering with considerable discomfort. A burning sensation in the skin may last from several minutes to several hours after the procedure. Follow these instructions when caring for an area treated by cryosurgery: 1. Please clean the area every day with gentle soap and water. It is not necessary to cover the site with a bandage. However, it may be used for protection and it must be changed daily. Do not leave a soiled or wet bandage on the wound. 2. If you are experiencing discomfort you may use a cool compress, elevate the area or take over the counter pain relievers. 3. Apply Vaseline or Aquaphor daily to the site. This can help with itching, irritation, and discomfort. -The lesion may take 2-4 weeks to fully resolve. Depending on the severity of treatment and lesion treated, it may take longer. -DO NOT USE NEOSPORIN OR BACITRACIN as there is a fairly high incidence of allergic response to these products. -You may experience some mild discomfort, redness, swelling, and/or a clear discharge from the wound after your procedure. Severe pain, worsening swelling, and foul-smelling discharge from the site are NOT to be expected. If you have concerns about how your wounds are healing, please send your provider a Streetline message or call . SKIN CARE AFTER CRYOSURGERY The skin's response to cryosurgery (freezing) can be mild to severe, depending on the depth of the freeze and location of the area treated. You may have minimal redness and swelling with little discomfort or significant discoloration and blistering with considerable discomfort. A burning sensation in the skin may last from several minutes to several hours after the procedure. Follow these instructions when caring for an area treated by cryosurgery: 1. Please clean the area every day with gentle soap and water. It is not necessary to cover the site with a bandage. However, it may be used for protection and it must be changed daily. Do not leave a soiled or wet bandage on the wound. 2. If you are experiencing discomfort you may use a cool compress, elevate the area or take over the counter pain relievers. 3. Apply Vaseline or Aquaphor daily to the site. This can help with itching, irritation, and discomfort. -The lesion may take 2-4 weeks to fully resolve. Depending on the severity of treatment and lesion treated, it may take longer. -DO NOT USE NEOSPORIN OR BACITRACIN as there is a fairly high incidence of allergic response to these products. -You may experience some mild discomfort, redness, swelling, and/or a clear discharge from the wound after your procedure. Severe pain, worsening swelling, and foul-smelling discharge from the site are NOT to be expected. If you have concerns about how your wounds are healing, please send your provider a Streetline message or call . documented in this encounter [facility] 11-23-2023 History of Presen t illness Narrative EST PATIENT LV: 10/09/22 w/Patti Kailee DEVELOPMENT CONSULTANT CHIEF COMPLAINT: Skin check HISTORY OF PRESENT ILLNESS: Giovanna Nation is a 63 year old female here for full body skin exam. 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 mecobalamin (B12 ACTIVE ORAL) Take by mouth. Cholecalciferol, Vitamin D3, 50 mcg (2,000 unit) cap Take 1 capsule by mouth once daily. No current facility-administered medications for this visit. PHYSICAL EXAM: General: awake, alert, no acute distress Neuropsych: appropriate mood and affect Skin: Skin exam was performed today including the following: head and face, scalp, neck, chest, abdomen, buttocks, back, bilateral upper extremities, bilateral lower extremities, hands, feet, digits, nails. Pertinent findings include: - Few scattered bright red dome-shaped papules on the trunk and extremities - Scattered light brown stellate macules on the face, shoulders, chest, and upper extremities - Scattered, evenly colored, round brown macules and papules with regular borders on the trunk and extremities - Numerous scattered skin-colored and brown, waxy, stuck-on papules and plaques on the trunk and extremities - Scaly papule on crown of scalp and nose - Lamar eczematous papule on left lower leg - R lower extremity with maroon macule c/w hemorrhage ASSESSMENT & PLAN: Clinically benign-appearing skin lesions including: lepe hemangiomas, lentigines, seborrheic keratoses, benign appearing nevi -Reassurance provided regarding the benign nature of these lesions -Recommend monthly self skin exam. Return for new, changing or otherwise concerning skin lesions. -Recommend daily sun protection with broad-spectrum sunscreen SPF 30+, avoidance of sun during peak hours, and sun protective clothing. Hemorrhage -Reassured, expect to resolve spontaneously #Actinic keratosis - Scalp lesion more hypertrophic. Discussed premalignant etiology - Recommended LN2 and discussed risks and benefits - Discussed side effects including redness, swelling, crusting, and discoloration after treatment, wound care with soap/water and vaseline - Procedure Note Cryosurgery of pre-malignant lesion(s) Risks, benefits, alternatives, complications, and personnel required for cryosurgery reviewed with patient. Specifically, the risks of permanent scar, loss or darkening of skin color, blister, incomplete treatment, and recurrence of lesion were discussed. Patient verbalizes understanding and wishes to proceed. - Cryosurgery performed with Liquid Nitrogen via cryostat spray gun to Actinic Keratosis . 4 lesion(s) treated. - Patient tolerated well and wound care discussed. Return if lesions fails to fully resolve. #Scalp dysesthesia - Discussed if discomfort does not resolve to AK treatment, to follow up with PCP or neurology #Rash -DDX is broad - eczematous vs psoriasiform vs other. - Triamcinolone 0.1% twice daily to affected areas Sunday-Sunday with flares of eczema. Take weekends off. Avoid use on face, breasts, groin, or axiillae. Counseled patient regarding side effects of topical steroids including, but are not limited to: atrophy, striae, telangectasias, tachyphylaxis, pigmentary changes, as well as risk of cataracts and glaucoma with periocular use. Informed patient that topical steroids should only be used on active skin lesions and not on normal skin. - Discussed gentle skin care and recommend liberal use of emollients (Aquaphor, Hydrolatum, Vaseline, Eucerin) multiple times throughout the day - If not resolving, consider biopsy Return to Dermatology clinic in 3-4 months for rash follow up and annually for fbse or sooner, if something concerning arises. The documentation for this note was completed by Tiara Ortiz RN acting as scribe for Isabel Menjivar MD. November 23, 2023 8:03 AM. November 23, 2023 Shahla Aguillon MD Dermatology, PGY-2 Attestation: I agree with the Chief Complaint, ROS, and Past Histories independently gathered by the clinical family support specialist, and the remaining scribed note accurately describes my personal service to the patient. I saw and evaluated Giovanna Nation, as well as developed and discussed the assessment and plan with the Resident. I have reviewed the Resident's note and agree with the history and physical examination as described, as well as the assessment and plan of care. The resident's note was annotated by me as needed to reflect my direct input. I supervised the procedure(s) performed as documented above by the Resident. Isabel Menjivar MD documented in this encounter [facility] 11-20-2023 History of Presen t illness Narrative Program_ID:[id number] Access Code: [email or web address] URL: [email or web address] Date: 11-20-2023 Prepared By: Awilda Darby Program Notes Exercises - Supine Shoulder Flexion AAROM - 1 x daily - 7 x weekly - 2 sets - 10 reps - Supine Shoulder External Rotation with Dowel - 1 x daily - 7 x weekly - 2 sets - 10 reps - Standing Shoulder Extension with Dowel - 1 x daily - 7 x weekly - 2 sets - 10 reps - Standing Bilateral Shoulder Internal Rotation AAROM with Dowel - 1 x daily - 7 x weekly - 2 sets - 10 reps - Standing Shoulder Abduction ROM with Dowel - 1 x daily - 7 x weekly - 2 sets - 10 reps - Seated Shoulder Flexion Towel Slide at Table Top - 1 x daily - 7 x weekly - 2 sets - 10 reps Episode Visit Count: 1 Therapist That Will Accept/Oversee The Plan Of Care: Awilda Darby Start of Care Date: 11/20/23 Onset Date: 07/16/23 Plan of Care Certification Date: 11/20/23 Next Certification Due Date: 01/19/24 Patient Identified by Name and Date of : Yes REHABILITATION AND SPORTS THERAPY PHYSICAL THERAPY EVALUATION PLAN OF CARE: Assessment: Giovanna Nation presents with chief complaint of R shoulder pain that interferes with lifting, physical activities, sleeping, reaching behind back, reaching overhead, use hand with arm at shoulder level, cooking, dressing, cleaning, grooming, carrying . She presents with impairments in ADL's, overall function, posture, range of motion, strength, and tissue tenderness. Patient did not complete the PROMIS (Patient Reported Outcome Measures Information System). Prognosis for therapy is Good due to: current objective clinical presentation, good overall health status . Patient tolerated initiation of home exercise program fairly well. She will benefit from skilled therapy services to meet the goals established for this plan of care as noted below. Goals for Episode of Care: created on 11/20/23 through 01/19/24 Ware in home exercise program. Patient will increase active ROM of R shoulder flexion and abduction to 120-140 degrees to allow pt to to improve performance of ADLs. Patient will demonstrate increase in R shoulder strength to >=4/5 during manual muscle testing in order to improve function for prior functional tasks. Perform functional tasks and ADL's without pain or limitation to improve her quality of life. Patient Goals: to get this pain gone Planned Interventions, Frequency, and Duration: Current Frequency: 1x/week Duration: 8 weeks Total Number of Visits Planned: 8 Planned Treatment Interventions: Therapeutic exercise (10935), Neuromuscular re-education (94393), Manual therapy (63386), Therapeutic activities (56733), Self-retirement management (37769), Patient/Family/Caregiver Education PLAN FOR NEXT VISIT: Initiate use of shoulder PROM/joint mobs/STM next visit. Continue with shoulder ROM, add strengthening as able. Add pulleys, wall slides, light strengthening. Patient demonstrates good understanding of plan of care and treatment. The above goals and plan of care were discussed and agreed upon by patient/family. SUBJECTIVE: R shoulder pain. There was maybe some issues a few months ago, but in the past week it got a lot worse. Now I can't reach or do anything with my arm. RHD. Issues sleeping, have to take tylenol. I lifted something way to heavy at home awhile ago. I was reaching to give someone a hug who is six foot tall and it hurt right away. I am getting dressed ok. 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 5 points is clinically meaningfully difference Percentiles provide an indication of how the patient's score ranks in relation to the general population. Higher percentile rankings indicate better function/quality of life. 50th percentile is the average of the general population and indicates half of respondents had a worse score. OBJECTIVE MEASURES WITH LEVEL OF FUNCTION: Posture / Alignment Posture: Forward head, Rounded shoulders (mild) Shoulder Observations R Shoulder Palpation Tenderness: AC joint, Bicipital groove Cervical Spine ROM Cervical ROM : Limitation AROM Cervical Protrusion AROM: Normal Cervical Retraction AROM: Normal Cervical Flexion AROM: Normal Cervical Extension AROM: Normal Cervical Side-Bend Right AROM: Normal Cervical Side-Bend Left AROM: Normal Cervical Rotation Right AROM: Normal Cervical Rotation Left AROM: Normal UE AROM R Shoulder Extension: 60 Degrees R Shoulder Flex: 65 Degrees (pain) R Shoulder ABduction: 45 Degrees (pain) R Shoulder Internal Rotation (Functional): T4 R Shoulder External Rotation: 75 Degrees R Shoulder External Rotation (Functional): unable to perform due to pain L Shoulder Extension: 65 Degrees L Shoulder Flex: 180 Degrees L Shoulder ABduction: 180 Degrees L Shoulder Internal Rotation (Functional): T3 L Shoulder External Rotation (Functional): T5 UE and Cervical Strength Strength Tested: Shoulder Functional Strength R Shoulder Extension: 4+/5 R Shoulder Flexion: 3-/5 R Shoulder Abduction (C5): 3-/5 R Shoulder Internal Rotation: 4/5 R Shoulder External Rotation: 4/5 R Elbow Extension (C7): 4+/5 R Elbow Flexion (C6): 4+/5 L Shoulder Extension: 5/5 L Shoulder Flexion: 5/5 L Shoulder Abduction (C5): 5/5 L Shoulder Internal Rotation: 5/5 L Shoulder External Rotation: 5/5 L Elbow Extension (C7): 5/5 L Elbow Flexion (C6): 5/5 Special Tests - Shoulder Shoulder Special Tests: Empty Can, Nick-Marcial, [place], Neer Empty Can: Right Positive Nick-Marcial: Right Positive Neer: Right Positive [place]: Right Positive Vitals Pulse: 72 Education: Education Learning Preferences: Demonstration, Explanation, Performance, Printed Materials Barriers: None Learning/educational needs: Home exercise program, Plan of Care Education Provided: Yes, see treatment interventions for education provided Education Provided To: Patient Education Mode/Type: Demonstration, Explanation/Discussion, Literature/Printed Materials, Performance Response to Education/Teach Back: States/Identifies, Return Demonstration TREATMENT: PT Treatment Interventions: Therapeutic Exercise Evaluation Therapeutic Exercise: 1: supine cane ER 15x R 2: supine AA flexion 15x L (attempted supine cane flexion, but discontinued due to pain) 3: standing cane extension 15x 4: standing cane IR 15x 5: standing cane abduction 15x R 6: table slides into flexion 5 sec hold 15x Skilled Intervention: Patient was educated in proper exercise technique and purpose for exercises. Skilled judgment was used in selection of appropriate interventions. Provided written instruction for home exercise program to facilitate proper performance and compliance. Correct performance of therapeutic exercises was facilitated with verbal, visual, and tactile cuing. Education in use of heat and ice and parameters for each. Patient education as noted. Billing * Evaluation Low Complexity: 1 Unit Therapeutic Exercise Treatment Minutes: 15 Skilled Treatment Time Minutes (timed and untimed codes): 40 Total Session Time (minutes): 40 Session Start Time : 1502 Session Stop Time : 1542 Awilda Darby PT documented in this encounter [facility] 11-20-2023 History of Presen t illness Narrative Sue WestbrookD. manager imaging [facility] [address] [facility] [place] [address] INITIAL ENCOUNTER FOR A NEW SHOULDER PROBLEM Chief Complaint: Right shoulder pain HPI: Giovanna Nation is seen at the request of Hortencia Love for consultation regarding the above problem. Findings and recommendations will be communicated back to the referring provider via availability in the shared electronic medical record. Giovanna Nation is a 63 year old female who presents with the above complaint. Hand dominance: Right. She started having pain six days ago after lifting a heavy umbrella stand. Pain worse with certain movements. Feels a catching sensation in the shoulder. Was seen in [place] by another provider and is here for another opinion today. She likes to remain very active. No formal treatment. She denies having any neck pain, radicular pain, numbness/tingling in the arm. Patient does not note any associated mechanical symptoms. All available outside records have been reviewed. REVIEW OF SYSTEMS: Constitutional: patient denies any recent fever or significant change in weight Cardiovascular: patient denies any chest pain at rest Respiratory: patient denies any shortness of breath or cough Gastrointestinal: patient denies any current abdominal discomfort Integumentary: patient denies any recent skin changes Musculoskeletal: as noted in the HPI Neurologic: as noted in the HPI Endocrine: patient denies a current diagnosis of diabetes Hematologic/Lymphatic: patient denies any easily bleeding, any recent infection and denies any recent observable lymph node enlargement Psychologic: negative for any recent depression or anxiety issues FAMILY HISTORY Problem Relation Age of Onset Cancer Mother Cervical cancer- treated Psychiatry Sister suicide Ischemic Heart Disease Brother 60 [place], heavy smoker, Etoh Psychiatry Son Opoid dependency Cancer Other Niece (sister's daughter) PAST MEDICAL HISTORY Diagnosis Date Attention 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 Contributory Co-morbidities: Assessed as indicated; currently managed. Social History: Physical Activity/Sports/Exercise: recreational, rowing, walking Social History Tobacco Use Smoking status: Former Packs/day: .5 Types: Cigarettes Smokeless tobacco: Never Vaping Use Vaping Use: Former Substance Use Topics Alcohol use: No Drug use: Never Current Outpatient Medications Medication Sig atomoxetine (STRATTERA) 25 mg capsule Take 25 mg by mouth every morning. lidocaine (LIDODERM) 5 % apply 2 patches TO THE AFFECTED AREA DAILY. LEAVE ON FOR 12 HOURS AND THEN OFF FOR 12 HOURS. losartan-hydroCHLOROthiazide (HYZAAR) 50-12.5 mg per tablet Take 1 tablet by mouth once daily. mecobalamin (B12 ACTIVE ORAL) Take by mouth. Cholecalciferol, Vitamin D3, 50 mcg (2,000 unit) cap Take 1 capsule by mouth once daily. No current facility-administered medications for this visit. Physical Exam: [facility] 02/11/2006 Constitutional: Pleasant, well-appearing, no acute distress. Resp: breathing is unlabored without audible wheeze Vascular: Normal pedal and radial pulses, no cyanosis, no venous stasis changes Skin: No overlying skin change, ecchymosis, or erythema. Psychiatric: Pleasant, direct, appropriate mood and affect General Orthopaedic Examination: Ambulates well. No other major joint abnormalities noted. Motor: 5/5 IO, FPL, OP, hand safety relief valve technician, biceps, triceps, deltoid Sensory: SILT ulnar/median/radial distributions bilat (C1-T1 intact) ROM: intact in all joints. Pulses: 2+ radial, ulnar; hands warm bilat, <2sec CR Compartments: soft and compressible Cervical Spine:Appropriate range of motion, negative midline and paraspinal muscle tenderness, negative stepoff, and negative Spurling's test. Focused Upper Extremity Musculoskeletal/Neurologic Exam: Contra-lateral shoulder wnl. ROM-Shoulders: Right: 140/ER:50/IR:T8 Left: 180/ER:50/IR:T8 Rotator Cuff Strength:5/5 . Pain with rotator cuff testing? No. Special Tests (as indicated): Neer/Nick:Positive Speed's Test:Negative Yergeson's Test:Negative Belly Press: Negative Lift Off: Negative Justice's Test:Negative Cross Body Adduction:Negative Jerk Test:Negative Apprehension:Negative Sulcus:Negative Load and Shift:Negative Radiographic studies: Plain Radiographs of the involved shoulder were reviewed and interpreted by me and discussed with patient. Findings:No fracture or dislocation. Assessment/Primary Diagnosis: (M25.811) Impingement of right shoulder (primary encounter diagnosis) Plan/Medical Decision Making: The nature of the problem and all indicated treatment options available were discussed in detail with the patient. Test(s)/Imaging/Referral(s): None 2. Intervention: Graduated occupational/physical therapy program 3. Follow-up: 2 months if not improving All of Giovanna Nation questions were answered today. She expressed a clear understanding of our discussion and is in agreement with the outlined treatment plan. Juliane Denise PA-C CC:Hortencia Love documented in this encounter [facility] 11-13-2023 History of Presen t illness Narrative Images from the original note were not included. Subjective HPI HPI Giovanna Nation is a 62 year old female who presents today for CC of possible tick bites. This started unkown. Has tried nothing for relief. Symptoms are worsened by nothing. .Patient presents with: Insect Bite: tick on right ankle PAST MEDICAL HISTORY Diagnosis Date Attention deficit disorder without mention of hyperactivity Adult Closed fracture of distal end of left radius 08/21/2016 Excessive or frequent menstruation History of colonoscopy 12/2020 Myalgia and myositis, unspecified PAST SURGICAL HISTORY Procedure Laterality Date APPENDECTOMY APPENDECTOMY HX LIG/TRNSXJ FLP TUBE ABDL/VAG APPR UNI/BI Tubal ligation ALLERGIES Flovent [Fluticasone Propionate], Penicillins, and Prednisone MEDICATIONS losartan-hydroCHLOROthiazide (HYZAAR) 50-12.5 mg per tablet Take 1 tablet by mouth once daily. mecobalamin (B12 ACTIVE ORAL) Take by mouth. Cholecalciferol, Vitamin D3, 50 mcg (2,000 unit) cap Take 1 capsule by mouth once daily. FAMILY HISTORY Problem Relation Age of Onset Cancer Mother Cervical cancer- treated Psychiatry Sister suicide Ischemic Heart Disease Brother 60 [place], heavy smoker, Etoh Psychiatry Son Opoid dependency Cancer Other Niece (sister's daughter) Social History Tobacco Use Smoking status: Former Packs/day: .5 Types: Cigarettes Smokeless tobacco: Never Vaping Use Vaping Use: Former Substance Use Topics Alcohol use: No Drug use: Never ROS Objective Blood pressure 102/68, pulse 72, temperature 36.6 C (97.9 F), resp. rate 16, weight 48.2 kg (106 lb 4.2 oz), last menstrual period 02/11/2006. Physical Exam Constitutional: General: She is not in acute distress. Appearance: She is not toxic-appearing or diaphoretic. HENT: Head: Normocephalic and atraumatic. Pulmonary: Effort: Pulmonary effort is normal. No accessory muscle usage or respiratory distress. Skin: Neurological: Mental Status: She is alert and oriented to person, place, and time. ASSESSMENT/PLAN: 1. Skin lesion - ICD9: 709.9, ICD10: L98.9 Will refer to dermatology Not a tick - CONSULT TO DERMATOLOGY Daniel Whatley APRN.DEVELOPMENT CONSULTANT documented in this encounter [facility] 10-15-2023 History of Presen t illness Narrative CC: follow up HPI: Giovanna Nation is a 62 year old female who presents to the 0 clinic for the above chief complaint. 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 Primary Osteoarthritis of First Carpometacarpal Joint of Left Hand Lateral Epicondylitis of Left Elbow Cubital Tunnel Syndrome On Left Pain in Left Wrist Chronic Left Shoulder Pain Pain in Left Elbow Numbness and Tingling in Left Upper Extremity Tobacco Abuse, in Remission Vitamin D Deficiency Vitamin B12 Deficiency Mdd (Major Depressive Disorder), Recurrent Episode, Severe (Hcc) Past Surgical History: PAST SURGICAL HISTORY Procedure Laterality Date APPENDECTOMY APPENDECTOMY HX LIG/TRNSXJ FLP TUBE ABDL/VAG APPR UNI/BI Tubal ligation Medications: Current Outpatient Medications on File Prior to Visit Medication Sig losartan-hydroCHLOROthiazide (HYZAAR) 50-12.5 mg per tablet Take 1 tablet by mouth once daily. mecobalamin (B12 ACTIVE ORAL) Take by mouth. Cholecalciferol, Vitamin D3, 50 mcg (2,000 unit) cap Take 1 capsule by mouth once daily. No current facility-administered medications on file prior to visit. PE: BP 102/67 Pulse 90 Wt 47.6 kg (104 lb 15 oz) LMP 02/11/2006 BMI 18.01 kg/m General: Alert, calm, cooperative, pleasant. Speech clear and coherent Eyes: Conjunctiva clear without injection or drainage Ears: External ear normal. External ear canal clear. TM pearly treviño without erythema or effusion bilaterally Neck: No preauricular, postauricular, submental, anterior or posterior cervical adenopathy or tenderness present Heart: Regular rate Lungs: Breathing unlabored Neuro: facial sensation intact and equal bilaterally, no asymmetry present, no facial droop CN 3-12 grossly intact Assessment and Plan 1. Facial paresthesia - ICD9: 782.0, ICD10: R20.2 (primary diagnosis) - post Covid, exam WNL - CONSULT TO ENT 2. Benign essential HTN - ICD9: 401.1, ICD10: I10 BP controlled/ low 102/67 - denies dizziness/LH symptoms - offered to decrease dose, pt. Declined but will continue to monitor at home, cont. Current meds I spent a total of 40 minutes on the date of the service which included preparing to see the patient, [id number] patient care, completing clinical documentation, obtaining and/or reviewing separately obtained history, performing a medically appropriate examination, counseling and educating the patient/family/caregiver, and ordering medications, tests, or procedures. Nhung Saavedra APRN.SUNG documented in this encounter [facility] 06-08-2023 History of Presen t illness Narrative Radiology Service Progress Note PATIENT NAME: Giovanna Nation DATE OF SERVICE: June 08, 2023 TIME: 1:57 PM PATIENT IDENTITY VERIFICATION COMPLETED USING TWO (2) IDENTIFIERS: Name and Date of confirmed by patient verbally. FALL SCREENING: Has the patient had 2 falls in the last year or 1 fall with injury or currently using an Ambulatory Assistive Device (Walker, Cane, Wheelchair, Crutches, etc.)? No PATIENT GENDER DATA: Female. status: : No status: NO. PATIENT RELEVANT IMPLANT DATA REVIEWED: Not Applicable RADIOLOGY DEPARTMENT: General X-ray: Exam(s) Completed: Chest X-Ray PERIPHERAL IV DATA: Not applicable SIGNED BY: Radha Ortiz RT(R) June 08, 2023 1:57 PM documented in this encounter [facility] 06-06-2023 Miscellaneous Notes Patient returned call and message was given. She will get done on Sunday She asked about elevated levels that was mentioned on her message. documented in this encounter [facility] 05-22-2023 Miscellaneous Notes Images from the original note were not included. Phone call to patient to relay the below message from Dr. Love: Hortencia Love, DO P G10 B Nurse Pool Can we please call pt and inform that COVID testing was negative She should give us a call if she still has a cough in a couple weeks despite following the instructions we discussed at her visit Thank you! Hortencia She expressed understanding of message and had no questions. documented in this encounter [facility] 05-21-2023 History of Presen t illness Narrative Images from the original note were not included. Medicine [place] Department of General Internal Medicine [facility] CHIEF COMPLAINT: cough, skin concern HPI: Giovanna Nation is a 62 year old female who presents today for a follow-up visit. Cough- called in to nurse triage - has had dry cough since vaccinations from last office visit Started after she got RSV and tetanus vaccine, That night developed and continues to have a dry cough , She c/o slight shortness of breath, lungs feel irritated, fatigue Concern of skin bumps on scalp and would like examined HISTORY: PAST MEDICAL HISTORY Diagnosis Date Attention deficit disorder without mention of hyperactivity Adult Closed fracture of distal end of left radius 08/21/2016 Excessive or frequent menstruation History of colonoscopy 12/2020 Myalgia and myositis, unspecified MED: losartan-hydroCHLOROthiazide (HYZAAR) 50-12.5 mg per tablet Take 1 tablet by mouth once daily. mecobalamin (B12 ACTIVE ORAL) Take by mouth. atomoxetine (STRATTERA) 40 mg capsule Take by mouth. Cholecalciferol, Vitamin D3, 50 mcg (2,000 unit) cap Take 1 capsule by mouth once daily. FLOWFLEX COVID-19 AG HOME TEST kit (Patient not taking: Reported on 05/21/2023) EXAM: BP 116/73 Pulse 87 Wt 41.9 kg (92 lb 6.4 oz) LMP 02/11/2006 BMI 15.86 kg/m Gen: NAD, pleasant and cooperative, well-hydrated and well-nourished CVS: RRR, S1-S2 audible, no murmur Lungs: CTA bilaterally Extremities: negative for pedal edema ASSESSMENT/PLAN: Giovanna Nation is a 62 year old year old female who presents today for cough. ASSESSMENT/PLAN: 1. Acute cough - ICD9: 786.2, ICD10: R05.1 (primary diagnosis) Symptom onset after visiting office and receiving vaccinations- possibly viral vs allergic Responding to PPI over past couple days- she will continue and inform me if cough persistent or worsens - COVID & INFLUENZA A/B & RSV NAAT, ROUTINE - COVID NAAT, UPPER RESPIRATORY, ROUTINE - ROUTINE FLU A/B + RSV 2. Weight loss - ICD9: 783.21, ICD10: R63.4 Noted weight loss over past year no symptoms other than recent cough- investigate with labs - [facility] SCREENING - COMP METABOLIC PANEL - CBC + DIFF - SED RATE WESTERGREN - C-REACTIVE PROTEIN (CRP) 3. Dry scalp - ICD9: 701.1, ICD10: R23.8 No signs of infection Continue to monitor and inform me if symptoms worsen/fail to improve Discussed with patient the importance of continuity of care. I encouraged patient to schedule next appointment as noted in after visit summary. I spent 30 minutes in the visit, with more than 50% of the total [id number]-hw-zvvl time of the visit in counseling / coordination of care. SIGNATURE: Hortencia Love DO Associate Staff General Internal Medicine PAGER: [phone] DATE of SERVICE: 05/21/23 TIME of SERVICE: 7:48 AM documented in this encounter [facility] 05-08-2023 Miscellaneous Notes Patient called the office and the message from the MD was delivered. Attempted to call patient, left voicemail. Juliana Bo, GLEN Attempted to call patient, long distance code is not working. After being entered a beeping sounds starts and doesn't stop. Juliana Bo, GLEN Images from the original note were not included. Hortencia Love DO P G10 B Nurse Pool Can we please call patient Potassium is high on her labs- she does not qualify to use olmesartan for her BP Her thryroid function is fine I will send in another BP medication- similar to the one we talked about but should not cause potassium to go as high. She will need to get labs checked again in 1-2 weeks after starting and should keep monitoring her BP at home Thanks- Hortencia :) documented in this encounter [facility] 05-07-2023 Instructions Hortencia Love DO - 05/07/2023 9:39 AM EDT For congestion: - use ocean spray for 1 week twice daily - use tylenol as needed for headache - message me if symptoms do not improve Blood pressure: We are staring olmesartan for your blood pressure Please get your labs checked within 1- 2 weeks of starting- we will check your electrolytes Today we discussed your blood pressure. Why is blood pressure important? Untreated high blood pressure is associated with strokes, heart disease and heart failure, and kidney problems. The most common symptom of high blood pressure is NO SYMPTOM. Your blood pressure is high and we need to lower it to protect your kidneys, heart, brain, blood vessels. The longer your blood pressure is high, the more damage you do to your heart, blood vessels, and brain. Your goal BP should be consistenetly < 130/80 What is the correct way to measure blood pressure? Many times you may only need to measure your blood pressure once a day Measure your blood pressure in the morning after using the bathroom before taking your blood pressure pills Sit in a comfortable chair with your back supported for at least 5 minutes before your reading. Put both feet flat on the ground and keep your legs uncrossed. Rest your arm with the cuff on a table at chest height. Make sure the blood pressure cuff is snug but not too tight. The cuff should be against your bare skin, not over clothing. Do not talk while your blood pressure is being measured. Discard your first blood pressure reading. Wait 5 minutes without adjusting your cuff and take your blood pressure again. Document only the second blood pressure and heart rate reading on paper. Bring that blood pressure log with you to your visit to review. Blood pressure logs: Approved by [employer]: ValidateBP.org Bring your monitor in to your office visits so that we can be sure it matches up with ours! [employer] recommends the following cuff size: Arm circumference 22 to 26 cm, small adult cuff, 12 x 22 cm Arm circumference 27 to 34 cm, adult cuff, 16 x 30 cm Arm circumference 35 to 44 cm, large adult cuff, 16 x 36 cm Arm circumference 45 to 52 cm, adult thigh cuff, 16 x 42 cm What should I do if my blood pressures are high? Call the office with your numbers documented in this encounter [facility] 05-07-2023 History of Presen t illness Narrative Images from the original note were not included. [facility] Department of General Internal Medicine [facility] CHIEF COMPLAINT: follow up BP HPI: Giovanna Nation is a 62 year old female who presents today for a follow-up visit. ELI with Dr. Holly on 01/08/23 to discuss ADHD, elevated blood pressure to 140/93, advance directives Elevated BP-advised to follow DASH diet, home blood pressure monitoring, since that time BP has been - she has a younger brother and mother with a stroke history ADHD- on strattera, notably with BP increased, symptoms are well controlled, she is following with psych - provider switched to [facility] but continues to rx her medications COVID concerns- had sore throat, worse when she is laying down, post nasal drip, frontal IRELAND, using tylenol occasionally which somewhat helps HISTORY: PAST MEDICAL HISTORY Diagnosis Date Attention deficit disorder without mention of hyperactivity Adult Closed fracture of distal end of left radius 08/21/2016 Excessive or frequent menstruation History of colonoscopy 12/2020 Myalgia and myositis, unspecified MED: FLOWFLEX COVID-19 AG HOME TEST kit mecobalamin (B12 ACTIVE ORAL) Take by mouth. atomoxetine (STRATTERA) 40 mg capsule Take by mouth. Cholecalciferol, Vitamin D3, 50 mcg (2,000 unit) cap Take 1 capsule by mouth once daily. EXAM: BP 147/87 Pulse 96 Wt 42.9 kg (94 lb 9.6 oz) LMP 02/11/2006 BMI 16.24 kg/m Gen: NAD, pleasant and cooperative, well-hydrated and well-nourished CVS: RRR, S1-S2 audible, no murmur Oropharynx clear, nasal turbinates with inflammation Lungs: CTA bilaterally Extremities: negative for pedal edema ASSESSMENT/PLAN: Giovanna Nation is a 62 year old year old female who presents today for follow up. ASSESSMENT/PLAN: 1. Encounter for immunization - ICD9: V03.89, ICD10: Z23 (primary diagnosis) - TDAP VACCINE, AGE 7+ YR (ADACEL, BOOSTRIX) - RSV VACCINE, BIVALENT (ABRYSVO) Rx printed and to be mailed to pt 2. Severe episode of recurrent major depressive disorder, without psychotic features (HCC) - ICD9: 296.33, ICD10: F33.2 Well controlled at this time Continue follow up with psychiatry 3. Unspecified essential hypertension - ICD9: 401.9, ICD10: I10 - Uncontrolled - Start hyzaar - Recommend home blood pressure monitoring, to bring results to next visit - Encouraged sodium restriction, DASH or Mediterranean diet - Recommend regular aerobic exercise - RENAL FUNCTION PANEL 4. Therapeutic drug monitoring - ICD9: V58.83, ICD10: Z51.81 5. Hyperkalemia - ICD9: 276.7, ICD10: E87.5 - RENAL FUNCTION PANEL Discussed with patient the importance of continuity of care. I encouraged patient to schedule next appointment as noted in after visit summary. I spent 30 minutes in the visit, with more than 50% of the total [id number] time of the visit in counseling / coordination of care. SIGNATURE: Hortencia Love DO Associate Staff General Internal Medicine PAGER: [phone] DATE of SERVICE: 05/06/23 TIME of SERVICE: 2:20 PM documented in this encounter [facility] 04-16-2023 Nurse Note Giovanna Nation presents today to Internal Medicine for a nurse visit. Patient verified by name and . Allergies reviewed and verified. Reason for Nurse Visit: Immunization Covid Pt identified by name and date of . Allergies reviewed. yes VIS discussed with patient with good understanding. yes vaccine given as ordered in right deltoid, patient tolerated well. See Immunization Form in [facility] for details of immunizations administered today. VIS sheet given. Doc Flow Nursing Scorecard has been completed: Yes Charge Capture has been updated and filed appropriately. Yes Follow up instructions given and After Visit Summary was provided to patient. Yes Bill Reese LPN documented in this encounter [facility] 04-13-2023 Miscellaneous Notes Patient identified by name and date of . Patient given message below. No questions at this time. Santa Gutierrez RN Please let patient know his stool test cologuard was negative Repeat testing is recommended in 3 years Atiya Holly MD documented in this encounter [facility] 01-08-2023 History of Presen t illness Narrative INTERNAL MEDICINE PRIMARY CARE SERVICE DATE: 01/08/2023 PATIENT NAME: Giovanna Nation PRIMARY CARE PHYSICIAN: Hortencia Love DO Subjective CHIEF COMPLAINT: Follow up HISTORY OF PRESENT ILLNESS: Ms. Nation is a 62 year old female who presents with concerns about ADHD, elevated blood pressure and discussion of advance directives ADHD Seeing Psychiatry for ADHD and medication management Reports compliance with taking current medication(s) as directed, denies adverse effects Has last visit with Psychiatrist coming up, will be last visit since provider is retiring Said she last filled her atomoxetine (30 day supply yesterday) Elevated Blood Pressure States she has noted her blood pressure getting higher and higher Endorses strong family history of hypertension She has quit smoking but she did smoke for almost 35 years (12 cigarettes a day) Reports she avoids excess sodium in her diet ; says she tried to stay and eat healthy as much as possible; reports she is a vegan Last 4 Encounter BP Readings: Date: BP: 01/08/2023 140/93[Simona reading[ 06/13/2022 138/82[simona BP avg[ 01/11/2022 130/80 05/12/2021 137/79 Advanced Directives Mother in 05/2022 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 She is now wanting to get her own advanced directed completed Expresses her wishes for DNR and no CPR She reports she would like to have advanced directives completed but does not have anyone she is comfortable enough or close enough to witness it for her PAST MEDICAL HISTORY Diagnosis Date Attention deficit disorder without mention of hyperactivity Adult Closed fracture of distal end of left radius 08/21/2016 Excessive or frequent menstruation History of colonoscopy 12/2020 Myalgia and myositis, unspecified PAST SURGICAL HISTORY Procedure Laterality Date APPENDECTOMY APPENDECTOMY HX LIG/TRNSXJ FLP TUBE ABDL/VAG APPR UNI/BI Tubal ligation FAMILY HISTORY Problem Relation Age of Onset Cancer Mother Cervical cancer- treated Psychiatry Sister suicide Ischemic Heart Disease Brother 60 [place], heavy smoker, Etoh Psychiatry Son Opoid dependency Cancer Other Niece (sister's daughter) Social History Tobacco Use Smoking status: Former Packs/day: 0.50 Types: Cigarettes Smokeless tobacco: Never Vaping Use Vaping Use: Former Substance Use Topics Alcohol use: No Drug use: Never MEDICATIONS: Current Outpatient Medications on File Prior to Visit Medication Sig mecobalamin (B12 ACTIVE ORAL) Take by mouth. atomoxetine (STRATTERA) 40 mg capsule Take by mouth. Cholecalciferol, Vitamin D3, 50 mcg (2,000 unit) cap Take 1 capsule by mouth once daily. FLOWFLEX COVID-19 AG HOME TEST kit No current facility-administered medications on file prior to visit. ALLERGIES Allergen Reactions Flovent [Fluticason* Other: See Comments took breath away Penicillins Rash Prednisone Mental Status Change Depression REVIEW OF SYSTEMS: GENERAL: No weight loss, malaise or fevers HEENT: Negative for frequent or significant headaches, No changes in hearing or vision, no nose bleeds or other nasal problems NECK: Negative for lumps, goiter, pain and significant neck swelling RESPIRATORY: Negative for cough, hemoptysis, wheezing or shortness of breath CARDIOVASCULAR: Negative for chest pain, leg swelling or palpitations GI: No nausea, vomiting, diarrhea or constipation : No history of dysuria, frequency or incontinence ENDOCRINE: Negative for cold or heat intolerance, polyuria, polydipsia NEURO: No history of headaches, syncope, paralysis, seizures or tremors PSYCH: Negative for sleep disturbance, mood disorder and recent psychosocial stressors MUSCULOSKELETAL: Negative for joint pain or swelling, back pain or muscle pain SKIN: Negative for lesions, rash, and itching HEMATOLOGY/LYMPHOLOGY: Negative for prolonged bleeding, bruising easily or swollen nodes PAIN ASSESSMENT: Negative for pain, FINANCIAL SALES REPRESENTATIVE: Negative for abnormal vaginal bleeding, abnormal vaginal discharge Objective PHYSICAL EXAM: 01/08/23 1219 BP: 140/93 Pulse: 95 Weight: 45.5 kg (100 lb 4.8 oz) Body mass index is 17.22 kg/m . GENERAL: Alert, no distress, cooperative SKIN: Skin color, texture, turgor normal. No rashes or lesions. HEENT: Normocephalic, pupils normal, extraocular movements normal OROPHARYNX: Lips, mucosa, and tongue are normal. NECK: Supple. Thyroid normal No cervical and supraclavicular lymphadenopathy No jugulovenous distention, No carotid bruits. BREAST and AXILLA: normal. Director Of Student Services present LUNGS: Lungs clear to auscultation. No wheeze or crackles. CARDIAC: Normal S1 and S2; no rubs, murmurs, or gallops ABDOMEN: Abdomen soft, non-tender, No masses or organomegaly NEURO: Alert, oriented X 3, Non-focal. Gait normal EXTREMETIES: Extremities normal No edema. PULSES: 2+ radial, 2+ dorsalis pedis Diagnostic tests reviewed for today's visit: Latest Reference Range & Units 06/13/22 11:57 06/26/22 11:55 Sodium 136 - 144 mmol/L 142 139 Potassium 3.7 - 5.1 mmol/L 5.4 (H) 4.4 Chloride 97 - 105 mmol/L 106 (H) 103 CO2 22 - 30 mmol/L 25 25 BUN 7 - 21 mg/dL 13 11 Creatinine 0.58 - 0.96 mg/dL 0.67 0.69 Glucose 74 - 99 mg/dL 88 83 Protein, Total 6.3 - 8.0 g/dL 6.6 Calcium 8.5 - 10.2 mg/dL 9.8 9.4 Phosphorus 2.7 - 4.8 mg/dL 3.8 Albumin 3.9 - 4.9 g/dL 4.3 4.1 Bilirubin, Total 0.2 - 1.3 mg/dL 0.4 Alkaline Phosphatase 34 - 123 U/L 76 ALT 7 - 38 U/L 15 AST 13 - 35 U/L 25 Anion Gap 9 - 18 mmol/L 11 11 eGFR >=60 mL/min/1.73m 99 98 CRP <0.9 mg/dL <0.3 Cholesterol, Total <200 mg/dL 165 Triglyceride <150 mg/dL 69 Fasting Time hrs 12 HDL Cholesterol >39 mg/dL 51 LDL Cholesterol <100 mg/dL 100 (H) VLDL Cholesterol <30 mg/dL 14 TC:HDL Ratio <5.10 3.24 LDL:HDL Ratio <2.54 1.96 Non HDL Cholesterol <130 mg/dL 114 Vitamin D 25 Hydroxy 31.0 - 80.0 ng/mL 44.8 WBC 3.70 - 11.00 k/uL 5.30 RBC 3.90 - 5.20 m/uL 4.49 Hemoglobin 11.5 - 15.5 g/dL 13.6 Hematocrit 36.0 - 46.0 % 41.9 Platelet Count 150 - 400 k/uL 282 MCV 80.0 - 100.0 fL 93.3 MCH 26.0 - 34.0 pg 30.3 MCHC 30.5 - 36.0 g/dL 32.5 MPV 9.0 - 12.7 fL 9.8 RDW-CV 11.5 - 15.0 % 11.6 DTYPE Auto Neut% % 55.4 Abs Neut (ANC) 1.45 - 7.50 k/uL 2.94 Lymph% % 33.6 Abs Lymph 1.00 - 4.00 k/uL 1.78 Big Stone% % 8.7 Abs [place] <0.87 k/uL 0.46 Eosin% % 1.3 Abs Eosin <0.46 k/uL 0.07 Baso% % 0.8 Abs Baso <0.11 k/uL 0.04 Immature Gran % % 0.2 IMMATURE GRANS (ABS) <0.10 k/uL <0.03 NRBC /100 WBC 0.0 Absolute nRBC <0.01 k/uL <0.01 WSR 0 - 20 mm/hr 5 (H): Data is abnormally high Assessment/Plan 1. Elevated BP without diagnosis of hypertension - ICD9: 796.2, ICD10: R03.0 (primary diagnosis) Likely related to ADD medication - Encouraged dietary sodium restriction/DASH diet - Recommend home blood pressure monitoring 2. Screening for colon cancer - ICD9: V76.51, ICD10: Z12.11 HM reviewed and plan of care discussed - BIMAL 3. Attention deficit hyperactivity disorder (ADHD), unspecified ADHD type - ICD9: 314.01, ICD10: F90.9 Patient requesting atomoxetine refills to be completed Education: Counseled on advance directive RTC: in 04/2023 with PCP I spent a total of 30 minutes on the date of the service which included preparing to see the patient, [id number] patient care, completing clinical documentation, obtaining and/or reviewing separately obtained history, and counseling and educating the patient/family/caregiver. Scribe Attestation: By signing my name below, I, Lucia Elder, attest that this documentation has been prepared under the direction and in the presence of Atiya Holly MD Electronically Signed: Piper Sidhu. January 08, 2023 12:44 PM I, Atiya Holly MD, personally performed the services described in this documentation. All medical record entries made by the sherlynibcolton were at my direction and in my presence. I have reviewed the chart and discharge instructions (if applicable) and agree that the record reflects my personal performance and is accurate and complete. Electronically Signed: Atiya Holly MD. January 08, 2023 documented in this encounter [facility] 01-08-2023 Nurse Note AND CORRECT NAME VERIFIED BY PATIENT. Vero Cherry Ma January 08, 2023 12:19 PM documented in this encounter [facility] 10-24-2022 Miscellaneous Notes I have sent PA form to [facility] for patients Tretinoin SENT ELECTRONICALLY THOUGH [employer] used L81.4 documented in this encounter [facility] 10-10-2022 Miscellaneous Notes Patient returned your call and can be reached at: Call patient at: at home [phone] (home) [phone] (cell) FINAL DIAGNOSIS A. Skin, left lower lid, shave biopsy: - Epidermal inclusion cyst. Called patient to discuss biopsy results. Pt understands and has no further questions. Patti Dugan APRN.CNP documented in this encounter [facility] 10-09-2022 History of Presen t illness Narrative EST PATIENT Last visit: [facility] 02/2021 Kassandra KHAN Chief Complaint: FBSE History of Present Ilness: Giovanna Nation is a 61 year old female presents today for a full body skin exam. Location: lower left side of bottom lip - bump Duration: couple years Symptoms: none Previous treatment: none Lesion #1 Location: right side of neck mole Duration: few years Growth: no but has some pigment that it did not have before Bleeding:none Pain: none Current tx: none Lesion #2 Location: right mid upper back Duration: years Growth: unsure Bleeding: none Pain: none Current tx: none No other concerns today /planning or : n/a Pertinent Past Medical History: -Personal history of skin cancer: No -Personal history of skin disease: No -History of organ transplant/immunosuppressed: No -History of atypical moles: No -Pacemaker or defibrillator: No Specialty Problems Dermatology Problems Numbness and tingling in left upper extremity Pertinent Family medical history: History of melanoma: No History of non melanoma skin cancer: No Review of Systems: Constitutional: Denies fever, chills, night sweats, unintentional weight loss. Skin per HPI. No other new/concerning skin growth. Physical Exam: General: well appearing, of stated age, in no acute distress Neurology: alert and oriented times three Psychiatry: normal affect and speech Arrington skin type: II A skin exam was done of the scalp, face including eyelids and lips, ears, neck, chest, back, abdomen, bilateral upper extremities including digits, bilateral lower extremities and digits, buttocks, nails, except genitals Skin exam normal with the exception of: A) 0.4 x 0.4 CM pink/yellow papule on left lower lip Few scattered brown stuck on papules and plaques on the head, trunk and extremities Regular and symmetric brown macules and papules on the head, trunk and extremities Scattered reticulated light moraes macules in sun distribution Scattered small lepe red papules throughout Assessment and Plan: 1. Skin Neoplasm UNIVERSAL PROTOCOL / SAFETY CHECKLIST Procedure to be Performed: Shave biopsy of lesion Sign In: A Moment of CARE was completed. Personnel directly involved with the procedure wore the appropriate PPE (Personal Protective Equipment). Patient/Surrogate Stated/Verified: PATIENT VERIFIED(optional for EMERGENT procedures): Patient name, Date of , Relevant allergies, and The intended procedure Time Out Communication: Intended patient and procedure match the source documents. Consent documented and matches the intended procedure. Sign Out: SIGN OUT (optional for EMERGENT procedures): All specimen containers correctly labeled. Post-procedure follow-up management communicated and Plan of Care Visit completed when applicable. Photo taken: Yes SHAVE BIOPSY OF LESION TO ESTABLISH AND CONFIRM DIAGNOSIS: Site: left lower lip Rule out: milia Risks, benefits, alternatives and personnel required for shave biopsy reviewed with patient. Patient and provider agree as to site(s) to be biopsied. Patient verbalizes understanding and wishes to proceed.Site(s) prepped with alcohol and anesthetized with 1% lidocaine with epinephrine. Shave biopsy of lesion(s) performed to the level of the dermis/epidermis The following was sent for histologic evaluation: EBL: scant Hemostasis with aluminum chloride and direct pressure, and a bandage is applied Written and verbal wound care instructions provided to patient, understanding verbalized. 2. Lentigines Dicussed benign etiology - tretinoin (RETIN-A) 0.025 % topical cream; Apply pea-sized amount to entire face once nightly. Begin 3 times weekly and and gradually increase frequency to nightly as tolerated. 3. Multiple benign nevi, Lepe angiomas, Seborrheic Keratoses, Reassurance on benign nature of lesions and recommend routine self-examinations. Recommend observation and encouraged to notify office of changes. Sunscreen (SPF 30 or higher). Sun protective clothing can be used in lieu of sunscreen but must be worn the entire time you are exposed to the sun's rays The ABCDEs of melanoma were reviewed with the patient and the importance of routine self-examination of moles was emphasized. Should any areas change in size, shape or color, bleed or become tender, the patient will contact the office for evaluation sooner than their interval appointment. Patient verbalizes understanding and agrees with treatment plan. Follow up in 1 year and PRN or sooner if something concerning arises. The documentation for this note was completed by Jennifer Howard RN acting as scribe for Patti Dugan APRN.CNP. October 09, 2022 2:39 PM. I agree with the Chief Complaint, ROS, and Past Histories independently gathered by the clinical family support specialist and the remaining scribed note accurately describes my personal service to the patient. Patti Dugan APRN.CNP documented in this encounter [facility] 06-20-2022 Miscellaneous Notes AND CORRECT NAME VERIFIED BY PATIENT. Dr. Patricio's message given to Ms. Nation and she was able to repeat information back correctly. She will go at the end of this week for blood work. Luisa Giron RN June 20, 2022 9:40 AM Hortencia Love DO Can we please review with patient that labs are overall normal and not concerning She has a slightly elevated potassium and should have this lab repeated at some point this week or next to be sure it is normalizing. I have placed the lab for her Happy to discuss if she has questions Thank you Hortencia documented in this encounter [facility] 06-13-2022 Instructions Hortencia Love DO - 06/13/2022 11:39 AM EST Please get your labs done I will be happy to help you with mental health care transition in the spring Dr. Love documented in this encounter [facility] 06-13-2022 History of Presen t illness Narrative Images from the original note were not included. Medicine [place] Department of General Internal Medicine [facility] PATIENT NAME: Giovanna Nation PCP: Hortencia Love DO CC: Follow up mental health, foot pain/discoloration Subjective History of Present Illness: Giovanna Nation is a 61 year old year old female presenting for follow up Mental health Much better spot currently than from our [facility] Following with Dr. Sexton for mental health- on [place] Will be transitioning mental health providers soon Was out in the cold for her mothers without socks/stocking on Has noted some itchiness/tingling in her toes Improving Some redness at tips of toes Review of Systems: ROS: 10 point ROS performed, pertinent positives and negatives per HPI. Objective Patient s problem list, current medications, allergies, and relevant histories have been reviewed and updated in EPIC. See below for current medications. Medications: Current Outpatient Medications on File Prior to Visit Medication Sig doxepin capsule 10 mg Take 10 mg by mouth at bedtime as needed. mecobalamin (B12 ACTIVE ORAL) Take by mouth. atomoxetine (STRATTERA) 40 mg capsule Take by mouth. Cholecalciferol, Vitamin D3, 50 mcg (2,000 unit) cap Take 1 capsule by mouth once daily. No current facility-administered medications on file prior to visit. Medications reviewed in detail and updated PRN. Physical Exam: BP 138/82[simona BP avg[ Pulse 88 Wt 98 lb (44.5kg) SpO2 100% LMP 02/11/2006 GENERAL: WN WD female in NAD. Alert, oriented to person, place, time and situation. Co-operative and a good historian. HEENT: NC/AT, sclerae anicteric CARDIAC: RRR, nl S1, S2, no S3, S4 or murmur LUNGS: CTA bilaterally with good excursion and symmetric expansion, no adventitious sounds EXTREMITIES: no clubbing, cyanosis or edema, distal great toes with distal redness, capillary refill <5 sec, intact sensation NEURO: No focal neuro deficits SKIN: No rashes or apparent lesions Recent labs/Diagnostic studies: I have thoroughly reviewed this patients previous notes, encounters, labs, and results prior to this visit. Assessment and Plan Giovanna Nation is a 61 year old year old female who presents today for follow up. ASSESSMENT/PLAN: 1. Severe episode of recurrent major depressive disorder, without psychotic features (HCC) - ICD9: 296.33, ICD10: F33.2 (primary diagnosis) Pt following with psychiatry Continue current plan of care - VITAMIN D 25 HYDROXY - COMP METABOLIC PANEL - CBC + DIFF - SED RATE WESTERGREN - C-REACTIVE PROTEIN (CRP) 2. Skin lesion - ICD9: 709.9, ICD10: L98.9 3. Change of skin color - ICD9: 782.9, ICD10: R23.8 Concern for cold exposure- mild frostbite which occurred week ago Symptoms have improved yet color change still persistent- no signs of gangrene or other lack of distal perfusion Advised to keep toes warm and monitor for any changes- persistence or worsening of symptoms - VITAMIN D 25 HYDROXY - COMP METABOLIC PANEL - CBC + DIFF - SED RATE WESTERGREN - C-REACTIVE PROTEIN (CRP) 4. Screening cholesterol level - ICD9: V77.91, ICD10: Z13.220 - LIPID PANEL BASIC Discussed with patient the importance of continuity of care. I encouraged patient to schedule next appointment as noted in after visit summary. SIGNATURE: Hortencia Love DO Associate Staff General Internal Medicine PAGER: [phone] DATE of SERVICE: 06/13/22 TIME of SERVICE: 11:19 AM documented in this encounter [facility] 04-11-2022 History of Presen t illness Narrative Patient presents for COVID booster. Denies any problems at this time. Tolerated injection well. Meghann Yun LPN documented in this encounter [facility] 01-11-2022 History of Presen t illness Narrative Radiology Service Progress Note PATIENT NAME: Giovanna Nation DATE OF SERVICE: January 11, 2022 TIME: 10:36 AM PATIENT IDENTITY VERIFICATION COMPLETED USING TWO (2) IDENTIFIERS: Name and Date of confirmed by patient verbally. FALL SCREENING: Has the patient had 2 falls in the last year or 1 fall with injury or currently using an Ambulatory Assistive Device (Walker, Cane, Wheelchair, Crutches, etc.)? No PATIENT GENDER DATA: Female. status: : No status: NO. PATIENT RELEVANT IMPLANT DATA REVIEWED: Yes RADIOLOGY DEPARTMENT: General X-ray: Exam(s) Completed: Upper Extremity X-Ray(s): Wrist, right PERIPHERAL IV DATA: Not applicable SIGNED BY: RT Audie(R) January 11, 2022 10:36 AM documented in this encounter [facility] 01-11-2022 History of Presen t illness Narrative Patient presents with: Trauma: right ankle injury and wrist x 2 wweks HPI: Right ankle and wrist pain: Duration: Injured when trash can fell 2 weeks ago and she landed half in it. Location: Improving right sore knee, right wrist (volar), right ankle bump (anterior-lateral) Character: Aching, constant Radiation: Tingly 1st and second toes Aggravating: Not worse with movement Relieving: Pain relievers: Tylenol PAST MEDICAL HISTORY Diagnosis Date Attention deficit disorder without mention of hyperactivity Adult Closed fracture of distal end of left radius 08/21/2016 Excessive or frequent menstruation History of colonoscopy 12/2020 Myalgia and myositis, unspecified MEDICATIONS: atomoxetine (STRATTERA) 40 mg capsule Take by mouth. ketoconazole (NIZORAL) 2 % cream Apply a thin layer to affected area twice daily for 2 weeks, then once weekly for maintenance. Cholecalciferol, Vitamin D3, 50 mcg (2,000 unit) cap Take 1 capsule by mouth once daily. OTC NUTRITIONAL SUPPLEMENT [facility], once daily womensCopper 2 mg dailyFish Oil : Super Fisol, [address] ALLERGIES: ALLERGIES Allergen Reactions Flovent [Fluticason* Other: See Comments took breath away Penicillins Rash Prednisone Mental Status Change Depression VITALS: BP 130/80 Pulse 87 Temp 36.6 C (97.9 F) Resp 21 Wt 44.9 kg (98 lb 14.4 oz) LMP 02/11/2006 SpO2 99% BMI 16.98 kg/m PHYSICAL EXAM: GEN: pleasant, no acute distress, alert HEENT: PERRL, EOMI, MMM NECK: supple, HEART: regular rate, regular rhythm, no murmurs LUNGS: clear to auscultation, no wheezes or crackles, no increased WOB EXT: no clubbing, no cyanosis, no edema WRIST: Right. No erythema, edema, ecchymosis, or deformity. No pain with palpation of the medial epicondyle, lateral epicondyle or olecranon. No pain with flexion or extension. Discomfort with forced supination. No pain with medial or ulnar deviation or flexion. Discomfort with full extension. Tender radial carpal junction. Non-tender ulnar styloid. ANKLE: right . Swelling present over the anterior tibial tendon above the level of the malleolus. No erythema, ecchymosis, or deformity. Range of motion: inversion - painful, eversion - non-painful, anterior drawer- non-painful. non-painful to bear weight. normal gait. Palpation: Medial malleolus, lateral malleolus, posterior calcaneus mild discomfort with palpation. Dorsal proximal midfoot - non-painful, proximal 5th metatarsal non-painful ASSESSMENT/PLAN: 1. Acute wrist pain, right - ICD9: 719.43, ICD10: M25.531 (primary diagnosis) - XR WRIST INJURY 4V PA/LAT/OBL/SCAPH RIGHT -no acute fracture. First RETIREMENT joint arthritis. Continue supportive care for wrist sprain. 2. Acute right ankle pain - ICD9: 719.47, 338.19, ICD10: M25.571 Ankle contusion/strain. Low suspicion for fracture. Continue supportive care. Tapan Merchant MD documented in this encounter [facility] 11-29-2021 History of Presen t illness Narrative Patient presents for [employer]OV[employer] Games booster. Denies any problems at this time. Tolerated injection well. Meghann Yun LPN documented in this encounter [facility] 05-10-2021 Note HNO ID: [id number] Author: BILL Arevalo Service: Psychiatry Author Type: Youth Court Judge Type: Plan of Care Filed: 05/10/2021 1:35 PM Note Text: Attestation signed by Tianna Sherwood APRN.CNP at 05/11/2021 11:15 AM Tianna Sherwood APRN.[facility] INPATIENT INTERDISCIPLINARY TREATMENT PLAN UPDATE DATE INITIATED: 05/10/2021 1:34 PM Patient's Goal of Treatment: get mental clearance Active Hospital Problems MDD (major depressive disorder), recurrent episode, severe (HCC) Criteria for Discharge: Elimination/reduction of presenting behavior: Depression and SI Estimated length of stay: To be discharged home today Interdisciplinary Treatment Plan Date Initiated: 05/07/21 Time Initiated: 59 Patient Participation in Initial Treatment Plan: Yes Initial Treatment Plan Date: 05/07/21 Strengths/Assets: Receiving outpatient treatment;Stable living situation;Motivated for treatment Limitations: Not adherent with treatment Precautions indicated: Routine Precautions Individualized problems: Mood disorder Problem - Discharge Needs Date Initiated: 05/07/21 Time Initiated: 1000 Discharge Needs: Resolve acute symptoms through medication management Interventions - Nursing: Provide education to the patient and/or family about the disease process and management as appropriate daily and as needed Interventions - Social Work: Assess for appropriate level of care and initiate referral upon admission or as needed;Assess Social Determinants of Health upon admission or as needed;Collateral information as needed;Assist with identifying community/social supports daily or as needed;Coordination with family as needed;Coordination with outpatient providers as needed;Create safety plan as needed;Develop aftercare plan;Education (family or patient) as needed;Encourage group participation daily or as needed;Encourage medication compliance daily or as needed;Encourage milieu therapy daily or as needed;Psychoeducation (family or patient) as needed;Resolve acute symptoms by working with interdisciplinary team Interventions - Therapy: Develop and discuss leisure education plan;Help patient to identify people, places and things that support recovery and stabilization of mental health Target date: 05/10/21 Post discharge referrals: Crisis Hotline Number;Individual Counseling;Self-help Groups;Psychiatry Identify next level of care: Home with family Problem - Mood Disorder As evidenced by: Delusions;Paranoia/fearfulness;H elplessness;Hopelessness Date Initiated: 05/07/21 Time Initiated: 1000 Mood Disorder: Depression Short Term Goals: Patient will report decrease in suicidal ideation/self-harm behavior;Patient will identify alternative coping skills to deal with symptoms Target Date Short Term Goals: 05/10/21 Progress Towards Short Term Goals: Adequate for discharge Mink Rancher Goals: Patient/support system will verbalize intent to comply with medication and treatment after discharge Target Date Mink Rancher Goals: 05/10/21 Progress Towards [facility] Goals: Adequate for discharge Interventions - Nursing: Administer medications as indicated and monitor patient for effect daily;Provide education to the patient and/or family about the disease process and management as appropriate daily and as needed Interventions - Social Work: Assess for appropriate level of care and initiate referral upon admission or as needed;Assess Social Determinants of Health upon admission or as needed;Assist with identifying community/social supports daily or as needed;Collateral information as needed;Coordination with family as needed;Coordination with outpatient providers as needed;Create safety plan as needed;Education (family or patient) as needed;Encourage medication compliance daily or as needed;Encourage group participation daily or as needed;Encourage milieu therapy daily or as needed;Psychoeducation (family or patient) as needed Interventions - Therapy: Assist patient in accessing and recognizing positive experiences Staff in attendance and in agreement with this plan: Attending: Kaela Nurse: Yvonne Youth Court Judge: Zhao Recreational Therapy: Char This plan was reviewed with patient/family. Attending Psychiatrist: Kaela DOCUMENTED BY: BILL Arevalo PATIENT NAME: Giovanna Nation DATE: May 10, 2021 TIME: 1:34 PM [facility] 05-09-2021 Note HNO ID: [id number] Author: Tianna Sherwood APRN.DEVELOPMENT CONSULTANT Service: Psychiatry Author Type: Nurse Practitioner Type: Progress Notes Filed: 06/01/2021 3:31 PM Note Text: Attestation signed by Landon Villatoro MD at 06/14/2021 10:56 AM Staff Addendum: I have seen and [facility] the [facility] and have discussed the case and the management of this patient's care. I also have reviewed and agree with the assessment and plan as stated above and agree with all of its relevant components. Landon Villatoro MD PROGRESS NOTE BEHAVIORAL HEALTH SERVICE DATE: 05/09/2021 SERVICE TIME: 4:42 PM The Interdisciplinary team met and reviewed treatment goals and discharge planning. Subjective Met with the patient this morning. Patient is sitting by herself in the day area. Pleasant and cooperative. Discussed her reason for admission and her concerns over others not being more cautious about COVID. In good spirits today. States she feels she is doing better, thought feels that being hospitalized may be harming more than it is helping. Rapid speech. Does not appear anxious and denies any depression or anxiety at this time. Denies SI/HI. Denies AVH.Would prefer not to take any medication and is agreeable to therapy, such as EMDR. Discharge focused. States she has 2 appointments she has to take her mother to this weekend. . Objective PHYSICAL EXAM: BP 125/73 Pulse 80 Temp 37 ?C (98.6 ?F) Resp 16 Ht 160 cm (5' 3) Wt 44.9 kg (99 lb) LMP 02/11/2006 SpO2 100% BMI 17.54 kg/m? MENTAL STATUS EXAMINATION: Appearance: Casually dressed, thin, underweight Behavior: Overactive and Withdrawn Orientation: Person, Place, Time and Situation Speech/Language: Rapid Mood/Affect: bright Thought Form: Coherent Thought Content: Coherent Suicidal Ideations: No suicidal ideation, intent or plan. Homicidal Ideations: No homicidal ideation, intent or plan. Insight: fair Judgment: fair Memory/Cognition: Intact Psychomotor: Psychomotor activity was normal NEW PROBLEMS ON UNIT SINCE LAST ENCOUNTER: None Current Facility-Administered Medications Medication Dose Route Frequency - nicotine polacrilex 2 mg gum (NICORETTE) 2 mg ORAL q 2 H PRN - LORazepam 2 mg (ATIVAN) 2 mg ORAL q 4 H PRN Or - LORazepam 2 mg injection (ATIVAN) 2 mg INTRAMUSCULAR q 4 H PRN - haloperidol 5 mg tab(s) (HALDOL) 5 mg ORAL q 4 H PRN Or - haloperidol lactate 5 mg short-acting injection (HALDOL) 5 mg INTRAMUSCULAR q 4 H PRN - acetaminophen 650 mg tab(s) (TYLENOL) 650 mg ORAL q 6 H PRN - aluminum-magnesium hydroxide-simethicone 200-200-20 mg/5 mL 30 mL (MAALOX,MYLANTA,MAG-AL PLUS) 30 mL ORAL q 4 H PRN - magnesium hydroxide 400 mg/5 mL 30 mL (MOM) 30 mL ORAL DAILY PRN - doxepin 10 mg cap(s) (SINEquan) 10 mg ORAL AT BEDTIME DATA: Diagnostic tests reviewed for today's visit: Most recent labs Assessment/Plan DIAGNOSIS: 1. PRIMARY: Mood Disorder Major Depressive Disorder, Recurrent, Severe Without Psychotic Symptoms 2. REENA RISK ASSESSMENT: Suicide: Low Homicide: Low Deliberate Self-Harm: Low Aggression: Low Imminent Physical Self Impairment: low INFORMED CONSENT: Yes, completed with the Patient. Discussed the risks, benefits and alternatives to the medication(s) recommended. Consent was given. INTERVENTION: Biological: Doxepin 10 mg QHS. Pt declines any medications at this time Psychological: milieu Social: avoid isolation DISCHARGE PLANNING: possibly tomorrow SIGNATURE: Tianna Sherwood APRN.[facility] PATIENT NAME: Giovanna Nation DATE: May 09, 2021 TIME: Tianna Sherwood APRN.[facility] 05-08-2021 Note HNO ID: [id number] Author: Ilan Coronado MD Service: Psychiatry Author Type: Physician Type: Progress Notes Filed: 05/08/2021 11:40 AM Note Text: PROGRESS NOTE BEHAVIORAL HEALTH SERVICE DATE: 05/08/2021 SERVICE TIME: 11:38 AM The Interdisciplinary team met and reviewed treatment goals and discharge planning. Subjective Met with the patient this morning. Patient is sitting by herself in the day area. She declines to go to groups she feels it is unsafe for her health. Remains anxious seen pacing the unit. We discussed medication options at this time she declines anything other than the doxepin that she takes at night. She feels she is doing better, uses the example that she did not get anxious with a roommate. Nursing does report that the patient did sleep most of the night. Objective PHYSICAL EXAM: BP 130/78 Pulse 75 Temp 36.8 ?C (98.2 ?F) (Oral) Resp 18 Ht 160 cm (5' 3) Wt 44.9 kg (99 lb) LMP 02/11/2006 SpO2 97% BMI 17.54 kg/m? MENTAL STATUS EXAMINATION: Appearance: Casually dressed Behavior: Overactive and Withdrawn Orientation: Person, Place, Time and Situation Speech/Language: Rapid Mood/Affect: Anxious Thought Form: Coherent Thought Content: Coherent Suicidal Ideations: No suicidal ideation, intent or plan. Homicidal Ideations: No homicidal ideation, intent or plan. Insight: Poor Judgment: Grossly impaired Memory/Cognition: Intact Psychomotor: Psychomotor activity was normal NEW PROBLEMS ON UNIT SINCE LAST ENCOUNTER: None Current Facility-Administered Medications Medication Dose Route Frequency - nicotine polacrilex 2 mg gum (NICORETTE) 2 mg ORAL q 2 H PRN - LORazepam 2 mg (ATIVAN) 2 mg ORAL q 4 H PRN Or - LORazepam 2 mg injection (ATIVAN) 2 mg INTRAMUSCULAR q 4 H PRN - haloperidol 5 mg tab(s) (HALDOL) 5 mg ORAL q 4 H PRN Or - haloperidol lactate 5 mg short-acting injection (HALDOL) 5 mg INTRAMUSCULAR q 4 H PRN - acetaminophen 650 mg tab(s) (TYLENOL) 650 mg ORAL q 6 H PRN - aluminum-magnesium hydroxide-simethicone 200-200-20 mg/5 mL 30 mL (MAALOX,MYLANTA,MAG-AL PLUS) 30 mL ORAL q 4 H PRN - magnesium hydroxide 400 mg/5 mL 30 mL (MOM) 30 mL ORAL DAILY PRN - doxepin 10 mg cap(s) (SINEquan) 10 mg ORAL AT BEDTIME DATA: Diagnostic tests reviewed for today's visit: Most recent labs Assessment/Plan DIAGNOSIS: 1. PRIMARY: Mood Disorder Major Depressive Disorder, Recurrent, Severe Without Psychotic Symptoms 2. REENA 3. 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 Discussed the risks, benefits and alternatives to the medication(s) recommended. Consent was given. INTERVENTION: Biological: Doxepin 10 mg QHS. Pt declines any medications at this time Psychological: milieu Social: avoid isolation DISCHARGE PLANNING: To be determined SIGNATURE: Ilan Coronado MD PATIENT NAME: Giovanna Nation DATE: May 08, 2021 TIME: 11:36 AM [facility] 08-21-2016 History of Past i llness Narrative Problem Noted Date Resolved Date Closed fracture of distal end of left radius 12/201607/02/2018 Depression with anxiety 11/19/2015 03/17/20 21 Overview: Seeing Dr Travis, on lexapro Sister suicide Son opoid addiction Tobacco use 10/20/2013 01/07/2020 documented as of this encounter (statuses as of 11/29/2021) [facility]2017 History of Past illness Narrative* Problem Noted Date Resolved Date Closed fracture of distal end of left radius 12/201607/02/2018 Depression with anxiety 11/19/2015 03/17/20 21 Overview: Seeing Dr Travis, on lexapro Sister suicide Son opoid addiction Tobacco use 10/20/2013 01/07/2020 documented as of this encounter (statuses as of 01/11/2022) [facility] History of Past illness Narrative* Problem Noted Date Resolved Date Closed fracture of distal end of left radius 12/201607/02/2018 Depression with anxiety 11/19/2015 03/17/20 21 Overview: Seeing Dr Travis, on lexapro Sister suicide Son opoid addiction Tobacco use 10/20/2013 01/07/2020 documented as of this encounter (statuses as of 04/10/2022) [facility] History of Past illness Narrative* Problem Noted Date Resolved Date Closed fracture of distal end of left radius 12/201607/02/2018 Depression with anxiety 11/19/2015 03/17/20 21 Overview: Seeing Dr Travis, on lexapro Sister suicide Son opoid addiction Tobacco use 10/20/2013 01/07/2020 documented as of this encounter (statuses as of 04/11/2022) [facility] History of Past illness Narrative* Problem Noted Date Resolved Date Closed fracture of distal end of left radius 12/201607/02/2018 Depression with anxiety 11/19/2015 03/17/20 21 Overview: Seeing Dr Travis, on lexapro Sister suicide Son opoid addiction Tobacco use 10/20/2013 01/07/2020 documented as of this encounter (statuses as of 06/15/2022) [facility] History of Past illness Narrative* Problem Noted Date Resolved Date Closed fracture of distal end of left radius 12/201607/02/2018 Depression with anxiety 11/19/2015 03/17/20 21 Overview: Seeing Dr Travis, on lexapro Sister suicide Son opoid addiction Tobacco use 10/20/2013 01/07/2020 documented as of this encounter (statuses as of 06/20/2022) [facility] History of Past illness Narrative* Problem Noted Date Resolved Date Closed fracture of distal end of left radius 12/201607/02/2018 Depression with anxiety 11/19/2015 03/17/20 21 Overview: Seeing Dr Travis, on lexapro Sister suicide Son opoid addiction Tobacco use 10/20/2013 01/07/2020 documented as of this encounter (statuses as of 10/09/2022) [facility] History of Past illness Narrative* Problem Noted Date Resolved Date Closed fracture of distal end of left radius 12/201607/02/2018 Depression with anxiety 11/19/2015 03/17/20 21 Overview: Seeing Dr Travis, on lexapro Sister suicide Son opoid addiction Tobacco use 10/20/2013 01/07/2020 documented as of this encounter (statuses as of 10/10/2022) [facility] History of Past illness Narrative* Problem Noted Date Resolved Date Closed fracture of distal end of left radius 12/201607/02/2018 Depression with anxiety 11/19/2015 03/17/20 21 Overview: Seeing Dr Travis, on lexapro Sister suicide Son opoid addiction Tobacco use 10/20/2013 01/07/2020 documented as of this encounter (statuses as of 10/25/2022) [facility] History of Past illness Narrative* Problem Noted Date Resolved Date Closed fracture of distal end of left radius 12/201607/02/2018 Depression with anxiety 11/19/2015 03/17/20 21 Overview: Seeing Dr Travis, on lexapro Sister suicide Son opoid addiction Tobacco use 10/20/2013 01/07/2020 documented as of this encounter (statuses as of 01/09/2023) [facility] History of Past illness Narrative* Problem Noted Date Diagnosed Date Resolved Date Closed fracture of distal end of left radius 7 07/02/2018 Depression with anxiety 11/19/2015 090 08/2020 Overview: Seeing Dr Travis, on lexapro Sister suicide Son opoid addiction Tobacco use 10/20/2013 01/07/2020 documented as of this encounter (statuses as of 03/12/2023) [facility] History of Past illness Narrative* Problem Noted Date Diagnosed Date Resolved Date Closed fracture of distal end of left radius 7 07/02/2018 Depression with anxiety 11/19/2015 09/0 08/2020 Overview: Seeing Dr Travis, on lexapro Sister suicide Son opoid addiction Tobacco use 10/20/2013 01/07/2020 documented as of this encounter (statuses as of 04/13/2023) [facility] History of Past illness Narrative* Problem Noted Date Diagnosed Date Resolved Date Closed fracture of distal end of left radius 7 07/02/2018 Depression with anxiety 11/19/2015 09/0 08/2020 Overview: Seeing Dr Travis, on lexapro Sister suicide Son opoid addiction Tobacco use 10/20/2013 01/07/2020 documented as of this encounter (statuses as of 04/17/2023) [facility] History of Past illness Narrative* Problem Noted Date Diagnosed Date Resolved Date Closed fracture of distal end of left radius 7 07/02/2018 Depression with anxiety 11/19/201508/2020 Overview: Seeing Dr Travis, on lexapro Sister suicide Son opoid addiction Tobacco use 10/20/2013 01/07/2020 documented as of this encounter (statuses as of 05/08/2023) [facility] History of Past illness Narrative* Problem Noted Date Diagnosed Date Resolved Date Closed fracture of distal end of left radius 7 07/02/2018 Depression with anxiety 11/19/20150 08/2020 Overview: Seeing Dr Travis, on lexapro Sister suicide Son opoid addiction Tobacco use 10/20/2013 01/07/2020 documented as of this encounter (statuses as of 05/12/2023) [facility] History of Past illness Narrative* Problem Noted Date Diagnosed Date Resolved Date Closed fracture of distal end of left radius 7 07/02/2018 Depression with anxiety 11/19/20150 08/2020 Overview: Seeing Dr Travis, on lexapro Sister suicide Son opoid addiction Tobacco use 10/20/2013 01/07/2020 documented as of this encounter (statuses as of 05/23/2023) [facility] History of Past illness Narrative* Problem Noted Date Diagnosed Date Resolved Date Closed fracture of distal end of left radius 7 07/02/2018 Depression with anxiety 11/19/20150 08/2020 Overview: Seeing Dr Travis, on lexapro Sister suicide Son opoid addiction Tobacco use 10/20/2013 01/07/2020 documented as of this encounter (statuses as of 05/27/2023) [facility] History of Past illness Narrative* Problem Noted Date Diagnosed Date Resolved Date Closed fracture of distal end of left radius 7 07/02/2018 Depression with anxiety 11/19/20150 08/2020 Overview: Seeing Dr Travis, on lexapro Sister suicide Son opoid addiction Tobacco use 10/20/2013 01/07/2020 documented as of this encounter (statuses as of 06/06/2023) [facility] History of Past illness Narrative* Problem Noted Date Diagnosed Date Resolved Date Closed fracture of distal end of left radius 7 07/02/2018 Depression with anxiety 11/19/20150 08/2020 Overview: Seeing Dr Travis, on lexapro Sister suicide Son opoid addiction Tobacco use 10/20/2013 01/07/2020 documented as of this encounter (statuses as of 06/09/2023) [facility] History of Past illness Narrative* Problem Noted Date Diagnosed Date Resolved Date Closed fracture of distal end of left radius 7 07/02/2018 Depression with anxiety 11/19/20150 08/2020 Overview: Seeing Dr Travis, on lexapro Sister suicide Son opoid addiction Tobacco use 10/20/2013 01/07/2020 documented as of this encounter (statuses as of 10/16/2023) [facility] Diagnosis Need for vaccination- Primary Need for prophylactic vaccination and inoculation against unspecified single disease [facility] Acute wrist pain, right- Primary Acute right ankle pain [facility] Diagnosis Encounter for screening [facility] for [facility] Diagnosis Need for vaccination- Primary Need for prophylactic vaccination and inoculation against unspecified single disease [facility] Diagnosis Severe episode of recurrent major depressive disorder, without psychotic features (HCC)- Primary Skin lesion Unspecified disorder of skin and subcutaneous tissue Change of skin color Screening cholesterol level Screening for lipoid disorders [facility]* Diagnosis Multiple benign nevi- Primary Benign neoplasm of skin, site unspecified Seborrheic keratosis Other seborrheic keratosis Neoplasm of unspecified behavior of bone, soft tissue, and skin Lentigines Other dyschromia Angioma of skin Hemangioma of skin and subcutaneous tissue [facility] Diagnosis Elevated BP without diagnosis of hypertension- Primary Screening for colon cancer Special screening for malignant neoplasms, colon Attention deficit hyperactivity disorder (ADHD), unspecified ADHD type [facility] Diagnosis Encounter for screening mammogram for breast cancer [facility] Diagnosis Need for vaccination- Primary Need for prophylactic vaccination and inoculation against unspecified single disease [facility] Diagnosis Encounter for immunization- Primary Need for other specified prophylactic vaccination against single bacterial disease Severe episode of recurrent major depressive disorder, without psychotic features (HCC) Unspecified essential hypertension Therapeutic drug monitoring Encounter for therapeutic drug monitoring Hyperkalemia Hyperpotassemia [facility] Diagnosis Acute cough- Primary Weight loss Loss of weight Dry scalp Acquired keratoderma [facility] Diagnosis CRP elevated- Primary Elevated C-reactive protein (CRP) Weight loss Loss of weight Vitamin D deficiency Unspecified vitamin D deficiency [facility] Diagnosis Weight loss Loss of weight Acute cough [facility] Diagnosis Facial paresthesia- Primary Benign essential HTN Essential hypertension, benign [facility]* Diagnosis Skin lesion- Primary Unspecified disorder of skin and subcutaneous tissue [facility] Diagnosis Impingement of right shoulder- Primary [facility] Diagnosis Acute pain of right shoulder- Primary Impingement of right shoulder [facility] Diagnosis Skin exam, screening for cancer- Primary Screening for malignant neoplasm of the skin Lepe angioma Nevus, non-neoplastic Lentigines Other dyschromia Multiple benign nevi Benign neoplasm of skin, site unspecified Seborrheic keratoses Other seborrheic keratosis Dysesthesia of scalp Rash and nonspecific skin eruption Rash and other nonspecific skin eruption Actinic keratoses Actinic keratosis [facility] Diagnosis Acute pain of right shoulder- Primary [facility] Diagnosis Acute pain of right shoulder- Primary [facility]* Diagnosis Facial paresthesia- Primary New onset of headaches after age 50 Headache Eye pain, left Neuralgic facial pain Other facial nerve disorders Severe episode of recurrent major depressive disorder, without psychotic features (HCC) Attention deficit hyperactivity disorder (ADHD), unspecified ADHD type Primary hypertension Unspecified essential hypertension [facility] Diagnosis Otalgia, bilateral- Primary Facial paresthesia Headaches Sore throat Acute pharyngitis [facility] Diagnosis Left facial numbness- Primary Disturbance of skin sensation New daily persistent headache Vitamin B12 deficiency Other B-complex deficiencies Severe episode of recurrent major depressive disorder, without psychotic features (HCC) Attention deficit hyperactivity disorder (ADHD), unspecified ADHD type Primary hypertension Unspecified essential hypertension [facility]* Diagnosis Acute pain of right shoulder- Primary [facility] Diagnosis Cervicogenic headache- Primary Headache Left facial numbness Disturbance of skin sensation [facility] Diagnosis Acute pain of right shoulder- Primary [facility] Diagnosis Acute pain of right shoulder- Primary [facility]* Diagnosis Myofascial pain syndrome, cervical- Primary Mylagia and myositis, unspecified Spasm of cervical paraspinous muscle Spasm of muscle [facility]* Diagnosis Pain in left wrist- Primary Pain in joint, forearm Chronic left shoulder pain Pain in joint, shoulder region [facility] Diagnosis Dry eye syndrome of bilateral lacrimal glands- Primary Tear film insufficiency, unspecified Meibomian gland dysfunction (MGD) of upper and lower lids of both eyes Eye pain, left [facility]* Diagnosis Chronic daily headache- Primary Headache Neck pain Cervicalgia [facility] Diagnosis Pain in left wrist- Primary Pain in joint, forearm Chronic left shoulder pain Pain in joint, shoulder region [facility]* Diagnosis Pain in left wrist- Primary Pain in joint, forearm Chronic left shoulder pain Pain in joint, shoulder region [facility]* Diagnosis Pain in left wrist- Primary Pain in joint, forearm Chronic left shoulder pain Pain in joint, shoulder region [facility] Diagnosis [facility], right [facility] Diagnosis Pain in left wrist- Primary Pain in joint, forearm Chronic left shoulder pain Pain in joint, shoulder region [facility]* Diagnosis Dry eye syndrome of bilateral lacrimal glands- Primary Tear film insufficiency, unspecified Meibomian gland dysfunction (MGD) of upper and lower lids of both eyes Eye pain, left documented [facility]* Diagnosis Encounter for screening mammogram for breast cancer [facility] Diagnosis Chronic daily headache- Primary Headache [facility] Diagnosis Chilblains, initial encounter- Primary [facility]* Diagnosis Raynaud disease without gangrene- Primary Hypokalemia Hypopotassemia documented [facility] Diagnosis Primary hypertension- Primary Unspecified essential hypertension Raynaud's disease without gangrene [facility] Diagnosis Raynaud's disease without gangrene- Primary Primary hypertension Unspecified essential hypertension Pain in both feet Pain in limb [facility]* Diagnosis Raynaud's disease without gangrene- Primary [facility] Diagnosis Primary hypertension- Primary Unspecified essential hypertension Raynaud's disease without gangrene [facility]* Diagnosis Myalgias- Primary Cold intolerance Other general symptoms [facility] Diagnosis Myalgias [facility]* Diagnosis Bacterial sinusitis- Primary Unspecified sinusitis (chronic) Acute otitis media, left Unspecified otitis media Oral thrush Candidiasis of mouth [facility]* Diagnosis Porokeratosis- Primary Other specified congenital anomaly of skin Raynaud's disease without gangrene [facility]* Diagnosis Tingling in extremities- Primary Disturbance of skin sensation Anxiety about health [facility] Diagnosis Lumbar spondylolysis- Primary Acquired spondylolisthesis Myalgias Venous congestion Cervical stenosis of spinal canal Spinal stenosis in cervical region [facility]* Diagnosis Black stools- Primary Nonspecific abnormal finding in stool contents [facility] Diagnosis Cervical stenosis of spinal canal- Primary Spinal stenosis in cervical region Lumbar spondylolysis Acquired spondylolisthesis Left hip pain Pain in joint, pelvic region and thigh documented in this encounter [facility]* Diagnosis Right hip pain Pain in joint, pelvic region and thigh [facility] Diagnosis Primary hypertension Unspecified essential hypertension [facility] Diagnosis Right hip pain- Primary Pain in joint, pelvic region and thigh Vertigo Dizziness and giddiness Tendinopathy of right gluteus medius documented in this encounter [facility] note* Diagnosis Periorbital ecchymosis of right eye, initial encounter- Primary documented in this encounter [facility] Work Phone: Hospital Discharge instructions* Attachments The following attachments cannot be sent through Care Everywhere. * Black eye ED [facility] (Polish) [facility] Reason for referral (narrative)* Diagnostic Procedure Only (Urgent) - Closed Specialty Diagnoses / Procedures Referred By Criselda mims Referred To Contact XR IMAGING Diagnoses Acute wrist pain, right Procedures XR WRIST INJURY 4V PA/LAT/OBL/SCAPH RIGHT RADEX WRIST COMPLETE MINIMUM 3 VIEWS Tapan Merchant MD [address] [place] [address] Xr Imaging Referral ID Status Reason Start Date Expiration Date V isits Requested Visits Authorized [id number] Closed Auto-Generate d Referral 01/11/2022 02/10/2023 1 1 [facility] (narrative)* Diagnostic Procedure Only (Routine) - Pending Review Specialty Diagnoses / Procedures Referred By Criselda mims Referred To Contact BR IMAGING Diagnoses Encounter for screening mammogram for breast cancer Procedures LACHELLE SCREENING SCREENING MAMMOGRAPHY BI 2-VIEW BREAST INC CAD Hortencia Love DO [address] [place] [address] [facility] Imaging [address] [place] [phone] Referral ID Status Reason Start Date Expiration Date Visits Requested Visits Authorized [id number] Pending Review Auto-Generat ed Referral 04/05/2022 05/05/2023 1 1 [facility] for referral (narrative)* Diagnostic Procedure Only (Routine) - Pending Review Specialty Diagnoses / Procedures Referred By Contac t Referred To Contact BR IMAGING Diagnoses Encounter for screening mammogram for breast cancer Procedures LACHELLE SCREENING SCREENING MAMMOGRAPHY BI 2-VIEW BREAST INC Hortencia Conner DO [address] [place] [id number] [facility] [address] [place] [phone] Referral ID Status Reason Start Date Expiration Date Visits Requested Visits Authorized [id number] Pending Review Auto-Generat ed Referral 03/07/2023 04/05/2024 1 1 [facility] for referral (narrative)* Diagnostic Procedure Only (Routine) - Pending Review Specialty Diagnoses / Procedures Referred By Contac t Referred To Contact BR IMAGING Diagnoses Weight loss Procedures LACHELLE SCREENING SCREENING MAMMOGRAPHY BI 2-VIEW BREAST INC Hortencia Conner DO [address] [place] [address] [facility] Imaging [address] [place] [address] Referral ID Status Reason Start Date Expiration Date Visits Requested Visits Authorized [id number] Pending Review Auto-Generat ed Referral 05/21/2023 06/19/2024 1 1 [facility] for referral (narrative)* Diagnostic Procedure Only (Urgent) - Closed Specialty Diagnoses / Procedures Referred By Contac t Referred To Contact XR IMAGING Diagnoses Acute wrist pain, right Procedures XR WRIST INJURY 4V PA/LAT/OBL/SCAPH RIGHT RADEX WRIST COMPLETE MINIMUM 3 VIEWS Tapan Merchant MD [address] [place] [address] [place] [address] Referral ID Status Reason Start Date Expiration Date V isits Requested Visits Authorized [id number] Closed Auto-Generate d Referral 01/11/2022 02/10/2023 1 1 [facility] for referral (narrative)* Diagnostic Procedure Only (Routine) - New Request Specialty Diagnoses / Procedures Referred By Criselda t Referred To Contact BR IMAGING Diagnoses Encounter for screening mammogram for breast cancer Procedures LACHELLE SCREENING W ABRAHAM SCREENING DIGITAL BREAST TOMOSYNTHESIS BI SCREENING MAMMOGRAPHY BI 2-VIEW BREAST INC CAD Michael Flynn MD [address] [place] [address] Br Imaging [address] [place] [address] Referral ID Status Reason Start Date Expiration Date Visits Requested Visits Authorized [id number] New Request Auto-Generat ed Referral 04/23/2024 05/23/2025 1 1 [facility] for referral (narrative)* Outpatient Procedure (Routine) - New Request Specialty Diagnoses / Procedures Referred By Criselda mims Referred To Contact [facility] Diagnoses Pain in both feet Procedures PVR ANK PRESS DEYA VAS LAB NON-INVAS PHYSIOLOGIC STD EXTREMITY ART 2 LEVEL Michael Flynn MD [address] [place] [address] [facility] [place] [address] [place] [address] Referral ID Status Reason Start Date Expiration Date Visits Requested Visits Authorized [id number] New Request Auto-Generat ed Referral 08/08/2024 08/08/2025 1 1 [facility] for visit Narrative* Diagnostic Procedure Only (Urgent) - Closed Specialty Diagnoses / Procedures Referred By Criselda mims Referred To Contact XR IMAGING Diagnoses Acute wrist pain, right Procedures XR WRIST INJURY 4V PA/LAT/OBL/SCAPH RIGHT RADEX WRIST COMPLETE MINIMUM 3 VIEWS Tapan Merchant MD [address] [place] [address] [place] [address] Referral ID Status Reason Start Date Expiration Date V isits Requested Visits Authorized [id number] Closed Auto-Generate d Referral 01/11/2022 02/10/2023 1 1 [facility] Diagnostic Procedure Only (Routine) - Closed Specialty Diagnoses / Procedures Referred By Contac t Referred To Contact XR IMAGING Diagnoses Right hip pain Procedures XR HIP GENERAL 3V PELV/AP/LAT RIGHT RADEX HIP UNILATERAL WITH PELVIS 2-3 VIEWS Leonarda Boykin MD [address] [place] [phone] Phone: tel: fax: [place] [address] Referral ID Status Reason Start Date Expiration Date V isits Requested Visits Authorized [id number] Closed Auto-Generate d Referral 02/04/2025 03/06/2026 1 1 [facility] Summary Purpose Family History No Family History Records FoundNo Family History Records FoundNo Family History Records FoundNo Family History Records FoundNo Family History Records Found Advance Directives No Advanced Directives Records FoundDocuments on File Type Date Recorded 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 Advance Directive(s) 05/07/2021 5:20 AM Advance Directive(s) 05/06/2021 7:19 PM Advance Directive(s) 12/25/2020 3:00 PM Advance Directive(s) 04/19/2019 11:06 AM Advance Directive(s) 08/20/2018 6:59 AM Advance Directive(s) 12/24/2016 2:52 PM Documents on File Type Date Recorded 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 Advance Directive(s) 05/07/2021 5:20 AM Advance Directive(s) 05/06/2021 7:19 PM Advance Directive(s) 12/25/2020 3:00 PM Advance Directive(s) 04/19/2019 11:06 AM Advance Directive(s) 08/20/2018 6:59 AM Advance Directive(s) 12/24/2016 2:52 PM Date Activated Date Inactivated Comments 01/14/2024 12:52 PM 01/15/2024 3:05 PM Question Answer Comments DNR Order Discussed With: Patient Date Activated Date Inactivated Comments 01/14/2024 12:52 PM 01/15/2024 3:05 PM Question Answer Comments DNR Order Discussed With: Patient Reason for Referral Specialty Diagnoses / Procedures Referred By Contac t Referred To Contact Ent - Otolaryngology Diagnoses Facial paresthesia Procedures CONSULT TO ENT OFFICE/OUTPATIENT NEW [facility] MDM 60 MINUTES Nhung Saavedra PLASTERER ROUGH.DEVELOPMENT CONSULTANT [address] [facility] [address] [place] [address] Referral ID Status Reason Start Date Expiration Date Visits Requested Visits Authorized [id number] Authorized PCP Requested Referral 10/15/2023 10/14/2024 1 1 Specialty Diagnoses / Procedures Referred By Contac t Referred To Contact Dermatology Diagnoses Skin lesion Procedures CONSULT TO DERMATOLOGY Daniel Whatley APRN.DEVELOPMENT CONSULTANT [address] [place] [address] Referral ID Status Reason Start Date Expiration Date Visits Requested Visits Authorized [id number] Ref Not Required PCP Requested Referral 11/13/2023 11/12/2024 1 1 Specialty Diagnoses / Procedures Referred By Contac t Referred To Contact [facility] Diagnoses Impingement of right shoulder Procedures CONSULT TO PHYSICAL THERAPY PHYSICAL THERAPY EVALUATION HIGH COMPLEX 45 MINS Juliane Denise PA-C [address] [place] [address] [facility] [address] [address] Referral ID Status Reason Start Date Expiration Date V isits Requested Visits Authorized [id number] Closed Auto-Generate d Referral 07/16/2023 07/15/2024 1 1 Specialty Diagnoses / Procedures Referred By Contac t Referred To Contact [facility] Diagnoses Impingement of right shoulder Acute pain of right shoulder Procedures PT REHAB FOLLOW UP ORDER THERAPEUTIC EXERCISES RE, [place] [address] [place] [address] [place] [address] [facility] [place] [address] [place] [address] Referral ID Status Reason Start Date Expiration Date Visits Requested Visits Authorized [id number] Pending Review PCP Requested Referral Auto-Generate d Referral 11/20/2023 02/18/2024 1 1 Specialty Diagnoses / Procedures Referred By Contac t Referred To Contact MR IMAGING Diagnoses Facial paresthesia New onset of headaches after age 49 Eye pain, left Neuralgic facial pain Procedures MRI BRAIN WO/W IVCON MRI BRAIN BRAIN STEM W/O W/CONTRAST MATERIAL Hortencia Love DO [address] [place] [address] Mr Imaging [facility] Referral ID Status Reason Start Date Expiration Date Visits Requested Visits Authorized [id number] Pending Review Auto-Generat ed Referral 12/17/2023 01/15/2025 1 1 Specialty Diagnoses / Procedures Referred By Contac t Referred To Contact [facility] Diagnoses Acute pain of right shoulder Procedures PT REHAB FOLLOW UP ORDER THERAPEUTIC EXERCISES RE, EA 15 MIN. Pierre Montgomery, PT [address] [place] [address] [facility] [place] [phone] Referral ID Status Reason Start Date Expiration Date Visits Requested Visits Authorized [id number] Pending Review PCP Requested Referral Auto-Generate d Referral 12/31/2023 03/30/2024 1 1 Specialty Diagnoses / Procedures Referred By Contac t Referred To Contact [facility] Diagnoses Myofascial pain syndrome, cervical Procedures CONSULT TO PHYSICAL THERAPY PHYSICAL THERAPY EVALUATION HIGH COMPLEX 45 MINS Rajeev Hodge MD [address] [place] [address]#5-1 [place] [address] [facility] [address] [address] Referral ID Status Reason Start Date Expiration Date Visits Requested Visits Authorized [id number] Pending Review Auto-Generat ed Referral 02/18/2024 02/17/2025 1 1 Specialty Diagnoses / Procedures Referred By Contac t Referred To Contact [facility] Diagnoses Pain in left wrist Chronic left shoulder pain Procedures PT REHAB FOLLOW UP ORDER THERAPEUTIC EXERCISES RE, EA 15 MIN. Rajeev Hodge MD [address] [place] [address]#5-[address] [place] [phone] [facility] [address] [address] Referral ID Status Reason Start Date Expiration Date Visits Requested Visits Authorized [id number] New Request PCP Requested Referral Auto-Generate d Referral 02/19/2024 05/19/2024 1 1 Specialty Diagnoses / Procedures Referred By Contac t Referred To Contact Starr Haines MD [address] [place], [place] [phone] Referral ID Status Reason Start Date Expiration Date V isits Requested Visits Authorized [id number] Pending Review 1 1 Specialty Diagnoses / Procedures Referred By Contac t Referred To Contact [facility] Diagnoses Chronic daily headache Neck pain Procedures CONSULT TO PHYSICAL THERAPY PHYSICAL THERAPY EVALUATION HIGH COMPLEX 45 MINS Carlotta Archer MD [address] [place] [address] [facility] [place] [phone] Referral ID Status Reason Start Date Expiration Date Visits Requested Visits Authorized [id number] Pending Review Auto-Generat ed Referral 03/05/2024 03/05/2025 1 1 Specialty Diagnoses / Procedures Referred By Contac t Referred To Contact Vascular Medicine Diagnoses Raynaud's disease without gangrene Procedures CONSULT TO VASCULAR MEDICINE OFFICE/OUTPATIENT NEW HIGH MDM 60 MINUTES Michael Flynn MD [address] [place] [address] Referral ID Status Reason Start Date Expiration Date Visits Requested Visits Authorized [id number] Authorized PCP Requested Referral 08/16/2024 08/16/2025 1 1 Additional Source Comments INFORMATION SOURCE (unrecogn ized section and content) DATE CREATED AUTHOR 07/06/2021 Dilan Lilly al DATE CREATED AUTHOR AUTHOR'S ORGANIZ ATION 08/27/2024 [facility] DATE CREATED AUTHOR AUTHOR'S ORGANIZ ATION 02/08/2025 [facility] DATE CREATED AUTHOR AUTHOR'S ORGANIZ ATION 03/12/2025 [facility] DATE CREATED AUTHOR AUTHOR'S ORGANIZ ATVANIA 03/13/2025 [facility] Source Comments (unrecognize d section and content) In the event this informatio n is protected by the Federal Confidentiality of Alcohol and Drug Abuse Patient Records regulations: The Federal rules restrict any use of the information to criminally investigate or prosecute any alcohol or drug abuse patient.[facility] the event this information is protected by the Federal Confidentiality of Alcohol and Drug Abuse Patient Records regulations: The Federal rules restrict any use of the information to criminally investigate or prosecute any alcohol or drug abuse patient.[facility] Center[facility] the event this information is protected by the Federal Confidentiality of Alcohol and Drug Abuse Patient Records regulations: The Federal rules restrict any use of the information to criminally investigate or prosecute any alcohol or drug abuse patient.[facility] CenterIn the event this information is protected by the Federal Confidentiality of Alcohol and Drug Abuse Patient Records regulations: The Federal rules restrict any use of the information to criminally investigate or prosecute any alcohol or drug abuse patient.[facility] CenterIn the event this information is protected by the Federal Confidentiality of Alcohol and Drug Abuse Patient Records regulations: The Federal rules restrict any use of the information to criminally investigate or prosecute any alcohol or drug abuse patient.[facility] CenterIn the event this information is protected by the Federal Confidentiality of Alcohol and Drug Abuse Patient Records regulations: The Federal rules restrict any use of the information to criminally investigate or prosecute any alcohol or drug abuse patient.[facility] CenterIn the event this information is protected by the Federal Confidentiality of Alcohol and Drug Abuse Patient Records regulations: The Federal rules restrict any use of the information to criminally investigate or prosecute any alcohol or drug abuse patient.[facility] CenterIn the event this information is protected by the Federal Confidentiality of Alcohol and Drug Abuse Patient Records regulations: The Federal rules restrict any use of the information to criminally investigate or prosecute any alcohol or drug abuse patient.[facility] CenterIn the event this information is protected by the Federal Confidentiality of Alcohol and Drug Abuse Patient Records regulations: The Federal rules restrict any use of the information to criminally investigate or prosecute any alcohol or drug abuse patient.[facility] CenterIn the event this information is protected by the Federal Confidentiality of Alcohol and Drug Abuse Patient Records regulations: The Federal rules restrict any use of the information to criminally investigate or prosecute any alcohol or drug abuse patient.[facility] CenterIn the event this information is protected by the Federal Confidentiality of Alcohol and Drug Abuse Patient Records regulations: The Federal rules restrict any use of the information to criminally investigate or prosecute any alcohol or drug abuse patient.[facility] CenterIn the event this information is protected by the Federal Confidentiality of Alcohol and Drug Abuse Patient Records regulations: The Federal rules restrict any use of the information to criminally investigate or prosecute any alcohol or drug abuse patient.[facility] CenterIn the event this information is protected by the Federal Confidentiality of Alcohol and Drug Abuse Patient Records regulations: The Federal rules restrict any use of the information to criminally investigate or prosecute any alcohol or drug abuse patient.[facility] CenterIn the event this information is protected by the Federal Confidentiality of Alcohol and Drug Abuse Patient Records regulations: The Federal rules restrict any use of the information to criminally investigate or prosecute any alcohol or drug abuse patient.[facility] CenterIn the event this information is protected by the Federal Confidentiality of Alcohol and Drug Abuse Patient Records regulations: The Federal rules restrict any use of the information to criminally investigate or prosecute any alcohol or drug abuse patient.[facility] CenterIn the event this information is protected by the Federal Confidentiality of Alcohol and Drug Abuse Patient Records regulations: The Federal rules restrict any use of the information to criminally investigate or prosecute any alcohol or drug abuse patient.[facility] CenterIn the event this information is protected by the Federal Confidentiality of Alcohol and Drug Abuse Patient Records regulations: The Federal rules restrict any use of the information to criminally investigate or prosecute any alcohol or drug abuse patient.[facility] CenterIn the event this information is protected by the Federal Confidentiality of Alcohol and Drug Abuse Patient Records regulations: The Federal rules restrict any use of the information to criminally investigate or prosecute any alcohol or drug abuse patient.[facility] CenterIn the event this information is protected by the Federal Confidentiality of Alcohol and Drug Abuse Patient Records regulations: The Federal rules restrict any use of the information to criminally investigate or prosecute any alcohol or drug abuse patient.[facility] CenterIn the event this information is protected by the Federal Confidentiality of Alcohol and Drug Abuse Patient Records regulations: The Federal rules restrict any use of the information to criminally investigate or prosecute any alcohol or drug abuse patient.[facility] CenterIn the event this information is protected by the Federal Confidentiality of Alcohol and Drug Abuse Patient Records regulations: The Federal rules restrict any use of the information to criminally investigate or prosecute any alcohol or drug abuse patient.[facility] CenterIn the event this information is protected by the Federal Confidentiality of Alcohol and Drug Abuse Patient Records regulations: The Federal rules restrict any use of the information to criminally investigate or prosecute any alcohol or drug abuse patient.[facility] CenterIn the event this information is protected by the Federal Confidentiality of Alcohol and Drug Abuse Patient Records regulations: The Federal rules restrict any use of the information to criminally investigate or prosecute any alcohol or drug abuse patient.[facility] CenterIn the event this information is protected by the Federal Confidentiality of Alcohol and Drug Abuse Patient Records regulations: The Federal rules restrict any use of the information to criminally investigate or prosecute any alcohol or drug abuse patient.[facility] CenterIn the event this information is protected by the Federal Confidentiality of Alcohol and Drug Abuse Patient Records regulations: The Federal rules restrict any use of the information to criminally investigate or prosecute any alcohol or drug abuse patient.[facility] CenterIn the event this information is protected by the Federal Confidentiality of Alcohol and Drug Abuse Patient Records regulations: The Federal rules restrict any use of the information to criminally investigate or prosecute any alcohol or drug abuse patient.[facility] CenterIn the event this information is protected by the Federal Confidentiality of Alcohol and Drug Abuse Patient Records regulations: The Federal rules restrict any use of the information to criminally investigate or prosecute any alcohol or drug abuse patient.[facility] CenterIn the event this information is protected by the Federal Confidentiality of Alcohol and Drug Abuse Patient Records regulations: The Federal rules restrict any use of the information to criminally investigate or prosecute any alcohol or drug abuse patient.[facility] CenterIn the event this information is protected by the Federal Confidentiality of Alcohol and Drug Abuse Patient Records regulations: The Federal rules restrict any use of the information to criminally investigate or prosecute any alcohol or drug abuse patient.[facility] CenterIn the event this information is protected by the Federal Confidentiality of Alcohol and Drug Abuse Patient Records regulations: The Federal rules restrict any use of the information to criminally investigate or prosecute any alcohol or drug abuse patient.[facility] CenterIn the event this information is protected by the Federal Confidentiality of Alcohol and Drug Abuse Patient Records regulations: The Federal rules restrict any use of the information to criminally investigate or prosecute any alcohol or drug abuse patient.[facility] CenterIn the event this information is protected by the Federal Confidentiality of Alcohol and Drug Abuse Patient Records regulations: The Federal rules restrict any use of the information to criminally investigate or prosecute any alcohol or drug abuse patient.[facility] CenterIn the event this information is protected by the Federal Confidentiality of Alcohol and Drug Abuse Patient Records regulations: The Federal rules restrict any use of the information to criminally investigate or prosecute any alcohol or drug abuse patient.[facility] CenterIn the event this information is protected by the Federal Confidentiality of Alcohol and Drug Abuse Patient Records regulations: The Federal rules restrict any use of the information to criminally investigate or prosecute any alcohol or drug abuse patient.[facility] CenterIn the event this information is protected by the Federal Confidentiality of Alcohol and Drug Abuse Patient Records regulations: The Federal rules restrict any use of the information to criminally investigate or prosecute any alcohol or drug abuse patient.[facility] CenterIn the event this information is protected by the Federal Confidentiality of Alcohol and Drug Abuse Patient Records regulations: The Federal rules restrict any use of the information to criminally investigate or prosecute any alcohol or drug abuse patient.[facility] CenterIn the event this information is protected by the Federal Confidentiality of Alcohol and Drug Abuse Patient Records regulations: The Federal rules restrict any use of the information to criminally investigate or prosecute any alcohol or drug abuse patient.[facility] CenterIn the event this information is protected by the Federal Confidentiality of Alcohol and Drug Abuse Patient Records regulations: The Federal rules restrict any use of the information to criminally investigate or prosecute any alcohol or drug abuse patient.[facility] CenterIn the event this information is protected by the Federal Confidentiality of Alcohol and Drug Abuse Patient Records regulations: The Federal rules restrict any use of the information to criminally investigate or prosecute any alcohol or drug abuse patient.[facility] CenterIn the event this information is protected by the Federal Confidentiality of Alcohol and Drug Abuse Patient Records regulations: The Federal rules restrict any use of the information to criminally investigate or prosecute any alcohol or drug abuse patient.[facility] CenterIn the event this information is protected by the Federal Confidentiality of Alcohol and Drug Abuse Patient Records regulations: The Federal rules restrict any use of the information to criminally investigate or prosecute any alcohol or drug abuse patient.[facility] CenterIn the event this information is protected by the Federal Confidentiality of Alcohol and Drug Abuse Patient Records regulations: The Federal rules restrict any use of the information to criminally investigate or prosecute any alcohol or drug abuse patient.[facility] CenterIn the event this information is protected by the Federal Confidentiality of Alcohol and Drug Abuse Patient Records regulations: The Federal rules restrict any use of the information to criminally investigate or prosecute any alcohol or drug abuse patient.[facility] CenterIn the event this information is protected by the Federal Confidentiality of Alcohol and Drug Abuse Patient Records regulations: The Federal rules restrict any use of the information to criminally investigate or prosecute any alcohol or drug abuse patient.[facility] CenterIn the event this information is protected by the Federal Confidentiality of Alcohol and Drug Abuse Patient Records regulations: The Federal rules restrict any use of the information to criminally investigate or prosecute any alcohol or drug abuse patient.[facility] CenterIn the event this information is protected by the Federal Confidentiality of Alcohol and Drug Abuse Patient Records regulations: The Federal rules restrict any use of the information to criminally investigate or prosecute any alcohol or drug abuse patient.[facility] CenterIn the event this information is protected by the Federal Confidentiality of Alcohol and Drug Abuse Patient Records regulations: The Federal rules restrict any use of the information to criminally investigate or prosecute any alcohol or drug abuse patient.[facility] CenterIn the event this information is protected by the Federal Confidentiality of Alcohol and Drug Abuse Patient Records regulations: The Federal rules restrict any use of the information to criminally investigate or prosecute any alcohol or drug abuse patient.[facility] CenterIn the event this information is protected by the Federal Confidentiality of Alcohol and Drug Abuse Patient Records regulations: The Federal rules restrict any use of the information to criminally investigate or prosecute any alcohol or drug abuse patient.[facility] CenterIn the event this information is protected by the Federal Confidentiality of Alcohol and Drug Abuse Patient Records regulations: The Federal rules restrict any use of the information to criminally investigate or prosecute any alcohol or drug abuse patient.[facility] CenterIn the event this information is protected by the Federal Confidentiality of Alcohol and Drug Abuse Patient Records regulations: The Federal rules restrict any use of the information to criminally investigate or prosecute any alcohol or drug abuse patient.[facility] CenterIn the event this information is protected by the Federal Confidentiality of Alcohol and Drug Abuse Patient Records regulations: The Federal rules restrict any use of the information to criminally investigate or prosecute any alcohol or drug abuse patient.[facility] CenterIn the event this information is protected by the Federal Confidentiality of Alcohol and Drug Abuse Patient Records regulations: The Federal rules restrict any use of the information to criminally investigate or prosecute any alcohol or drug abuse patient.[facility] CenterIn the event this information is protected by the Federal Confidentiality of Alcohol and Drug Abuse Patient Records regulations: The Federal rules restrict any use of the information to criminally investigate or prosecute any alcohol or drug abuse patient.[facility] CenterIn the event this information is protected by the Federal Confidentiality of Alcohol and Drug Abuse Patient Records regulations: The Federal rules restrict any use of the information to criminally investigate or prosecute any alcohol or drug abuse patient.[facility] CenterIn the event this information is protected by the Federal Confidentiality of Alcohol and Drug Abuse Patient Records regulations: The Federal rules restrict any use of the information to criminally investigate or prosecute any alcohol or drug abuse patient.[facility] CenterIn the event this information is protected by the Federal Confidentiality of Alcohol and Drug Abuse Patient Records regulations: The Federal rules restrict any use of the information to criminally investigate or prosecute any alcohol or drug abuse patient.[facility] CenterIn the event this information is protected by the Federal Confidentiality of Alcohol and Drug Abuse Patient Records regulations: The Federal rules restrict any use of the information to criminally investigate or prosecute any alcohol or drug abuse patient.[facility] CenterIn the event this information is protected by the Federal Confidentiality of Alcohol and Drug Abuse Patient Records regulations: The Federal rules restrict any use of the information to criminally investigate or prosecute any alcohol or drug abuse patient.[facility] CenterIn the event this information is protected by the Federal Confidentiality of Alcohol and Drug Abuse Patient Records regulations: The Federal rules restrict any use of the information to criminally investigate or prosecute any alcohol or drug abuse patient.[facility] CenterIn the event this information is protected by the Federal Confidentiality of Alcohol and Drug Abuse Patient Records regulations: The Federal rules restrict any use of the information to criminally investigate or prosecute any alcohol or drug abuse patient.[facility] CenterIn the event this information is protected by the Federal Confidentiality of Alcohol and Drug Abuse Patient Records regulations: The Federal rules restrict any use of the information to criminally investigate or prosecute any alcohol or drug abuse patient.[facility] CenterIn the event this information is protected by the Federal Confidentiality of Alcohol and Drug Abuse Patient Records regulations: The Federal rules restrict any use of the information to criminally investigate or prosecute any alcohol or drug abuse patient.[facility] CenterIn the event this information is protected by the Federal Confidentiality of Alcohol and Drug Abuse Patient Records regulations: The Federal rules restrict any use of the information to criminally investigate or prosecute any alcohol or drug abuse patient.[facility] CenterIn the event this information is protected by the Federal Confidentiality of Alcohol and Drug Abuse Patient Records regulations: The Federal rules restrict any use of the information to criminally investigate or prosecute any alcohol or drug abuse patient.[facility] CenterIn the event this information is protected by the Federal Confidentiality of Alcohol and Drug Abuse Patient Records regulations: The Federal rules restrict any use of the information to criminally investigate or prosecute any alcohol or drug abuse patient.[facility] CenterIn the event this information is protected by the Federal Confidentiality of Alcohol and Drug Abuse Patient Records regulations: The Federal rules restrict any use of the information to criminally investigate or prosecute any alcohol or drug abuse patient.[facility] CenterIn the event this information is protected by the Federal Confidentiality of Alcohol and Drug Abuse Patient Records regulations: The Federal rules restrict any use of the information to criminally investigate or prosecute any alcohol or drug abuse patient.[facility] CenterIn the event this information is protected by the Federal Confidentiality of Alcohol and Drug Abuse Patient Records regulations: The Federal rules restrict any use of the information to criminally investigate or prosecute any alcohol or drug abuse patient.[facility] CenterIn the event this information is protected by the Federal Confidentiality of Alcohol and Drug Abuse Patient Records regulations: The Federal rules restrict any use of the information to criminally investigate or prosecute any alcohol or drug abuse patient.[facility] CenterIn the event this information is protected by the Federal Confidentiality of Alcohol and Drug Abuse Patient Records regulations: The Federal rules restrict any use of the information to criminally investigate or prosecute any alcohol or drug abuse patient.[facility] CenterIn the event this information is protected by the Federal Confidentiality of Alcohol and Drug Abuse Patient Records regulations: The Federal rules restrict any use of the information to criminally investigate or prosecute any alcohol or drug abuse patient.[facility] CenterIn the event this information is protected by the Federal Confidentiality of Alcohol and Drug Abuse Patient Records regulations: The Federal rules restrict any use of the information to criminally investigate or prosecute any alcohol or drug abuse patient.[facility] CenterIn the event this information is protected by the Federal Confidentiality of Alcohol and Drug Abuse Patient Records regulations: The Federal rules restrict any use of the information to criminally investigate or prosecute any alcohol or drug abuse patient.[facility] Reason for Visit (unrecogniz ed section and content) Reason Comments Imm/Inj Reason Comments Trauma right ankle injury a nd wrist x 2 wweks Reason Comments Follow Up Toe Pain (Toe) Bilateral pain, conc jennifer about frostbite Reason Comments Results Reason Comments Full Body Skin Check Reason Comments Insurance Authorization Reason Comments Follow Up Rx Refills Reason Comments Recheck Specialty Diagnoses / Procedures Referred By Contac t Referred To Contact Internal Medicine / INTERNAL MEDICINE Diagnoses 4 months follow up Procedures 4C EST Self Hortencia Love DO [address] [place] [address] Referral ID Status Reason Start Date Expiration Date Visits Re quested Visits Authorized [id number] Closed 05/07/2023 05/15/2023 1 1 Reason Comments Follow Up Reason Comments Patient Update Reason Comments Recheck Reason Comments Insect Bite tick on right ankle Reason Comments New Pain Reason Comments PT Eval Specialty Diagnoses / Procedures Referred By Contac t Referred To Contact [facility] Diagnoses Impingement of right shoulder Procedures CONSULT TO PHYSICAL THERAPY PHYSICAL THERAPY EVALUATION HIGH COMPLEX 45 MINS Juliane Denise PA-C [address] [place] [address] [facility] [place] [address] [place] [address] Referral ID Status Reason Start Date Expiration Date V isits Requested Visits Authorized [id number] Closed Auto-Generate d Referral 07/16/2023 07/15/2024 1 1 Reason Comments LESION, SKIN Reason Comments Physical Therapy Specialty Diagnoses / Procedures Referred By Contac t Referred To Contact [facility] Diagnoses Impingement of right shoulder Acute pain of right shoulder Procedures PT REHAB FOLLOW UP ORDER THERAPEUTIC EXERCISES RE, EA [address] [place] [address] [place] [address] [facility] [address] [place] [id number] Referral ID Status Reason Start Date Expiration Date Visits Requested Visits Authorized [id number] Authorized PCP Requested Referral Auto-Generate d Referral 11/22/2023 02/20/2024 8 8 Reason Comments facial paresthesia Started in Mar when she thought she had a sinus infection. Left side seems affected. Got very sick after RSV vaccine. Throat felt raw, still feels sore. Has an odd smell at night. Had terrible headaches, not top of head feels swollen. Left eye is closed when she wakes in the AM. Sx all started after she had Covid. Ear Problem Ear pain, not an ear ache. Hearing is a little blocked. has a smell in nose Specialty Diagnoses / Procedures Referred By Criselda Referred To Contact Ent - Otolaryngology Diagnoses Facial paresthesia Procedures CONSULT TO ENT OFFICE/OUTPATIENT [facility] 60 MINUTES Nhung Saavedra APRN.DEVELOPMENT CONSULTANT [address] [address] Referral ID Status Reason Start Date Expiration Date V isits Requested Visits Authorized [id number] Closed PCP Requested Referral 10/15/2023 10/14/2024 1 1 Reason Comments Establish Care Reason Comments PT Progress Note Specialty Diagnoses / Procedures Referred By Criselda Referred To Contact [facility] Diagnoses Impingement of right shoulder Acute pain of right shoulder Procedures PT REHAB FOLLOW UP ORDER THERAPEUTIC EXERCISES RE, [place] [address] [place] [address] [place] [address] [facility] [address] [place] [address] Reason Comments Follow Up Reason Onset Date Comments Refill Request 02/07/2024 Reason Comments Dry Eye Syndrome Evaluation Reason Comments Consult headache Specialty Diagnoses / Procedures Referred By Criselda t Referred To Contact [facility] Diagnoses Pain in left wrist Chronic left shoulder pain Procedures PT REHAB FOLLOW UP ORDER THERAPEUTIC EXERCISES RE, EA 15 MIN. Rajeev Hodge MD [address] [facility] [place] [address] [facility] [place] [address] [place] [address] Referral ID Status Reason Start Date Expiration Date Visits Requested Visits Authorized [id number] Authorized PCP Requested Referral Auto-Generate d Referral 02/20/2024 05/20/2024 4 4 Reason Comments Insurance Authorization [id number] Reason Comments PT Discharge Specialty Diagnoses / Procedures Referred By Criselda t Referred To Contact PHYSICAL THERAPY Diagnoses Pain in left wrist Chronic left shoulder pain Procedures PT REHAB FOLLOW UP ORDER THERAPEUTIC EXERCISES RE, EA 15 MIN. Rajeev Hodge MD [address] [facility] [place] [address] Pt [facility] [address] [place] [address] Referral ID Status Reason Start Date Expiration Date V isits Requested Visits Authorized [id number] Closed PCP Requested Referral Auto-Generated Referral 02/20/2024 05/20/2024 4 4 Reason Comments Dry Eye Syndrome Evaluation Reason Comments Follow Up headaches Reason Comments Dry Eye Syndrome Follow Up Reason Comments Feet issues DEYA feet feel like t hey are haji bitten, stinging x 3 weeks Pt has not been outside to get haji bite Reason Comments Patient Question Reason Comments Follow Up Feet/toes tingly,bur remedios, calves,ankles Reason Comments Returning Patient's Call Reason Comments Follow Up toes Reason Onset Date Comments Medication Problem 08/25/2024 Reason Comments ER F/U Multiple issues Reason Onset Date Comments Results 08/25/2024 Reason Comments Follow Up Headaches/ has dry n eedling done in March and its still bothering her Reason Comments Chest Congestion cough, sore throat, bilateral ear pain x 9 days Reason Comments Patient Update Rehab evaluation Reason Comments New Pain discoloration Corns Reason Comments Consult Specialty Diagnoses / Procedures Referred By Criselda t Referred To Contact Vascular Medicine Diagnoses Raynaud's disease without gangrene Procedures CONSULT TO VASCULAR MEDICINE OFFICE/OUTPATIENT [facility] 60 MINUTES Michael Flynn MD [address] [place] [address] Phone: tel: fax: Referral ID Status Reason Start Date Expiration Date V isits Requested Visits Authorized [id number] Closed PCP Requested Referral 08/16/2024 08/16/2025 1 1 Reason Comments Orders Consult Gastro provider Reason Comments Question Reason Onset Date Comments Results 02/09/2025 Reason Comments Follow Up On neck & back pain, still hasn't picked up prescription, did have an episode where she was in an elevator that caused dizziness Reason Comments Eye Problem Patient believes carlos t she woke up with a bump to R eye and bruising that has gotten worse as the day has gone on. Unknown injury, denies thinners Care Teams (unrecognized sec tion and content) Medical Examiner Relationship Specialty Start Date End Date Hortencia Love DO [address] [place], [place] [id number] PCP - General Internal Medicine 02/01/21 Medical Examiner Relationship Specialty Start Date End Date Hortencia Love DO [address] [place] [address] PCP - General Internal Medicine 02/01/21 Medical Examiner Relationship Specialty Start Date End Date Hortencia Love DO [address] [place] [address] PCP - General Internal Medicine 02/01/21 Medical Examiner Relationship Specialty Start Date End Date Hortencia Love DO [address] [place] [address] PCP - General Internal Medicine 02/01/21 Medical Examiner Relationship Specialty Start Date End Date Hortencia Love DO [address] [place] [address] PCP - General Internal Medicine 02/01/21 Medical Examiner Relationship Specialty Start Date End Date Hortencia Love [address] [place] [address] PCP - General Internal Medicine 02/01/21 Medical Examiner Relationship Specialty Start Date End Date Ivan Hortencia, [address] [place] [address] PCP - General Internal Medicine 02/01/21 Medical Examiner Relationship Specialty Start Date End Date Hortencia Love [address] [place] [address] PCP - General Internal Medicine 02/01/21 Medical Examiner Relationship Specialty Start Date End Date Hortencia Love [address] [place] [address] PCP - General Internal Medicine 02/01/21 Medical Examiner Relationship Specialty Start Date End Date Hortencia Love DO [address] [place] [address] PCP - General Internal Medicine 02/01/21 Medical Examiner Relationship Specialty Start Date End Date Hortencia Love DO [address] [place] [address] PCP - General Internal Medicine 02/01/21 Medical Examiner Relationship Specialty Start Date End Date Hortencia Love DO [address] [place] [address] PCP - General Internal Medicine 02/01/21 Medical Examiner Relationship Specialty Start Date End Date Hortencia Love DO [address] [place] [address] PCP - General Internal Medicine 02/01/21 Medical Examiner Relationship Specialty Start Date End Date Hortencia Love DO [address] [place] [address] PCP - General Internal Medicine 02/01/21 Medical Examiner Relationship Specialty Start Date End Date Hortencia Love DO [address] [place] [address] PCP - General Internal Medicine 02/01/21 Medical Examiner Relationship Specialty Start Date End Date Hortencia Love DO [address] [place] [address] PCP - General Internal Medicine 02/01/21 Medical Examiner Relationship Specialty Start Date End Date Hortencia Love DO [address] [place] [address] PCP - General Internal Medicine 02/01/21 Medical Examiner Relationship Specialty Start Date End Date Hortencia Love DO [address] [place] [address] PCP - General Internal Medicine 02/01/21 Medical Examiner Relationship Specialty Start Date End Date Hortencia Love DO [address] [place] [address] PCP - General Internal Medicine 02/01/21 Medical Examiner Relationship Specialty Start Date End Date Hortencia Love DO [address] [place] [address] PCP - General Internal Medicine 02/01/21 Medical Examiner Relationship Specialty Start Date End Date Hortencia Love DO [address] [place] [address] PCP - General Internal Medicine 02/01/21 Medical Examiner Relationship Specialty Start Date End Date Hortencia Love DO [address] [place], [place] [id number] PCP - General Internal Medicine 02/01/21 Medical Examiner Relationship Specialty Start Date End Date Hortencia Love DO [address] [place] [address] PCP - General Internal Medicine 02/01/21 Medical Examiner Relationship Specialty Start Date End Date Hortencia Love DO [address] [place], [place] [id number] PCP - General Internal Medicine 02/01/21 Medical Examiner Relationship Specialty Start Date End Date Hortencia Love DO [address] [place], [place] [id number] PCP - General Internal Medicine 02/01/21 Medical Examiner Relationship Specialty Start Date End Date Michael Flynn MD [address] [address] PCP - General Internal Medicine 12/28/23 Medical Examiner Relationship Specialty Start Date End Date iMchael Flynn MD [address] [address] PCP - General Internal Medicine 12/28/23 Medical Examiner Relationship Specialty Start Date End Date Michael Flynn MD [address] [address] PCP - General Internal Medicine 12/28/23 Medical Examiner Relationship Specialty Start Date End Date Michael Flynn MD [address] [address] PCP - General Internal Medicine 12/28/23 Medical Examiner Relationship Specialty Start Date End Date Michael Flynn MD [address] [address] PCP - General Internal Medicine 12/28/23 ProviderJewell MD Pvc Loader 01/15/24 01/28/24 Medical Examiner Relationship Specialty Start Date End Date Michael Flynn MD [address] [address] PCP - General Internal Medicine 12/28/23 Medical Examiner Relationship Specialty Start Date End Date Michael Flynn MD [address] [address] PCP - General Internal Medicine 12/28/23 Medical Examiner Relationship Specialty Start Date End Date Michael Flynn MD [address] [place] [address] PCP - General Internal Medicine 12/28/23 Medical Examiner Relationship Specialty Start Date End Date Michael Flynn MD [address] [address] PCP - General Internal Medicine 12/28/23 Medical Examiner Relationship Specialty Start Date End Date Michael Flynn MD [address] [address] PCP - General Internal Medicine 12/28/23 Medical Examiner Relationship Specialty Start Date End Date Michael Flynn MD [address] [address] PCP - General Internal Medicine 12/28/23 Medical Examiner Relationship Specialty Start Date End Date Michael Flynn MD [address] [address] PCP - General Internal Medicine 12/28/23 Medical Examiner Relationship Specialty Start Date End Date Michael Flynn MD [address] [address] PCP - General Internal Medicine 12/28/23 Medical Examiner Relationship Specialty Start Date End Date Michael Flynn MD [address] [address] PCP - General Internal Medicine 12/28/23 Medical Examiner Relationship Specialty Start Date End Date Michael Flynn MD [address] [address] PCP - General Internal Medicine 12/28/23 Medical Examiner Relationship Specialty Start Date End Date Hortencia Love DO [address] [place] [address] PCP - General Internal Medicine 02/01/21 12/27/23 Medical Examiner Relationship Specialty Start Date End Date Michael Flynn MD [address] [address] PCP - General Internal Medicine 12/28/23 Medical Examiner Relationship Specialty Start Date End Date Jocelynn Shaw MD [address] [place] [address] PCP - General Internal Medicine 05/23/16 01/31/21 Medical Examiner Relationship Specialty Start Date End Date Michael Flynn MD [address] [address] PCP - General Internal Medicine 12/28/23 Medical Examiner Relationship Specialty Start Date End Date Michael Flynn MD [address] [address] PCP - General Internal Medicine 12/28/23 Medical Examiner Relationship Specialty Start Date End Date Leonarda Boykin MD [address] [place] [address] PCP - General Family Medicine 08/25/24 Medical Examiner Relationship Specialty Start Date End Date Leonarda Boykin MD [address] [place] [address] PCP - General Family Medicine 08/25/24 Medical Examiner Relationship Specialty Start Date End Date Leonarda Boykin MD [address] [place] [address] PCP - General Family Medicine 08/25/24 Medical Examiner Relationship Specialty Start Date End Date Leonarda Boykin MD [address] [place] [address] PCP - General Family Medicine 08/25/24 Medical Examiner Relationship Specialty Start Date End Date Leonarda Boykin MD [address] [place] [address] PCP - General Family Medicine 08/25/24 Medical Examiner Relationship Specialty Start Date End Date Leonarda Boykin MD [address] [place] [address] PCP - General Family Medicine 08/25/24 Medical Examiner Relationship Specialty Start Date End Date Leonarda Boykin MD [address] [place] [address] PCP - General Family Medicine 08/25/24 Medical Examiner Relationship Specialty Start Date End Date Leonarda Boykin MD [address] [place] [address] PCP - General Family Medicine 08/25/24 Medical Examiner Relationship Specialty Start Date End Date Leonarda Boykin MD [address] [place] [address] PCP - General Family Medicine 08/25/24 Khushi Dawkins PA-C [address] [place] [address] Pvc Loader Family Medicine 09/25/24 Medical Examiner Relationship Specialty Start Date End Date Leonarda Boykin MD [address] [place] [address] PCP - General Family Medicine 08/25/24 Khushi Dawkins PA-C [address] [place] [address] Pvc Loader Family Medicine 09/25/24 Medical Examiner Relationship Specialty Start Date End Date Leonarda Boykin MD [address] [place] [address] PCP - General Family Medicine 08/25/24 Khushi Dawkins PA-C [address] [place] [address] Pvc Loader Family Medicine 09/25/24 Medical Examiner Relationship Specialty Start Date End Date Leonarda Boykin MD [address] [place] [address] PCP - General Family Medicine 08/25/24 Khushi Dawkins PA-C [address] [place] [address] Pvc Loader Family Medicine 09/25/24 Medical Examiner Relationship Specialty Start Date End Date Leonarda Boykin MD [address] [place] [address] PCP - General Family Medicine 08/25/24 Khushi Dawkins PA-C [address] [place] [address] Pvc Loader [facility] 09/25/24 Medical Examiner Relationship Specialty Start Date End Date Leonarda Boykin MD [address] [place] [address] PCP - General Family Medicine 08/25/24 Khushi Dawkins PA-C [address] [place] [address] Pvc Loader Family Medicine 09/25/24 Medical Examiner Relationship Specialty Start Date End Date Leonarda Boykin MD [address] [place] [address] PCP - General Family Medicine 08/25/24 Khushi Dawkins PA-C [address] [place] [address] Pvc Loader Family Medicine 09/25/24 Medical Examiner Relationship Specialty Start Date End Date Generic Provider, No Assigned Pcp, [place] [address] PCP - General Steamfitter Apprentice 03/05/25 FOR RECORDS PERTAINING TO PATIENTS WHO ARE OR HAVE BEEN ENROLLED IN A CHEMICAL DEPENDENCY/SUBSTANCEABUSE PROGRAM, SOME INFORMATION MAY BE OMITTED. This clinical summary was aggregated from multiple sources. Caution should be exercised in using it in the provision of clinical care. This summary normalizes information from multiple sources, and as a consequence, information in this document may materially change the coding, format and clinical context of patient data. In addition, data may be omitted in some cases. CLINICAL DECISIONS SHOULD BE BASED ON THE PRIMARY CLINICAL RECORDS. [facility]. provides no warranty or guarantee of the accuracy or completeness of information in this document.
== END | disposition home or self-care (01) ==
LOC: MRI 13:39
PROVIDERS: PCP Family Medicine Sports Medicine; Referring Provider Orthopaedic Surgery Sports Medicine; Visit Provider Orthopaedic Surgery Sports Medicine
DX: M17.12 Unilateral primary osteoarthritis, left knee (principal); M25.562 Pain in left knee
CPT/HCPCS: 73221; 73721

== ENCOUNTER → 2025-03-25 | Outpatient (CLI) | payer MEDICARE, SELFPAY ==
[2025-03-25 13:00] LABS: Prothrombin Time (Protime)PT. 13.6 SECONDS (11.7-14.9)
[2025-03-25 13:01] LABS: Partial Thromboplast Time 25.5 Seconds (24.1-36.2)
[2025-03-25 14:49] LABS: AST(SGOT) 30 U/L (<=31); Alanine Aminotransfer ALT/SGPT 23 U/L (<=34); Albumin, Serum 4.1 g/dL (3.4-4.8); Alkaline Phosphatase 75 U/L (35-104); Anion Gap 10 (5-15); BUN 16 mg/dL (4-19); BUN/Creat Ratio 22.3 RATIO (10-20); Calcium,Total 9.4 mg/dL (7.6-11.0); Carbon Dioxide 25.5 mmol/L (21.0-32.0); Chloride 106 mmol/L (98-108); Globulin 2.4 g/dL (2.2-4.2); Glucose 89 mg/dL (70-99); Magnesium 2.2 mg/dL (1.5-2.2); Potassium 3.7 mmol/L (3.3-5.1); Vitamin B12 1910 pg/mL (180-914)
[2025-03-30 12:08] LABS: ANTINUCLEAR ANTIBODIES DIRECT Negative (Negative); Vitamin D 1,25-Dihydroxy 51.6 pg/mL (24.8-81.5)
[2025-03-31 18:08] LABS: Folate, Hemolysate Test 469.0 ng/mL (Not Estab.); Folate, RBC (Hct) Test 40.5 % (34.0-46.6); Folates, RBC Test 1158 ng/mL (>498); VITAMIN B6 12.2 ug/L (3.4-65.2); Vitamin B1, Thiamine 109.3 nmol/L (66.5-200.0)
== END | disposition home or self-care (01) ==
LOC: MTLAB 09:28
PROVIDERS: PCP Family Medicine Sports Medicine; Referring Provider Psychiatry & Neurology Neurology; Visit Provider Psychiatry & Neurology Neurology
DX: G62.9 Polyneuropathy, unspecified (principal); T14.8XXA Other injury of unspecified body region, initial encounter; X58.XXXA Exposure to other specified factors, initial encounter
CPT/HCPCS: 36415; 80053; 82607; 82652; 82747; 83735; 83883; 84207; 84425; 85014; 85610; 85730; 86038; 86225; 86235

== ENCOUNTER → 2025-03-31 | Outpatient (CLI) | payer MEDICARE, SELFPAY ==
--- NOTE | 2025-03-31 07:23 | BD_ITS ---
PROCEDURE: DEXA BONE DENSITY STUDY 03/31/2025 REASON FOR EXAM: F, age 64 y/o . Postmenopausal. TECHNIQUE: Procedure Code: BDDBD Modality: DX Procedure: DEXA BONE DENSITY STUDY COMPARISON: None FINDINGS: BMD and T-SCORES Lumbar spine: 0.698 g/cm2, T-score -3.2 Levels: L1 through L4 Left femoral neck: 0.571 g/cm2, T-score -2.5 Femoral neck comparison data not recommended for monitoring change. Left total hip: 0.707 g/cm2, T-score -1.9 Right femoral neck: 0.603 g/cm2, T-score -2.2 Femoral neck comparison data not recommended for monitoring change. Right total hip: 0.732 g/cm2, T-score -1.7 The World Health Organization has defined the following categories based on bone density: Normal bone density: T-score equal to or greater than -1.0 Osteopenia: T-score between -1.0 and -2.5 Osteoporosis: T-score equal to or less than -2.5 FRAX (or Comparable) Fracture Risk Assessment: 10 Year Probability of Fracture: Major Osteoporotic Fracture: 30% Hip Fracture: 4.4% (Note: FRAX is not to be reported in setting of normal range bone density, osteoporosis on DEXA, known history of osteoporosis, prior osteoporotic hip or vertebral fracture, or for any patient undergoing pharmacological treatment for bone loss.) The National Osteoporosis Foundation (NOF) recommends pharmacological treatment for patients with a FRAX 10-year risk of 3% or higher for a hip fracture, or 20% or higher for a major osteoporotic fracture, to prevent osteoporosis and reduce fracture risk. The patient does meet the pharmacological treatment recommendations for prevention of osteoporosis. BD/Dexa Bone Density Study IMPRESSION: OSTEOPOROSIS. Recommend follow-up as clinically warranted. Reading Location: [place] [address]
--- OUTSIDE RECORDS SUMMARY | 2025-03-31 07:28 | XMS RPT_ITS | CCD ---
Author Organization [facility] Care Team Providers Care Dna Sequencing Associate Name Role Phone Hortencia Love DO Primary Care Provider Ebonie FRAZIER, Michael Primary Care Provider Jewell Ruiz MD Unavailable Unavailable Hortencia Love DO Primary Care Provider Colin FRAZIER, Jocelynn Primary Care Provider Ashutosh FRAZIER, Leonarda Primary Care Provider [phone] FLYNN, MICHAEL Referring Unavailable FLYNN, MICHAEL Primary Care Unavailable DISTEL, LEONARDA Referring Unavailable DISTEL, LEONARDA Primary Care Unavailable DISTEL, LEONARDA Referring Unavailable FLYNN, MICHAEL Primary Care Unavailable FLYNN, MICHAEL Primary Care Unavailable JANIS LOPEZ Admitting Unavailable ALCH, PROTESTANT Attending Unavailable FLYNN, MICHAEL Primary Care Unavailable JUAN PATHAK Attending Unavailable Khushi Dawkins PA-C Unavailable DISTEL, LEONARDA Primary Care Unavailable DISTEL, LEONARDA Referring Unavailable FLYNN, MICHAEL Primary Care Unavailable ALCH, PROTESTANT Referring Unavailable CARLOTTA ARCHER Attending Unavailable DISTEL, [...] Care Unavailable FLYNN, MICHAEL Primary Care Unavailable YANCY, STARR R Attending Unavailable FLYNN, MICHAEL Primary Care [...] Care Unavailable GIANNI, CARLOTTA Y Attending Unavailable AYESHA RAJEEV C Referring Unavailable FLYNN, MICHAEL Primary [...] PROVIDER, NO ASSIGNED PCP Primary Care Unavailable Derrell Hollingsworth Referring Unavailable Derrell Hollingsworth Attending Unavailable Care Physician, No Primary Primary Care Unava ilable Care Physician, No Primary Primary Care Unava ilable Davidson Mack Referring Unavailable Davidson Mack Attending Unavailable Juliano Alatorre Referring Unavailable Juliano Alatorre Attending Unavailable Distel, Leonarda Primary Care Unavailable Derrell Hollingsworth Attending Unavailable Care Physician, No Primary Primary Care Unava ilable Juliano Alatorre Attending Unavailable Distel, Leonarda Primary Care Unavailable Distel, Leonarda Referring Unavailable Distel, Leonarda Primary Care Unavailable Arpit Alvarez Attending Unavailable Distel, Leonarda Primary Care Unavailable Yves Ríos Referring Unavailable Yves Ríos Attending Unavailable Distel, Leonarda Primary Care Unavailable Yves Ríos Referring Unavailable Yves Ríos Attending Unavailable Distel, Leonarda Primary Care Unavailable Ilan Alcaraz Referring Unavailable Ilan Alcaraz Attending Unavailable Sheng Ward Attending Unavailable Distel, Leonarda Primary Care Unavailable Juliano Alatorre Consulting Unavailable Distel, Leonarda Primary Care Unavailable Ronda German Referring Unavailable Ronda German Attending Unavailable Distel, Leonarda Primary Care Unavailable Baddour, Yves Referring Unavailable Baddour, Yves Attending Unavailable Distel, Leonarda Primary Care Unavailable Baddour, Yves Attending Unavailable Baddour, Yves Referring Unavailable Care Physician, No Primary Primary Care Unava ilable OOTDR HARMEET Attending Unavailable OOTDR HARMEET Referring Unavailable Distel, Leonarda Primary Care Unavailable Care Physician, No Primary Referring Unava ilable Baddour, Yves Attending Unavailable KimArpit wahl Attending Unavailable Care Physician, No Primary Primary Care Unava ilable Juliano Alatorre Attending Unavailable Distel, Leonarda Referring Unavailable Distel, Leonarda Primary Care Unavailable Derrell Hollingsworth Attending Unavailable Care Physician, No Primary Referring Unava ilable Care Physician, No Primary Primary Care Unava ilable Juliano Alatorre Attending Unavailable Distel, Leonarda Primary Care Unavailable Distel, Leonarda Referring Unavailable Distel, Leonarda Primary Care Unavailable Distel, Leonarda Referring Unavailable MonserratRonda Attending Unavailable Allergies Allergy Classification Reported Allergen(s) Allergy Type Date of Onset Reaction(s) Facility Corticosteroids (4 sources) fluticasone Drug Allergy 6 Other: See Comments, Mental Status Change [facility] Penicillins (antibiotic) (2 sources) Penicillins Drug Allergy 6 Rash [facility] (20 sources) fluticasone; Translations: [FLUTICASONE PROPIONATE] Drug Allergy 0 Other: See Comments, Other [facility] (9 sources) Penicillins; Translations: [PENICILLINS] Drug Allergy 6 Rash [facility] (20 sources) predniSONE; Translations: [PREDNISONE] Drug Allergy 6 Mental Status Change, Other [facility] (20 sources) Penicillins Drug Allergy 6 Rash [facility] (7 sources) Penicillins Drug Allergy 6 Rash, Unknown [facility] (1 source) fluticasone Drug Allergy 5 [facility] (1 source) Penicillins Drug allergy (disorder) 5 [facility] (1 source) predniSONE Drug Allergy 5 [facility] Medications Current Medications Medication Drug Class(es) [...] days. 42 tablet 09/04/2024 09/18/2024 Active nystatin 285641 unt/ml oral suspension (3 sources) Polyene Antifungal [...] Comment on above: Take 1 capsule by [facility] once daily. cyanocobalamin/thiamin e HCl (WESLEY-B-12 ORAL) [...] Onset: 12-28-2023 12-28-2023 Chronic Headache; including migraine (4 sources) Headache; including migraine; Translations: [Chronic intractable [...] and tendon, right thigh] 02-04-2025 Episodic Other connective tissue disease (1 source) Other shoulder lesions, right shoulder; Translations: [Other shoulder lesions, right shoulder] Onset: 03-30-2025 Episodic Other connective tissue disease (1 source) Unspecified rotator cuff tear or rupture of right shoulder, not specified as traumatic; Translations: [Unspecified rotator cuff tear or rupture of right shoulder, not specified as traumatic] Onset: 03-30-2025 Episodic Other connective tissue disease (1 source) Synovial cyst of popliteal space [Brumfield], left knee; Translations: [Synovial cyst of popliteal space [Brumfield], left knee] Onset: 03-30-2025 Episodic Other diseases of veins and lymphatics [...] upper and lower eyelids] 02-27-2024 Episodic Other fractures (1 source) Wedge compression fracture of unspecified thoracic vertebra, initial encounter for closed fracture; Translations: [Wedge compression fracture of unspecified thoracic vertebra, initial encounter for closed fracture] Onset: 03-30-2025 Episodic Other injuries and conditions due to [...] Onset: 02-04-2025 Episodic Other non-traumatic joint disorders (1 source) Pain in left knee; Translations: [Pain in left knee] Onset: 03-30-2025 Episodic Other nutritional; endocrine; and metabolic disorders [...] [Radiculopathy, cervical region] Onset: 01-08-2017 01-08-2017 Episodic Substance-related disorders (20 sources) Tobacco dependence [...] in left elbow] Onset: 05-30-2017 05-30-2017 Episodic Other non-traumatic joint disorders (2 sources) Pain in left hip; Translations: [Left hip pain] Onset: 12-17-2024 Episodic Residual codes; unclassified (20 sources) Tobacco use and exposure - finding; Translations: [Tobacco use] Onset: 10-20-2013 Resolved: 01-07-2020 01-07-2020 Episodic Sprains and strains (1 source) Strain of muscle, fascia and tendon of left hip, initial encounter; Translations: [Strain of muscle, fascia and tendon of left hip, initial encounter] Onset: 12-17-2024 Episodic Results Test Name Value Interpretation Reference Range Facil ity SHELBIE w/ Reflex Mult Confirmon 03-30-2025 ANTI-DNA (DS)AB TNP [facility] Comment on above: Performed By: #### L 500.4050, L501.5200, L503.0106, L3100.5450, L3300.0960, L300.4310, L300.3900 ####[facility] [address] [place], [address] ANTI-SS-A TNP Normal [facility] Comment on above: Performed By: #### L 500.4050, L501.5200, L503.0106, L3100.5450, L3300.0960, L300.4310, L300.3900 ####[facility] [address] [place], [place], [id number] ANTI-SS-B TNP Normal [facility] Comment on above: Performed By: #### L 500.4050, L501.5200, L503.0106, L3100.5450, L3300.0960, L300.4310, L300.3900 ####[facility] [address] [place], [place], [id number] Orthopedic Visit Reporton Orthopedic Visit Report [facility] [address] [place] [id number] OFFICE VISIT Date of Service: 03/30/25 MR#: [id number] Acct: [id number] Name: GIOVANNA NATION Rep #: [id number] : 1960 Provider: Dr. Juliano herrera MD Age/Sex: 64/F [place] [facility] Status: Signed Intake Vital Signs 03/23/25 09:04 Height 5 ft 3 in Weight: 105 lb 6 oz BMI 18.6 BP 109/74 Blood Pressure Location Rt brachial Position Sitting Respiration 16 Pulse 74 Pulse Source Monitor Temp 98.4 F Temp Source Temporal Pulse Oximetry (%) 99 Oxygen Delivery Method room air Intake Visit Reasons: LEFT KNEE Chief Complaint: mri review Allergies Penicillins (PCN) Allergy (Verified 03/30/25 08:51) Hives prednisone Allergy (Verified 03/30/25 08:51) Unknown fluticasone (From Flovent HFA) Adverse Reaction (Verified 03/30/25 08:51) Mental status change Medications ???Medication ???Instructions ???Recorded ???Confirmed ???Type losartan 50 mg-hydrochlorothiazide 1 tab PO DAILY 11/16/23 03/30/25 History 12.5 mg tablet Lactobacillus acidophilus 5,000 mmu cells PO QDAY 10/31/24 0 03/30/25 History (Acidophilus capsule) cholecalciferol (vitamin D3) 25 50 mcg PO QDAY 10/31/24 03/30/25 H istory mcg (1,000 unit) tablet cyanocobalamin (vitamin B-12) 25 50 mcg PO DAILY 10/31/24 03/30/25 History mcg tablet doxepin 10 mg capsule 10 mg PO QHS 10/31/24 03/30/25 His tory magnesium citrate 70 mg-potassium 1 cap PO QDAY 10/31/24 03/30/25 H istory citrate 99 mg capsule methocarbamol 500 mg tablet 500 mg PO BID PRN 12/17/24 5 History buspirone 5 mg tablet 5 mg PO BID #60 tabs 03/23/2503/16 Rx Have you fallen in the past year?: Yes [facility] Medical History (Updated 03/30/25 @ 09:03 by Juliano Alatorre MD) Arthrosis of right acromioclavicular joint Right rotator cuff tendonitis Right rotator cuff tear Synovial cyst of popliteal space [Brumfield], left knee Osteoarthritis of left knee Left knee pain [...] made by me, Dr. Juliano Alatorre MD 03/30/25 0849. Part of today???s visit was documented by [ ], acting as scribe. GIOVANNA NATION is a 64 year old F here today for FU L knee mri and right shoulder FU MRI. the knee feels some pain posteriorly and medial side, feels some fullness there. and from a big hug from a taller individual. Ortho Exam General General: Yes no acute distress Neurologic: Yes alert and Yes oriented x3 Psychologic: Yes reasonable and appropriate Left Knee Knee ROM: Yes ROM-Flexion 0-140 Right Shoulder Testing: Positive AROM-Forward Elevation 0-180 and PROM-External Rotation at side 0-60; Negative Hawkin's or Neer's Supplemental Info [facility] Imaging Services [address] [place], [place] [address] Lower Ext Joint Only (Routine) MR#: [id number] Acct: [id number] Name: GIOVANNA NATION Rep #: [id number] : 1960 F 64 From: Mohit Hinds MD PCP: Dr. Leonarda Boykin MD Status: REG CLI Study: Lower Ext Joint Only (Routine) Date of Exam: 03/18/25 Exam# [id number] Ordering Dr: Juliano Alatorre MD PROCEDURE: LOWER EXT JOINT ONLY (ROUTINE) 03/18/2025 REASON FOR EXAM: PAIN, MEDIAL SIDE ? MM TEAR, MILD OA TECHNIQUE: Procedure Code: MRILEJ Modality: MR Procedure: LOWER EXT JOINT ONLY (ROUTINE) Multiplanar and multisequence images were obtained without IV contrast administration. COMPARISON: COMPARISON : None FINDINGS: Femorotibial: There is genu recurvatum. There is no positive MR drawer sign. Proximal tibiofibular congruency is maintained. Small knee joint effusion with fluid decompressing into the suprapatellar bursa. No hemarthrosis or lipohemarthrosis seen. Patellofemoral: Patellar height is slight [place]. Axial patellofemoral alignment is anatomic. The femoral trochlea is well formed wi (more content not included)... Normal [facility] Vitamin D 1,25-Dihydroxyon 0 03-30-2025 VIT D 1,25 DIHY 51.6 pg/mL Normal 24.8-81.5 [facility] Comment on above: Performed By: #### L 500.4050, L501.5200, L503.0106, L3100.5450, L3300.0960, L300.4310, L300.3900 ####[facility] [address] [place], [address] Comprehensive Metabolic Prof [facility] 03-25-2025 Albumin [Mass/Vol] 4.1 g/dL Normal 3.4-4.8 [facility] Comment on above: Performed By: #### L 500.4050, L501.5200, L503.0106, L3100.5450, L3300.0960, L300.4310, L300.3900 ####[facility] [address] [place], [address] Albumin/Globulin [Mass ratio] 1.7 {ratio} Normal 0.9-2.4 [facility] Comment on above: Performed By: #### L 500.4050, L501.5200, L503.0106, L3100.5450, L3300.0960, L300.4310, L300.3900 ####[facility] [address] [place], [address] ALK PHOS 75 U/L Normal 35-104 [facility] Comment on above: Performed By: #### L 500.4050, L501.5200, L503.0106, L3100.5450, L3300.0960, L300.4310, L300.3900 ####[facility] [address] [place], [address] ALT [Catalytic activity/Vol] 23 U/L Normal <=34 [facility] Comment on above: Performed By: #### L 500.4050, L501.5200, L503.0106, L3100.5450, L3300.0960, L300.4310, L300.3900 ####[facility] [address] [place], [address] AST [Catalytic activity/Vol] 30 U/L Normal <=31 [facility] Comment on above: Performed By: #### L 500.4050, L501.5200, L503.0106, L3100.5450, L3300.0960, L300.4310, L300.3900 ####[facility] [address] [place], [address] Bilirubin [Mass/Vol] 0.46 mg/dL Normal 0.00-1.30 [facility] Comment on above: Performed By: #### L 500.4050, L501.5200, L503.0106, L3100.5450, L3300.0960, L300.4310, L300.3900 ####[facility] [address] [place], [address] BUN/CRE 22.3 RATIO High 10-20 [facility] Comment on above: Performed By: #### L 500.4050, L501.5200, L503.0106, L3100.5450, L3300.0960, L300.4310, L300.3900 ####[facility] [address] [place], [address] Calcium [Mass/Vol] 9.4 mg/dL Normal 7.6-11.0 [facility] Comment on above: Performed By: #### L 500.4050, L501.5200, L503.0106, L3100.5450, L3300.0960, L300.4310, L300.3900 ####[facility] [address] [place], [address] Chloride [Moles/Vol] 106 mmol/L Normal 98-108 [facility] Comment on above: Performed By: #### L 500.4050, L501.5200, L503.0106, L3100.5450, L3300.0960, L300.4310, L300.3900 ####[facility] [address] [place], [address] CO2 [Moles/Vol] 25.5 mmol/L Normal 21.0-32.0 [facility] Comment on above: Performed By: #### L 500.4050, L501.5200, L503.0106, L3100.5450, L3300.0960, L300.4310, L300.3900 ####[facility] [address] [place], [place], [phone]) Creatinine [Mass/Vol] 0.74 mg/dL Normal 0.70-1.20 [facility] Comment on above: Performed By: #### L 500.4050, L501.5200, L503.0106, L3100.5450, L3300.0960, L300.4310, L300.3900 ####[facility] [address] [place], [address] GAP 10 Normal 5-15 [facility] Comment on above: Performed By: #### L 500.4050, L501.5200, L503.0106, L3100.5450, L3300.0960, L300.4310, L300.3900 ####[facility] [address] [place], [place], [phone] GFR/1.73 sq M.predicted among non-blacks MDRD (S/P/Bld) [Vol rate/Area] 90 mL/min/{1.73_m2} Normal >60 [facility] Comment on above: Result Comment: mL/m in/1.73m2 CKD-EPI Creatinine Equation (2020) Performed By: #### L 500.4050, L501.5200, L503.0106, L3100.5450, L3300.0960, L300.4310, L300.3900 ####[facility] [address] [place], [address] Globulin (S) [Mass/Vol] 2.4 g/dL Normal 2.2-4.2 [facility] Comment on above: Performed By: #### L 500.4050, L501.5200, L503.0106, L3100.5450, L3300.0960, L300.4310, L300.3900 ####[facility] [address] [place], [address] Glucose [Mass/Vol] 89 mg/dL Normal 70-99 [facility] Comment on above: Performed By: #### L 500.4050, L501.5200, L503.0106, L3100.5450, L3300.0960, L300.4310, L300.3900 ####[facility] [address] [place], [address] Potassium [Moles/Vol] 3.7 mmol/L Normal 3.3-5.1 [facility] Comment on above: Performed By: #### L 500.4050, L501.5200, L503.0106, L3100.5450, L3300.0960, L300.4310, L300.3900 ####[facility] [address] [place], [address] Sodium [Moles/Vol] 142 mmol/L Normal 133-145 [facility] Comment on above: Performed By: #### L 500.4050, L501.5200, L503.0106, L3100.5450, L3300.0960, L300.4310, L300.3900 ####[facility] [address] [place], [address] T PROT 6.5 g/dL Normal 5.9-8.4 [facility] Comment on above: Performed By: #### L 500.4050, L501.5200, L503.0106, L3100.5450, L3300.0960, L300.4310, L300.3900 ####[facility] [address] [place], [address] Urea nitrogen [Mass/Vol] 16 mg/dL Normal 4-19 [facility] Comment on above: Performed By: #### L 500.4050, L501.5200, L503.0106, L3100.5450, L3300.0960, L300.4310, L300.3900 ####[facility] [address] [place], [address] Magnesiumon 03-25-2025 Magnesium [Mass/Vol] 2.2 mg/dL Normal 1.5-2.2 [facility] Comment on above: Performed By: #### L 500.4050, L501.5200, L503.0106, L3100.5450, L3300.0960, L300.4310, L300.3900 ####[facility] [address] [place], [address] Partial Thromboplast Timeon 03-25-2025 aPTT Coag (Bld) [Time] 25.5 s Normal 24.1-36.2 [facility] Comment on above: Performed By: #### L 500.4050, L501.5200, L503.0106, L3100.5450, L3300.0960, L300.4310, L300.3900 ####[facility] [address] [place], [address] Prothrombin Time w/INRon INR Coag (PPP) [Relative time] 1.0 {INR} Normal [facility] Comment on above: Performed By: #### L 500.4050, L501.5200, L503.0106, L3100.5450, L3300.0960, L300.4310, L300.3900 ####[facility] [address] [place], [address] PT Coag (PPP) [Time] 13.6 s Normal 11.7-14.9 [facility] Comment on above: Performed By: #### L 500.4050, L501.5200, L503.0106, L3100.5450, L3300.0960, L300.4310, L300.3900 ####[facility] [address] [place], [place], [id number] Vitamin B12on 03-25-2025 Cobalamin (Vitamin B12) [Mass/Vol] 1910 pg/mL High 180-914 [facility] Comment on above: Performed By: #### L 500.4050, L501.5200, L503.0106, L3100.5450, L3300.0960, L300.4310, L300.3900 ####[facility] [address] [facility] [place], [place], [id number] Neurology Visit Reporton Neurology Visit Report [facility] [address] [place] [address], [address] [place], [place] [address] OFFICE VISIT Date of Service: 03/23/25 MR#: [id number] Acct: [id number] Name: GIOVANNA NATION Rep #: [id number] : 1960 Provider: Dr. Yves rosario MD Age/Sex: 64/F [place] [facility] Status: Signed HPI HPI Details: History: The patient is a 64-year-old right-handed woman with a past medical history of hypertension and ADHD who presents for evaluation of headaches and other symptoms. She states that she received an RSV vaccine in April 2023 and experienced a side effect of headaches, left-sided facial numbness, difficulty in opening of the left eye and tingling over her face, tongue torso and all extremities. Her left eye opening difficulty resolved over several weeks. Her headaches were continuous for about 1 year then diminished in frequency and severity. She describes the headaches as bilateral parietal and bilateral occipital sharp pain that was severe. After about 1 year the headache severity diminished significantly and the headaches now have a dull character. She did not experience associated nausea, photophobia or phonophobia. She is not taking any medication for her headaches. Her paresthesias diminished and after receiving physical therapy in the spring 2024, the paresthesias resolved for about 3 months. However, over recent weeks she has had recurrence of the paresthesias primarily occurring in the lower extremities at the bilateral knee level and below. She describes the discomfort in her extremities as a vague tightness and tingling sensation. Methocarbamol was of modest benefit however she is not using this medication regularly. She denies having low back pain. She has had neck pain since 2022 and had experienced some paresthesias in the upper extremities. Her upper extremity paresthesias have subsided and her neck pain has diminished though remains continuous. She is seeing an orthopedic surgeon regarding right shoulder pain and left knee pain. She has a left ACL ganglion cyst and a partially ruptured left knee Brumfield's cyst noted on a left knee MRI. She has right shoulder tendon and joint pathology noted on her right shoulder MRI. She has anxiety and anxiety appears to amplify her paresthesias. She was evaluated by another neurologist. A head MRI and head MRV were normal. A cervical spine MRI revealed multilevel degenerative joint/disc disease causing slight impingement of the cord and multilevel bony foraminal narrowing superimposed on developmental cervical canal stenosis. She was prescribed gabapentin however this was not of benefit and was discontinued. She takes doxepin for insomnia. She denies having any vision change. Cervical spine x-rays reveal multilevel degenerative joint disease and straightening of the normal cervical lordosis. She denies having any history of headaches prior to her RSV vaccine in 2022. A lumbar CT scan in August 2024 revealed multilevel disc bulging and lumbar spondylosis; foraminal narrowing was greatest on the left at L4-5; no high-grade central canal stenosis was noted; the bones appeared osteopenic. An old T12 compression fracture was noted. Past Medical History: As above. There is no history of diabetes mellitus, heart disease, lung disease, stroke, seizure, thyroid disease, cancer, renal disease, sleep apnea, or hyperlipidemia. About 3 weeks ago she woke from sleep and noted a right periorbital subcutaneous bruise. She does not have any history of trauma producing this. She has been taking aspirin 81 mg 1/2 tablet daily. She does not know the medical indication for which aspirin was recommended. She denies any history of stroke or heart disease. Social History: She quit smoking tobacco about 5 years ago. There is no history of alcohol abuse or illicit drug use. Family History: The patient's mother and brother had strokes. There is no family history of seizure, cerebral aneurysm or headache. Review of Systems: As above. The patient has not had any recent fever, rash, chest pain, shortness of breath, gastrointestinal problems or urinary problems. She has gained several pounds over the past year. She denies having depression. She has anxiety. She has insomnia; this has improved with the use of doxepin. Physical Exam: General: Well-developed, well-nourished female in no acute distress. Neuro: The patient is awake and alert and responds appropriately; speech is fluent; language function is within normal limits Cranial nerves: PERRL, 3mm bilaterally; EOMI; visual godinez are full; visual acuity is 20/30 bilaterally; face is symmetrical; tongue is midline; there are no deficits to pinprick over the face or occipital head region Cerebellar system: No nystagmus or dysmetria Deep tendon reflexes: +2 at the knees, biceps bilaterally, triceps bilaterally, and brachioradialis bilaterally and absent (more content not included)... Normal [facility] Lower Ext Joint Only (Routin e)on 03-18-2025 Lower Ext Joint Only (Routine) [facility] Imaging Services [address] [place] [address] Lower Ext Joint Only (Routine) MR#: [id number] Acct: [id number] Name: GIOVANNA NATION Rep #: [id number] : 1960 F 64 From: Mohit Hinds MD PCP: Dr. Leonarda Boykin MD Status: REG CLI Study: Lower Ext Joint Only (Routine) Date of Exam: 0 03/18/25 Exam# [id number] Ordering Dr: Juliano Alatorre MD PROCEDURE: LOWER EXT JOINT ONLY (ROUTINE) 03/18/2025 REASON FOR EXAM: PAIN, MEDIAL SIDE ? MM TEAR, MILD OA TECHNIQUE: Procedure Code: MRILEJ Modality: MR Procedure: LOWER EXT JOINT ONLY (ROUTINE) Multiplanar and multisequence images were obtained without IV contrast administration. COMPARISON: COMPARISON : None FINDINGS: Femorotibial: There is genu recurvatum. There is no positive MR drawer sign. Proximal tibiofibular congruency is maintained. Small knee joint effusion with fluid decompressing into the suprapatellar bursa. No hemarthrosis or lipohemarthrosis seen. Patellofemoral: Patellar height is slight [place]. Axial patellofemoral alignment is anatomic. The femoral trochlea is well formed without dysplasia. The patellar retinacula are intact. No thickened medial parapatellar plica. Bone marrow: Bone marrow is unremarkable for the patient's age. No evidence of red marrow reconversion. No suspicious bone lesion is seen. No bone marrow edema to suggest an acute osseous injury. Hyaline cartilage: Articular cartilage at the femorotibial joints is preserved. There is no visible full-thickness articular cartilage loss or significant chondromalacia seen. Patellofemoral cartilage appears preserved without evidence of full-thickness articular cartilage loss seen. Extensor mechanism: The extensor mechanism is intact. Fat pad: There is mild edema along the free edge of Hoffa's fat pad. No cyclops lesion. Bursa: No prepatellar bursitis. No superficial or significant deep infrapatellar bursitis. No pes anserinus bursitis. Soft tissues: There is a partially decompressed 7 cm Brumfield's cyst in the popliteal fossa with fluid extending inferior to the level of imaging along the posteromedial calf. Mild soft tissue edema is seen within the popliteal fossa. No other fluid collection is seen around the knee. Muscle: Muscle quality is preserved. There is no asymmetric atrophy. No appearance of acute muscle strain. Cruciate ligaments: The anterior cruciate ligament is intact, however there is fluid signal between fibers of the posterior proximal anterior cruciate ligament over a length of 2.1 cm consistent with partial ganglion transformation. The posterior cruciate ligament is intact. Collateral ligaments: The medial collateral ligament is intact. The lateral collateral ligament, popliteus tendon origin, biceps femoris attachment and iliotibial bands are intact. Lateral meniscus: The lateral meniscus is not discoid. There is no lateral meniscal tear. Lateral meniscal roots are intact. Lateral meniscal fascicular attachments are maintained. Medial meniscus: The medial meniscus is morphologically within normal limits. No medial meniscal tear is seen. Medial meniscal roots are intact. No MR evidence of medial meniscal capsular separation. MRI/Lower Ext Joint Only (Routine) IMPRESSION: Partially ruptured 7 cm Brumfield's cyst in the popliteal fossa. - The knee is held in genu recurvatum. - Mild fluid signal within the posterior proximal ACL fibers consistent with partial ACL ganglion formation. - There is no meniscal tear. - Other findings discussed above in detail. Reading Location: [facility] CC: Dr. Leonarda Boykin MD; Dr. Juliano Alatorre MD [employer] Bookkeeper: Signed Normal [facility] Upper Ext Joint Only(Routine )on 03-18-2025 Upper Ext Joint Only(Routine) [facility] Imaging Services [address] [place] [address] Upper Ext Joint Only(Routine) MR#: [id number] Acct: [id number] Name: GIOVANNA NATION Rep #: [id number] : 1960 F 64 From: Sreekanth loera MD PCP: Dr. Leonarda Boykin MD Status: REG CLI Study: Upper Ext Joint Only(Routine) Date of Exam: 0 03/18/25 Exam# [id number] Ordering Dr: Juliano Alatorre MD PROCEDURE: UPPER EXT JOINT ONLY(ROUTINE) 03/18/2025 REASON FOR EXAM: PAIN, FAILED PT, ONGOIGN PAIN. TECHNIQUE: Procedure Code: MRIUEJ Modality: MR Procedure: UPPER EXT JOINT ONLY(ROUTINE) Multiplanar and multisequence images were obtained without IV contrast administration. COMPARISON: none FINDINGS: The supraspinatus tendon shows intrasubstance high signal abutting its articular surface. No evidence of complete fibers interruption. Thickening and intrasubstance high signal of the subscapularis tendon. No evidence of complete fibers interruption. The teres minor and infraspinatus tendons appear intact. High signal of the intra-articular segment of the long head of biceps tendon. High signal of the bicipital labral anchor, possibly degenerative. No obvious glenoid labral tears. Degenerative arthropathic changes of the acromioclavicular joint evident by marginal osteophytic lipping, cortical irregularities, pseudocystic changes and subcortical marrow edema of its opposing articular surfaces with hypertrophied edematous joint capsule inducing subacromial impingement. Intact glenohumeral joint. Mild glenohumeral joint effusion Minimal fluid signal distending the subcoracoid and subacromial/subdeltoid bursa. Focal cortical irregularities and subcortical pseudocysts humeral head/greater tuberosity. No marrow infiltrative lesions. The neurovascular bundles appear unremarkable. 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 Supraspinatus tendonitis with partial thickness tear. Subscapularis tendonitis. Tendonitis of the long head of biceps tendon. Mild glenohumeral joint effusion with subcoracoid and subacromial/subdeltoid bursitis. Reading Location[facility] CC: Dr. Leonarda Boykin MD; Dr. Juliano Alatorre MD [employer] Bookkeeper: Signed Normal [facility] Basic metabolic 2000 panelon 03-05-2025 Anion gap [Moles/Vol] 7 mmol/L Low 10 - 20 mmol/L [facility] Calcium [Mass/Vol] 9.3 mg/dL 8.6 - 10. 3 mg/dL [facility] Chloride [Moles/Vol] 104 mmol/L 98 - 107 mmol/L [facility] CO2 [Moles/Vol] 32 mmol/L 21 - 32 mmol/L [facility] Creatinine [Mass/Vol] 0.63 mg/dL 0.50 - 1.05 mg/dL [facility] eGFR - PINF [facility] Comment on above: Calculations of luis mated GFR are performed using the 2020 CKD-EPI Study Refit equation without the race variable for the IDMS-Traceable creatinine methods. https://jasn.asnjournals.org/content//ASN.704358930 8 Glucose [Mass/Vol] 98 mg/dL 74 - 99 mg/dL [facility] Interpretation and review of laboratory results Abnormal [facility] Potassium [Moles/Vol] 3.4 mmol/L Low 3.5 - 5.3 mmol/L [facility] Sodium [Moles/Vol] 140 mmol/L 136 - 145 mmol/L [facility] Urea nitrogen [Mass/Vol] 15 mg/dL 6 - 23 mg/dL [facility] Anion gap [Moles/Vol] 7 mmol/L Low 10-20 [facility] Comment on above: Performed By: #### 2 4321-2 #### JANESSA ORNELAS ([id number]) [facility] ([facility]) [address] [place] [address] 63570 Calcium [Mass/Vol] 9.3 mg/dL Normal 8.6-10.3 [facility] Comment on above: Performed By: #### 2 4321-2 #### JANESSA ORNELAS ([id number]) [facility] ([facility]) [address] [place] [address] 25790 Chloride [Moles/Vol] 104 mmol/L Normal 98-107 [facility] Comment on above: Performed By: #### 2 4321-2 #### JANESSA ORNELAS ([id number]) [facility] ([facility]) [address] [place] [address] 99350 CO2 [Moles/Vol] 32 mmol/L Normal 21-32 [facility] Comment on above: Performed By: #### 2 4321-2 #### JANESSA ORNELAS ([id number]) [facility] ([facility]) [address] [place] [address] 11797 Creatinine [Mass/Vol] 0.63 mg/dL Normal 0.50-1.05 [facility] Comment on above: Performed By: #### 2 4321-2 #### JANESSA ORNELAS ([id number]) [facility] ([facility]) [address] [place] [address] 69425 Glomerular filtration rate >90 Normal >60 [facility] Comment on above: Result Comment: Calc ulations of estimated GFR are performed using the 2020 CKD-EPI Study Refit equation without the race variable for the IDMS-Traceable creatinine methods. https://jasn.asnjournals.org/content//ASN.508686462 8 Performed By: #### 2 4321-2 #### JANESSA ORNELAS ([id number]) [facility] ([facility]) [address] [place] [address] 40435 Glucose [Mass/Vol] 98 mg/dL Normal 74-99 [facility] Comment on above: Performed By: #### 2 4321-2 #### JANESSA ORNELAS ([id number]) [facility] ([facility]) [address] [place] [address] 07832 Potassium [Moles/Vol] 3.4 mmol/L Low 3.5-5.3 [facility] Comment on above: Performed By: #### 2 4321-2 #### JANESSA ORNELAS ([id number]) [facility] ([facility]) [address] [place], [place] [address] Sodium [Moles/Vol] 140 mmol/L Normal 136-145 [facility] Comment on above: Performed By: #### 2 4321-2 #### JANESSA ORNELAS ([id number]) [facility] ([facility]) [address] [place], [place] [address] Urea nitrogen [Mass/Vol] 15 mg/dL Normal 6-23 [facility] Comment on above: Performed By: #### 2 4321-2 #### JANESSA ORNELAS ([id number]) [facility] ([facility]) [address] [place], [place] [address] CBC W Auto Differential pane l (Bld)on 03-05-2025 Basophils (Bld) [#/Vol] 0.04 10*3/uL [facility] Basophils/100 WBC (Bld) 0.7 % 0.0 - 2.0 % [facility] Eosinophils (Bld) [#/Vol] 0.08 10*3/uL [facility] Eosinophils/100 WBC (Bld) 1.4 % 0.0 - 6.0 % [facility] Erythrocyte distribution width (RBC) [Ratio] 11.8 % 11.5 - 14.5 % [facility] Hematocrit (Bld) [Volume fraction] 37.7 % 36.0 - 46.0 % [facility] Hemoglobin (Bld) [Mass/Vol] 12.8 g/dL 12.0 - 16.0 g/dL [facility] Immature granulocytes (Bld) [#/Vol] 0.01 10*3/uL [facility] Immature granulocytes/100 WBC (Bld) 0.2 % 0.0 - 0.9 % [facility] Comment on above: Immature Granulocyte Count (IG) includes promyelocytes, myelocytes and metamyelocytes but does not include bands. Percent differential counts (%) should be interpreted in the context of the absolute cell counts (cells/UL). Lymphocytes (Bld) [#/Vol] 1.95 10*3/uL [facility] Lymphocytes/100 WBC (Bld) 34.1 % 13.0 - 44.0 % [facility] MCH (RBC) [Entitic mass] 30.9 pg 26.0 - 34.0 pg [facility] MCHC (RBC) [Mass/Vol] 34.0 g/dL 32.0 - 36.0 g/dL [facility] MCV (RBC) [Entitic vol] 91 fL 80 - 100 fL [facility] Monocytes (Bld) [#/Vol] 0.52 10*3/uL [facility] Monocytes/100 WBC (Bld) 9.1 % 2.0 - 10.0 % [facility] Neutrophils (Bld) [#/Vol] 3.12 10*3/uL [facility] Comment on above: Percent differential counts (%) should be interpreted in the context of the absolute cell counts (cells/uL). Neutrophils/100 WBC (Bld) 54.5 % 40.0 - 80.0 % [facility] Nucleated RBC/100 WBC (Bld) [Ratio] 0.0 % [facility] Platelets (Bld) [#/Vol] 228 10*3/uL [facility] RBC (Bld) [#/Vol] 4.14 10*6/uL [facility] WBC (Bld) [#/Vol] 5.7 10*3/uL [facility] Basophils (Bld) [#/Vol] 0.04 x10*3/uL Normal 0.00-0.10 [facility] Comment on above: Performed By: #### 7021-8 #### JANESSA ORNELAS ([id number]) [facility] ([facility]) [address] [place] [address] 11604 Basophils/100 WBC (Bld) 0.7 % Normal 0.0-2.0 [facility] Comment on above: Performed By: #### 7021-8 #### JANESSA ORNELAS ([id number]) [facility] ([facility]) [address] [place] [address] Eosinophils (Bld) [#/Vol] 0.08 x10*3/uL Normal 0.00-0.70 [facility] Comment on above: Performed By: #### 70-8 #### JANESSA ORNELAS ([id number]) [facility] ([facility]) [address] [place] [address] Eosinophils/100 WBC (Bld) 1.4 % Normal 0.0-6.0 [facility] Comment on above: Performed By: #### 70-8 #### JANESSA ORNELAS ([id number]) [facility] ([facility]) [address] [place] [address] Erythrocyte distribution width (RBC) [Ratio] 11.8 % Normal 11.5-14.5 [facility] Comment on above: Performed By: #### 7021-8 #### JANESSA ORNELAS ([id number]) [facility] ([facility]) [address] [place] [address] Hematocrit (Bld) [Volume fraction] 37.7 % Normal 36.0-46.0 [facility] Comment on above: Performed By: #### 7021-8 #### JANESSA ORNELAS ([id number]) [facility] ([facility]) [address] [place] [address] Hemoglobin (Bld) [Mass/Vol] 12.8 g/dL Normal 12.0-16.0 [facility] Comment on above: Performed By: #### 7021-8 #### JANESSA ORNELAS ([id number]) [facility] ([facility]) [address] [place] [address] 64551 Immature granulocytes (Bld) [#/Vol] 0.01 x10*3/uL Normal 0.00-0.70 [facility] Comment on above: Performed By: #### 5 7021-8 #### JANESSA ORNELAS ([id number]) [facility] ([facility]) [address] [place] [address] 57404 Immature granulocytes/100 WBC (Bld) 0.2 % Normal 0.0-0.9 [facility] Comment on above: Result Comment: Arlene ture Granulocyte Count (IG) includes promyelocytes, myelocytes and metamyelocytes but does not include bands. Percent differential counts (%) should be interpreted in the context of the absolute cell counts (cells/UL). Performed By: #### 5 7021-8 #### JANESSA ORNELAS ([id number]) [facility] ([facility]) [address] [place] [address] 51942 Lymphocytes (Bld) [#/Vol] 1.95 x10*3/uL Normal 1.20-4.80 [facility] Comment on above: Performed By: #### 5 7021-8 #### JANESSA ORNELAS ([id number]) [facility] ([facility]) [address] [place] [address] 48238 Lymphocytes/100 WBC (Bld) 34.1 % Normal 13.0-44.0 [facility] Comment on above: Performed By: #### 5 7021-8 #### JANESSA ORNELAS ([id number]) [facility] ([facility]) [address] [place] [address] 70764 MCH (RBC) [Entitic mass] 30.9 pg Normal 26.0-34.0 [facility] Comment on above: Performed By: #### 5 7021-8 #### JANESSA ORNELAS ([id number]) [facility] ([facility]) [address] [place] [address] 24132 MCHC (RBC) [Mass/Vol] 34.0 g/dL Normal 32.0-36.0 [facility] Comment on above: Performed By: #### 5 7021-8 #### JANESSA ORNELAS ([id number]) [facility] ([facility]) [address] [place] [address] 92219 MCV (RBC) [Entitic vol] 91 fL Normal 80-100 [facility] Comment on above: Performed By: #### 5 7021-8 #### JANESSA ORNELAS ([id number]) [facility] ([facility]) [address] [place] [address] 04656 Monocytes (Bld) [#/Vol] 0.52 x10*3/uL Normal 0.10-1.00 [facility] Comment on above: Performed By: #### 5 7021-8 #### JANESSA ORNELAS ([id number]) [facility] ([facility]) [address] [place] [address] 13628 Monocytes/100 WBC (Bld) 9.1 % Normal 2.0-10.0 [facility] Comment on above: Performed By: #### 5 7021-8 #### JANESSA ORNELAS ([id number]) [facility] ([facility]) [address] [place] [address] 44415 Neutrophils (Bld) [#/Vol] 3.12 x10*3/uL Normal 1.20-7.70 [facility] Comment on above: Result Comment: Perc ent differential counts (%) should be interpreted in the context of the absolute cell counts (cells/uL). Performed By: #### 5 7021-8 #### JANESSA ORNELAS ([id number]) [facility] ([facility]) [address] [place] [address] 16896 Neutrophils/100 WBC (Bld) 54.5 % Normal 40.0-80.0 [facility] Comment on above: Performed By: #### 5 7021-8 #### JANESSA ORNELAS ([id number]) [facility] ([facility]) [address] [place] [address] 07618 Nucleated RBC/100 WBC (Bld) [Ratio] 0.0 /100 WBCs Normal 0.0-0.0 [facility] Comment on above: Performed By: #### 5 7021-8 #### JANESSA ORNELAS ([id number]) [facility] ([facility]) [address] [place] [address] 38525 Platelets (Bld) [#/Vol] 228 x10*3/uL Normal 150-450 [facility] Comment on above: Performed By: #### 5 7021-8 #### JANESSA ORNELAS ([id number]) [facility] ([facility]) [address] [place] [address] 80490 RBC (Bld) [#/Vol] 4.14 x10*6/uL Normal 4.00-5.20 [facility] Comment on above: Performed By: #### 5 7021-8 #### JANESSA ORNELAS ([id number]) [facility] ([facility]) [address] [place] [address] 90617 WBC (Bld) [#/Vol] 5.7 x10*3/uL Normal 4.4-11.3 [facility] Comment on above: Performed By: #### 5 7021-8 #### JANESSA ORNELAS ([id number]) [facility] ([facility]) [address] [place] [address] 12801 CBC W/Diff, Automatedon 08-2 Absolute Lymph 1.94 X10 3/uL Normal 0.83-4.51 [facility] Comment on above: Performed By: #### L 100.0100 ####[facility] [address] [place], [address] Absolute Neut 3.9 X10 3/uL Normal 2.0-7.7 [facility] Comment on above: Performed By: #### L 100.0100 ####[facility] [address] [place], [address] Basophils/100 WBC (Bld) 0.6 % Normal 0-1 [facility] Comment on above: Performed By: #### L 100.0100 ####[facility] [address] [place], [address] Eosinophils/100 WBC (Bld) 1.7 % Normal 0-5 [facility] Comment on above: Performed By: #### L 100.0100 ####[facility] [address] [place], [address] Erythrocyte distribution width (RBC) [Ratio] 11.7 % Normal 11.6-14.6 [facility] Comment on above: Performed By: #### L 100.0100 ####[facility] [address] [place], [address] Hematocrit (Bld) [Volume fraction] 40.9 % Normal 37-47 [facility] Comment on above: Performed By: #### L 100.0100 ####[facility] [address] [place], [address] Hemoglobin (Bld) [Mass/Vol] 13.8 g/dL Normal 12.0-15.0 [facility] Comment on above: Performed By: #### L 100.0100 ####[facility] [address] [place], [address] IG% 0.200 Normal 0.0-0.9 [facility] Comment on above: Result Comment: IG% - Immature Granulocytes (promyelocytes, myelocytes and metamyelocytes) > 1% indicates that a LEFT SHIFT is Present. Performed By: #### L 100.0100 ####[facility] [address] [place], [address] Lymphocytes/100 WBC (Bld) 29.2 % Normal 19-41 [facility] Comment on above: Performed By: #### L 100.0100 ####[facility] [address] [place], [address] MCH (RBC) [Entitic mass] 30.8 pg Normal 27.0-32.0 [facility] Comment on above: Performed By: #### L 100.0100 ####[facility] [address] [place], [address] MCHC (RBC) [Mass/Vol] 33.7 g/dL Normal 32-36 [facility] Comment on above: Performed By: #### L 100.0100 ####[facility] [address] [place], [address] MCV (RBC) [Entitic vol] 91.3 fL Normal 81-99 [facility] Comment on above: Performed By: #### L 100.0100 ####[facility] [address] [place], [address] Monocytes/100 WBC (Bld) 9.3 % Normal 0-10 [facility] Comment on above: Performed By: #### L 100.0100 ####[facility] [address] [place], [address] Neutrophils/100 WBC (Bld) 59.0 % Normal 47-70 [facility] Comment on above: Performed By: #### L 100.0100 ####[facility] [address] [place], [address] Nucleated RBC (Bld) [#/Vol] 0 10*3/uL Normal 0-5 [facility] Comment on above: Performed By: #### L 100.0100 ####[facility] [address] [place], [address] Platelet mean volume (Bld) [Entitic vol] 10.7 fL Normal 6.2-12.0 [facility] Comment on above: Performed By: #### L 100.0100 ####[facility] [address] [place], [address] Platelets (Bld) [#/Vol] 237 10*3/uL Normal 150-450 [facility] Comment on above: Performed By: #### L 100.0100 ####[facility] [address] [place], [address] RBC (Bld) [#/Vol] 4.48 10*6/uL Normal 4.2-5.4 [facility] Comment on above: Performed By: #### L 100.0100 ####[facility] [address] [place], [address] RDW SD 38.7 fl Normal 35.1-43.9 [facility] Comment on above: Performed By: #### L 100.0100 ####[facility] [address] [place], [address] WBC (Bld) [#/Vol] 6.7 10*3/uL Normal 4.4-11.0 [facility] Comment on above: Performed By: #### L 100.0100 ####[facility] [address] [place], [address] Coagulation surface inducedo n 03-05-2025 aPTT Coag (PPP) [Time] 28 s Normal 26-36 [facility] Comment on above: Order Comment: The A PTT is no longer used for monitoring Unfractionated Heparin Therapy. For monitoring Heparin Therapy, use the Heparin Assay. Performed By: #### 1 4979-9 #### JANESSA ORNELAS ([id number]) [facility] ([facility]) [address] [place], [place] [id number] Coagulation tissue factor in ducedon 03-05-2025 PT Coag (PPP) [Time] 11.2 s Normal 9.8-12.4 [facility] Comment on above: Performed By: #### 5 902-2 #### JANESSA ORNELAS ([id number]) [facility] ([facility]) [address] [place] [id number] No Panel Informationon 03-05 Interpretation and review of laboratory results Normal [facility] PT Coag (PPP) [Time]on 03-05 INR Coag (PPP) [Relative time] 1.0 {INR} 0.9 - 1.1 [facility] INR Coag (PPP) [Relative time] 1.0 Normal 0.9-1.1 [facility] Comment on above: Performed By: #### 5 902-2 #### RIDDLE CECI ([id number]) [facility] ([facility]) [address] [place] [address] Protime-INRon 03-05-2025 PT Coag (PPP) [Time] 11.2 s [facility] aPTTon 03-05-2025 aPTT Coag (PPP) [Time] 28 s [facility] aPTT Coag (PPP) [Time]on The APTT is no longe r used for monitoring Unfractionated Heparin Therapy. For monitoring Heparin Therapy, use the Heparin Assay. [facility] Knee 4 or More Viewson 03-03 Knee 4 or More Views [facility] Imaging Services [address] [place] [address] Knee 4 or More Views MR#: [id number] Acct: [id number] Name: GIOVANNA NATION Rep #: [id number] : 1960 F 64 From: Shi Hernandez MD PCP: Dr. Leonarda Boykin MD Status: DEP AMB Study: Knee 4 or More Views Date of Exam: 03/03/25 Exam# [id number] Ordering Dr: Juliano Alatorre MD PROCEDURE: KNEE 4 OR MORE VIEWS 03/03/2025 REASON FOR EXAM: PAIN AFTER TAKING A WALK TECHNIQUE: KNEE 4 OR MORE VIEWS Laterality: FINDINGS: No evidence of acute fracture or dislocation. The joint spaces are maintained. No knee joint effusion. RAD/Knee 4 or More Views IMPRESSION: No acute osseous abnormality. Reading Location: [id number] CC: Dr. Leonarda Boykin MD; Dr. Juliano Alatorre MD Quickbooks Bookkeeper: Signed Normal [facility] Orthopedic Visit Reporton Orthopedic Visit Report [facility] [address] [place] [address] [address] [place], [place] [id number] OFFICE VISIT Date of Service: 03/03/25 MR#: [id number] Acct: [id number] Name: GIOVANNA NATION Rep #: [id number] : 1960 Provider: Dr. Juliano herrera MD Age/Sex: 64/F [place] [facility] Status: Signed Intake Vital Signs 02/23/25 11:21 [...] fallen in the past year?: Yes (august) [facility] Medical History (Updated 03/03/25 @ 10:41 by [...] reducing pain. 3. Medications What they are: Ctnu-tnr-hfrjdan pain relievers like ibuprofen, naproxen, or acetamin (more content not included)... Normal [facility] Inital Evaluation (1) - PTon 02-24-2025 Inital Evaluation (1) - PT [facility] Physical Therapy [facility] [address] [place] [address] / REHABILITATION SERVICES INITIAL EVALUATION MR#: [id number] Acct: [id number] Name: GIOVANNA NATION Rep #: [id number] : 1960 64 From: Armando Miranda DPT, OCS, CSCS Referring Dr.: VENU Rios Status: REG RCR Insurance: MEDICARE PART A B SELF PAY INSURANCE Patient's Visit Information Visit Information Visit Information: GIOVANNA NATION is a 64 year old F referred to Physical Therapy by VENU Rios with a diagnosis of cervicalgia. Date of Evaluation: 02/24/25 Physical Therapist: Armando Miranda DPT, ANNMARIE, CSCS Visit Plan Frequency: 2x /Week Duration: [...] and it helped. Got in [place]vator [place] and which moved quickly and shook a bit and startled her. neck did not hurt immediately but got sore after that. [place] it a few days later and neck [...] to be FAXED BACK to us at [phone] for Medicare purposes. For Medicare only, by signing this I certify the plan of care. Please let me know if there are questions or concerns regarding this plan of care. Physician Signature: Date: 02/24/25 1153 CC: VENU Rios; Dr. Leonarda Boykin MD EBG Signed Normal [facility] Orthopedic Visit Reporton Orthopedic Visit Report [facility] [address] [place] [address] OFFICE VISIT Date of Service: 02/23/25 MR#: [id number] Acct: [id number] Name: GIOVANNA NATION Rep #: [id number] : 1960 Provider: VENU Rios Age/Sex: 64/F [place] [facility] Status: Signed Intake Vital Signs 12/08/24 06:51 [...] you fallen in the past year?: Yes [facility] Medical History Muscle strain of left hip [...] the cervical (more content not included)... [facility] Visit (FAMDNA ) GIOVANNA NATION ([id number]) 1960 F Date Time Provider Department 02/04/25 9:00 AM LEONARDA BOYKIN During your visit today, we recorded the following information about you: Temperature Pulse Blood pressure Weight 98.6 degrees 71/minute 118/79 47.2 kg Leonarda Boykin MD 02/04/2025 9:41 AM Signed 02/04/2025 Recording using Poxel software for draft documentation of the visit was discussed with the patient/authorized sales and merchandising representative; all questions welcomed and answered. Patient/authorized sales and merchandising representative agreed to proceed HPI: Giovanna Nation [...] Sister suicide Ischemic Heart Disease Brother 60 [place], heavy smoker, Etoh Psychiatry Son Opoid dependency [...] head mo (more content not included)... Normal [facility] XR HIP 3V PELV+ AP/LAT RTon [...] tubal ligatures. No interval change. IMPRESSION: Negative. Quickbooks Bookkeeper: ROSA Transcribe Date/Time: Feb 07 2025 1:50P Dictated by : STEVE ALONZO MD This examination was interpreted and the report reviewed and electronically signed by: STEVE ALONZO MD on Feb 07 2025 1:50PM EST [id number] Normal [facility] CNPNon 12-29-2024 CNPN Telephone (FAMDNA) GIOVANNA NATION ([id number]) 1960 F Date Time Provider Department 12/29/24 LEONARDA BOYKIN During your visit today, we recorded the following information about you: Mitchell Reneedi 12/29/2024 3:25 PM Signed Diana with [facility] is calling Leonarda Boykin MD today to note they received a cover page with a name and MRN requesting reports and the information in not clear on what is exactly needed. Please call to discuss what is needed for this patient from this facility Call back Diana/ Market Research Analyst. [phone] Person calling: Diana Call patient at: on cell [phone] (home) [phone] (cell) Was an appointment scheduled: No Closing statement: Results or non-symptom based questions: Thank you for calling [facility], your call will be returned within the next business day. Vivian Flanagan [facility] La Nena Mack LPN 12/30/2024 9:22 AM [...] - Fully Assessed Reason for Visit: Question [0375] Prescriptions as of 12/30/2024 - meloxicam (MOBIC) [...] 12/29/2024 Noted Resolved MYALGIA AND MYOSITIS NOS [ABK3942] Tobacco use [Z72.0] 10/20/2013 01/07/2020 Depression with [...] Status:Closed by LA NENA MACK on 12/30/24 [facility] CNOVon 12-23-2024 CNOV Office Visit (FAMDNA ) GIOVANNA NATION ([id number]) 1960 F Date Time Provider Department 12/23/24 11:40 AM LEONARDA BOYKIN During your visit today, we recorded the following information about you: Temperature Pulse Blood pressure Weight 99.1 degrees 91/minute 120/72 47.9 kg Height 1.6 m Leonarda Boykin MD 12/23/2024 1:20 PM Signed 12/23/2024 Recording using Poxel software for draft documentation of the visit was discussed with the patient/authorized sales and merchandising representative; all questions welcomed and answered. Patient/authorized sales and merchandising representative agreed to proceed HPI: Giovanna Nation [...] with some discomfort. - ER visit at [facility] on ; X-rays showed no fractures, minimal arthritis. - Follow-up with Dr. Juliano Alatorre, orthopedic designer, who prescribed Meloxicam 7.5 mg BID for [...] of the neck reviewed by Dr. Ríos, data review specialist, who did not recommend surgery but referred to pain management. - Seen by Dr. Castillo, ornamental painter, who suggested a steroid injection; Giovanna hesitant [...] Sister suicide Ischemic Heart Disease Brother 60 [place], heavy smoker, Etoh Psychiatry Son Opoid dependency [...] limb nu (more content not included)... Normal [facility] Orthopedic Visit Reporton Orthopedic Visit Report [facility] [address] [place] [address] OFFICE VISIT Date of Service: 12/17/24 MR#: [id number] Acct: [id number] Name: GIOVANNA NATION Rep #: [id number] : 1960 Provider: Dr. Juliano herrera MD Age/Sex: 64/F [place] [facility] Status: Signed Intake Vital Signs 12/08/24 06:51 [...] by me, Dr. Juliano Alatorre MD 12/17/24 0971. Part of today???s visit was documented by [ ], acting as scribe. GIOVANNA NATION is a 64 year old F here today for 2 wks FU L groin pain. Was in ED. xrays show min OA. was previously seeing a spine provider. last week, sunday evening. here with her good friend Mango. anterior groin pain, spontaneous. feeling a bit better. 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 worse to stand up and put weight. ok to forward flex. just with standing up straight then makes it worse. no narcotic use. somewhat thigh pain but no numbness or tingling or weakness. no loss of control bowel or bladder. Supplemental Info [facility] Imaging Services [address] [place] [address] HIP, UNI W/ Pelvis 2-3 Views MR#: [id number] Acct: [id number] Name: GIOVANNA NATION Rep #: [id number] : 1960 F 64 From: Luis Alberto Ruth MD PCP: Dr. Leonarda Boykin MD Status: REG ER Study: HIP, UNI W/ Pelvis 2-3 Views Date of Exam: 12/08/24 Exam# [id number] Ordering Dr: Sheng Ward MD PROCEDURE: HIP, [...] IMPRESSION: No fracture or dislocation. Reading Location: [id number] I independently reviewed the imaging. Concur with [...] ice anti-inflam (more content not included)... Normal [facility] CBC W/Diff, Automatedon 05-2 Absolute Lymph 1.64 X10 3/uL Normal 0.83-4.51 [facility] Comment on above: Performed By: #### L 500.4050, L100.0100, L101.9900 #### [facility] Laboratory [address] [place], [address] Absolute Neut 2.1 X10 3/uL Normal 2.0-7.7 [facility] Comment on above: Performed By: #### L 500.4050, L100.0100, L101.9900 #### [facility] [address] [place], [address] Basophils/100 WBC (Bld) 1.1 % High 0-1 [facility] Comment on above: Performed By: #### L 500.4050, L100.0100, L101.9900 #### [facility] [address] [place], [address] Eosinophils/100 WBC (Bld) 4.8 % Normal 0-5 [facility] Comment on above: Performed By: #### L 500.4050, L100.0100, L101.9900 #### [facility] [address] [place], [address] Erythrocyte distribution width (RBC) [Ratio] 11.4 % Low 11.6-14.6 [facility] Comment on above: Performed By: #### L 500.4050, L100.0100, L101.9900 #### [facility] [address] [place], [address] Hematocrit (Bld) [Volume fraction] 37.9 % Normal 37-47 [facility] Comment on above: Performed By: #### L 500.4050, L100.0100, L101.9900 #### [facility] [address] [place], [address] Hemoglobin (Bld) [Mass/Vol] 12.7 g/dL Normal 12.0-15.0 [facility] Comment on above: Performed By: #### L 500.4050, L100.0100, L101.9900 #### [facility] [address] [place], [address] IG% 0.400 Normal 0.0-0.9 [facility] Comment on above: Result Comment: IG% - Immature Granulocytes (promyelocytes, myelocytes and metamyelocytes) > 1% indicates that a LEFT SHIFT is Present. Performed By: #### L 500.4050, L100.0100, L101.9900 #### [facility] [address] [place], [address] Lymphocytes/100 WBC (Bld) 35.9 % Normal 19-41 [facility] Comment on above: Performed By: #### L 500.4050, L100.0100, L101.9900 #### [facility] [address] [place], [address] MCH (RBC) [Entitic mass] 31.1 pg Normal 27.0-32.0 [facility] Comment on above: Performed By: #### L 500.4050, L100.0100, L101.9900 #### [facility] [address] [place], [address] MCHC (RBC) [Mass/Vol] 33.5 g/dL Normal 32-36 [facility] Comment on above: Performed By: #### L 500.4050, L100.0100, L101.9900 #### [facility] [address] [place], [address] MCV (RBC) [Entitic vol] 92.7 fL Normal 81-99 [facility] Comment on above: Performed By: #### L 500.4050, L100.0100, L101.9900 #### [facility] [address] [place], [address] Monocytes/100 WBC (Bld) 12.7 % High 0-10 [facility] Comment on above: Performed By: #### L 500.4050, L100.0100, L101.9900 #### [facility] [address] [place], [address] Neutrophils/100 WBC (Bld) 45.1 % Low 47-70 [facility] Comment on above: Performed By: #### L 500.4050, L100.0100, L101.9900 #### [facility] [address] [place], [address] Nucleated RBC (Bld) [#/Vol] 0 10*3/uL Normal 0-5 [facility] Comment on above: Performed By: #### L 500.4050, L100.0100, L101.9900 #### [facility] [address] [place], [address] Platelet mean volume (Bld) [Entitic vol] 9.0 fL Normal 6.2-12.0 [facility] Comment on above: Performed By: #### L 500.4050, L100.0100, L101.9900 #### [facility] [address] [place], [address] Platelets (Bld) [#/Vol] 294 10*3/uL Normal 150-450 [facility] Comment on above: Performed By: #### L 500.4050, L100.0100, L101.9900 #### [facility] [address] [place], [address] RBC (Bld) [#/Vol] 4.09 10*6/uL Low 4.2-5.4 [facility] Comment on above: Performed By: #### L 500.4050, L100.0100, L101.9900 #### [facility] [address] [place], [address] RDW SD 38.1 fl Normal 35.1-43.9 [facility] Comment on above: Performed By: #### L 500.4050, L100.0100, L101.9900 #### [facility] [address] [place], [address] WBC (Bld) [#/Vol] 4.6 10*3/uL Normal 4.4-11.0 [facility] Comment on above: Performed By: #### L 500.4050, L100.0100, L101.9900 #### [facility] [address] [place], [address] Comprehensive Metabolic Prof [facility] 12-08-2024 Albumin [Mass/Vol] 3.9 g/dL Normal 3.4-4.8 [facility] Comment on above: Performed By: #### L 500.4050, L100.0100, L101.9900 #### [facility] [address] [place], [address] Albumin/Globulin [Mass ratio] 1.5 {ratio} Normal 0.9-2.4 [facility] Comment on above: Performed By: #### L 500.4050, L100.0100, L101.9900 #### [facility] [address] [place], [address] ALK PHOS 67 U/L Normal 35-104 [facility] Comment on above: Performed By: #### L 500.4050, L100.0100, L101.9900 #### [facility] [address] [place], [address] ALT [Catalytic activity/Vol] 20 U/L Normal <=34 [facility] Comment on above: Performed By: #### L 500.4050, L100.0100, L101.9900 #### [facility] [address] [place], [address] AST [Catalytic activity/Vol] 30 U/L Normal <=31 [facility] Comment on above: Performed By: #### L 500.4050, L100.0100, L101.9900 #### [facility] [address] [place], [address] Bilirubin [Mass/Vol] 0.33 mg/dL Normal 0.00-1.30 [facility] Comment on above: Performed By: #### L 500.4050, L100.0100, L101.9900 #### [facility] [address] [place], [address] BUN/CRE 14.7 RATIO Normal 10-20 [facility] Comment on above: Performed By: #### L 500.4050, L100.0100, L101.9900 #### [facility] [address] [place], [address] Calcium [Mass/Vol] 9.1 mg/dL Normal 7.6-11.0 [facility] Comment on above: Performed By: #### L 500.4050, L100.0100, L101.9900 #### [facility] [address] [place], [address] Chloride [Moles/Vol] 106 mmol/L Normal 98-108 [facility] Comment on above: Performed By: #### L 500.4050, L100.0100, L101.9900 #### [facility] [address] [place], [address] CO2 [Moles/Vol] 27.7 mmol/L Normal 21.0-32.0 [facility] Comment on above: Performed By: #### L 500.4050, L100.0100, L101.9900 #### [facility] [address] [place], [address] Creatinine [Mass/Vol] 0.65 mg/dL Low 0.70-1.20 [facility] Comment on above: Performed By: #### L 500.4050, L100.0100, L101.9900 #### [facility] [address] [place], [address] ECRCL 52.79 ml/min Normal 50-250 [facility] Comment on above: Performed By: #### L 500.4050, L100.0100, L101.9900 #### [facility] [address] [place], [address] GAP 9 Normal 5-15 [facility] Comment on above: Performed By: #### L 500.4050, L100.0100, L101.9900 #### [facility] [address] [place], [address] GFR/1.73 sq M.predicted among non-blacks MDRD (S/P/Bld) [Vol rate/Area] 98 mL/min/{1.73_m2} Normal >60 [facility] Comment on above: Result Comment: mL/m in/1.73m2 CKD-EPI Creatinine Equation (2020) Performed By: #### L 500.4050, L100.0100, L101.9900 #### [facility] [address] [place], [address] Globulin (S) [Mass/Vol] 2.6 g/dL Normal 2.2-4.2 [facility] Comment on above: Performed By: #### L 500.4050, L100.0100, L101.9900 #### [facility] [address] [place], [address] Glucose [Mass/Vol] 95 mg/dL Normal 70-99 [facility] Comment on above: Performed By: #### L 500.4050, L100.0100, L101.9900 #### [facility] [address] [place], [address] Potassium [Moles/Vol] 3.4 mmol/L Normal 3.3-5.1 [facility] Comment on above: Performed By: #### L 500.4050, L100.0100, L101.9900 #### [facility] [address] [place], [address] Sodium [Moles/Vol] 143 mmol/L Normal 133-145 [facility] Comment on above: Performed By: #### L 500.4050, L100.0100, L101.9900 #### [facility] [address] [place], [address] T PROT 6.4 g/dL Normal 5.9-8.4 [facility] Comment on above: Performed By: #### L 500.4050, L100.0100, L101.9900 #### [facility] [address] [place], [address] Urea nitrogen [Mass/Vol] 10 mg/dL Normal 4-19 [facility] Comment on above: Performed By: #### L 500.4050, L100.0100, L101.9900 #### [facility] [address] [place], [address] Emergency Department Summary on 12-08-[address] [facility] Department [address] [place] [address] Emergency Department Summary 12/08/24 MR#: [id number] Acct: [id number] Name: GIOVANNA NATION Rep #: [id number] : 1960 64 From: Sheng Ward MD [...] similar symptoms: No Recent Illness/[facility] : [facility] Medical History Post-menopausal Hypertension Impingement of right [...] 148/81 H (more content not included)... Normal [facility] Erythrocyte Sed Rateon 12-08 SED RATE 5 mm/hr Normal 0-30 [facility] Comment on above: Performed By: #### L 500.4050, L100.0100, L101.9900 ####[facility] [id number] [place], [address] HIP, UNI W/ Pelvis 2-3 Views on 12-08-2024 HIP, UNI W/ Pelvis 2-3 Views [facility] Imaging Services [address] [place] [address] HIP, UNI W/ Pelvis 2-3 Views MR#: [id number] Acct: [id number] Name: GIOVANNA NATION Rep #: [id number] : 1960 F 64 From: Luis Alberto Ruth MD PCP: Dr. Leonarda Boykin MD Status: REG ER Study: HIP, UNI W/ Pelvis 2-3 Views Date of Exam: Exam# [id number] Ordering Dr: Sheng Ward MD PROCEDURE: HIP, [...] IMPRESSION: No fracture or dislocation. Reading Location: [id number] CC: Dr. Leonarda Boykin MD; Dr. Sheng Ward MD Quickbooks Bookkeeper: Signed Normal [facility] Re-Evaluation - PT (1)on Re-Evaluation - PT (1) [facility] Physical Therapy [address] [place] [address] / REEVALUATION / MEDICARE RECERTIFICATION PHYSICAL THERAPY MR#: [id number] Acct: [id number] Name: GIOVANNA NATION Rep #: [id number] : 1960 64 From: Armando Miranda DPT, [...] out of the ordinary yesterday. Drove to [place]. Neck pain over the last week 01/22. [...] do not hesitate to contact me at [phone] by phone or if you have questions or concerns regarding this new plan of care! Sincerely, ARIANA SalinasT, OCS, CSCS 11/28/24 1059 CC: Dr. Derrell Hollingsworth MD; No Primary Care Physician EBG Signed For Medicare only, by signing this I certify the plan of care. Physicians Signature Date Normal [facility] T4 Total, Thyroxinon 025 T4 [Mass/Vol] 6.0 ug/dL Normal 4.8-13.9 [facility] Comment on above: Performed By: #### L 810.9520, L59310 ####[facility] [address] [place], [address] Thyroid Stim Hormone (TSH)on 11-25-2024 TSH 0.998 uIU/mL Normal 0.300-4.200 [facility] Comment on above: Performed By: #### L 501.9520, L501.9310 ####[facility] [id number] [place], [address] [facility] 11-17-2024 CNPN Telephone (FAMDNA) GIOVANNA NATION ([id number]) 1960 F Date Time Provider Department 11/17/24 LEONARDA BOYKIN During your visit today, we recorded the following information about you: Margaret Mehta 11/17/2024 1:26 PM Signed Patient is calling to request a referral to a Gastro provider, and asked if the referral once placed can be faxed to his office. To: Dr. Davidson Mack Phone number - [phone] Fax number - [phone] Masha [facility] Vivian 11/17/2024 2:08 PM Signed Please advise patient when this order has been faxed, she can be reached at [phone] Leonarda Boykin MD 11/18/2024 12:16 PM Signed No problem but need to know what the referral is for? Why does she need to see a gastro doc? La Nena Mack LPN 11/18/2024 12:37 PM Signed LM for patient to call the office to let us know why she is needs the referral. La Nena Mack LPN [facility] 11/18/2024 1:20 PM Signed Patient calling back to explain she suffer from constipation and unable to completely empty her bowel and has black stool Transferred to nurse triage Essence Hoover, GLEN 11/18/2024 2:04 PM Signed Called and spoke [...] schedule with the GI near her in [place] Agreeable to PCP OV if recommended Khushi [...] the referral faxed again or emailed to [email or web address] (this is the GI department. Staci Galo [...] Visit Diagnosis:Black stools [K92.1] Order(s):CONSULT TO GASTROENTEROLOGY [9013] Order #: [id number]: 1 FUTURE Prescriptions as of 11/20/2024 - [...] 11/17/2024 Noted Resolved MYALGIA AND MYOSITIS NOS [LTU9431] Tobacco use [Z72.0] 10/20/2013 01/07/2020 Depression with anxiety [F41.8] 11/19/2015 03/17/2021 Closed fracture of distal end of left radius [S*08/21/2016 07/02/2018 Shoulder stiffness [M25.619] 11/16/2016 Radiculopathy, cervical region [M54.12] 01/08 (more content not included)... Normal [facility] Inital Evaluation (1) - PTon 11-05-2024 Inital Evaluation (1) - PT [facility] Physical Therapy [facility] [address] [place] [address] [address] [place] [address] / REHABILITATION SERVICES INITIAL EVALUATION MR#: [id number] Acct: [id number] Name: GIOVANNA NATION Rep #: [id number] : 1960 63 From: Armando Miranda DPT, OCS, CSCS Referring Dr.: Dr. Derrell Hollingsworth MD Status: REG RCR Insurance: MEDICARE PART A B SELF PAY INSURANCE Patient's Visit Information Visit Information Visit Information: GIOVANNA NATION is a 63 year old F referred to Physical Therapy by Dr. Derrell Hollingsworth MD with a diagnosis of neck pain. Date of Evaluation: 11/05/24 Physical Therapist: Armando Miranda DPT, OCS, CSCS Visit Plan Frequency: 2-3x [...] ret/ext with OP both 10x 3x/day at [facility] Subjective Subjective: GIOVANNA NATION is a 63 [...] this pain before a time or two. 4-6/10 lately in neck. Arm symptoms feel weak [...] improve R rotation with PDM today. - [facility] today Balance/Special Test Scores Oswestry Neck Score: [...] (hot pack): (more content not included)... Normal [facility] Cerv Spine 4 or 5 Viewson Cerv Spine 4 or 5 Views [facility] Services [address] [place], [place] [id number] Cerv Spine 4 or 5 Views MR#: [id number] Acct: [id number] Name: SIDNEYGIOVANNA BORJA Rep #: [id number] : 1960 F 63 From: Luis Alberto Ruth MD PCP: Care Physician,No Primary Status: DEP AMB Study: Cerv Spine 4 or 5 Views Date of Exam: 10/31/24 Exam# [id number] Ordering Dr: Ronda German PROCEDURE: CERV SPINE [...] narrowing C5-6 mild disc space narrowing C6-7: Hddl-nk-fjwiqilm narrowing Not much degree of positional change from neutral to flexion or extension. No instability identified. Visualized apices appear clear. RAD/Cerv Spine 4 or 5 Views IMPRESSION: Multilevel spondylosis/discogenic change as above. Reading Location: [facility] CC: VENU Rios; No Primary Care Physician Quick[employer] Bookkeeper: Signed Normal [facility] Orthopedic Visit Reporton Orthopedic Visit Report [facility] [address] [place] [address] 5 [place] [address] OFFICE VISIT Date of Service: 10/31/24 MR#: [id number] Acct: [id number] Name: GIOVANNA NATION Rep #: [id number] : 1960 Provider: Dr. 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 Derrell Hollingsworth MD 10/31/24 6364. Part of today???s visit was documented by [...] Cervicalgia Plan (more content not included)... Normal [facility] PT D/C Summary (1)on 025 PT D/C Summary (1) [facility] Physical Therapy [facility] [address] [facility] [place] [address] / REHABILITATION SERVICES DISCHARGE SUMMARY MR#: [id number] Acct: [id number] Name: GIOVANNA NATION Rep #: [id number] : 1960 63 From: Armando Miranda DPT, OCS, CSCS Referring DrForeign: OUT OF TOWN DOCTOR Status: REG R [...] is back in legs. [facility] go to [facility]. Pain Pain legs: Pain Intensity (Out of 10): 7 bilat SI: Pain Intensity (Out of 10): 0 neck: Pain Intensity (Out of 10): 7 bilat UE: Pain Intensity (Out of 10): 7 Overall Improvement % Improvement: 60 Objective Objective/Function: Odd symptoms with paitent having difficulty putting them into words just [...] improvement in subjective complaints and will see data review specialist next week. d/c sentence: If there are questions or concerns regarding this patient's physical therapy, please feel free to call me at [phone]. Thank you for the referral of this patient. Sincerely, Armando Miranda, DPT, OCS, CSCS Balance/Gait/Functional tests Balance/Special Test Scores Oswestry Low Back Score: 20 Improvement % Improvement: 60 10/23/24 1356 CC: CARLOTTA ARCHER; No Primary Care Physician EBG Signed Normal [facility] CNOVon 10-03-2024 [facility] Office Visit (FAMDNA ) GIOVANNA NATION ([id number]) 1960 F Date Time Provider Department 10/03/24 4:00 PM LEONARDA BOYKINDNA During your visit today, we recorded the following information about you: Temperature Pulse Respiration Blood pressure 97.5 degrees 86/minute 16/minute 105/67 Weight 46.5 kg Isabel HariniLYNETTE huff 10/03/2024 4:46 PM Signed Shingrix Vaccine(1 of [...] sees psychiatrist [facility] [place] - she wanted to stop strattera and [...] developmental c spine stenosis Doing PT at [facility] for her low back - seems to [...] Sister suicide Ischemic Heart Disease Brother 60 [place], heavy smoker, Etoh Psychiatry Son Opoid dependency [...] azide (HYZAAR) (more content not included)... Normal [facility] CNOVon 09-24-2024 CNOV Office Visit (SOMMERVMN ) GOIVANNA NATION ([id number]) 1960 F Date Time Provider Department 09/24/24 9:00 AM DONNA MCNEIL During your visit today, we recorded the following information about you: Pulse Blood pressure Weight 75/minute 126/76 45.8 kg Donna Mcneil DO 09/24/2024 10:54 AM Signed [facility] Department of Cardiovascular Medicine SECTION [...] 50 MCG, 2,000 UNIT, GUMMIES) cyanocobalamin/thiamine HCl (WELSEY-B-12 ORAL) Take by mouth. gabapentin (NEURONTIN) 100 [...] history of COPD (chronic obstructive pulmonary disease) ([facility]), Coronary artery disease, Diabetes ([facility]), Sleep apnea, or Stroke ([facility]). Past surgical history: has a past surgical [...] toe bra (more content not included)... Normal [facility] CNOVon 09-16-2024 CNOV Office Visit (PODIWS ) GIOVANNA NATION ([id number]) 1960 F Date Time Provider Department 09/16/24 11:00 AM SHI MONTENEGROIWS During your visit today, we recorded the following information about you: Caitlin Tao LPN 09/16/2024 11:57 AM Signed Patient present to office for bilateral foot discoloration and corns. Patient states that she was having neck pain and was going to Physical therapy at [facility] where they were preforming dry needling. Patient states that she feels that physical therapist hit a nerve and is having tingling to all extremities and has since changed physical therapist to [facility] where they questioned if she had [...] had PVR on 08/25/2024. Caitlin Tao LPN Shi Montenegro 09/16/2024 11:57 AM Signed Initial Podiatric Office [...] Sister suicide Ischemic Heart Disease Brother 60 [place], heavy smoker, Etoh Psychiatry Son Opoid dependency [...] Exam: Co (more content not included)... Normal [facility] Germaine 09-15-2024 CNPN Telephone (SPNMED) GIOVANNA NATION ([id number]) 1960 F Date Time Provider Department 09/15/24 CARLOTTA ARCHER SPNMED During your visit today, we recorded the following information about you: Santa Tomlinson MA 09/19/2024 1:50 PM Addendum Received [facility] rehabilitation evaluation will be sent to Dr. Archer 09/16/24 for review and signature and fax to [phone] confirmation received and sent to scanning. Allergies [...] 09/15/2024 Noted Resolved MYALGIA AND MYOSITIS NOS [AQV8972] Tobacco use [Z72.0] 10/20/2013 01/07/2020 Depression with [...] Encounter Status:Closed by SANTA TOMLINSON on 09/15/24 [facility] Inital Evaluation (1) - PTon 09-11-2024 Inital Evaluation (1) - PT [facility] Physical Therapy [address] [place] [address] / REHABILITATION SERVICES INITIAL EVALUATION MR#: [id number] Acct: [id number] Name: GIOVANNA NATION Rep #: [id number] : 1960 63 From: Armando Miranda DPT, OCS, CSCS Referring : CARLOTTA ARCHER Status: REG RCR Insurance: [employer] SELF PAY INSURANCE Patient's Visit Information Visit Information Visit Information: GIOVANNA NATION is a 63 year old F referred to Physical Therapy by CARLOTTA ARCHER with a diagnosis of Myalgias. Date of Evaluation: 09/11/24 Physical Therapist: Armando Miranda, DPT, OCS, CSCS Visit Plan Frequency: 2x [...] Passive ROM and (more content not included)... [facility]UCWSTR ) GIOVANNA NATION ([id number]) 1960 F Date Time Provider Department 09/09/24 12:00 PM KATERIN [facility] During your visit today, we recorded the following information about you: Temperature Pulse Respiration Blood pressure 98.1 degrees 96/minute 18/minute 118/70 Weight 46.1 kg Katerin Ellis, LINK AND LINK KNITTING MACHINE OPERATOR.POLE PEELER 09/09/2024 12:40 PM Signed Subjective HPI Pt [...] Sister suicide Ischemic Heart Disease Brother 60 [place], heavy smoker, Etoh Psychiatry Son Opoid dependency [...] - S (more content not included)... Normal [facility] CNOVon 09-04-2024 CNOV Office Visit (NEURMM ) GIOVANNA NATION ([id number]) 1960 F Date Time Provider Department 09/04/24 4:00 PM CARLOTTA ARCHER NEURMM During your visit today, we recorded the following information about you: Pulse Respiration Blood pressure 82/minute 16/minute 171/96 Carlotta Archer MD 09/06/2024 4:44 PM [facility] Neurological [place] Patient presents with: Follow Up: Headaches/ has [...] Lab Resul (more content not included)... Normal [facility] Germaine 09-03-2024 SUNGN Telephone (FAMDNA) GIOVANNA NATION ([id number]) 1960 F Date Time Provider Department 09/03/24 LEONARDA BOYKIN During your visit today, we recorded the following information about you: Michael Geronimo 09/03/2024 9:27 AM Signed Giovanna is calling Leonarda Boykin MD today with concern regarding Results/ Labs Patient is calling in today for lab results. Patient has been identified by name and birthdate. Duration of symptoms: N/A Person calling: self Call patient at: at home [phone] (home) [phone] (cell) Was an appointment scheduled: No Closing statement: Results or non-symptom based questions: Thank you for calling [facility], your call will be returned within the next business day. Leonarda Kline MD 09/05/2024 10:36 AM Signed Blood work [...] 09/03/2024 Noted Resolved MYALGIA AND MYOSITIS NOS [LMX8551] Tobacco use [Z72.0] 10/20/2013 01/07/2020 Depression with [...] by LA NENA MACK on 09/05/24 Normal [facility] C-REACTIVE PROTEINon 025 CRP [Mass/Vol] mg/dL NINF - 0.9 mg/dL [facility] CK SerPl-cCncon 08-25-2024 CK [Catalytic activity/Vol] 74 U/L Normal 42-196 [facility] Comment on above: Order Comment: Speci men Type: BLOOD SPECIMENOrdering Facility: [facility] Address: [address] [place] [address] Performed By: #### 3 016-3, 6, 1987-11 ####[facility] [id number] [place] [address] [facility] CNOVon 08-25-2024 CNOV Office Visit (FAMDNA ) GIOVANNA NATION ([id number]) 1960 F Date Time Provider Department 08/25/24 [...] Sister suicide Ischemic Heart Disease Brother 60 [place], heavy smoker, Etoh Psychiatry Son Opoid dependency [...] appearing, aler (more content not included)... Normal [facility] CREATINE KINASE/CKon 025 CK [Catalytic activity/Vol] 74 U/L 42 - 196 U/L [facility] CRP SerPl-mCncon 08-25-2024 CRP [Mass/Vol] mg/L Normal <0.9 [facility] Comment on above: Order Comment: Speci men Type: BLOOD SPECIMENOrdering Facility: [facility] Address: [address] [place], [place] [address] [address] Performed By: #### 3 016-3, 2156-12, 1987-11 ####[facility] [id number] [place] [address] [place] Cobalamin (Vitamin B12) [Mas s/Vol]on 08-25-2024 Interpretation and review of laboratory results Abnormal [facility] ESR Westergren method (Bld) [Velocity]on 08-25-2024 ESR (Bld) [Velocity] 2 mm/h Normal 0-20 [facility] Comment on above: Order Comment: Speci men Type: BLOOD SPECIMEN [facility] Address: [address] [place] [address] Performed By: #### 4 537-7 #### [facility] CLIA [id number] [address] [place] [address] [place] [address] [place] No Panel Informationon 08-25 Interpretation and review of laboratory results Normal [facility] PVR LEG DEYA VAS LABon 2024 PVR [facility] Non-Invasive Vascular Laboratory [facility] Lower Extremity Arterial Physiology Study Bilateral/Complete Date of service/time: 08/25/2024 9:12:43 AM Name: MS. GIOVANNA NATION Date of : 1960 Age: 63 [...] Normal at rest. Technologist: Madai Harris RVT, [facility] Ordering physician: MICHAEL FLYNN Interpreting physician: Pratik Kearney MD, AWAIS Final CC [facility] Image : [id number] ISUID See Link below for Image Normal [facility] Reagin and Treponema pallidu m IgG and IgM [Interp]on 08-25-2024 T. pallidum IgG+IgM IA Ql (S) Non-Reactive Normal Nonreactive [facility] Comment on above: Order Comment: Speci men Type: BLOOD SPECIMENOrdering Facility: [facility] Address: [address] [place] [address] Performed By: #### 7 3752-8 ####[facility] LABCLIA [id number] [place] [address] [place] Reagin+T pallidum IgG+IgM Se rPl-Impon 08-25-2024 Reagin and Treponema pallidum IgG and IgM [Interp] Cannot exclude recent Treponemal infection if specimen collected within 7-10 days after appearance of suspect lesions or 2-3 weeks after an exposure. Clinical correlation is required. Normal [facility] Comment on above: Order Comment: Speci men Type: BLOOD SPECIMENOrdering Facility: [facility] Address: [address] [place] [address] Performed By: #### 7 3752-8 ####[facility] LABCLIA [id number] [facility] [place] [address] [place] Rheumatoid fact SerPl-aCncon 08-25-2024 Rheumatoid factor Qn [IU]/mL Normal <16 [facility] Comment on above: Order Comment: Speci men Type: BLOOD SPECIMEN [facility] Address: [address] [place] [address] Performed By: #### 5 7021-8 #### [facility] CLIA [id number] [address] [place] [address] [place] T4 Free SerPl-mCncon 025 Free T4 [Mass/Vol] 1.0 ng/dL Normal 0.9-1.7 [facility] Comment on above: Order Comment: Speci men Type: BLOOD SPECIMEN [facility] Address: [address] [place] [address] Performed By: #### 5 7021-8 #### [facility] CLIA [id number] [address] [place] [address] [place] THYROID STIMULATING HORMONEo n 08-25-2024 TSH Qn 1.15 m[IU]/L [facility] TSH Qnon 08-25-2024 Interpretation and review of laboratory results Normal [facility] TSH SerPl-aCncon 08-25-2024 TSH Qn 1.150 m[IU]/L Normal 0.270-4.200 [facility] Comment on above: Order Comment: Speci men Type: BLOOD SPECIMENOrdering Facility: [facility] Address: [address] [place] [address] Performed By: #### 3 016-3, 2157-6, 1987-11 ####[facility] [id number] [place] [address] [place] VITAMIN B12on 08-25-2024 Cobalamin (Vitamin B12) [Mass/Vol] 1385 pg/mL High 232 - 1245 pg/mL [facility] Vit B12 SerPl-mCncon -10-2 025 Cobalamin (Vitamin B12) [Mass/Vol] 1385 pg/mL High 232-1245 [facility] Comment on above: Order Comment: Speci men Type: BLOOD SPECIMENOrdering Facility: [facility] Address: [address] [place] [address] Performed By: #### 2 132-9 ####[facility] [id number] [place], [place] [address] [place] [address] ALLIED HEALTHon 08-20-2024 [facility] HNO ID: [id number] Author: JELANI AVELAR RT(R) Service: Radiology Author Type: Technologist Type: Allied [...] PATIENT PRESENTS WITH AN IMPLANTABLE OR ATTACHED PHOTO BOOTH OPERATOR: No RADIOLOGY DEPARTMENT: CT; Exam(s) Completed: CTA Aorta/leg runoff PERIPHERAL IV DATA: Site assessment: Clean,Dry and Intact, Site disposition Left in for next appointment SIGNED BY: RT Hemant(R) August 20, 2024 2:38 PM Normal [facility] HNO ID: [id number] Author: MIMI RODRIGUEZ RT(Clem) Service: Radiology Author [...] PATIENT PRESENTS WITH AN IMPLANTABLE OR ATTACHED PHOTO BOOTH OPERATOR: No RADIOLOGY DEPARTMENT: General X-ray: Exam(s) Completed: Spine X-Ray(s): Lumbar AP / LAT / L5-S1 PERIPHERAL IV DATA: Not applicable SIGNED BY: RT Kory(R) August 20, 2024 12:50 PM Normal [facility] CBC W Auto Differential pane l (Bld)on 08-20-2024 Basophils (Bld) [#/Vol] 0.03 10*3/uL Normal <0.11 [facility] Comment on above: Order Comment: Speci men Type: BLOOD SPECIMEN [facility] Address: [address] [place] [address] Performed By: #### 5 7021-8 #### [facility] CLIA [id number] [address] [place] [address] [place] Basophils/100 WBC (Bld) 0.5 % Normal [facility] Comment on above: Order Comment: Speci men Type: BLOOD SPECIMEN [facility] Address: [address] [place] [address] Performed By: #### 5 7021-8 #### [facility] CLIA [id number] [address] [place] [address] [place] Differential cell count method Nom (Bld) Auto Normal [facility] Comment on above: Order Comment: Speci men Type: BLOOD SPECIMEN [facility] Address: [address] [place] [address] Performed By: #### 5 7021-8 #### [facility] CLIA [id number] [address] [place] Eosinophils (Bld) [#/Vol] 0.05 10*3/uL Normal <0.46 [facility] Comment on above: Order Comment: Speci men Type: BLOOD SPECIMEN [facility] Address: [address] [place] [address] Performed By: #### 5 7021-8 #### [facility] CLIA [id number] [address] [place] [address] [place] Eosinophils/100 WBC (Bld) 0.8 % Normal [facility] Comment on above: Order Comment: Speci men Type: BLOOD SPECIMEN [facility] Address: [address] [place] [address] Performed By: #### 5 7021-8 #### [facility] CLIA [id number] [address] [place] [address] [place] Erythrocyte distribution width (RBC) [Ratio] 11.9 % Normal 11.5-15.0 [facility] Comment on above: Order Comment: Speci men Type: BLOOD SPECIMEN [facility] Address: [address] [place] [address] Performed By: #### 5 7021-8 #### [facility] CLIA [id number] [address] [place] Hematocrit (Bld) [Volume fraction] 40.1 % Normal 36.0-46.0 [facility] Comment on above: Order Comment: Speci men Type: BLOOD SPECIMEN [facility] Address: [address] [place] [address] Performed By: #### 5 7021-8 #### [facility] CLIA [id number] [address] [place] Hemoglobin (Bld) [Mass/Vol] 13.3 g/dL Normal 11.5-15.5 [facility] Comment on above: Order Comment: Speci men Type: BLOOD SPECIMEN [facility] Address: [address] [place] [address] Performed By: #### 5 7021-8 #### [facility] CLIA [id number] [address] [place] Immature granulocytes (Bld) [#/Vol] 10*3/uL Normal <0.10 [facility] Comment on above: Order Comment: Speci men Type: BLOOD SPECIMEN [facility] Address: [address] [place] [address] Performed By: #### 5 7021-8 #### [facility] CLIA [id number] [address] Immature granulocytes/100 WBC (Bld) 0.3 % Normal [facility] Comment on above: Order Comment: Speci men Type: BLOOD SPECIMEN [facility] Address: [address] [place] [address] Performed By: #### 5 7021-8 #### [facility] CLIA [id number] [address] [place] Lymphocytes (Bld) [#/Vol] 1.65 10*3/uL Normal 1.00-4.00 [facility] Comment on above: Order Comment: Speci men Type: BLOOD SPECIMEN [facility] Address: [address] [place] [address] Performed By: #### 5 7021-8 #### [facility] CLIA [id number] [address] Lymphocytes/100 WBC (Bld) 26.5 % Normal [facility] Comment on above: Order Comment: Speci men Type: BLOOD SPECIMEN [facility] Address: [address] [place] [address] Performed By: #### 5 7021-8 #### [facility] CLIA [id number] [address] MCH (RBC) [Entitic mass] 31.4 pg Normal 26.0-34.0 [facility] Comment on above: Order Comment: Speci men Type: BLOOD SPECIMEN [facility] Address: [address] [place] [address] Performed By: #### 5 7021-8 #### [facility] CLIA [id number] [address] MCHC (RBC) [Mass/Vol] 33.2 g/dL Normal 30.5-36.0 [facility] Comment on above: Order Comment: Speci men Type: BLOOD SPECIMEN [facility] Address: [address] [place] [address] Performed By: #### 5 7021-8 #### [facility] CLIA [id number] [address] [place] [address] [place] MCV (RBC) [Entitic vol] 94.8 fL Normal 80.0-100.0 [facility] Comment on above: Order Comment: Speci men Type: BLOOD SPECIMEN [facility] Address: [address] [place] [address] Performed By: #### 5 7021-8 #### [facility] CLIA [id number] 1000 [place] [address] [place] Monocytes (Bld) [#/Vol] 0.47 10*3/uL Normal <0.87 [facility] Comment on above: Order Comment: Speci men Type: BLOOD SPECIMEN Ordering Facility: [facility] Address: [address] [place] [address] Performed By: #### 5 7021-8 #### [facility] CLIA [id number] 1000 [place] [address] [place] Monocytes/100 WBC (Bld) 7.6 % Normal [facility] Comment on above: Order Comment: Speci men Type: BLOOD SPECIMEN Ordering Facility: [facility] Address: [address] [place] [address] Performed By: #### 5 7021-8 #### [facility] CLIA [id number] 1000 [place] [address] [place] Neutrophils (Bld) [#/Vol] 4.00 10*3/uL Normal 1.45-7.50 [facility] Comment on above: Order Comment: Speci men Type: BLOOD SPECIMEN Ordering Facility: [facility] Address: [address] [place] [address] Performed By: #### 5 7021-8 #### [facility] CLIA [id number] [address] [place] Neutrophils/100 WBC (Bld) 64.3 % Normal [facility] Comment on above: Order Comment: Speci men Type: BLOOD SPECIMEN Ordering Facility: [facility] Address: [address] [place] [address] Performed By: #### 5 7021-8 #### [facility] CLIA [id number] [address] [place] Nucleated RBC (Bld) [#/Vol] 10*3/uL Normal <0.01 [facility] Comment on above: Order Comment: Speci men Type: BLOOD SPECIMEN Ordering Facility: [facility] Address: [address] [place] [address] Performed By: #### 5 7021-8 #### [facility] CLIA [id number] [address] [place] Nucleated RBC/100 WBC (Bld) [Ratio] 0.0 /100 WBC Normal [facility] Comment on above: Order Comment: Speci men Type: BLOOD SPECIMEN Ordering Facility: [facility] Address: [address] [place] [address] Performed By: #### 5 7021-8 #### [facility] CLIA [id number] [address] [place] Platelet mean volume (Bld) [Entitic vol] 9.0 fL Normal 9.0-12.7 [facility] Comment on above: Order Comment: Speci men Type: BLOOD SPECIMEN Ordering Facility: [facility] Address: [address] [place] [address] Performed By: #### 5 7021-8 #### [facility] CLIA [id number] [address] [place] Platelets (Bld) [#/Vol] 278 10*3/uL Normal 150-400 [facility] Comment on above: Order Comment: Speci men Type: BLOOD SPECIMEN Ordering Facility: [facility] Address: [address] [place] [address] Performed By: #### 5 7021-8 #### [facility] CLIA [id number] [address] [place] RBC (Bld) [#/Vol] 4.23 10*6/uL Normal 3.90-5.20 [facility] Comment on above: Order Comment: Speci men Type: BLOOD SPECIMEN [facility]ing [facility]: [facility] Address: [address] [facility] [place] [place] [address] Performed By: #### 5 7021-8 #### [facility] CLIA [id number] [address] [place] [address] [place] WBC (Bld) [#/Vol] 6.22 10*3/uL Normal 3.70-11.00 [facility] Comment on above: Order Comment: Speci men Type: BLOOD SPECIMEN Ordering Facility: [facility] Address: [address] [place] [address] Performed By: #### 5 7021-8 #### [facility] CLIA [id number] [address] [place] [address] [facility] LUMBAR SPINE W RECON DATA -NBon 08-20-2024 CT LUMBAR SPINE W RECON DATA -NB * * *Final Report* * * DATE OF EXAM: Aug 20 2024 2:44PM [facility] [place] LUMBAR SPINE W RECON [...] the respective and already completed abdomen/pelvis exams. [id number] is optimized for assessment of the spine [...] are 5 lumbar-type vertebrae. Anatomic variant: None. Photoengraving Proofer Apprentice (topogram) images: No additional findings. Alignment: In [...] and assume there are 5 lumbar-type vertebrae. Quickbooks Bookkeeper: [facility]ITALShlomo Transcribe Date/Time: Aug 20 2024 4:59P Dictated by : SONY COOPER MD This examination was interpreted and the report reviewed and electronically signed by: SONY COOPER MD on Aug 20 2024 5:10PM EST [id number] [facility] CTA ABD/PEL/LOWER EXT W IVCO Non 08-20-2024 CTA ABD/PEL/LOWER EXT W IVCON * * *Final Report* * * DATE OF EXAM: Aug 20 2024 2:44PM [facility] [place] CTA ABD/PEL/LOWER EXT W IVCON [...] arteriovascular calcifications, without large vessel significant stenoses. Quickbooks Bookkeeper: ROSA Transcribe Date/Time: Aug 20 2024 4:57P Dictated by : WEI MORRISON MD This examination was interpreted and the report reviewed and electronically signed by: WEI MORRISON MD on Aug 20 2024 5:08PM EST [id number] Normal [facility] Comprehensive metabolic 2000 panelon 08-20-2024 Albumin [Mass/Vol] 4.4 g/dL Normal 3.9-4.9 [facility] Comment on above: Order Comment: Speci men Type: BLOOD SPECIMENOrdering Facility: [facility] Address: [address] [place] [address] Performed By: #### 2 4323-8, ####[facility] [id number] [place] [address] [place] ALP [Catalytic activity/Vol] 83 U/L Normal 34-123 [facility] Comment on above: Order Comment: Speci men Type: BLOOD SPECIMENOrdering Facility: [facility] Address: [address] [place] [address] Performed By: #### 2 4323-, ####[facility] [id number] [place] [address] [place] ALT [Catalytic activity/Vol] 29 U/L Normal 7-38 [facility] Comment on above: Order Comment: Speci men Type: BLOOD SPECIMENOrdering Facility: [facility] Address: [address] [place] [address] Performed By: #### 2 8, ####[facility] [id number] [place] [address] [place] Anion gap [Moles/Vol] 8 mmol/L Normal 8-15 [facility] Comment on above: Order Comment: Speci men Type: BLOOD SPECIMENOrdering Facility: [facility] Address: [address] [place] [address] Performed By: #### 2 8, ####[facility] [id number] [place] [address] [place] AST [Catalytic activity/Vol] 28 U/L Normal 13-35 [facility] Comment on above: Order Comment: Speci men Type: BLOOD SPECIMENOrdering Facility: [facility] Address: [address] [place] [address] Performed By: #### 2 4323-02, ####[facility] [id number] [place] [address] [place] Bilirubin [Mass/Vol] 0.4 mg/dL Normal 0.2-1.3 [facility] Comment on above: Order Comment: Speci men Type: BLOOD SPECIMENOrdering Facility: [facility] Address: [address] [place] [address] Performed By: #### 2 4328, ####[facility] [id number] [place] [id number] [place] Calcium [Mass/Vol] 9.7 mg/dL Normal 8.5-10.2 [facility] Comment on above: Order Comment: Speci men Type: BLOOD SPECIMENOrdering Facility: [facility] Address: [facility] [place] [address] Performed By: #### 2 4323-8, ####[facility] [id number] [place] [id number] [place] Chloride [Moles/Vol] 104 mmol/L Normal 98-107 [facility] Comment on above: Order Comment: Speci men Type: BLOOD SPECIMENOrdering Facility: [facility] Address: [address] [place] [address] Performed By: #### 2 43238, ####[facility] [id number] [place] [address] [place] CO2 [Moles/Vol] 29 mmol/L Normal 22-30 [facility] Comment on above: Order Comment: Speci men Type: BLOOD SPECIMENOrdering Facility: [facility] Address: [address] [place] [address] Performed By: #### 2 43238, ####[facility] [id number] [place] [address] [place] Creatinine [Mass/Vol] 0.61 mg/dL Normal 0.58-0.96 [facility] Comment on above: Order Comment: Speci men Type: BLOOD SPECIMENOrdering Facility: [facility] Address: [address] [place] [address] Performed By: #### 2 43238, ####[facility] [id number] [address] Creatinine and Glomerular filtration rate.predicted panel (S/P/Bld) 100 mL/min/1.73m??? Normal >=60 [facility] Comment on above: Order Comment: Speci men Type: BLOOD SPECIMENOrdering Facility: [facility] Address: [address] [place] [address] Result Comment: Luis mated Glomerular Filtration Rate [...] Performed By: #### 2 4323-8, ####[facility] [id number] [place] [id number] [place] Glucose [Mass/Vol] 98 mg/dL Normal 74-99 [facility] Comment on above: Order Comment: [place] men Type: BLOOD SPECIMENOrdering Facility: [facility] Address: [address] [place], [place] [address] Result Comment: The [place] Diabetes Association (ADA) provides guidance for cutoff [...] Standards of Medical Care in Diabetes 2016, [place] [employer] Association. Diabetes Care. 2016.39(Suppl 1). Performed By: #### 2 4323-8, ####[facility] [id number] [place] [address] [place] Potassium [Moles/Vol] 3.6 mmol/L Low 3.7-5.1 [facility] Comment on above: Order Comment: Collin whittaker Type: BLOOD SPECIMENOrdering Facility: [facility] Address: [address] [place] [address] Performed By: #### 2 4323-8, ####[facility] [id number] [place] [id number] [place] Protein [Mass/Vol] 7.0 g/dL Normal 6.3-8.0 [facility] Comment on above: Order Comment: [place]lin men Type: BLOOD SPECIMENOrdering Facility: [facility] Address: [address] [place], [place] [address] Performed By: #### 2 4323-8, ####[facility] [id number] [place] [id number] [place] Sodium [Moles/Vol] 141 mmol/L Normal 136-144 [facility] Comment on above: Order Comment: Klarissai men Type: BLOOD SPECIMENOrdering Facility: [facility] Address: [address] [place] [address] Performed By: #### 2 4323-8, ####[facility] [id number] [place] [id number] [facility] Urea nitrogen [Mass/Vol] 13 mg/dL Normal 7-21 [facility] Comment on above: Order Comment: Speci men Type: BLOOD SPECIMENOrdering Facility: [facility] Address: [address] [place] [address] Performed By: #### 2 4323-8, ####[facility] [id number] [place] [id number] [facility] ED NOTEon 08-20-2024 ED NOTE HNO ID: [id number] Author: ANNA COBB RN Service: Nursing Author Type: Registered Nurse Type: ED Notes Filed: 08/20/2024 17:47 Note Text: Discharge instructions d/w pt at bedside. Stated understanding with no further questions for this nurse. Encouraged f/u with PCP and referring doctors given. Stated understanding. Prescription(S) were given X0. [facility] ED NOTE HNO ID: [id number] Author: MARJORIE SINGH RN Service: Nursing Author Type: Registered Nurse Type: ED Notes Filed: 08/20/2024 13:51 Note Text: NATALIYA Henry rounds on patient [facility] ED PROV NOTEon 08-20-2024 ED PROV NOTE HNO ID: [id number] Author: JUAN PATHAK DO Service: Emergency Medicine [...] History provided by: Patient and medical records manager talent management used: No PAST MEDICAL HISTORY Diagnosis Date [...] Sister suicide Ischemic Heart Disease Brother 60 [place], heavy smoker, Etoh Psychiatry Son Opoid dependency [...] less th (more content not included)... Normal [facility] ED Triage Noteon 08-20-2024 ED Triage Note HNO ID: [id number] Author: RADHA RANKIN DO Service: Emergency Medicine [...] bedside clinician. SIGNATURE: Radha Rankin, DO Normal [facility] Magnesium SerPl-mCncon 08-20 Magnesium [Mass/Vol] 2.2 mg/dL Normal 1.7-2.3 [facility] Comment on above: Order Comment: Speci men Type: BLOOD SPECIMENOrdering Facility: [facility] Address: [address] [place] [address] Performed By: #### 2 4323-8, 81935-3 ####[facility] [id number] [place] [address] [place] Urinalysis complete panel (U )on 08-20-2024 Bilirubin Ql (U) Negative Normal Negative [facility] Comment on above: Order Comment: Speci men Type: URINE SPECIMENOrdering Facility: [facility] Address: [address] [place] [address] Performed By: #### 2 4356-8 ####[facility] [id number] [address] [place] Clarity (Unsp spec) Clear Normal Clear [facility] Comment on above: Order Comment: Speci men Type: URINE SPECIMENOrdering Facility: [facility] Address: [address] [place] [address] Performed By: #### 2 4356-8 ####[facility] [id number] [address] [place] Color (U) Yellow Normal Yellow [facility] Comment on above: Order Comment: Speci men Type: URINE SPECIMENOrdering Facility: [facility] Address: [address] [place] [address] Performed By: #### 2 4356-8 ####[facility] [id number] [address] [place] Epithelial cells LM.HPF (Urine sed) [#/Area] Few Normal [facility] Comment on above: Order Comment: Speci men Type: URINE SPECIMENOrdering Facility: [facility] Address: [address] [place] [address] Performed By: #### 2 4356-8 ####[facility] [id number] [place] [address] [facility] [place] Glucose Test strip (U) [Mass/Vol] Negative Normal Negative [facility] Comment on above: Order Comment: Speci men Type: URINE SPECIMENOrdering Facility: [facility] Address: [address] [place] [address] Performed By: #### 2 4356-8 ####[facility] [id number] [place] [address] [place] Hemoglobin Ql (U) Negative Normal Negative [facility] Comment on above: Order Comment: Speci men Type: URINE SPECIMENOrdering Facility: [facility] Address: [address] [place] [address] Performed By: #### 2 4356-8 ####[facility] [id number] [place] [address] [place] Ketones Ql (U) Negative Normal Negative [facility] Comment on above: Order Comment: Speci men Type: URINE SPECIMENOrdering Facility: [facility] Address: [address] [place] [address] Performed By: #### 2 4356-8 ####[facility] [id number] [address] Leukocyte esterase Test strip Ql (U) Negative Normal Negative [facility] Comment on above: Order Comment: Speci men Type: URINE SPECIMENOrdering Facility: [facility] Address: [address] [place] [address] Performed By: #### 2 4356-8 ####[facility] [id number] [address] [place] Nitrite Ql (U) Negative Normal Negative [facility] Comment on above: Order Comment: Speci men Type: URINE SPECIMENOrdering Facility: [facility] Address: [address] [place] [address] Performed By: #### 2 4356-8 ####[facility] [id number] [address] pH (U) 7.5 [pH] Normal 5.0-8.0 [facility] Comment on above: Order Comment: Speci men Type: URINE SPECIMENOrdering Facility: [facility] Address: [address] [place] [address] Performed By: #### 2 4356-8 ####[facility] [id number] [address] [place] Protein (U) [Mass/Vol] Negative Normal Negative [facility] Comment on above: Order Comment: Speci men Type: URINE SPECIMENOrdering Facility: [facility] Address: [address] [place] [address] Performed By: #### 2 4356-8 ####[facility] [id number] [address] [place] RBC LM.HPF (Urine sed) [#/Area] 0-3 /HPF Normal 0-3 /HPF [facility] Comment on above: Order Comment: Speci men Type: URINE SPECIMENOrdering Facility: [facility] Address: [address] [place] [address] Performed By: #### 2 4356-8 ####[facility] [id number] [address] Specific gravity (U) [Rel density] 1.010 Normal 1.005-1.030 [facility] Comment on above: Order Comment: Speci men Type: URINE SPECIMENOrdering Facility: [facility] Address: [address] [place] [address] Performed By: #### 2 4356-8 ####[facility] [id number] [address] Urobilinogen Ql (U) 0.2 EU/dL Normal 0.2-1.0 EU/dL [facility] Comment on above: Order Comment: Speci men Type: URINE SPECIMENOrdering Facility: [facility] Address: [address] [place] [address] Performed By: #### 2 4356-8 ####[facility] [id number] [address] WBC LM.HPF (Urine sed) [#/Area] 0-5 /HPF Normal 0-5 /HPF [facility] Comment on above: Order Comment: Speci men Type: URINE SPECIMENOrdering Facility: [facility] Address: [facility] [place] [address] Performed By: #### 2 4356-8 ####[facility] [id number] [place] [id number] [place] XR LUMBAR 3V AP/LAT/L5-S1on [...] endplate degenerative changes in the thoracic spine. Quickbooks Bookkeeper: ROSA Transcribe Date/Time: Aug 20 2024 1:00P Dictated by : JASMYNE HE DO This examination was interpreted and the report reviewed and electronically signed by: JASMYNE HE DO on Aug 20 2024 1:05PM EST [id number] [facility] 08-11-2024 [facility] Telephone (FAMDNA) [place] ([id number]) 1960 F Date Time Provider Department 08/11/24 [...] necessary to take both aspirin and Nifedipine? GLEN Ornelas Denise, MD 08/11/2024 5:03 PM Signed Nifedipine helps with vasospasm. Yes take both. Essence Hoover, GLEN 08/12/2024 9:43 AM Signed Spoke with pt [...] 08/16/2024 8:37 AM Signed Consult placed Bienvenido Smith, GLEN 08/16/2024 9:55 AM Signed Attempted to reach [...] 08/11/2024 Noted Resolved MYALGIA AND MYOSITIS NOS [[id number]] Tobacco use [Z72.0] 10/20/2013 01/07/2020 Depression with [...] Encounter Status:Closed by BIENVENIDO SMITH on 08/16/24 [facility] CNOVon 08-08-2024 CNOV Office Visit (IMMDNA ) [place] ([id number]) 1960 F Date Time Provider Department 08/08/24 4:20 PM MICHAEL FLYNN IMMDNA During your visit today, we recorded the following information about you: Temperature Pulse Respiration Blood pressure 97.4 degrees 74/minute 16/minute 145/83 Weight Height 45.6 kg 1.6 m Michael Flynn MD 08/09/2024 1:52 PM Signed ESTABLISHED PATIENT Giovanna Naiton is a 63 year old female presenting for Follow Up (Feet/toes tingly,burning, calves,ankles). HISTORY OF PRESENT ILLNESS 63 year old female here for an acute appointment for feet/ toe pain She first recalls 3 months ago she noted weakness/discomfort of lateral right lower leg > left lower leg. She took an [employer] board sanding down her feet quite a [...] Sister suicide Ischemic Heart Disease Brother 60 [place], heavy smoker, Etoh Psychiatry Son Opoid dependency [...] 10/17/2019 1 (more content not included)... Normal [facility] CNOVon 07-28-2024 CNOV Office Visit (FAMDNA ) [place] ([id number]) 1960 F Date Time Provider Department 07/28/24 [...] Sister suicide Ischemic Heart Disease Brother 60 [place], heavy smoker, Etoh Psychiatry Son Opoid dependency [...] 50 MG-HYDROCHLORO (more content not included)... Normal [facility] [place] ([id number]) 1960 F Date Time Provider Department 07/15/24 MICHAEL FLYNN During your visit today, we [...] 07/15/2024 Noted Resolved MYALGIA AND MYOSITIS NOS [[id number]] Tobacco use [Z72.0] 10/20/2013 01/07/2020 Depression with [...] Status:Closed by LA NENA MACK on 07/15/24 [facility] Germaine 07-10-2024 [facility] [place] ([id number]) 1960 F Date Time Provider Department 07/10/24 [...] Fully Assessed Reason for Visit: Patient Question [7226] Primary Visit Diagnosis:Primary hypertension [I10] Other Visit [...] 07/10/2024 Noted Resolved MYALGIA AND MYOSITIS NOS [[id number]] Tobacco use [Z72.0] 10/20/2013 01/07/2020 Depression with [...] Status:Closed by MICHAEL JOHNSON on 07/22/24 Normal [facility] ANTI NEUTRO CYTO ABon 2023 INTERPRETATION (ANCA) Normal [facility] Comment on above: Order Comment: Speci men Type: BLOOD SPECIMENOrdering Facility: [facility] Address: [address] [place] [address] Result Comment: Nega tive for C-ANCA and P-ANCA by indirect immunofluorescence. A negative result cannot reliably rule out ANCA-associated vaculitides especially when in remission. Clinical correlation is required. Performed By: #### A NCA ####[facility] LABCLIA [id number] [place] [address] [place] Neutrophil cytoplasmic Ab.classic IF Ql (S) Negative Normal Negative [facility] Comment on above: Order Comment: Speci men Type: BLOOD SPECIMENOrdering Facility: [facility] Address: [address] [place] [address] Performed By: #### A NCA ####[facility] LABCLIA [id number] [place] [address] [place] Neutrophil cytoplasmic Ab.perinuclear IF Ql (S) Negative Normal Negative [facility] Comment on above: Order Comment: Speci men Type: BLOOD SPECIMENOrdering Facility: [facility] Address: [address] [place] [address] Performed By: #### A NCA ####[facility] LABIA [id number] [place] [address] [place] STAFF REVIEW (ANCA) No review performed. Normal [facility] Comment on above: Order Comment: Speci men Type: BLOOD SPECIMENOrdering Facility: [facility] Address: [address] [place], [place] [address] Performed By: #### A NCA ####[facility] LABCLIA [id number] [place] [id number] [place] Basic metabolic 2000 panelOr dered By: Thi Story on 07-07-2024 Anion gap [Moles/Vol] 9 mmol/L 8 - 15 mmol/L [facility] Calcium [Mass/Vol] 9.9 mg/dL 8.5 - 10. 2 mg/dL [facility] Chloride [Moles/Vol] 104 mmol/L 98 - 107 mmol/L [facility] CO2 [Moles/Vol] 28 mmol/L 22 - 30 mmol/L [facility] Creatinine [Mass/Vol] 0.68 mg/dL 0.58 - 0.96 mg/dL [facility] GFR/1.73 sq M.predicted among non-blacks MDRD (S/P/Bld) [Vol rate/Area] 97 mL/min/{1.73_m2} - PINF [facility] Comment on above: Estimated Glomerular Filtration Rate [...] [Mass/Vol] 93 mg/dL 74 - 99 mg/dL [facility] Comment on above: The [place] Diabete s Association (ADA) provides guidance for [...] Standards of Medical Care in Diabetes 2016, [place] Diabetes Association. Diabetes Care. 2016.39(Suppl 1). Interpretation and review of laboratory results Normal [facility] Potassium [Moles/Vol] 4.7 mmol/L 3.7 - 5.1 mmol/L [facility] Sodium [Moles/Vol] 141 mmol/L 136 - 144 mmol/L [facility] Urea nitrogen [Mass/Vol] 12 mg/dL 7 - 21 mg/dL [facility] Basic metabolic 2000 panelon 07-07-2024 Anion gap [Moles/Vol] 9 mmol/L Normal 8-15 [facility] Comment on above: Order Comment: Speci men Type: BLOOD SPECIMENOrdering Facility: [facility] Address: [address] [place] [address] Performed By: #### 2 4321-2 ####[facility] FUENTES [id number] [place] [address] [place] Calcium [Mass/Vol] 9.9 mg/dL Normal 8.5-10.2 [facility] Comment on above: Order Comment: Speci men Type: BLOOD SPECIMENOrdering Facility: [facility] Address: [address] [place] [address] Performed By: #### 2 4321-2 ####[facility] HERACLIOA [id number] [place] [address] [place] Chloride [Moles/Vol] 104 mmol/L Normal 98-107 [facility] Comment on above: Order Comment: Speci men Type: BLOOD SPECIMENOrdering Facility: [facility] Address: [address] [place] [address] Performed By: #### 2 4321-2 ####[facility] MILLNIKIAWIRISLIA [id number] [place] [address] [place] CO2 [Moles/Vol] 28 mmol/L Normal 22-30 [facility] Comment on above: Order Comment: Speci men Type: BLOOD SPECIMENOrdering Facility: [facility] Address: [address] [place] [address] Performed By: #### 2 4321-2 ####[facility] [id number] [place] [address] [place] Creatinine [Mass/Vol] 0.68 mg/dL Normal 0.58-0.96 [facility] Comment on above: Order Comment: Collin whittaker Type: BLOOD SPECIMENOrdering Facility: [facility] Address: [address] [place] [address] Performed By: #### 2 4321-2 ####[facility] [id number] [address] [facility] Creatinine and Glomerular filtration rate.predicted panel (S/P/Bld) 97 mL/min/1.73m??? Normal >=60 [facility] Comment on above: Order Comment: Collin whittaker Type: BLOOD SPECIMENOrdering Facility: [facility] Address: [address] [place] [address] Result Comment: Luis mated Glomerular Filtration Rate [...] actual GFR. Performed By: #### 2 4321-2 ####[facility] [id number] [place] [address] [place] Glucose [Mass/Vol] 93 mg/dL Normal 74-99 [facility] Comment on above: Order Comment: Collin whittaker Type: BLOOD SPECIMENOrdering Facility: [facility] Address: [address] [place] [address] Result Comment: The [place] Diabetes Association (ADA) provides guidance for cutoff [...] Standards of Medical Care in Diabetes 2016, [place] [employer] Association. Diabetes Care. 2016.39(Suppl 1). Performed By: #### 2 4321-2 ####[facility] [id number] [place] [address] [place] Potassium [Moles/Vol] 4.7 mmol/L Normal 3.7-5.1 [facility] Comment on above: Order Comment: Collin whittaker Type: BLOOD SPECIMENOrdering Facility: [facility] Address: [address] [place] [address] Performed By: #### 2 4321-2 ####[facility] [id number] [place] [address] [place] Sodium [Moles/Vol] 141 mmol/L Normal 136-144 [facility] Comment on above: Order Comment: Collin whittaker Type: BLOOD SPECIMENOrdering Facility: [facility] Address: [address] [place] [address] Performed By: #### 2 4321-2 ####[facility] [id number] [place] [address] [place] Urea nitrogen [Mass/Vol] 12 mg/dL Normal 7-21 [facility] Comment on above: Order Comment: Collin whittaker Type: BLOOD SPECIMENOrdering Facility: [facility] Address: [address] [place] [address] Performed By: #### 2 4321-2 ####[facility] [id number] [place] [address] [place] CNOVon 07-07-2024 CNOV Office Visit (FAMDNA ) GIOVANNA NATION ([id number]) 1960 F Date Time Provider Department 07/07/24 [...] Sister suicide Ischemic Heart Disease Brother 60 [place], heavy smoker, Etoh Psychiatry Son Opoid dependency [...] on 01/22/2024) (more content not included)... Normal [facility] CRP SerPl-ncon 07-07-2024 CRP [Mass/Vol] mg/L Normal <0.9 [facility] Comment on above: Order Comment: Collin whittaker Type: BLOOD SPECIMENOrdering Facility: [facility] Address: [address] [place] [address] Performed By: #### 1 988-5 ####[facility] LABIA [id number] [place] [address] [place] ESR Westergren method (Bld) [Velocity]on 07-07-2024 ESR (Bld) [Velocity] 10 mm/h [facility] Interpretation and review of laboratory results Normal [facility] ESR (Bld) [Velocity] 10 mm/h Normal 0-20 [facility] Comment on above: Order Comment: Collin whittaker Type: BLOOD SPECIMENOrdering Facility: [facility] Address: [address] [place] [address] Performed By: #### 4 537-7 ####[facility] LABIA [id number] [place] [address] [place] CNOVon 07-05-2024 CNOV Office Visit (UCWSTR ) GIOVANNA NATION ([id number]) 1960 F Date Time Provider Department 07/05/24 10:30 AM [facility] During your visit today, [...] - Ch (more content not included)... Normal [facility] CNOVon 06-05-2024 CNOV Office Visit (NEURMM ) GIOVANNA NATION ([id number]) 1960 F Date Time Provider Department 06/05/24 10:00 AM CARLOTTA ARCHER NEURMM During your visit today, we recorded the following information about you: Pulse Respiration Blood pressure 88/minute 16/minute 113/78 Carlotta Archer MD 06/05/2024 11:45 AM [facility] [place] Patient presents with: Follow Up: headaches Accompanied by Self. Interval history Pleasant 63 years old woman ,who is here for follow up For headache and tinnitus ,as reaction to the vaccine . She would like to get rid of tinnitus Headache is intermittent since May 12 Gone until third may 10 came back but then gone [...] (H) 06/13/2022 (more content not included)... Normal [facility] CNCOon 05-29-2024 CNCO Letter Text Normal [facility] CNTHERAPYon 04-11-2024 CNTHERAPY OT/PT/Speech Visit (PTWS) GIOVANNA NATION ([id number]) 1960 F Date Time Provider Department 04/11/24 2:15 PM PIERRE MONTGOMERY PTWS Date Time Provider Department [place] 04/11/2024 2:15 PM [id number], C[facility] PTWS Wanda Rojas Reason for Visit: PT Discharge [752] [...] 1 capsule by mouth once daily. Normal [facility] CNTHERAPYon 03-25-2024 CNTHERAPY OT/PT/Speech Visit (PTWS) GIOV[place]NA NATION ([id number]) 1960 F Date Time Provider Department 03/25/24 3:00 PM PIERRE MONTGOMERY PTWS Date Time Provider Department [place] 03/25/2024 3:00 PM [id number], C[place] PTWS Wanda Rojas Reason for Visit: Physical Therapy [503] [...] 1 capsule by mouth once daily. Normal [facility] CNTHERAPYon 03-18-2024 CNTHERAPY OT/PT/Speech Visit (PTWS) GIOV[place]NA NATION ([id number]) 1960 F Date Time Provider Department 03/18/24 3:00 PM PIERRE MONTGOMERY PTWS Date Time Provider Department [place] 03/18/2024 3:00 PM [id number], C[place] PTWS Wanda Rojas Reason for Visit: Physical Therapy [503] [...] 1 capsule by mouth once daily. Normal [facility] CNTHERAPYon 03-11-2024 CNTHERAPY OT/PT/Speech Visit (PTWS) GIOV[place]NA NATION ([id number]) 1960 F Date Time Provider Department 03/11/24 3:45 PM PIERRE MONTGOMERY PTWS Date Time Provider Department Center 03/11/2024 3:45 PM [id number], COREY PTWS Wanda Rojas Reason for Visit: Physical Therapy [503] [...] 1 capsule by mouth once daily. Normal [facility] Methylmalonate SerPl-sCncon 03-10-2024 Methylmalonate [Moles/Vol] 0.18 umol/L Normal <=0.40 [facility] Comment on above: Order Comment: Speci men Type: BLOOD SPECIMENOrdering Facility: [facility] Address: [address] [place] [address] Result Comment: This test was developed and its performance characteristics determined by [facility]'s [facility] [place] ([facility]). It has not been cleared or approved by the FDA. [facility] is regulated under CLIA as qualified to perform high-complexity testing. This test is used for clinical purposes. It should not be regarded as investigational or for research. Performed By: #### 1 3964-2 ####[facility] LABCLIA [id number] [address] [place] CNOVon 03-05-2024 CNOV Office Visit (NEURMM ) GIOV[place]NA NATION ([id number]) 1960 F Date Time Provider Department 03/05/24 8:00 AM CARLOTTA ARCHER NEURMM During your visit today, we recorded the following information about you: Pulse Respiration Blood pressure Weight 82/minute 16/minute 107/74 45.1 kg Carlotta Archer MD 03/05/2024 8:59 PM [facility] March 05, 2024 Consultation My final recommendations will be communicated back to the requesting physician by way of shared medical record or letter via US mail. Referring physician:Emily Solis [place] [address] Patient presents with: Consult: headache Accompanied by Self. [facility] [place] [address]. HISTORY AND PHYSICAL Ms. Nation is a [...] 9.3 01/14/2024 (more content not included)... Normal [facility] [id number] 03-04-2024 [id number] HNO ID: [id number] Author: PIERRE MONTGOMERY PT Service: ? Author Type: Physical Therapist Type: [id number] Filed: 03/04/2024 07:55 Note Text: [facility] Physical Therapy Plan of Care Certification Patient Name: Giovanna Nation : 1960 CC #: [id number] Date: 02/19/2024 To: Juliane Denise PA-C From Therapist: Pierre Montgomery PT RE: Patient Certification/ Recertification Your review, approval and electronic signature are required in order to comply with Payor: [facility] MEDICAID / Plan: [facility] COMMUNITY PLAN MEDICAID OF [place] / Product Type: Medicaid / regulations. The [...] Patient to be seen for Therapeutic exercise (92461), Neuromuscular re-education (02403), Manual therapy (17312), Therapeutic activities (70951), Self-mcfp management (56470), Patient/Family/Caregive r Education For further details regarding this patient refer to the Physical Therapy electronically documented visit dated 02/19/2024. Provider Attestation I have reviewed the treatment plan for Giovanna Nation, CC# [id number] for the period of 02/19/24 -- 03/25/24, established on 02/19/2024. Signature certifies the need for therapy services. Normal [facility] 03-03-2024 CNPN Telephone (OPHTSK) GIOVANNA NATION ([id number]) 1960 F Date Time Provider Department 03/03/24 STARR HAINES OPHTSK During your visit today, we recorded the [...] Fully Assessed Reason for Visit: Insurance Authorization [[id number]] Cmt: Xdemvy Prescriptions as of 03/28/2024 - [...] 03/03/2024 Noted Resolved MYALGIA AND MYOSITIS NOS [XBS9881] Tobacco use [Z72.0] 10/20/2013 01/07/2020 Depression with [...] Encounter Status:Closed by HEIDI HARDIN on 03/28/24 [facility] CNTHERAPYon 02-19-2024 CNTHERAPY OT/PT/Speech Visit (PTWS) GIOVANNA NATION ([id number]) 1960 F Date Time Provider Department 02/19/24 9:30 AM PIERRE MONTGOMERY PTWS Date Time Provider Department [place] 02/19/2024 9:30 AM [id number], COREY PTWS Wanda Rojas Reason for Visit: PT Progress Note [9376] Primary Visit Diagnosis:Pain in left wrist [M25.532] [...] 1 capsule by mouth once daily. Normal [facility] CNOVon 02-18-2024 CNOV Office Visit (PNMDNA ) GIOV[place]NA NATION ([id number]) 1960 F Date Time Provider Department 02/18/24 11:30 AM RAJEEV HODGE PNMDNA During your visit today, we recorded the following information about you: Rajeev Hodge MD 02/18/2024 12:36 PM Signed [facility] Date: February 18, 2024 [...] Sister suicide Ischemic Heart Disease Brother 60 [place], heavy smoker, Etoh Psychiatry Son Opoid dependency [...] Panel: No results found for: UQCANN, UQBNZL, GWU3HXK, UQAMPH, UQMAMP, UQBUPRE, UQNORBUP, UQMTHD, UQEDDP, UQTRAM, UQDTRM, UQFNTL, UQNFTL, UQCODE, UQMORP, UQDCDN, UQHCOD, UQOXYC, UQHMOR, UQOXYM, UQCREA, UQPH, UQSPGR, UQOXID, UQSPQ The pain panel was N/A OBJECTIVE: Performed in conjunction with observation. The patient was alert and oriente (more content not included)... Normal [facility] CNTHERAPYon 02-12-2024 CNTHERAPY OT/PT/Speech Visit (PTWS) GIOVANNA NATION ([id number]) 1960 F Date Time Provider Department 02/12/24 8:30 AM PIERRE MONTGOMERY PTWS Date Time Provider Department Center 02/12/2024 8:30 AM [id number], C[place] PTWS Wanda Rojas Reason for Visit: Physical Therapy [503] [...] 1 capsule by mouth once daily. Normal [facility] CASE MANAGEMon 01-15-2024 CASE MANAGEM HNO ID: [id number] Author: KATHE HERNANDEZ RN Service: ? Author [...] ED to Hosp-Admission (Current) from 01/14/2024 in [facility] Follow-Up Appointment Provider Name PCP: Michael Flynn MD - SIGNATURE: Kathe Hernandez RN PATIENT NAME: Giovanna Nation DATE: January 15, 2024 TIME: 11:28 AM CONTACT #: [phone] [facility] CASE MGT INIT [facility] [address] [facility] HNO ID: [id number] Author: KATHE HERNANDEZ RN Service: ? Author Type: Registered Nurse Type: Care Mgt Initial Assessment Filed: 01/15/2024 11:26 Note Text: CARE MANAGEMENT: ASSESSMENT AND DISCHARGE PLAN SERVICE DATE: January 15, 2024 SERVICE TIME: 11:24 AM radiologic technology instructor spoke with patient at bedside to complete Care Management Assessment. Introduction made and role of Care Management explained. PCP: Michael Flynn MD - patient confirmed Primary Contact: None Noted Admission Status: Observation Insurance Provider: [facility] COMMUNITY PLAN MEDICAID [place] Discharge Planning [...] Patient Goal(s): Be able to go home [place] Explained: [place] Given: No Reason Not Given: [...] 15, 2024 TIME: 11:24 AM CONTACT #: [phone] [facility] 01-15-2024 [facility] ID: [id number] Author: EMILY TATUM MD Service: Hospital Medicine [...] DISCHARGE: Stable DISCHARGE DISPOSITION: Home with Self Retirement with Self Care GENERAL: Alert, no distress, [...] Your Medications These medications were sent to [id number] [place] [address] - [address] [facility] [phone] [place] [id number] baclofen 5 mg tablet gabapentin 100 mg capsule FUTURE APPOINTMENTS: Follow Up with PCP: Michael Flynn MD Follow Up with Neurology, Spine Discharge Information Row Name ED to Hosp-Admission (Discharged) from 01/14/2024 in [facility] Follow-Up Appointment Provider Name PCP: Michael [...] Provider, RN, Patient I have performed the avvt-xm-dcwg and relevant services for a total of < 30 minutes. SIGNATURE: Emily Tatum MD (more content not included)... Normal [facility] CONSULT PROGon 01-15-2024 CONSULT PROG HNO ID: [id number] Author: JONG HEAD MD Service: Neurology General [...] hours for Teleneurology please page (not call) [place] [facility] [address] licensed bondsman for concerns. [place]: During Off hours for Teleneurology please page (not call) [place] [facility] [address] licensed bondsman for concerns. [facility]: There is no off-hours coverage for Teleneurology. [...] Jong Head MD Neurology Attending Physician [facility] [place] [facility] [place] January 15, 2024 Patient was seen using telemedicine services on this date. Examination was completed by Teleneurology video (Framehawk system) assisted by Teleneurology nurse at bedside. [...] mg cap(s) (NEURONTIN) b[facility]of[facility] 5 [facility] HNO ID: [id number] Author: RADHA MENESES RT(R) Service: Radiology Author Type: Technologist Type: [facility] Filed: 01/14/2024 14:07 Note Text: Radiology Service [...] PATIENT PRESENTS WITH AN IMPLANTABLE OR ATTACHED PHOTO BOOTH OPERATOR: No ALLERGIES: Reviewed and unchanged CONTRAST ALLERGY: NO. EXAM: MRI - CONTRAST TYPE: GROUP II PERIPHERAL IV DATA: Inpatient - refer to LDA documentation RADIOLOGY DEPARTMENT: MR; Exam(s) Completed: Head: Routine Brain Sagittal Sinus MRV Spine: Cervical spine SIGNATURE: Radha Meneses, MRI/ RAMIRO Spencer PATIENT NAME: Giovanna Nation DATE: January 14, 2024 TIME: 2:06 PM [facility] HNO ID: [id number] Author: RHONA AUSTIN RT(R) Service: Radiology Author Type: Technologist Type: [facility] Filed: 01/14/2024 05:32 Note Text: Radiology Service [...] PATIENT PRESENTS WITH AN IMPLANTABLE OR ATTACHED PHOTO BOOTH OPERATOR: No RADIOLOGY DEPARTMENT: CT; Exam(s) Completed: Brain PERIPHERAL IV DATA: Inpatient: see LDA documentation SIGNED BY: RT Uriel(R) January 14, 2024 5:20 AM [facility] CBC W Auto Differential pane l (Bld)on 01-14-2024 Basophils (Bld) [#/Vol] 0.05 10*3/uL Normal <0.11 [facility] Comment on above: Order Comment: Speci men Type: BLOOD SPECIMEN [facility] Address: [address] [place] [address] Performed By: #### 5 7021-8 #### [facility] CLIA [id number] [address] [place] [address] [place] Basophils/100 WBC (Bld) 0.8 % Normal [facility] Comment on above: Order Comment: Speci men Type: BLOOD SPECIMEN [facility] Address: [address] [place] [address] Performed By: #### 5 7021-8 #### [facility] CLIA [id number] [address] [place] [address] [place] Differential cell count method Nom (Bld) Auto Normal [facility] Comment on above: Order Comment: Speci men Type: BLOOD SPECIMEN [facility] Address: [address] [place] [address] Performed By: #### 5 7021-8 #### [facility] CLIA [id number] [address] [place] [address] [place] Eosinophils (Bld) [#/Vol] 0.12 10*3/uL Normal <0.46 [facility] Comment on above: Order Comment: Speci men Type: BLOOD SPECIMEN [facility] Address: [address] [place] [address] Performed By: #### 5 7021-8 #### [facility] CLIA [id number] [address] [place] [address] [place] Eosinophils/100 WBC (Bld) 2.0 % Normal [facility] Comment on above: Order Comment: Speci men Type: BLOOD SPECIMEN [facility] Address: [address] [place] [address] Performed By: #### 5 7021-8 #### [facility] CLIA [id number] [address] [place] Erythrocyte distribution width (RBC) [Ratio] 11.9 % Normal 11.5-15.0 [facility] Comment on above: Order Comment: Speci men Type: BLOOD SPECIMEN [facility] Address: [address] [place] [address] Performed By: #### 5 7021-8 #### [facility] CLIA [id number] [address] [place] Hematocrit (Bld) [Volume fraction] 41.1 % Normal 36.0-46.0 [facility] Comment on above: Order Comment: Speci men Type: BLOOD SPECIMEN [facility] Address: [address] [place] [address] Performed By: #### 5 7021-8 #### [facility] CLIA [id number] [address] [place] Hemoglobin (Bld) [Mass/Vol] 13.9 g/dL Normal 11.5-15.5 [facility] Comment on above: Order Comment: Speci men Type: BLOOD SPECIMEN [facility] Address: [address] [place] [address] Performed By: #### 5 7021-8 #### [facility] CLIA [id number] [address] [place] [address] [place] Immature granulocytes (Bld) [#/Vol] 10*3/uL Normal <0.10 [facility] Comment on above: Order Comment: Speci men Type: BLOOD SPECIMEN [facility] Address: [address] [place] [address] Performed By: #### 5 7021-8 #### [facility] CLIA [id number] [address] Immature granulocytes/100 WBC (Bld) 0.3 % Normal [facility] Comment on above: Order Comment: Speci men Type: BLOOD SPECIMEN [facility] Address: [address] [place] [address] Performed By: #### 5 7021-8 #### [facility] CLIA [id number] [address] [place] [address] [place] Lymphocytes (Bld) [#/Vol] 2.59 10*3/uL Normal 1.00-4.00 [facility] Comment on above: Order Comment: Speci men Type: BLOOD SPECIMEN [facility] Address: [address] [place] [address] Performed By: #### 5 7021-8 #### [facility] CLIA [id number] [address] Lymphocytes/100 WBC (Bld) 43.0 % Normal [facility] Comment on above: Order Comment: Speci men Type: BLOOD SPECIMEN [facility] Address: [address] [place] [address] Performed By: #### 5 7021-8 #### [facility] CLIA [id number] [address] [place] MCH (RBC) [Entitic mass] 30.4 pg Normal 26.0-34.0 [facility] Comment on above: Order Comment: Speci men Type: BLOOD SPECIMEN [facility] Address: [address] [place] [address] Performed By: #### 5 7021-8 #### [facility] CLIA [id number] [address] [place] MCHC (RBC) [Mass/Vol] 33.8 g/dL Normal 30.5-36.0 [facility] Comment on above: Order Comment: Speci men Type: BLOOD SPECIMEN [facility] Address: [address] [place] [address] Performed By: #### 5 7021-8 #### [facility] CLIA [id number] [address] [place] [address] [place] MCV (RBC) [Entitic vol] 89.9 fL Normal 80.0-100.0 [facility] Comment on above: Order Comment: Speci men Type: BLOOD SPECIMEN [facility] Address: [facility] [place] [address] Performed By: #### 5 7021-8 #### [facility] CLIA [id number] [address] [place] [address] [place] Monocytes (Bld) [#/Vol] 0.49 10*3/uL Normal <0.87 [facility] Comment on above: Order Comment: Speci men Type: BLOOD SPECIMEN [facility] Address: [address] [place] [address] Performed By: #### 5 7021-8 #### [facility] CLIA [id number] [address] [place] Monocytes/100 WBC (Bld) 8.1 % Normal [facility] Comment on above: Order Comment: Speci men Type: BLOOD SPECIMEN [facility] Address: [address] [place] [address] Performed By: #### 5 7021-8 #### [facility] CLIA [id number] [address] [place] [address] [place] Neutrophils (Bld) [#/Vol] 2.76 10*3/uL Normal 1.45-7.50 [facility] Comment on above: Order Comment: Speci men Type: BLOOD SPECIMEN [facility] Address: [address] [place] [address] Performed By: #### 5 7021-8 #### [facility] CLIA [id number] [address] [place] Neutrophils/100 WBC (Bld) 45.8 % Normal [facility] Comment on above: Order Comment: Speci men Type: BLOOD SPECIMEN [facility] Address: [address] [place] [address] Performed By: #### 5 7021-8 #### [facility] CLIA [id number] [address] Nucleated RBC (Bld) [#/Vol] 10*3/uL Normal <0.01 [facility] Comment on above: Order Comment: Speci men Type: BLOOD SPECIMEN [facility] Address: [address] [place] [address] Performed By: #### 5 7021-8 #### [facility] CLIA [id number] [address] [place] Nucleated RBC/100 WBC (Bld) [Ratio] 0.0 /100 WBC Normal [facility] Comment on above: Order Comment: Speci men Type: BLOOD SPECIMEN [facility] Address: [address] [place] [address] Performed By: #### 5 7021-8 #### [facility] CLIA [id number] [address] [place] Platelet mean volume (Bld) [Entitic vol] 9.2 fL Normal 9.0-12.7 [facility] Comment on above: Order Comment: Speci men Type: BLOOD SPECIMEN [facility] Address: [address] [place] [address] Performed By: #### 5 7021-8 #### [facility] CLIA [id number] [address] [place] Platelets (Bld) [#/Vol] 284 10*3/uL Normal 150-400 [facility] Comment on above: Order Comment: Speci men Type: BLOOD SPECIMEN [facility] Address: [address] [place] [address] Performed By: #### 5 7021-8 #### [facility] CLIA [id number] [address] [place] [address] [place] RBC (Bld) [#/Vol] 4.57 10*6/uL Normal 3.90-5.20 [facility] Comment on above: Order Comment: Speci men Type: BLOOD SPECIMEN [facility] Address: [address] [place] [address] Performed By: #### 5 7021-8 #### [facility] CLIA [id number] [address] [place] [address] [place] WBC (Bld) [#/Vol] 6.03 10*3/uL Normal 3.70-11.00 [facility] Comment on above: Order Comment: Speci men Type: BLOOD SPECIMEN [facility] Address: [address] [place] [address] Performed By: #### 5 7021-8 #### [facility] CLIA [id number] [address] [place] [address] [facility] CONSULTon 01-14-2024 CONSULT HNO ID: [id number] Author: THI MOSS PA-C Service: Neurology General Author Type: Physician Data Coordinator Type: Consults Filed: 01/14/2024 10:50 Note Text: TELENEUROLOGY VISIT - NEW CONSULTATION Name and :Giovanna Nation 1960 Patient consented to teleneurology visit on order for consult. New Patient: I'm Thi Moss PA-C , I'm a licensed in the [facility]. I want to confirm your location in [place]. Virtual visits are a convenient way for us to meet for the first time, but there are some situations in which an in-person evaluation may be required at a later time. I want to check in to confirm your consent to be seen virtually today. The Teleneurologist or ALBERTO is available from 8 am to 5 pm on weekdays. On weekends, at [place] and [place], the Teleneurologist or ALBERTO is available from 8 am to 5 pm, [facility] 8 am to 12 pm, [place] 1 pm to 5 pm, [place] 8 am to 12 pm, [place] 1 pm to 5 pm. Statutory holidays do not have teleneuro coverage. [facility]: During Off hours for Teleneurology please page (not call) [facility] [phone] licensed bondsman for concerns. [facility]: During Off hours for Teleneurology please page (not call) [place] [facility] [phone] licensed bondsman for concerns. [facility]: There is no off-hours coverage for Teleneurology. [...] weight loss. Last March had something similar. [place] like she had a sinus infection. Head [...] Adhd Prima (more content not included)... Normal [facility] CRP SerPl-mCncon 01-14-2024 CRP [Mass/Vol] mg/L Normal <0.9 [facility] Comment on above: Order Comment: Speci men Type: BLOOD SPECIMENOrdering Facility: [facility] Address: [address] [place] [address] Performed By: #### 1 9123-9, 79759-2, 1987-11 ####[place] LABORATORYCLIA [id number] [place] [address] [place] [address] BRAIN WO IVCONon 01-14-[address] BRAIN WO IVCON * * *Final Report* * * DATE OF EXAM: Jan 14 2024 5:36AM [facility] [place] IVCON / [...] unremarkable. Localizer images: No significant findings. IMPRESSION: Quickbooks Bookkeeper: ROSA Transcribe Date/Time: Jan 14 2024 6:04A Dictated by : SHI JOSHI MD This examination was interpreted and the report reviewed and electronically signed by: SHI JOSHI MD on Jan 14 2024 6:12AM EST [id number] Normal [facility] Comprehensive metabolic 2000 panelon 01-14-2024 Albumin [Mass/Vol] 4.1 g/dL Normal 3.9-4.9 [facility] Comment on above: Order Comment: Speci men Type: BLOOD SPECIMENOrdering Facility: [facility] Address: [address] [place] [address] Performed By: #### 1 91239, , 1987-11 ####[place] [facility]ORATORYCLIA [id number] [address] STATES OF [facility] ALP [Catalytic activity/Vol] 70 U/L Normal 34-123 [facility] Comment on above: Order Comment: Speci men Type: BLOOD SPECIMENOrdering Facility: [facility] Address: [address] [place] [address] Performed By: #### 1 9123-9, , 1987-11 ####[place] [facility]ORATORYCLIA [id number] [address] ALT [Catalytic activity/Vol] 10 U/L Normal 7-38 [facility] Comment on above: Order Comment: Speci men Type: BLOOD SPECIMENOrdering Facility: [facility] Address: [address] [place] [address] Performed By: #### 1 9, , 1987-11 ####[facility] LABORATORYCLIA [id number] [place] [address] [place] Anion gap [Moles/Vol] 7 mmol/L Low 8-15 [facility] Comment on above: Order Comment: Speci men Type: BLOOD SPECIMENOrdering Facility: [facility] Address: [address] [place] [address] Performed By: #### 1 9, , 1987-11 ####[facility] LABORATORYCLIA [id number] [place] [address] [place] AST [Catalytic activity/Vol] 17 U/L Normal 13-35 [facility] Comment on above: Order Comment: Speci men Type: BLOOD SPECIMENOrdering Facility: [facility] Address: [address] [place] [address] Performed By: #### 1 9, , 1987-11 ####[facility] LABORATORYCLIA [id number] [place] [address] [place] Bilirubin [Mass/Vol] 0.4 mg/dL Normal 0.2-1.3 [facility] Comment on above: Order Comment: Speci men Type: BLOOD SPECIMENOrdering Facility: [facility] Address: [address] [place] [address] Performed By: #### 1 239, , 1987-11 ####[facility] LABORATORYCLIA [id number] [address] [place] Calcium [Mass/Vol] 9.3 mg/dL Normal 8.5-10.2 [facility] Comment on above: Order Comment: Speci men Type: BLOOD SPECIMENOrdering Facility: [facility] Address: [address] [place] [address] Performed By: #### 1 23-9, , 1987-11 ####[facility] LABORATORYCLIA [id number] [place] [address] [place] Chloride [Moles/Vol] 100 mmol/L Normal 98-107 [facility] Comment on above: Order Comment: [place] whittaker Type: BLOOD SPECIMENOrdering Facility: [facility] Address: [address] [place] [address] Performed By: #### 1 23-9, , 1987-11 ####[facility] LABORATORYCLIA [id number] [place] [address] [place] CO2 [Moles/Vol] 29 mmol/L Normal 22-30 [facility] Comment on above: Order Comment: [place] men Type: BLOOD SPECIMENOrdering Facility: [facility] Address: [address] [place] [address] Performed By: #### 1 9, , 1987-11 ####[facility] LABORATORYCLIA [id number] [address] STATES [facility] Creatinine [Mass/Vol] 0.65 mg/dL Normal 0.58-0.96 [facility] Comment on above: Order Comment: [place] men Type: BLOOD SPECIMENOrdering Facility: [facility] Address: [address] [place] [address] Performed By: #### 1 239, , 1987-11 ####[facility] LABORATORYCLIA [id number] [address] Creatinine and Glomerular filtration rate.predicted panel (S/P/Bld) 98 mL/min/1.73m??? Normal >=60 [facility] Comment on above: Order Comment: [place] men Type: BLOOD SPECIMENOrdering Facility: [facility] Address: [address] [place] [address] Result Comment: Luis mated Glomerular Filtration Rate [...] reflect actual GFR. Performed By: #### 1 9123-03, 1987-11 ####[facility] LABORATORYCLIA [id number] [place] [id number] [place] Glucose [Mass/Vol] 97 mg/dL Normal 74-99 [facility] Comment on above: Order Comment: Speci men Type: BLOOD SPECIMENOrdering Facility: [facility] Address: [address] [place] [address] Result Comment: The [place] Diabetes Association (ADA) provides guidance for cutoff [...] Standards of Medical Care in Diabetes 2016, [place] [employer] Association. Diabetes Care. 2016.39(Suppl 1). Performed By: #### 1 239, 1987-11 ####[facility] LABORATORYCLIA [id number] [place] [id number] [place] Potassium [Moles/Vol] 3.3 mmol/L Low 3.7-5.1 [facility] Comment on above: Order Comment: Speci men Type: BLOOD SPECIMENOrdering Facility: [facility] Address: [address] [place] [address] Performed By: #### 1 9, 1987-11 ####[facility] LABORATORYCLIA [id number] [place] [address] [place] Protein [Mass/Vol] 6.6 g/dL Normal 6.3-8.0 [facility] Comment on above: Order Comment: Speci men Type: BLOOD SPECIMENOrdering Facility: [facility] Address: [address] [place], [place] [address] Performed By: #### 1 239, 1987-11 ####[facility] LABORATORYCLIA [id number] [address] Sodium [Moles/Vol] 136 mmol/L Normal 136-144 [facility] Comment on above: Order Comment: [place] whittaker Type: BLOOD SPECIMENOrdering Facility: [facility] Address: [address] [place], [place] [address] Performed By: #### 1 9123-9, , 1987-11 ####[place] LABORATORYCLIA [id number] [place] [id number] [facility] Urea nitrogen [Mass/Vol] 16 mg/dL Normal 7-21 [facility] Comment on above: Order Comment: Speci men Type: BLOOD SPECIMENOrdering Facility: [facility] Address: [address] [place], [place] [address] Performed By: #### 1 91239, , 1987-11 ####[place] LABORATORYCLIA [id number] [place] [id number] [facility] ED NOTEon 01-14-2024 ED NOTE HNO ID: [id number] Author: MARIA DE JESUS MORGAN RN Service: ? Author Type: Registered Nurse Type: ED Notes Filed: 01/14/2024 07:34 Note Text: Assumed patient care. Provided with warm blanket. Denies any other needs at this time. Normal [facility] ED PROV NOTEon 01-14-2024 ED PROV NOTE HNO ID: [id number] Author: DONNA OWENS MD Service: ? Author [...] Sister suicide Ischemic Heart Disease Brother 60 [place], heavy smoker, Etoh Psychiatry Son Opoid dependency [...] soft. Musculoskeletal: (more content not included)... Normal [facility] HISTORY PHYSICALon HISTORY PHYSICAL HNO ID: [id number] Author: EMILY TATUM MD Service: Hospital Medicine Author Type: Physician Type: H&P Filed: 01/14/2024 12:52 Note Text: DEPARTMENT OF HOSPITAL MEDICINE HISTORY AND PHYSICAL EXAM SERVICE DATE: 01/14/2024 SERVICE TIME: 12:38 PM Primary Care Physician: Michael Flynn MD NIGHT AND WEEKEND COVERAGE: [place] COVERAGE: Days: [phone], please page attending physician. Nights: [phone], please page [place] [facility] Night coverage pager [phone]. Subjective CHIEF COMPLAINT: Headache HPI: Ms. Giovanna [...] Sister suicide Ischemic Heart Disease Brother 60 [place], heavy smoker, Etoh Psychiatry Son Opoid dependency [...] outpateint. He (more content not included)... Normal [facility] MRI BRAIN WO/W IVCONon 01-13 MRI BRAIN WO/W IVCON * * *Final Report* * * DATE OF EXAM: Jan 14 2024 3:12PM [facility] 0295 - MRI BRAIN WO/W IVCON / PROCEDURE REASON: Headache, sudden, severe * * * * Physician Interpretation * * * * EXAMINATION: MRI CERVICAL SPINE WO IVCON, MRI BRAIN WO/W IVCON, MRV BRAIN WO/W IVCON CLINICAL HISTORY: Worsening headache for 6-8 months with left facial numbness. TECHNIQUE: Routine intracranial mass protocol with and without gadolinium. 2-D dyzv-ke-zozpto intracranial MRV, and coronal gradient echo volume [...] or focal significant stenosis on the 2-D smti-rz-cpsglz and gadolinium-enhanced acquisitions. Bilateral cavernous sinuses are [...] vertebrae with counting from the craniocervical junction. Quickbooks Bookkeeper: ROSA Transcribe Date/Time: Jan 14 2024 3:29P Dictated by : RHONA BEGUM, DO This examination was interpreted and the report reviewed and electronically signed by: RAJEEV JACK MD on Jan 14 2024 4:28PM EST [id number] [facility] MRI CERVICAL SPINE WO IVCONo n 01-14-2024 MRI CERVICAL SPINE WO IVCON * * *Final Report* * * DATE OF EXAM: Jan 14 2024 3:12PM [facility] 0297 - MRI CERVICAL SPINE WO IVCON / PROCEDURE REASON: Cervical radiculopathy, no red flags * * * * Physician Interpretation * * * * EXAMINATION: MRI CERVICAL SPINE WO IVCON, MRI BRAIN WO/W IVCON, MRV BRAIN WO/W IVCON CLINICAL HISTORY: Worsening headache for 6-8 months with left facial numbness. TECHNIQUE: Routine intracranial mass protocol with and without gadolinium. 2-D dpzw-xi-oxawhq intracranial MRV, and coronal gradient echo volume [...] or focal significant stenosis on the 2-D gtae-ji-hzzthz and gadolinium-enhanced acquisitions. Bilateral cavernous sinuses are [...] vertebrae with counting from the craniocervical junction. Quickbooks Bookkeeper: ROSA Transcribe Date/Time: Jan 14 2024 3:29P Dictated by : RHONA BEGUM, DO This examination was interpreted and the report reviewed and electronically signed by: RAJEEV JACK MD on Jan 14 2024 4:28PM EST [id number] [facility] MRV BRAIN WO/W IVCONon 01-13 MRV BRAIN WO/W IVCON * * *Final Report* * * DATE OF EXAM: Jan 14 2024 3:12PM [facility] 0336 - MRV BRAIN WO/W IVCON / PROCEDURE REASON: Dural venous sinus thrombosis suspected * * * * Physician Interpretation * * * * EXAMINATION: MRI CERVICAL SPINE WO IVCON, MRI BRAIN WO/W IVCON, MRV BRAIN WO/W IVCON CLINICAL HISTORY: Worsening headache for 6-8 months with left facial numbness. TECHNIQUE: Routine intracranial mass protocol with and without gadolinium. 2-D zpuq-kf-opkoya intracranial MRV, and coronal gradient echo volume [...] or focal significant stenosis on the 2-D ckit-lz-ssgzux and gadolinium-enhanced acquisitions. Bilateral cavernous sinuses are [...] vertebrae with counting from the craniocervical junction. Quickbooks Bookkeeper: ROSA Transcribe Date/Time: Jan 14 2024 3:29P Dictated by : RHONA BEGUM, DO This examination was interpreted and the report reviewed and electronically signed by: RAJEEV JACK MD on Jan 14 2024 4:28PM EST [id number] Normal [facility] Magnesium SerPl-mCncon 01-13 Magnesium [Mass/Vol] 1.9 mg/dL Normal 1.7-2.3 [facility] Comment on above: Order Comment: Speci men Type: BLOOD SPECIMENOrdering Facility: [facility] Address: [address] [place], [place] [address] Performed By: #### 1 9123-9, 44391-8, 1987-11 ####[facility] LABORATORYCLIA [id number] [place] [address] [place] Cobalamin (Vitamin B12) [Mas s/Vol]on 12-28-2023 Interpretation and review of laboratory results Abnormal [facility] HEAVY METALS SCRN BLon 12-27 ARSENIC, BLOOD <10.0 Normal <=12.0 [facility] Comment on above: Order Comment: [place] whittaker Type: BLOOD SPECIMEN [facility] Address: [address] [place] [address] Result Comment: INTE RPRETIVE INFORMATION: Arsenic, Blood [...] developed and its performance characteristics determined by [employer]. It has not been cleared or approved by the [place] Food and Drug Administration. This test was performed in a CLIA certified laboratory and is intended for clinical purposes. Performed By: #### 5 7021-8 #### [place] [facility] CLIA [id number] [address] [place] [address] [place] LEAD <2.0 Normal <=4.9 [facility] Comment on above: Order Comment: [place] whittaker Type: BLOOD SPECIMEN [facility] Address: [address] [place] [id number] Result Comment: INTE RPRETIVE INFORMATION: Lead, Blood [...] developed and its performance characteristics determined by [employer]. It has not been cleared or approved [...] present. Performed By: #### 5 7021-8 #### [place] [facility] CLIA [id number] [address] [place] [address] [place] MERCURY <2.5 Normal <=10.0 [facility] Comment on above: Order Comment: Speci men Type: BLOOD SPECIMEN [facility] Address: [address] [place] [address] Result Comment: INTE RPRETIVE INFORMATION: Mercury, Blood [...] developed and its performance characteristics determined by [employer]. It has not been cleared or approved by the US Food and Drug Administration. This test was performed in a CLIA certified laboratory and is intended for clinical purposes. Performed By: [employer] [address] [place] [address] [employer] Melter: Daniel Cortés MD, PhD CLIA Number: [id number] Performed By: #### 5 7021-8 #### [facility] [facility] CLIA [id number] [address] OF [facility] VITAMIN B12on 12-28-2023 Cobalamin (Vitamin B12) [Mass/Vol] pg/mL High 232 - 1245 pg/mL [facility] Vit B12 SerPl-ncon 024 Cobalamin (Vitamin B12) [Mass/Vol] pg/mL High 232-1245 [facility] Comment on above: Order Comment: Speci men Type: BLOOD SPECIMEN [facility] Address: [address] [place] [address] Performed By: #### 5 7021-8 #### [facility] CLIA [id number] [address] STATES OF [facility] XR CHEST 2V FRONTAL/LATon [facility] COVID NAAT, UPPER RESPIRATOR Y, ROUTINEon 05-22-2023 SARS-CoV-2 (COVID-19) RNA BELINDA+probe Ql (Resp) Not detected See comment [facility] ROUTINE FLU A/B + RSVon FLUAV RNA BELINDA+probe Ql (Unsp spec) Not detected Not Detected [facility] FLUBV RNA BELINDA+probe Ql (Unsp spec) Not detected Not Detected [facility] RSV A RNA BELINDA+probe Ql (Unsp spec) Not detected Not Detected [facility] C-REACTIVE PROTEIN (CRP)on 07-21-2022 CRP [Mass/Vol] 4.6 mg/dL High <0.9 mg/dL [facility] CBC W Auto Differential pane l (Bld)on 05-21-2023 Basophils (Bld) [#/Vol] 0.05 10*3/uL <0.11 k/uL [facility] Basophils/100 WBC (Bld) 0.5 % [facility] Differential cell count method Nom (Bld) Auto [facility] Eosinophils (Bld) [#/Vol] 0.12 10*3/uL <0.46 k/uL [facility] Eosinophils/100 WBC (Bld) 1.2 % [facility] Erythrocyte distribution width (RBC) [Ratio] 10.7 % Low 11.5 - 15.0 % [facility] Hematocrit (Bld) [Volume fraction] 39.0 % 36.0 - 46.0 % [facility] Hemoglobin (Bld) [Mass/Vol] 13.2 g/dL 11.5 - 15.5 g/dL [facility] Immature granulocytes (Bld) [#/Vol] 0.06 10*3/uL <0.10 k/uL [facility] Immature granulocytes/100 WBC (Bld) 0.6 % [facility] Lymphocytes (Bld) [#/Vol] 2.38 10*3/uL 1.00 - 4.00 k/uL [facility] Lymphocytes/100 WBC (Bld) 24.7 % [facility] MCH (RBC) [Entitic mass] 30.5 pg 26.0 - 34.0 pg [facility] MCHC (RBC) [Mass/Vol] 33.8 g/dL 30.5 - 36.0 g/dL [facility] MCV (RBC) [Entitic vol] 90.1 fL 80.0 - 100.0 fL [facility] Monocytes (Bld) [#/Vol] 0.85 10*3/uL <0.87 k/uL [facility] Monocytes/100 WBC (Bld) 8.8 % [facility] Neutrophils (Bld) [#/Vol] 6.16 10*3/uL 1.45 - 7.50 k/uL [facility] Neutrophils/100 WBC (Bld) 64.2 % [facility] Nucleated RBC (Bld) [#/Vol] <0.01 k/uL [facility] Nucleated RBC/100 WBC (Bld) [Ratio] 0.0 /100 WBC [facility] Platelet mean volume (Bld) [Entitic vol] 9.2 fL 9.0 - 12.7 fL [facility] Platelets (Bld) [#/Vol] 462 10*3/uL High 150 - 400 k/uL [facility] RBC (Bld) [#/Vol] 4.33 10*6/uL 3.90 - 5.2 0 m/uL [facility] WBC (Bld) [#/Vol] 9.62 10*3/uL 3.70 - 11. 00 k/uL [facility] Comprehensive metabolic 2000 panelon 05-21-2023 Albumin [Mass/Vol] 3.8 g/dL Low 3.9 - 4.9 g/dL Cl [facility] ALP [Catalytic activity/Vol] 84 U/L 34 - 123 U/L [facility] ALT [Catalytic activity/Vol] 16 U/L 7 - 38 U/L [facility] Anion gap [Moles/Vol] 14 mmol/L 9 - 18 mmol/L [facility] AST [Catalytic activity/Vol] 23 U/L 13 - 35 U/L [facility] Bilirubin [Mass/Vol] 0.3 mg/dL 0.2 - 1.3 mg/dL [facility] Calcium [Mass/Vol] 9.5 mg/dL 8.5 - 10. 2 mg/dL [facility] Chloride [Moles/Vol] 97 mmol/L 97 - 105 mmol/L [facility] CO2 [Moles/Vol] 27 mmol/L 22 - 30 mmol/L [facility] Creatinine [Mass/Vol] 0.68 mg/dL 0.58 - 0.96 mg/dL [facility] Estimated Glomerular Filtration Rate 98 mL/min/1.73m >=60 mL/min/1.73m [facility] Glucose [Mass/Vol] 87 mg/dL 74 - 99 mg/dL [facility] Potassium [Moles/Vol] 3.9 mmol/L 3.7 - 5.1 mmol/L [facility] Protein [Mass/Vol] 7.3 g/dL 6.3 - 8.0 g/dL [facility] Sodium [Moles/Vol] 138 mmol/L 136 - 144 mmol/L [facility] Urea nitrogen [Mass/Vol] 9 mg/dL 7 - 21 mg/dL [facility] ESR Westergren method (Bld) [Velocity]on 05-21-2023 ESR (Bld) [Velocity] 78 mm/h High 0 - 20 mm/hr [facility] Renal function 2000 panelon 05-07-2023 Albumin [Mass/Vol] 4.4 g/dL 3.9 - 4.9 g/dL Cl [facility] Anion gap [Moles/Vol] 13 mmol/L 9 - 18 mmol/L [facility] Calcium [Mass/Vol] 9.6 mg/dL 8.5 - 10. 2 mg/dL [facility] Chloride [Moles/Vol] 101 mmol/L 97 - 105 mmol/L [facility] CO2 [Moles/Vol] 24 mmol/L 22 - 30 mmol/L [facility] Creatinine [Mass/Vol] 0.69 mg/dL 0.58 - 0.96 mg/dL [facility] Estimated Glomerular Filtration Rate 98 mL/min/1.73m >=60 mL/min/1.73m [facility] Glucose [Mass/Vol] 94 mg/dL 74 - 99 mg/dL [facility] Phosphate [Mass/Vol] 3.3 mg/dL 2.7 - 4.8 mg/dL [facility] Potassium [Moles/Vol] 5.3 mmol/L High 3.7 - 5.1 mmol/L [facility] Sodium [Moles/Vol] 138 mmol/L 136 - 144 mmol/L [facility] Urea nitrogen [Mass/Vol] 9 mg/dL 7 - 21 mg/dL [facility] TSH BLDon 05-07-2023 TSH Qn 1.280 m[IU]/L 0.270 - 4.200 mIU/L [facility] C-REACTIVE PROTEIN (CRP)on 08-13-2021 CRP [Mass/Vol] <0.9 mg/dL [facility] CBC W Auto Differential pane l (Bld)on 06-13-2022 Basophils (Bld) [#/Vol] 0.04 10*3/uL <0.11 k/uL [facility] Basophils/100 WBC (Bld) 0.8 % [facility] Differential cell count method Nom (Bld) Auto [facility] Eosinophils (Bld) [#/Vol] 0.07 10*3/uL <0.46 k/uL [facility] Eosinophils/100 WBC (Bld) 1.3 % [facility] Erythrocyte distribution width (RBC) [Ratio] 11.6 % 11.5 - 15.0 % [facility] Hematocrit (Bld) [Volume fraction] 41.9 % 36.0 - 46.0 % [facility] Hemoglobin (Bld) [Mass/Vol] 13.6 g/dL 11.5 - 15.5 g/dL [facility] Immature granulocytes (Bld) [#/Vol] <0.10 k/uL [facility] Immature granulocytes/100 WBC (Bld) 0.2 % [facility] Lymphocytes (Bld) [#/Vol] 1.78 10*3/uL 1.00 - 4.00 k/uL [facility] Lymphocytes/100 WBC (Bld) 33.6 % [facility] MCH (RBC) [Entitic mass] 30.3 pg 26.0 - 34.0 pg [facility] MCHC (RBC) [Mass/Vol] 32.5 g/dL 30.5 - 36.0 g/dL [facility] MCV (RBC) [Entitic vol] 93.3 fL 80.0 - 100.0 fL [facility] Monocytes (Bld) [#/Vol] 0.46 10*3/uL <0.87 k/uL [facility] Monocytes/100 WBC (Bld) 8.7 % [facility] Neutrophils (Bld) [#/Vol] 2.94 10*3/uL 1.45 - 7.50 k/uL [facility] Neutrophils/100 WBC (Bld) 55.4 % [facility] Nucleated RBC (Bld) [#/Vol] <0.01 k/uL [facility] Nucleated RBC/100 WBC (Bld) [Ratio] 0.0 /100 WBC [facility] Platelet mean volume (Bld) [Entitic vol] 9.8 fL 9.0 - 12.7 fL [facility] Platelets (Bld) [#/Vol] 282 10*3/uL 150 - 400 k/uL [facility] RBC (Bld) [#/Vol] 4.49 10*6/uL 3.90 - 5.2 0 m/uL [facility] WBC (Bld) [#/Vol] 5.30 10*3/uL 3.70 - 11. 00 k/uL [facility] Comprehensive metabolic 2000 panelon 06-13-2022 Albumin [Mass/Vol] 4.3 g/dL 3.9 - 4.9 g/dL [facility] ALP [Catalytic activity/Vol] 76 U/L 34 - 123 U/L [facility] ALT [Catalytic activity/Vol] 15 U/L 7 - 38 U/L [facility] Anion gap [Moles/Vol] 11 mmol/L 9 - 18 mmol/L [facility] AST [Catalytic activity/Vol] 25 U/L 13 - 35 U/L [facility] Bilirubin [Mass/Vol] 0.4 mg/dL 0.2 - 1.3 mg/dL [facility] Calcium [Mass/Vol] 9.8 mg/dL 8.5 - 10. 2 mg/dL [facility] Chloride [Moles/Vol] 106 mmol/L High 97 - 105 mmol/L [facility] CO2 [Moles/Vol] 25 mmol/L 22 - 30 mmol/L [facility] Creatinine [Mass/Vol] 0.67 mg/dL 0.58 - 0.96 mg/dL [facility] Estimated Glomerular Filtration Rate 99 mL/min/1.73m >=60 mL/min/1.73m [facility] Glucose [Mass/Vol] 88 mg/dL 74 - 99 mg/dL [facility] Potassium [Moles/Vol] 5.4 mmol/L High 3.7 - 5.1 mmol/L [facility] Protein [Mass/Vol] 6.6 g/dL 6.3 - 8.0 g/dL [facility] Sodium [Moles/Vol] 142 mmol/L 136 - 144 mmol/L [facility] Urea nitrogen [Mass/Vol] 13 mg/dL 7 - 21 mg/dL [facility] ESR Westergren method (Bld) [Velocity]on 06-13-2022 ESR (Bld) [Velocity] 5 mm/h 0 - 20 mm/hr [facility] Lipid 1996 panelon 2 Cholesterol [Mass/Vol] 165 mg/dL <200 mg/dL [facility] Cholesterol in HDL [Mass/Vol] 51 mg/dL >39 mg/dL [facility] Cholesterol in LDL [Mass/Vol] 100 mg/dL High <100 mg/dL [facility] Cholesterol in LDL/Cholesterol in HDL [Mass ratio] 1.96 {ratio} <2.54 [facility] Cholesterol in VLDL [Mass/Vol] 14 mg/dL <30 mg/dL [facility] Cholesterol non HDL [Mass/Vol] 114 mg/dL <130 mg/dL [facility] Cholesterol.total/ Cholesterol in HDL [Mass ratio] 3.24 {ratio} <5.10 [facility] Fasting Time 12 hrs [facility] Triglyceride [Mass/Vol] 69 mg/dL <150 mg/dL [facility] VITAMIN D 25 HYDROXYon 06-13 25-hydroxyvitamin D3 [Mass/Vol] 44.8 ng/mL 31.0 - 80.0 ng/mL [facility] XR WRIST INJURY 4V PA/LAT/OB L/SCAPH RIGHTon 01-11-2022 [facility] XR Wrist - right 4 Viewson 0 01-11-2022 IMPRESSION: Findings are suggestive of degenerative changes in the first carpometacarpal joint. No acute fractures demonstrated. Quickbooks Bookkeeper: ROSA Transcribe Date/Time: Jan 11 2022 10:47A Dictated [...] tissue swelling. ZZZ_DO_NOT_USE _DIVISION OF RADIOLOGY Provider, [facility] - 01/11/2022 * * *Final Report* * [...] first carpometacarpal joint. No acute fractures demonstrated. Quickbooks Bookkeeper: ROSA Transcribe Date/Time: Jan 11 2022 10:47A Dictated by : SUMMER ESTRELLA MD This examination was interpreted and the report reviewed and electronically signed by: SUMMER ESTRELLA MD on Jan 11 2022 10:53AM EST [facility] Radiology Study observation (narrative) [facility] XR Wrist - right 4 ViewsOrde red By: Ccf Provider on 01-11-2022 [facility] CASE MANAGEMon 05-10-2021 CASE MANAGEM HNO ID: [id number] Author: BILL Arevalo Service: ? Author Type: Drug Abuse Social Worker Type: Care Mgt Progress Note Filed: 05/10/2021 1:33 PM Note Text: BEHAVIORAL HEALTH SOCIAL WORK DISCHARGE NOTE SERVICE DATE: 05/10/2021 SERVICE TIME: 1:31 PM Discharge Information Row Name Admission (Current) from 05/07/[address] Psychiatry Follow-Up Appointment Provider Name Dr. Travis Address [address], [facility], [facility], [place] [address] Appointment Date ? Requested to coordinate on own Appointment Time Requested to coordinate on own Counselor Follow-Up Appointment Counselor Name La Nena Quiroz [facility] ([place]) Address / Phone # [phone], [place] [address] / Appointment Date 05/25/21 Appointment Time 12:30 pm Additional Instructions This will be a virtual appointment via [employer] Discharge Disposition Discharge Disposition Home with Family/Friend Additional Discharge Information Additional Discharge Resources In a mental health emergency please call Crisis: [phone] Additional Discharge Follow Up Information For additional support go to [email or web address] AND go to [email or web address] Patient/Drip Box Tender Agreeable With Discharge Plan: Yes FREEDOM OF CHOICE EXPLAINED? Yes. A list of appropriate referrals presented to/discussed with Patient on 05/10/21 at 1:31 pm [facility]-owned/affiliated facilities and agencies have been identified Patient/Drip Box Tender Given/Explained Medicare Discharge Notice (IM letter): Not Applicable TRANSPORTATION ARRANGEMENTS: Taxi Cab Voucher, pt parked car at [facility] [place] PRESCRIPTIONS FILLED PRIOR TO DISCHARGE: Yes, faxed to outside pharmacy: Taz Lara in [facility] ADDITIONAL NOTES: Per treating provider pt to [...] DATE: May 10, 2021 TIME: 1:33 PM [facility] 05-10-2021 [facility] HNO ID: [id number] Author: Landon Villatoro MD Service: Psychiatry Author Type: Physician Type: Discharge Summary Filed: 07/05/2021 3:55 PM Note Text: DISCHARGE SUMMARY BEHAVIORAL HEALTH PATIENT NAME: Giovanna Nation ADMISSION DATE: 05/07/2021 DISCHARGE DATE: 05/10/2021 ATTENDING PHYSICIAN: Tianna Sherwood APRN.CNP Code Status: Not on file Highest Readmission [...] 1. Vitamin D deficiency OTC NUTRITIONAL SUPPLEMENT PulmOne, once daily womens Copper 2 mg daily Fish Oil : Super Fisol, [address] Historical Med ketoconazole (NIZORAL) 2 % cream Apply a thin layer to affected area twice daily for 2 weeks, then once weekly for maintenance. Normal, Disp-30 g, R-2 Dx: 1. Seborrheic dermatitis STOP taking these medications ergocalciferol 50,000 unit capsule (VITAMIN D2, DRISDOL) Comments: Reason for Stopping: Ipratropium Orlando (ATROVENT) 21 mcg (0.03 %) nasal spray Comments: Reason for Stopping: cyanocobalamin (VITAMIN B-12) 1,000 mcg tab Comments: Reason for Stopping: Blood Pressure Monitor Comments: Reason for Stopping: Omeprazole Magnesium (PRILO (more content not included)... [facility] NURSING PROGon 05-10-2021 NURSING PROG HNO ID: [id number] Author: Yvonne Gastelum RN Service: Nursing Author Type: Registered Nurse Type: Nursing Progress Note Filed: 05/10/2021 2:44 PM Note Text: Nursing Progress Note Patient Name: Giovanna Nation Patient Location: [id number]/[address] 53-01 Daily Note: Pt calm, cooperative, pleasant. Present [...] returned. Left unit at 1440 with tax tack picker. This note was completed by: Yvonne Gastelum [facility] NURSING PROG HNO ID: [id number] Author: Rhonda Sierra RN Service: Behavioral Health Author Type: Registered Nurse Type: Nursing Progress Note Filed: 05/10/2021 2:53 AM Note Text: Nursing Progress Note Patient Name: Giovanna Nation Patient Location: [id number]/[facility] Daily Note:Pt resting quietly in bed monitor for safety q 15 min This note was completed by: Rhonda Sierra [facility] NURSING PROG HNO ID: [id number] Author: Kathe Armando RN Service: ? Author Type: Registered Nurse Type: Nursing Progress Note Filed: 05/09/2021 11:04 PM Note Text: Nursing Progress Note Patient Name: Giovanna Nation Patient Location: [id number]/[address] Daily Note: Anxious, restless, and pacing at [...] This note was completed by: Kathe Armando [facility] CASE MANAGEMon 05-09-2021 CASE MANAGEM HNO ID: [id number] Author: BILL Arevalo Service: ? Author Type: Drug Abuse Social Worker Type: Care Mgt Progress Note Filed: 05/09/2021 3:58 PM Note Text: BEHAVIORAL HEALTH SOCIAL WORK PROGRESS NOTE SERVICE DATE: 05/09/2021 SERVICE TIME: 3:10pm Patient reviewed in treatment team; pt has depression and anxiety mainly around COVID and attends some groups. SW and BHAVYAI engaged with patient in the [...] discharge records come from medical records of [facility] at a later date. Patient refused SW [...] May 09, 2021 TIME: 3:10 PM Supervising Drug Abuse Social Worker Attestation I have reviewed the above documentation. I agree with the findings and plan as documented. SIGNATURE: BILL Arevalo PATIENT NAME: Giovanna Nation DATE: May 09, 2021 TIME: 3:58 PM [facility] NURSING PROGon 05-09-2021 NURSING PROG HNO ID: [id number] Author: Dione Lal RN Service: Behavioral Health Author Type: Registered Nurse Type: Nursing Progress Note Filed: 05/09/2021 3:12 PM Note Text: Nursing Progress Note Patient Name: Giovanna Nation Patient Location: [id number]/[place] [address] 53- Daily Note: Visible on the unit, compliant with meds and care. Cooperative and remained in control this shift. Denies si/hi/avh. Will continue to monitor. This note was completed by: Dione Lal [facility] NURSING PROG HNO ID: [id number] Author: Nhung Ward, RN Service: Nursing Author Type: Registered Nurse Type: Nursing Progress Note Filed: 05/09/2021 6:13 AM Note Text: Nursing Progress Note Patient Name: Giovanna Nation Patient [facility] [id number][facility] Daily Note: Received report and assumed [...] was experiencing difficulty sleeping due to roommate. Loom Fixer Apprentice offered patient earplugs. Patient was somewhat hesitant but accepted. Patient seen in room, sleeping, 1 hour later. 0600 Patient verbalized favorable results with ear plug uses. Asked for Tylenol for headache, given. Patient slept 8 hrs, Broset-0. This note was completed by: Nhung Ward Normal [facility] TSHon 05-09-2021 TSH Qn 0.535 m[IU]/L Normal 0.270-4.200 [facility] Comment on above: Performed By: #### T SH ####[facility] [place], [place] [phone] Vitamin B12on 05-09-2021 Cobalamin (Vitamin B12) [Mass/Vol] pg/mL High 232-1245 [facility] Comment on above: Performed By: #### B 12 #### [facility] [address] [place], [place] [id number] #### VITD #### [facility] [address] [place] [address] Vitamin D 25 Hydroxyon 05-09 Vitamin D 25 Hydroxy 44.8 ng/mL Normal 31.0-80.0 [facility] Comment on above: Result Comment: Clas sification of 25 [place] Vitamin D status: Insufficiency/Moderate Deficiency: < or = 30 ng/mL Sufficiency/Optimal Levels: 31 to 80 ng/mL Toxicity: > 100 ng/mL Test performed by chemiluminescent immunoassay. Performed By: #### B 12 ####[address] [phone]#### VITD ####[place] [phone] Hemoglobin A1con 05-08-2021 Glucose [Mass/Vol] 100 mg/dL Normal [facility] Comment on above: Result Comment: eAG: (Estimated average glucose) is a calculated value from HgbA1c and is sales and merchandising representative of the average blood glucose level in the last 2-3 month period. Performed By: #### H BA1C ####[place] [phone]#### LIPB ####[address], [phone] HbA1c (Bld) [Mass fraction] 5.1 % Normal 4.3-5.6 [facility] Comment on above: Result Comment: Amer ican Diabetes Association guidelines indicate that patients with HgbA1c in the range 5.7-6.4% are at increased risk for development of diabetes, and intervention by lifestyle modification may be beneficial. HgbA1c greater or equal to 6.5% is considered diagnostic of diabetes. Performed By: #### H BA1C ####[place] [phone]#### LIPB ####[address]., [place] [phone] Lipid Panel, [place] 021 Cholesterol [Mass/Vol] 175 mg/dL Normal <200 [facility] Comment on above: Result Comment: <200 mg/dL, Desirable 200-239 mg/dL, Borderline high >239 mg/dL, High Performed By: #### H BA1C ####[place] [address] [address] [place] [phone]#### LIPB ####[address] [employer], [place] [phone] Cholesterol in HDL [Mass/Vol] 54 mg/dL Normal >39 [facility] Comment on above: Result Comment: 40-5 9 mg/dL, Acceptable >59 mg/dL, High: Negative risk factor for coronary heart disease <40 mg/dL, Low: Positive risk factor for coronary heart disease Performed By: #### H BA1C ####[place] [address] [address] [place] [phone]#### LIPB ####[address] [employer], [phone] Cholesterol in LDL [Mass/Vol] 103 mg/dL High <100 [facility] Comment on above: Result Comment: <100 mg/dL, Optimal 100-129 mg/dL, Near optimal/above optimal 130-159 mg/dL, Borderline high 160-189 mg/dL, High >189 mg/dL, Very high Secondary prevention optimal LDL Cholesterol levels are recommended to be < 70 mg/dL Performed By: #### H BA1C ####[place] [address] [address] [place] [phone]#### LIPB ####[address] [employer], [phone] Fasting Time Unknown Normal [facility] Comment on above: Performed By: #### H BA1C ####[place] [address] [place] [address] [phone]#### LIPB ####[address] [employer], [phone] LDL:HDL Ratio 1.91 Normal <2.54 [facility] Comment on above: Result Comment: Vicenta castro: 1. National Cholesterol Education Program ATP III Guideline At-A-Glance Quick Desk Reference: National Heart, Lung, and Blood [place]. National Institutes of Health. 2001: NIH Publication No. 01-3305. 2. An International Atherosclerosis Society position paper: global recommendations for the management of dyslipidemia: executive summary, Atherosclerosis. 2014: 232(2):410-413. Performed By: #### H BA1C ####[phone]#### LIPB ####[address], [place] [phone] Non HDL Cholesterol 121 mg/dL Normal <130 [facility] Comment on above: Result Comment: <130 mg/dL, Optimal 130-159 mg/dL, Near optimal/above optimal 160-189 mg/dL, Borderline high 190-219 mg/dL, High >219 mg/dL, Very high Secondary prevention optimal non HDL Cholesterol levels are recommended to be < 100 mg/dL Performed By: #### H BA1C ####[phone]#### LIPB ####[place] [phone] TC:HDL Ratio 3.24 Normal <5.10 [facility] Comment on above: Performed By: #### H BA1C ####[place] [phone]#### LIPB ####[place] [phone] Triglyceride [Mass/Vol] 90 mg/dL Normal <150 [facility] Comment on above: Result Comment: <150 mg/dL, Normal 150-199 mg/dL, Borderline high 200-499 mg/dL, High >499 mg/dL, Very high Performed By: #### H BA1C ####[address], [place] [phone]#### LIPB ####[address] [phone] VLDL Cholesterol 18 mg/dL Normal <30 [facility] Comment on above: Performed By: #### H BA1C ####[address] [phone]#### LIPB ####[address] [phone] NURSING PROGon 05-08-2021 NURSING PROG HNO ID: [id number] Author: Yvonne Gastelum RN Service: Nursing Author Type: Registered Nurse Type: Nursing Progress Note Filed: 05/08/2021 6:06 PM Note Text: Nursing Progress Note Patient Name: Giovanna Nation Patient Location: [id number]/[place] [address] 53- Daily Note: Pt appears restless, such [...] This note was completed by: Yvonne Gastelum [facility] NURSING PROG HNO ID: [id number] Author: Nhung Ward RN Service: Nursing Author Type: Registered Nurse Type: Nursing Progress Note Filed: 05/08/2021 6:22 AM Note Text: Nursing Progress Note Patient Name: Giovanna Nation Patient Location: [id number]/[place] [address] 53-01 Daily Note: Received report and assumed care of patient at 1900. Patient seen in room, occasionally walking around unit. Pleasant, somewhat demanding. Asked for nicorette gum, given. Med compliant whole with water. Denies pain, SI. 0330 Patient approached staff, verbalized headache. Tylenol given. Patient told bid writer that she feels uncomfortable when other patients become irritable. Loom Fixer Apprentice encouraged patient to let staff members know when she is feeling uncomfortable, and that interventions are taken to maintain safety on unit. 0600 Patient seen in day area, stated My roommate is snoring, bid writer offered earplugs, patient stated No thank you, I would like to hear what's going on around me. Patient slept 8 hrs, Broset-0. This note was completed by: Nhung Ward [facility] HEALTH 05-07-2021 ALLIED HEALTH HNO ID: [id number] Author: ZITA Kelley Service: ? Author Type: [...] incentives work for you: Relaxation, outdoors SIGNATURE: ZITA Kelley PATIENT NAME: iGovanna Nation DATE: May 07, 2021 TIME: 12:56 PM PAGER/CONTACT #: [facility] ALLIED HEALTH HNO ID: [id number] Author: ZITA Kelley Service: ? Author Type: Therapist Type: Allied Health Filed: 05/07/2021 1:00 PM Note Text: THERAPEUTIC PROGRAMMING ASSESSMENT SERVICE DATE: 05/07/2021 SERVICE TIME: 12:58 PM RECOMMENDATIONS: Cognitive Communication Skills RSens Exercise Expressive Therapy Horticulture Leisure Skills Relaxation [...] 07, 2021 TIME: 7:16 AM PAGER/CONTACT #: [facility] CASE MGT INJESSENIA Corley 2020 CASE MGT INJESSENIA DALTON HNO ID: [id number] Author: HAILY An Service: Social Work Author Type: Drug Abuse Social Worker Type: Care Mgt Initial Assessment Filed: 05/07/2021 1:49 PM Note Text: BEHAVIORAL HEALTH SOCIAL WORK/CARE MANAGEMENT ASSESSMENT AND DISCHARGE PLAN SERVICE DATE: 05/07/2021 SERVICE TIME: 1:11 PM Reason for Admission: Per BHI: Giovanna Nation is a 60 year old female brought in to [facility] ED from Home by self for hip and back pain and suicidal ideation. ? Per Psych Consult Dr. Jus Parsons (psych resident): ? ? Consulting Service:?Psychiatry, requested by Dr. Harsha Hoff MD's team ? REASON FOR CONSULTATION:?Suicidal ideation. ? ? Subjective []?Expand by Default ? IDENTIFYING INFO:?Giovanna Nation is a 60 year old unemployed?Not female who lives alone?in [place], [place]. ?? ? History of Present Illness: [...] he is a man. Saw Dr. Alfredo ([facility]) for therapy last month and is interested in seeing her more often.? ? 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 Her childhood is described as good. She has one brother and one sister. She has friendly relationship with mother. 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 -per chart review, pt has worked at [employer] summer 2019 Financial Resources: Family Savings Food [...] Transportation (Non-Medical): Patient refused Health Insurance: PR[facility] [employer] [facility] Status (including history of combat experience): None Legal History: Patient/Drip Box Tender Denies [facility]/Spirituality: Protestantism PSYCHIATRIC HISTORY: - Psychiatrist: Dr. Sexton ([place]) - Therapist: did initial eval on 04/04 - Previous Mental Health Interventions: Medication and Hospitalization(s) - Pt jumped arou (more content not included)... [facility] CONSULTon 05-07-2021 CONSULT HNO ID: [id number] Author: Janis Saab MD Service: ? Author [...] suicide - Ischemic Heart Disease Brother 60 [place], heavy smoker, Etoh - Psychiatry Son Opoid [...] (DEFINITY), , INTRAVENOUS, DIRECTED PRN, Huma Parekh, LINK AND LINK KNITTING MACHINE OPERATOR.POLE PEELER sodium chloride 0.9 % (flush) 10 mL (BD POSIFLUSH), 10 mL, INTRAVENOUS, DIRECTED PRN, Huma Parekh, LINK AND LINK KNITTING MACHINE OPERATOR.POLE PEELER Cholecalciferol, Vitamin D3, 50 mcg (2,000 unit) cap, Take 1 capsule by mouth once daily., Disp: , Rfl: , 05/06/2021 at Unknown time cyanocobalamin (VITAMIN B-12) 1,000 mcg tab, Take 1 tablet by mouth once daily., Disp: , Rfl: , 05/06/2021 at Unknown time doxepin capsule 10 mg, Take 10 mg by mouth at bedtime as needed., Disp: , Rfl: OTC NUTRITIONAL SUPPLEMENT, [employer], once daily womens Copper 2 mg daily [...] maintenance., Disp: 30 g, Rfl: 2 Ipratropium [place] (ATROVENT) 21 mcg (0.03 %) nasal spray, [...] cm (5' 3) 44.9 kg (99 lb) 05/07/21 0627 127/92 ? ? 100 ? 05/07/21 0626 114/77 36.7 ?C (98.1 ?F) Oral 84 18 99 % ? ? Body mass index is 17.54 kg/m?. GENERAL: Healthy, alert, no distress, cooperative SKIN: No rashes or lesions. OROPHARYNX: Oropharynx normal. NECK: No jugulovenous distention, No carotid bruits, Carotid pulse normal c (more content not included)... Normal [facility] HISTORY PHYSICALon HISTORY PHYSICAL HNO ID: [id number] Author: Ilan Coronado MD Service: Psychiatry Author [...] HISTORY: Diagnoses: ADHD Current Psychiatrist: Dr. Sexton ([place]) Current Therapist: Patient denies but per chart (Dr. Alfredo) Psychiatric Hospitalization(s): 1x, 28 years ago History of Suicide Attempts: None Previous Psychiatric Medication Trials: Strattera doxepin Current Outpatient Psychiatric Medications: None PAST [...] bedtime as needed. - OTC NUTRITIONAL SUPPLEMENT PulmOne, once daily womens Copper 2 mg daily Fish Oil : Super Fisol, [address] - ergocalciferol 50,000 unit capsule (VITAMIN D2, DRISDOL) Take 1 capsule by mouth one time a week. - ketoconazole (NIZORAL) 2 % cream Apply a thin layer to affected area twice daily for 2 weeks, then once weekly for maintenance. - Ipratropium [place] (ATROVENT) 21 mcg (0.03 %) nasal spray [...] mouth once daily. (more content not included)... Normal [facility] NURSING PROGon 05-07-2021 NURSING PROG HNO ID: [id number] Author: Yvonne Gastelum RN Service: Nursing Author Type: Registered Nurse Type: Nursing Progress Note Filed: 05/07/2021 5:12 PM Note Text: Nursing Progress Note Patient Name: Giovanna Nation Patient Location: [id number]/[facility] Daily Note: Pt admitted for vague SI [...] This note was completed by: Yvonne Gastelum [facility] NUTRITIONon 05-07-2021 NUTRITION HNO ID: [id number] Author: Rohit Sampson RD Service: Nutrition Therapy [...] May 07, 2021 TIME: 2:40 PM PAGER: [phone] [facility] XR Chest PA and Lateralon IMPRESSION: No acute radiographic abnormality. Quickbooks Bookkeeper: ROSA Transcribe Date/Time: Jan 27 2021 8:24A Dictated by : EDDIE ROWLAND MD This examination was interpreted and the report reviewed and electronically signed by: EDDIE ROWLAND MD on Jan 27 2021 8:25AM [facility] DIVISION OF RADIOLOGY * * *Final [...] shadow visible. - DIVISION OF RADIOLOGY Provider, [facility] - 01/27/2021 * * *Final Report* * [...] - IMPRESSION IMPRESSION: No acute radiographic abnormality. Quickbooks Bookkeeper: ROSA Transcribe Date/Time: Jan 27 2021 8:24A Dictated by : EDDIE ROWLAND MD This examination was interpreted and the report reviewed and electronically signed by: EDDIE ROWLAND MD on Jan 27 2021 8:25AM EST [facility] XR Chest PA and LateralOrder ed By: Ccf Provider on 01-27-2021 [facility] XR Chest PA and Lateralon Radiology Study observation (narrative) [facility] Vital Signs Date Time Vital Sign Value Performing Clinician Facility 03-05-2025 17:16-0400 Diastolic blood pressure 92 mm[Hg] No Generic Provider [facility] 03-05-2025 17:16-0400 Heart rate 74 /min No Generic Provider [facility] 03-05-2025 17:16-0400 Respiratory rate 18 /min No Generic Provider [facility] 03-05-2025 17:16-0400 SaO2% (BldA) [Mass fraction] 96 % No Generic Provider [facility] 03-05-2025 17:16-0400 Systolic blood pressure 120 mm[Hg] No Generic Provider [facility] 03-05-2025 15:31-0400 Body height 162.6 cm No Generic Provider [facility] 03-05-2025 15:31-0400 Body mass index (BMI) [Ratio] 17.85 kg/m2 No Generic Provider [facility] 03-05-2025 15:31-0400 Body temperature 98.1 [degF] No Generic Provider [facility] 03-05-2025 15:31-0400 Body weight 47.17 kg No Generic Provider [facility] 02-04-2025 08:52-0400 Body mass index (BMI) [Ratio] 18.44 kg/m2 Leonarda Boykin MD Work Phone: [facility] 02-04-2025 08:52-0400 Body temperature 98.6 [degF] Leonarda Boykin MD Work Phone: [facility] 02-04-2025 08:52-0400 Body weight 47.2 kg Leonarda Boykin MD Work Phone: [facility] 02-04-2025 08:52-0400 Diastolic blood pressure 79 mm[Hg] Leonarda Boykin MD Work Phone: [facility] 02-04-2025 08:52-0400 Heart rate 71 /min Leonarda Boykin MD Work Phone: [facility] 02-04-2025 08:52-0400 SaO2% (BldA) [Mass fraction] 100 % Leonarda Boykin MD Work Phone: [facility] 02-04-2025 08:52-0400 Systolic blood pressure 118 mm[Hg] Leonarda Boykin MD Work Phone: [facility] 12-23-2024 11:40-0400 Body height 160 cm Leonarda Boykin MD Work Phone: [facility] 12-23-2024 11:40-0400 Body mass index (BMI) [Ratio] 18.71 kg/m2 Leonarda Boykin MD Work Phone: [facility] 12-23-2024 11:40-0400 Body temperature 99.1 [degF] Leonarda Boykin MD Work Phone: [facility] [facility] 12-23-2024 11:40-0400 Body weight 47.9 kg Leonarda Boykin MD Work Phone: [facility] 12-23-2024 11:40-0400 Diastolic blood pressure 72 mm[Hg] Leonarda Boykin MD Work Phone: [facility] 12-23-2024 11:40-0400 Heart rate 91 /min Leonarda Boykin MD Work Phone: [facility] 12-23-2024 11:40-0400 SaO2% (BldA) [Mass fraction] 100 % Leonarda Boykin MD Work Phone: [facility] 12-23-2024 11:40-0400 Systolic blood pressure 120 mm[Hg] Leonarda Boykin MD Work Phone: [facility] 10-03-2024 15:47-0400 Body mass index (BMI) [Ratio] 18.16 kg/m2 Leonarda Boykin MD Work Phone: [facility] 10-03-2024 15:47-0400 Body temperature 97.5 [degF] Leonarda Boykin MD Work Phone: [facility] 10-03-2024 15:47-0400 Body weight 46.5 kg Leonarda Boykin MD Work Phone: [facility] 10-03-2024 15:47-0400 Diastolic blood pressure 67 mm[Hg] Leonarda Boykin MD Work Phone: [facility] 10-03-2024 15:47-0400 Heart rate 86 /min Leonarda Boykin MD Work Phone: [facility] 10-03-2024 15:47-0400 Respiratory rate 16 /min Leonarda Boykin MD Work Phone: [facility] 10-03-2024 15:47-0400 SaO2% (BldA) [Mass fraction] 99 % Leonarda Boykin MD Work Phone: [facility] 10-03-2024 15:47-0400 Systolic blood pressure 105 mm[Hg] Leonarda Boykin MD Work Phone: [facility] 09-24-2024 09:05-0400 Body mass index (BMI) [Ratio] 17.9 kg/m2 Donna Mcneil DO Work Phone: [facility] 09-24-2024 09:05-0400 Body weight 45.81 kg Donna Mcneil DO Work Phone: [facility] 09-24-2024 09:05-0400 Diastolic blood pressure 76 mm[Hg] Donna Mcneil DO Work Phone: [facility] 09-24-2024 09:05-0400 Heart rate 75 /min Donna Mcneil DO Work Phone: [facility] 09-24-2024 09:05-0400 Systolic blood pressure 126 mm[Hg] Donna Mcneil DO Work Phone: [facility] 09-09-2024 11:53-0500 Body mass index (BMI) [Ratio] 18.01 kg/m2 Katerin Praisler-Wood LINK AND LINK KNITTING MACHINE OPERATOR.POLE PEELER Work Phone: [facility] 09-09-2024 11:53-0500 Body temperature 98.1 [degF] Katerin Praisler-Wood LINK AND LINK KNITTING MACHINE OPERATOR.POLE PEELER Work Phone: [facility] 09-09-2024 11:53-0500 Body weight 46.1 kg Katerin Praisler-Wood LINK AND LINK KNITTING MACHINE OPERATOR.POLE PEELER Work Phone: [facility] 09-09-2024 11:53-0500 Diastolic blood pressure 70 mm[Hg] Katerin Praisler-Wood LINK AND LINK KNITTING MACHINE OPERATOR.POLE PEELER Work Phone: [facility] 09-09-2024 11:53-0500 Heart rate 96 /min Katerin Praisler-Wood LINK AND LINK KNITTING MACHINE OPERATOR.POLE PEELER Work Phone: [facility] 09-09-2024 11:53-0500 Respiratory rate 18 /min Katerin Praisler-Wood LINK AND LINK KNITTING MACHINE OPERATOR.POLE PEELER Work Phone: [facility] 09-09-2024 11:53-0500 SaO2% (BldA) [Mass fraction] 98 % Katerin Praisler-Wood LINK AND LINK KNITTING MACHINE OPERATOR.POLE PEELER Work Phone: [facility] 09-09-2024 11:53-0500 Systolic blood pressure 118 mm[Hg] Katerin Ellis APRN.POLE PEELER Work Phone: [facility] 09-04-2024 15:51-0500 Diastolic blood pressure 96 mm[Hg] Carlotta Archer MD Work Phone: [facility] 09-04-2024 15:51-0500 Heart rate 82 /min Carlotta Archer MD Work Phone: [facility] 09-04-2024 15:51-0500 Respiratory rate 16 /min Carlotta Archer MD Work Phone: [facility] 09-04-2024 15:51-0500 SaO2% (BldA) [Mass fraction] 100 % Carlotta Archer MD Work Phone: [facility] 09-04-2024 15:51-0500 Systolic blood pressure 171 mm[Hg] Carlotta Archer MD Work Phone: [facility] 08-25-2024 12:53-0500 Body height 160 cm Leonarda Boykin MD Work Phone: [facility] 08-25-2024 12:53-0500 Body mass index (BMI) [Ratio] 17.93 kg/m2 Leonarda Boykin MD Work Phone: [facility] 08-25-2024 12:53-0500 Body temperature 98.6 [degF] Leonarda Boykin MD Work Phone: [facility] 08-25-2024 12:53-0500 Body weight 45.9 kg Leonarda Boykin MD Work Phone: [facility] 08-25-2024 12:53-0500 Diastolic blood pressure 78 mm[Hg] Leonarda Boykin MD Work Phone: [facility] 08-25-2024 12:53-0500 Heart rate 86 /min Leonarda Boykin MD Work Phone: [facility] 08-25-2024 12:53-0500 SaO2% (BldA) [Mass fraction] 100 % Leonarda Boykin MD Work Phone: [facility] 08-25-2024 12:53-0500 Systolic blood pressure 136 mm[Hg] Leonarda Boykin MD Work Phone: [facility] 08-08-2024 16:46-0500 Diastolic blood pressure 83 mm[Hg] Michael Flynn MD Work Phone: [facility] 08-08-2024 16:46-0500 Heart rate 74 /min Michael Flynn MD Work Phone: [facility] 08-08-2024 16:46-0500 Systolic blood pressure 145 mm[Hg] Michael Flynn MD Work Phone: [facility] 08-08-2024 16:42-0500 Body height 160 cm Michael Flynn MD Work Phone: [facility] 08-08-2024 16:42-0500 Body mass index (BMI) [Ratio] 17.81 kg/m2 Michael Flynn MD Work Phone: [facility] 08-08-2024 16:42-0500 Body temperature 97.39 [degF] Michael Flynn MD Work Phone: [facility] 08-08-2024 16:42-0500 Body weight 45.6 kg Michael Flynn MD Work Phone: [facility] 08-08-2024 16:42-0500 Respiratory rate 16 /min Michael Flynn MD Work Phone: [facility] 08-08-2024 16:42-0500 SaO2% (BldA) [Mass fraction] 100 % Michael Flynn MD Work Phone: [facility] 07-28-2024 19:56-0500 Body height 160 cm Leonarda Boykin MD Work Phone: [facility] 07-28-2024 19:56-0500 Body mass index (BMI) [Ratio] 17.58 kg/m2 Leonarda Boykin MD Work Phone: [facility] 07-28-2024 19:56-0500 Body temperature 98.1 [degF] Leonarda Boykin MD Work Phone: [facility] 07-28-2024 19:56-0500 Body weight 45 kg Leonarda Boykin MD Work Phone: [facility] 07-28-2024 19:56-0500 Diastolic blood pressure 84 mm[Hg] Leonarda Boykin MD Work Phone: [facility] 07-28-2024 19:56-0500 Heart rate 86 /min Leonarda Boykin MD Work Phone: [facility] 07-28-2024 19:56-0500 SaO2% (BldA) [Mass fraction] 100 % Leonarda Boykin MD Work Phone: [facility] 07-28-2024 19:56-0500 Systolic blood pressure 132 mm[Hg] Leonarda Boykin MD Work Phone: [facility] 07-07-2024 10:46-0500 Body height 160 cm Leonarda Boykin MD Work Phone: [facility] 07-07-2024 10:46-0500 Body mass index (BMI) [Ratio] 17.3 kg/m2 Leonarda Boykin MD Work Phone: [facility] 07-07-2024 10:46-0500 Body temperature 97.11 [degF] Leonarda Boykin MD Work Phone: [facility] 07-07-2024 10:46-0500 Body weight 44.3 kg Leonarda Boykin MD Work Phone: [facility] 07-07-2024 10:46-0500 Diastolic blood pressure 68 mm[Hg] Leonarda Boykin MD Work Phone: [facility] 07-07-2024 10:46-0500 Heart rate 95 /min Leonarda Boykin MD Work Phone: [facility] 07-07-2024 10:46-0500 SaO2% (BldA) [Mass fraction] 100 % Leonarda Boykin MD Work Phone: [facility] 07-07-2024 10:46-0500 Systolic blood pressure 116 mm[Hg] Leonarda Boykin MD Work Phone: [facility] 07-05-2024 10:30-0500 Body mass index (BMI) [Ratio] 17.65 kg/m2 Tapan Merchant MD Work Phone: [facility] 07-05-2024 10:30-0500 Body temperature 97.7 [degF] Tapan Merchant MD Work Phone: [facility] 07-05-2024 10:30-0500 Body weight 45.2 kg Tapan Merchant MD Work Phone: [facility] 07-05-2024 10:30-0500 Diastolic blood pressure 82 mm[Hg] Tapan Merchant MD Work Phone: [facility] 07-05-2024 10:30-0500 Heart rate 82 /min Tapan Merchant MD Work Phone: [facility] 07-05-2024 10:30-0500 Respiratory rate 20 /min Tapan Merchant MD Work Phone: [facility] 07-05-2024 10:30-0500 SaO2% (BldA) [Mass fraction] 99 % Tpaan Merchant MD Work Phone: [facility] 07-05-2024 10:30-0500 Systolic blood pressure 120 mm[Hg] Tapan Merchant MD Work Phone: [facility] 06-05-2024 09:55-0500 Diastolic blood pressure 78 mm[Hg] Carlotta Archer MD Work Phone: [facility] 06-05-2024 09:55-0500 Heart rate 88 /min Carlotta Archer MD Work Phone: [facility] 06-05-2024 09:55-0500 Respiratory rate 16 /min Carlotta Archer MD Work Phone: [facility] 06-05-2024 09:55-0500 SaO2% (BldA) [Mass fraction] 100 % Carlotta Archer MD Work Phone: [facility] 06-05-2024 09:55-0500 Systolic blood pressure 113 mm[Hg] Carlotta Archer MD Work Phone: [facility] 03-05-2024 08:09-0400 Body mass index (BMI) [Ratio] 17.61 kg/m2 Carlotta Archer MD Work Phone: [facility] 03-05-2024 08:09-0400 Body weight 45.1 kg Carlotta Archer MD Work Phone: [facility] 03-05-2024 08:09-0400 Diastolic blood pressure 74 mm[Hg] Carlotta Arhcer MD Work Phone: [facility] 03-05-2024 08:09-0400 Heart rate 82 /min Carlotta Archer MD Work Phone: [facility] 03-05-2024 08:09-0400 Respiratory rate 16 /min Carlotta Archer MD Work Phone: [facility] 03-05-2024 08:09-0400 SaO2% (BldA) [Mass fraction] 99 % Carlotta Archer MD Work Phone: [facility] 03-05-2024 08:09-0400 Systolic blood pressure 107 mm[Hg] Carlotta Archer MD Work Phone: [facility] 01-22-2024 15:42-0400 Body height 160 cm Michael Flynn MD Work Phone: [facility] 01-22-2024 15:42-0400 Body mass index (BMI) [Ratio] 17.93 kg/m2 Michael Flynn MD Work Phone: [facility] 01-22-2024 15:42-0400 Body temperature 98.1 [degF] Michael Flynn MD Work Phone: [facility] 01-22-2024 15:42-0400 Body weight 45.9 kg Michael Flynn MD Work Phone: [facility] 01-22-2024 15:42-0400 Diastolic blood pressure 77 mm[Hg] Michael Flynn MD Work Phone: [facility] 01-22-2024 15:42-0400 Heart rate 86 /min Michael Flynn MD Work Phone: [facility] 01-22-2024 15:42-0400 Respiratory rate 16 /min Michael Flynn MD Work Phone: [facility] 01-22-2024 15:42-0400 SaO2% (BldA) [Mass fraction] 99 % Michael Flynn MD Work Phone: [facility] 01-22-2024 15:42-0400 Systolic blood pressure 112 mm[Hg] Michael Flynn MD Work Phone: [facility] 12-28-2023 10:39-0400 Body height 160 cm Michael Flynn MD Work Phone: [facility] 12-28-2023 10:39-0400 Body mass index (BMI) [Ratio] 17.81 kg/m2 Michael Flynn MD Work Phone: [facility] 12-28-2023 10:39-0400 Body temperature 98.01 [degF] Michael Flynn MD Work Phone: [facility] 12-28-2023 10:39-0400 Body weight 45.6 kg Michael Flynn MD Work Phone: [facility] 12-28-2023 10:39-0400 Diastolic blood pressure 75 mm[Hg] Michael Flynn MD Work Phone: [facility] 12-28-2023 10:39-0400 Heart rate 92 /min Michael Flynn MD Work Phone: [facility] 12-28-2023 10:39-0400 Respiratory rate 16 /min Michael Flynn MD Work Phone: [facility] 12-28-2023 10:39-0400 SaO2% (BldA) [Mass fraction] 98 % Michael Flynn MD Work Phone: [facility] 12-28-2023 10:39-0400 Systolic blood pressure 107 mm[Hg] Michael Flynn MD Work Phone: [facility] 12-17-2023 09:11-0400 Diastolic blood pressure 75 mm[Hg] Hortencia Ivan DO Work Phone: [facility] Comment on above: SIMONA BP 12-17-2023 09:11-0400 Systolic blood pressure 112 mm[Hg] Hortencia Ivan DO Work Phone: [facility] Comment on above: [facility] 12-17-2023 09:05-0400 Body mass index (BMI) [Ratio] 17.56 kg/m2 Hortencia Ivan DO Work Phone: [facility] 12-17-2023 09:05-0400 Body weight 46.4 kg Hortencia Ivan DO Work Phone: [facility] 12-17-2023 09:05-0400 Heart rate 88 /min Hortencia Iavn DO Work Phone: [facility] 11-20-2023 15:00-0400 Heart rate 72 /min Awilda Darby PT Work Phone: [facility] 11-13-2023 12:12-0400 Body mass index (BMI) [Ratio] 18.24 kg/m2 Daniel hWatley APRN.POLE PEELER Work Phone: [facility] 11-13-2023 12:12-0400 Body temperature 97.9 [degF] Daniel Whatley APRN.POLE PEELER Work Phone: [facility] 11-13-2023 12:12-0400 Body weight 48.2 kg Daniel Whatley APRN.POLE PEELER Work Phone: [facility] 11-13-2023 12:12-0400 Diastolic blood pressure 68 mm[Hg] Daniel Chacorta LINK AND LINK KNITTING MACHINE OPERATOR.POLE PEELER Work Phone: [facility] 11-13-2023 12:12-0400 Heart rate 72 /min Daniel Chacorta LINK AND LINK KNITTING MACHINE OPERATOR.POLE PEELER Work Phone: [facility] 11-13-2023 12:12-0400 Respiratory rate 16 /min Daniel Chacorta LINK AND LINK KNITTING MACHINE OPERATOR.POLE PEELER Work Phone: [facility] 11-13-2023 12:12-0400 Systolic blood pressure 102 mm[Hg] Daniel Whatley LINK AND LINK KNITTING MACHINE OPERATOR.POLE PEELER Work Phone: [facility] 10-15-2023 10:00-0400 Body weight 47.6 kg Nhung Saavedra LINK AND LINK KNITTING MACHINE OPERATOR.POLE PEELER Work Phone: [facility] 10-15-2023 10:00-0400 Diastolic blood pressure 67 mm[Hg] Nhung Saavedra LINK AND LINK KNITTING MACHINE OPERATOR.POLE PEELER Work Phone: [facility] 10-15-2023 10:00-0400 Heart rate 90 /min Nhung Keri LINK AND LINK KNITTING MACHINE OPERATOR.POLE PEELER Work Phone: [facility] 10-15-2023 10:00-0400 Systolic blood pressure 102 mm[Hg] Nhung Mullernar LINK AND LINK KNITTING MACHINE OPERATOR.POLE PEELER Work Phone: [facility] 05-21-2023 11:18-0500 Body weight 41.91 kg Hortencia Ivan DO Work Phone: [facility] 05-21-2023 11:18-0500 Diastolic blood pressure 73 mm[Hg] Hortencia Ivan DO Work Phone: [facility] 05-21-2023 11:18-0500 Heart rate 87 /min Hortencia Ivan DO Work Phone: [facility] 05-21-2023 11:18-0500 Systolic blood pressure 116 mm[Hg] Hortencia Ivan DO Work Phone: [facility] 05-07-2023 09:12-0400 Diastolic blood pressure 87 mm[Hg] Hortencia Ivan DO Work Phone: [facility] 05-07-2023 09:12-0400 Systolic blood pressure 147 mm[Hg] Hortencia Ivan DO Work Phone: [facility] 05-07-2023 09:06-0400 Body weight 42.91 kg Hortencia Ivan DO Work Phone: [facility] 05-07-2023 09:06-0400 Heart rate 96 /min Hortencia Ivan DO Work Phone: [facility] 01-08-2023 12:19-0400 Body weight 45.5 kg Atiya Holly MD Work Phone: [facility] 01-08-2023 12:19-0400 Diastolic blood pressure 93 mm[Hg] Atiya Holly MD Work Phone: [facility] 01-08-2023 12:19-0400 Heart rate 95 /min Atiya Holly MD Work Phone: [facility] 01-08-2023 12:19-0400 Systolic blood pressure 140 mm[Hg] Atiya Holly MD Work Phone: [facility] 06-13-2022 11:04-0500 Body weight 44.45 kg Hortencia Ivan DO Work Phone: [facility] 06-13-2022 11:04-0500 Diastolic blood pressure 82 mm[Hg] Hortencia Ivan DO Work Phone: [facility] 06-13-2022 11:04-0500 Heart rate 88 /min Hortencia Ivan DO Work Phone: [facility] 06-13-2022 11:04-0500 SaO2% (BldA) [Mass fraction] 100 % Hotrencia Ivan DO Work Phone: [facility] 06-13-2022 11:04-0500 Systolic blood pressure 138 mm[Hg] Hortencia Ivan DO Work Phone: [facility] 01-11-2022 10:07-0400 Body temperature 97.9 [degF] Tapan Merchant MD Work Phone: [facility] 01-11-2022 10:07-0400 Body weight 44.86 kg Tapan Merchant MD Work Phone: [facility] 01-11-2022 10:07-0400 Diastolic blood pressure 80 mm[Hg] Tapan Merchant MD Work Phone: [facility] 01-11-2022 10:07-0400 Heart rate 87 /min Tapan Merchant MD Work Phone: [facility] 01-11-2022 10:07-0400 Respiratory rate 21 /min Tapan Merchant MD Work Phone: [facility] 01-11-2022 10:07-0400 SaO2% (BldA) [Mass fraction] 99 % Tapan Merchant MD Work Phone: [facility] 01-11-2022 10:07-0400 Systolic blood pressure 130 mm[Hg] Tapan Merchant MD Work Phone: [facility] Encounters Encounter Date Encounter Type Care Provider Facility Start: 03-31-2025 ambulatory Leonarda Distel Facility:[facility] Start: 03-30-2025 End: 03-30-2025 ambulatory Juliano Mollison Facility:[facility] Start: 03-25-2025 ambulatory Leonarda Dist Facility:[facility] Start: 03-23-2025 End: 03-23-2025 ambulatory Leonarda Distel Facility:[facility] Start: 03-18-2025 End: 03-18-2025 ambulatory Juliano Mollison Facility:[facility] Start: 03-05-2025 End: 03-05-2025 Emergency department patient visit NO ASSIGNED PCP GENERIC PROVIDER [facility] Comment on above: Periorbital ecchymos is of right eye, initial encounter (Primary Dx) Start: 03-05-2025 End: 03-05-2025 ambulatory Leonarda Distel Facility:[facility] Start: 03-03-2025 End: 03-03-2025 ambulatory Juliano Mollison Facility:[facility] Start: 02-27-2025 ambulatory Juliano Mollison Facility :[facility] Start: 02-23-2025 End: 02-23-2025 ambulatory Leonarda Boykin Facility:[facility] Start: 02-09-2025 End: 02-10-2025 Follow-up encounter Leonarda Boykin MD Work Phone: [facility] Comment on above: Results Start: 02-04-2025 ambulatory LEONARDA ASHUTOSH Facility:[facility] Start: 02-04-2025 End: 02-04-2025 Subsequent hospital visit by physician X[facility] Work Phone: Radiology Comment on above: Right hip pain [M25. 551] Start: 02-04-2025 End: 02-04-2025 Office outpatient visit 25 minutes Leonarda Boykin MD Work Phone: [facility] Comment on above: Right hip pain (Prim jd Dx); Vertigo; Tendinopathy of right gluteus medius Start: 02-04-2025 End: 02-04-2025 ambulatory LEONARDA BOYKIN Facility:[facility] Start: 12-29-2024 End: 12-30-2024 Telephone encounter Leonarda Boykin MD Work Phone: [employer] Comment on above: Question Start: 12-23-2024 End: 12-23-2024 Office outpatient visit 25 minutes Leonarda Boykin MD Work Phone: [facility] [employer] Comment on above: Cervical stenosis of spinal canal (Primary Dx); Lumbar spondylolysis; Left hip pain Start: 12-23-2024 End: 12-23-2024 ambulatory LEONARDA DISTDAIJA Facility:[facility] Start: 12-17-2024 End: 12-17-2024 ambulatory Juliano Mollison Facility:[facility] Start: 12-08-2024 End: 12-08-2024 Emergency department patient visit Sheng Ward Facility:[facility] Start: 11-28-2024 End: 11-28-2024 ambulatory Derrell Alexandria Facility:[facility] Start: 11-25-2024 End: 11-25-2024 ambulatory No Primary Care Physician Facility:[facility] Start: 11-19-2024 ambulatory Derrell Hollingsworth Facility:[facility] Start: 11-17-2024 End: 11-18-2024 Telephone encounter Leonarda Boykin MD Work Phone: [facility] Comment on above: Orders; Consult (Gas tro provider) Start: 10-31-2024 End: 10-31-2024 ambulatory Derrell Hollingsworth Facility:[facility] Start: 10-23-2024 End: 10-23-2024 ambulatory No Primary Care Physician Facility:[facility] Start: 10-03-2024 End: 10-03-2024 ambulatory [facility] Facility:[facility] Start: 10-03-2024 End: 10-03-2024 Office outpatient visit 25 minutes Leonarda Boykin MD Work Phone: [facility] Comment on above: Lumbar spondylolysis (Primary Dx); Myalgias; Venous congestion; Cervical stenosis of spinal canal Start: 09-24-2024 End: 09-24-2024 [facility] Facility:[facility] Start: 09-24-2024 End: 09-24-2024 Patient encounter procedure Donna Mcneil DO Work Phone: Vascular Medicine Comment on above: Tingling in extremit ies (Primary Dx); Anxiety about health Start: 09-16-2024 End: 09-16-2024 [facility] Facility:[facility] Start: 09-16-2024 End: 09-16-2024 Patient encounter procedure Shi Montenegro Work Phone: Podiatry Comment on above: Porokeratosis (Prima ry Dx); Raynaud's disease without gangrene Start: 09-15-2024 End: 09-15-2024 Telephone encounter Carlotta Archer MD Work Phone: [facility] Comment on above: Patient Update (Reha b evaluation ) Start: 09-09-2024 End: 09-09-2024 ambulatory [facility] Facility:[facility] Start: 09-09-2024 End: 09-09-2024 Office outpatient visit 15 minutes Katerin Ellis APRN.CNP Work Phone: [facility] Comment on above: Bacterial sinusitis (Primary Dx); Acute otitis media, left; Oral thrush Start: 09-04-2024 End: 09-04-2024 ambulatory LEONARDA BOYKIN Facility:[facility] Start: 09-04-2024 End: 09-04-2024 Patient encounter procedure Carlotta Archer MD Work Phone: Neurology Comment on above: Myalgias Start: 09-03-2024 End: 09-05-2024 Telephone encounter Leonarda Boykin MD Work Phone: [facility] Comment on above: Results Start: 08-25-2024 End: 08-25-2024 Follow-up encounter Michael Flynn MD Work Phone: [facility] Start: 08-25-2024 End: 08-25-2024 Patient encounter procedure Leonarda Boykin MD Work Phone: [facility] Comment on above: Myalgias (Primary Dx ); Cold intolerance Start: 08-25-2024 End: 08-25-2024 ambulatory Michael Flynn MD Work Phone: [facility] Comment on above: Medication Problem Start: 08-20-2024 End: 08-20-2024 Emergency department patient visit MICHAEL FLYNN Facility:[facility] Start: 08-16-2024 End: 08-16-2024 Orders Only Michael Flynn MD Work Phone: [facility] Comment on above: Raynaud's disease wi thout gangrene (Primary Dx) Start: 08-11-2024 End: 08-16-2024 Telephone encounter Michael Flynn MD Work Phone: [facility] Comment on above: Returning Patient's Call Start: 08-08-2024 End: 08-08-2024 ambulatory MICHAEL FLYNN Facility:[facility] Start: 08-08-2024 End: 08-08-2024 Office outpatient visit 25 minutes Michael Flynn MD Work Phone: [facility] Comment on above: Raynaud's disease wi thout gangrene (Primary Dx); Primary hypertension; Pain in both feet Start: 07-28-2024 End: 07-28-2024 Patient encounter procedure Leonarda Boykin MD Work Phone: [facility] Comment on above: Primary hypertension (Primary Dx); Raynaud's disease without gangrene Start: 07-28-2024 End: 07-28-2024 ambulatory LEONARDA BOYKIN Facility:[facility] Start: 07-15-2024 End: 07-15-2024 Telephone encounter Michael Flynn MD Work Phone: [facility] Comment on above: Results Start: 07-10-2024 End: 07-22-2024 Telephone encounter Michael Flynn MD Work Phone: Internal Medicine [place] Comment on above: Patient Question Start: 07-07-2024 End: 07-07-2024 ambulatory LEONARDA BOYKIN Facility:[facility] Start: 07-07-2024 End: 07-07-2024 [facility] LEONARDA BOYKIN Facility:[facility] Start: 07-07-2024 End: 07-07-2024 Patient encounter procedure Leonarda Boykin MD Work Phone: [facility] Comment on above: Raynaud disease with out gangrene (Primary Dx); Hypokalemia Start: 07-05-2024 End: 07-05-2024 ambulatory MICHAEL FLYNN Facility:[facility] Start: 07-05-2024 End: 07-05-2024 Office outpatient visit 25 minutes Tapan Merchant MD Work Phone: [facility] Comment on above: Chilblains, initial encounter (Primary Dx) Start: 06-25-2024 End: 06-25-2024 ambulatory MICHAEL FLYNN Facility:[facility] Start: 06-25-2024 End: 06-25-2024 Patient encounter procedure Starr Haines MD Work Phone: Ophthalmology Comment on above: Dry eye syndrome of bilateral lacrimal glands (Primary Dx); Meibomian gland dysfunction (MGD) of upper and lower lids of both eyes; Eye pain, left Start: 06-05-2024 End: 06-05-2024 ambulatory MICHAEL FLYNN Facility:[facility] Start: 06-05-2024 End: 06-05-2024 Office outpatient visit 25 minutes Carlotta Archer MD Work Phone: Neurology Comment on above: Chronic daily headac he (Primary Dx) Start: 04-23-2024 End: 04-28-2024 ambulatory Michael Flynn MD Work Phone: Internal Medicine [place] [id number] Start: 04-23-2024 End: 04-23-2024 Patient encounter procedure Starr Haines MD Work Phone: Ophthalmology Comment on above: Dry eye syndrome of bilateral lacrimal glands (Primary Dx); Meibomian gland dysfunction (MGD) of upper and lower lids of both eyes; Eye pain, left Start: 04-11-2024 End: 04-11-2024 ambulatory Pierre Valentina PT Work Phone: [facility] Comment on above: Pain in left wrist ( Primary Dx); Chronic left shoulder pain Start: 03-25-2024 End: 03-25-2024 ambulatory Pierre Valentina PT Work Phone: [facility] Comment on above: Pain in left wrist ( Primary Dx); Chronic left shoulder pain Start: 03-18-2024 End: 03-18-2024 ambulatory Pierre Valentina PT Work Phone: [facility] Comment on above: Pain in left wrist ( Primary Dx); Chronic left shoulder pain Start: 03-11-2024 End: 03-11-2024 ambulatory Pierre Valentina PT Work Phone: [facility] Comment on above: Pain in left wrist ( Primary Dx); Chronic left shoulder pain Start: 03-10-2024 End: 03-10-2024 ambulatory MICHAEL FLYNN Facility:[facility] Start: 03-05-2024 End: 03-05-2024 ambulatory MICHAEL FLYNN Facility:[facility] Start: 03-05-2024 End: 03-05-2024 Office outpatient visit 40 minutes Carlotta Archer MD Work Phone: Neurology Comment on above: Chronic daily headac he (Primary Dx); Neck pain Start: 03-03-2024 End: 03-28-2024 Telephone encounter Starr Haines MD Work Phone: [facility] [place] Comment on above: Insurance Authorizat ion (Xdemvy) Start: 02-27-2024 End: 02-27-2024 ambulatory MICHAEL FLYNN Facility:[facility] Start: 02-27-2024 End: 02-27-2024 Patient encounter procedure Starr Haines MD Work Phone: Ophthalmology Comment on above: Dry eye syndrome of bilateral lacrimal glands (Primary Dx); Meibomian gland dysfunction (MGD) of upper and lower lids of both eyes; Eye pain, left Start: 02-19-2024 End: 02-19-2024 ambulatory Pierre Montgomery PT Work Phone: [facility] Comment on above: Pain in left wrist ( Primary Dx); Chronic left shoulder pain Start: 02-18-2024 End: 02-18-2024 ambulatory RAJEEV HODGE Facility:[facility] Start: 02-18-2024 End: 02-18-2024 Patient encounter procedure Rajeev Hodge MD Work Phone: Pain Management Comment on above: Myofascial pain synd endy, cervical (Primary Dx); Spasm of cervical paraspinous muscle Start: 02-12-2024 End: 02-12-2024 ambulatory Pierre Montgomery PT Work Phone: [facility] Comment on above: Acute pain of right shoulder (Primary Dx) Start: 02-07-2024 Refill Michael Dyer Work Phone: [facility] [place] Comment on above: Refill Request Start: 01-29-2024 End: 01-29-2024 ambulatory Pierre Montgomery PT Work Phone: [facility] Comment on above: Acute pain of right shoulder (Primary Dx) Start: 01-22-2024 End: 01-22-2024 Office outpatient visit 25 minutes Michael Flynn MD Work Phone: [facility] [place] Comment on above: Cervicogenic headach e (Primary Dx); Left facial numbness Start: 01-14-2024 End: 01-15-2024 ambulatory MICHAEL FLYNN Facility:[facility] Start: 01-01-2024 Telephone encounter Michael Rodriguez rn, MD Work Phone: [facility] Start: 12-31-2023 End: 12-31-2023 ambulatory Pierre Montgomery PT Work Phone: [facility] Comment on above: Acute pain of right shoulder (Primary Dx) Start: 12-28-2023 End: 12-28-2023 ambulatory MICHAEL FLYNN Facility:[facility] Start: 12-28-2023 End: 12-28-2023 Office outpatient visit 25 minutes Michael Flynn MD Work Phone: [facility] [place] Comment on above: Left facial numbness (Primary [...] Hortencia Love DO Work Phone: Internal Medicine [place] [address] Comment on above: Facial paresthesia ( Primary Dx); New onset of headaches after age 50; Eye pain, left; Neuralgic facial pain; Severe episode of recurrent major depressive disorder, without psychotic features (HCC); Attention deficit hyperactivity disorder (ADHD), unspecified ADHD type; Primary hypertension Start: 12-13-2023 End: 12-13-2023 ambulatory Pierre Montgomery PT Work Phone: [facility] Comment on above: Acute pain of right shoulder (Primary Dx) Start: 12-03-2023 End: 12-03-2023 ambulatory Krista Boston PRODUCT MGMT DEV MANAGER Work Phone: [facility] Comment on above: Acute pain of right shoulder (Primary Dx) Start: 11-23-2023 End: 11-23-2023 Patient encounter procedure Isabel Menjivar MD Work Phone: Dermatology Comment on above: Skin exam, screening for cancer (Primary Dx); Lepe angioma; Lentigines; Multiple benign nevi; Seborrheic keratoses; Dysesthesia of scalp; Rash and nonspecific skin eruption; Actinic keratoses Start: 11-20-2023 End: 11-20-2023 ambulatory Awilda Darby PT Work Phone: [facility] Comment on above: Acute pain of right shoulder (Primary Dx); Impingement of right shoulder Start: 11-20-2023 End: 11-20-2023 Office outpatient new 30 minutes Juliane Denise PA-C Work Phone: [facility] Comment on above: Impingement of right shoulder (Primary Dx) Start: 11-13-2023 End: 11-13-2023 Patient encounter procedure Daniel Whatley APRN.CNP Work Phone: [facility] Comment on above: Skin lesion (Primary Dx) Start: 10-15-2023 End: 10-15-2023 Patient encounter procedure Nhung Saavedra APRN.POLE PEELER Work Phone: Internal [facility] Comment on above: Facial paresthesia ( Primary Dx); Benign essential HTN Start: 06-08-2023 End: 06-08-2023 Subsequent hospital visit by physician Javid [facility] Wanda Simental Work Phone: Radiology Comment on above: Weight loss [R63.4] Start: 06-06-2023 Telephone encounter Hortencia veliz DO Work Phone: Internal [facility] Comment on above: Patient Update Start: 05-22-2023 Telephone encounter Hortencia veliz DO Work Phone: [facility] Start: 05-21-2023 End: 05-21-2023 Office outpatient visit 25 minutes Hortencia Love DO Work Phone: Internal Medicine [facility] Comment on above: Acute cough (Primary Dx); Weight loss; Dry scalp Start: 05-08-2023 Telephone encounter Hortencia veliz DO Work Phone: [facility] Start: 05-07-2023 End: 05-07-2023 Office outpatient visit 25 minutes Hortencia Love DO Work Phone: [facility] Comment on above: Encounter for immuni zation (Primary Dx); Severe episode of recurrent major depressive disorder, without psychotic features (HCC); Unspecified essential hypertension; Therapeutic drug monitoring; Hyperkalemia Start: 04-16-2023 End: 04-16-2023 Nursing evaluation of patient and report Nurse Pod B Work Phone: [facility] Comment on above: Need for vaccination (Primary Dx) Start: 04-13-2023 Telephone encounter Atiya Holly MD Work Phone: [facility] Comment on above: Results Start: 03-07-2023 ambulatory Hortencia Hunteraniya payton DOMINGO Work Phone: [facility] Start: 01-08-2023 End: 01-08-2023 Patient encounter procedure Atiya Holly MD Work Phone: [facility] Comment on above: Elevated BP without diagnosis of hypertension (Primary Dx); Screening for colon cancer; Attention deficit hyperactivity disorder (ADHD), unspecified ADHD type Start: 10-24-2022 Telephone encounter Patti Ocasio December.POLE PEELER Work Phone: [facility] [place] Comment on above: Insurance Authorizat ion Start: 10-10-2022 Telephone encounter Patti Ocasio December.POLE PEELER Work Phone: Dermatology Comment on above: Results Start: 10-09-2022 End: 10-09-2022 Patient encounter procedure Patti Ocasio December.POLE PEELER Work Phone: Dermatology Comment on above: Multiple benign nevi (Primary Dx); Seborrheic keratosis; Neoplasm of unspecified behavior of bone, soft tissue, and skin; Lentigines; Angioma of skin Start: 06-20-2022 Telephone encounter Hortencia veliz DO Work Phone: [facility] Comment on above: Results Start: 06-13-2022 End: 06-13-2022 Office outpatient visit 25 minutes Hortencia Love DO Work Phone: [facility] Comment on above: Severe episode of re current major depressive disorder, without psychotic features (HCC) (Primary Dx); Skin lesion; Change of skin color; Screening cholesterol level Start: 04-11-2022 End: 04-11-2022 Nursing evaluation of patient and report Ky Nurse Work Phone: [facility] Comment on above: Need for vaccination (Primary Dx) Start: 04-05-2022 ambulatory Hortencia cain DO Work Phone: [facility] Start: 01-11-2022 End: 01-11-2022 Subsequent hospital visit by physician Javid [facility] Wanda Work Phone: Radiology Comment on above: Acute wrist pain, ri ght [M25.531] Start: 01-11-2022 End: 01-11-2022 Patient encounter procedure Tapan Merchant MD Work Phone: [facility] Comment on above: Acute wrist pain, ri ght (Primary Dx); Acute right ankle pain Start: 11-29-2021 End: 11-29-2021 Nursing evaluation of patient and report Ky Nurse Work Phone: [facility] Comment on above: Need for vaccination (Primary Dx) Start: 01-26-2021 End: 01-26-2021 Subsequent hospital visit by physician Javid [facility] Chicot Work Phone: Radiology Comment on above: Suspected [...] Phone: Start: 05-21-2023 Sars-cov-2 detection by dna/rna Hortencia Love DO Work Phone: Start: 04-16-2023 PFIZER-BIONTECH COVI D-19 VACCINE ( SEASON) AGE 12+ [...] DTaP/Tdap/Td Vaccines (3 - Td or Tdap) [facility] Start: 05-08-2033 Urine microalbumin profile DTaP,Tdap,Td Vaccine (3 - Td or Tdap) [facility] Start: 12-21-2030 Screening for malignant neoplasm of colon [facility] Start: 08-20-2027 Diabetes Screening Diabetes Screening [facility] Start: 07-07-2027 Diabetes Screening Diabetes Screening [facility] Start: 06-13-2027 Lipid 1996 panel - Serum or Plasma Lipid Screening [facility] Start: 11-29-2027 Lipid panel Lipid Screening [facility] Start: 06-13-2027 LIPID SCREEN LIPID SCREEN [facility] Start: 01-13-2027 Diabetes Screening Diabetes Screening [facility] Start: 06-08-2026 Diabetes Screening Diabetes Screening [facility] Start: 05-21-2026 Diabetes Screening Diabetes Screening [facility] Start: 05-08-2026 LIPID SCREEN LIPID SCREEN [facility] Start: 03-03-2026 HPV TESTING HPV TESTING [facility] Start: 03-03-2026 PAP TESTING PAP TESTING [facility] Start: 03-03-2026 Screening for malignant neoplasm of cervix [facility] Start: 02-04-2026 Annual PCP Team Chronic Disease Visit Annual PCP Team Chronic Disease Visit [facility] Start: 01-11-2026 COLOGUARD (FIT-DNA) COLOGUARD (FIT-DNA) [facility] Start: 01-11-2026 COLORECTAL CANCER SCREENING COLORECTAL CANCER SCREENING [facility] Start: 01-11-2026 Screening for malignant neoplasm of colon [facility] Start: 12-23-2025 Annual PCP Team Chronic Disease Visit Annual PCP Team Chronic Disease Visit [facility] Start: 12-23-2025 zzBP Controlled (<130/80) (Retired) zzBP Controlled (<130/80) (Retired) [facility] Start: 10-03-2025 Annual PCP Team Chronic Disease Visit Annual PCP Team Chronic Disease Visit [facility] Start: 10-03-2025 BP Controlled (<130/80) BP Controlled (<130/80) [facility] Start: 09-24-2025 BP Controlled (<130/80) BP Controlled (<130/80) [facility] Start: 09-09-2025 BP Controlled (<130/80) BP Controlled (<130/80) [facility] Start: 08-25-2025 Annual PCP Team Chronic Disease Visit Annual PCP Team Chronic Disease Visit [facility] Start: 08-08-2025 Annual PCP Team Chronic Disease Visit Annual PCP Team Chronic Disease Visit [facility] Start: 07-07-2025 Annual PCP Team Chronic Disease Visit Annual PCP Team Chronic Disease Visit [facility] Start: 07-07-2025 BP Controlled (<130/80) BP Controlled (<130/80) [facility] Start: 06-13-2025 DIABETES SCREEN DIABETES SCREEN [facility] Start: 06-13-2025 Diabetes Screening Diabetes Screening [facility] Start: 06-05-2025 BP Controlled (<130/80) BP Controlled (<130/80) [facility] Start: 05-07-2025 End: 05-07-2025 Patient encounter procedure 05/07/2025 3:00 PM EDT Office Visit [facility] [place] [facility] [address] [address] Leonarda Boykin MD [address] [place] [address] Return in about 3 months (around 05/07/2025) for fu hip and vertigo - schedule with me.. [facility] [place] Comment on above: Return in about 3 months (around ) for fu hip and vertigo - schedule with me.. Start: 04-14-2025 ambulatory Ambulatory Facility:[facility] Start: 04-07-2025 ambulatory Ambulatory Facility:[facility] Start: 03-16-2025 Influenza vaccination [facility] Start: 03-05-2025 BP Controlled (<130/80) BP Controlled (<130/80) [facility] Start: 02-04-2025 End: 02-04-2025 Patient encounter procedure 02/04/2025 9:00 AM EDT Office Visit [facility] [place] [facility] [address] [address] Leonarda Boykin MD [address] [place] [address] 6 week follow up-back and neck pain [facility] [place] Comment on above: 6 week follow up-back and neck pain Start: 01-21-2025 Annual PCP Team Chronic Disease Visit Annual PCP Team Chronic Disease Visit [facility] Start: 01-21-2025 BP Controlled (<130/80) BP Controlled (<130/80) [facility] Start: 01-05-2025 End: 01-05-2025 Patient encounter procedure 01/05/2025 2:00 PM EDT Office Visit [facility] [place] [facility] [address] [address] Leonarda Boykin MD [address] [place] [address] Return in about 3 months (around 01/03/2025) for fu low back an dneck jpain. [facility] [place] Comment on above: Return in about 3 months (around 01/04/20 25) for fu low back an dneck jpain. Start: 12-27-2024 Annual PCP Team Chronic Disease Visit Annual PCP Team Chronic Disease Visit [facility] Start: 12-27-2024 BP Controlled (<130/80) BP Controlled (<130/80) [facility] Start: 12-16-2024 Annual PCP Team Chronic Disease Visit Annual PCP Team Chronic Disease Visit [facility] Start: 12-16-2024 Anxiety Screening Anxiety Screening [facility] Start: 12-16-2024 BP Controlled (<130/80) BP Controlled (<130/80) [facility] Start: 12-10-2024 End: 12-10-2024 Patient encounter procedure 12/10/2024 11:00 AM EDT Office Visit Neurology [address] [address] Carlotta Archer MD [address] [place] [address] Return in about 3 months Neurology Comment on above: Return in about 3 months Start: 11-13-2024 Advance Directive Discussion Advance Directive Discussion [facility] Start: 11-13-2024 Screening for osteoporosis [facility] Start: 11-12-2024 BP Controlled (<130/80) BP Controlled (<130/80) [facility] Start: 10-14-2024 Annual PCP Team Chronic Disease Visit Annual PCP Team Chronic Disease Visit [facility] Start: 10-14-2024 BP Controlled (<130/80) BP Controlled (<130/80) [facility] Start: 10-14-2024 Medicare Annual Wellness Visit Medicare Annual Wellness Visit [facility] Start: 10-03-2024 End: 10-03-2024 Patient encounter procedure 10/03/2024 4:00 PM EDT Office Visit [facility] [place] [address] [address] Leonarda Boykin MD [address] [place] [address] 6w follow up appointment [facility] [place] Comment on above: 6w follow up appointment Start: 09-25-2024 End: 09-25-2024 Patient encounter procedure 09/25/2024 11:20 AM EDT Office Visit Internal Medicine [place] [address] [address] Michael Flynn MD [address] [place], [place] [id number] Physical [facility] [place] Comment on above: Physical Start: 09-24-2024 End: 09-24-2024 Patient encounter procedure 09/24/2024 9:00 AM EDT Office Visit Vascular Medicine [address] [place] [address] Donna Mcneil DO [address] [place] [address] Raynaud's disease without gangrene [I73.00] Vascular Medicine Comment on above: Raynaud's disease without gangrene [I73. 00] Start: 09-16-2024 End: 09-16-2024 Patient encounter procedure 09/16/2024 11:00 AM EST Office Visit Podiatry [address] [place] [address] Shi Montenegro [address] [address] [facility] Comment on above: COrn Start: 09-04-2024 End: 09-04-2024 Patient encounter procedure 09/04/2024 4:00 PM EST Office Visit Neurology [address] [address] Carlotta Archer MD [address] [place], [place] [id number] Return in about 3 months (around 09/05/2024). Neurology Comment on above: Return in about 3 months (around 09/05/19). Start: 08-25-2024 End: 11-24-2024 Erythrocyte sedimentation rate [facility] Comment on above: Expected: 08/25/2024, Expires: Start: 08-25-2024 End: 11-24-2024 Rheumatoid factor [Units/volume] in Serum or Plasma [facility] Comment on above: Expected: 08/25/2024, Expires: Start: 08-25-2024 End: 11-24-2024 SYPHILIS TREPONEMAL W/REFLEX [facility] Work Phone: Comment on above: Expected: 08/25/2024, Expires: Start: 08-25-2024 End: 11-24-2024 Thyroxine (T4) free [Mass/volume] in Serum or Plasma [facility] Comment on above: Expected: 08/25/2024, Expires: Start: 08-25-2024 End: 08-25-2024 Patient encounter procedure 08/25/2024 9:00 AM EST Office Visit Vascular Surgery [address] [place] [address] [facility] Surgery Comment on above: US Start: [...] procedure 07/28/2024 7:40 PM EST Office Visit [facility] [address] [place] [address] Leonarda Boykin MD [address] [place] [address] Medication review [facility] Comment on above: Medication review Start: 07-15-2024 End: 07-15-2024 Patient encounter procedure 07/15/2024 3:00 PM EST Office Visit Internal Medicine [place] [address] [address] Michael Flynn MD [address] [place] [address] wellness [facility] [place] Comment on above: wellness Start: 07-07-2024 End: 10-06-2024 ANTI NEUTRO CYTO AB [facility] Comment on above: Expected: 07/07/2024, Expires: Start: 07-07-2024 End: 10-06-2024 C reactive protein [Mass/volume] in Serum or Plasma [facility] Work Phone: Comment on above: Expected: 07/07/2024, Expires: Start: 07-07-2024 End: 07-07-2024 Patient encounter procedure 07/07/2024 10:40 AM EST Office Visit [facility] [place] [address] [address] Leonarda Boykin MD [address] [place], [place] [id number] f/up from express care [facility] Comment on above: f/up from express care Start: 06-25-2024 End: 06-25-2024 Patient encounter procedure 06/25/2024 9:30 AM EST Office Visit [facility] [address] [place] [address] Starr Haines MD [address] [place] [address] 2 MTH F/U Ophthalmology Comment on above: 2 MTH F/U Start: 06-05-2024 End: 06-05-2024 Patient encounter procedure 06/05/2024 10:00 AM EST Office Visit Neurology [address] [address] Carlotta Archer MD [address] [place] [address] 3 month follow up Neurology Comment on above: 3 month follow up Start: 05-08-2024 DIABETES SCREEN DIABETES SCREEN [facility] Start: 05-07-2024 Shingrix Vaccine (1 of 2) Shingrix Vaccine (1 of 2) [facility] Comment on above: Postponed from 11/13/2009 (Declined at t his time) Start: 04-23-2024 End: 04-23-2024 Patient encounter procedure 04/23/2024 1:45 PM EDT Office Visit [facility] [address] [place] [address] Starr Haines MD [address] [place] [address] 2 mo follow up Ophthalmology Comment on above: 2 mo follow up Start: 04-11-2024 End: 04-11-2024 ambulatory 04/11/2024 2:15 PM EDT OT/PT/Speech Visit [facility] [address] [place] [address] Pierre Montgomery, PT [address] [place], [place] [id number] Neck Pain [facility] Comment on above: Neck Pain Start: 04-01-2024 End: 04-01-2024 ambulatory 04/01/2024 3:00 PM EDT OT/PT/Speech Visit [facility] [address] [place] [address] Pierre Montgomery, PT [address] [place], [place] [id number] Pain in left wrist [M25.532] [facility] Comment on above: Pain in left wrist [M25.532] Start: 03-25-2024 End: 03-25-2024 ambulatory 03/25/2024 3:00 PM EDT OT/PT/Speech Visit [facility] [address] [place] [address] Pierre Montgomery, PT [address] [place] [address] Pain in left wrist [M25.532] [facility] Comment on above: Pain in left wrist [M25.532] Start: 03-18-2024 End: 03-18-2024 ambulatory 03/18/2024 3:00 PM EDT OT/PT/Speech Visit [facility] [address] [place] [address] Pierre Montgomery, PT [address] [place] [id number] Pain in left wrist [M25.532] [facility] Comment on above: Pain in left wrist [M25.532] Start: 03-16-2024 COVID-19 Vaccine ( season) COVID-19 Vaccine () [facility] Start: 03-16-2024 Covid-19 Vaccine ( season) Covid-19 Vaccine ( season) [facility] Start: 03-16-2024 Influenza vaccination [facility] Start: 03-11-2024 End: 03-11-2024 ambulatory 03/11/2024 3:45 PM EDT OT/PT/Speech Visit [facility] [address] [place] [address] Pierre Montgomery, PT [address] [place] [address] Pain in left wrist [M25.532] [facility] Comment on above: Pain in left wrist [M25.532] Start: 03-05-2024 End: 06-04-2024 Methylmalonate [Moles/volume] in Serum or Plasma METHYLMALONIC ACID Lab Routine Chronic daily headache Expected: 03/05/2024, Expires: 06/04/2024 [facility] Work Phone: Comment on above: Expected: 03/05/2024, Expires: Start: 03-05-2024 End: 03-05-2024 Patient encounter procedure 03/05/2024 8:00 AM EDT Office Visit Neurology [address] [address] Carlotta Archer MD [address] [place] [address] HEADACHES Neurology Comment on above: HEADACHES Start: 02-27-2024 End: 02-27-2024 Patient encounter procedure 02/27/2024 7:45 AM EDT Office Visit [facility] [address] [facility] [address] Starr Haines MD [address] [facility] [place] [address] Dry Eyes Ophthalmology Comment on above: Dry Eyes Start: 02-19-2024 End: 02-19-2024 ambulatory 02/19/2024 9:30 AM EDT OT/PT/Speech Visit [facility] [address] [place] [address] Pierre Montgomery, PT [address] [place] [address] M25.811 (ICD-10-CM) - Impingement of right shoulder [facility] Comment on above: M25.811 (ICD-10-CM) - Impingement of rig ht shoulder Start: 02-18-2024 End: 02-18-2024 Patient encounter procedure 02/18/2024 11:30 AM EDT Office Visit Pain Management [address] [address] Rajeev Hodge MD [address] [facility] [id number] [place] [address] cervical canal stenosis Pain Management Comment on above: cervical canal stenosis Start: 02-12-2024 End: 02-12-2024 ambulatory 02/12/2024 8:30 AM EDT OT/PT/Speech Visit [facility] [address] [place] [address] Pierre Montgomery, PT [address] [facility] [place] [address] Shoulder Pain, Neck pain [facility] Comment on above: Shoulder Pain, Neck pain Start: 02-01-2024 End: 02-01-2024 Patient encounter procedure 02/01/2024 10:40 AM EDT Appointment Radiology [address] [place] [address] Facial paresthesia [R20.2]; New onset of headaches after age 50 [R51.9]; Eye pain, left [H57.12]; Neuralgic facial pain [G51.8] Radiology Comment on above: Facial paresthesia [R20.2]; New onset of headaches after age 50 [R51.9]; Eye pain, left [H57.12]; Neuralgic facial pain [G51.8] Start: 01-29-2024 End: 01-29-2024 ambulatory 01/29/2024 8:30 AM EDT OT/PT/Speech Visit [facility] [facility] [address] [place] [address] Pierre Montgomery, PT [address] [place], [place] [address] M25.811 (ICD-10-CM) - Impingement of right shoulder [facility] Comment on above: M25.811 (ICD-10-CM) - Impingement of rig ht shoulder Start: 01-15-2024 End: 01-15-2024 ambulatory 01/15/2024 9:30 AM EDT OT/PT/Speech Visit [facility] [address] [place] [address] Pierre Montgomery, PT [address] [facility] [place] [place] [address] M25.811 (ICD-10-CM) - Impingement of right shoulder [facility] Comment on above: M25.811 (ICD-10-CM) - Impingement of rig ht shoulder Start: 01-13-2024 [facility] on above: Postponed from 03/16/2023 (Declined at t his time) Start: 12-31-2023 End: 12-31-2023 ambulatory 12/31/2023 8:30 AM EDT OT/PT/Speech Visit [facility] [address] [place] [address] Pierre Montgomery, PT [address] [place] [address] M25.811 (ICD-10-CM) - Impingement of right shoulder [facility] Comment on above: M25.811 (ICD-10-CM) - Impingement of rig ht shoulder Start: 12-28-2023 End: 03-28-2024 HEAVY METALS SCRN BL [facility] Work Phone: Comment on above: Expected: 12/28/2023, Expires: Start: 12-28-2023 End: 12-28-2023 Patient encounter procedure 12/28/2023 11:20 AM EDT Office Visit [facility] [place] [address] [address] Michael Flynn MD [address] [place] [address] est care [facility] [place] Comment on above: est care Start: 12-28-2023 End: 12-28-2023 Patient encounter procedure 12/28/2023 9:15 AM EDT Office Visit Otolaryngology [address] [address] Shi Henderson MD [address] [address] Facial paresthesia [R20.2] Otol[facility]ology Comment on above: Facial paresthesia [R20.2] Start: 12-20-2023 End: 12-20-2023 ambulatory 12/20/2023 8:00 AM EDT OT/PT/Speech Visit [facility] [address] [place] [address] Krista Boston, PRODUCT MGMT DEV MANAGER [address] [place] [address] M25.811 (ICD-10-CM) - Impingement of right shoulder [facility] Comment on above: M25.811 (ICD-10-CM) - Impingement of rig ht shoulder Start: 12-17-2023 End: 12-17-2023 Patient encounter procedure [facility] [place] Comment on above: Follow up Start: 12-13-2023 End: 12-13-2023 ambulatory 12/13/2023 2:00 PM EDT OT/PT/Speech Visit [facility] [address] [place] [address] Pierre Montgomery, PT [address] [place] [address] M25.811 (ICD-10-CM) - Impingement of right shoulder [facility] Comment on above: M25.811 (ICD-10-CM) - Impingement of rig ht shoulder Start: 11-23-2023 End: 11-23-2023 Patient encounter procedure 11/23/2023 8:20 AM EDT Office Visit Dermatology [address] [address] Isabel Menjivar MD [address] [place] [address] 2 spots on ankle Dermatology Comment on above: 2 spots on ankle Start: 11-16-2023 End: 11-16-2023 Patient encounter procedure 11/16/2023 10:00 AM EDT Office Visit Dermatology [address] [place] [address] Chaitanya Lewis PA-C [address] [place] [address] spot on ankle - order in review Dermatology Comment on above: spot on ankle - order in review Start: 06-13-2023 End: 06-06-2024 SHELBIE BY IFA WITH REFLEX SHELBIE BY IFA WITH REFLEX Lab Routine CRP elevated Weight loss Expected: 06/13/2023, Expires: 06/06/2024 [facility] Work Phone: Comment on above: Expected: 06/13/2023, Expires: Start: 06-13-2023 End: 06-06-2024 C reactive protein [Mass/volume] in Serum or Plasma C-REACTIVE PROTEIN (CRP) Lab Routine CRP elevated Weight loss Expected: 06/13/2023, Expires: 06/06/2024 [facility] Work Phone: Comment on above: Expected: 06/13/2023, Expires: Start: 06-13-2023 End: 06-06-2024 CBC W Auto Differential panel - Blood CBC + DIFF Lab Routine CRP elevated Weight loss Expected: 06/13/2023, Expires: 06/06/2024 [facility] Work Phone: Comment on above: Expected: 06/13/2023, Expires: Start: 06-13-2023 End: 06-06-2024 Comprehensive metabolic 2000 panel - Serum or Plasma COMP METABOLIC PANEL Lab Routine CRP elevated Weight loss Expected: 06/13/2023, Expires: 06/06/2024 [facility] Work Phone: Comment on above: Expected: 06/13/2023, Expires: Start: 06-13-2023 End: 06-06-2024 Cyclic citrullinated peptide IgG Ab [Units/volume] in Serum or Plasma CCP ANTIBODY IGG Lab Routine CRP elevated Weight loss Expected: 06/13/2023, Expires: 06/06/2024 [facility] Work Phone: Comment on above: Expected: 06/13/2023, Expires: Start: 06-13-2023 End: 06-06-2024 Erythrocyte sedimentation rate SED RATE WESTERGREN Lab Routine CRP elevated Weight loss Expected: 06/13/2023, Expires: 06/06/2024 [facility] Work Phone: Comment on above: Expected: 06/13/2023, Expires: Start: 06-13-2023 End: 06-06-2024 Rheumatoid factor [Units/volume] in Serum or Plasma RHEUMATOID FACTOR BL Lab Routine CRP elevated Weight loss Expected: 06/13/2023, Expires: 06/06/2024 [facility] Work Phone: Comment on above: Expected: 06/13/2023, Expires: Start: 06-06-2023 End: 09-05-2023 25-hydroxyvitamin D3 [Mass/volume] in Serum or Plasma VITAMIN D 25 HYDROXY Lab Routine CRP elevated Weight loss Vitamin D deficiency Expected: 06/06/2023, Expires: 09/05/2023 [facility] Work Phone: Comment on above: Expected: 06/06/2023, Expires: Start: 05-15-2023 End: 08-14-2023 Renal function 2000 panel - Serum or Plasma RENAL FUNCTION PANEL Lab Routine Hyperkalemia Therapeutic drug monitoring Unspecified essential hypertension Expected: 05/15/2023 (Approximate), Expires: 08/14/2023 [facility] Work Phone: Comment on above: Expected: 05/15/2023 (Approximate), Expi res: 08/14/2023 Start: 04-30-2023 Urine microalbumin profile [facility] Start: 03-16-2023 Influenza vaccination [facility] Start: 01-12-2023 Influenza vaccination INFLUENZA (#1) [facility] Comment on above: Postponed from 03/16/2022 (Declined at t his time) Start: 03-16-2022 Influenza vaccination [facility] Start: 03-03-2022 Mammography [facility] Start: 03-03-2022 Screening for malignant neoplasm of breast Mammogram Screening [facility] Start: 02-04-2022 COLORECTAL CANCER SCREENING COLORECTAL CANCER SCREENING [facility] Start: 02-04-2022 FECAL OCCULT BLOOD FECAL OCCULT BLOOD [facility] Start: 02-04-2022 Screening for malignant neoplasm of colon Fecal Occult Blood [facility] Start: 01-24-2022 COVID-19 VACCINE (5 - Booster for Pfizer series) COVID-19 VACCINE (5 - Booster for Pfizer series) [facility] Start: 12-21-2021 Colonoscopy COLONOSCOPY [facility] Start: 12-21-2021 Screening for malignant neoplasm of colon Colonoscopy [facility] Start: 2019 RSV Vaccine (1 - 1-dose 60+ series) RSV Vaccine (1 - 1-dose 60+ series) [facility] Start: 03-05-2018 Pneumococcal vaccination Pneumococcal Vaccine (2 of 2 - PCV) [facility] Start: 03-05-2018 Pneumococcal Vaccine: 50+ (2 of 2 - PCV) Pneumococcal Vaccine: 50+ (2 of 2 - PCV) [facility] Start: 11-13-2009 SHINGRIX VACCINE (1 of 2) SHINGRIX VACCINE (1 of 2) [facility] Start: 11-13-2009 Zoster Vaccines (1 of 2) Zoster Vaccines (1 of 2) [facility] Start: 11-13-2004 COLOGUARD (FIT-DNA) COLOGUARD (FIT-DNA) [facility] Start: 11-13-[address] COLONOGRAPHY [facility] Start: 11-13-2004 Screening for malignant neoplasm of colon [facility] Start: 11-13-2004 SIGMOIDOSCOPY SIGMOIDOSCOPY [facility] Start: 11-13-1980 Screening for malignant neoplasm of cervix [facility] Start: 11-13-1977 Anxiety Screening Anxiety Screening [facility] Start: 11-13-1977 BP Controlled (<130/80) BP Controlled (<130/80) [facility] Start: 11-13-1960 MMR Vaccines (1 of 1 - Standard series) MMR Vaccines (1 of 1 - Standard series) [facility] Start: 1959 Lipid panel Lipid Panel [facility] Start: 1960 Screening for malignant neoplasm of colon [facility] COLOGUARD COLOGUARD Lab Ro utine Screening for colon cancer Ordered: 01/08/2023 [facility] Work Phone: Comment on above: Ordered: 01/08/2023 End: 05-23-2025 DBT Breast - bilateral screening LACHELLE SCREENING W [facility] Radiology Routine Encounter for screening mammogram for breast cancer 1 Occurrences starting 04/23/2024 until 05/23/2025 [facility] Work Phone: Comment on above: 1 Occurrences starting 04/23/2024 until 05/23/2025 End: 04-05-2024 LACHELLE SCREENING LACHELLE SCREENING Radiology Routine Encounter for screening mammogram for breast cancer 1 Occurrences starting 03/07/2023 until 04/05/2024 [facility] Work Phone: Comment on above: 1 Occurrences starting 03/07/2023 until 04/05/2024 End: 06-19-2024 LACHELLE SCREENING LACHELLE SCREENING Radiology Routine Weight loss 1 Occurrences starting 05/21/2023 until 06/19/2024 [facility] Work Phone: Comment on above: 1 Occurrences starting 05/21/2023 until 06/19/2024 End: 01-15-2025 MR Brain WO and W contrast IV MRI BRAIN WO/W IVCON Radiology Routine Facial paresthesia New onset of headaches after age 50 Eye pain, left Neuralgic facial pain 1 Occurrences starting 12/17/2023 until 01/15/2025 [facility] Work Phone: Comment on above: 1 Occurrences starting 12/17/2023 until 01/15/2025 End: 06-25-2024 Radiologic exam chest 2 views XR CHEST 2V FRONTAL/LAT Radiology Routine Weight loss Acute cough 1 Occurrences starting 05/27/2023 until 06/25/2024 [facility] Work Phone: Comment on above: 1 Occurrences starting 05/27/2023 until 06/25/2024 End: 05-05-2023 Screening mammography bi 2-view breast inc cad LACHELLE SCREENING Radiology Routine Encounter for screening mammogram for breast cancer 1 Occurrences starting 04/05/2022 until 05/05/2023 [facility] Work Phone: Comment on above: 1 Occurrences starting 04/05/2022 until 05/05/2023 SURGICAL PATHOLOGY SURGICAL PATH OLOGY Lab Routine Neoplasm of unspecified behavior of bone, soft tissue, and skin 10/09/2022 2:43 PM EDT [facility] Work Phone: End: 08-08-2025 US.doppler Extremity arteries - bilateral for physiologic artery study PVR ANK PRESS [facility] Vascular Lab Routine Pain in both feet 1 Occurrences starting 08/08/2024 until 08/08/2025 [facility] Work Phone: Comment on above: 1 Occurrences starting 08/08/2024 until 08/08/2025 XR Pelvis and Hip - right AP and Lateral frog XR HIP GENERAL 3V PELV/AP/LAT RIGHT Radiology Routine Right hip pain 02/04/2025 12:23 PM EDT [facility] Work Phone: End: 03-06-2026 XR Pelvis and Hip - right AP and Lateral frog XR HIP GENERAL 3V PELV/AP/LAT RIGHT Radiology Routine Right hip pain 1 Occurrences starting 02/04/2025 until 03/06/2026 [facility] Work Phone: Comment on above: 1 Occurrences starting 02/04/2025 until 03/06/2026 [facility] Immunizations Immunization Date Immunization Notes Care Provider Joseline randle 05-08-2023 respiratory syncytia l virus (RSV) vaccine, bivalent (ABRYSVO) Hortencia Love DO Work Phone: [facility] 05-08-2023 tetanus toxoid, redu beth diphtheria toxoid, and acellular pertussis vaccine, adsorbed Hortencia Love DO Work Phone: [facility] 05-07-2023 diphtheria, tetanus toxoids and acellular pertussis vaccine, unspecified formulation Hortencia Love DO Work Phone: [facility] Work Phone: Comment on above: Inject 0.5 mL intram uscularly one time only for 1 dose. 05-07-2023 respiratory syncytia l virus RSV vaccine, PF, (ABRYSVO) 120 mcg/0.5 mL injection Hortencia Love DO Work Phone: [facility] Work Phone: Comment on above: Inject 0.5 mL intram uscularly one time only for 1 dose. 04-16-2023 COVID-19 vaccine, ag e 12+ yr, season (PFIZER-BIONTECH) Nurse B Work Phone: [facility] 04-11-2022 COVID-19 booster vac cine, age 12+ yr, bivalent (PFIZER-BIONTECH) [place] Nurse Work Phone: [facility] Work Phone: 11-29-2021 COVID-19 vaccine, ag e 12+ yr (PFIZER-BIONTECH - TREVIÑO TOP) Ky Nurse Work Phone: [facility] Work Phone: 10-06-2020 COVID-19 vaccine, ag e 12+ yr (PFIZER-BIONTECH - PURPLE TOP) Mi Nurse Work Phone: [facility] 09-15-2020 COVID-19 vaccine, ag e 12+ yr (PFIZER-BIONTECH - PURPLE TOP) Mi Nurse Work Phone: [facility] 03-05-2017 pneumococcal polysaccharide vaccine, 23 valent Ky Nurse Work Phone: [facility] 04-30-2013 tetanus toxoid, redu beth diphtheria toxoid, and acellular pertussis vaccine, adsorbed [place] Nurse Work Phone: [facility] Payers Date Payer Category Payer Medicare [id number] 2024 Medicare [id number] 2024 Self-pay 2024 Private Health Insurance AULTCAR E [id number] 2024 Unknown AULTCARE AUL[employer] E [employer] [id number] 2024-Present [phone] [address] [place] [address] PPO [id number] 2024 Unknown [id number] 2022 Medicaid [id number] 2021 Medicaid [facility] MEDICAID [facility] MEDICAID [id number] 2021-Present [phone] [address] [place] [address] Medicaid [id number] 2014 Medicaid [id number] 1959 Unknown [id number] [id number]. 1243 Unknown [id number] 2.16.840.1.825341.3.579.2. 462 Unknown [id number] 2.16.840.1.504886.3.579.2. 462 Unknown [id number] 2.16.840.1.601101.3.579.2. 462 Unknown [id number] 2.16.840.1.615197.3.579.2. 462 Unknown [id number] 2.16.840.1.185953.3.579.2. 462 Unknown [id number] 2.16.840.1.073078.3.579.2. 462 Unknown [id number] 2.16.840.1.439483.3.579.2. 462 Unknown [id number] 2.16.840.1.937890.3.579.2. 462 Unknown [id number] 2.16.840.1.238496.3.579.2. 462 Unknown [id number] 2.16.840.1.561917.3.579.2. 462 Unknown [id number] 2.16.840.1.742239.3.579.2. 462 Unknown [id number] 2.16.840.1.260225.3.579.2. 462 Unknown [id number] 2.16.840.1.491994.3.579.2. 462 Unknown [id number] 2.16.840.1.241863.3.579.2. 462 Unknown [id number] 2.16.840.1.766312.3.579.2. 462 Unknown [id number] 2.16.840.1.901645.3.579.2. 462 Unknown [id number] 2.16.840.1.153582.3.579.2. 462 Unknown [id number] 2.16.840.1.698146.3.579.2. 462 Unknown [id number] 2.16.840.1.466535.3.579.2. 462 Unknown [id number] 2.16.840.1.817660.3.579.2. 462 Social History Date Type Detail Facility Start: 12-21-2020 End: 03-05-2024 Tobacco smoking status NHIS Ex-smoker [facility] History of tobacco use Cigarette Smoker [facility] Start: 12-21-2020 End: 07-29-2022 Cigarettes smoked current (pack per day) - Reported 0.5 [facility] Work Phone: Start: 12-21-2020 End: 03-05-2024 Tobacco use and exposure Smokeless tobacco non-user [facility] Start: 05-12-2021 End: 02-04-2025 Alcohol intake Current non-drinker of alcohol (finding) [facility] Start: 1960 Sex Assigned At Not on file [facility] Start: 12-27-2020 End: 06-13-2022 Exposure to SARS-CoV-2 (event) Not sure [facility] Work Phone: History of tobacco use Current smoker [facility] Start: 04-29-2021 End: 07-29-2022 Alcohol Use Disorder Identification Test - Consumption [AUDIT-C] [facility] Work Phone: Start: 03-05-2025 How often to you have a drink containing alcohol? Patient refused [facility] Work Phone: (I/We) worried wheth er (my/our) food would run out before (I/we) got money to buy more. DK or Refused [facility] Work Phone: Has the [employer], [employer], or water [employer] threatened to shut off services in your home in past 12Mo No [facility] (I/We) worried wheth er (my/our) food would run out before (I/we) got money to buy more. Never true [facility] Tobacco smoking stat [facility] Tobacco smoking consumption unknown [facility] Work Phone: Goals Date Patient Goal Desired Activity /State Personal health goal Functional Status Date Assessment Result Facility 03-05-2025 [place] - suicide severity rating scale screener - recent [C-SSRS] [facility] Work Phone: 01-15-2024 Are you deaf, or do you have serious difficulty hearing No 01/15/2024 10:24 AM Evelia Valle LPN No [facility] 01-15-2024 Are you blind, or do you have serious difficulty seeing, even when wearing glasses No 01/15/2024 10:24 AM Evelia Valle LPN No [facility] 01-15-2024 Do you have serious difficulty walking or climbing stairs No 01/15/2024 10:24 AM Evelia Valle LPN No [facility] 01-15-2024 Do you have difficul ty dressing or bathing No 01/15/2024 10:24 AM Evelia Valle LPN No [facility] 01-15-2024 Because of a physica l, mental, or emotional condition, do you have difficulty doing errands alone such as visiting a physician's office or shopping No 01/15/2024 10:24 AM Evelia Valle LPN No [facility] Mental Status Date Assessment Result Facility 01-15-2024 Because of a physica l, mental, or emotional condition, do you have serious difficulty concentrating, remembering, or making decisions No 01/15/2024 10:24 AM EDT Evelia Suarez LPN No [facility] Clinical Notes 08-21-2016 to 02-09-2025 Telephone Encounter [...] refill of Hyzaar. Prescription was transferred to [facility] in [place]. She has enough medication to last until March 19, but will need refill sent to continue. [facility] 02-09-2025 Miscellaneous Notes Patient advised of provider's message and verbalized understanding. Patient also requests refill of Hyzaar. Prescription was transferred to [facility] in [place]. She has enough medication to last until March 19, but will need refill sent to continue. LM for patient to call the office for results. La Nena Mack LPN ----- Message from Leonarda Boykin MD sent at 02/09/2025 4:47 PM EDT ----- Xray is normal of the right hip. No significant arthritis. documented in this encounter [facility] 02-09-2025 Telephone encounter Note LM for patient to call the office for results. La Nena Mack LPN [facility] 02-09-2025 Telephone encounter Note ----- Message from Leonarda Boykin MD sent at 02/09/2025 4:47 PM EDT ----- Xray is normal of the right hip. No significant arthritis. [facility] 02-04-2025 History of Presen t illness [...] PATIENT PRESENTS WITH AN IMPLANTABLE OR ATTACHED PHOTO BOOTH OPERATOR: Yes [facility] RADIOLOGY DEPARTMENT: General X-ray: Exam(s) Completed: Pelvis X-Ray: Pelvis with Hip Right PERIPHERAL IV DATA: Not applicable SIGNED BY: RT Wisam(Clem) February 04, 2025 3:46 PM documented in this encounter [facility] 02-04-2025 Note HNO ID: [id number] Author: RADHA ORTIZ RT(R) Service: ? Author [...] PATIENT PRESENTS WITH AN IMPLANTABLE OR ATTACHED PHOTO BOOTH OPERATOR: Yes [facility] RADIOLOGY DEPARTMENT: General X-ray: Exam(s) Completed: Pelvis X-Ray: Pelvis with Hip Right PERIPHERAL IV DATA: Not applicable SIGNED BY: Radha Ortiz RT(R) February 04, 2025 3:46 PM [facility] 02-04-2025 Instructions Leonarda Boykin MD - 02/04/2025 9:18 AM EDT Images from the original note were not included. Gluteus medius exercises. At [facility], your health is our top priority -- [...] Khushi Dawkins, who is a highly-trained physician facilities assistant. She is certified and licensed to provide preventative and acute care, including diagnosing illness, prescribing medication and managing your treatment. As a team, Dr. Boykin and Khushi will be working together to ensure that all of your health care needs are met, including improved appointment availability. To schedule an appointment with your care team, please call [phone]. Thank you for the privilege of participating in your care. Sincerely, Leonarda Boykin MD & Khushi Dawkins PA-C documented in this encounter [facility] 02-04-2025 Note HNO ID: [id number] Author: LEONARDA BOYKIN MD Service: ? Author Type: Physician Type: Progress Notes Filed: 02/04/2025 09:41 Note Text: 02/04/2025 Recording using Poxel software for draft documentation of the visit was discussed with the patient/authorized sales and merchandising representative; all questions welcomed and answered. Patient/authorized sales and merchandising representative agreed to proceed HPI: Giovanna Nation [...] Sister suicide Ischemic Heart Disease Brother 60 [place], heavy smoker, Etoh Psychiatry Son Opoid dependency [...] worsening vertigo; instru (more content not included)... [facility] 02-04-2025 History of Presen t illness Narrative 02/04/2025 Recording using Poxel software for draft documentation of the visit was discussed with the patient/authorized sales and merchandising representative; all questions welcomed and answered. Patient/authorized sales and merchandising representative agreed to proceed HPI: Giovanna Nation [...] Sister suicide Ischemic Heart Disease Brother 60 NC, heavy smoker, Etoh Psychiatry Son Opoid dependency [...] Leonarda Boykin MD documented in this encounter [facility] 12-30-2024 Telephone encounter Note Spoke with Diana, we just need the last office notes. She did fax that over to us. La Nena Mack LPN [facility] 12-30-2024 Miscellaneous Notes Spoke with Diana, we just need the last office notes. She did fax that over to us. La Nena Mack LPN Diana with [facility] is calling Leonarda Boykin MD today to note they received a cover page with a name and MRN requesting reports and the information in not clear on what is exactly needed. Please call to discuss what is needed for this patient from this facility Call back Diana/ Market Research Analyst. [phone] Person calling: Diana Call patient at: on cell [phone] (home) [phone] (cell) Was an appointment scheduled: No Closing statement: Results or non-symptom based questions: Thank you for calling [facility], your call will be returned within the next business day. Vivian Slade documented in this encounter [facility] 12-29-2024 Telephone encounter Note Diana with [facility] is calling Leonarda Boykin MD today to note they received a cover page with a name and MRN requesting reports and the information in not clear on what is exactly needed. Please call to discuss what is needed for this patient from this facility Call back Diana/ Market Research Analyst. [phone] Person calling: Diana Call patient at: on cell [phone] (home) [phone] (cell) Was an appointment scheduled: No Closing statement: Results or non-symptom based questions: Thank you for calling [facility], your call will be returned within the next business day. Vivian Slade [facility] 12-23-2024 Instructions Leonarda Boykin MD - 12/23/2024 [...] your gastroenterology referral for a colonoscopy at [facility]. - Plan to return in about six weeks to review your hip pain and nerve symptom progress. - Contact the office sooner if your hip pain or nerve symptoms worsen, if you develop new concerns, or if you have any side effects. documented in this encounter [facility] 12-23-2024 Note HNO ID: [id number] Author: LEONARDA BOYKIN MD Service: ? Author Type: Physician Type: Progress Notes Filed: 12/23/2024 13:20 Note Text: 12/23/2024 Recording using Poxel software for draft documentation of the visit was discussed with the patient/authorized sales and merchandising representative; all questions welcomed and answered. Patient/authorized sales and merchandising representative agreed to proceed HPI: Giovanna Nation is a 64-year-old female with a history of degenerative disc disease, presenting for evaluation of left hip pain and ongoing neurological symptoms. Left Hip Pain: - Onset approximately two weeks ago, following vigorous exercise [place] [facility] - Pain began two days post-exercise, initially [...] with some discomfort. - ER visit at [facility] on ; X-rays showed no fractures, minimal arthritis. - Follow-up with Dr. Juliano Alatorre, orthopedic designer, who prescribed Meloxicam 7.5 mg BID for [...] of the neck reviewed by Dr. Ríos, data review specialist, who did not recommend surgery but referred to pain management. - Seen by Dr. Castillo, ornamental painter, who suggested a steroid injection; Giovanna hesitant [...] Sister suicide Ischemic Heart Disease Brother 60 [place], heavy smoker, Etoh Psychiatry Son Opoid dependency [...] oriented. SKIN: Unrema (more content not included)... [facility] 12-23-2024 History of Presen t illness Narrative 12/23/2024 Recording using Poxel software for draft documentation of the visit was discussed with the patient/authorized sales and merchandising representative; all questions welcomed and answered. Patient/authorized sales and merchandising representative agreed to proceed HPI: Giovanna Nation is a 64-year-old female with a history of degenerative disc disease, presenting for evaluation of left hip pain and ongoing neurological symptoms. Left Hip Pain: - Onset approximately two weeks ago, following vigorous exercise on a machine with a [place] [facility] - Pain began two days post-exercise, initially [...] with some discomfort. - ER visit at [facility] on ; X-rays showed no fractures, minimal arthritis. - Follow-up with Dr. Juliaon Alatorre, orthopedic designer, who prescribed Meloxicam 7.5 mg BID for [...] of the neck reviewed by Dr. Ríos, data review specialist, who did not recommend surgery but referred to pain management. - Seen by Dr. Castillo, ornamental painter, who suggested a steroid injection; Giovanna hesitant [...] Sister suicide Ischemic Heart Disease Brother 60 [place], heavy smoker, Etoh Psychiatry Son Opoid dependency [...] [place] [facility] [place] [facility]; pain described as deep in the joint, [...] Leonarda Boykin MD documented in this encounter [facility] 11-18-2024 Telephone encounter Note Order is faxed, patient is informed. [facility] 11-18-2024 Miscellaneous Notes Order is faxed, patient [...] schedule with the GI near her in [place] Agreeable to PCP OV if recommended Patient [...] been faxed, she can be reached at [phone] Patient is calling to request a referral to a Gastro provider, and asked if the referral once placed can be faxed to his office. To: Dr. Davidson Mack Phone number - [phone] Fax number - [phone] documented in this encounter [facility] 11-18-2024 Telephone encounter Note Referral placed but should be seen sooner if not seeing GI for awhile. Khushi Dawkins PA-C Covering for Dr. Boykin [facility] 11-18-2024 Telephone encounter Note Called and spoke [...] schedule with the GI near her in [place] Agreeable to PCP OV if recommended [facility] 11-18-2024 Telephone encounter Note Patient calling back to explain she suffer from constipation and unable to completely empty her bowel and has black stool Transferred to nurse triage [facility] 11-18-2024 Telephone encounter Note LM for patient to call the office to let us know why she is needs the referral. La Nena Mack LPN [facility] 11-18-2024 Telephone encounter Note No problem but need to know what the referral is for? Why does she need to see a gastro doc? [facility] 11-17-2024 Telephone encounter Note Please advise patient when this order has been faxed, she can be reached at [phone] [facility] 11-17-2024 Telephone encounter Note Patient is calling to request a referral to a Gastro provider, and asked if the referral once placed can be faxed to his office. To: Dr. Davidson Mack Phone number - [phone] Fax number - [phone] [facility] 10-03-2024 Note HNO ID: [id number] Author: LEONARDA BOYKIN MD Service: ? Author [...] sees psychiatrist [facility] in [place] - she wanted to stop strattera and [...] developmental c spine stenosis Doing PT at [facility] for her low back - seems to [...] Sister suicide Ischemic Heart Disease Brother 60 [place], heavy smoker, Etoh Psychiatry Son Opoid dependency [...] well nourished.. Sk (more content not included)... [facility] 10-03-2024 History of Presen t illness Narrative Patient presents with: Follow Up HPI: Giovanna Nation is a 63 year old female who presents to the office today for follow up. Follow up blue toes Saw vascular who felt like this wasn't anything vascular, thought more related to venous stasis. Hx of adhd - sees psychiatrist [facility] in [place] - she wanted to stop strattera and [...] developmental c spine stenosis Doing PT at [facility] for her low back - seems to [...] Sister suicide Ischemic Heart Disease Brother 60 [place], heavy smoker, Etoh Psychiatry Son Opoid dependency [...] ICD9: 723.0, ICD10: M48.02 - PT at [facility] Leonarda Boykin Shingrix Vaccine(1 of 2) Never done Pneumococcal Vaccine: 50+(2 of 2 - PCV) due on 03/05/2018 Mammogram Screening due on 03/03/2022 Influenza Vaccine(1) Never done Covid-19 Vaccine( season) due on 03/16/2024 documented in this encounter [facility] 10-03-2024 Note HNO ID: [id number] Author: HARINI MENDEZ MA Service: ? Author Type: Branch Director Type: Progress Notes Filed: 10/03/2024 16:46 Note Text: Shingrix Vaccine(1 of 2) Never done Pneumococcal Vaccine: 50+(2 of 2 - PCV) due on 03/05/2018 Mammogram Screening due on 03/03/2022 Influenza Vaccine(1) Never done Covid-19 Vaccine( season) due on 03/16/2024 [facility] 09-24-2024 Instructions Bev Mcdonald MD - 09/24/2024 9:58 AM EDT We recommend you to follow with your PCP, given we do not think you have a vascular related issue documented in this encounter [facility] 09-24-2024 History of Presen t illness Narrative [facility] [place] [facility] Stringer Department of Cardiovascular Medicine SECTION [...] history of COPD (chronic obstructive pulmonary disease) ([facility]), Coronary artery disease, Diabetes ([facility]), Sleep apnea, or Stroke (HCC). Past surgical [...] complaints. Bev Reyes MD Vascular Medicine PGY-4 [facility] STAFF PHYSICIAN NOTE OF PERSONAL INVOLVEMENT IN [...] SERVICE: 10:51 AM documented in this encounter [facility] 09-24-2024 Note HNO ID: [id number] Author: DONNA MCNEIL DO Service: ? Author Type: Physician Type: Progress Notes Filed: 09/24/2024 10:54 Note Text: [facility] [place] [facility] Department of Cardiovascular Medicine SECTION [...] history of COPD (chronic obstructive pulmonary disease) ([facility]), Coronary artery disease, Diabetes ([facility]), Sleep apnea, or Stroke ([facility]). Past surgical history: has a past surgical [...] runoff to t (more content not included)... [facility] 09-16-2024 Instructions Shi Montenegro - 09/16/2024 [...] Powerstep Original Full length. Can purchase at [employer] Runner and boots,shoes and more here in [place], [employer] in [place] or [place]. Also can find in [employer] in [facility]. Powersteps can also be purchased online, starting [...] area of callus documented in this encounter [facility] 09-16-2024 Note HNO ID: [id number] Author: SHI MONTENEGRO, ? Service: ? Author [...] Sister suicide Ischemic Heart Disease Brother 60 [place], heavy smoker, Etoh Psychiatry Son Opoid dependency [...] metatarsal head. Musculoskeleta (more content not included)... [facility] 09-16-2024 History of Presen t illness [...] Sister suicide Ischemic Heart Disease Brother 60 [place], heavy smoker, Etoh Psychiatry Son Opoid dependency [...] benefit Shi Montenegro DPM Podiatry [address] [facility] [address] Dept: [phone] Dept Patient present to office for bilateral foot discoloration and corns. Patient states that she was having neck pain and was going to Physical therapy at [facility] where they were preforming dry needling. Patient states that she feels that physical therapist hit a nerve and is having tingling to all extremities and has since changed physical therapist to [facility] where they questioned if she had [...] Caitlin Tao LPN documented in this encounter [facility] 09-16-2024 Note HNO ID: [id number] Author: CAITLIN TAO LPN Service: ? Author Type: LICENSED NURSE Type: Progress Notes Filed: 09/16/2024 11:57 Note Text: Patient present to office for bilateral foot discoloration and corns. Patient states that she was having neck pain and was going to Physical therapy at [facility] where they were preforming dry needling. Patient states that she feels that physical therapist hit a nerve and is having tingling to all extremities and has since changed physical therapist to [facility] where they questioned if she had [...] had PVR on 08/25/2024. Caitlin Tao LPN [facility] 09-15-2024 Telephone encounter Note Received [facility] rehabilitation evaluation will be sent to Dr. Archer 09/16/24 for review and signature and fax to [phone] [facility] 09-15-2024 Miscellaneous Notes Received [facility] rehabilitation evaluation will be sent to Dr. Archer 09/16/24 for review and signature and fax to [phone] documented in this encounter [facility] 09-09-2024 Instructions Joanna Carbajal - 09/09/2024 12:21 PM EST Images from [...] Sinusitis Patient Education What is Sinusitis? Sinusitis [kcbr-ayu-kcxg-tis] is inflammation of the sinuses or swelling [...] help. You may be instructed to take mdwb-tzk-iloymkx medications for symptoms. including fever reducers acetaminophen or ibuprofen, nasal saline spray, cough and cold preparations and decongestants as prescribed by the physician, nurse practitioner or physician facilities assistant. Self-Care and Prevention: Rest Fluids for hydration [...] even if the symptoms go away. 2. Xmza-gnm-eklmuhl pain medication may be taken or other [...] the medicine prescribed. documented in this encounter [facility] 09-09-2024 Note HNO ID: [id number] Author: KATERIN ELLIS APRN.POLE PEELER Service: ? Author Type: Nurse Practitioner Type: [...] Sister suicide Ischemic Heart Disease Brother 60 NC, heavy smoker, Etoh Psychiatry Son Opoid dependency [...] UNIT/ML ORAL SUSPENSION Joanna Carbajal TEACHING PROVIDER (Physician/PA/LINK AND LINK KNITTING MACHINE OPERATOR) NOTE OF PERSONAL INVOLVEMENT IN CARE: I have person (more content not included)... [facility] 09-09-2024 History of Presen t illness [...] Sister suicide Ischemic Heart Disease Brother 60 [place], heavy smoker, Etoh Psychiatry Son Opoid dependency [...] UNIT/ML ORAL SUSPENSION Joanna Carbajal TEACHING PROVIDER (Physician/PA/LINK AND LINK KNITTING MACHINE OPERATOR) NOTE OF PERSONAL INVOLVEMENT IN CARE: I have personally seen and examined the patient and performed the medical decision-making components. I have reviewed the Advanced Practice Registered Nurse (LINK AND LINK KNITTING MACHINE OPERATOR) Student's documentation and verified the findings in the note as written. Any additions or changes are noted in bold/italics. Signature: Katerin Ellis Date: 09/09/2024 Time: 12:38 PM documented in this encounter [facility] 09-05-2024 Telephone encounter Note Patient aware, verbalized understanding. La Nena Mack LPN [facility] 09-05-2024 Miscellaneous Notes Patient aware, verbalized understanding. [...] calling: self Call patient at: at home [phone] (home) [phone] (cell) Was an appointment scheduled: No Closing statement: Results or non-symptom based questions: Thank you for calling [facility], your call will be returned within the next business day. Michael Zhang Pss documented in this encounter [facility] 09-05-2024 Telephone encounter Note Blood work all normal. Vitamin b12 a little high, but not concerning. Recommend keeping appointment with vascular doctor for next steps. [facility] 09-04-2024 Note HNO ID: [id number] Author: CARLOTTA ARCHER MD Service: ? Author Type: Physician Type: Progress Notes Filed: 09/06/2024 16:44 Note Text: [facility] [place] Patient presents with: Follow Up: Headaches/ has [...] 06/13/2022 TG 90 (more content not included)... [facility] 09-04-2024 History of Presen t illness Narrative Images from the original note were not included. [facility] [place] Patient presents with: Follow Up: Headaches/ has [...] since May 12 Gone until third of May 10 came back but then gone quickly. [...] DATE OF EXAM: Jan 14 2024 3:12PM [facility] 0336 - MRV BRAIN WO/W IVCON / PROCEDURE REASON: Dural venous sinus thrombosis suspected * * * * Physician Interpretation * * * * EXAMINATION: MRI CERVICAL SPINE WO IVCON, MRI BRAIN WO/W IVCON, MRV BRAIN WO/W IVCON CLINICAL HISTORY: Worsening headache for 6-8 months with left facial numbness. TECHNIQUE: Routine intracranial mass protocol with and without gadolinium. 2-D mbtx-nd-wdbmuw intracranial MRV, and coronal gradient echo volume [...] or focal significant stenosis on the 2-D yuii-gr-adrgbd and gadolinium-enhanced acquisitions. Bilateral cavernous sinuses are [...] vertebrae with counting from the craniocervical junction. [employer] Bookkeeper: ROSA Transcribe Date/Time: Jan 14 2024 3:29P [...] per Session: Patient declined Stress: Unknown (04/29/2021) [place] [facility] [employer] - Occupational Stress Questionnaire [...] Year: No Utilities: Not At Risk (01/15/2024) [facility] Utilities Threatened with loss of utilities: No Area Deprivation Index: Medium Risk (07/29/2022) Area Deprivation Index National Score (1-100), lower number is lower risk: 64 State Score (1-10), lower number is lower risk: Not on file Data from: https://www.neighborhoodatlas.[facility]/. Last address used for calculation: [address] [place] [address] Diagnosis: (M79.10) Myalgias IMP/PLAN: Giovanna Nation is 63 year old female, with left occipital neuralgia neckk and shoulder pain Restarting Gabapentin and muscle relaxant Office Visit on 09/04/24 CONSULT TO PHYSICAL THERAPY Cralotta Archer MD [facility] [place] Department of Neurology Total time in minutes spent with patient, reviewing records, labs, imaging, formulating plan, and documenting 30 minutes with more than 50% of the time spent in patient education/counselling/coordinati ng care with the patient and /or family. documented in this encounter [facility] 09-03-2024 Telephone encounter Note Giovanna is calling Leonarda Boykin MD today with concern regarding Results/ Labs Patient is calling in today for lab results. Patient has been identified by name and birthdate. Duration of symptoms: N/A Person calling: self Call patient at: at home [phone] (home) [phone] (cell) Was an appointment scheduled: No Closing statement: Results or non-symptom based questions: Thank you for calling [facility], your call will be returned within the next business day. Michael Zhang Pss [facility] 08-25-2024 Telephone encounter Note Pt saw Dr Boykin today for f/u Scheduled with vascular 09/24 [facility] 08-25-2024 Miscellaneous Notes Pt saw Dr Boykin today for f/u Scheduled with vascular 09/24 Please let patient know PVR (vascular testing of her legs) is normal. documented in this encounter [facility] 08-25-2024 Note HNO ID: [id number] Author: LEONARDA BOYKIN MD Service: ? Author [...] Sister suicide Ischemic Heart Disease Brother 60 [place], heavy smoker, Etoh Psychiatry Son Opoid dependency [...] tenderness or abnormalities. (more content not included)... [facility] 08-25-2024 History of Presen t illness [...] Sister suicide Ischemic Heart Disease Brother 60 [place], heavy smoker, Etoh Psychiatry Son Opoid dependency [...] THYROXINE Leonarda Boykin documented in this encounter [facility] 08-25-2024 Telephone encounter Note Reason for Disposition [1] Other NON-URGENT information for PCP AND [2] does not require PCP response Protocols used: PCP Call - No Prnost-GZSOC-BM [facility] 08-25-2024 Miscellaneous Notes Reason for Disposition [1] Other NON-URGENT information for PCP AND [2] does not require PCP response Protocols used: PCP Call - No [id number]-[id number] Giovanna is calling Michael Flynn MD today with concern regarding Medication Problem. Her blood pressure medication is not agreeing with her. Patient has been identified by name and birthdate. Duration of symptoms: N/A Person calling: self Call patient at: at home [phone] (home) [phone] (cell) Was an appointment scheduled: Yes. Patient is seeing Dr. Boykin today at 1:00p. Will not need a call back unless RN feels it is necessary. Closing statement: Santa Metcalf Pss documented in this encounter [facility] 08-25-2024 Telephone encounter Note Please let patient know PVR (vascular testing of her legs) is normal. [facility] 08-25-2024 Telephone encounter Note Giovanna is calling Michael Flynn MD today with concern regarding Medication Problem. Her blood pressure medication is not agreeing with her. Patient has been identified by name and birthdate. Duration of symptoms: N/A Person calling: self Call patient at: at home [phone] (home) [phone] (cell) Was an appointment scheduled: Yes. Patient is seeing Dr. Boykin today at 1:00p. Will not need a call back unless RN feels it is necessary. Closing statement: Santa Metcalf Pss [facility] Work Phone: 08-16-2024 Telephone encounter Note Attempted to reach patient. Left message with new order by PCP left on identified VM. Advised to call back to schedule. [facility] 08-16-2024 Miscellaneous Notes Attempted to reach patient. [...] Lety Eugene RN documented in this encounter [facility] 08-16-2024 Telephone encounter Note Consult placed [facility] 08-12-2024 Telephone encounter Note Spoke with pt [...] needs to schedule PVR, transferred to scheduling [facility] 08-11-2024 Telephone encounter Note Nifedipine helps with vasospasm. Yes take both. [facility] 08-11-2024 Telephone encounter Note Patient returning Alba's call from Dr. Flynn's office. She states she was taking 1/2 of one baby aspirin daily- but does not want to even take that. She thought that she was started on Nifedipine to thin her blood Asking if it is really necessary to take both aspirin and Nifedipine? Lety Eugene RN [facility] 08-08-2024 Note HNO ID: [id number] Author: MICHAEL FLYNN MD Service: ? Author [...] > left lower leg. She took an [employer] board sanding down her feet quite a [...] Sister suicide Ischemic Heart Disease Brother 60 [place], heavy smoker, Etoh Psychiatry Son Opoid dependency [...] TABLET,EXTENDED RELEASE 24 HR Michael Flynn MD [facility] 08-08-2024 History of Presen t illness Narrative ESTABLISHED PATIENT Giovanna Nation is a 63 year old female presenting for Follow Up (Feet/toes tingly,burning, calves,ankles). HISTORY OF PRESENT ILLNESS 63 year old female here for an acute appointment for feet/ toe pain She first recalls 3 months ago she noted weakness/discomfort of lateral right lower leg > left lower leg. She took an [employer] board sanding down her feet quite a [...] Sister suicide Ischemic Heart Disease Brother 60 NC, heavy smoker, Etoh Psychiatry Son Opoid dependency [...] Michael Flynn MD documented in this encounter [facility] 07-28-2024 Note HNO ID: [id number] Author: LEONARDA BOYKIN MD Service: ? Author [...] Sister suicide Ischemic Heart Disease Brother 60 NC, heavy smoker, Etoh Psychiatry Son Opoid dependency [...] help with circulation in general. Leonarda Boykin [facility] 07-28-2024 History of Presen t illness [...] Sister suicide Ischemic Heart Disease Brother 60 NC, heavy smoker, Etoh Psychiatry Son Opoid dependency [...] general. Leonarda Boykin documented in this encounter [facility] 07-15-2024 Telephone encounter Note Spoke with patient and relayed message below, she verbalized understanding. La Nena Mack LPN [facility] 07-15-2024 Telephone encounter Note ----- Message from Leonarda Boykin MD sent at 07/08/2024 9:45 AM EST ----- Labs normal so far. One autoimmune test still pending but so far no signs of anything concerning. Dr. Boykin [facility] 07-15-2024 Miscellaneous Notes Spoke with patient and relayed message below, she verbalized understanding. La Nena Mack LPN ----- Message from Leonarda Boykin MD sent at 07/08/2024 9:45 AM EST ----- Labs normal so far. One autoimmune test still pending but so far no signs of anything concerning. Dr. Boykin documented in this encounter [facility] 07-15-2024 Telephone encounter Note Rx sent. [facility] 07-15-2024 Miscellaneous Notes Rx sent. Pt called [...] review and address. documented in this encounter [facility] 07-11-2024 Telephone encounter Note Pt called again, asking to have this question addressed [facility] 07-10-2024 Telephone encounter Note Seen by Dr. [...] Boykin not available. Please review and address. [facility] 07-07-2024 Note HNO ID: [id number] Author: LEONARDA BOYKIN MD Service: ? Author [...] Sister suicide Ischemic Heart Disease Brother 60 NC, heavy smoker, Etoh Psychiatry Son Opoid dependency [...] lb 6.8 oz) (more content not included)... [facility] 07-07-2024 History of Presen t illness [...] Sister suicide Ischemic Heart Disease Brother 60 NC, heavy smoker, Etoh Psychiatry Son Opoid dependency [...] PANEL Leonarda Boykin documented in this encounter [facility] 07-05-2024 Note HNO ID: [id number] Author: TAPAN MERCHANT MD Service: ? Author [...] with PCP or rheumatology. Tapan Merchant MD [facility] 07-05-2024 History of Presen t illness [...] Tapan Merchant MD documented in this encounter [facility] 06-25-2024 History of Presen t illness Narrative [...] Starr Haines MD documented in this encounter [facility] 06-25-2024 Note HNO ID: [id number] Author: STARR HAINES MD Service: ? Author [...] of its relevant components. Starr Haines MD [facility] 06-05-2024 Note HNO ID: [id number] Author: CARLOTTA ARCHER MD Service: ? Author Type: Physician Type: Progress Notes Filed: 06/05/2024 11:45 Note Text: [facility] [place] Patient presents with: Follow Up: headaches Accompanied by Self. Interval history Pleasant 63 years old woman ,who is here for follow up For headache and tinnitus ,as reaction to the vaccine . She would like to get rid of tinnitus Headache is intermittent since May 12 Gone until of May 10 came back but then gone quickly. [...] Lab Results Component (more content not included)... [facility] 06-05-2024 History of Presen t illness Narrative Images from the original note were not included. [facility] [place] Patient presents with: Follow Up: headaches Accompanied by Self. Interval history Pleasant 63 years old woman ,who is here for follow up For headache and tinnitus ,as reaction to the vaccine . She would like to get rid of tinnitus Headache is intermittent since May 12 Gone until of May 10 came back but then gone quickly. 2 days ago had mild headache Feeling skull is tender with the headache Not sleeping well at night ,only few hours Plan To increase gabapentin to At night ,each is 100 mg capsule [...] DATE OF EXAM: Jan 14 2024 3:12PM [facility] 0336 - MRV BRAIN WO/W IVCON / PROCEDURE REASON: Dural venous sinus thrombosis suspected * * * * Physician Interpretation * * * * EXAMINATION: MRI CERVICAL SPINE WO IVCON, MRI BRAIN WO/W IVCON, MRV BRAIN WO/W IVCON CLINICAL HISTORY: Worsening headache for 6-8 months with left facial numbness. TECHNIQUE: Routine intracranial mass protocol with and without gadolinium. 2-D dvrp-mv-tzimkn intracranial MRV, and coronal gradient echo volume [...] or focal significant stenosis on the 2-D icrl-vt-qfeyau and gadolinium-enhanced acquisitions. Bilateral cavernous sinuses are [...] vertebrae with counting from the craniocervical junction. Quickbooks Bookkeeper: ROSA Transcribe Date/Time: Jan 14 2024 3:29P [...] per Session: Patient declined Stress: Unknown (04/29/2021) [place] of [facility] - Occupational Stress Questionnaire [...] Year: No Utilities: Not At Risk (01/15/2024) [facility] Utilities Threatened with loss of utilities: No Area Deprivation Index: Medium Risk (07/29/2022) Area Deprivation Index National Score (1-100), lower number is lower risk: 64 State Score (1-10), lower number is lower risk: Not on file Data from: https://www.neighborhoodatlas.[facility]/. Last address used for calculation: [address] [place] [address] Diagnosis: No diagnosis found. IMP/PLAN: Giovanna Nation is 63 year old female, here today for follow up after hospitalization for her headache Which improved and now is dull aching mild headache Increase Gabapentin to 4/day ,including 2 at night that will help her sleep better No orders found for this visit on 06/05/24. TSH BMP Carlotta rAcher MD [facility] [place] Department of Neurology Total time in minutes spent with patient, reviewing records, labs, imaging, formulating plan, and documenting 30 minutes with more than 50% of the time spent in patient education/counselling/coordinati ng care with the patient and /or family. documented in this encounter [facility] 04-23-2024 Note HNO ID: [id number] Author: STARR HAINES MD Service: ? Author Type: Physician Type: Progress Notes Filed: 04/23/2024 14:45 Note Text: Assessment and Plan 1. Dry eye syndrome of bilateral lacrimal glands 2. Meibomian gland dysfunction (MGD) of upper and lower lids of both eyes 3. Eye pain, left -main complaint is difficulty opening left eye in the morning, numbness in left side of face. Pain 3/10 -(+) sensitivity to light -Trigger: RSV vaccine [...] others. I have seen and examined Giovanna Brandy Nation. I have discussed the case and the management of this patient's care with the Resident/Fellow, if applicable. I also have reviewed and agree with the assessment and plan as stated above and agree with all of its relevant components. Starr Haines MD [facility] 04-23-2024 History of Presen t illness Narrative Assessment and Plan 1. Dry eye syndrome of bilateral lacrimal glands 2. Meibomian gland dysfunction (MGD) of upper and lower lids of both eyes 3. Eye pain, left -main complaint is difficulty opening left eye in the morning, numbness in left side of face. Pain 3/10 -(+) sensitivity to light -Trigger: RSV vaccine [...] Starr Haines MD documented in this encounter [facility] 04-23-2024 Note Patient Outreach (IN TMMN) GIOVANNA NATION ([id number]) 1960 F Date Time Provider Department 04/23/24 [...] breast cancer [Z12.31] Order(s):LACHELLE SCREENING W ABRAHAM [[id number]] Order #: [id number] FUTURE Prescriptions as of 04/28/2024 - fluorometholone [...] 04/23/2024 Noted Resolved MYALGIA AND MYOSITIS NOS [CWO4603] Tobacco use [Z72.0] 10/20/2013 01/07/2020 Depression with [...] 12/30/2023 Headache [R51.9] 01/14/2024 Encounter Status:Closed by YONATHAN PABLOUSER on 04/28/24 [facility] 04-11-2024 Note HNO ID: [id number] Author: PIERRE MONTGOMERY, PT Service: ? Author [...] Stop Time : 1455 Pierre Montgomery PT [facility] 04-11-2024 History of Presen t illness [...] WNL bilaterally Cervical AROM WNL Shoulder strength 11/17 Posture: Good TREATMENT: Therapeutic Exercise: 1: Chin [...] Stop Time : 1455 Pierre Montgomery PT documented in this encounter [facility] 03-25-2024 Note HNO ID: [id number] Author: PIERRE MONTGOMERY PT Service: ? Author [...] SPORTS THERAPY PHYSICAL THERAPY TREATMENT NOTE ASSESSMENT: Gioavnna Nation tolerated the session with good tolerance. [...] Stop Time : 1541 Pierre Montgomery PT [facility] 03-25-2024 History of Presen t illness [...] Pierre Montgomery PT documented in this encounter [facility] 03-18-2024 Note HNO ID: [id number] Author: PIERRE MONTGOMERY PT Service: ? Author [...] trap Needle length: 50mm 2.0 in . [place] used 3, needles removed 3. Dry needling [...] Stop Time : 1549 Pierre Montgomery PT [facility] 03-18-2024 History of Presen t illness [...] trap Needle length: 50mm 2.0 in . [place] used 3, needles removed 3. Dry needling [...] Time (minutes): 50 Session Start Time : 9 Session Stop Time : 154 Pierre Montgomery PT documented in this encounter [facility] 03-11-2024 Note HNO ID: [id number] Author: PIERRE MONTGOMERY PT Service: ? Author [...] 1.2 in and 50mm 2.0 in . [place] used 2, needles removed 2. Dry needling [...] and assessment of patient's response to intervention. Self-Retirement Management: 1: Discussed sleeping with a towel [...] Stop Time : 1630 Pierre Montgomery PT [facility] 03-11-2024 History of Presen t illness [...] 1.2 in and 50mm 2.0 in . [place] used 2, needles removed 2. Dry needling [...] and assessment of patient's response to intervention. Self-Retirement Management: 1: Discussed sleeping with a towel [...] Pierre Montgomery PT documented in this encounter [facility] 03-05-2024 Note HNO ID: [id number] Author: CARLOTTA ARCHER MD Service: ? Author Type: Physician Type: Progress Notes Filed: 03/05/2024 20:59 Note Text: [facility] [place] March 05, 2024 Consultation My final recommendations will be communicated back to the requesting physician by way of shared medical record or letter via [place] mail. Referring physician:Emily Solis [place] [phone] Patient presents with: Consult: headache Accompanied by Self. [facility] [place] [phone]. HISTORY AND PHYSICAL Ms. Nation is a [...] Value Date W (more content not included)... [facility] 03-05-2024 History of Presen t illness Narrative Images from the original note were not included. [facility] [place] March 05, 2024 Consultation My final recommendations will be communicated back to the requesting physician by way of shared medical record or letter via US mail. Referring physician:Emily Tejada [place] [phone] Patient presents with: Consult: headache Accompanied by Self. Referred by Emily Tejada [facility] [id number]. HISTORY AND PHYSICAL Ms. Nation is a [...] DATE OF EXAM: Jan 14 2024 3:12PM [facility] 0336 - MRV BRAIN WO/W IVCON / PROCEDURE REASON: Dural venous sinus thrombosis suspected * * * * Physician Interpretation * * * * EXAMINATION: MRI CERVICAL SPINE WO IVCON, MRI BRAIN WO/W IVCON, MRV BRAIN WO/W IVCON CLINICAL HISTORY: Worsening headache for 6-8 months with left facial numbness. TECHNIQUE: Routine intracranial mass protocol with and without gadolinium. 2-D nmqc-yn-hfaaol intracranial MRV, and coronal gradient echo volume [...] or focal significant stenosis on the 2-D lgkh-zr-rvgrqc and gadolinium-enhanced acquisitions. Bilateral cavernous sinuses are [...] vertebrae with counting from the craniocervical junction. Quickbooks Bookkeeper: ROSA Transcribe Date/Time: Jan 14 2024 3:29P [...] per Session: Patient declined Stress: Unknown (04/29/2021) [place] of Occupational [facility] - Occupational Stress Questionnaire [...] Year: No Utilities: Not At Risk (01/15/2024) [facility] Utilities Threatened with loss of utilities: No Area Deprivation Index: Medium Risk (07/29/2022) Area Deprivation Index National Score (1-100), lower number is lower risk: 64 State Score (1-10), lower number is lower risk: Not on file Data from: https://www.neighborhoodatlas.[place]/. Last address used for calculation: [address] Diagnosis: (R51.9) Chronic daily headache (primary encounter diagnosis) (M54.2) Neck pain IMP/PLAN: Giovanna Nation is 63 year old female, here today for follow up after hospitalization for her headache Which improved and now is dull aching mild headache Office Visit on 03/05/24 METHYLMALONIC ACID CONSULT TO PHYSICAL THERAPY TSH BMP Carlotta Archer MD [facility] [place] Department of Neurology Total time in minutes spent with patient, reviewing records, labs, imaging, formulating plan, and documentin minutes with more than 50% of the time spent in patient education/counselling/coordinati ng care with the patient and /or family. documented in this encounter [facility] 03-03-2024 Telephone encounter Note Submitted request for prior authorization for Xdemvy via Cover my meds. Denial received because there is no documentation indicating patient has tried and failed existing FDA approved and/or clinical therapies. Please advise Heidi Hardin March 03, 2024 1:33 PM [facility] 03-03-2024 Miscellaneous Notes Submitted request for prior authorization for Xdemvy via Cover my meds. Denial received because there is no documentation indicating patient has tried and failed existing FDA approved and/or clinical therapies. Please advise Heidi Hardin March 03, 2024 1:33 PM documented in this encounter [facility] 02-27-2024 Instructions Starr Haines MD - 02/27/2024 8:40 AM EDT -xdemvy twice a day both eyes -erythromycin ointment at bedtime both eyes documented in this encounter [facility] 02-27-2024 History of Presen t illness Narrative [...] 2024 8:21 AM documented in this encounter [facility] 02-27-2024 Note HNO ID: [id number] Author: STARR HAINES MD Service: ? Author [...] Haines MD February 27, 2024 8:21 AM [facility] 02-19-2024 Note HNO ID: [id number] Author: PIERRE MONTGOMERY, PT Service: ? Author [...] Patient to be seen for Therapeutic exercise (14287), Neuromuscular re-education (54869), Manual therapy (49210), Therapeutic activities (21441), Self-mcfp management (56143), Patient/Family/Caregiver Education SUBJECTIVE: Was told by pain [...] 925 Session Stop Time : 1012 Pierre Montgomery, PT [facility] 02-19-2024 History of Presen t illness [...] Patient to be seen for Therapeutic exercise (04351), Neuromuscular re-education (78160), Manual therapy (97407), Therapeutic activities (88018), Self-mcfp management (58323), Patient/Family/Caregiver Education SUBJECTIVE: Was told by pain [...] Pierre Montgomery PT documented in this encounter [facility] 02-18-2024 Note HNO ID: [id number] Author: RAJEEV HODGE MD Service: ? Author Type: Physician Type: Progress Notes Filed: 02/18/2024 12:36 Note Text: [facility] Date: February 18, 2024 [...] Sister suicide Ischemic Heart Disease Brother 60 [place], heavy smoker, Etoh Psychiatry Son Opoid dependency [...] Panel: No results found for: UQCANN, UQBNZL, XLY1PKA, UQAMPH, UQMAMP, UQBUPRE, UQNORBUP, UQMTHD, UQEDDP, UQTRAM, [...] was intact. Bi (more content not included)... [facility] 02-18-2024 History of Presen t illness Narrative [facility] Date: February 18, 2024 [...] Sister suicide Ischemic Heart Disease Brother 60 [place], heavy smoker, Etoh Psychiatry Son Opoid dependency [...] Panel: No results found for: UQCANN, UQBNZL, PIH3MMI, UQAMPH, UQMAMP, UQBUPRE, UQNORBUP, UQMTHD, UQEDDP, UQTRAM, [...] diagnostic tests reviewed for today's visit: The [facility] EMR was reviewed during the visit [...] but also diagnostic information that procedures provide. [facility] use of any opioid pain medication is [...] physician. February 18, 2024 cc: Thi Moss [facility] [place] [phone] Results of consultation to be transmitted via electronic medical record for those providers who practice within [facility] or with access to [employer] via MD Connect, or via letter. documented in this encounter [facility] 02-12-2024 Note HNO ID: [id number] Author: AWILDA DARBY PT Service: ? Author Type: Physical Therapist Type: Progress Notes Filed: 02/12/2024 11:01 Note Text: 02/12/2024 [facility]ICAL [...] therapy or scheduled additional follow-up appointments. Awilda Darby PT [facility] 02-12-2024 Note HNO ID: [id number] Author: PIERRE MONTGOMERY PT Service: ? Author [...] 1.0 in and 50mm 2.0 in . [place] used 4, needles removed 4. Dry needling [...] Stop Time : 911 Pierre Montgomery PT [facility] 02-12-2024 History of Presen t illness [...] 1.0 in and 50mm 2.0 in . [place] used 4, needles removed 4. Dry needling [...] Pierre Montgomery PT documented in this encounter [facility] 02-07-2024 Telephone encounter Note Prescription Refill Information [...] times a day for 30 days. Michael Vicente Pss February 07, 2024 12:08 PM [facility] 02-07-2024 Miscellaneous Notes Prescription Refill Information The [...] 2024 12:08 PM documented in this encounter [facility] 01-29-2024 History of Presen t illness Narrative [...] and assessment of patient's response to intervention. Self-Retirement Management: 1: Discussed reading Why do I [...] Pierre Montgomery PT documented in this encounter [facility] 01-22-2024 History of Presen t illness Narrative .This note was created using Voyatriter. Subjective Giovanna Nation is a 63 year old female. Patient is being seen today for hospital follow up She was admitted to [facility] 01/14/2024 - 01/15/2024 for headache She reports [...] Sister suicide Ischemic Heart Disease Brother 60 [place], heavy smoker, Etoh Psychiatry Son Opoid dependency [...] Michael Flynn MD documented in this encounter [facility] 01-01-2024 Telephone encounter Note Notified patient-she agrees to plan. Patient verbalizes understanding and has no other questions or concerns at this time. Lety Eugene RN [facility] 01-01-2024 Miscellaneous Notes Notified patient-she agrees to [...] with next BW documented in this encounter [facility] 01-01-2024 Telephone encounter Note Called patient regarding message below, no answer. Left message to call office back. Lety Eugene RN [facility] 01-01-2024 Telephone encounter Note BW reveals heavy metal screening normal B12 is actually elevated - you can cut your B12 supplement in 1/2 and recheck with next BW [facility] 12-31-2023 History of Presen t illness Narrative Program_ID:[id number] Access Code: [email or web address] URL: [email or web address] Date: 12-31-2023 Prepared By: Awilda Darby Program [...] of Care: created on 11/20/23 through 01/19/24 [place] in home exercise program. - MET Patient [...] Patient to be seen for Therapeutic exercise (14127), Neuromuscular re-education (50888), Manual therapy (57989), Therapeutic activities (27792), Self-mcfp management (61285), Patient/Family/Caregiver Education PLAN FOR NEXT VISIT: (STM [...] Pierre Montgomery PT documented in this encounter [facility] 12-28-2023 History of Presen t illness Narrative ESTABLISHED PATIENT Giovanna Nation is a 63 year old female presenting for No chief complaint on file.. HISTORY OF PRESENT ILLNESS Here to establish. Former PCP Dr Hortencia Love [facility] She saw her PCP Dr Love [...] Varied jobs / longest - worked at [employer] Former smoker quit 2019 PMH HTN ADHD MDD Vit B12 deficiency Vit D deficiency HISTORIES FAMILY HISTORY Problem Relation Age of Onset Cancer Mother Cervical cancer- treated Psychiatry Sister suicide Ischemic Heart Disease Brother 60 [place], heavy smoker, Etoh Psychiatry Son Opoid dependency [...] Michael Flynn MD documented in this encounter [facility] 12-28-2023 History of Presen t illness Narrative [...] electronic medical record. documented in this encounter [facility] 12-17-2023 Hortencia Gee DO - 12/17/2023 9:57 AM EDT Please schedule your MRI of your brain See your new PCP for continued follow up Hortencia Love DO documented in this encounter [facility] 12-17-2023 History of Presen t illness Narrative Images from the original note were not included. [facility] [place] Department of General Internal Medicine [facility] CC: follow up HPI: ELI in 10/2023 [...] ICD10: F90.9 Following with psychiatry Back on strattera 7. Primary hypertension - ICD9: 401.9, ICD10: [...] with more than 50% of the total odkw-vx-blmp time of the visit in counseling / coordination of care. SIGNATURE: Hortencia Love DO Associate Staff General Internal Medicine PAGER: [phone] DATE of SERVICE: 12/17/23 TIME of SERVICE: 7:22 AM Behavioral Health Screening PHQ-2 Score: 0 (Lower risk for depression) Recommendation: continuing current treatment plan documented in this encounter [facility] 12-13-2023 History of Presen t illness Narrative [...] and assessment of patient's response to intervention. Self-Retirement Management: 1: Discussed central sensitivity symptoms and causes. 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 Skilled Intervention: Skilled judgment in the selection [...] Pierre Montgomery PT documented in this encounter [facility] 12-03-2023 History of Presen t illness Narrative Program_ID:[id number] Access Code: [email or web address] URL: [email or web address] Date: 12-03-2023 Prepared By: Awilda Darby Program [...] MICHELLE Lehman PT documented in this encounter [facility] 11-23-2023 Instructions Isabel Menjivar MD - 11/23/2023 [...] are healing, please send your provider a iScreen [employer] message or call . SKIN CARE AFTER [...] are healing, please send your provider a [employer] message or call . documented in this encounter [facility] 11-23-2023 History of Presen t illness Narrative EST PATIENT LV: 10/09/22 w/Patti Kailee [employer] CHIEF COMPLAINT: Skin check HISTORY OF PRESENT [...] on crown of scalp and nose - [employer] eczematous papule on left lower leg - [...] Past Histories independently gathered by the clinical arch support technician, and the remaining scribed note accurately describes [...] Isabel Menjivar MD documented in this encounter [facility] 11-20-2023 History of Presen t illness Narrative Program_ID:[id number] Access Code: [email or web address] URL: [email or web address] Date: 11-20-2023 Prepared By: Awilda Darby Program [...] of Care: created on 11/20/23 through 01/19/24 [place] in home exercise program. Patient will increase [...] Planned: 8 Planned Treatment Interventions: Therapeutic exercise (16486), Neuromuscular re-education (95477), Manual therapy (31814), Therapeutic activities (83720), Self-mcfp management (54749), Patient/Family/Caregiver Education PLAN FOR NEXT VISIT: Initiate [...] covid) Right or Left Handed: Right Employment: [employer]: See Comment [employer] Occupation: [employer]; not currently working Recreation / Current Exercise: [...] Shoulder Shoulder Special Tests: Empty Can, Nick-Marcial, Giles, Neer Empty Can: Right Positive Nick-Marcial: Right Positive Neer: Right Positive Giles: Right Positive Vitals Pulse: 72 Education: Education [...] Awilda Darby PT documented in this encounter [facility] 11-20-2023 History of Presen t illness Narrative Fabricio Merrill M.D. chief executive officer [facility] Transportation [facility] [place] [address] INITIAL ENCOUNTER FOR A NEW SHOULDER PROBLEM [...] sensation in the shoulder. Was seen in [place] by another provider and is here for [...] Sister suicide Ischemic Heart Disease Brother 60 [place], heavy smoker, Etoh Psychiatry Son Opoid dependency [...] facility-administered medications for this visit. Physical Exam: LMP 02/11/2006 Constitutional: Pleasant, well-appearing, no acute distress. Resp: breathing is unlabored without audible wheeze Vascular: Normal pedal and radial pulses, no cyanosis, no venous stasis changes Skin: No overlying skin change, ecchymosis, or erythema. Psychiatric: Pleasant, direct, appropriate mood and affect General Orthopaedic Examination: Ambulates well. No other major joint abnormalities noted. Motor: 5/5 IO, FPL, OP, hand sericulturist, biceps, triceps, deltoid Sensory: SILT ulnar/median/radial distributions [...] PA-C CC:Hortencia Love documented in this encounter [facility] 11-13-2023 History of Presen t illness Narrative [...] Sister suicide Ischemic Heart Disease Brother 60 [place], heavy smoker, Etoh Psychiatry Son Opoid dependency [...] tick - CONSULT TO DERMATOLOGY Daniel Whatley APRN.[employer]ER documented in this encounter [facility] 10-15-2023 History of Presen t illness Narrative [...] which included preparing to see the patient, mmwx-sr-pflr patient care, completing clinical documentation, obtaining and/or reviewing separately obtained history, performing a medically appropriate examination, counseling and educating the patient/family/caregiver, and ordering medications, tests, or procedures. Nhung Saavedra APRN.SUNG documented in this encounter [facility] 06-08-2023 History of Presen t illness Narrative [...] IV DATA: Not applicable SIGNED BY: RT Wisam(R) June 08, 2023 1:57 PM documented in this encounter [facility] 06-06-2023 Miscellaneous Notes Patient returned call and message was given. She will get done on Sunday She asked about elevated levels that was mentioned on her message. documented in this encounter [facility] 05-22-2023 Miscellaneous Notes Images from the original [...] had no questions. documented in this encounter [facility] 05-21-2023 History of Presen t illness Narrative Images from the original note were not included. [facility] [place] Department of General Internal Medicine [facility] CHIEF COMPLAINT: cough, skin concern HPI: Giovanna [...] than recent cough- investigate with labs - [facility] SCREENING - COMP METABOLIC PANEL - CBC [...] with more than 50% of the total odtu-su-qvmc time of the visit in counseling / coordination of care. SIGNATURE: Hortencia Love DO Associate Staff General Internal Medicine PAGER: [phone] DATE of SERVICE: 05/21/23 TIME of SERVICE: 7:48 AM documented in this encounter [facility] 05-08-2023 Miscellaneous Notes Patient called the office and the message from the MD was delivered. Attempted to call patient, left voicemail. Juliana Bo RN Attempted to call patient, long distance code is not working. After being entered a beeping sounds starts and doesn't stop. Juliana Bo RN Images from the original note were not [...] Thanks- Hortencia :) documented in this encounter [facility] 05-07-2023 Instructions Hortencia Love DO - 05/07/2023 [...] to review. Blood pressure logs: Approved by [employer] [employer]: ValidateBP.org Bring your monitor in to your office visits so that we can be sure it matches up with ours! [employer] recommends the following cuff size: [...] with your numbers documented in this encounter [facility] 05-07-2023 History of Presen t illness Narrative Images from the original note were not included. [facility] [place] Department of General Internal Medicine [facility] CHIEF COMPLAINT: follow up BP HPI: Giovanna [...] following with psych - provider switched to [facility] but continues to rx her [...] with more than 50% of the total [id number] time of the visit in counseling / coordination of care. SIGNATURE: Hortencia Love DO Associate Staff General Internal Medicine PAGER: [phone] DATE of SERVICE: 05/06/23 TIME of SERVICE: 2:20 PM documented in this encounter [facility] 04-16-2023 Nurse Note Giovanna Nation presents today to Internal Medicine for a nurse visit. Patient verified by name and . Allergies reviewed and verified. Reason for Nurse Visit: Immunization Covid Pt identified by name and date of . Allergies reviewed. yes VIS discussed with patient with good understanding. yes vaccine given as ordered in right deltoid, patient tolerated well. See Immunization Form in [facility] for details of immunizations administered today. VIS sheet given. Doc Flow Nursing Scorecard has been completed: Yes Charge Capture has been updated and filed appropriately. Yes Follow up instructions given and After Visit Summary was provided to patient. Yes Bill Reese LPN documented in this encounter [facility] 04-13-2023 Miscellaneous Notes Patient identified by name and date of . Patient given message below. No questions at this time. 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 BREAST and AXILLA: normal. Milieu Coordinator present LUNGS: Lungs clear to auscultation. No [...] Abs Lymph 1.00 - 4.00 k/uL 1.78 Weakley% % 8.7 Abs Weakley <0.87 k/uL 0.46 Eosin% % 1.3 Abs [...] which included preparing to see the patient, [id number] patient care, completing clinical documentation, obtaining and/or reviewing separately obtained history, and counseling and educating the patient/family/caregiver. Scribe Attestation: By signing my name below, I, Lucia Elder, attest that this documentation has been prepared under the direction and in the presence of Atiya Holly MD Electronically Signed: Piper Sidhu. January 08, 2023 12:44 PM IAtiya MD, personally performed the services described in this documentation. All medical record entries made by the scribe were at my direction and in my presence. I have reviewed the chart and discharge instructions (if applicable) and agree that the record reflects my personal performance and is accurate and complete. Electronically Signed: Atiya Holly MD. January 08, 2023 documented in this encounter [facility] 01-08-2023 Nurse Note AND CORRECT NAME VERIFIED BY PATIENT. Vero Cherry Ma January 08, 2023 12:19 PM documented in this encounter [facility] 10-24-2022 Miscellaneous Notes I have sent PA form to [facility] for patients Tretinoin SENT ELECTRONICALLY THOUGH [employer] DX used L81.4 documented in this encounter [facility] 10-10-2022 Miscellaneous Notes Patient returned your call and can be reached at: Call patient at: at home [phone] (home) [phone] (cell) FINAL DIAGNOSIS A. Skin, left lower lid, shave biopsy: - Epidermal inclusion cyst. Called patient to discuss biopsy results. Pt understands and has no further questions. Patti Dugan APRN.[employer] documented in this encounter [facility] 10-09-2022 History of Presen t illness Narrative EST PATIENT Last visit: [facility] 02/2021 Kassandra KHAN Chief Complaint: FBSE History [...] Past Histories independently gathered by the clinical arch support technician and the remaining scribed note accurately describes my personal service to the patient. Patti Dugan APRN.CNP documented in this encounter [facility] 06-20-2022 Miscellaneous Notes AND CORRECT NAME VERIFIED BY PATIENT. Dr. Patricio's message given to Ms. Nation and she was able to repeat information back correctly. She will go at the end of this week for blood work. Luisa Giron RN June 20, 2022 9:40 AM Hortencia Love, DO Can we please review with patient that labs are overall normal and not concerning She has a slightly elevated potassium and should have this lab repeated at some point this week or next to be sure it is normalizing. I have placed the lab for her Happy to discuss if she has questions Thank you Hortencia documented in this encounter [facility] 06-13-2022 Instructions Hortencia Love DO - 06/13/2022 11:39 AM EST Please get your labs done I will be happy to help you with mental health care transition in the spring Dr. Love documented in this encounter [facility] 06-13-2022 History of Presen t illness Narrative Images from the original note were not included. [facility] [place] Department of General Internal Medicine [facility] PATIENT NAME: Giovanna Nation PCP: Hortencia Love [...] noted in after visit summary. SIGNATURE: Hortencia Lvoe DO Associate Staff General Internal Medicine PAGER: [phone] DATE of SERVICE: 06/13/22 TIME of SERVICE: 11:19 AM documented in this encounter [facility] 04-11-2022 History of Presen t illness Narrative Patient presents for COVID booster. Denies any problems at this time. Tolerated injection well. Meghann Yun LPN documented in this encounter [facility] 01-11-2022 History of Presen t illness Narrative [...] 2022 10:36 AM documented in this encounter [facility] 01-11-2022 History of Presen t illness Narrative [...] once daily. OTC NUTRITIONAL SUPPLEMENT Garden of Life, once daily womensCopper 2 mg dailyFish Oil [...] 4V PA/LAT/OBL/SCAPH RIGHT -no acute fracture. First JAIL joint arthritis. Continue supportive care for wrist sprain. 2. Acute right ankle pain - ICD9: 719.47, 338.19, ICD10: M25.571 Ankle contusion/strain. Low suspicion for fracture. Continue supportive care. Tapan Merchant MD documented in this encounter [facility] 11-29-2021 History of Presen t illness Narrative Patient presents for COVID booster. Denies any problems at this time. Tolerated injection well. Meghann Yun LPN documented in this encounter [facility] 05-10-2021 Note HNO ID: [id number] Author: BILL Arevalo Service: Psychiatry Author Type: Drug Abuse Social Worker Type: Plan of Care Filed: 05/10/2021 1:35 [...] Treatment Plan Date Initiated: 05/07/21 Time Initiated: 958 Patient Participation in Initial Treatment Plan: Yes [...] Towards Short Term Goals: Adequate for discharge Process Architect Goals: Patient/support system will verbalize intent to comply with medication and treatment after discharge Target Date Process Architect Goals: 05/10/21 Progress Towards Halfway Goals: Adequate for discharge Interventions - Nursing: [...] with this plan: Attending: Kaela Nurse: Yvonne Drug Abuse Social Worker: Zhao Church Therapy: Char This plan was reviewed with patient/family. Attending Psychiatrist: Kaela DOCUMENTED BY: BILL Arevalo PATIENT NAME: Giovanna Nation DATE: May 10, 2021 TIME: 1:34 PM [facility] 05-09-2021 Note HNO ID: [id number] Author: Tianna Sherwood, LEONOR.POLE PEELER Service: Psychiatry Author Type: Nurse Practitioner Type: Progress Notes Filed: 06/01/2021 3:31 PM Note Text: Attestation signed by Landon Villatoro MD at 06/14/2021 10:56 AM Staff Addendum: I have seen and examined the patient with the [facility] and have discussed the case and the [...] DISCHARGE PLANNING: possibly tomorrow SIGNATURE: Tianna Sherwood APRN.[facility] PATIENT NAME: Giovanna Nation DATE: May 09, 2021 TIME: Tianna Sherwood APRN.[facility] 05-08-2021 Note HNO ID: [id number] Author: Ilan Coronado MD Service: Psychiatry Author [...] 2. REENA 3. R/O anxiety d/o 2/2 [facility] [place] GAF: 25 -30-21 Behavior is considerably [...] DATE: May 08, 2021 TIME: 11:36 AM [facility] 08-21-2016 History of Past i llness Narrative Problem Noted Date Resolved Date Closed fracture of distal end of left radius 12/201607/02/2018 Depression with anxiety 11/19/2015 03/17/20 21 Overview: Seeing Dr Travis, on lexapro Sister suicide Son opoid addiction Tobacco use 10/20/2013 01/07/2020 documented as of this encounter (statuses as of 11/29/2021) [facility] History of Past illness Narrative* Problem Noted Date Resolved Date Closed fracture of distal end of left radius 12/201607/02/2018 Depression with anxiety 11/19/2015 03/17/20 21 Overview: Seeing Dr Travis, on lexapro Sister suicide Son opoid addiction Tobacco use 10/20/2013 01/07/2020 documented as of this encounter (statuses as of 01/11/2022) [facility] History of Past illness Narrative* Problem Noted Date Resolved Date Closed fracture of distal end of left radius 12/201607/02/2018 Depression with anxiety 11/19/2015 03/17/20 21 Overview: Seeing Dr Travis, on lexapro Sister suicide Son opoid addiction Tobacco use 10/20/2013 01/07/2020 documented as of this encounter (statuses as of 04/10/2022) [facility] History of Past illness Narrative* Problem Noted Date Resolved Date Closed fracture of distal end of left radius 12/201607/02/2018 Depression with anxiety 11/19/2015 03/17/20 21 Overview: Seeing Dr Travis, on lexapro Sister suicide Son opoid addiction Tobacco use 10/20/2013 01/07/2020 documented as of this encounter (statuses as of 04/11/2022) [facility] History of Past illness Narrative* Problem Noted Date Resolved Date Closed fracture of distal end of left radius 12/201607/02/2018 Depression with anxiety 11/19/2015 03/17/20 21 Overview: Seeing Dr Travis, on lexapro Sister suicide Son opoid addiction Tobacco use 10/20/2013 01/07/2020 documented as of this encounter (statuses as of 06/15/2022) [facility] of Past illness Narrative* Problem Noted Date Resolved Date Closed fracture of distal end of left radius 12/201607/02/2018 Depression with anxiety 11/19/2015 03/17/20 21 Overview: Seeing Dr Travis, on lexapro Sister suicide Son opoid addiction Tobacco use 10/20/2013 01/07/2020 documented as of this encounter (statuses as of 06/20/2022) [facility] History of Past illness Narrative* Problem Noted Date Resolved Date Closed fracture of distal end of left radius 12/201607/02/2018 Depression with anxiety 11/19/2015 03/17/20 21 Overview: Seeing Dr Travis, on lexapro Sister suicide Son opoid addiction Tobacco use 10/20/2013 01/07/2020 documented as of this encounter (statuses as of 10/09/2022) [facility] of [facility] illness Narrative* Problem Noted Date Resolved Date Closed fracture of distal end of left radius 12/201607/02/2018 Depression with anxiety 11/19/2015 03/17/20 21 Overview: Seeing Dr Travis, on lexapro Sister suicide Son opoid addiction Tobacco use 10/20/2013 01/07/2020 documented as of this encounter (statuses as of 10/10/2022) [facility] of [facility] illness Narrative* Problem Noted Date Resolved Date Closed fracture of distal end of left radius 12/201607/02/2018 Depression with anxiety 11/19/2015 03/17/20 21 Overview: Seeing Dr Travis, on lexapro Sister suicide Son opoid addiction Tobacco use 10/20/2013 01/07/2020 documented as of this encounter (statuses as of 10/25/2022) [facility] of [facility] Narrative* Problem Noted Date Resolved Date Closed fracture of distal end of left radius 12/201607/02/2018 Depression with anxiety 11/19/2015 03/17/20 21 Overview: Seeing Dr Travis, on lexapro Sister suicide Son opoid addiction Tobacco use 10/20/2013 01/07/2020 documented as of this encounter (statuses as of 01/09/2023) [facility] History of [facility] illness Narrative* Problem Noted Date Diagnosed Date Resolved Date Closed fracture of distal end of left radius 7 07/02/2018 Depression with anxiety 11/19/201508/2020 Overview: Seeing Dr Travis, on lexapro Sister suicide Son opoid addiction Tobacco use 10/20/2013 01/07/2020 documented as of this encounter (statuses as of 03/12/2023) [facility] of [facility] illness Narrative* Problem Noted Date Diagnosed Date Resolved Date Closed fracture of distal end of left radius 7 07/02/2018 Depression with anxiety 11/19/201508/2020 Overview: Seeing Dr Travis, on lexapro Sister suicide Son opoid addiction Tobacco use 10/20/2013 01/07/2020 documented as of this encounter (statuses as of 04/13/2023) [facility] of [facility] illness Narrative* Problem Noted Date Diagnosed Date Resolved Date Closed fracture of distal end of left radius 7 07/02/2018 Depression with anxiety 11/19/201508/2020 Overview: Seeing Dr Travis, on lexapro Sister suicide Son opoid addiction Tobacco use 10/20/2013 01/07/2020 documented as of this encounter (statuses as of 04/17/2023) [facility] of [facility] Narrative* Problem Noted Date Diagnosed Date Resolved Date Closed fracture of distal end of left radius 7 07/02/2018 Depression with anxiety 11/19/20150 08/2020 Overview: Seeing Dr Travis, on lexapro Sister suicide Son opoid addiction Tobacco use 10/20/2013 01/07/2020 documented as of this encounter (statuses as of 05/08/2023) [facility] of [facility] illness Narrative* Problem Noted Date Diagnosed Date Resolved Date Closed fracture of distal end of left radius 7 07/02/2018 Depression with anxiety 11/19/2015 09/0 08/2020 Overview: Seeing Dr Travis, on lexapro Sister suicide Son opoid addiction Tobacco use 10/20/2013 01/07/2020 documented as of this encounter (statuses as of 05/12/2023) [facility] of [facility] Narrative* Problem Noted Date Diagnosed Date Resolved Date Closed fracture of distal end of left radius 7 07/02/2018 Depression with anxiety 11/19/2015 090 08/2020 Overview: Seeing Dr Travis, on lexapro Sister suicide Son opoid addiction Tobacco use 10/20/2013 01/07/2020 documented as of this encounter (statuses as of 05/23/2023) [facility] of [facility] Narrative* Problem Noted Date Diagnosed Date Resolved Date Closed fracture of distal end of left radius 7 07/02/2018 Depression with anxiety 11/19/2015 09/0 08/2020 Overview: Seeing Dr Travis, on lexapro Sister suicide Son opoid addiction Tobacco use 10/20/2013 01/07/2020 documented as of this encounter (statuses as of 05/27/2023) [facility] Narrative* Problem Noted Date Diagnosed Date Resolved Date Closed fracture of distal end of left radius 7 07/02/2018 Depression with anxiety 11/19/20150 08/2020 Overview: Seeing Dr Travis, on lexapro Sister suicide Son opoid addiction Tobacco use 10/20/2013 01/07/2020 documented as of this encounter (statuses as of 06/06/2023) [facility] of [facility] Narrative* Problem Noted Date Diagnosed Date Resolved Date Closed fracture of distal end of left radius 7 07/02/2018 Depression with anxiety 11/19/2015 09/0 08/2020 Overview: Seeing Dr Travis, on lexapro Sister suicide Son opoid addiction Tobacco use 10/20/2013 01/07/2020 documented as of this encounter (statuses as of 06/09/2023) [facility] History of Past illness Narrative* Problem Noted Date Diagnosed Date Resolved Date Closed fracture of distal end of left radius 7 07/02/2018 Depression with anxiety 11/19/2015 09/08/2020 Overview: Seeing Dr Travis, on mingoapro Sister suicide Son opoid addiction Tobacco use 10/20/2013 01/07/2020 documented as of this encounter (statuses as of 10/16/2023) [facility] [place] [facility] Diagnosis Need for vaccination- Primary Need for prophylactic vaccination and inoculation against unspecified single disease [facility] [place] [facility] Diagnosis Acute wrist pain, right- Primary Acute right ankle pain [facility] [place] [facility] Diagnosis Encounter for screening mammogram for breast cancer [facility] [place] [facility] Diagnosis Need for vaccination- Primary Need for prophylactic vaccination and inoculation against unspecified single disease [facility] [place] [facility] Diagnosis Severe episode of recurrent major depressive disorder, without psychotic features (HCC)- Primary Skin lesion Unspecified disorder of skin and subcutaneous tissue Change of skin color Screening cholesterol level Screening for lipoid disorders [facility] [place] [facility]* Diagnosis Multiple benign nevi- Primary Benign neoplasm of skin, site unspecified Seborrheic keratosis Other seborrheic keratosis Neoplasm of unspecified behavior of bone, soft tissue, and skin Lentigines Other dyschromia Angioma of skin Hemangioma of skin and subcutaneous tissue [facility] [place] [facility] Diagnosis Elevated BP without diagnosis of hypertension- Primary Screening for colon cancer Special screening for malignant neoplasms, colon Attention deficit hyperactivity disorder (ADHD), unspecified ADHD type [facility] [place] [facility] Diagnosis Encounter for screening mammogram for breast cancer [facility] [place] [facility] Diagnosis Need for vaccination- Primary Need for prophylactic vaccination and inoculation against unspecified single disease [facility] [place] [facility] Diagnosis Encounter for immunization- Primary Need for other specified prophylactic vaccination against single bacterial disease Severe episode of recurrent major depressive disorder, without psychotic features (HCC) Unspecified essential hypertension Therapeutic drug monitoring Encounter for therapeutic drug monitoring Hyperkalemia Hyperpotassemia [facility] [place] [facility] Diagnosis Acute cough- Primary Weight loss Loss of weight Dry scalp Acquired keratoderma [facility] CRP elevated- Primary Elevated C-reactive protein (CRP) Weight loss Loss of weight Vitamin D deficiency Unspecified vitamin D deficiency [facility] [place] [facility] Diagnosis Weight loss Loss of weight Acute cough [facility] [place] [facility] Diagnosis Facial paresthesia- Primary Benign essential HTN Essential hypertension, benign [facility] [place] [facility]* Diagnosis Skin lesion- Primary Unspecified disorder of skin and subcutaneous tissue [facility] [place] [facility] Diagnosis Impingement of right shoulder- Primary [facility] [place] [facility] Diagnosis Acute pain of right shoulder- Primary Impingement of right shoulder [facility] [place] [facility]* Diagnosis Skin exam, screening for cancer- Primary Screening for malignant neoplasm of the skin Lepe angioma Nevus, non-neoplastic Lentigines Other dyschromia Multiple benign nevi Benign neoplasm of skin, site unspecified Seborrheic keratoses Other seborrheic keratosis Dysesthesia of scalp Rash and nonspecific skin eruption Rash and other nonspecific skin eruption Actinic keratoses Actinic keratosis [facility] Acute pain of right shoulder- Primary [facility] [place] [facility] Diagnosis Acute pain of right shoulder- Primary [facility] [place] [facility]* Diagnosis Facial paresthesia- Primary New onset of headaches after age 50 Headache Eye pain, left Neuralgic facial pain Other facial nerve disorders Severe episode of recurrent major depressive disorder, without psychotic features (HCC) Attention deficit hyperactivity disorder (ADHD), unspecified ADHD type Primary hypertension Unspecified essential hypertension [facility] [place] [facility] Diagnosis Otalgia, bilateral- Primary Facial paresthesia Headaches Sore throat Acute pharyngitis [facility] Left facial numbness- Primary Disturbance of skin sensation New daily persistent headache Vitamin B12 deficiency Other B-complex deficiencies Severe episode of recurrent major depressive disorder, without psychotic features (HCC) Attention deficit hyperactivity disorder (ADHD), unspecified ADHD type Primary hypertension Unspecified essential hypertension [facility] [place] [facility] Diagnosis Acute pain of right shoulder- Primary [facility] [place] [facility] Diagnosis Cervicogenic headache- Primary Headache Left facial numbness Disturbance of skin sensation [facility] [place] [facility] Diagnosis Acute pain of right shoulder- Primary [facility] [place] [facility] Diagnosis Acute pain of right shoulder- Primary [facility] [place] [facility] Diagnosis Myofascial pain syndrome, cervical- Primary Mylagia and myositis, unspecified Spasm of cervical paraspinous muscle Spasm of muscle [facility] [place] [facility] Diagnosis Pain in left wrist- Primary Pain in joint, forearm Chronic left shoulder pain Pain in joint, shoulder region [facility] [place] [facility] Diagnosis Dry eye syndrome of bilateral lacrimal glands- Primary Tear film insufficiency, unspecified Meibomian gland dysfunction (MGD) of upper and lower lids of both eyes Eye pain, left [facility] [place] [facility]* Diagnosis Chronic daily headache- Primary Headache Neck pain Cervicalgia [facility] [place] [facility] Diagnosis Pain in left wrist- Primary Pain in joint, forearm Chronic left shoulder pain Pain in joint, shoulder region [facility] [place] [facility] Diagnosis Pain in left wrist- Primary Pain in joint, forearm Chronic left shoulder pain Pain in joint, shoulder region documented in this encounter [place] [facility] [place] [facility] Diagnosis Pain in left wrist- Primary Pain in joint, forearm Chronic left shoulder pain Pain in joint, shoulder region [facility] [place] [facility] Diagnosis Acute wrist pain, right [facility] [place] [facility] Diagnosis Pain in left wrist- Primary Pain in joint, forearm Chronic left shoulder pain Pain in joint, shoulder region [facility] [place] [facility]* Diagnosis Dry eye syndrome of bilateral lacrimal glands- Primary Tear film insufficiency, unspecified Meibomian gland dysfunction (MGD) of upper and lower lids of both eyes Eye pain, left [facility] [place] [facility]* Diagnosis Encounter for screening mammogram for breast cancer [facility] [place] [facility]* Diagnosis Chronic daily headache- Primary Headache documented in this encounter [facility] note* Diagnosis Chilblains, initial encounter- Primary [facility] [place] [facility]* Diagnosis Raynaud disease without gangrene- Primary Hypokalemia Hypopotassemia [facility] [place] [facility]* Diagnosis Primary hypertension- Primary Unspecified essential hypertension Raynaud's disease without gangrene [facility] [place] [facility]* Diagnosis Raynaud's disease without gangrene- Primary Primary hypertension Unspecified essential hypertension Pain in both feet Pain in limb [facility] [place] [facility] Diagnosis Raynaud's disease without gangrene- Primary [facility] [place] [facility]* Diagnosis Primary hypertension- Primary Unspecified essential hypertension Raynaud's disease without gangrene [facility] [place] [facility]* Diagnosis Myalgias- Primary Cold intolerance Other general symptoms [facility] [place] [facility]* Diagnosis Myalgias [facility] [place] [facility]* Diagnosis Bacterial sinusitis- Primary Unspecified sinusitis (chronic) Acute otitis media, left Unspecified otitis media Oral thrush Candidiasis of mouth [facility] [place] [facility]* Diagnosis Porokeratosis- Primary Other specified congenital anomaly of skin Raynaud's disease without gangrene [facility] [place] [facility]* Diagnosis Tingling in extremities- Primary Disturbance of skin sensation Anxiety about health [facility] [place] [facility]* Diagnosis Lumbar spondylolysis- Primary Acquired spondylolisthesis Myalgias Venous congestion Cervical stenosis of spinal canal Spinal stenosis in cervical region [facility] [place] [facility]* Diagnosis Black stools- Primary Nonspecific abnormal finding in stool contents [facility] [place] [facility]* Diagnosis Cervical stenosis of spinal canal- Primary Spinal stenosis in cervical region Lumbar spondylolysis Acquired spondylolisthesis Left hip pain Pain in joint, pelvic region and thigh documented [facility] [place] [facility]* Diagnosis Right hip pain Pain in joint, pelvic region and thigh documented [facility] [place] [facility]* Diagnosis Primary hypertension Unspecified essential hypertension [facility] [place] [facility]* Diagnosis Right hip pain- Primary Pain in joint, pelvic region and thigh Vertigo Dizziness and giddiness Tendinopathy of right gluteus medius [facility] Diagnosis Periorbital ecchymosis of right eye, initial encounter- Primary documented in this encounter [facility] Work Phone: Hospital Discharge instructions* Attachments The following attachments cannot be sent through Care Everywhere. * Black eye ED discharge instructions (Yakut) [facility]: Reason for referral (narrative)* Diagnostic Procedure Only (Urgent) - Closed Specialty Diagnoses / Procedures Referred By Criselda mims Referred To Contact XR IMAGING Diagnoses Acute wrist pain, right Procedures XR WRIST INJURY 4V PA/LAT/OBL/SCAPH RIGHT RADEX WRIST COMPLETE MINIMUM 3 VIEWS Tapan Merchant MD [address] [place] [address] Xr Imaging Referral ID Status Reason Start Date Expiration Date V isits Requested Visits Authorized [id number] Closed Auto-Generate d Referral 01/11/2022 02/10/2023 1 1 [facility] for referral (narrative)* Diagnostic Procedure Only (Routine) - Pending Review Specialty Diagnoses / Procedures Referred By Criselda mims Referred To Contact BR IMAGING Diagnoses Encounter for screening mammogram for breast cancer Procedures LACHELLE SCREENING SCREENING MAMMOGRAPHY BI 2-VIEW BREAST INC Hortencia Conner DO [address] [place] [address] Br Imaging [address] [place] [address] Referral ID Status Reason Start Date Expiration Date Visits Requested Visits Authorized [id number] Pending Review Auto-Generat ed Referral 04/05/2022 05/05/2023 1 1 T [facility] for referral (narrative)* Diagnostic Procedure Only (Routine) - Pending Review Specialty Diagnoses / Procedures Referred By Contisaura t Referred To Contact BR IMAGING Diagnoses Encounter for screening mammogram for breast cancer Procedures LACHELLE SCREENING SCREENING MAMMOGRAPHY BI 2-VIEW BREAST INC CAD Hortencia Love DO [address] [place] [address] Br Imaging [address] [place] [address] Referral ID Status Reason Start Date Expiration Date Visits Requested Visits Authorized [id number] Pending Review Auto-Generat ed Referral 03/07/2023 04/05/2024 1 1 [facility] for referral (narrative)* Diagnostic Procedure Only (Routine) - Pending Review Specialty Diagnoses / Procedures Referred By Criselda t Referred To Contact BR IMAGING Diagnoses Weight loss Procedures LACHELLE SCREENING SCREENING MAMMOGRAPHY BI 2-VIEW BREAST INC CAD Hortencia Love DO [address] [place] [address] Br Imaging [address] [place] [phone] Referral ID Status Reason Start Date Expiration Date Visits Requested Visits Authorized [id number] Pending Review Auto-Generat ed Referral 05/21/2023 06/19/2024 1 1 [facility] for referral (narrative)* Diagnostic Procedure Only (Urgent) - Closed Specialty Diagnoses / Procedures Referred By Criselda mims Referred To Contact XR IMAGING Diagnoses Acute wrist pain, right Procedures XR WRIST INJURY 4V PA/LAT/OBL/SCAPH RIGHT RADEX WRIST COMPLETE MINIMUM 3 VIEWS Tapan Merchant MD [address] [place] [address] Xr Imaging [id number] Referral ID Status Reason Start Date Expiration Date V isits Requested Visits Authorized [id number] Closed Auto-Generate d Referral 01/11/2022 02/10/2023 1 1 [facility] for referral (narrative)* Diagnostic Procedure Only (Routine) - New Request Specialty Diagnoses / Procedures Referred By Criselda t Referred To Contact BR IMAGING Diagnoses Encounter for screening mammogram for breast cancer Procedures LACHELLE SCREENING W ABRAHAM SCREENING DIGITAL BREAST TOMOSYNTHESIS BI SCREENING MAMMOGRAPHY BI 2-VIEW BREAST INC CAD Flynn, Michael, MD [address] [place] [address] Br Imaging [address] [place] [address] Referral ID Status Reason Start Date Expiration Date Visits Requested Visits Authorized [id number] New Request Auto-Generat ed Referral 04/23/2024 05/23/2025 1 1 [facility] for referral (narrative)* Outpatient Procedure (Routine) - New Request Specialty Diagnoses / Procedures Referred By Contac t Referred To Contact [facility] Diagnoses Pain in both feet Procedures PVR ANK PRESS DEYA VAS LAB NON-INVAS PHYSIOLOGIC STD EXTREMITY ART 2 LEVEL Michael Flynn MD [address] [place] [address] [facility] [address] [place] [address] Referral ID Status Reason Start Date Expiration Date Visits Requested Visits Authorized [id number] New Request Auto-Generat ed Referral 08/08/2024 08/08/2025 1 1 [facility] for visit Narrative* Diagnostic Procedure Only (Urgent) - Closed Specialty Diagnoses / Procedures Referred By Contac t Referred To Contact XR IMAGING Diagnoses Acute wrist pain, right Procedures XR WRIST INJURY 4V PA/LAT/OBL/SCAPH RIGHT RADEX WRIST COMPLETE MINIMUM 3 VIEWS Tapan Merchant MD [address] [place] [address] [place] [id number] Referral ID Status Reason Start Date Expiration Date V isits Requested Visits Authorized [id number] Closed Auto-Generate d Referral 01/11/2022 02/10/2023 1 1 [facility] for visit Narrative* Diagnostic Procedure Only (Routine) - Closed Specialty Diagnoses / Procedures Referred By Contac t Referred To Contact XR IMAGING Diagnoses Right hip pain Procedures XR HIP GENERAL 3V PELV/AP/LAT RIGHT RADEX HIP UNILATERAL WITH PELVIS 2-3 VIEWS Leonarda Boykin MD [address] 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 Advance Directive(s) 05/07/2021 5:20 AM Advance Directive(s) 05/06/2021 7:19 PM Advance Directive(s) 12/25/2020 3:00 PM Advance Directive(s) 04/19/2019 11:06 AM Advance Directive(s) 08/20/2018 6:59 AM Advance Directive(s) 12/24/2016 2:52 PM Documents on File Type Date Recorded 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 Advance Directive(s) 05/07/2021 5:20 AM [...] paresthesia Procedures CONSULT TO ENT OFFICE/OUTPATIENT NEW HIGH MDM 60 MINUTES Nhung Saavedra APRN.[facility]ELER [address] [place] [address] Referral ID Status Reason Start Date Expiration Date Visits Requested Visits Authorized [id number] Authorized PCP Requested Referral 10/15/2023 10/14/2024 1 1 Specialty Diagnoses / Procedures Referred By Contac t Referred To Contact Dermatology Diagnoses Skin lesion Procedures CONSULT TO DERMATOLOGY Daniel Whatley APRN.[facility]ER [address] [place] [address] Referral ID Status Reason Start Date Expiration Date Visits Requested Visits Authorized [id number] Ref Not Required PCP Requested Referral 11/13/2023 11/12/2024 1 1 Specialty Diagnoses / Procedures Referred By Contac t Referred To Contact [facility] Diagnoses Impingement of right shoulder Procedures CONSULT TO PHYSICAL THERAPY PHYSICAL THERAPY EVALUATION HIGH COMPLEX 45 MINS Juliane Denise PA-C [address] [place] [address] [facility] [place] [phone] Referral ID Status Reason Start Date Expiration Date V isits Requested Visits Authorized [id number] Closed Auto-Generate d Referral 07/16/2023 07/15/2024 1 1 Specialty Diagnoses / Procedures Referred By Contac t Referred To Contact [facility] Diagnoses Impingement of right shoulder Acute pain of right shoulder Procedures PT REHAB FOLLOW UP ORDER THERAPEUTIC EXERCISES RE, [place] [address] [place] [address] [facility] [address] [address] Referral ID Status Reason Start Date Expiration Date Visits Requested Visits Authorized [id number] Pending Review PCP Requested Referral Auto-Generate d Referral 11/20/2023 02/18/2024 1 1 Specialty Diagnoses / Procedures Referred By Contac t Referred To Contact MR IMAGING Diagnoses Facial paresthesia New onset of headaches after age 50 Eye pain, left Neuralgic facial pain Procedures MRI BRAIN WO/W IVCON MRI BRAIN BRAIN STEM W/O W/CONTRAST MATERIAL Hortencia Love DO [address] [place] [address] [place] [address] Referral ID Status Reason Start Date Expiration Date Visits Requested Visits Authorized [id number] Pending Review Auto-Generat ed Referral 12/17/2023 01/15/2025 1 1 Specialty Diagnoses / Procedures Referred By Contac t Referred To Contact [facility] Diagnoses Acute pain of right shoulder Procedures PT REHAB FOLLOW UP ORDER THERAPEUTIC EXERCISES RE, EA 15 MIN. Pierre Montgomery, PT [address] [place] [address] [facility] [place] [phone] Referral ID Status Reason Start Date Expiration Date Visits Requested Visits Authorized [id number] Pending Review PCP Requested Referral Auto-Generate d Referral 12/31/2023 03/30/2024 1 1 Specialty Diagnoses / Procedures Referred By Contac t Referred To Contact [facility] Diagnoses Myofascial pain syndrome, cervical Procedures CONSULT TO PHYSICAL THERAPY PHYSICAL THERAPY EVALUATION HIGH COMPLEX 45 MINS Rajeev Hodge MD [address] [place] [address] [address] [place] [address] Referral ID Status Reason Start Date Expiration Date Visits Requested Visits Authorized [id number] Pending Review Auto-Generat ed Referral 02/18/2024 02/17/2025 1 1 Specialty Diagnoses / Procedures Referred By Contac t Referred To Contact [facility] Diagnoses Pain in left wrist Chronic left shoulder pain Procedures PT REHAB FOLLOW UP ORDER THERAPEUTIC EXERCISES RE, EA 15 MIN. Rajeev Hodge MD [address] [place] [address] [address] [place] [phone] Referral ID Status Reason Start Date Expiration Date Visits Requested Visits Authorized [id number] New Request PCP Requested Referral Auto-Generate d Referral 02/19/2024 05/19/2024 1 1 Specialty Diagnoses / Procedures Referred By Contac t Referred To Contact Starr Haines MD [address] [place], [place] [id number] Referral ID Status Reason Start Date Expiration Date V isits Requested Visits Authorized [id number] Pending Review 1 1 Specialty Diagnoses / Procedures Referred By Contac t Referred To Contact [facility] Diagnoses Chronic daily headache Neck pain Procedures CONSULT TO PHYSICAL THERAPY PHYSICAL THERAPY EVALUATION HIGH COMPLEX 45 MINS Carlotta Archer MD [address] [place] [address] [facility] [place] [address] [place] [address] Referral ID Status Reason Start Date Expiration Date Visits Requested Visits Authorized [id number] Pending Review Auto-Generat ed Referral 03/05/2024 03/05/2025 1 1 Specialty Diagnoses / Procedures Referred By Contac t Referred To Contact Vascular Medicine Diagnoses Raynaud's disease without gangrene Procedures CONSULT TO VASCULAR MEDICINE OFFICE/OUTPATIENT [facility] MDM 60 MINUTES Michael Flynn MD [address] [place] [address] Referral ID Status Reason Start Date Expiration Date Visits Requested Visits Authorized [id number] Authorized PCP Requested Referral 08/16/2024 08/16/2025 1 1 Additional Source Comments INFORMATION SOURCE (unrecogn ized section and content) DATE CREATED AUTHOR 07/06/2021 [facility] DATE CREATED AUTHOR AUTHOR'S ORGANIZ ATION 08/27/2024 [facility] DATE CREATED AUTHOR AUTHOR'S ORGANIZ ATION 02/08/2025 [facility] DATE CREATED AUTHOR AUTHOR'S ORGANIZ ATION 03/12/2025 [facility] DATE CREATED AUTHOR AUTHOR'S ORGANIZ ATION 03/30/2025 [facility] Source Comments (unrecognize d section and content) In the event this informatio n is protected by the Federal Confidentiality of Alcohol and Drug Abuse Patient Records regulations: The Federal rules restrict any use of the information to criminally investigate or prosecute any alcohol or drug abuse patient.[facility] event this information is protected by the Federal Confidentiality of Alcohol and Drug Abuse Patient Records regulations: The Federal rules restrict any use of the information to criminally investigate or prosecute any alcohol or drug abuse patient.[facility] the event this information is protected by the Federal Confidentiality of Alcohol and Drug Abuse Patient Records regulations: The Federal rules restrict any use of the information to criminally investigate or prosecute any alcohol or drug abuse patient.[facility] the event this information is protected by the Federal Confidentiality of Alcohol and Drug Abuse Patient Records regulations: The Federal rules restrict any use of the information to criminally investigate or prosecute any alcohol or drug abuse patient.[facility] the event this information is protected by the Federal Confidentiality of Alcohol and Drug Abuse Patient Records regulations: The Federal rules restrict any use of the information to criminally investigate or prosecute any alcohol or drug abuse patient.[facility] the event this information is protected by the Federal Confidentiality of Alcohol and Drug Abuse Patient Records regulations: The Federal rules restrict any use of the information to criminally investigate or prosecute any alcohol or drug abuse patient.[facility] the event this information is protected by the Federal Confidentiality of Alcohol and Drug Abuse Patient Records regulations: The Federal rules restrict any use of the information to criminally investigate or prosecute any alcohol or drug abuse patient.[facility] the event this information is protected by the Federal Confidentiality of Alcohol and Drug Abuse Patient Records regulations: The Federal rules restrict any use of the information to criminally investigate or prosecute any alcohol or drug abuse patient.[facility] the event this information is protected by the Federal Confidentiality of Alcohol and Drug Abuse Patient Records regulations: The Federal rules restrict any use of the information to criminally investigate or prosecute any alcohol or drug abuse patient.[facility] the event this information is protected by the Federal Confidentiality of Alcohol and Drug Abuse Patient Records regulations: The Federal rules restrict any use of the information to criminally investigate or prosecute any alcohol or drug abuse patient.[facility] the event this information is protected by the Federal Confidentiality of Alcohol and Drug Abuse Patient Records regulations: The Federal rules restrict any use of the information to criminally investigate or prosecute any alcohol or drug abuse patient.[facility] the event this information is protected by the Federal Confidentiality of Alcohol and Drug Abuse Patient Records regulations: The Federal rules restrict any use of the information to criminally investigate or prosecute any alcohol or drug abuse patient.[facility] the event this information is protected by the Federal Confidentiality of Alcohol and Drug Abuse Patient Records regulations: The Federal rules restrict any use of the information to criminally investigate or prosecute any alcohol or drug abuse patient.[facility] the event this information is protected by the Federal Confidentiality of Alcohol and Drug Abuse Patient Records regulations: The Federal rules restrict any use of the information to criminally investigate or prosecute any alcohol or drug abuse patient.[facility] the event this information is protected by the Federal Confidentiality of Alcohol and Drug Abuse Patient Records regulations: The Federal rules restrict any use of the information to criminally investigate or prosecute any alcohol or drug abuse patient.[facility] the event this information is protected by the Federal Confidentiality of Alcohol and Drug Abuse Patient Records regulations: The Federal rules restrict any use of the information to criminally investigate or prosecute any alcohol or drug abuse patient.[facility] the event this information is protected by the Federal Confidentiality of Alcohol and Drug Abuse Patient Records regulations: The Federal rules restrict any use of the information to criminally investigate or prosecute any alcohol or drug abuse patient.[facility] the event this information is protected by the Federal Confidentiality of Alcohol and Drug Abuse Patient Records regulations: The Federal rules restrict any use of the information to criminally investigate or prosecute any alcohol or drug abuse patient.[facility] the event this information is protected by the Federal Confidentiality of Alcohol and Drug Abuse Patient Records regulations: The Federal rules restrict any use of the information to criminally investigate or prosecute any alcohol or drug abuse patient.[facility] the event this information is protected by the Federal Confidentiality of Alcohol and Drug Abuse Patient Records regulations: The Federal rules restrict any use of the information to criminally investigate or prosecute any alcohol or drug abuse patient.[facility] the event this information is protected by the Federal Confidentiality of Alcohol and Drug Abuse Patient Records regulations: The Federal rules restrict any use of the information to criminally investigate or prosecute any alcohol or drug abuse patient.[facility]In the event this information is protected by the Federal Confidentiality of Alcohol and Drug Abuse Patient Records regulations: The Federal rules restrict any use of the information to criminally investigate or prosecute any alcohol or drug abuse patient.[facility] the event this information is protected by the Federal Confidentiality of Alcohol and Drug Abuse Patient Records regulations: The Federal rules restrict any use of the information to criminally investigate or prosecute any alcohol or drug abuse patient.[facility] the event this information is protected by the Federal Confidentiality of Alcohol and Drug Abuse Patient Records regulations: The Federal rules restrict any use of the information to criminally investigate or prosecute any alcohol or drug abuse patient.[facility] the event this information is protected by the Federal Confidentiality of Alcohol and Drug Abuse Patient Records regulations: The Federal rules restrict any use of the information to criminally investigate or prosecute any alcohol or drug abuse patient.[facility] the event this information is protected by the Federal Confidentiality of Alcohol and Drug Abuse Patient Records regulations: The Federal rules restrict any use of the information to criminally investigate or prosecute any alcohol or drug abuse patient.[facility]In the event this information is protected by the Federal Confidentiality of Alcohol and Drug Abuse Patient Records regulations: The Federal rules restrict any use of the information to criminally investigate or prosecute any alcohol or drug abuse patient.[facility]In the event this information is protected by the Federal Confidentiality of Alcohol and Drug Abuse Patient Records regulations: The Federal rules restrict any use of the information to criminally investigate or prosecute any alcohol or drug abuse patient.[facility] HospitalIn the event this information is protected by the Federal Confidentiality of Alcohol and Drug Abuse Patient Records regulations: The Federal rules restrict any use of the information to criminally investigate or prosecute any alcohol or drug abuse patient.[facility] HospitalIn the event this information is protected by the Federal Confidentiality of Alcohol and Drug Abuse Patient Records regulations: The Federal rules restrict any use of the information to criminally investigate or prosecute any alcohol or drug abuse patient.[facility] HospitalIn the event this information is protected by the Federal Confidentiality of Alcohol and Drug Abuse Patient Records regulations: The Federal rules restrict any use of the information to criminally investigate or prosecute any alcohol or drug abuse patient.[facility] HospitalIn the event this information is protected by the Federal Confidentiality of Alcohol and Drug Abuse Patient Records regulations: The Federal rules restrict any use of the information to criminally investigate or prosecute any alcohol or drug abuse patient.[facility] HospitalIn the event this information is protected by the Federal Confidentiality of Alcohol and Drug Abuse Patient Records regulations: The Federal rules restrict any use of the information to criminally investigate or prosecute any alcohol or drug abuse patient.[facility] HospitalIn the event this information is protected by the Federal Confidentiality of Alcohol and Drug Abuse Patient Records regulations: The Federal rules restrict any use of the information to criminally investigate or prosecute any alcohol or drug abuse patient.[facility] HospitalIn the event this information is protected by the Federal Confidentiality of Alcohol and Drug Abuse Patient Records regulations: The Federal rules restrict any use of the information to criminally investigate or prosecute any alcohol or drug abuse patient.[facility] HospitalIn the event this information is protected by the Federal Confidentiality of Alcohol and Drug Abuse Patient Records regulations: The Federal rules restrict any use of the information to criminally investigate or prosecute any alcohol or drug abuse patient.[facility] HospitalIn the event this information is protected by the Federal Confidentiality of Alcohol and Drug Abuse Patient Records regulations: The Federal rules restrict any use of the information to criminally investigate or prosecute any alcohol or drug abuse patient.[facility] HospitalIn the event this information is protected by the Federal Confidentiality of Alcohol and Drug Abuse Patient Records regulations: The Federal rules restrict any use of the information to criminally investigate or prosecute any alcohol or drug abuse patient.[facility] HospitalIn the event this information is protected by the Federal Confidentiality of Alcohol and Drug Abuse Patient Records regulations: The Federal rules restrict any use of the information to criminally investigate or prosecute any alcohol or drug abuse patient.[facility] HospitalIn the event this information is protected by the Federal Confidentiality of Alcohol and Drug Abuse Patient Records regulations: The Federal rules restrict any use of the information to criminally investigate or prosecute any alcohol or drug abuse patient.[facility] HospitalIn the event this information is protected by the Federal Confidentiality of Alcohol and Drug Abuse Patient Records regulations: The Federal rules restrict any use of the information to criminally investigate or prosecute any alcohol or drug abuse patient.[facility] HospitalIn the event this information is protected by the Federal Confidentiality of Alcohol and Drug Abuse Patient Records regulations: The Federal rules restrict any use of the information to criminally investigate or prosecute any alcohol or drug abuse patient.[facility] HospitalIn the event this information is protected by the Federal Confidentiality of Alcohol and Drug Abuse Patient Records regulations: The Federal rules restrict any use of the information to criminally investigate or prosecute any alcohol or drug abuse patient.[facility] HospitalIn the event this information is protected by the Federal Confidentiality of Alcohol and Drug Abuse Patient Records regulations: The Federal rules restrict any use of the information to criminally investigate or prosecute any alcohol or drug abuse patient.[facility] HospitalIn the event this information is protected by the Federal Confidentiality of Alcohol and Drug Abuse Patient Records regulations: The Federal rules restrict any use of the information to criminally investigate or prosecute any alcohol or drug abuse patient.[facility] HospitalIn the event this information is protected by the Federal Confidentiality of Alcohol and Drug Abuse Patient Records regulations: The Federal rules restrict any use of the information to criminally investigate or prosecute any alcohol or drug abuse patient.[facility] HospitalIn the event this information is protected by the Federal Confidentiality of Alcohol and Drug Abuse Patient Records regulations: The Federal rules restrict any use of the information to criminally investigate or prosecute any alcohol or drug abuse patient.[facility] HospitalIn the event this information is protected by the Federal Confidentiality of Alcohol and Drug Abuse Patient Records regulations: The Federal rules restrict any use of the information to criminally investigate or prosecute any alcohol or drug abuse patient.[facility] HospitalIn the event this information is protected by the Federal Confidentiality of Alcohol and Drug Abuse Patient Records regulations: The Federal rules restrict any use of the information to criminally investigate or prosecute any alcohol or drug abuse patient.[facility] HospitalIn the event this information is protected by the Federal Confidentiality of Alcohol and Drug Abuse Patient Records regulations: The Federal rules restrict any use of the information to criminally investigate or prosecute any alcohol or drug abuse patient.[facility] HospitalIn the event this information is protected by the Federal Confidentiality of Alcohol and Drug Abuse Patient Records regulations: The Federal rules restrict any use of the information to criminally investigate or prosecute any alcohol or drug abuse patient.[facility] HospitalIn the event this information is protected by the Federal Confidentiality of Alcohol and Drug Abuse Patient Records regulations: The Federal rules restrict any use of the information to criminally investigate or prosecute any alcohol or drug abuse patient.[facility] HospitalIn the event this information is protected by the Federal Confidentiality of Alcohol and Drug Abuse Patient Records regulations: The Federal rules restrict any use of the information to criminally investigate or prosecute any alcohol or drug abuse patient.[facility] HospitalIn the event this information is protected by the Federal Confidentiality of Alcohol and Drug Abuse Patient Records regulations: The Federal rules restrict any use of the information to criminally investigate or prosecute any alcohol or drug abuse patient.[facility] HospitalIn the event this information is protected by the Federal Confidentiality of Alcohol and Drug Abuse Patient Records regulations: The Federal rules restrict any use of the information to criminally investigate or prosecute any alcohol or drug abuse patient.[facility] HospitalIn the event this information is protected by the Federal Confidentiality of Alcohol and Drug Abuse Patient Records regulations: The Federal rules restrict any use of the information to criminally investigate or prosecute any alcohol or drug abuse patient.[facility] HospitalIn the event this information is protected by the Federal Confidentiality of Alcohol and Drug Abuse Patient Records regulations: The Federal rules restrict any use of the information to criminally investigate or prosecute any alcohol or drug abuse patient.[facility] HospitalIn the event this information is protected by the Federal Confidentiality of Alcohol and Drug Abuse Patient Records regulations: The Federal rules restrict any use of the information to criminally investigate or prosecute any alcohol or drug abuse patient.[facility] HospitalIn the event this information is protected by the Federal Confidentiality of Alcohol and Drug Abuse Patient Records regulations: The Federal rules restrict any use of the information to criminally investigate or prosecute any alcohol or drug abuse patient.[facility] HospitalIn the event this information is protected by the Federal Confidentiality of Alcohol and Drug Abuse Patient Records regulations: The Federal rules restrict any use of the information to criminally investigate or prosecute any alcohol or drug abuse patient.[facility] HospitalIn the event this information is protected by the Federal Confidentiality of Alcohol and Drug Abuse Patient Records regulations: The Federal rules restrict any use of the information to criminally investigate or prosecute any alcohol or drug abuse patient.[facility] HospitalIn the event this information is protected by the Federal Confidentiality of Alcohol and Drug Abuse Patient Records regulations: The Federal rules restrict any use of the information to criminally investigate or prosecute any alcohol or drug abuse patient.[facility] HospitalIn the event this information is protected by the Federal Confidentiality of Alcohol and Drug Abuse Patient Records regulations: The Federal rules restrict any use of the information to criminally investigate or prosecute any alcohol or drug abuse patient.[facility] HospitalIn the event this information is protected by the Federal Confidentiality of Alcohol and Drug Abuse Patient Records regulations: The Federal rules restrict any use of the information to criminally investigate or prosecute any alcohol or drug abuse patient.[facility] HospitalIn the event this information is protected by the Federal Confidentiality of Alcohol and Drug Abuse Patient Records regulations: The Federal rules restrict any use of the information to criminally investigate or prosecute any alcohol or drug abuse patient.[facility] HospitalIn the event this information is protected by the Federal Confidentiality of Alcohol and Drug Abuse Patient Records regulations: The Federal rules restrict any use of the information to criminally investigate or prosecute any alcohol or drug abuse patient.[facility] HospitalIn the event this information is protected by the Federal Confidentiality of Alcohol and Drug Abuse Patient Records regulations: The Federal rules restrict any use of the information to criminally investigate or prosecute any alcohol or drug abuse patient.[facility] HospitalIn the event this information is protected by the Federal Confidentiality of Alcohol and Drug Abuse Patient Records regulations: The Federal rules restrict any use of the information to criminally investigate or prosecute any alcohol or drug abuse patient.[facility] HospitalIn the event this information is protected by the Federal Confidentiality of Alcohol and Drug Abuse Patient Records regulations: The Federal rules restrict any use of the information to criminally investigate or prosecute any alcohol or drug abuse patient.[facility] HospitalIn the event this information is protected by the Federal Confidentiality of Alcohol and Drug Abuse Patient Records regulations: The Federal rules restrict any use of the information to criminally investigate or prosecute any alcohol or drug abuse patient.[facility] HospitalIn the event this information is protected by the Federal Confidentiality of Alcohol and Drug Abuse Patient Records regulations: The Federal rules restrict any use of the information to criminally investigate or prosecute any alcohol or drug abuse patient.[facility] HospitalIn the event this information is protected by the Federal Confidentiality of Alcohol and Drug Abuse Patient Records regulations: The Federal rules restrict any use of the information to criminally investigate or prosecute any alcohol or drug abuse patient.[facility] HospitalIn the event this information is protected by the Federal Confidentiality of Alcohol and Drug Abuse Patient Records regulations: The Federal rules restrict any use of the information to criminally investigate or prosecute any alcohol or drug abuse patient.[facility] HospitalIn the event this information is protected by the Federal Confidentiality of Alcohol and Drug Abuse Patient Records regulations: The Federal rules restrict any use of the information to criminally investigate or prosecute any alcohol or drug abuse patient.[facility] Reason for Visit (unrecogniz ed section and [...] months follow up Procedures 4C EST Self Crow LoveleDO [address] [place] [address] Referral ID Status Reason Start Date Expiration Date Visits Re quested Visits Authorized [id number] Closed 05/07/2023 05/15/2023 1 1 Reason Comments [...] HIGH COMPLEX 45 MINS Juliane Denise PA-C [address] [place] [address] [facility] [address] [place] [address] Referral ID Status Reason Start Date Expiration Date V isits Requested Visits Authorized [id number] Closed Auto-Generate d Referral 07/16/2023 07/15/2024 1 1 Reason Comments LESION, SKIN Reason Comments Physical Therapy Specialty Diagnoses / Procedures Referred By Contac t Referred To Contact [facility] Diagnoses Impingement of right shoulder Acute pain of right shoulder Procedures PT REHAB FOLLOW UP ORDER THERAPEUTIC EXERCISES RE, EA [address] [place] [address] [place] [address] [facility] [address] [place] [address] Referral ID Status Reason Start Date Expiration Date Visits Requested Visits Authorized [id number] Authorized PCP Requested Referral Auto-Generate d Referral 11/22/2023 02/20/2024 8 8 Reason Comments facial paresthesia Started in Sept when she thought she had a sinus [...] Referred By Criselda t Referred To Contact Ent - Otolaryngology Diagnoses Facial paresthesia Procedures CONSULT TO ENT OFFICE/OUTPATIENT [facility] MDM 60 MINUTES Nhung Saavedra, LEONOR.PO[employer] PEELER [address] [facility] [address] [place] [address] Referral ID Status Reason Start Date Expiration Date V isits Requested Visits Authorized [id number] Closed PCP Requested Referral 10/15/2023 10/14/2024 1 1 Reason Comments Establish Care Reason Comments PT Progress Note Specialty Diagnoses / Procedures Referred By Criselda t Referred To Contact [facility] Diagnoses Impingement of right shoulder Acute pain of right shoulder Procedures PT REHAB FOLLOW UP ORDER THERAPEUTIC EXERCISES RE, [place] [address] [place] [address] [place] [address] [facility] [address] [place] [address] Reason Comments Follow Up Reason Onset Date Comments Refill Request 02/07/2024 Reason Comments Dry Eye Syndrome Evaluation Reason Comments Consult headache Specialty Diagnoses / Procedures [facility] Contact [facility] Diagnoses Pain in left wrist Chronic left shoulder pain Procedures PT REHAB FOLLOW UP ORDER THERAPEUTIC EXERCISES RE, EA 15 MIN. Rajeev Hodge MD [address] [facility] [place] [address] [facility] [address] [place] [address] Referral ID Status Reason Start Date Expiration Date Visits Requested Visits Authorized [id number] Authorized PCP Requested Referral Auto-Generate d Referral 02/20/2024 05/20/2024 4 4 Reason Comments Insurance Authorization [id number] Reason Comments PT Discharge Specialty Diagnoses / Procedures [facility] Referred To Contact PHYSICAL THERAPY Diagnoses Pain in left wrist Chronic left shoulder pain Procedures PT REHAB FOLLOW UP ORDER THERAPEUTIC EXERCISES RE, EA 15 MIN. Rajeev Hodge MD [address] [facility] [address] [place] [address] Pt [facility] [address] [place] [address] Referral ID Status Reason Start Date Expiration Date V isits Requested Visits Authorized [id number] Closed PCP Requested Referral Auto-Generated Referral 02/20/2024 [...] Consult Specialty Diagnoses / Procedures Referred By Contac t Referred To Contact Vascular Medicine Diagnoses Raynaud's disease without gangrene Procedures CONSULT TO VASCULAR MEDICINE OFFICE/OUTPATIENT NEW HIGH MDM 60 MINUTES Michael Flynn MD [address] [place] [address] Phone: tel: fax: Referral ID Status Reason Start Date Expiration Date V isits Requested Visits Authorized [id number] Closed PCP Requested Referral 08/16/2024 08/16/2025 1 1 Reason Comments Orders Consult Gastro provider Reason Comments Question Reason Onset Date Comments Results 02/09/2025 Reason Comments Follow Up On neck & back pain, still hasn't picked up prescription, did have an episode where she was in an elevator that caused dizziness Reason Comments Eye Problem Patient believes carols t she woke up with a bump to R eye and bruising that has gotten worse as the day has gone on. Unknown injury, denies thinners Care Teams (unrecognized sec tion and content) Dna Sequencing Associate Relationship Specialty Start Date End Date Hortencia Love [address] [place] [address] PCP - General Internal Medicine 02/01/21 Dna Sequencing Associate Relationship Specialty Start Date End Date Hortencia Love DO [address] [place] [address] PCP - General Internal Medicine 02/01/21 Dna Sequencing Associate Relationship Specialty Start Date End Date Hortencia Love DO [address] [place] [address] PCP - General Internal Medicine 02/01/21 Dna Sequencing Associate Relationship Specialty Start Date End Date Hortencia Love DO [address] [place] [address] PCP - General Internal Medicine 02/01/21 Dna Sequencing Associate Relationship Specialty Start Date End Date Hortencia Love DO [address] [place] [address] PCP - General Internal Medicine 02/01/21 Dna Sequencing Associate Relationship Specialty Start Date End Date Hortencia Love DO [address] [place] [address] PCP - General Internal Medicine 02/01/21 Dna Sequencing Associate Relationship Specialty Start Date End Date Hortencia Love DO [address] [place] [address] PCP - General Internal Medicine 02/01/21 Dna Sequencing Associate Relationship Specialty Start Date End Date Hortencia Love DO [address] [place] [address] PCP - General Internal Medicine 02/01/21 Dna Sequencing Associate Relationship Specialty Start Date End Date Hortencia Love DO [address] [place] [address] PCP - General Internal Medicine 02/01/21 Dna Sequencing Associate Relationship Specialty Start Date End Date Hortencia Love [address] [place] [address] PCP - General Internal Medicine 02/01/21 Dna Sequencing Associate Relationship Specialty Start Date End Date Hortencia Love DO [address] [place] [address] PCP - General Internal Medicine 02/01/21 Dna Sequencing Associate Relationship Specialty Start Date End Date Hortencia Love DO [address] [place] [address] PCP - General Internal Medicine 02/01/21 Dna Sequencing Associate Relationship Specialty Start Date End Date Hortencia Love DO [address] [place] [address] PCP - General Internal Medicine 02/01/21 Dna Sequencing Associate Relationship Specialty Start Date End Date Hortencia Love DO [address] [place] [address] PCP - General Internal Medicine 02/01/21 Dna Sequencing Associate Relationship Specialty Start Date End Date Hortencia Love DO [address] [place] [address] PCP - General Internal Medicine 02/01/21 Dna Sequencing Associate Relationship Specialty Start Date End Date Hortencia Love DO [address] [place] [address] PCP - General Internal Medicine 02/01/21 Dna Sequencing Associate Relationship Specialty Start Date End Date Hortencia Love DO [address] [place] [id number] PCP - General Internal Medicine 02/01/21 Dna Sequencing Associate Relationship Specialty Start Date End Date Hortencia Love DO [address] [place], [place] [id number] PCP - General Internal Medicine 02/01/21 Dna Sequencing Associate Relationship Specialty Start Date End Date Hortencia Love DO [address] [place] [address] PCP - General Internal Medicine 02/01/21 Dna Sequencing Associate Relationship Specialty Start Date End Date Hortencia Love DO [address] [place] [address] PCP - General Internal Medicine 02/01/21 Dna Sequencing Associate Relationship Specialty Start Date End Date Hortencia Love DO [address] [place] [id number] PCP - General Internal Medicine 02/01/21 Dna Sequencing Associate Relationship Specialty Start Date End Date Hortencia Love DO [address] [place] [address] PCP - General Internal Medicine 02/01/21 Dna Sequencing Associate Relationship Specialty Start Date End Date Hortencia Love DO [address] [place] [id number] PCP - General Internal Medicine 02/01/21 Dna Sequencing Associate Relationship Specialty Start Date End Date Hortencia Love DO [address] [place], [place] [id number] PCP - General Internal Medicine 02/01/21 Dna Sequencing Associate Relationship Specialty Start Date End Date Hortencia Love DO [address] [place] [address] PCP - General Internal Medicine 02/01/21 Dna Sequencing Associate Relationship Specialty Start Date End Date Michael Flynn MD [address] [address] PCP - General Internal Medicine 12/28/23 Dna Sequencing Associate Relationship Specialty Start Date End Date Michael Flynn MD [address] [address] PCP - General Internal Medicine 12/28/23 Dna Sequencing Associate Relationship Specialty Start Date End Date Michael Flynn MD [address] [address] PCP - General Internal Medicine 12/28/23 Dna Sequencing Associate Relationship Specialty Start Date End Date Michael Flynn MD [address] [address] PCP - General Internal Medicine 12/28/23 Dna Sequencing Associate Relationship Specialty Start Date End Date Michael Flynn MD [address] [address] PCP - General Internal Medicine 12/28/23 ProviderJewell MD [employer]r 01/15/24 01/28/24 Dna Sequencing Associate Relationship Specialty Start Date End Date Michael Flynn MD [address] [address] PCP - General Internal Medicine 12/28/23 Dna Sequencing Associate Relationship Specialty Start Date End Date Michael Flynn MD [address] [address] PCP - General Internal Medicine 12/28/23 Dna Sequencing Associate Relationship Specialty Start Date End Date Michael Flynn MD [address] [address] PCP - General Internal Medicine 12/28/23 Dna Sequencing Associate Relationship Specialty Start Date End Date Michael Flynn MD [address] [address] PCP - General Internal Medicine 12/28/23 Dna Sequencing Associate Relationship Specialty Start Date End Date Michael Flynn MD [address] [address] PCP - General Internal Medicine 12/28/23 Dna Sequencing Associate Relationship Specialty Start Date End Date Michael Flynn MD [address] [address] PCP - General Internal Medicine 12/28/23 Dna Sequencing Associate Relationship Specialty Start Date End Date Michael Flynn MD [address] [address] PCP - General Internal Medicine 12/28/23 Dna Sequencing Associate Relationship Specialty Start Date End Date Michael Flynn MD [address] [address] PCP - General Internal Medicine 12/28/23 Dna Sequencing Associate Relationship Specialty Start Date End Date Michael Flynn MD [address] [address] PCP - General Internal Medicine 12/28/23 Dna Sequencing Associate Relationship Specialty Start Date End Date Michael Flynn MD [address] [address] PCP - General Internal Medicine 12/28/23 Dna Sequencing Associate Relationship Specialty Start Date End Date Hortencia Love DO [address] [place] [address] PCP - General Internal Medicine 02/01/21 12/27/23 Dna Sequencing Associate Relationship Specialty Start Date End Date Michael Flynn MD [address] [address] PCP - General Internal Medicine 12/28/23 Dna Sequencing Associate Relationship Specialty Start Date End Date Jocelynn Shaw MD [address] [place] [id number] PCP - General Internal Medicine 05/23/16 01/31/21 Dna Sequencing Associate Relationship Specialty Start Date End Date Michael Flynn MD [address] [address] PCP - General Internal Medicine 12/28/23 Dna Sequencing Associate Relationship Specialty Start Date End Date Michael Flynn MD [address] [address] PCP - General Internal Medicine 12/28/23 Dna Sequencing Associate Relationship Specialty Start Date End Date Leonarda Boykin MD [address] [place] [address] PCP - General Family Medicine 08/25/24 Dna Sequencing Associate Relationship Specialty Start Date End Date Leonarda Boykin MD [address] [place] [address] PCP - General Family Medicine 08/25/24 Dna Sequencing Associate Relationship Specialty Start Date End Date Leonarda Boykin MD [address] [place] [address] PCP - General Family Medicine 08/25/24 Dna Sequencing Associate Relationship Specialty Start Date End Date Leonarda Boykin MD [address] [place] [address] PCP - General Family Medicine 08/25/24 Dna Sequencing Associate Relationship Specialty Start Date End Date Leonarda Boykin MD [address] [place] [address] PCP - General Family Medicine 08/25/24 Dna Sequencing Associate Relationship Specialty Start Date End Date Leonarda Boykin MD [address] [place] [address] PCP - General Family Medicine 08/25/24 Dna Sequencing Associate Relationship Specialty Start Date End Date Leonarda Boykin MD [address] [place] [address] PCP - General Family Medicine 08/25/24 Dna Sequencing Associate Relationship Specialty Start Date End Date Leonarda Boykin MD [address] [place] [address] PCP - General Family Medicine 08/25/24 Dna Sequencing Associate Relationship Specialty Start Date End Date Leonarda Boykin MD [address] [place] [address] PCP - General Family Medicine 08/25/24 Khushi Dawkins PA-C [address] [place] [address] [employer] [facility] 09/25/24 Dna Sequencing Associate Relationship Specialty Start Date End Date Leonarda Boykin MD [address] [place] [address] PCP - General Family Medicine 08/25/24 Khushi Dawkins PA-C [address] [place] [address] [facility] Dna Sequencing Associate Relationship Specialty Start Date End Date Leonarda Boykin MD [address] [place] [address] PCP - General Family Medicine 08/25/24 Khushi Dawkins PA-C [address] [place] [address] [facility] Dna Sequencing Associate Relationship Specialty Start Date End Date Leonarda Boykin MD [address] [place] [address] PCP - General Family Medicine 08/25/24 Khushi Dawkins PA-C [address] [place] [address] [facility] 09/25/24 Dna Sequencing Associate Relationship Specialty Start Date End Date Leonarda Boykin MD [address] [place] [address] PCP - General Family Medicine 08/25/24 Khushi Dawkins PA-C [address] [place] [address] [id number] [facility] 09/25/24 Dna Sequencing Associate Relationship Specialty Start Date End Date Leonarda Boykin MD [address] [place] [address] [phone] PCP - General Family [facility] 08/25/24 Khushi Dawkins PA-C [address] [place] [address] [phone] [facility]/24 Dna Sequencing Associate Relationship Specialty Start Date End Date Leonarda Boykin MD [address] [place] [address] [phone] PCP - [facility] Family [facility] 08/25/24 Khushi Dawkins PA-C [address] [place] [address] [phone] [facility] 09/25/24 Dna Sequencing Associate Relationship Specialty Start Date End Date Generic Provider, [place] [address] PCP - General [employer] 03/05/25 FOR RECORDS PERTAINING TO PATIENTS WHO [...] BE BASED ON THE PRIMARY CLINICAL RECORDS. [facility]. provides no warranty or guarantee of the accuracy or completeness of information in this document.
== END | disposition home or self-care (01) ==
PROVIDERS: PCP Nurse Practitioner Family; Referring Provider Psychiatry & Neurology Neurology; Visit Provider Psychiatry & Neurology Neurology
DX: M81.0 Age-related osteoporosis without current pathological fracture (principal); Z78.0 Asymptomatic menopausal state
CPT/HCPCS: 77080

== ENCOUNTER → 2025-04-07 | Outpatient (CLI) | payer MEDICARE, SELFPAY ==
--- NOTE | 2025-04-07 15:25 | MRI_ITS ---
PROCEDURE: SPINE CERVICAL (ROUTINE) 04/07/2025 REASON FOR EXAM: CERVICALGIA; PARESTHESIAS TECHNIQUE: Procedure Code: MRISP Modality: MR Procedure: SPINE CERVICAL (ROUTINE) Multiplanar and multisequence images were obtained without IV contrast administration. COMPARISON: MRI cervical spine 01/14/2024. FINDINGS: Vertebrae: Cervical vertebral body heights are preserved. Bone marrow signal is unremarkable. Alignment: Normal. No spondylolisthesis. Spinal Cord: Cervical spinal cord is of normal size and signal intensities. Structures at the foramen magnum are unremarkable. C2-3: No foraminal or canal stenosis. C3-4: Disc osteophyte complex. Severe left and mild right foramina stenosis. Moderate canal stenosis. C4-5: Disc osteophyte complex. Uncovertebral hypertrophy. Severe bilateral foramina stenosis. Moderate canal stenosis. C5-6: Disc osteophyte complex. Facet joint arthropathy. Severe bilateral foramina stenosis. Moderate canal stenosis. C6-7: Disc osteophyte complex. Uncovertebral hypertrophy. Severe bilateral foramina stenosis. Moderate canal stenosis. C7-T1: Unremarkable MRI/Spine Cervical (Routine) IMPRESSION: Worsening degenerative changes of the cervical spine compared to MRI 01/22/2024 . Moderate canal stenosis and severe bilateral foramina stenosis C4-C5, C5-C6 and C6-C7. Reading Location: [facility]
== END | disposition home or self-care (01) ==
PROVIDERS: PCP Nurse Practitioner Family; Referring Provider Psychiatry & Neurology Neurology; Visit Provider Psychiatry & Neurology Neurology
DX: M54.2 Cervicalgia (principal); R20.2 Paresthesia of skin
CPT/HCPCS: 72141

== ENCOUNTER → 2025-04-24 | Outpatient (CLI) | payer MEDICARE, SELFPAY | END | disposition home or self-care (01) | LOC: US 09:51 | PROVIDERS: PCP Nurse Practitioner Family; Referring Provider Orthopaedic Surgery Sports Medicine; Visit Provider Orthopaedic Surgery Sports Medicine | DX: M71.22 Synovial cyst of popliteal space [Baker], left knee (principal) | CPT/HCPCS: 76999 ==

== ENCOUNTER 2025-05-12 10:30 | Outpatient (RCR) | payer MEDICARE, SELFPAY ==
--- NOTE | 2025-02-24 11:53 | HP.PTEVAL_ITS ---
Patient's Visit Information Visit Information Visit Information: GIOVANNA LITTLE is a 64 year old F referred to Physical Therapy by VENU Rios with a diagnosis of cervicalgia. Date of Evaluation: 02/24/25 Physical Therapist: Armando Miranda, ARIANAT, OCS, CSCS Visit Plan Frequency: 2x /Week Duration: 4-6 Weeks Plan: 2x/week for 4-6 weeks: IE HEP: cervical retraction 15x, scap circles 20x, L rotation with OP 10x all 2x/day, postural focus. Treat with MH and subocc and UT STM and manual rotationn mobs and PA mobs t/s cervical, then out to gym for more aggressive strngth of neck and scap and shoul ders progressing to HEP Subjective Subjective: Neck pain she believes is muscular. Had PT in spring and it helped. [place] and which moved quickly and shook a bit and startled her. neck did not hurt immediately but got sore after that. [place] it a few days later and neck has been sore since. Slowly worsening. Shy is R and left occipital region. Keeps her up at night often, up a number of times at night. Hurts at rest minimally. activities are eefectd in that she has to be careful with outdoor duties, she gets worse to look down. Retired. Hobbies: avoids lifting. Will see Dr. Alatorre for R shoulder pain. Whole body thing that she had in the spring is improving. Exercises : was doing exercises reguarly until January . Included isometrics, UT stretches Pain neck: Pain Intensity (Out of 10): 1 Pain Intensity Range: 1 and 6 Objective Objective: L 60 degree rotation and painful L subocc, R is 72 and painfree, ext is 55 and no pain, flexion is full and tight. Posture is forward heead and protracted scap. Scap ROm is good but weeak with winging in 30 flexion testing being obvious. UE AROM WFL and without pain. reflexes 1/3 bi and tri B. Sensation UE WNL to gross light touch B. strength UE 3+ flexion, abd , 4- IR, ER B, 4 bi and triceps B. thumb extension 4 B., no myotomal problems. Tender to palpation subocc L >R adn mildly into UT B - c/s compression test. - alar ligament, - VAT Balance/Special Test Scores Oswestry Neck Score: 19 Goals Goal 1:: Full symmetrical c/s rotation without increased pain Goal Time Frame: 4-6 Weeks Goal 2:: sleep without discomfort at night in neck Goal Time Frame: 2-4 Weeks Goal 3:: I appropriate HEP strength to limit future prob lems Goal Time Frame: 4-6 Weeks Goal 4:: Pain in neck 90% better and 1/10 at worst Goal Time Frame: 4-6 Weeks Goal 5:: oswestry score 5 or better Goal Time Frame: 4-6 Weeks Rehabilitation Potential Physical Therapy Diagnosis: neck stiffness and discomfort limiting funciton Rehabilitation Potential: Good Anticipated Interventions Patient/Client Instruction: Educate patient on: Condition and Plan of Care For the Purpose of:: To decrease pain, To increase ROM, To improve nutrient delivery to tissue, To improve muscle performance and motor function, To increase tolerance to activity/condition/position and To improve ability of physical actions for home/community/work/leisure Therapeutic Exercise to Include: Strength training, Postural training, Fl exibilty training, Relaxation training, Passive ROM, Active ROM and Scapular Strength/Stabilization For the Purpose of:: To decrease pain, To increase ROM, To improve nutrient delivery to tissue, To improve muscle performance and motor function, To increase tolerance to activity/condition/position and To improve ability of physical actions for home/community/work/leisure Manual Therapy Techniques to Include: Mobilization, Passive ROM and Soft tissue mobilization For the Purpose of:: To decrease pain, To increase ROM, To improve nutrient delivery to tissue and To improve muscle performance and motor function Thermo therapy (hot pack): Yes For the Purpose of:: To improve nutrient delivery to tissue Text: Thank you for the opportunity to evaluate your patient. For Medicare and Medicare HMO plans, please review the plan of care and approve it. It will need to be FAXED BACK to us at [phone] for Medicare purposes. For Medicare only, by signing this I certify the plan of care. Please let me know if there are questions or concerns regarding this plan of care. Physician Signature: Date:
--- NOTE | 2025-03-31 16:01 | HP.PTREVAL ---
Re-Evaluation Intro: VENU Rios, It has been my pleasure to treat GIOVANNA LITTLE over the last 3 visits for L knee pain, bakers cyst.. Please see the progress note below for an update on the physical therapy plan of care! Subjective Subjective: Wants to hold on neck and got script for L knee which she has a kathleen's cyst that causes pain constant at 8-9/10 whole L knee painful. Sometimes might be better than that. Sleep is interrupted and it wakes her up. Activities keeps her from walking for fitness. Tried to walk and made a half mile adn worse quickly. Used to walk 3 miles per day. MRI showed bakers cyst but no other problems. Possibly a little OA. Pt does not want to look at shoulder or neck but focus on knee right now and shoulder maybe later. Objective Objective/Function: L knee aROM is full vs R but painful slightly in anterior knee. Very small patella B and rg. quads are mod tight and that is described as pain by patient. hypermobile elsewhre especially HS and into IR at hip. Tendency is IR at hip with steps, ankle movements, core stability testing. Weak er at 3 and IR 4-, abd 3 ext 3, flexion 4- B. Tenderness post L knee and small byump(cyst ) noted. pt does not wish to wrok on shoulder or neck anymore until knee is feeling better. New POC and fair prognosis Neck goals moot now and new goals set for knee Plan Plan Plan: 2x/week for 4 weeks for... 1. pt to get compression garment for L knee or ACEWRAP. 2. strengtheen L hip and knee and core, start mat, get doing at home and move to gym when able, exit strategy is membership in gym for knee, hip core strength. May do metal tool to post jt line and rollout to quad. Fair prognosis IE HEP quad stretch L 30" 5x daily. Compression garment Balance/Gait/Functional tests Balance/Special Test Scores Oswestry Neck Score: 19 Lower Extremity Functional Score: 45 Goals Goals Goal 1:: I appropriate knee hip adn core strength in gyma dn HEP to minimize future problems. Goal Time Frame: 4-6 Weeks Goal Progress: NEW GOAL Goal 2:: Pain in L knee 0-3/10 at worst adn 75% better Goal Time Frame: 4-6 Weeks Goal Progress: NEW GOAL Goal 3:: LEFS score 55 Goal Time Frame: 4-6 Weeks Goal Progress: NEW GOAL Goal 4:: Pain in neck 90% better and 1/10 at worst Goal Time Frame: 4-6 Weeks Goal 5:: oswestry score 5 or better Goal Time Frame: 4-6 Weeks Anticipated Interventions Anticipated Interventions Patient/Client Instruction: Educate patient on: Condition and Plan of Care For the Purpose of:: To decrease pain, To increase ROM, To improve nutrient delivery to tissue, To improve muscle performance and motor function, To increase tolerance to activity/condition/position and To improve ability of physical actions for home/community/work/leisure Therapeutic Exercise to Include: Strength training, Postural training, Flexibilty training, Relaxation training, Passive ROM, Active ROM and Scapular Strength/Stabilization Comment: hip knee adn core For the Purpose of:: To decrease pain, To increase ROM, To improve nutrient delivery to tissue, To improve muscle performance and motor function, To increase tolerance to activity/condition/position and To improve ability of physical actions for home/community/work/leisure Manual Therapy Techniques to Include: Mobilization, Passive ROM and Soft tissue mobilization For the Purpose of:: To decrease pain, To increase ROM, To improve nutrient delivery to tissue and To improve muscle performance and motor function Other: compression Thermo therapy (hot pack): Yes For the Purpose of:: To improve nutrient delivery to tissue Re-Evaluation Ending Re-evaluation ending: Please do not hesitate to contact me at [phone] by phone or if you have questions or concerns regarding this new plan of care! Sincerely, Armando Miranda, DPT, OCS, CSCS
--- NOTE | 2025-04-27 13:19 | HP.PTREVAL ---
Re-Evaluation Intro: VENU Rios, It has been my pleasure to treat GIOVANNA LITTLE over the last 9 visits for L knee pain, bakers cyst.. Please see the progress note below for an update on the physical therapy plan of care! Subjective Subjective: Had US on L knee and doc plan is for drainage and cortisone injection. Pt not keen on steroid injection. Knee pain is still 7/10 and hopes draining it will help. L side of neck is still hurting but [place] not returned adn wants to avoid that. Knee pain not much bettr and feels a little strongeer. Has script for hip and will take care of that after last two weeks of current POC on neck. Pt will have bakers cyst drained and consider strength of knee after hip taken care of. Objective Objective/Function: L rotation c/s still limited and painful at c12 paraspianals and lev scap origing. 55 L rotation adn 68 R rotation, ext is good but painful L and still slightly deviates R. Appropriate to w0rk on this per intiial POC for two more weeks. Knee is not improving but she njoys the strength. Wants to have it drained and see how it does. initial POC for neck appropriate to [facility] as patient did not wish to work on that until knee PT was over. Plan Plan Plan: 2x/week for 2 more weeks for L UT and lev scap STM and ensure streetching, PROM to L rotation with mobs, MH as needed. US to l subocc area. No mre knee treatment at this time as it will be discharged adn pt to have it drained after recent f/u with doctor. Has hip script adn will wait to have that done until neck chart is completed in two weeks, that should includ gneral strngth when she is ready also. Intial nck POC to be finished with those goals for 2 mor weeks. Knee to be discharged. Balance/Gait/Functional tests Balance/Special Test Scores Oswestry Neck Score: 19 Lower Extremity Functional Score: 45 Goals Goals Goal 1:: I appropriate knee hip adn core strength in gyma dn HEP to minimize future problems. Goal Time Frame: 4-6 Weeks Goal Progress: Progressing, wait for hip Goal 2:: Pain in L knee 0-3/10 at worst adn 75% better Goal Time Frame: 4-6 Weeks Goal Progress: Not Progressing Goal 3:: LEFS score 55 Goal Time Frame: 4-6 Weeks Goal Progress: Not Progressing Goal 4:: Pain in neck 90% better and 1/10 at worst Goal Time Frame: 4-6 Weeks Goal Progress: approp 2 more weeks Goal 5:: oswestry score 5 or better Goal Time Frame: 4-6 Weeks Goal Progress: approp 2 more weeks. Goal 6:: I neck stretches and ROM and posture to maintain improvements. Goal Time Frame: 2 Weeks Goal Progress: NEW GOAL Anticipated Interventions Anticipated Interventions Patient/Client Instruction: Educate patient on: Condition and Plan of Care For the Purpose of:: To decrease pain, To increase ROM, To improve nutrient delivery to tissue, To improve muscle performance and motor function, To increase tolerance to activity/condition/position and To improve ability of physical actions for home/community/work/leisure Therapeutic Exercise to Include: Strength training, Postural training, Flexibilty training, Relaxation training, Passive ROM, Active ROM and Scapular Strength/Stabilization Comment: hip knee adn core For the Purpose of:: To decrease pain, To increase ROM, To improve nutrient delivery to tissue, To improve muscle performance and motor function, To increase tolerance to activity/condition/position and To improve ability of physical actions for home/community/work/leisure Manual Therapy Techniques to Include: Mobilization, Passive ROM and Soft tissue mobilization For the Purpose of:: To decrease pain, To increase ROM, To improve nutrient delivery to tissue and To improve muscle performance and motor function Other: compression Thermo therapy (hot pack): Yes For the Purpose of:: To improve nutrient delivery to tissue Re-Evaluation Ending Re-evaluation ending: Please do not hesitate to contact me at [phone] by phone or if you have questions or concerns regarding this new plan of care! Sincerely, Armando Miranda, DPT, OCS, CSCS
--- NOTE | 2025-05-12 11:34 | HP.PTDCSUM ---
Discharge Summary D/C summary: It has been my pleasure to treat GIOVANNA LITTLE referred by VENU Rios, with the diagnosis of L knee pain, bakers cyst. for a total of 12 visit(s). Discharge Date: 05/12/25 Please see the following information for a summary of their discharge status. Subjective Subjective: Getting knee aspirated according to note. US did not agree with me and whole body feels like it is stinging. Did not like the soft tissue work. Whole body is achy. Seeing neurologist soon. had MRI on neck adn will get results at that follow up. No worse after current exercises, no f/u with ortho. Pain neck: Pain Intensity (Out of 10): 7 L knee: Pain Intensity (Out of 10): 7 bilat hip: Pain Intensity (Out of 10): 7 Overall Improvement % Improvement: 0 Objective Objective/Function: 70 B rotation, somepain to L. 55 extension Overall body num bness and tingling adn not improving. Goals Goal 1:: I appropriate knee hip adn core strength in gyma dn HEP to minimize future problems. Goal Progress: Progressing, wait for hip Goal 2:: Pain in L knee 0-3/10 at worst adn 75% better Goal Progress: Not Progressing Goal 3:: LEFS score 55 Goal Progress: Not Progressing Goal 4:: Pain in neck 90% better and 1/10 at worst Goal Progress: Not Progressing Goal 5:: oswestry score 5 or better Goal Progress: Not Progressing Goal 6:: I neck stretches and ROM and posture to maintain improvements. Goal Progress: Not Progressing Plan Plan: d/c , pt back to doctor. Neuro D/C Information Discharge Comments: Pt back to doctor adn neurologist due to not improving in neck or knee d/c sentence: If there are questions or concerns regarding this patient's physical therapy, please feel free to call me at [phone]. Thank you for the referral of this patient. Sincerely, Armando Miranda, DPT, OCS, CSCS Balance/Gait/Functional tests Balance/Special Test Scores Oswestry Neck Score: 23 Lower Extremity Functional Score: 45 Improvement % Improvement: 0
== END 2025-05-12 15:14 | disposition home or self-care (01) ==
LOC: PT 10:30
PROVIDERS: PCP Family Medicine Sports Medicine; Referring Provider Student in an Organized Health Care Education/Training Program; Visit Provider Student in an Organized Health Care Education/Training Program
DX: M17.12 Unilateral primary osteoarthritis, left knee (principal); M25.562 Pain in left knee; M54.2 Cervicalgia
CPT/HCPCS: 97035; 97110; 97140; 97161; 97164; 97530

== ENCOUNTER 2025-05-18 16:23 | Emergency (ER) | payer MEDICARE, SELFPAY ==
[2025-05-18 16:29] VITALS: BP 124/79; PULSE 70; RESP 16; TEMP 36.6; O2SAT 99; BMI 18.8
--- NOTE | 2025-05-18 16:40 | RAD_ITS ---
PROCEDURE: RAD/Foot min 3 Views
--- NOTE | 2025-05-18 18:13 | ED.VIS.LOWEX ---
HPI History of Present Illness HPI Narrative: Patient presents with injury to her right fourth toe that occurred today. Patient states she accidentally hit her toe against a bench. The patient states her pain is sharp and aching. Patient states it is worse with movement. Patient states nothing makes it better. Patient denies any paresthesias or weakness. Patient denies any radiation of the pain. Patient denies any other injuries. Chief Complaint: Lower Extremity Injury Informant: patient Occured/Mechanism Mechanism/Context: Yes blunt trauma and Yes direct blow Onset/Context/Timing Onset: Today Context: Sudden Onset Timing: Continuous Quality of Pain: Sharp and Aching Location: Right fourth toe Worsened by: Movement Relieved by: Rest Associated Symptoms Associated Symptoms: Negative for Parasthesia, Weakness or Loss of Funtion [facility] Medical History Tinea corporis Arthrosis of right acromioclavicular joint Right rotator cuff tendonitis Right rotator cuff tear Synovial cyst of popliteal space [[place]], left knee Osteoarthritis of left knee Left knee pain Muscle strain of left hip Left hip pain Post-menopausal Hypertension Impingement of right shoulder Right shoulder pain Physical exam, pre-employment Home Medications ?Medication ?Instructions ?Recorded ?Last Taken ?Type losartan 50 mg-hydrochlorothiazide 1 tab PO DAILY 11/16/23 Unknown History 12.5 mg tablet cholecalciferol (vitamin D3) 25 50 mcg PO QDAY 10/31/24 Unknown History mcg (1,000 unit) tablet cyanocobalamin (vitamin B-12) 25 50 mcg PO DAILY 10/31/24 Unknown History mcg tablet doxepin 10 mg capsule 10 mg PO QHS 10/31/24 Unknown History magnesium citrate 70 mg-potassium 1 cap PO QDAY 10/31/24 Unknown History citrate 99 mg capsule methocarbamol 500 mg tablet 500 mg PO BID PRN 12/17/24 Unknown History buspirone 5 mg tablet 5 mg PO BID #60 tabs 03/23/25 Unknown Rx calcium carbonate 600 mg PO QDAY 04/20/25 Unknown History clotrimazole 1 % topical cream 1 applic topical BID 4 weeks #45 04/22/25 Unknown Rx grams etodolac 500 mg tablet 500 mg PO BID PRN pain #40 tabs 05/15/25 Unknown Rx Allergy/AdvReac Type Severity Reaction Status Date / Time Penicillins (PCN) Allergy Hives Verified 05/18/25 16:31 prednisone Allergy Unknown Verified 05/18/25 16:31 fluticasone (From Flovent AdvReac Mental Verified 05/18/25 16:31 HFA) status change Family History Mother Hypertension CVA (cerebral vascular accident) Surgical History Hx of appendectomy Social History household members: none Smoking Status: Former smoker alcohol intake: never substance use type: does not use what type of physical activity do you participate in: walking frequency: 3-4 times per week do you feel safe at home: Yes ROS ROS ED Constitutional Constitutional ED: Denies chills or fever(s) Eyes Eyes: Denies blurry vision or change in vision ENT ENT ED: Denies rhinorrhea or sore throat Cardiovascular Cardiovascular: Denies chest pain or palpitations Respiratory/Chest Respiratory/Chest: Denies cough or dyspnea Gastrointestinal Gastrointestinal: Denies nausea or vomiting Genitourinary Genitourinary ED: Denies dysuria or hematuria Musculoskeletal Musculoskeletal: Reports neck pain; Denies back pain Integumentary Denies abscess or rash Neurologic Neurologic: Denies headache(s) or weakness Allergic/Immunologic Allergic/Immunologic ED: Denies mouth swelling or urticaria EXAM Physical Exam Const Vital Signs: 05/18/25 16:29 Temperature 97.8 F Temperature Source Oral Pulse Rate 70 Respiratory Rate 16 Blood Pressure 124/79 H Blood Pressure Mean 94 Pulse Ox 99 Oxygen Delivery Method Room Air Positive well nourished and well developed Constitutional Narrative: BMI is 18.8. General Appearance ED: well developed and NAD HEENT Reports moist mucous membranes normocephalic and atraumatic Neck full ROM and supple Extremity Extremity Narrative: There is tenderness with mild edema and ecchymosis over the right fourth toe. There is no obvious deformity noted. Range of motion was slightly limited in all motions of the fourth toe secondary to pain. Sensation is intact to light touch in all digits. Capillary refill is less than 2 seconds in all digits. Pedal pulses are equal bilaterally. Strength is 5/5 bilaterally in the lower extremities. Neuro oriented x3, CN's II-XII intact bilaterally, moves all extremities and no sensory deficits noted Sensorium / Orientation: alert Motor Exam: strength 5/5 throughout Psych mental status grossly normal MDM MDM MDM Narrative Medical decision making narrative: Differential diagnose includes fracture, sprain, and contusion. X-rays of the right foot will be obtained to assess for fracture. Radiography Diagnostic Testing: Clinical Impression(s) from Imaging Studies Foot X-Ray 05/18/25 16:40 IMPRESSION: No acute fracture or dislocation. Reading Location: [facility] X-rays of the right foot were obtained. There are 3 views. On my independent interpretation, there is no acute fracture or dislocation noted. There is no soft tissue swelling noted. Radiologist also interpreted the x-rays and agrees. Treatment and Re-Evaluation Narrative: Patient was advised of her findings. Patient was given a postop shoe. Patient was instructed to ice and elevate the right foot. Patient was instructed to follow-up with her primary care physician in 5 to 7 days. Patient understood and was agreeable with the plan. All questions were answered. Discharge Plan Triage Chief Complaint: Lower Extremity Injury ED Provider: Armando Gonzalez Dx/Rx/DC Orders Clinical Impression: Contusion of fourth toe of right foot, Osteoporosis, Hypertension Instructions: ED Foot Contusion Prescriptions: No Action losartan-hydrochlorothiazide 50-12.5 mg tablet 1 tab PO DAILY cyanocobalamin (vitamin B-12) 25 mcg tablet 50 mcg PO DAILY doxepin 10 mg capsule 10 mg PO QHS cholecalciferol (vitamin D3) 25 mcg (1,000 unit) tablet 50 mcg PO QDAY mag citrate-potassium citrate 70-99 mg capsule 1 cap PO QDAY buspirone 5 mg tablet 5 mg PO BID Qty: 60 3RF methocarbamol 500 mg tablet 500 mg PO BID PRN calcium carbonate 600 mg calcium (1,500 mg) tablet 600 mg PO QDAY clotrimazole 1 % cream 1 applic topical BID 28 Days Qty: 45 0RF etodolac 500 mg tablet 500 mg PO BID PRN (Reason: pain) Qty: 40 0RF Rx Instructions: Do not take in conjunction with other NSAID. Tylenol is okay. Primary Care Provider: Breanna Berry Referrals: Breanna Berry, MEDICAL DIR-C [Primary Care Provider, Family Practice] - 5-7 Days Print Language: Kiswahili Disposition Disposition: Home, Self Care
[2025-05-18 18:28] VITALS: BP 124/72; PULSE 68; RESP 18; TEMP 36.8; O2SAT 98
== END 2025-05-18 18:32 | disposition home or self-care (01) ==
PROVIDERS: Emergency Provider Emergency Medicine; PCP Nurse Practitioner Family; Visit Provider Emergency Medicine
DX: S90.121A Contusion of right lesser toe(s) without damage to nail, initial encounter (principal); W22.03XA Walked into furniture, initial encounter; M81.0 Age-related osteoporosis without current pathological fracture; I10 Essential (primary) hypertension; Z87.891 Personal history of nicotine dependence
CPT/HCPCS: 73630; 99282

== ENCOUNTER → 2025-05-18 | Outpatient (CLI) | payer MEDICARE, SELFPAY ==
--- NOTE | 2025-05-18 14:09 | BI_ITS ---
EXAM: BI/SCRN MAMM (CAD)W/ABRAHAM BILAT
== END | disposition home or self-care (01) ==
LOC: OPBI 14:08
PROVIDERS: PCP Nurse Practitioner Family; Referring Provider Nurse Practitioner Family; Visit Provider Nurse Practitioner Family
DX: Z12.31 Encounter for screening mammogram for malignant neoplasm of breast (principal)
CPT/HCPCS: 77063; 77067

== ENCOUNTER → 2025-06-01 | Outpatient (CLI) | payer MEDICARE, SELFPAY ==
--- NOTE | 2025-06-01 09:39 | MRI_ITS ---
PROCEDURE: BRAIN WITHOUT CONTRAST 06/01/2025 REASON FOR EXAM: HEADACHE; OCCIPITAL NEURALGIA TECHNIQUE: Procedure Code: MRIBR Modality: MR Procedure: BRAIN WITHOUT CONTRAST Multiplanar and multisequence images were obtained. FINDINGS: The brain parenchyma appears unremarkable. The magana-white matter differentiation is appropriate. The ventricles are normal in size and configuration. No midline shift. The midline structures are intact, specifically the corpus callosum, septum pellucidum, pituitary gland, and cerebellar vermis. The cervicomedullary junction appears unremarkable. The paranasal sinuses and mastoid air cells are clear. Diffusion-weighted images demonstrate no restricted diffusion. No MR evidence of acute ischemia. MRI/Brain without Contrast IMPRESSION: Unremarkable MRI of the brain. Reading Location: [id number]
== END | disposition home or self-care (01) ==
LOC: MRI 09:35
PROVIDERS: PCP Nurse Practitioner Family; Referring Provider Psychiatry & Neurology Neurology; Visit Provider Psychiatry & Neurology Neurology
DX: M54.81 Occipital neuralgia (principal); R51.9 Headache, unspecified
CPT/HCPCS: 70551

== ENCOUNTER → 2025-07-01 | Outpatient (CLI) | payer MEDICARE, SELFPAY ==
--- NOTE | 2025-07-01 13:02 | NEURO ---
NCS and/or EMG Patient Report Ordering Doctor: Yves Ríos DATE OF SERVICE: 07/01/25 David presents complaints of pain in both lower limbs Electrodiagnostic findings: Peroneal motor nerve demonstrates normal distal latency and amplitude bilaterally. There is a drop of greater than 10 ms bilaterally across the fibular head. Tibial motor response within normal limits bilaterally. Normal tibial and peroneal F?waves. Sensory responses are normal. Normal tibial H?reflex bilaterally. Needle EMG testing was performed in the lower limbs. All muscles tested showed no evidence of denervation with normal motor unit action potentials. Electrodiagnostic impression: This is an abnormal study 1. Electrodiagnostic findings suggestive of bilateral peroneal mononeuropathy, with drop in conduction across the fibular head. 2. No electrodiagnostic evidence is noted for lumbosacral radiculopathy. Multi Select Codes Neurology Neurology Interp Codes: 26157-42 Musc test done w/n test comp (interp) (2) and 05599-75 Nrv cndj test 11-12 studies (interp)
== END | disposition home or self-care (01) ==
PROVIDERS: PCP Nurse Practitioner Family; Referring Provider Psychiatry & Neurology Neurology; Visit Provider Psychiatry & Neurology Neurology
DX: R20.2 Paresthesia of skin (principal)
CPT/HCPCS: 95886; 95911

== ENCOUNTER → 2025-07-06 | Outpatient (CLI) | payer MEDICARE, SELFPAY ==
--- NOTE | 2025-07-06 09:45 | MRI_ITS ---
PROCEDURE: SPINE LUMBAR (ROUTINE) 07/06/2025 REASON FOR EXAM: Back pain. TECHNIQUE: Procedure Code: MRISPL Modality: MR Procedure: SPINE LUMBAR (ROUTINE) COMPARISON: None available. FINDINGS: For the purposes of this report, the most caudal rectangular vertebral body will be designated L5. The next most caudal trapezoidal shaped vertebral body will be designated S1. The intervening disc at the lumbosacral angle is designated L5-S1. The lumbar lordosis is maintained. The lumbar vertebral bodies are normal in height. Grade 1 L2-L3 retrolisthesis. The lumbar bone marrow signal is within normal limits. Multilevel disc desiccation. There is no evidence of signal abnormality in the imaged distal spinal cord. The conus medullaris terminates at the level of L1. T12-L1: No significant spinal canal stenosis or neural foraminal narrowing. L1-L2: No significant spinal canal stenosis or neural foraminal narrowing. L2-L3: Disc bulge, bilateral facet arthrosis, and ligamentum flavum hypertrophy. Mild spinal canal stenosis. The bilateral traversing nerve roots abut the disc. No significant neural foraminal narrowing. L3-L4: Disc bulge contributes to mild spinal canal stenosis. No significant neural foraminal narrowing. L4-L5: Disc bulge, bilateral facet arthrosis, and ligamentum flavum hypertrophy. Mild spinal canal stenosis. Mild right and moderate left neural foraminal narrowing.. L5-S1: Disc bulge flattens the ventral thecal sac. Bilateral facet arthrosis and ligamentum flavum hypertrophy. Mild left neural foraminal narrowing. No significant right neural foraminal narrowing. Expansile Tarlov cyst along the level of S2 and S3 measuring approximately 3.5 x 1.9 x 4.1 cm. Additional multiple Tarlov cysts in the sacrum predominantly on the right. MRI/Spine Lumbar (Routine) IMPRESSION: 1. Lumbar spondylosis without high-grade spinal canal or neural foraminal steno sis. 2. Expansile 3.5 x 1.9 x 4.1 cm Tarlov cyst along the level of S2 and S3. Reading Location: [facility]
== END | disposition home or self-care (01) ==
PROVIDERS: PCP Nurse Practitioner Family; Referring Provider Orthopaedic Surgery; Visit Provider Orthopaedic Surgery
DX: M54.50 Low back pain, unspecified (principal)
CPT/HCPCS: 72148